=== PATIENT | female | born 1965 | race American Indian/Alaskan Native ===

== ENCOUNTER 2021-02-01 16:56 | Inpatient (IN) | payer MEDICARE ==
[2021-02-01] MEDS ORDERED: DEXTROSE 50% IN WATER (25GM) 50 ML SYRINGE IV ONE ×4 (17:05→23:51)
--- NOTE | 2021-02-01 17:57 | Emergency Department Report ---
ED General Adult HPI - General Chief complaint: Hypoglycemia Stated complaint: LOW BLOOD GLUCOSE Time Seen by Provider: 02/01/21 17:02 Source: EMS Mode of arrival: Stretcher Limitations: Other - History of Present Illness Initial comments: 55-year-old female, history of diabetes, hypertension, end-stage renal disease, presents to ED via EMS for hypoglycemia. Per EMS, this is the third episode of hypoglycemia that they were called out for today. The previous to EMS cause, patient was given D50 and was not transported. This time, EMS reports Accu-Chek was 28. He was given 1 amp of D50 and transported to the ED. Here in the ED her Accu-Chek is 38. Patient is awake and alert. Patient takes glyburide 2.5 mg daily, she is not on insulin. Daughter at bedside, she reports patient is on dialysis. She is on a schedule. Today is currently Wednesday. She missed dialysis today. Patient went to dialysis on . Vincenzo audreytomeka missed dialysis earlier this week on Wednesday due to diarrhea. Daughter reports patient had a prolonged hospitalization for approximately 1.5 months at [facility]. She then went into rehab and was discharged from rehab last week. Patient is poor historian. Daughter states she is unsure what the patient's diagnosis was, but states she initially went in for abdominal pain. States patient did not undergo any surgeries. Patient is not ambulatory. Patient is deaf. -: This morning Consistency: intermittent Improves with: eating, other (D50) Worsens with: none Associated Symptoms: denies other symptoms Treatments Prior to Arrival: other (D50) - Related Data Previous Rx's Medication Instructions Recorded Last Taken Type Lispro Insulin [HumaLOG] 0 unit SUB-Q ACHS units 03/30/19 Unknown Rx Aspirin EC [Halfprin EC] 81 mg PO QDAY #30 tablet 04/08/20 Unknown Rx Insulin Lispro [Humalog] 5 unit SUB-Q ACHS #1 vial 04/08/20 Unknown Rx amLODIPine 10 mg PO QDAY #30 tablet 04/08/20 Unknown Rx carvediloL [Coreg] 6.25 mg PO BID #60 tablet 04/08/20 Unknown Rx hydrALAZINE [Apresoline TAB] 100 mg PO Q8HR #90 tab 04/08/20 Unknown Rx oxyCODONE /ACETAMINOPHEN [Percocet 1 tab PO Q6H PRN tablet 04/08/20 Unknown Rx 5/325 mg] Allergies Allergy/AdvReac Type Severity Reaction Status Date / Time No Known Allergies Allergy Verified 09/29/13 06:44 ED Review of Systems ROS: Stated complaint: LOW BLOOD GLUCOSE Other details as noted in HPI Comment: All other systems reviewed and negative Constitutional: denies: chills, fever Gastrointestinal: diarrhea ED Past Medical Hx - Past Medical History Hx Hypertension: Yes Hx Heart Attack/AMI: No Hx Congestive Heart Failure: No Hx Diabetes: Yes Hx Deep Vein Thrombosis: No Hx Liver Disease: No Hx Renal Disease: Yes (dialysis m/w/f) Hx Kidney Stones: No Hx Asthma: No Hx COPD: No Additional medical history: Deaf - Surgical History Hx Coronary Stent: No Hx Pacemaker: No Hx Internal Defibrillator: No Additional Surgical History: right chest permacath - Social History Smoking Status: Unknown if ever smoked - Medications Home Medications: Home Medications Medication Instructions Recorded Confirmed Last Taken Type Lispro Insulin [HumaLOG] 0 unit SUB-Q ACHS units 03/30/19 04/07/20 Unknown Rx Aspirin EC [Halfprin EC] 81 mg PO QDAY #30 tablet 04/08/20 Unknown Rx Insulin Lispro [Humalog] 5 unit SUB-Q ACHS #1 vial 04/08/20 Unknown Rx amLODIPine 10 mg PO QDAY #30 tablet 04/08/20 Unknown Rx carvediloL [Coreg] 6.25 mg PO BID #60 tablet 04/08/20 Unknown Rx hydrALAZINE [Apresoline TAB] 100 mg PO Q8HR #90 tab 04/08/20 Unknown Rx oxyCODONE /ACETAMINOPHEN [Percocet 1 tab PO Q6H PRN tablet 04/08/20 Unknown Rx 5/325 mg] ED Physical Exam - General Limitations: Other General appearance: alert, in no apparent distress - Head Head exam: Present: atraumatic, normocephalic - Eye Eye exam: Present: normal appearance, EOMI - ENT ENT exam: Present: mucous membranes moist - Neck Neck exam: Present: normal inspection - Respiratory Respiratory exam: Present: normal lung sounds bilaterally. Absent: respiratory distress - Cardiovascular Cardiovascular Exam: Present: regular rate, normal rhythm - GI/Abdominal GI/Abdominal exam: Present: soft. Absent: distended, tenderness - Neurological Exam Neurological exam: Present: alert, oriented X3 - Psychiatric Psychiatric exam: Present: normal affect, normal mood - Skin Skin exam: Present: warm, dry, intact, normal color ED Course Vital Signs 02/01/21 02/01/21 02/01/21 17:00 17:31 17:45 Pulse Rate 71 66 Respiratory 18 18 19 Rate Blood Pressure 169/74 169/74 Blood Pressure [Right] O2 Sat by Pulse 100 86 100 Oximetry 02/01/21 02/01/21 02/01/21 18:01 18:15 18:30 Pulse Rate 64 66 63 Respiratory 11 L 21 15 Rate Blood Pressure 93/46 93/46 169/66 Blood Pressure [Right] O2 Sat by Pulse 100 100 100 Oximetry 02/01/21 02/01/21 02/01/21 18:45 19:00 19:24 Pulse Rate 63 62 65 Respiratory 16 22 17 Rate Blood Pressure 93/46 160/59 Blood Pressure 160/59 [Right] O2 Sat by Pulse 100 100 100 Oximetry 02/01/21 21:00 Pulse Rate 64 Respiratory 16 Rate Blood Pressure 169/69 Blood Pressure [Right] O2 Sat by Pulse 99 Oximetry ED Medical Decision Making - Lab Data Result diagrams: 02/01/21 17:48 02/01/21 17:48 - Medical Decision Making 55-year-old female presents to ED with 3 episodes of hypoglycemia today. Patient was given D50 by EMS, D50 here in the ED, along with a snack bag. Glucose 225 after only reaching 71. Patient will be admitted to hospitalist, Dr. Vizcarra. We will be giving glucagon and initiating a D10 drip. Every 1 hour Accu-Cheks ordered. Remainder labs unremarkable. - Differential Diagnosis Medication induced hypoglycemia, sepsis, hyperkalemia Critical care attestation.: If time is entered above; I have spent that time in minutes in the direct care of this critically ill patient, excluding procedure time. ED Disposition Clinical Impression: Hypoglycemia, ESRD (end stage renal disease) Disposition: ADMITTED INPATIENT Is pt being admited?: Yes Condition: Stable
[2021-02-01 18:11] LABS: Basophils % (Auto) 0.7 % (0.0-1.8); Eosinophils # (Auto) 0.1 K/mm3 (0.0-0.4); Eosinophils % (Auto) 0.9 % (0.0-4.3); Hemoglobin 9.2 gm/dl (10.1-14.3); Lymphocytes % (Auto) 14.9 % (13.4-35.0); Mean Corpuscular HGB Conc 32 % (30-34); Mean Corpuscular Volume 83 fl (79-97); Monocytes # (Auto) 0.3 K/mm3 (0.0-0.8); Monocytes % (Auto) 4.3 % (0.0-7.3); Platelet Count 399 K/mm3 (140-440)
[2021-02-01 18:12] LABS: Red Cell Distribution Width 20.9 % (13.2-15.2)
[2021-02-01 18:35] LABS: Alanine Aminotransferase 5 units/L (7-56); Albumin 3.5 g/dL (3.9-5); Blood Urea Nitrogen 40 mg/dL (7-17); Calcium 9.3 mg/dL (8.4-10.2); Hemolysis Index 37
[2021-02-01 18:40] LABS: BUN/Creatinine Ratio 6; Bilirubin,Direct < 0.2 mg/dL (0-0.2)
[2021-02-01] MEDS ORDERED: GLUCAGON (HUMAN RECOMBINANT) 1 MG/ML INJ IV ONE (18:42)
[2021-02-01] MEDS ORDERED: DEXTROSE 10% IN WATER 1,000 ML IV SCH (19:00)
--- NOTE | 2021-02-01 21:30 | History and Physical Report ---
History of Present Illness Date of examination: 02/01/21 Date of admission: 02/01/21 18:44 Chief complaint: Altered sensorium since a.m. History of present illness: 55-year-old -[place] female with history of hypertension, end-stage renal disease and insulin-dependent diabetes presents with severe hypoglycemia. Apparently EMS was called 3 times for blood glucose levels ranging within 20 and 50. Patient was given D50 but did not improve. Hence patient was brought to the emergency room. In the emergency room patient had persistent hypoglycemia which patient is being admitted. Patient is awake and alert during my examination. Wants to go home but because of persistent low blood glucose levels patient was convinced to stay for at least 24 hours. Patient was started on D5 IV and also IV glucagon was given. Patient was given octreotide drip. Sh e does not respond. Patient needs dialysis due to diarrhea. There is a questionable history of patient being on oral hypoglycemics but not present on the med reconciliation sheet - Past Medical History --Hypertension: Yes --Diabetes: Yes --Renal Disease: Yes (dialysis m/w/f) --Additional medical history: Deaf - Surgical History --Additional Surgical History: right chest permacath - Social History --Smoking Status: Unknown if ever smoked - Medications Home Medications: Home Medications Medication Instructions Recorded Confirmed Last Taken Type Lispro Insulin [HumaLOG] 0 unit SUB-Q ACHS units 03/30/19 04/07/20 Unknown Rx Aspirin EC [Halfprin EC] 81 mg PO QDAY #30 tablet 04/08/20 Unknown Rx Insulin Lispro [Humalog] 5 unit SUB-Q ACHS #1 vial 04/08/20 Unknown Rx amLODIPine 10 mg PO QDAY #30 tablet 04/08/20 Unknown Rx carvediloL [Coreg] 6.25 mg PO BID #60 tablet 04/08/20 Unknown Rx hydrALAZINE [Apresoline TAB] 100 mg PO Q8HR #90 tab 04/08/20 Unknown Rx oxyCODONE /ACETAMINOPHEN [Percocet 1 tab PO Q6H PRN tablet 04/08/20 Unknown Rx 5/325 mg] Review of Systems ROS: Stated complaint: LOW BLOOD GLUCOSE Other details as noted in HPI Comment: All other systems reviewed and negative Constitutional: denies: chills, fever Gastrointestinal: diarrhea Medications and Allergies Allergies Allergy/AdvReac Type Severity Reaction Status Date / Time No Known Allergies Allergy Verified 09/29/13 06:44 Home Medications Medication Instructions Recorded Confirmed Last Taken Type Lispro Insulin [HumaLOG] 0 unit SUB-Q ACHS units 03/30/19 04/07/20 Unknown Rx Aspirin EC [Halfprin EC] 81 mg PO QDAY #30 tablet 04/08/20 Unknown Rx Insulin Lispro [Humalog] 5 unit SUB-Q ACHS #1 vial 04/08/20 Unknown Rx amLODIPine 10 mg PO QDAY #30 tablet 04/08/20 Unknown Rx carvediloL [Coreg] 6.25 mg PO BID #60 tablet 04/08/20 Unknown Rx hydrALAZINE [Apresoline TAB] 100 mg PO Q8HR #90 tab 04/08/20 Unknown Rx oxyCODONE /ACETAMINOPHEN [Percocet 1 tab PO Q6H PRN tablet 04/08/20 Unknown Rx 5/325 mg] Active Meds: Active Medications Dextrose (D10w) 1,000 mls @ 75 mls/hr IV DIRECT SHRUTI Last Admin: 02/01/21 19:18 Dose: 75 mls/hr Documented by: Exam - Constitutional Vitals: Temp Pulse Resp BP Pulse Ox 64 16 169/69 99 02/01/21 21:00 02/01/21 21:00 02/01/21 21:00 02/01/21 21:00 General appearance: Present: no acute distress, well-nourished - EENT Eyes: Present: PERRL ENT: hearing intact, clear oral mucosa - Neck Neck: Present: supple, normal ROM - Respiratory Respiratory effort: normal Respiratory: bilateral: CTA - Cardiovascular Rhythm: regular Heart Sounds: Present: S1 & S2. Absent: rub, click - Extremities Extremities: pulses symmetrical, No edema Peripheral Pulses: within normal limits - Abdominal General gastrointestinal: Present: soft, non-tender, non-distended, normal bowel sounds Female genitourinary: Present: normal - Integumentary Integumentary: Present: clear, warm, dry - Musculoskeletal Musculoskeletal: gait normal, strength equal bilaterally - Psychiatric Psychiatric: appropriate mood/affect, intact judgment & insight - Neurologic Neurologic: CNII-XII intact, moves all extremities Results - Labs CBC & Chem 7: 02/01/21 17:48 02/01/21 22:45 Labs: Laboratory Last Values WBC 6.4 K/mm3 (4.5-11.0) 02/01/21 17:48 RBC 3.50 M/mm3 (3.65-5.03) L 02/01/21 17:48 Hgb 9.2 gm/dl (10.1-14.3) L 02/01/21 17:48 Hct 29.0 % (30.3-42.9) L 02/01/21 17:48 MCV 83 fl (79-97) 02/01/21 17:48 MCH 26 pg (28-32) L 02/01/21 17:48 MCHC 32 % (30-34) 02/01/21 17:48 RDW 20.9 % (13.2-15.2) H 02/01/21 17:48 Plt Count 399 K/mm3 (140-440) 02/01/21 17:48 Lymph % (Auto) 14.9 % (13.4-35.0) 02/01/21 17:48 [place] % (Auto) 4.3 % (0.0-7.3) 02/01/21 17:48 Eos % (Auto) 0.9 % (0.0-4.3) 02/01/21 17:48 Baso % (Auto) 0.7 % (0.0-1.8) 02/01/21 17:48 Lymph # (Auto) 1.0 K/mm3 (1.2-5.4) L 02/01/21 17:48 [place] # (Auto) 0.3 K/mm3 (0.0-0.8) 02/01/21 17:48 Eos # (Auto) 0.1 K/mm3 (0.0-0.4) 02/01/21 17:48 Baso # (Auto) 0.0 K/mm3 (0.0-0.1) 02/01/21 17:48 Seg Neutrophils % 79.2 % (40.0-70.0) H 02/01/21 17:48 Seg Neutrophils # 5.1 K/mm3 (1.8-7.7) 02/01/21 17:48 Sodium 137 mmol/L (137-145) 02/01/21 17:48 Potassium 5.0 mmol/L (3.6-5.0) 02/01/21 17:48 Chloride 97.2 mmol/L (98-107) L 02/01/21 17:48 Carbon Dioxide 23 mmol/L (22-30) 02/01/21 17:48 Anion Gap 22 mmol/L 02/01/21 17:48 BUN 40 mg/dL (7-17) H 02/01/21 17:48 Creatinine 6.5 mg/dL (0.6-1.2) H 02/01/21 17:48 Estimated GFR 8 ml/min 02/01/21 17:48 BUN/Creatinine Ratio 6 % 02/01/21 17:48 Glucose 58 mg/dL (65-100) L 02/01/21 17:48 POC Glucose 54 mg/dL (70-105) L 02/01/21 20:45 Calcium 9.3 mg/dL (8.4-10.2) 02/01/21 17:48 Total Bilirubin 0.30 mg/dL (0.1-1.2) 02/01/21 17:48 Direct Bilirubin < 0.2 mg/dL (0-0.2) 02/01/21 17:48 Indirect Bilirubin 0.1 mg/dL 02/01/21 17:48 AST 11 units/L (5-40) 02/01/21 17:48 ALT 5 units/L (7-56) L 02/01/21 17:48 Alkaline Phosphatase 120 units/L (35-129) 02/01/21 17:48 Total Protein 7.8 g/dL (6.3-8.2) 02/01/21 17:48 Albumin 3.5 g/dL (3.9-5) L 02/01/21 17:48 Albumin/Globulin Ratio 0.8 % 02/01/21 17:48 Short CBC 02/01/21 Range/Units 17:48 WBC 6.4 (4.5-11.0) K/mm3 Hgb 9.2 L (10.1-14.3) gm/dl Hct 29.0 L (30.3-42.9) % Plt Count 399 (140-440) K/mm3 BMP 02/01/21 02/01/21 17:48 22:45 Sodium 137 139 Potassium 5.0 4.9 Chloride 97.2 L 101.0 Carbon Dioxide 23 25 BUN 40 H 43 H Creatinine 6.5 H 6.9 H Glucose 58 L 31 L* Calcium 9.3 9.1 Liver Function 02/01/21 Range/Units 17:48 Total Bilirubin 0.30 (0.1-1.2) mg/dL Direct Bilirubin < 0.2 (0-0.2) mg/dL AST 11 (5-40) units/L ALT 5 L (7-56) units/L Alkaline Phosphatase 120 (35-129) units/L Albumin 3.5 L (3.9-5) g/dL Assessment and Plan Advance Directives: Yes (Full code) VTE prophylaxis?: Chemical Plan of care discussed with patient/family: Yes - Patient Problems (1) Acute metabolic encephalopathy Current Visit: No Status: Acute Plan to address problem: Secondary to persistent hypoglycemia Oral hypoglycemics to be discontinued permanently (2) Hypoglycemia Current Visit: Yes Status: Acute Plan to address problem: Patient IV D5/D10 along with D50 IV ampules and IV glucagon as necessary. Also octreotide was initiated depending on availability in the pharmacy No oral hypoglycemics at the time of discharge Very low insulin dosages because of end-stage renal disease (3) ESRD (end stage renal disease) Current Visit: Yes Status: Chronic Plan to address problem: Nephrology consulted for possible hemodialysis (4) Hypertension Current Visit: Yes Status: Chronic Qualifiers: Hypertension type: primary hypertension Qualified Code(s): I10 - Essential (primary) hypertension Plan to address problem: Continue antihypertensives and adjust medications as necessary (5) DVT prophylaxis Current Visit: Yes Status: Acute Plan to address problem: On heparin and GI prophylaxis
[2021-02-01] MEDS ORDERED: METOCLOPRAMIDE 10 MG/2 ML INJ IV PRN (21:31)
[2021-02-01] MEDS ORDERED: ACETAMINOPHEN 325 MG TAB PO PRN (21:31)
[2021-02-01] MEDS ORDERED: HYDROmorphone 1 MG/1 ML INJ IV PRN (21:31)
[2021-02-01] MEDS ORDERED: ONDANSETRON 4 MG/2 ML INJ IV PRN (21:31)
[2021-02-01] MEDS ORDERED: D5W/0.9% NACL 1,000 ML IV SCH (22:00)
[2021-02-01] MEDS ORDERED: SODIUM CHLORIDE 0.9% IV SCH (22:00)
[2021-02-01] MEDS ORDERED: GLUCAGON IV SCH (22:00)
[2021-02-01 23:35] LABS: Calcium 9.1 mg/dL (8.4-10.2)
[2021-02-02] MEDS ORDERED: DEXTROSE 50% IN WATER (25GM) 50 ML SYRINGE IV ONE ×3 (00:12→07:00)
[2021-02-02] MEDS: INSULIN LISPRO 100 UNIT/ML SUB-Q SCH ×9 (00:57→23:38)
[2021-02-02] MEDS: ASPIRIN EC 81 MG TAB PO SCH ×2 (01:05→09:24)
[2021-02-02] MEDS: amLODIPine 10 MG TAB PO SCH ×2 (01:05→09:25)
[2021-02-02] MEDS: carvediloL 6.25 MG TAB PO SCH ×3 (01:05→17:59)
[2021-02-02] MEDS: FAMOTIDINE 20 MG/2 ML INJ IV SCH ×2 (01:27→11:04)
[2021-02-02] MEDS: HEPARIN 5,000 UNIT/1 ML VIAL SUB-Q SCH ×3 (01:28→23:35)
[2021-02-02] MEDS: hydrALAZINE 100 MG TAB PO SCH ×4 (01:28→23:36)
[2021-02-02] MEDS: oxyCODONE /ACETAMINOPHEN 5-325MG TAB PO PRN ×2 (03:52→23:36)
[2021-02-02 07:36] LABS: Hematocrit 22.9 % (30.3-42.9); Hemoglobin 7.3 gm/dl (10.1-14.3); Mean Corpuscular HGB Conc 32 % (30-34); Mean Corpuscular Volume 80 fl (79-97); Platelet Count 334 K/mm3 (140-440); Red Blood Count 2.87 M/mm3 (3.65-5.03)
[2021-02-02] MEDS ORDERED: GLUCAGON (HUMAN RECOMBINANT) 1 MG/ML INJ IV ONE (07:36)
[2021-02-02] MEDS ORDERED: OCTREOTIDE 50 MCG/1 ML INJ IV ONE (07:38)
--- NOTE | 2021-02-02 07:50 | Consultation ---
History of Present Illness - Reason for Consult Consult date: 02/02/21 end stage renal disease - History of Present Illness patient with end stage renap disease on HD TTS, was admitted last night for altered mental status and was found to have hypoglycemia. renal consult was requested for HD management while inpatient, last HD was per chart Past History Past Medical History: ESRD Medications and Allergies Allergies Allergy/AdvReac Type Severity Reaction Status Date / Time No Known Allergies Allergy Verified 09/29/13 06:44 Home Medications Medication Instructions Recorded Confirmed Last Taken Type Lispro Insulin [HumaLOG] 0 unit SUB-Q ACHS units 03/30/19 04/07/20 Unknown Rx Aspirin EC [Halfprin EC] 81 mg PO QDAY #30 tablet 04/08/20 Unknown Rx Insulin Lispro [Humalog] 5 unit SUB-Q ACHS #1 vial 04/08/20 Unknown Rx amLODIPine 10 mg PO QDAY #30 tablet 04/08/20 Unknown Rx carvediloL [Coreg] 6.25 mg PO BID #60 tablet 04/08/20 Unknown Rx hydrALAZINE [Apresoline TAB] 100 mg PO Q8HR #90 tab 04/08/20 Unknown Rx oxyCODONE /ACETAMINOPHEN [Percocet 1 tab PO Q6H PRN tablet 04/08/20 Unknown Rx 5/325 mg] Active Meds: Active Medications Acetaminophen (Acetaminophen 325 Mg Tab) 650 mg PO Q4H PRN PRN Reason: Pain MILD(1-3)/Fever >100.5/PALOMINO Amlodipine Besylate (Amlodipine 10 Mg Tab) 10 mg PO QDAY [facility] Last Admin: 02/02/21 01:05 Dose: 10 mg Documented by: Aspirin (Aspirin Ec 81 Mg Tab) 81 mg PO QDAY [facility] Last Admin: 02/02/21 01:05 Dose: 81 mg Documented by: Carvedilol (Carvedilol 6.25 Mg Tab) 6.25 mg PO BID@0800,1700 [facility] Last Admin: 02/02/21 01:05 Dose: 6.25 mg Documented by: Dextrose (Dextrose 50% In Water (25gm) 50 Ml Syringe) 50 ml IV ONCE@0800 [facility]; Protocol Stop: 02/02/21 11:00 Dextrose (Dextrose 50% In Water (25gm) 50 Ml Syringe) 0 ml IV ONCE PRN PRN Reason: Hypoglycemia Famotidine (Famotidine 20 Mg/2 Ml Inj) 20 mg IV QAM [facility] Last Admin: 02/02/21 01:27 Dose: 20 mg Documented by: Glucagon (Glucagon (Human Recombinant) 1 Mg/Ml Inj) 1 mg IV ONCE ONE Stop: 02/02/21 07:37 Heparin Sodium (Porcine) (Heparin 5,000 Unit/1 Ml Vial) 5,000 unit SUB-Q Q12HR [facility] Last Admin: 02/02/21 01:28 Dose: 5,000 unit Documented by: Hydralazine HCl (Hydralazine 100 Mg Tab) 100 mg PO Q8HR [facility] Last Admin: 02/02/21 07:42 Dose: 100 mg Documented by: Hydromorphone HCl (Hydromorphone 1 Mg/1 Ml Inj) 0.5 mg IV Q3H PRN PRN Reason: Pain , Severe (7-10) Dextrose/Sodium Chloride (D5ns) 1,000 mls @ 75 mls/hr IV DIRECT SHRUTI Glucagon 2 mg/ Sodium Chloride 52 mls @ 0 mls/hr IV TITR [facility] Last Admin: 02/02/21 01:12 Dose: 1 mls/hr Documented by: Insulin Human Lispro (Insulin Lispro 100 Unit/Ml) 0 unit SUB-Q Q3H [facility]; Protocol Last Admin: 02/02/21 06:59 Dose: Not Given Documented by: Metoclopramide HCl (Metoclopramide 10 Mg/2 Ml Inj) 5 mg IV Q6H PRN PRN Reason: Nausea And Vomiting Octreotide Acetate (Octreotide 50 Mcg/1 Ml Inj) 50 mcg IV ONCE ONE Stop: 02/02/21 07:39 Ondansetron HCl (Ondansetron 4 Mg/2 Ml Inj) 4 mg IV Q3H PRN PRN Reason: Nausea And Vomiting Oxycodone/Acetaminophen (Oxycodone /Acetaminophen 5-325mg Tab) 1 tab PO Q6H PRN PRN Reason: Pain, Moderate (4-6) Last Admin: 02/02/21 03:52 Dose: 1 tab Documented by: Sodium Chloride (Sodium Chloride 0.9% 10 Ml Flush Syringe) 10 ml IV BID [facility] Last Admin: 02/02/21 01:07 Dose: 10 ml Documented by: Sodium Chloride (Sodium Chloride 0.9% 10 Ml Flush Syringe) 10 ml IV PRN PRN PRN Reason: LINE FLUSH Review of Systems ROS unobtainable: due to mental status Exam - Vital Signs Vital signs: Vital Signs Resp Pulse Ox 18 100 02/01/21 17:00 02/01/21 17:00 Results - Lab Results 02/01/21 17:48 02/01/21 22:45 Most recent lab results Calcium 9.1 mg/dL (8.4-10.2) 02/01/21 22:45 Assessment and Plan ESRD on Hemodialysis: Hypoglycemia Altered Mental status: Diabetes Mellitus: Plan: -Hemodialysis today for UF and clearance -Fluid restriction of 1 liter per day -Obtain daily weights -Monitor I/O's -Renal diet -Assess dialysis needs daily
[2021-02-02 07:56] LABS: Red Cell Distribution Width 20.2 % (13.2-15.2)
[2021-02-02 07:58] LABS: Albumin 2.6 g/dL (3.9-5); Blood Urea Nitrogen 46 mg/dL (7-17); Calcium 8.5 mg/dL (8.4-10.2); Hemolysis Index 14
[2021-02-02] MEDS ORDERED: DEXTROSE 50% IN WATER (25GM) 50 ML SYRINGE IV SCH (08:00)
[2021-02-02 08:01] LABS: Alanine Aminotransferase < 5 units/L (7-56); BUN/Creatinine Ratio 7
--- NOTE | 2021-02-02 14:18 | Progress Note ---
Assessment and Plan 55-year-old -[place] female with history of hypertension, end-stage renal disease and insulin-dependent diabetes presents with presented with AMS and severe hypoglycemia. Apparently EMS was called 3 times for blood glucose levels ranging within 20 and 50. Patient was given D50 but did not improve. Hence patient was brought to the emergency room. In the emergency room patient had persistent hypoglycemia for which patient was admitted. A/P (1) Acute metabolic encephalopathy Current Visit: No Status: Acute Plan to address problem: Secondary to persistent hypoglycemia Oral hypoglycemics to be discontinued permanently (2) Hypoglycemia Current Visit: Yes Status: Acute Plan to address problem: Patient IV D5/D10 along with D50 IV ampules and IV glucagon as necessary. Also octreotide was initiated depending on availability in the pharmacy No oral hypoglycemics at the time of discharge Very low insulin dosages because of end-stage renal disease (3) ESRD (end stage renal disease) Current Visit: Yes Status: Chronic Plan to address problem: Nephrology consulted for possible hemodialysis (4) Hypertension Current Visit: Yes Status: Chronic Qualifiers: Hypertension type: primary hypertension Qualified Code(s): I10 - Essential (primary) hypertension Plan to address problem: Continue antihypertensives and adjust medications as necessary (5) DVT prophylaxis Current Visit: Yes Status: Acute Plan to address problem: On heparin and GI prophylaxis Daily clinical course: 02/02: Still appears to lethargic, cont D5w, nephrology consulted for HD, follow clinically Subjective Date of service: 02/02/21 Interval history: Patient seen and examined Still appears very lethargic no acute event per RN vitals noted and stable Objective - Constitutional Vitals: Vital Signs - 12hr 02/02/21 02/02/21 02/02/21 02:24 03:12 08:08 Temperature 97.3 F L 97.8 F Pulse Rate 62 58 L Respiratory 17 18 18 Rate Blood Pressure 159/62 160/68 O2 Sat by Pulse 100 98 100 Oximetry 02/02/21 09:25 Temperature Pulse Rate 58 L Respiratory Rate Blood Pressure 160/68 O2 Sat by Pulse Oximetry General appearance: Present: well-nourished - EENT Eyes: PERRL, EOM intact ENT: hearing intact, clear oral mucosa Ears: bilateral: normal - Neck Neck: supple, normal ROM - Respiratory Respiratory effort: normal Respiratory: bilateral: CTA - Cardiovascular Rhythm: regular Heart Sounds: Present: S1 & S2. Absent: gallop, rub Extremities: pulses intact, No edema, normal color, Full ROM - Gastrointestinal General gastrointestinal: Present: soft, non-tender, non-distended, normal bowel sounds - Integumentary Integumentary: clear, warm, dry - Musculoskeletal Musculoskeletal: 1, strength equal bilaterally - Neurologic Neurologic: moves all extremities - Psychiatric Psychiatric: other (lethargic ) - Labs CBC & Chem 7: 02/02/21 07:19 02/02/21 07:19 Labs: Abnormal lab results 02/01/21 02/01/21 02/01/21 Range/Units 17:11 17:48 17:48 RBC 3.50 L (3.65-5.03) M/mm3 Hgb 9.2 L (10.1-14.3) gm/dl Hct 29.0 L (30.3-42.9) % MCH 26 L (28-32) pg RDW 20.9 H (13.2-15.2) % Lymph # (Auto) 1.0 L (1.2-5.4) K/mm3 Seg Neutrophils % 79.2 H (40.0-70.0) % Sodium (137-145) mmol/L Potassium (3.6-5.0) mmol/L Chloride 97.2 L (98-107) mmol/L Carbon Dioxide (22-30) mmol/L BUN 40 H (7-17) mg/dL Creatinine 6.5 H (0.6-1.2) mg/dL Glucose 58 L (65-100) mg/dL POC Glucose 38 L (70-105) mg/dL Hemoglobin A1c (4-6) % ALT 5 L (7-56) units/L Albumin 3.5 L (3.9-5) g/dL 02/01/21 02/01/21 02/01/21 Range/Units 18:54 20:45 22:45 RBC (3.65-5.03) M/mm3 Hgb (10.1-14.3) gm/dl Hct (30.3-42.9) % MCH (28-32) pg RDW (13.2-15.2) % Lymph # (Auto) (1.2-5.4) K/mm3 Seg Neutrophils % (40.0-70.0) % Sodium (137-145) mmol/L Potassium (3.6-5.0) mmol/L Chloride (98-107) mmol/L Carbon Dioxide (22-30) mmol/L BUN 43 H (7-17) mg/dL Creatinine 6.9 H (0.6-1.2) mg/dL Glucose 31 L* (65-100) mg/dL POC Glucose 25 L 54 L (70-105) mg/dL Hemoglobin A1c (4-6) % ALT (7-56) units/L Albumin (3.9-5) g/dL 02/01/21 02/02/21 02/02/21 Range/Units 23:46 00:08 00:47 RBC (3.65-5.03) M/mm3 Hgb (10.1-14.3) gm/dl Hct (30.3-42.9) % MCH (28-32) pg RDW (13.2-15.2) % Lymph # (Auto) (1.2-5.4) K/mm3 Seg Neutrophils % (40.0-70.0) % Sodium (137-145) mmol/L Potassium (3.6-5.0) mmol/L Chloride (98-107) mmol/L Carbon Dioxide (22-30) mmol/L BUN (7-17) mg/dL Creatinine (0.6-1.2) mg/dL Glucose (65-100) mg/dL POC Glucose 12 L 57 L 65 L (70-105) mg/dL Hemoglobin A1c (4-6) % ALT (7-56) units/L Albumin (3.9-5) g/dL 02/02/21 02/02/21 02/02/21 Range/Units 02:54 06:51 07:19 RBC 2.87 L (3.65-5.03) M/mm3 Hgb 7.3 L (10.1-14.3) gm/dl Hct 22.9 L D (30.3-42.9) % MCH 26 L (28-32) pg RDW 20.2 H (13.2-15.2) % Lymph # (Auto) (1.2-5.4) K/mm3 Seg Neutrophils % (40.0-70.0) % Sodium (137-145) mmol/L Potassium (3.6-5.0) mmol/L Chloride (98-107) mmol/L Carbon Dioxide (22-30) mmol/L BUN (7-17) mg/dL Creatinine (0.6-1.2) mg/dL Glucose (65-100) mg/dL POC Glucose 59 L 15 L (70-105) mg/dL Hemoglobin A1c (4-6) % ALT (7-56) units/L Albumin (3.9-5) g/dL 02/02/21 02/02/21 Range/Units 07:19 07:19 RBC (3.65-5.03) M/mm3 Hgb (10.1-14.3) gm/dl Hct (30.3-42.9) % MCH (28-32) pg RDW (13.2-15.2) % Lymph # (Auto) (1.2-5.4) K/mm3 Seg Neutrophils % (40.0-70.0) % Sodium 134 L (137-145) mmol/L Potassium 5.2 H (3.6-5.0) mmol/L Chloride (98-107) mmol/L Carbon Dioxide 21 L (22-30) mmol/L BUN 46 H (7-17) mg/dL Creatinine 6.4 H (0.6-1.2) mg/dL Glucose (65-100) mg/dL POC Glucose (70-105) mg/dL Hemoglobin A1c < 4.0 L (4-6) % ALT < 5 L (7-56) units/L Albumin 2.6 L (3.9-5) g/dL
[2021-02-02] MEDS: DEXTROSE 50% IN WATER (25GM) 50 ML SYRINGE IV PRN (14:48)
[2021-02-02 16:43] LABS: Anisocytosis 1+; Platelet Estimate Consistent w Auto; Poikilocytosis 1+; Schistocytes Few; Total Cells Counted 100
[2021-02-03] MEDS: INSULIN LISPRO 100 UNIT/ML SUB-Q SCH ×7 (03:13→22:58)
[2021-02-03] MEDS: hydrALAZINE 100 MG TAB PO SCH ×3 (08:01→21:26)
[2021-02-03] MEDS: carvediloL 6.25 MG TAB PO SCH ×2 (11:45→16:45)
[2021-02-03] MEDS: HEPARIN 5,000 UNIT/1 ML VIAL SUB-Q SCH ×2 (11:46→21:26)
[2021-02-03] MEDS: ASPIRIN EC 81 MG TAB PO SCH (11:46)
[2021-02-03] MEDS: amLODIPine 10 MG TAB PO SCH (11:46)
--- NOTE | 2021-02-03 12:07 | Progress Note ---
Assessment and Plan Assessment: ESRD on Hemodialysis Hypoglycemia Altered Mental status Diabetes Mellitus Deaf Plan: -Hemodialysis today for UF and clearance -Fluid restriction of 1 liter per day -Obtain daily weights -Monitor I/O's -Assess dialysis needs daily -Plan of care reviewed by Dr. Freedman Subjective Date of service: 02/03/21 Principal diagnosis: Hypoglycemia, ESRD Interval history: Patient seen in dialysis unit. Awake but confused. She is deaf. Objective - Vital Signs Vital signs: Vital Signs - 12hr 02/03/21 02/03/21 02/03/21 02:00 04:40 09:05 Temperature 97.6 F 97.4 F L Pulse Rate 72 67 Respiratory 16 18 19 Rate Blood Pressure 160/64 137/51 O2 Sat by Pulse 100 100 98 Oximetry - General Appearance General appearance: other (Awake but confused) EENT: ATNC, other (Deaf) Neck: no JVD, supple Respiratory: Present: Decreased Breath Sounds Cardiology: S1S2 Gastrointestinal: normoactive bowel sounds Integumentary: warm and dry Neurologic: other (Awake but confused) Musculoskeletal: other (Has eschar to bottom of heels) - Lab 02/02/21 07:19 02/02/21 07:19 Most recent lab results Calcium 8.5 mg/dL (8.4-10.2) 02/02/21 07:19 Medications & Allergies - Medications Allergies/Adverse Reactions: Allergies No Known Allergies Allergy (Verified 09/29/13 06:44) Home Medications: Home Medications Medication Instructions Recorded Confirmed Last Taken Type Lispro Insulin [HumaLOG] 0 unit SUB-Q ACHS units 03/30/19 04/07/20 Unknown Rx Aspirin EC [Halfprin EC] 81 mg PO QDAY #30 tablet 04/08/20 Unknown Rx Insulin Lispro [Humalog] 5 unit SUB-Q ACHS #1 vial 04/08/20 Unknown Rx amLODIPine 10 mg PO QDAY #30 tablet 04/08/20 Unknown Rx carvediloL [Coreg] 6.25 mg PO BID #60 tablet 04/08/20 Unknown Rx hydrALAZINE [Apresoline TAB] 100 mg PO Q8HR #90 tab 04/08/20 Unknown Rx oxyCODONE /ACETAMINOPHEN [Percocet 1 tab PO Q6H PRN tablet 04/08/20 Unknown Rx 5/325 mg] Active Medications: Generic Name Dose Route Start Last Admin Trade Name Freq PRN Reason Stop Dose Admin Acetaminophen 650 mg 02/01/21 21:31 Acetaminophen 325 Mg Tab PO Q4H PRN Pain MILD(1-3)/Fever >100.5/PALOMINO Amlodipine Besylate 10 mg 02/01/21 22:00 02/03/21 11:46 Amlodipine 10 Mg Tab PO Not Given QDAY [facility] Aspirin 81 mg 02/01/21 22:00 02/03/21 11:46 Aspirin Ec 81 Mg Tab PO Not Given QDAY [facility] Carvedilol 6.25 mg 02/01/21 22:00 02/03/21 11:45 Carvedilol 6.25 Mg Tab PO Not Given BID@0800,1700 [facility] Dextrose 0 ml 02/02/21 07:39 02/02/21 14:48 Dextrose 50% In Water (25gm) 50 Ml Syringe IV 15 ml ONCE PRN Administration Hypoglycemia Famotidine 20 mg 02/03/21 12:00 Famotidine 20 Mg Tab PO QAM [facility] Heparin Sodium (Porcine) 5,000 unit 02/01/21 22:00 02/03/21 11:46 Heparin 5,000 Unit/1 Ml Vial SUB-Q Not Given Q12HR [facility] Hydralazine HCl 100 mg 02/01/21 22:00 02/03/21 08:01 Hydralazine 100 Mg Tab PO 100 mg Q8HR [facility] Administration Hydromorphone HCl 0.5 mg 02/01/21 21:31 Hydromorphone 1 Mg/1 Ml Inj IV Q3H PRN Pain , Severe (7-10) Glucagon 2 mg/ Sodium Chloride 52 mls @ 0 mls/hr 02/01/21 22:00 02/02/21 01:12 IV 1 mls/hr TITR SHRUTI Administration As Directed Insulin Human Lispro 0 unit 02/01/21 22:00 02/03/21 11:46 Insulin Lispro 100 Unit/Ml SUB-Q Not Given Q3H [facility] Protocol Metoclopramide HCl 5 mg 02/01/21 21:31 Metoclopramide 10 Mg/2 Ml Inj IV Q6H PRN Nausea And Vomiting Ondansetron HCl 4 mg 02/01/21 21:31 Ondansetron 4 Mg/2 Ml Inj IV Q3H PRN Nausea And Vomiting Oxycodone/Acetaminophen 1 tab 02/01/21 21:30 02/02/21 23:36 Oxycodone /Acetaminophen 5-325mg Tab PO 1 tab Q6H PRN Administration Pain, Moderate (4-6) Sodium Chloride 10 ml 02/01/21 22:00 02/02/21 23:37 Sodium Chloride 0.9% 10 Ml Flush Syringe IV 10 ml BID SHRUTI Administration Sodium Chloride 10 ml 02/01/21 21:31 Sodium Chloride 0.9% 10 Ml Flush Syringe IV PRN PRN LINE FLUSH
--- NOTE | 2021-02-03 13:57 | Progress Note ---
Assessment and Plan 55-year-old -[place] female with history of hypertension, end-stage renal disease and insulin-dependent diabetes presents with presented with AMS and severe hypoglycemia. Apparently EMS was called 3 times for blood glucose levels ranging within 20 and 50. Patient was given D50 but did not improve. Hence patient was brought to the emergency room. In the emergency room patient had persistent hypoglycemia for which patient was admitted. A/P (1) Acute metabolic encephalopathy Current Visit: No Status: Acute Plan to address problem: Secondary to persistent hypoglycemia Oral hypoglycemics to be discontinued permanently (2) Hypoglycemia Current Visit: Yes Status: Acute Plan to address problem: Patient IV D5/D10 along with D50 IV ampules and IV glucagon as necessary. Also octreotide was initiated depending on availability in the pharmacy No oral hypoglycemics at the time of discharge Very low insulin dosages because of end-stage renal disease (3) ESRD (end stage renal disease) Current Visit: Yes Status: Chronic Plan to address problem: Nephrology consulted for possible hemodialysis (4) Hypertension Current Visit: Yes Status: Chronic Qualifiers: Hypertension type: primary hypertension Qualified Code(s): I10 - Essential (primary) hypertension Plan to address problem: Continue antihypertensives and adjust medications as necessary (5) DVT prophylaxis Current Visit: Yes Status: Acute Plan to address problem: On heparin and GI prophylaxis Daily clinical course: 02/02: Still appears to lethargic, cont D5w, nephrology consulted for HD, follow clinically 02/03: s/p HD today, will d/c D5w and monitor BG. tolerating diet. If BG stable w/o D5W then d/c tomorrow am Subjective Date of service: 02/03/21 Principal diagnosis: Hypoglycemia, ESRD Interval history: Patient seen and examined Patient more alert and awake no acute event per RN vitals noted and stable Objective - Exam Narrative Exam: General appearance: Present: well-nourished - EENT Eyes: PERRL, EOM intact ENT: hearing intact, clear oral mucosa Ears: bilateral: normal - Neck Neck: supple, normal ROM - Respiratory Respiratory effort: normal Respiratory: bilateral: CTA - Cardiovascular Rhythm: regular Heart Sounds: Present: S1 & S2. Absent: gallop, rub Extremities: pulses intact, No edema, normal color, Full ROM - Gastrointestinal General gastrointestinal: Present: soft, non-tender, non-distended, normal bowel sounds - Integumentary Integumentary: clear, warm, dry - Musculoskeletal Musculoskeletal: 1, strength equal bilaterally - Neurologic Neurologic: moves all extremities - Psychiatric Psychiatric: co-operative - Constitutional Vitals: Vital Signs - 12hr 02/03/21 02/03/21 02/03/21 02:00 04:40 09:05 Temperature 97.6 F 97.4 F L Pulse Rate 72 67 Respiratory 16 18 19 Rate Blood Pressure 160/64 137/51 O2 Sat by Pulse 100 100 98 Oximetry - Labs CBC & Chem 7: 02/02/21 07:19 02/02/21 07:19 Labs: Abnormal lab results 02/02/21 02/02/21 02/02/21 Range/Units 07:19 14:35 20:11 Seg Neuts % (Manual) 80.0 H (40.0-70.0) % POC Glucose 61 L 110 H (70-105) mg/dL 02/02/21 02/03/21 Range/Units 23:09 02:43 Seg Neuts % (Manual) (40.0-70.0) % POC Glucose 127 H 115 H (70-105) mg/dL
[2021-02-03 14:51] LABS: Hepatitis C Virus Antibody Non-Reactive (NonReactive)
[2021-02-03 14:55] LABS: Hepatitis B Surface Antigen Negative (Negative)
[2021-02-03] MEDS: FAMOTIDINE 20 MG TAB PO SCH (15:37)
[2021-02-04] MEDS: INSULIN LISPRO 100 UNIT/ML SUB-Q SCH ×8 (01:45→22:26)
[2021-02-04] MEDS: hydrALAZINE 100 MG TAB PO SCH ×3 (05:11→22:40)
[2021-02-04 07:27] LABS: Hematocrit 21.4 % (30.3-42.9); Hemoglobin 6.6 gm/dl (10.1-14.3); Mean Corpuscular HGB Conc 31 % (30-34); Mean Corpuscular Volume 82 fl (79-97); Platelet Count 322 K/mm3 (140-440); Red Blood Count 2.61 M/mm3 (3.65-5.03)
[2021-02-04 07:28] LABS: Red Cell Distribution Width 21.3 % (13.2-15.2)
[2021-02-04 07:44] LABS: Calcium 8.3 mg/dL (8.4-10.2)
--- NOTE | 2021-02-04 07:49 | Progress Note ---
Assessment and Plan ESRD on Hemodialysis Hypoglycemia Altered Mental status Diabetes Mellitus Deaf Plan: -no indication for HD today -Fluid restriction of 1 liter per day -Obtain daily weights -Monitor I/O's -Assess dialysis needs daily Subjective Date of service: 02/04/21 Principal diagnosis: Hypoglycemia, ESRD Interval history: Tolerated HD yesterday Objective - Vital Signs Vital signs: Vital Signs - 12hr 02/03/21 02/03/21 02/03/21 21:00 21:22 22:28 Temperature Pulse Rate Respiratory Rate Blood Pressure 151/72 Blood Pressure [Right] O2 Sat by Pulse 100 100 Oximetry 02/04/21 02/04/21 02/04/21 00:22 04:20 07:39 Temperature 98.2 F 98.1 F Pulse Rate 78 76 Respiratory 20 18 Rate Blood Pressure 157/56 Blood Pressure 161/80 [Right] O2 Sat by Pulse 99 100 Oximetry 02/04/21 07:42 Temperature Pulse Rate 76 Respiratory Rate Blood Pressure Blood Pressure [Right] O2 Sat by Pulse Oximetry - Lab 02/04/21 07:04 02/04/21 07:04 Most recent lab results Calcium 8.3 mg/dL (8.4-10.2) L 02/04/21 07:04 Medications & Allergies - Medications Allergies/Adverse Reactions: Allergies No Known Allergies Allergy (Verified 09/29/13 06:44) Home Medications: Home Medications Medication Instructions Recorded Confirmed Last Taken Type Lispro Insulin [HumaLOG] 0 unit SUB-Q ACHS units 03/30/19 04/07/20 Unknown Rx Aspirin EC [Halfprin EC] 81 mg PO QDAY #30 tablet 04/08/20 Unknown Rx Insulin Lispro [Humalog] 5 unit SUB-Q ACHS #1 vial 04/08/20 Unknown Rx amLODIPine 10 mg PO QDAY #30 tablet 04/08/20 Unknown Rx carvediloL [Coreg] 6.25 mg PO BID #60 tablet 04/08/20 Unknown Rx hydrALAZINE [Apresoline TAB] 100 mg PO Q8HR #90 tab 04/08/20 Unknown Rx oxyCODONE /ACETAMINOPHEN [Percocet 1 tab PO Q6H PRN tablet 04/08/20 Unknown Rx 5/325 mg] Active Medications: Generic Name Dose Route Start Last Admin Trade Name Freq PRN Reason Stop Dose Admin Acetaminophen 650 mg 02/01/21 21:31 Acetaminophen 325 Mg Tab PO Q4H PRN Pain MILD(1-3)/Fever >100.5/PALOMINO Amlodipine Besylate 10 mg 02/01/21 22:00 02/03/21 11:46 Amlodipine 10 Mg Tab PO Not Given QDAY [facility] Aspirin 81 mg 02/01/21 22:00 02/03/21 11:46 Aspirin Ec 81 Mg Tab PO Not Given QDAY [facility] Carvedilol 6.25 mg 02/01/21 22:00 02/03/21 16:45 Carvedilol 6.25 Mg Tab PO 6.25 mg BID@0800,1700 [facility] Administration Dextrose 0 ml 02/02/21 07:39 02/02/21 14:48 Dextrose 50% In Water (25gm) 50 Ml Syringe IV 15 ml ONCE PRN Administration Hypoglycemia Famotidine 20 mg 02/03/21 12:00 02/03/21 15:37 Famotidine 20 Mg Tab PO Not Given QAM [facility] Heparin Sodium (Porcine) 5,000 unit 02/01/21 22:00 02/03/21 21:26 Heparin 5,000 Unit/1 Ml Vial SUB-Q 5,000 unit Q12HR [facility] Administration Hydralazine HCl 100 mg 02/01/21 22:00 02/04/21 05:11 Hydralazine 100 Mg Tab PO 100 mg Q8HR [facility] Administration Hydromorphone HCl 0.5 mg 02/01/21 21:31 Hydromorphone 1 Mg/1 Ml Inj IV Q3H PRN Pain , Severe (7-10) Glucagon 2 mg/ Sodium Chloride 52 mls @ 0 mls/hr 02/01/21 22:00 02/02/21 01:12 IV 1 mls/hr TITR SHRUTI Administration As Directed Insulin Human Lispro 0 unit 02/01/21 22:00 02/04/21 04:39 Insulin Lispro 100 Unit/Ml SUB-Q Not Given Q3H [facility] Protocol Metoclopramide HCl 5 mg 02/01/21 21:31 Metoclopramide 10 Mg/2 Ml Inj IV Q6H PRN Nausea And Vomiting Ondansetron HCl 4 mg 02/01/21 21:31 Ondansetron 4 Mg/2 Ml Inj IV Q3H PRN Nausea And Vomiting Oxycodone/Acetaminophen 1 tab 02/01/21 21:30 02/02/21 23:36 Oxycodone /Acetaminophen 5-325mg Tab PO 1 tab Q6H PRN Administration Pain, Moderate (4-6) Sodium Chloride 10 ml 02/01/21 22:00 02/03/21 21:26 Sodium Chloride 0.9% 10 Ml Flush Syringe IV 10 ml BID SHRUTI Administration Sodium Chloride 10 ml 02/01/21 21:31 Sodium Chloride 0.9% 10 Ml Flush Syringe IV PRN PRN LINE FLUSH
[2021-02-04] MEDS ORDERED: SODIUM CHLORIDE 0.9% 500 ML 500 ML IV NR (09:00)
[2021-02-04] MEDS: FAMOTIDINE 20 MG/2 ML INJ IV SCH (09:04)
[2021-02-04] MEDS: FAMOTIDINE 20 MG TAB PO SCH (09:47)
[2021-02-04] MEDS: ASPIRIN EC 81 MG TAB PO SCH (09:47)
[2021-02-04] MEDS: carvediloL 6.25 MG TAB PO SCH ×2 (09:47→17:29)
[2021-02-04] MEDS: HEPARIN 5,000 UNIT/1 ML VIAL SUB-Q SCH ×2 (09:48→22:41)
[2021-02-04] MEDS: amLODIPine 10 MG TAB PO SCH (09:48)
--- NOTE | 2021-02-04 19:47 | Progress Note ---
Assessment and Plan Assessment and plan: 55-year-old -[place] female with history of hypertension, end-stage renal disease and insulin-dependent diabetes presents with presented with AMS and severe hypoglycemia. Apparently EMS was called 3 times for blood glucose levels ranging within 20 and 50. Patient was given D50 but did not improve. Hence patient was brought to the emergency room. In the emergency room patient had persistent hypoglycemia for which patient was admitted. A/P (1) Acute metabolic encephalopathy Current Visit: No Status: Acute Plan to address problem: Secondary to persistent hypoglycemia, improving Oral hypoglycemics to be discontinued permanently (2) Hypoglycemia, persistent Current Visit: Yes Status: Acute Plan to address problem: Patient IV D5/D10 along with D50 IV ampules and IV glucagon as necessary. Also octreotide was initiated depending on availability in the pharmacy No oral hypoglycemics at the time of discharge Very low insulin dosages because of end-stage renal disease Hemoglobin A1c less than 4.0 (3) ESRD (end stage renal disease) on T/T/S Current Visit: Yes Status: Chronic Plan to address problem: Nephrology consulted for possible hemodialysis (4) Hypertension Current Visit: Yes Status: Chronic Qualifiers: Hypertension type: primary hypertension Qualified Code(s): I10 - Essential (primary) hypertension Plan to address problem: Continue antihypertensives and adjust medications as necessary (5) anemia of CKD Hemoglobin dropped to 6.6 on 02/04 and PRBC x1 unit ordered. DVT prophylaxis Current Visit: Yes Status: Acute Plan to address problem: On heparin and GI prophylaxis Daily clinical course: 02/02: Still appears to lethargic, cont D5w, nephrology consulted for HD, follow clinically 02/03: s/p HD today, will d/c D5w and monitor BG. tolerating diet. If BG stable w/o D5W then d/c tomorrow am 02/04: Hypoglycemia still not resolved. Passing glucose 68. She is able to eat. Will discontinue nightly Humalog 5 units. Ordered PRBC x1 dose with hemodialysis today since hemoglobin dropped to 6.6. Possible discharge tomorrow. History Interval history: Patient is deaf, very hard of hearing. She looks comfortable and alert. No acute distress. Her brother is present at bedside. Blood glucose levels remain on low side, fasting blood glucose today 68. She is eating. Takes Humalog 5 units at at bedtime at home. A1c less than 4. Hemoglobin dropped to 6.6 and ordered PRBC x1 with dialysis today. Hospitalist Physical - Constitutional Vitals: Temp Pulse Resp BP Pulse Ox 98.8 F 66 16 173/61 98 02/04/21 19:36 02/04/21 19:36 02/04/21 19:36 02/04/21 19:36 02/04/21 19:36 General appearance: Present: no acute distress, well-nourished, other (Very hard of hearing. No acute distress.) - EENT Eyes: Present: PERRL, EOM intact ENT: hearing decreased - Neck Neck: Present: supple - Respiratory Respiratory effort: normal Respiratory: bilateral: CTA - Cardiovascular Rhythm: regular - Extremities Extremities: No edema - Abdominal General gastrointestinal: soft, non-tender, non-distended, normal bowel sounds - Integumentary Integumentary: Absent: rash - Psychiatric Psychiatric: appropriate mood/affect - Neurologic Neurologic: no focal deficits, moves all extremities Results - Labs CBC & Chem 7: 02/04/21 07:04 02/05/21 05:01 Labs: Laboratory Last Values WBC 5.4 K/mm3 (4.5-11.0) 02/04/21 07:04 RBC 2.61 M/mm3 (3.65-5.03) L 02/04/21 07:04 Hgb 6.6 gm/dl (10.1-14.3) L 02/04/21 07:04 Hct 21.4 % (30.3-42.9) L 02/04/21 07:04 MCV 82 fl (79-97) 02/04/21 07:04 MCH 26 pg (28-32) L 02/04/21 07:04 MCHC 31 % (30-34) 02/04/21 07:04 RDW 21.3 % (13.2-15.2) H 02/04/21 07:04 Plt Count 322 K/mm3 (140-440) 02/04/21 07:04 Lymph % (Auto) 14.9 % (13.4-35.0) 02/01/21 17:48 [place] % (Auto) 4.3 % (0.0-7.3) 02/01/21 17:48 Eos % (Auto) 0.9 % (0.0-4.3) 02/01/21 17:48 Baso % (Auto) 0.7 % (0.0-1.8) 02/01/21 17:48 Lymph # (Auto) 1.0 K/mm3 (1.2-5.4) L 02/01/21 17:48 [place] # (Auto) 0.3 K/mm3 (0.0-0.8) 02/01/21 17:48 Eos # (Auto) 0.1 K/mm3 (0.0-0.4) 02/01/21 17:48 Baso # (Auto) 0.0 K/mm3 (0.0-0.1) 02/01/21 17:48 Add Manual Diff Complete 02/02/21 07:19 Total Counted 100 02/02/21 07:19 Seg Neutrophils % 79.2 % (40.0-70.0) H 02/01/21 17:48 Seg Neuts % (Manual) 80.0 % (40.0-70.0) H 02/02/21 07:19 Lymphocytes % (Manual) 16.0 % (13.4-35.0) 02/02/21 07:19 Monocytes % (Manual) 3.0 % (0.0-7.3) 02/02/21 07:19 Eosinophils % (Manual) 1.0 % (0.0-4.3) 02/02/21 07:19 Nucleated RBC % Not Reportable 02/02/21 07:19 Seg Neutrophils # 5.1 K/mm3 (1.8-7.7) 02/01/21 17:48 Seg Neutrophils # Man 7.0 K/mm3 (1.8-7.7) 02/02/21 07:19 Band Neutrophils # 0.0 K/mm3 02/02/21 07:19 Lymphocytes # (Manual) 1.4 K/mm3 (1.2-5.4) 02/02/21 07:19 Abs React Lymphs (Man) 0.0 K/mm3 02/02/21 07:19 Monocytes # (Manual) 0.3 K/mm3 (0.0-0.8) 02/02/21 07:19 Eosinophils # (Manual) 0.1 K/mm3 (0.0-0.4) 02/02/21 07:19 Basophils # (Manual) 0.0 K/mm3 (0.0-0.1) 02/02/21 07:19 Metamyelocytes # 0.0 K/mm3 02/02/21 07:19 Myelocytes # 0.0 K/mm3 02/02/21 07:19 Promyelocytes # 0.0 K/mm3 02/02/21 07:19 Blast Cells # 0.0 K/mm3 02/02/21 07:19 WBC Morphology Not Reportable 02/02/21 07:19 Hypersegmented Neuts Not Reportable 02/02/21 07:19 Hyposegmented Neuts Not Reportable 02/02/21 07:19 Hypogranular Neuts Not Reportable 02/02/21 07:19 Smudge Cells Not Reportable 02/02/21 07:19 Toxic Granulation Not Reportable 02/02/21 07:19 Toxic Vacuolation Not Reportable 02/02/21 07:19 Dohle Bodies Not Reportable 02/02/21 07:19 Pelger-Huet Anomaly Not Reportable 02/02/21 07:19 Cosme Rods Not Reportable 02/02/21 07:19 Platelet Estimate Consistent w auto 02/02/21 07:19 Clumped Platelets Not Reportable 02/02/21 07:19 Plt Clumps, EDTA Not Reportable 02/02/21 07:19 Large Platelets Not Reportable 02/02/21 07:19 Giant Platelets Not Reportable 02/02/21 07:19 Platelet Satelliting Not Reportable 02/02/21 07:19 Plt Morphology Comment Not Reportable 02/02/21 07:19 RBC Morphology Not Reportable 02/02/21 07:19 Dimorphic RBCs Not Reportable 02/02/21 07:19 Polychromasia Not Reportable 02/02/21 07:19 Hypochromasia Not Reportable 02/02/21 07:19 Poikilocytosis 1+ 02/02/21 07:19 Anisocytosis 1+ 02/02/21 07:19 Microcytosis Not Reportable 02/02/21 07:19 Macrocytosis Not Reportable 02/02/21 07:19 Spherocytes Not Reportable 02/02/21 07:19 Pappenheimer Bodies Not Reportable 02/02/21 07:19 Sickle Cells Not Reportable 02/02/21 07:19 Target Cells Not Reportable 02/02/21 07:19 Tear Drop Cells Not Reportable 02/02/21 07:19 Ovalocytes Not Reportable 02/02/21 07:19 Helmet Cells Not Reportable 02/02/21 07:19 [place] Bodies Not Reportable 02/02/21 07:19 [place] Rings Not Reportable 02/02/21 07:19 [place] Cells Not Reportable 02/02/21 07:19 Bite Cells Not Reportable 02/02/21 07:19 Crenated Cell Not Reportable 02/02/21 07:19 Elliptocytes Not Reportable 02/02/21 07:19 Acanthocytes (Spur) Not Reportable 02/02/21 07:19 Rouleaux Not Reportable 02/02/21 07:19 Hemoglobin C Crystals Not Reportable 02/02/21 07:19 Schistocytes Few 02/02/21 07:19 Malaria parasites Not Reportable 02/02/21 07:19 [place] Bodies Not Reportable 02/02/21 07:19 Hem Pathologist Commnt No 02/02/21 07:19 Sodium 138 mmol/L (137-145) 02/04/21 07:04 Potassium 4.1 mmol/L (3.6-5.0) D 02/04/21 07:04 Chloride 99.7 mmol/L (98-107) 02/04/21 07:04 Carbon Dioxide 26 mmol/L (22-30) 02/04/21 07:04 Anion Gap 16 mmol/L 02/04/21 07:04 BUN 25 mg/dL (7-17) H 02/04/21 07:04 Creatinine 3.9 mg/dL (0.6-1.2) H 02/04/21 07:04 Estimated GFR 14 ml/min 02/04/21 07:04 BUN/Creatinine Ratio 6 % 02/04/21 07:04 Glucose 68 mg/dL (65-100) 02/04/21 07:04 POC Glucose 154 mg/dL (70-105) H 02/04/21 16:01 Hemoglobin A1c < 4.0 % (4-6) L 02/02/21 07:19 Calcium 8.3 mg/dL (8.4-10.2) L 02/04/21 07:04 Total Bilirubin 0.30 mg/dL (0.1-1.2) 02/02/21 07:19 Direct Bilirubin < 0.2 mg/dL (0-0.2) 02/01/21 17:48 Indirect Bilirubin 0.1 mg/dL 02/01/21 17:48 AST 9 units/L (5-40) 02/02/21 07:19 ALT < 5 units/L (7-56) L 02/02/21 07:19 Alkaline Phosphatase 95 units/L (35-129) 02/02/21 07:19 Total Protein 6.7 g/dL (6.3-8.2) 02/02/21 07:19 Albumin 2.6 g/dL (3.9-5) L 02/02/21 07:19 Albumin/Globulin Ratio 0.6 % 02/02/21 07:19 Hepatitis A IgM Ab Non-reactive (NonReactive) 02/03/21 10:15 Hep Bs Antigen Negative (Negative) 02/03/21 10:15 Hep B Core IgM Ab Non-reactive (NonReactive) 02/03/21 10:15 Hepatitis C Antibody Non-reactive (NonReactive) 02/03/21 10:15 Blood Type A POSITIVE 02/04/21 09:13 Antibody Screen Negative 02/04/21 09:13 Crossmatch See Detail 02/04/21 09:13 Active Medications - Current Medications Current Medications: Generic Name Dose Route Start Last Admin Trade Name Jermaineq PRN Reason Stop Dose Admin Acetaminophen 650 mg 02/01/21 21:31 Acetaminophen 325 Mg Tab PO Q4H PRN Pain MILD(1-3)/Fever >100.5/PALOMINO Amlodipine Besylate 10 mg 02/01/21 22:00 02/04/21 09:48 Amlodipine 10 Mg Tab PO 10 mg QDAY [facility] Administration Aspirin 81 mg 02/01/21 22:00 02/04/21 09:47 Aspirin Ec 81 Mg Tab PO 81 mg QDAY [facility] Administration Carvedilol 6.25 mg 02/01/21 22:00 02/04/21 17:29 Carvedilol 6.25 Mg Tab PO 6.25 mg BID@0800,1700 [facility] Administration Dextrose 0 ml 02/02/21 07:39 02/02/21 14:48 Dextrose 50% In Water (25gm) 50 Ml Syringe IV 15 ml ONCE PRN Administration Hypoglycemia Famotidine 20 mg 02/03/21 12:00 02/04/21 09:47 Famotidine 20 Mg Tab PO 20 mg QAM [facility] Administration Heparin Sodium (Porcine) 5,000 unit 02/01/21 22:00 02/04/21 09:48 Heparin 5,000 Unit/1 Ml Vial SUB-Q 5,000 unit Q12HR [facility] Administration Hydralazine HCl 100 mg 02/01/21 22:00 02/04/21 13:22 Hydralazine 100 Mg Tab PO 100 mg Q8HR [facility] Administration Glucagon 2 mg/ Sodium Chloride 52 mls @ 0 mls/hr 02/01/21 22:00 02/02/21 01:12 IV 1 mls/hr TITR SHRUTI Administration As Directed Sodium Chloride 500 mls @ 0 mls/hr 02/04/21 09:00 02/04/21 13:24 Nacl 0.9% 500 Ml IV 02/04/21 23:59 50 mls/hr ONCE NR Administration As Directed Insulin Human Lispro 0 unit 02/01/21 22:00 02/04/21 16:26 Insulin Lispro 100 Unit/Ml SUB-Q Not Given Q3H [facility] Protocol Metoclopramide HCl 5 mg 02/01/21 21:31 Metoclopramide 10 Mg/2 Ml Inj IV Q6H PRN Nausea And Vomiting Ondansetron HCl 4 mg 02/01/21 21:31 Ondansetron 4 Mg/2 Ml Inj IV Q3H PRN Nausea And Vomiting Sodium Chloride 10 ml 02/01/21 22:00 02/04/21 09:48 Sodium Chloride 0.9% 10 Ml Flush Syringe IV Not Given BID SHRUTI Sodium Chloride 10 ml 02/01/21 21:31 Sodium Chloride 0.9% 10 Ml Flush Syringe IV PRN PRN LINE FLUSH
[2021-02-04] MEDS ORDERED: hydrALAZINE 20 MG/1 ML INJ IV PRN (22:52)
[2021-02-05] MEDS: DEXTROSE 50% IN WATER (25GM) 50 ML SYRINGE IV PRN ×2 (02:11→06:09)
[2021-02-05 06:09] LABS: Albumin 2.9 g/dL (3.9-5); Blood Urea Nitrogen 35 mg/dL (7-17); Calcium 9.1 mg/dL (8.4-10.2); Hemolysis Index 3
[2021-02-05 06:13] LABS: Alanine Aminotransferase < 5 units/L (7-56); BUN/Creatinine Ratio 6
[2021-02-05] MEDS: hydrALAZINE 100 MG TAB PO SCH ×2 (07:34→14:20)
[2021-02-05] MEDS: INSULIN LISPRO 100 UNIT/ML SUB-Q SCH (07:48)
--- NOTE | 2021-02-05 10:45 | Progress Note ---
Assessment and Plan Assessment: ESRD on Hemodialysis Hypoglycemia Altered Mental status Diabetes Mellitus Deaf Plan: -Hemodialysis today for UF and clearance -Fluid restriction of 1 liter per day -Obtain daily weights -Monitor I/O's -Assess dialysis needs daily -Awaiting rehab placement -Plan of care reviewed by Dr. Freedman Subjective Date of service: 02/05/21 Principal diagnosis: Hypoglycemia, ESRD Interval history: Patient seen lying in bed. at bedside. Both are deaf. Objective - Vital Signs Vital signs: Vital Signs - 12hr 02/04/21 02/05/21 02/05/21 23:13 04:52 06:16 Temperature 98.6 F 98.0 F Pulse Rate 77 79 Respiratory 15 18 Rate Blood Pressure 155/62 181/71 181/71 Blood Pressure [Right] O2 Sat by Pulse 96 100 Oximetry 02/05/21 08:16 Temperature 98.4 F Pulse Rate 76 Respiratory 24 Rate Blood Pressure Blood Pressure 168/94 [Right] O2 Sat by Pulse 96 Oximetry - General Appearance General appearance: well-developed, appears stated age EENT: ATNC, other (Deaf) Neck: no JVD, supple Respiratory: Present: Decreased Breath Sounds Cardiology: S1S2 Gastrointestinal: normoactive bowel sounds Integumentary: warm and dry Neurologic: other (Awake and alert) Musculoskeletal: other (No edema) - Lab 02/04/21 07:04 02/05/21 05:01 Most recent lab results Calcium 9.1 mg/dL (8.4-10.2) 02/05/21 05:01 Medications & Allergies - Medications Allergies/Adverse Reactions: Allergies No Known Allergies Allergy (Verified 02/04/21 11:23) Home Medications: Home Medications Medication Instructions Recorded Confirmed Last Taken Type Cinacalcet [Sensipar] 30 mg PO QDAY 02/04/21 02/04/21 Unknown History Hydralazine HCl 50 mg PO TID 02/04/21 02/04/21 Unknown History Valsartan [Diovan] 80 mg PO QDAY 02/04/21 02/04/21 Unknown History Venlafaxine HCl [Effexor Xr] 37.5 mg PO QDAY 02/04/21 02/04/21 Unknown History carvediloL [Coreg] 25 mg PO BID 02/04/21 02/04/21 Unknown History glyBURIDE [Diabeta] 2.5 mg PO DAILY 02/04/21 02/04/21 Unknown History sevelamer HCL [Sevelamer HCl] 800 mg PO TID 02/04/21 02/04/21 Unknown History Active Medications: Generic Name Dose Route Start Last Admin Trade Name Jermaineq PRN Reason Stop Dose Admin Acetaminophen 650 mg 02/01/21 21:31 Acetaminophen 325 Mg Tab PO Q4H PRN Pain MILD(1-3)/Fever >100.5/PALOMINO Amlodipine Besylate 10 mg 02/01/21 22:00 02/04/21 09:48 Amlodipine 10 Mg Tab PO 10 mg QDAY SHRUTI Administration Aspirin 81 mg 02/01/21 22:00 02/04/21 09:47 Aspirin Ec 81 Mg Tab PO 81 mg QDAY SHRUTI Administration Carvedilol 6.25 mg 02/01/21 22:00 02/04/21 17:29 Carvedilol 6.25 Mg Tab PO 6.25 mg BID@0800,1700 SHRUTI Administration Dextrose 0 ml 02/02/21 07:39 02/05/21 06:09 Dextrose 50% In Water (25gm) 50 Ml Syringe IV 15 ml ONCE PRN Administration Hypoglycemia Famotidine 20 mg 02/03/21 12:00 02/04/21 09:47 Famotidine 20 Mg Tab PO 20 mg QAM SHRUTI Administration Heparin Sodium (Porcine) 5,000 unit 02/01/21 22:00 02/04/21 22:41 Heparin 5,000 Unit/1 Ml Vial SUB-Q Not Given Q12HR SHRUTI Hydralazine HCl 100 mg 02/01/21 22:00 02/05/21 07:34 Hydralazine 100 Mg Tab PO 100 mg Q8HR SHRUTI Administration Hydralazine HCl 10 mg 02/04/21 22:52 02/05/21 06:16 Hydralazine 20 Mg/1 Ml Inj IV 10 mg Q6H PRN Administration Hypertension Glucagon 2 mg/ Sodium Chloride 52 mls @ 0 mls/hr 02/01/21 22:00 02/02/21 01:12 IV 1 mls/hr TITR SHRUTI Administration As Directed Metoclopramide HCl 5 mg 02/01/21 21:31 Metoclopramide 10 Mg/2 Ml Inj IV Q6H PRN Nausea And Vomiting Ondansetron HCl 4 mg 02/01/21 21:31 Ondansetron 4 Mg/2 Ml Inj IV Q3H PRN Nausea And Vomiting Sodium Chloride 10 ml 02/01/21 22:00 02/04/21 22:41 Sodium Chloride 0.9% 10 Ml Flush Syringe IV Not Given BID SHRUTI Sodium Chloride 10 ml 02/01/21 21:31 Sodium Chloride 0.9% 10 Ml Flush Syringe IV PRN PRN LINE FLUSH
[2021-02-05] MEDS ORDERED: NON-FORMULARY EACH (Valsartan [Diovan] 80 MG Tablet) PO SCH (11:15)
[2021-02-05] MEDS ORDERED: VENLAFAXINE HCL 37.5 MG PO SCH (11:15)
[2021-02-05] MEDS ORDERED: carvediloL 12.5 MG TAB PO SCH (12:00)
[2021-02-05] MEDS ORDERED: CINACALCET 30 MG TAB PO SCH (12:00)
[2021-02-05] MEDS ORDERED: NON-FORMULARY EACH (Sevelamer Hcl [Sevelamer Hcl] 800 MG Tablet) PO SCH (14:00)
[2021-02-05] MEDS ORDERED: SEVELAMER CARBONATE 800 MG TAB PO SCH (14:00)
[2021-02-05] MEDS ORDERED: NON-FORMULARY EACH (Hydralazine Hcl [Hydralazine Hcl] 50 MG Tablet) PO SCH (14:00)
[2021-02-05] MEDS ORDERED: hydrALAZINE 25 MG TAB PO SCH (14:00)
[2021-02-05] MEDS: amLODIPine 10 MG TAB PO SCH (14:17)
[2021-02-05] MEDS: ASPIRIN EC 81 MG TAB PO SCH (14:17)
[2021-02-05] MEDS: FAMOTIDINE 20 MG TAB PO SCH (14:17)
[2021-02-05] MEDS: HEPARIN 5,000 UNIT/1 ML VIAL SUB-Q SCH (14:17)
[2021-02-05 17:03] VITALS: BP 171/59
--- NOTE | 2021-02-05 17:08 | Discharge Summary ---
Providers - Providers Date of Admission: 02/03/21 09:40 Attending physician: ALINE KEARNS MD 02/02/21 07:35 Consult to Physician [CONS] Routine Comment: Consulting Provider: ROCHELLE DIAZ Physician Instructions: Reason For Exam: ESRD 02/03/21 09:21 Physical Therapy Evaluation and Treat [CONS] Routine Comment: Reason For Exam: Debility Primary care physician: [facility] Hospitalization Condition: Stable Hospital course: Discharge instruction to patient: Do not take glyburide since her blood sugar dropping too low Renal and diabetic diet See your primary care physician in 1 week for follow-up Disposition: 01 HOME / SELF CARE / HOMELESS Exam - Constitutional Vitals: Temp Pulse Resp BP Pulse Ox 98.5 F 81 20 171/59 100 02/05/21 17:02 02/05/21 17:02 02/05/21 17:02 02/05/21 17:02 02/05/21 17:02 General appearance: Present: no acute distress - EENT Eyes: Present: PERRL ENT: hearing decreased - Neck Neck: Present: supple - Respiratory Respiratory effort: normal Respiratory: bilateral: CTA - Cardiovascular Rhythm: regular - Extremities Extremities: No edema - Abdominal General gastrointestinal: Present: soft, non-tender, non-distended - Integumentary Integumentary: Absent: rash - Neurologic Neurologic: moves all extremities Plan Activity: advance as tolerated Diet: diabetic, renal Special Instructions: restrict fluid intake to (1500 mL) Additional Instructions: Do not take glyburide since her blood sugar dropping too low. Renal and diabetic diet. See your primary care physician in 1 week for follow-up Follow up with: NATALIE KINCAID MD [Primary Care Provider] - 3-5 Days
[2021-02-06] MEDS ORDERED: VALSARTAN 40 MG TAB PO SCH (11:15)
[2021-02-06] MEDS ORDERED: VENLAFAXINE 37.5 MG TAB PO SCH (11:15)
== END 2021-02-05 20:00 | disposition home health service (06) | DRG 637 ==
LOC: ED 16:56 → 4A 18:44 → OBSVTOIN 02-03 09:40
PROVIDERS: ADMIT Internal Medicine; ATTEND Internal Medicine
PROC: 5A1D70Z Performance of Urinary Filtration, Intermittent, Less than 6 Hours Per Day (ICD-10-PCS; 2021-02-03)
PROC: 30233N1 Transfusion of Nonautologous Red Blood Cells into Peripheral Vein, Percutaneous Approach (ICD-10-PCS; principal; 2021-02-04)
PROC: 5A1D70Z Performance of Urinary Filtration, Intermittent, Less than 6 Hours Per Day (ICD-10-PCS; 2021-02-05)
DX: E11.649 Type 2 diabetes mellitus with hypoglycemia without coma (principal); G93.41 Metabolic encephalopathy; I12.0 Hypertensive chronic kidney disease with stage 5 chronic kidney disease or end stage renal disease; N18.6 End stage renal disease; E11.22 Type 2 diabetes mellitus with diabetic chronic kidney disease; D63.1 Anemia in chronic kidney disease; Z20.822 Contact with and (suspected) exposure to COVID-19
CPT/HCPCS: 36415; 80048; 80053; 80074; 80076; 82962; 83036; 85007; 85025; 85027; 86850; 86900; 86901; 86920; G0378; J3490; J0360; J1610; J1644; J2354; J7040; J7042; P9016

== ENCOUNTER 2021-02-24 11:25 | Observation (INO) | payer MEDICARE ==
[2021-02-24] MEDS ORDERED: ONDANSETRON 4 MG/2 ML INJ IV ONE (13:27)
[2021-02-24] MEDS ORDERED: MORPHINE 4 MG/1 ML INJ IV ONE (13:27)
--- NOTE | 2021-02-24 13:34 | Emergency Department Report ---
ED General Adult HPI - General Chief complaint: Pain General Stated complaint: [facility] Time Seen by Provider: 02/24/21 13:16 Source: family, EMS, old records reviewed Mode of arrival: Stretcher Limitations: Language Barrier, Physical Limitation - History of Present Illness Initial comments: 55-year-old female who is deaf with a history of end-stage renal disease on hemodialysis Wednesday, Wednesday, Wednesday, hypertension, and diabetes presents to the hospital with complaints of buttock pain, diarrhea, bilateral heel pain, and missing dialysis. As per daughter via telephone patient has not gone to dialysis in 3 weeks. He states that her mother is bedbound and is taking care by a home health aide and her boyfriend. For the last at least 2 weeks patient has had diarrhea intermittent stomach pains. She has not gone to dialysis dur ing this time. As per record record review patient was discharged here on February 05 after admission for recurrent hypoglycemia. Patient apparently complaining of pain to her buttock as well as bilateral heels with chronic heel ulcers. As per medical record patient appears to be scheduled for outpatient arterial study on February 27. Sister later at bedside Severity scale (0 -10): 8 - Related Data Home Medications Medication Instructions Recorded Confirmed Last Taken Cinacalcet [Sensipar] 30 mg PO QDAY 02/04/21 02/04/21 Unknown Hydralazine HCl 50 mg PO TID 02/04/21 02/04/21 Unknown Valsartan [Diovan] 80 mg PO QDAY 02/04/21 02/04/21 Unknown Venlafaxine HCl [Effexor Xr] 37.5 mg PO QDAY 02/04/21 02/04/21 Unknown carvediloL [Coreg] 25 mg PO BID 02/04/21 02/04/21 Unknown sevelamer HCL [Sevelamer HCl] 800 mg PO TID 02/04/21 02/04/21 Unknown Allergies Allergy/AdvReac Type Severity Reaction Status Date / Time No Known Allergies Allergy Verified 02/04/21 11:23 ED Review of Systems ROS: Stated complaint: [facility] Other details as noted in HPI Comment: All other systems reviewed and negative ED Past Medical Hx - Past Medical History Hx Hypertension: Yes Hx Heart Attack/AMI: No Hx Congestive Heart Failure: No Hx Diabetes: Yes Hx Deep Vein Thrombosis: No Hx Liver Disease: No Hx Renal Disease: Yes (dialysis m/w/f) Hx Kidney Stones: No Hx Asthma: No Hx COPD: No Additional medical history: Deaf - Surgical History Hx Coronary Stent: No Hx Pacemaker: No Hx Internal Defibrillator: No Additional Surgical History: right chest permacath - Social History Smoking Status: Unknown if ever smoked - Medications Home Medications: Home Medications Medication Instructions Recorded Confirmed Last Taken Type Cinacalcet [Sensipar] 30 mg PO QDAY 02/04/21 02/04/21 Unknown History Hydralazine HCl 50 mg PO TID 02/04/21 02/04/21 Unknown History Valsartan [Diovan] 80 mg PO QDAY 02/04/21 02/04/21 Unknown History Venlafaxine HCl [Effexor Xr] 37.5 mg PO QDAY 02/04/21 02/04/21 Unknown History carvediloL [Coreg] 25 mg PO BID 02/04/21 02/04/21 Unknown History sevelamer HCL [Sevelamer HCl] 800 mg PO TID 02/04/21 02/04/21 Unknown History ED Physical Exam - General Limitations: Language Barrier, Physical Limitation - Other Other exam information: General: Moderate distress secondary Head: Atraumatic Eyes: normal appearance ENT: Moist mucous membranes Neck: Normal appearance, no midline tenderness Chest: Clear to auscultation bilaterally CV: Regular rate and rhythm Abdomen: Soft, normal bowel sounds, nontender, nondistended, no rebound or guarding Buttock: Wearing a diaper with watery stool. Raw skin at the gluteal fold region without ulceration. Back: Normal inspection Extremity: Bilateral black heel ulcer Neuro: Alert , no facial asymmetry, speech clear, no gross motor sensory deficit Psych: Appropriate behavior Skin: No rash ED Course Vital Signs 02/24/21 02/24/21 02/24/21 13:02 14:38 14:46 Temperature 96.4 F L Pulse Rate 53 L Respiratory 17 Rate Blood Pressure 183/70 Blood Pressure 156/92 [Right] O2 Sat by Pulse 94 99 95 Oximetry 02/24/21 02/24/21 02/24/21 15:00 15:16 15:30 Temperature Pulse Rate 52 L 56 L 56 L Respiratory 16 14 12 Rate Blood Pressure 174/55 174/55 177/67 Blood Pressure [Right] O2 Sat by Pulse 95 Oximetry - Consultations Consultation #1: 02/24/21 14:[address] Guevara ED Medical Decision Making - Lab Data Result diagrams: 02/24/21 13:42 02/24/21 13:44 Lab Results 02/24/21 02/24/21 Range/Units 13:42 13:44 WBC 7.2 (4.5-11.0) K/mm3 RBC 2.64 L (3.65-5.03) M/mm3 Hgb 7.0 L (10.1-14.3) gm/dl Hct 22.2 L (30.3-42.9) % MCV 84 (79-97) fl MCH 26 L (28-32) pg MCHC 31 (30-34) % RDW 21.7 H (13.2-15.2) % Plt Count 294 (140-440) K/mm3 Lymph % (Auto) 19.7 (13.4-35.0) % Pine % (Auto) 5.2 (0.0-7.3) % Eos % (Auto) 1.1 (0.0-4.3) % Baso % (Auto) 0.7 (0.0-1.8) % Lymph # (Auto) 1.4 (1.2-5.4) K/mm3 Pine # (Auto) 0.4 (0.0-0.8) K/mm3 Eos # (Auto) 0.1 (0.0-0.4) K/mm3 Baso # (Auto) 0.1 (0.0-0.1) K/mm3 Seg Neutrophils % 73.3 H (40.0-70.0) % Seg Neutrophils # 5.3 (1.8-7.7) K/mm3 Sodium 135 L (137-145) mmol/L Potassium 8.6 H* (3.6-5.0) mmol/L Chloride 99.7 (98-107) mmol/L Carbon Dioxide 13 L (22-30) mmol/L Anion Gap 31 mmol/L BUN 139 H (7-17) mg/dL Creatinine 12.8 H (0.6-1.2) mg/dL Estimated GFR 4 ml/min BUN/Creatinine Ratio 11 % Glucose 98 (65-100) mg/dL Calcium 8.4 (8.4-10.2) mg/dL Total Bilirubin 0.40 (0.1-1.2) mg/dL Direct Bilirubin < 0.2 (0-0.2) mg/dL Indirect Bilirubin 0.2 mg/dL AST 22 (5-40) units/L ALT 38 (7-56) units/L Alkaline Phosphatase 253 H (35-129) units/L Total Protein 7.1 (6.3-8.2) g/dL Albumin 3.4 L (3.9-5) g/dL Albumin/Globulin Ratio 0.9 % - Medical Decision Making 55-year-old female presents to the hospital with hyperkalemia and uremia secondary to dialysis noncompliance. Patient not going to dialysis due to underlying diarrhea. Pain suspect that is when her medications causing the chronic diarrhea. Patient has a nontender abdominal exam without fever however, CT abdomen pelvis has been ordered to rule out acute pathology and C. difficile has been ordered as well. After results obtained from labs patient has severe hyperkalemia and needs stat pharmacologic and dialysis treatment prior to going to CT. Case was discussed with nephrology who will manage dialysis and hospitalist to admit. ekg, ct pending Critical Care Time: No Critical care attestation.: If time is entered above; I have spent that time in minutes in the direct care of this critically ill patient, excluding procedure time. ED Disposition Clinical Impression: Hyperkalemia, ESRD needing dialysis, Deaf, Uremia, Acute diarrhea, Chronic heel ulcer, Patient's noncompliance with renal dialysis, Chronic anemia Disposition: ADMITTED INPATIENT Is pt being admited?: Yes Condition: Stable Time of Disposition: 14:41
[2021-02-24 14:10] LABS: Basophils # (Auto) 0.1 K/mm3 (0.0-0.1); Basophils % (Auto) 0.7 % (0.0-1.8); Eosinophils # (Auto) 0.1 K/mm3 (0.0-0.4); Eosinophils % (Auto) 1.1 % (0.0-4.3); Hematocrit 22.2 % (30.3-42.9); Lymphocytes # (Auto) 1.4 K/mm3 (1.2-5.4); Lymphocytes % (Auto) 19.7 % (13.4-35.0); Mean Corpuscular HGB Conc 31 % (30-34); Mean Corpuscular Volume 84 fl (79-97); Monocytes # (Auto) 0.4 K/mm3 (0.0-0.8); Monocytes % (Auto) 5.2 % (0.0-7.3); Platelet Count 294 K/mm3 (140-440); Red Blood Count 2.64 M/mm3 (3.65-5.03)
--- NOTE | 2021-02-24 14:17 | XRay Report ---
CHEST 1 VIEW 02/24/2021 1:34 PM INDICATION / CLINICAL INFORMATION: missed dialysis. COMPARISON: 04/06/2020. FINDINGS: SUPPORT DEVICES: Left-sided dialysis catheter has its tip over the right atrium. HEART / MEDIASTINUM: Cardiomegaly. LUNGS / PLEURA: Diminished lung volumes with mild vascular congestion. No pneumothorax. ADDITIONAL FINDINGS: No significant additional findings. IMPRESSION: 1. Diminished lung volumes with mild vascular congestion. 2. Cardiomegaly. Signer Name: Rad Rowe MD Signed: 02/24/2021 2:13 PM Workstation Name: [id number]
[2021-02-24 14:19] LABS: Alanine Aminotransferase 38 units/L (7-56); Albumin 3.4 g/dL (3.9-5); Calcium 8.4 mg/dL (8.4-10.2); Hemolysis Index 0
[2021-02-24 14:20] LABS: Bilirubin,Direct < 0.2 mg/dL (0-0.2)
[2021-02-24 14:20] LABS: Red Cell Distribution Width 21.7 % (13.2-15.2)
[2021-02-24] MEDS ORDERED: SODIUM BICARB 8.4% 50 MEQ/50 ML SYRINGE IV ONE (14:26)
[2021-02-24] MEDS ORDERED: ALBUTEROL 2.5 MG/3 ML NEBU IH ONE (14:26)
[2021-02-24 14:27] LABS: BUN/Creatinine Ratio 11; Blood Urea Nitrogen 139 mg/dL (7-17)
[2021-02-24] MEDS ORDERED: INSULIN REGULAR, HUMAN 100 UNITS/1 ML IV ONE (14:27)
[2021-02-24] MEDS ORDERED: DEXTROSE 50% IN WATER (25GM) 50 ML VIAL IV ONE (14:27)
[2021-02-24] MEDS ORDERED: CALCIUM GLUCONATE 1,000 MG in SODIUM CHLORIDE 0.9% 100 ML IV ONE (14:28)
[2021-02-24] MEDS ORDERED: SODIUM POLYSTYRENE 15 GM/60 ML ORAL LIQD PO ONE (14:32)
--- NOTE | 2021-02-24 14:44 | Consultation ---
History of Present Illness - Reason for Consult Consult date: 02/24/21 end stage renal disease - History of Present Illness This is a 55 year old who has history of ESRD and is on hemodialysis at [facility] who presents to hospital with pain to buttock and heel, having diarrhea and abdominal pain. Patient missed dialysis x 3 weeks. Patient is deaf and mute. Patient also reports to be complaining of abdominal pain. She was recently discharged from this hospital on 02/05/21 for Hypoglycemia. On evaluation, patient was found to be Hyperkalemic with a potassium level of 8.6. We are being consulted for management of this patient's ESRD. Past History Past Medical History: diabetes, dialysis, ESRD, hypertension Past Surgical History: Other (dialysis access placement) Social history: no significant social history Family history: no significant family history Medications and Allergies Allergies Allergy/AdvReac Type Severity Reaction Status Date / Time No Known Allergies Allergy Verified 02/04/21 11:23 Home Medications Medication Instructions Recorded Confirmed Last Taken Type Cinacalcet [Sensipar] 30 mg PO QDAY 02/04/21 02/04/21 Unknown History Hydralazine HCl 50 mg PO TID 02/04/21 02/04/21 Unknown History Valsartan [Diovan] 80 mg PO QDAY 02/04/21 02/04/21 Unknown History Venlafaxine HCl [Effexor Xr] 37.5 mg PO QDAY 02/04/21 02/04/21 Unknown History carvediloL [Coreg] 25 mg PO BID 02/04/21 02/04/21 Unknown History sevelamer HCL [Sevelamer HCl] 800 mg PO TID 02/04/21 02/04/21 Unknown History Exam - Vital Signs Vital signs: Vital Signs Temp Pulse Resp BP Pulse Ox 96.4 F L 53 L 17 156/92 94 02/24/21 13:02 02/24/21 13:02 02/24/21 13:02 02/24/21 13:02 02/24/21 13:02 - Physical Exam Narrative exam: Patient off floor Results - Lab Results 02/24/21 13:42 02/24/21 13:44 Most recent lab results Calcium 8.4 mg/dL (8.4-10.2) 02/24/21 13:44 Assessment and Plan Assessment: ESRD on Hemodialysis Hyperkalemia Diabetes Mellitus Deaf Abdominal Pain Diarrhea Plan: -STAT Hemodialysis today for UF and clearance -Hyperkalemia- STAT HD today -Fluid restriction of 1 liter per day -Obtain daily weights -Monitor I/O's daily -Assess dialysis needs daily -Outpatient HD clinic [facility] -Plan of care reviewed by Dr. Freedman
--- NOTE | 2021-02-24 15:08 | History and Physical Report ---
History of Present Illness Chief complaint: She needs dialysis History of present illness: 55 YO Female with ESRD on HD(M,W,F), DM, HTN, Deaf/Mute, Chronic Sacral Decubitus Ulcers present on admission presents to ED for evaluation. Patient has diminished cognition at time of evaluation is unable to provide history. Patient history provided by EMS staff, ED staff, as well as patient daughter who was made available by telephone for interview. As per daughter the patient is bedbound and nonambulatory and requires 6/6 assistance to conduct activities of daily living. Patient was unable to undergo outpatient dialysis over the past 3 weeks. EMS was notified and upon arrival the patient was found to be in distre ss and subsequently transported to [facility] for further care and evaluation of the aforementioned symptoms. Patient seen and evaluated in the emergency department. All lab and imaging studies reviewed. Patient found to have end- stage renal disease in need of urgent dialysis. Nephrology team consulted in ED. No reports of fever, chills, chest pain, palpitation, productive cough, skin rash, recent contact, known exposure to COVID-19. Prior admission on 02/03/2021 reviewed. All medication listed at time of admission has been reconciled. Advanced care planning conducted in ED. Past History Past Medical History: diabetes, dialysis, ESRD, hypertension, other (See HPI) Past Surgical History: Other (dialysis access placement) Social history: no significant social history Family history: no significant family history Medications and Allergies Allergies Allergy/AdvReac Type Severity Reaction Status Date / Time No Known Allergies Allergy Verified 02/04/21 11:23 Home Medications Medication Instructions Recorded Confirmed Last Taken Type Cinacalcet [Sensipar] 30 mg PO QDAY 02/04/21 02/04/21 Unknown History Hydralazine HCl 50 mg PO TID 02/04/21 02/04/21 Unknown History Valsartan [Diovan] 80 mg PO QDAY 02/04/21 02/04/21 Unknown History Venlafaxine HCl [Effexor Xr] 37.5 mg PO QDAY 02/04/21 02/04/21 Unknown History carvediloL [Coreg] 25 mg PO BID 02/04/21 02/04/21 Unknown History sevelamer HCL [Sevelamer HCl] 800 mg PO TID 02/04/21 02/04/21 Unknown History Review of Systems ROS unobtainable: due to mental status Exam - Constitutional Vitals: Temp Pulse Resp BP Pulse Ox 96.4 F L 53 L 17 156/92 94 02/24/21 13:02 02/24/21 13:02 02/24/21 13:02 02/24/21 13:02 02/24/21 13:02 General appearance: Present: mild distress - EENT Eyes: Present: PERRL ENT: hearing intact, clear oral mucosa - Neck Neck: Present: supple, normal ROM - Respiratory Respiratory effort: normal Respiratory: bilateral: CTA - Cardiovascular Heart Sounds: Present: S1 & S2. Absent: rub, click - Extremities Extremities: pulses symmetrical, No edema Peripheral Pulses: within normal limits - Abdominal General gastrointestinal: Present: soft, non-tender, non-distended, normal bowel sounds Female genitourinary: Present: normal - Integumentary Integumentary: Present: clear, warm, dry - Musculoskeletal Musculoskeletal: generalized weakness - Psychiatric Psychiatric: no appropriate mood/affect, no intact judgment & insight, no memory intact - Neurologic Neurologic: CNII-XII intact, moves all extremities, no gait normal Results - Labs CBC & Chem 7: 02/24/21 13:42 02/24/21 13:44 Labs: Abnormal lab results 02/24/21 02/24/21 Range/Units 13:42 13:44 RBC 2.64 L (3.65-5.03) M/mm3 Hgb 7.0 L (10.1-14.3) gm/dl Hct 22.2 L (30.3-42.9) % MCH 26 L (28-32) pg RDW 21.7 H (13.2-15.2) % Seg Neutrophils % 73.3 H (40.0-70.0) % Sodium 135 L (137-145) mmol/L Potassium 8.6 H* (3.6-5.0) mmol/L Carbon Dioxide 13 L (22-30) mmol/L BUN 139 H (7-17) mg/dL Creatinine 12.8 H (0.6-1.2) mg/dL Alkaline Phosphatase 253 H (35-129) units/L Albumin 3.4 L (3.9-5) g/dL Assessment and Plan - Patient Problems (1) End stage renal disease Current Visit: Yes Status: Acute Plan to address problem: Strict I's/O, monitor urine output every shift, blood pressure control, monitor fluid balance, dialysis as per renal team, avoid nephrotoxic agents. (2) Hyperkalemia Current Visit: Yes Status: Acute Plan to address problem: Repeat BMP, dialysis as per renal team no EKG changes. Calcium gluconate, Kayexalate administered in the emergency department. (3) Noncompliance of patient with renal dialysis Current Visit: Yes Status: Acute Plan to address problem: Supportive care, patient family counseled regarding noncompliance with outpatient dialysis. (4) DVT prophylaxis Current Visit: Yes Status: Acute Plan to address problem: SCD to bilateral lower extremities while in bed (5) Advance care planning Current Visit: Yes Status: Acute Plan to address problem: Disease education conducted, care plan discussed, diagnoses discussed, patient is full code, patient daughter acknowledges understanding and agreement with care plan, +30 minutes.
[2021-02-24] MEDS ORDERED: ACETAMINOPHEN 325 MG TAB PO PRN (16:00)
[2021-02-24] MEDS ORDERED: ONDANSETRON 4 MG/2 ML INJ IV PRN (16:00)
[2021-02-24] MEDS ORDERED: ALBUTEROL 2.5 MG/3 ML NEBU IH PRN (16:00)
[2021-02-24] MEDS ORDERED: HYDROmorphone 1 MG/1 ML INJ IV PRN (16:00)
[2021-02-24] MEDS ORDERED: LORazepam 2 MG/ML VIAL IV ONE (16:03)
[2021-02-24] MEDS ORDERED: NON-FORMULARY EACH (Sevelamer Hcl [Sevelamer Hcl] 800 MG Tablet) PO SCH (20:00)
[2021-02-24] MEDS ORDERED: NON-FORMULARY EACH (Hydralazine Hcl [Hydralazine Hcl] 50 MG Tablet) PO SCH (20:00)
[2021-02-24] MEDS ORDERED: hydrALAZINE 20 MG/1 ML INJ IV STA (20:17)
[2021-02-24] MEDS ORDERED: carvediloL 12.5 MG TAB PO SCH (22:00)
[2021-02-24] MEDS: carvediloL 25 MG TAB PO SCH (23:45)
[2021-02-24] MEDS: hydrALAZINE 25 MG TAB PO SCH (23:45)
[2021-02-24] MEDS: oxyCODONE /ACETAMINOPHEN 5-325MG TAB PO PRN (23:46)
[2021-02-25] MEDS: MORPHINE 2 MG/1 ML INJ IV PRN ×3 (00:24→10:55)
--- NOTE | 2021-02-25 08:57 | Progress Note ---
Assessment and Plan ESRD on Hemodialysis Hyperkalemia Diabetes Mellitus Deaf Abdominal Pain Diarrhea Plan: -HD again today for clearance and volume removal -Fluid restriction of 1 liter per day -Obtain daily weights -Monitor I/O's daily -Assess dialysis needs daily -Outpatient HD clinic [facility] Subjective Date of service: 02/25/21 Principal diagnosis: ESRD Interval history: tolerated HD yesterday Objective - Vital Signs Vital signs: Vital Signs - 12hr 02/24/21 02/24/21 02/24/21 21:00 21:25 22:00 Temperature 98.0 F Pulse Rate 69 70 Respiratory 18 Rate Blood Pressure 191/81 188/86 Blood Pressure [Right] O2 Sat by Pulse 100 Oximetry O2 Sat by Pulse 94 Oximetry [ Throughout] 02/24/21 02/25/21 22:56 03:42 Temperature 98.0 F 98.1 F Pulse Rate 76 66 Respiratory 18 18 Rate Blood Pressure 193/70 Blood Pressure 148/58 [Right] O2 Sat by Pulse 100 97 Oximetry O2 Sat by Pulse Oximetry [ Throughout] - Lab 02/24/21 13:42 02/24/21 13:44 Most recent lab results Calcium 8.4 mg/dL (8.4-10.2) 02/24/21 13:44 Medications & Allergies - Medications Allergies/Adverse Reactions: Allergies No Known Allergies Allergy (Verified 02/04/21 11:23) Home Medications: Home Medications Medication Instructions Recorded Confirmed Last Taken Type Cinacalcet [Sensipar] 30 mg PO QDAY 02/04/21 02/04/21 Unknown History Hydralazine HCl 50 mg PO TID 02/04/21 02/04/21 Unknown History Valsartan [Diovan] 80 mg PO QDAY 02/04/21 02/04/21 Unknown History Venlafaxine HCl [Effexor Xr] 37.5 mg PO QDAY 02/04/21 02/04/21 Unknown History carvediloL [Coreg] 25 mg PO BID 02/04/21 02/04/21 Unknown History sevelamer HCL [Sevelamer HCl] 800 mg PO TID 02/04/21 02/04/21 Unknown History Active Medications: Generic Name Dose Route Start Last Admin Trade Name Freq PRN Reason Stop Dose Admin Acetaminophen 650 mg 02/24/21 16:00 Acetaminophen 325 Mg Tab PO Q4H PRN Pain MILD(1-3)/Fever >100.5/PALOMINO Albuterol 2.5 mg 02/24/21 16:00 Albuterol 2.5 Mg/3 Ml Nebu IH Q4HRT PRN Shortness Of Breath Carvedilol 25 mg 02/24/21 22:00 02/24/21 23:45 Carvedilol 25 Mg Tab PO 25 mg Q12HR SHRUTI Administration Cinacalcet 30 mg 02/25/21 10:00 Cinacalcet 30 Mg Tab PO QDAY SHRUTI Hydralazine HCl 50 mg 02/24/21 20:00 02/24/21 23:45 Hydralazine 25 Mg Tab PO 50 mg TID SHRUTI Administration Hydromorphone HCl 0.5 mg 02/24/21 16:00 Hydromorphone 1 Mg/1 Ml Inj IV Q23H PRN Pain , Severe (7-10) Morphine Sulfate 2 mg 02/25/21 00:05 02/25/21 05:29 Morphine 2 Mg/1 Ml Inj IV 2 mg Q4H PRN Administration Pain, Moderate (4-6) Ondansetron HCl 4 mg 02/24/21 16:00 Ondansetron 4 Mg/2 Ml Inj IV Q8H PRN Nausea And Vomiting Oxycodone/Acetaminophen 1 tab 02/24/21 16:00 02/24/21 23:46 Oxycodone /Acetaminophen 5-325mg Tab PO 1 tab Q12H PRN Administration Pain, Moderate (4-6) Sevelamer Carbonate 800 mg 02/24/21 16:30 Sevelamer Carbonate 800 Mg Tab PO AC SHRUTI Sodium Chloride 10 ml 02/24/21 22:00 02/24/21 23:47 Sodium Chloride 0.9% 10 Ml Flush Syringe IV 10 ml BID SHRUTI Administration Sodium Chloride 10 ml 02/24/21 16:00 Sodium Chloride 0.9% 10 Ml Flush Syringe IV PRN PRN LINE FLUSH Valsartan 80 mg 02/25/21 10:00 Valsartan 40 Mg Tab PO DAILY SHRUTI Venlafaxine HCl 37.5 mg 02/25/21 10:00 Venlafaxine 37.5 Mg Tab PO BID [facility]
[2021-02-25 08:58] LABS: Calcium 8.4 mg/dL (8.4-10.2)
[2021-02-25] MEDS ORDERED: NON-FORMULARY EACH (Valsartan [Diovan] 80 MG Tablet) PO SCH (10:00)
[2021-02-25] MEDS ORDERED: VENLAFAXINE HCL 37.5 MG PO SCH (10:00)
[2021-02-25] MEDS: VENLAFAXINE 37.5 MG TAB PO SCH ×2 (10:54→21:04)
[2021-02-25] MEDS: SEVELAMER CARBONATE 800 MG TAB PO SCH ×3 (10:54→17:34)
[2021-02-25] MEDS: VALSARTAN 40 MG TAB PO SCH (10:54)
[2021-02-25] MEDS: carvediloL 25 MG TAB PO SCH ×2 (10:54→21:08)
[2021-02-25] MEDS: CINACALCET 30 MG TAB PO SCH (10:55)
[2021-02-25] MEDS: hydrALAZINE 25 MG TAB PO SCH ×3 (10:57→21:08)
--- NOTE | 2021-02-25 11:46 | Progress Note ---
Assessment and Plan Assessment and plan: #ESRD on HD, noncompliant -HD on M, W, F schedule -Dialyzed emergently overnight -Nephrology following, assistance appreciated -Continue Renvela, Sensipar #Hyperkalemia -K 8.6 -> 5.4 after dialysis and medical management -will continue to monitor -plan for dialysis again today #Chronic sacral decubitus ulcer -wound care consulted #Normocytic anemia -Hgb 7 this admission, was 6.6 day of discharge -likely 2/2 to chronic disease -will transfuse for Hgb less than 7 #Hypertension -Continue Coreg, hydralazine and valsartan #Type 2 diabetes -not taking any medications outpatient -controlled on POC while inpatient -will not start any medications, will monitor with accuchecks #Discharge planning -patient lives at home and received HH -has not been to HD in over 3 weeks -spoke with patients daughter Delilah Cabrera ([phone]) who reports that the pa tient lives with her boyfriend and godson. The patient is able to make her own decisions and can read lips at baseline. She has been refusing to go to dialysis the last few weeks due to diarrhea and abdominal pain despite family telling her to go. Her boyfriend provides transportation to and from dialysis. The patient uses a wheelchair to get around. Disposition Plan: pending medical management History Interval history: Per nursing, patient did not sleep last night. Patient was sleep at beginning of my examination. She did not respond to commands, nor verbally but spontaneously opens her eyes. Hospitalist Physical - Physical exam Narrative exam: GENERAL: Well-developed well-nourished. Lying in bed, no acute distress. HEENT: Normocephalic. Atraumatic. CHEST/LUNGS: CTAB on room air HEART/CARDIOVASCULAR: RRR. No murmur, rubs or gallops appreciated. ABDOMEN: +BS. NT/ND. NEURO: No focal motor deficit. MUSCULOSKELETAL: No joint effusion EXTREMITIES: No cyanosis, clubbing or edema. PSYCH: Alert. - Constitutional Vitals: Temp Pulse Resp BP Pulse Ox 99.0 F 71 18 163/57 95 02/25/21 10:23 02/25/21 10:23 02/25/21 03:42 02/25/21 10:23 02/25/21 10:23 General appearance: Present: mild distress Results - Labs CBC & Chem 7: 02/24/21 13:42 02/25/21 08:40 Labs: Laboratory Last Values WBC 7.2 K/mm3 (4.5-11.0) 02/24/21 13:42 RBC 2.64 M/mm3 (3.65-5.03) L 02/24/21 13:42 Hgb 7.0 gm/dl (10.1-14.3) L 02/24/21 13:42 Hct 22.2 % (30.3-42.9) L 02/24/21 13:42 MCV 84 fl (79-97) 02/24/21 13:42 MCH 26 pg (28-32) L 02/24/21 13:42 MCHC 31 % (30-34) 02/24/21 13:42 RDW 21.7 % (13.2-15.2) H 02/24/21 13:42 Plt Count 294 K/mm3 (140-440) 02/24/21 13:42 Lymph % (Auto) 19.7 % (13.4-35.0) 02/24/21 13:42 Rock % (Auto) 5.2 % (0.0-7.3) 02/24/21 13:42 Eos % (Auto) 1.1 % (0.0-4.3) 02/24/21 13:42 Baso % (Auto) 0.7 % (0.0-1.8) 02/24/21 13:42 Lymph # (Auto) 1.4 K/mm3 (1.2-5.4) 02/24/21 13:42 Rock # (Auto) 0.4 K/mm3 (0.0-0.8) 02/24/21 13:42 Eos # (Auto) 0.1 K/mm3 (0.0-0.4) 02/24/21 13:42 Baso # (Auto) 0.1 K/mm3 (0.0-0.1) 02/24/21 13:42 Seg Neutrophils % 73.3 % (40.0-70.0) H 02/24/21 13:42 Seg Neutrophils # 5.3 K/mm3 (1.8-7.7) 02/24/21 13:42 Sodium 139 mmol/L (137-145) 02/25/21 08:40 Potassium 5.4 mmol/L (3.6-5.0) H D 02/25/21 08:40 Chloride 99.2 mmol/L (98-107) 02/25/21 08:40 Carbon Dioxide 25 mmol/L (22-30) D 02/25/21 08:40 Anion Gap 20 mmol/L 02/25/21 08:40 BUN 55 mg/dL (7-17) H 02/25/21 08:40 Creatinine 6.3 mg/dL (0.6-1.2) H D 02/25/21 08:40 Estimated GFR 8 ml/min 02/25/21 08:40 BUN/Creatinine Ratio 9 % 02/25/21 08:40 Glucose 81 mg/dL (65-100) 02/25/21 08:40 POC Glucose 124 mg/dL (70-105) H 02/25/21 11:25 Calcium 8.4 mg/dL (8.4-10.2) 02/25/21 08:40 Total Bilirubin 0.40 mg/dL (0.1-1.2) 02/24/21 13:44 Direct Bilirubin < 0.2 mg/dL (0-0.2) 02/24/21 13:44 Indirect Bilirubin 0.2 mg/dL 02/24/21 13:44 AST 22 units/L (5-40) 02/24/21 13:44 ALT 38 units/L (7-56) 02/24/21 13:44 Alkaline Phosphatase 253 units/L (35-129) H 02/24/21 13:44 Total Protein 7.1 g/dL (6.3-8.2) 02/24/21 13:44 Albumin 3.4 g/dL (3.9-5) L 02/24/21 13:44 Albumin/Globulin Ratio 0.9 % 02/24/21 13:44 Pandya/IV: Voiding Method Incontinent Active Medications - Current Medications Current Medications: Generic Name Dose Route Start Last Admin Trade Name Freq PRN Reason Stop Dose Admin Acetaminophen 650 mg 02/24/21 16:00 Acetaminophen 325 Mg Tab PO Q4H PRN Pain MILD(1-3)/Fever >100.5/PALOMINO Albuterol 2.5 mg 02/24/21 16:00 Albuterol 2.5 Mg/3 Ml Nebu IH Q4HRT PRN Shortness Of Breath Carvedilol 25 mg 02/24/21 22:00 02/25/21 10:54 Carvedilol 25 Mg Tab PO 25 mg Q12HR SHRUTI Administration Cinacalcet 30 mg 02/25/21 10:00 02/25/21 10:55 Cinacalcet 30 Mg Tab PO 30 mg QDAY SHRUTI Administration Hydralazine HCl 50 mg 02/24/21 20:00 02/25/21 10:57 Hydralazine 25 Mg Tab PO 50 mg TID SHRUTI Administration Hydromorphone HCl 0.5 mg 02/24/21 16:00 Hydromorphone 1 Mg/1 Ml Inj IV Q23H PRN Pain , Severe (7-10) Morphine Sulfate 2 mg 02/25/21 00:05 02/25/21 10:55 Morphine 2 Mg/1 Ml Inj IV 2 mg Q4H PRN Administration Pain, Moderate (4-6) Ondansetron HCl 4 mg 02/24/21 16:00 Ondansetron 4 Mg/2 Ml Inj IV Q8H PRN Nausea And Vomiting Oxycodone/Acetaminophen 1 tab 02/24/21 16:00 02/24/21 23:46 Oxycodone /Acetaminophen 5-325mg Tab PO 1 tab Q12H PRN Administration Pain, Moderate (4-6) Sevelamer Carbonate 800 mg 02/24/21 16:30 02/25/21 10:54 Sevelamer Carbonate 800 Mg Tab PO 800 mg AC SHRUTI Administration Sodium Chloride 10 ml 02/24/21 22:00 02/25/21 11:17 Sodium Chloride 0.9% 10 Ml Flush Syringe IV 10 ml BID SHRUTI Administration Sodium Chloride 10 ml 02/24/21 16:00 Sodium Chloride 0.9% 10 Ml Flush Syringe IV PRN PRN LINE FLUSH Valsartan 80 mg 02/25/21 10:00 02/25/21 10:54 Valsartan 40 Mg Tab PO 80 mg DAILY SHRUTI Administration Venlafaxine HCl 37.5 mg 02/25/21 10:00 02/25/21 10:54 Venlafaxine 37.5 Mg Tab PO 37.5 mg BID SHRUTI Administration
--- NOTE | 2021-02-25 12:37 | Cat Scan Report ---
CT ABDOMEN AND PELVIS WITHOUT CONTRAST INDICATION / CLINICAL INFORMATION: abd pain and diarrhea. TECHNIQUE: Axial CT images were obtained through the abdomen and pelvis without IV contrast. All CT scans at this location are performed using CT dose reduction for ALARA by means of automated exposure control. COMPARISON: None available. FINDINGS: LOWER CHEST: Small pericardial effusion. Small left pleural effusion and trace right pleural effusion with atelectatic changes. LIVER: No significant abnormality. GALLBLADDER: No significant abnormality. BILE DUCTS: No significant abnormality. PANCREAS: No significant abnormality. SPLEEN: No significant abnormality. ADRENALS: No significant abnormality. RIGHT KIDNEY / URETER: Atrophy without hydronephrosis. LEFT KIDNEY / URETER: Atrophy without hydronephrosis. STOMACH / SMALL BOWEL: No significant abnormality. COLON: No significant abnormality. APPENDIX: No significant abnormality. PERITONEUM: Small volume ascites. No free air. No fluid collection. LYMPH NODES: No significant adenopathy. AORTA / ARTERIES: Severe atherosclerotic calcification without acute abnormality. IVC / VEINS: No significant abnormality. URINARY BLADDER: No significant abnormality. REPRODUCTIVE ORGANS: Uterus is absent. No significant adnexal abnormality. ADDITIONAL FINDINGS: Anasarca. SKELETAL SYSTEM: Severe irregularity/resorptive change at the pubic symphysis with possible fracturin g. Severe erosive change of the sacroiliac joint on the right. IMPRESSION: 1. No acute abnormality to account for patient's abdominal pain and diarrhea. 2. Small volume ascites and anasarca, likely secondary to third spacing. 3. Severe irregularity and erosive changes of the right SI joint and pubic symphysis, possibly second brittny to hyperparathyroidism. Recommend clinical correlation. 4. Small pericardial effusion and bilateral pericardial effusions. Signer Name: Daniel Caruso MD Signed: 02/25/2021 12:33 PM Workstation Name: [email or web address]
[2021-02-25] MEDS: oxyCODONE /ACETAMINOPHEN 5-325MG TAB PO PRN (21:09)
[2021-02-25] MEDS ORDERED: QUEtiapine 25 MG TAB PO SCH (22:00)
[2021-02-26 06:11] LABS: Calcium 8.2 mg/dL (8.4-10.2)
--- NOTE | 2021-02-26 07:27 | Discharge Summary ---
Providers - Providers Date of Admission: 02/24/21 15:20 Date of discharge: 02/26/21 Attending physician: LIUDMILA APARICIO MD 02/24/21 14:32 Consult to Physician [CONS] Urgent Comment: Consulting Provider: PERICO SALVADOR Physician Instructions: Reason For Exam: esrd noncompliant K 8.6 02/25/21 07:47 Consult to Case Management [CONS] Routine Services Needed at Discharge: Other Notified:: CM Additional Physician Instructions: Dialysis transportation 02/25/21 07:48 Physical Therapy Evaluation and Treat [CONS] Routine Comment: Reason For Exam: debility 02/25/21 11:46 Consult to Wound/ET Nurse [CONS] Routine Reason For Exam: wound eval Primary care physician: [facility] Hospitalization Reason for admission: Hyperkalemia Condition: Stable Hospital course: 55-year-old female with history of ESRD, diabetes, hypertension and deafness who presented to the emergency department secondary to altered mental status. Of note patient was reported to have missed 3 weeks of dialysis. Her potassium was 8.6. She was admitted for emergent hemodialysis. After dialysis potassium improved. Patient was evaluated by physical therapy and was referred for rehabilitation. Patient was discharged home in care of family with plans for placement to be completed outpatient. Disposition: 01 HOME / SELF CARE / HOMELESS Final Discharge Diagnosis (Prints w/discharge instructions): ESRD with HD noncompliance. Hyperkalemia. Chronic sacral decubitus ulcers. Normocytic anemia. Hypertension Time spent for discharge: 30 minutes Core Measure Documentation - Palliative Care Palliative Care/ Comfort Measures: Not Applicable - Core Measures Any of the following diagnoses?: none Exam - Physical Exam Narrative exam: GENERAL: Well-developed well-nourished. Lying in bed, no acute distress. HEENT: Normocephalic. Atraumatic. CHEST/LUNGS: CTAB on room air HEART/CARDIOVASCULAR: RRR. No murmur, rubs or gallops appreciated. ABDOMEN: +BS. NT/ND. NEURO: No focal motor deficit. MUSCULOSKELETAL: No joint effusion EXTREMITIES: No cyanosis, clubbing or edema. PSYCH: Alert. - Constitutional Vitals: Temp Pulse Resp BP Pulse Ox 98.3 F 74 18 179/69 98 02/25/21 17:17 02/25/21 21:08 02/25/21 17:17 02/25/21 21:08 02/26/21 00:56 Plan Care Plan Goals: Follow-up with primary care provider earliest convenience. Please start going to dialysis as scheduled. Assessment: Patient admitted for 3 weeks of missed dialysis and diarrhea. Potassium was elevated and patient was taken emergently for dialysis. Her potassium improved as well as her diarrhea. Once stable she was discharged back home. Follow up with: PRIMARY CARE, [Primary Care Provider] - 3-5 Days Prescriptions: hydrALAZINE [Apresoline TAB] 50 mg PO TID 30 Days #90 tablet Cinacalcet [Sensipar] 30 mg PO QDAY 30 Days #30 tablet
[2021-02-26] MEDS: SEVELAMER CARBONATE 800 MG TAB PO SCH ×3 (07:30→16:04)
[2021-02-26] MEDS: VENLAFAXINE 37.5 MG TAB PO SCH (10:53)
[2021-02-26] MEDS: CINACALCET 30 MG TAB PO SCH (10:53)
[2021-02-26] MEDS: VALSARTAN 40 MG TAB PO SCH (10:53)
[2021-02-26] MEDS: carvediloL 25 MG TAB PO SCH (10:53)
[2021-02-26] MEDS: hydrALAZINE 25 MG TAB PO SCH ×2 (10:55→16:04)
[2021-02-26] MEDS: oxyCODONE /ACETAMINOPHEN 5-325MG TAB PO PRN (11:39)
--- NOTE | 2021-02-26 13:30 | Progress Note ---
Assessment and Plan Assessment and Plan ESRD on Hemodialysis Hyperkalemia Diabetes Mellitus type 2 Deaf Abdominal Pain Diarrhea Plan: -S/p HD yesterday for UF and clearance, UF removed 2L -No acute indication for HD today -HD tomorrow for UF and clearance -Fluid restriction of 1 liter per day -Outpatient HD clinic [facility] -Renal plan reviewed by Dr Freedman Subjective Date of service: 02/26/21 Principal diagnosis: ESRD Interval history: Pt seen in bed eating lunch, pt awake, deaf, sister at beside states plan is for pt to go to Rehab now, updated on renal plan Objective - Vital Signs Vital signs: Vital Signs - 12hr 02/26/21 02/26/21 10:53 10:55 Pulse Rate 72 72 Blood Pressure 173/61 173/61 - General Appearance General appearance: well-developed EENT: ATNC Neck: no JVD Respiratory: Present: Decreased Breath Sounds Cardiology: regular, S1S2, other (ACCESS: Left Perm Catheter intact) Gastrointestinal: normoactive bowel sounds Integumentary: warm and dry Neurologic: other (awake, nonverbal) - Lab 02/24/21 13:42 02/26/21 05:12 Most recent lab results Calcium 8.2 mg/dL (8.4-10.2) L 02/26/21 05:12 Medications & Allergies - Medications Allergies/Adverse Reactions: Allergies No Known Allergies Allergy (Verified 02/04/21 11:23) Home Medications: Home Medications Medication Instructions Recorded Confirmed Last Taken Type Hydralazine HCl 50 mg PO TID 02/04/21 02/04/21 Unknown History Valsartan [Diovan] 80 mg PO QDAY 02/04/21 02/04/21 Unknown History Venlafaxine HCl [Effexor Xr] 37.5 mg PO QDAY 02/04/21 02/04/21 Unknown History carvediloL [Coreg] 25 mg PO BID 02/04/21 02/04/21 Unknown History sevelamer HCL [Sevelamer HCl] 800 mg PO TID 02/04/21 02/04/21 Unknown History Cinacalcet [Sensipar] 30 mg PO QDAY 30 Days #30 tablet 02/26/21 Unknown Rx Sevelamer Carbonate [Renvela] 800 mg PO AC tablet 02/26/21 Unknown Rx Valsartan [Diovan] 80 mg PO DAILY tablet 02/26/21 Unknown Rx Venlafaxine [Effexor 37.5mg tab] 37.5 mg PO BID tablet 02/26/21 Unknown Rx carvediloL [Coreg] 25 mg PO Q12HR tablet 02/26/21 Unknown Rx hydrALAZINE [Apresoline TAB] 50 mg PO TID 30 Days #90 tablet 02/26/21 Unknown Rx Active Medications: Generic Name Dose Route Start Last Admin Trade Name Freq PRN Reason Stop Dose Admin Acetaminophen 650 mg 02/24/21 16:00 Acetaminophen 325 Mg Tab PO Q4H PRN Pain MILD(1-3)/Fever >100.5/PALOMINO Albuterol 2.5 mg 02/24/21 16:00 Albuterol 2.5 Mg/3 Ml Nebu IH Q4HRT PRN Shortness Of Breath Carvedilol 25 mg 02/24/21 22:00 02/26/21 10:53 Carvedilol 25 Mg Tab PO 25 mg Q12HR SHRUTI Administration Cinacalcet 30 mg 02/25/21 10:00 02/26/21 10:53 Cinacalcet 30 Mg Tab PO 30 mg QDAY SHRUTI Administration Hydralazine HCl 50 mg 02/24/21 20:00 02/26/21 10:55 Hydralazine 25 Mg Tab PO 50 mg TID SHRUTI Administration Hydromorphone HCl 0.5 mg 02/24/21 16:00 Hydromorphone 1 Mg/1 Ml Inj IV Q23H PRN Pain , Severe (7-10) Morphine Sulfate 2 mg 02/25/21 00:05 02/25/21 10:55 Morphine 2 Mg/1 Ml Inj IV 2 mg Q4H PRN Administration Pain, Moderate (4-6) Ondansetron HCl 4 mg 02/24/21 16:00 Ondansetron 4 Mg/2 Ml Inj IV Q8H PRN Nausea And Vomiting Oxycodone/Acetaminophen 1 tab 02/24/21 16:00 02/26/21 11:39 Oxycodone /Acetaminophen 5-325mg Tab PO 1 tab Q12H PRN Administration Pain, Moderate (4-6) Quetiapine Fumarate 25 mg 02/25/21 22:00 02/25/21 21:09 Quetiapine 25 Mg Tab PO 25 mg QHS SHRUTI Administration Sevelamer Carbonate 800 mg 02/24/21 16:30 02/26/21 11:38 Sevelamer Carbonate 800 Mg Tab PO 800 mg AC SHRUTI Administration Sodium Chloride 10 ml 02/24/21 22:00 02/25/21 21:10 Sodium Chloride 0.9% 10 Ml Flush Syringe IV 10 ml BID SHRUTI Administration Sodium Chloride 10 ml 02/24/21 16:00 Sodium Chloride 0.9% 10 Ml Flush Syringe IV PRN PRN LINE FLUSH Valsartan 80 mg 02/25/21 10:00 02/26/21 10:53 Valsartan 40 Mg Tab PO 80 mg DAILY SHRUTI Administration Venlafaxine HCl 37.5 mg 02/25/21 10:00 02/26/21 10:53 Venlafaxine 37.5 Mg Tab PO 37.5 mg BID SHRUTI Administration
[2021-02-26 16:09] VITALS: BP 163/60
--- NOTE | 2021-02-27 10:09 | Electrocardiograph Report ---
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
--- NOTE | 2021-02-27 10:14 | Electrocardiograph Report ---
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
== END 2021-02-26 17:30 | disposition home or self-care (01) ==
LOC: ED 11:25 → 3A 15:20
PROVIDERS: ADMIT Internal Medicine; ATTEND Student in an Organized Health Care Education/Training Program
DX: I12.0 Hypertensive chronic kidney disease with stage 5 chronic kidney disease or end stage renal disease (principal); N18.6 End stage renal disease; E87.5 Hyperkalemia; E11.22 Type 2 diabetes mellitus with diabetic chronic kidney disease; D63.1 Anemia in chronic kidney disease; L89.109 Pressure ulcer of unspecified part of back, unspecified stage; H91.90 Unspecified hearing loss, unspecified ear; R19.7 Diarrhea, unspecified; R29.818 Other symptoms and signs involving the nervous system; R10.9 Unspecified abdominal pain; Z91.14 Patient's other noncompliance with medication regimen; Z99.2 Dependence on renal dialysis; Z79.899 Other long term (current) drug therapy; Z98.890 Other specified postprocedural states
CPT/HCPCS: 36415; 71045; 74176; 80048; 80076; 82962; 85025; 93005; 96374; 96375; 96376; 97162; 99285; G0257; G0378; J0360; J0610; J2060; J2270; J2405; J3490; Q9967; J1815

== ENCOUNTER 2021-03-03 10:45 | Outpatient (CLI) | payer MEDICARE ==
[2021-03-03] MEDS ORDERED: LIDOCAINE (4%) 40 MG/ML TOPICAL SOLN 50 ML BOTTLE TP ONE (13:51)
== END 2021-03-03 10:46 | disposition home or self-care (01) ==
LOC: WOUND 10:45
PROVIDERS: ATTEND Surgery
DX: E11.621 Type 2 diabetes mellitus with foot ulcer (principal); L89.610 Pressure ulcer of right heel, unstageable; L97.411 Non-pressure chronic ulcer of right heel and midfoot limited to breakdown of skin; L89.620 Pressure ulcer of left heel, unstageable; L97.422 Non-pressure chronic ulcer of left heel and midfoot with fat layer exposed; E11.22 Type 2 diabetes mellitus with diabetic chronic kidney disease; N18.6 End stage renal disease; Z99.2 Dependence on renal dialysis; Z87.891 Personal history of nicotine dependence

== ENCOUNTER 2021-03-23 15:43 | Emergency (ER) | payer MEDICARE ==
[2021-03-23] MEDS ORDERED: ONDANSETRON 4 MG/2 ML INJ IV ONE (16:07)
--- NOTE | 2021-03-23 16:08 | Event Note ---
ED Screening Note Date of service: 03/23/21 Time: 16:06 ED Screening Note: 55-year-old female who is deaf and has a past medical history of end-stage renal disease currently on hemodialysis Tuesdays and Saturdays, as well as hypertension diabetes presents to the ER with her daughter with complaints of abdominal pain, nausea, diarrhea and bloating. Patient states that symptoms started 3 days ago. She denies any mucus, melena or hematochezia. Patient states that she last had dialysis Wednesday, missed and Saturdays dialysis. Daughter states that she has noticed patient has had increased swelling to her lower legs. Patient denies any chest pain or shortness of breath. This initial assessment/diagnostic orders/clinical plan/treatment(s) is/are subject to change based on patients health status, clinical progression and re- assessment by fellow clinical providers in the ED. Further treatment and workup at subsequent clinical providers discretion. Patient/guardian urged not to elope from the ED as their condition may be serious if not clinically assessed and managed. Initial orders include: Labs
[2021-03-23 16:58] LABS: Basophils # (Auto) 0.1 K/mm3 (0.0-0.1); Basophils % (Auto) 0.7 % (0.0-1.8); Eosinophils # (Auto) 0.1 K/mm3 (0.0-0.4); Eosinophils % (Auto) 0.7 % (0.0-4.3); Hematocrit 21.8 % (30.3-42.9); Hemoglobin 6.8 gm/dl (10.1-14.3); Lymphocytes # (Auto) 1.8 K/mm3 (1.2-5.4); Lymphocytes % (Auto) 23.3 % (13.4-35.0); Mean Corpuscular HGB Conc 31 % (30-34); Mean Corpuscular Volume 88 fl (79-97); Monocytes # (Auto) 0.4 K/mm3 (0.0-0.8); Monocytes % (Auto) 4.8 % (0.0-7.3); Platelet Count 245 K/mm3 (140-440); Red Blood Count 2.47 M/mm3 (3.65-5.03)
[2021-03-23] MEDS ORDERED: MORPHINE 4 MG/1 ML INJ IV ONE (16:58)
--- NOTE | 2021-03-23 17:13 | Emergency Department Report ---
ED Abdominal Pain HPI - General Chief Complaint: Abdominal Pain Stated Complaint: LEG SWOLLEN Time Seen by Provider: 03/23/21 16:25 Source: patient Mode of arrival: Ambulatory Limitations: Language Barrier - History of Present Illness Initial Comments: 55-year-old female who is deaf and has a past medical history of end-stage renal disease currently on hemodialysis Tuesdays and Saturdays, as well as hypertension diabetes presents to the ER with her daughter with complaints of abdominal pain, nausea, diarrhea and bloating. Patient states that symptoms started 3 days ago. She denies any mucus, melena or hematochezia. Patient states that she last had dialysis Wednesday, missed and Saturdays dialysis. Daughter states that she has noticed patient has had increased swelling to her lower legs. Patient denies any chest pain or shortness of breath. MD Complaint: abdominal pain -: Gradual Location: diffuse Severity scale (0 -10): 2 Quality: dull - Related Data Home Medications Medication Instructions Recorded Confirmed Last Taken Hydralazine HCl 50 mg PO TID 02/04/21 02/04/21 Unknown Valsartan [Diovan] 80 mg PO QDAY 02/04/21 02/04/21 Unknown Venlafaxine HCl [Effexor Xr] 37.5 mg PO QDAY 02/04/21 02/04/21 Unknown carvediloL [Coreg] 25 mg PO BID 02/04/21 02/04/21 Unknown sevelamer HCL [Sevelamer HCl] 800 mg PO TID 02/04/21 02/04/21 Unknown Previous Rx's Medication Instructions Recorded Last Taken Type Cinacalcet [Sensipar] 30 mg PO QDAY 30 Days #30 tablet 02/26/21 Unknown Rx Sevelamer Carbonate [Renvela] 800 mg PO AC tablet 02/26/21 Unknown Rx Valsartan [Diovan] 80 mg PO DAILY tablet 02/26/21 Unknown Rx Venlafaxine [Effexor 37.5mg tab] 37.5 mg PO BID tablet 02/26/21 Unknown Rx carvediloL [Coreg] 25 mg PO Q12HR tablet 02/26/21 Unknown Rx hydrALAZINE [Apresoline TAB] 50 mg PO TID 30 Days #90 tablet 02/26/21 Unknown Rx Allergies Allergy/AdvReac Type Severity Reaction Status Date / Time No Known Allergies Allergy Verified 02/04/21 11:23 ED Review of Systems ROS: Stated complaint: LEG SWOLLEN Other details as noted in HPI Constitutional: denies: chills, fever Eyes: denies: eye pain, eye discharge, vision change ENT: denies: ear pain, throat pain Respiratory: denies: cough, shortness of breath, wheezing Cardiovascular: denies: chest pain, palpitations Endocrine: no symptoms reported Gastrointestinal: denies: abdominal pain, nausea, diarrhea Genitourinary: denies: urgency, dysuria, discharge Musculoskeletal: denies: back pain, joint swelling, arthralgia Skin: denies: rash, lesions Neurological: denies: headache, weakness, paresthesias Psychiatric: denies: anxiety, depression Hematological/Lymphatic: denies: easy bleeding, easy bruising ED Past Medical Hx - Past Medical History Hx Hypertension: Yes Hx Heart Attack/AMI: No Hx Congestive Heart Failure: No Hx Diabetes: Yes Hx Deep Vein Thrombosis: No Hx Liver Disease: No Hx Renal Disease: Yes (dialysis m/w/f) Hx Kidney Stones: No Hx Asthma: No Hx COPD: No Additional medical history: Deaf - Surgical History Hx Coronary Stent: No Hx Pacemaker: No Hx Internal Defibrillator: No Additional Surgical History: right chest permacath - Social History Smoking Status: Never Smoker - Medications Home Medications: Home Medications Medication Instructions Recorded Confirmed Last Taken Type Hydralazine HCl 50 mg PO TID 02/04/21 02/04/21 Unknown History Valsartan [Diovan] 80 mg PO QDAY 02/04/21 02/04/21 Unknown History Venlafaxine HCl [Effexor Xr] 37.5 mg PO QDAY 02/04/21 02/04/21 Unknown History carvediloL [Coreg] 25 mg PO BID 02/04/21 02/04/21 Unknown History sevelamer HCL [Sevelamer HCl] 800 mg PO TID 02/04/21 02/04/21 Unknown History Cinacalcet [Sensipar] 30 mg PO QDAY 30 Days #30 tablet 02/26/21 Unknown Rx Sevelamer Carbonate [Renvela] 800 mg PO AC tablet 02/26/21 Unknown Rx Valsartan [Diovan] 80 mg PO DAILY tablet 02/26/21 Unknown Rx Venlafaxine [Effexor 37.5mg tab] 37.5 mg PO BID tablet 02/26/21 Unknown Rx carvediloL [Coreg] 25 mg PO Q12HR tablet 02/26/21 Unknown Rx hydrALAZINE [Apresoline TAB] 50 mg PO TID 30 Days #90 tablet 02/26/21 Unknown Rx ED Physical Exam - General Limitations: Language Barrier General appearance: in no apparent distress - Head Head exam: Present: atraumatic, normocephalic - Eye Eye exam: Present: normal appearance - ENT ENT exam: Present: mucous membranes moist - Neck Neck exam: Present: normal inspection - Respiratory Respiratory exam: Present: normal lung sounds bilaterally. Absent: respiratory distress - Cardiovascular Cardiovascular Exam: Present: regular rate, normal rhythm. Absent: systolic murmur, diastolic murmur, rubs, gallop - GI/Abdominal GI/Abdominal exam: Present: soft, normal bowel sounds - Extremities Exam Extremities exam: Present: normal inspection - Back Exam Back exam: Present: normal inspection - Neurological Exam Neurological exam: Present: alert, oriented X3 - Psychiatric Psychiatric exam: Present: normal affect, normal mood - Skin Skin exam: Present: warm, dry, intact, normal color. Absent: rash ED Course - Reevaluation(s) Reevaluation #1: 03/23/21 19:27 pt refused admission spoke ith dr dickens to put orders in but pt was resistant , left home , understands risks and ED Medical Decision Making - Lab Data Result diagrams: 03/23/21 16:21 03/23/21 16:21 Critical care attestation.: If time is entered above; I have spent that time in minutes in the direct care of this critically ill patient, excluding procedure time. ED Disposition Clinical Impression: Hyperkalemia Disposition: 07 LEFT AGAINST MEDICAL ADVICE Is pt being admited?: No Does the pt Need Aspirin: No Condition: Stable Instructions: Abdominal Pain (ED), Hyperkalemia, [id number] Referrals: PRIMARY CARE,MD [Primary Care Provider] - 3-5 Days Forms: AMA Form
[2021-03-23 18:05] LABS: Albumin 3.9 g/dL (3.9-5)
[2021-03-23 18:07] LABS: Alanine Aminotransferase 139 units/L (7-56); Calcium 8.8 mg/dL (8.4-10.2); Hemolysis Index 6
[2021-03-23 18:14] LABS: BUN/Creatinine Ratio 13; Bilirubin,Direct < 0.2 mg/dL (0-0.2); Blood Urea Nitrogen 146 mg/dL (7-17)
[2021-03-23] MEDS ORDERED: CALCIUM CHLORIDE 1,000 MG in SODIUM CHLORIDE 0.9% 100 ML IV ONE (18:21)
[2021-03-23] MEDS ORDERED: SODIUM CHLORIDE 0.9% 1000 ML 1,000 ML IV ONE (18:22)
[2021-03-23] MEDS ORDERED: ALBUTEROL 2.5 MG/3 ML NEBU IH ONE (18:22)
[2021-03-23] MEDS ORDERED: SODIUM POLYSTYRENE 15 GM/60 ML ORAL LIQD PO ONE (18:22)
[2021-03-23] MEDS ORDERED: DEXTROSE 50% IN WATER (25GM) 50 ML SYRINGE IV ONE (18:23)
[2021-03-23] MEDS ORDERED: INSULIN REGULAR, HUMAN 100 UNITS/1 ML IV ONE (18:23)
[2021-03-23] MEDS ORDERED: SODIUM CHLORIDE 0.9% 100 ML IV PRN (19:21)
[2021-03-23 19:29] LABS: Hepatitis C Virus Antibody Non-Reactive (NonReactive)
[2021-03-23 19:33] LABS: Hepatitis B Surface Antigen Nonreactive (Negative)
== END 2021-03-23 21:22 | disposition left against medical advice (07) ==
LOC: ED 15:43
DX: E87.5 Hyperkalemia (principal); I10 Essential (primary) hypertension; Z79.899 Other long term (current) drug therapy; Z98.890 Other specified postprocedural states
CPT/HCPCS: 36415; 80048; 80074; 80076; 83690; 85025; 96374; 96375; 99283; J2270; J2405; J3490

== ENCOUNTER 2021-03-24 12:41 | Observation (INO) | payer MEDICARE ==
[2021-03-24 14:57] LABS: Hematocrit 23.1 % (30.3-42.9); Mean Corpuscular HGB Conc 30 % (30-34); Mean Corpuscular Volume 88 fl (79-97); Platelet Count 265 K/mm3 (140-440); Red Blood Count 2.62 M/mm3 (3.65-5.03)
--- NOTE | 2021-03-24 15:05 | Emergency Department Report ---
ED General Adult HPI - General Chief complaint: Recheck/Abnormal Lab/Rx Stated complaint: MISSED TREATMENT Time Seen by Provider: 03/24/21 14:13 Source: patient Mode of arrival: Ambulatory Limitations: No Limitations - History of Present Illness Initial comments: 55-year deaf female the past medical history of end-stage renal disease on dialysis Wednesday, , and Wednesday presents to the hospital after missing 2 dialysis sessions. Last dialysis was last Wednesday 6 days ago. Patient has been having diarrhea and her last dialysis she was cut short secondary to diarrhea. She missed her other dialysis sessions due to continued loose bowels. Patient has not recent be treated with antibiotics. No reports of fever. She is vaccinated for Covid. Patient was seen yesterday for the same symptoms and had a potassium 3.3 and BUN 146 with creatinine of 11.3. Admission was recommended however, patient signed out AGAINST MEDICAL ADVICE. Medications for for hyperkalemia were ordered but it does not appear that patient received them prior to leaving. She might have received albuterol since aerosol treatment is listed as completed. Currently sister is at the bedside insisting that her sister will stay. Patient currently receives dialysis at [facility] dialysis center in [place]. PMD: Dr. Schwartz. Primary bilingual teacher assistant name unknown. - Related Data Home Medications Medication Instructions Recorded Confirmed Last Taken Hydralazine HCl 50 mg PO TID 02/04/21 02/04/21 Unknown Valsartan [Diovan] 80 mg PO QDAY 02/04/21 02/04/21 Unknown Venlafaxine HCl [Effexor Xr] 37.5 mg PO QDAY 02/04/21 02/04/21 Unknown carvediloL [Coreg] 25 mg PO BID 02/04/21 02/04/21 Unknown sevelamer HCL [Sevelamer HCl] 800 mg PO TID 02/04/21 02/04/21 Unknown Previous Rx's Medication Instructions Recorded Last Taken Type Cinacalcet [Sensipar] 30 mg PO QDAY 30 Days #30 tablet 02/26/21 Unknown Rx Sevelamer Carbonate [Renvela] 800 mg PO AC tablet 02/26/21 Unknown Rx Valsartan [Diovan] 80 mg PO DAILY tablet 02/26/21 Unknown Rx Venlafaxine [Effexor 37.5mg tab] 37.5 mg PO BID tablet 02/26/21 Unknown Rx carvediloL [Coreg] 25 mg PO Q12HR tablet 02/26/21 Unknown Rx hydrALAZINE [Apresoline TAB] 50 mg PO TID 30 Days #90 tablet 02/26/21 Unknown Rx Allergies Allergy/AdvReac Type Severity Reaction Status Date / Time No Known Allergies Allergy Verified 02/04/21 11:23 ED Review of Systems ROS: Stated complaint: MISSED TREATMENT Other details as noted in HPI ED Past Medical Hx - Past Medical History Hx Hypertension: Yes Hx Heart Attack/AMI: No Hx Congestive Heart Failure: No Hx Diabetes: Yes Hx Deep Vein Thrombosis: No Hx Liver Disease: No Hx Renal Disease: Yes (dialysis m/w/f) Hx Kidney Stones: No Hx Asthma: No Hx COPD: No Additional medical history: Deaf - Surgical History Hx Coronary Stent: No Hx Pacemaker: No Hx Internal Defibrillator: No Additional Surgical History: right chest permacath - Social History Smoking Status: Never Smoker - Medications Home Medications: Home Medications Medication Instructions Recorded Confirmed Last Taken Type Hydralazine HCl 50 mg PO TID 02/04/21 02/04/21 Unknown History Valsartan [Diovan] 80 mg PO QDAY 02/04/21 02/04/21 Unknown History Venlafaxine HCl [Effexor Xr] 37.5 mg PO QDAY 02/04/21 02/04/21 Unknown History carvediloL [Coreg] 25 mg PO BID 02/04/21 02/04/21 Unknown History sevelamer HCL [Sevelamer HCl] 800 mg PO TID 02/04/21 02/04/21 Unknown History Cinacalcet [Sensipar] 30 mg PO QDAY 30 Days #30 tablet 02/26/21 Unknown Rx Sevelamer Carbonate [Renvela] 800 mg PO AC tablet 02/26/21 Unknown Rx Valsartan [Diovan] 80 mg PO DAILY tablet 02/26/21 Unknown Rx Venlafaxine [Effexor 37.5mg tab] 37.5 mg PO BID tablet 02/26/21 Unknown Rx carvediloL [Coreg] 25 mg PO Q12HR tablet 02/26/21 Unknown Rx hydrALAZINE [Apresoline TAB] 50 mg PO TID 30 Days #90 tablet 02/26/21 Unknown Rx ED Physical Exam - General Limitations: No Limitations - Other Other exam information: General: No acute distress Head: Atraumatic Eyes: normal appearance ENT: deaf Neck: Normal appearance, no midline tenderness Chest: Clear to auscultation bilaterally CV: Regular rate and rhythm Abdomen: Soft, normal bowel sounds, nontender, nondistended, no rebound or guarding Extremity: Bilateral leg edema Neuro: Alert O x 3, no facial asymmetry, speech clear, no gross motor sensory deficit Psych: Appropriate behavior ED Course Vital Signs 03/24/21 03/24/21 12:57 15:47 Temperature 97.4 F L Pulse Rate 52 L Respiratory 18 Rate Respiratory 16 Rate [Bilateral ] Blood Pressure 196/69 O2 Sat by Pulse 100 Oximetry - Consultations Consultation #1: 03/24/21 16:[address] Galindo at this time (for the second time) who will place stat dialysis orders. Previous call was made to Dr. Good (the last group on record to manage the patient). They state this is not their primary patient and they do not cover [facility] therefore call replaced with Dr. Chase on-call bilingual teacher assistant ED Medical Decision Making - Lab Data Result diagrams: 03/24/21 14:31 03/24/21 14:31 Lab Results 03/24/21 03/24/21 Range/Units 14:31 14:31 WBC 8.3 (4.5-11.0) K/mm3 RBC 2.62 L (3.65-5.03) M/mm3 Hgb 7.0 L (10.1-14.3) gm/dl Hct 23.1 L (30.3-42.9) % MCV 88 (79-97) fl MCH 27 L (28-32) pg MCHC 30 (30-34) % RDW 20.0 H (13.2-15.2) % Plt Count 265 (140-440) K/mm3 Add Manual Diff Complete Total Counted 100 Seg Neuts % (Manual) 76.0 H (40.0-70.0) % Lymphocytes % (Manual) 22.0 (13.4-35.0) % Monocytes % (Manual) 1.0 (0.0-7.3) % Basophils % (Manual) 1.0 (0.0-1.8) % Nucleated RBC % Not Reportable Seg Neutrophils # Man 6.3 (1.8-7.7) K/mm3 Band Neutrophils # 0.0 K/mm3 Lymphocytes # (Manual) 1.8 (1.2-5.4) K/mm3 Abs React Lymphs (Man) 0.0 K/mm3 Monocytes # (Manual) 0.1 (0.0-0.8) K/mm3 Eosinophils # (Manual) 0.0 (0.0-0.4) K/mm3 Basophils # (Manual) 0.1 (0.0-0.1) K/mm3 Metamyelocytes # 0.0 K/mm3 Myelocytes # 0.0 K/mm3 Promyelocytes # 0.0 K/mm3 Blast Cells # 0.0 K/mm3 WBC Morphology Not Reportable Hypersegmented Neuts Not Reportable Hyposegmented Neuts Not Reportable Hypogranular Neuts Not Reportable Smudge Cells Not Reportable Toxic Granulation Not Reportable Toxic Vacuolation Not Reportable Dohle Bodies Not Reportable Pelger-Huet Anomaly Not Reportable Cosme Rods Not Reportable Platelet Estimate Consistent w auto Clumped Platelets Not Reportable Plt Clumps, EDTA Not Reportable Large Platelets Not Reportable Giant Platelets Not Reportable Platelet Satelliting Not Reportable Plt Morphology Comment Not Reportable RBC Morphology Not Reportable Dimorphic RBCs Not Reportable Polychromasia Few Hypochromasia Few Poikilocytosis 1+ Anisocytosis 1+ Microcytosis 1+ Macrocytosis Not Reportable Spherocytes Not Reportable Pappenheimer Bodies Not Reportable Sickle Cells Not Reportable Target Cells Not Reportable Tear Drop Cells Few Ovalocytes Few Helmet Cells Not Reportable [place]-Kimball Bodies Not Reportable Hamburg Rings Not Reportable Sterling Cells Not Reportable Bite Cells Not Reportable Crenated Cell Not Reportable Elliptocytes Not Reportable Acanthocytes (Spur) 1+ Rouleaux Not Reportable Hemoglobin C Crystals Not Reportable Schistocytes 1+ Malaria parasites Not Reportable Jozef Bodies Not Reportable Hem Pathologist Commnt No Sodium 138 (137-145) mmol/L Potassium 8.0 H* (3.6-5.0) mmol/L Chloride 98.2 (98-107) mmol/L Carbon Dioxide 11 L (22-30) mmol/L Anion Gap 37 mmol/L BUN 155 H (7-17) mg/dL Creatinine 12.0 H (0.6-1.2) mg/dL Estimated GFR 4 ml/min BUN/Creatinine Ratio 13 % Glucose 113 H (65-100) mg/dL Calcium 8.7 (8.4-10.2) mg/dL Total Bilirubin 0.30 (0.1-1.2) mg/dL AST 58 H (5-40) units/L ALT 126 H (7-56) units/L Alkaline Phosphatase 228 H (35-129) units/L Total Protein 7.9 (6.3-8.2) g/dL Albumin 4.0 (3.9-5) g/dL Albumin/Globulin Ratio 1.0 % - EKG Data -: EKG Interpreted by Me EKG shows normal: sinus rhythm, ST-T waves (Hyperacute T waves) Rate: bradycardia (Rate 54) - Medical Decision Making 55-year-old female presents to the hospital with end-stage renal disease with hyperkalemia requiring emergent dialysis secondary to noncompliance. Patient's primary bilingual teacher assistant unknown. On-call team will manage patient. Positive EKG changes. Medications ordered for hyperkalemia with exception of Kayexalate given ongoing diarrhea. hospitalist informed for admission Critical Care Time: No Critical care attestation.: If time is entered above; I have spent that time in minutes in the direct care of this critically ill patient, excluding procedure time. ED Disposition Clinical Impression: Hyperkalemia, End-stage renal disease needing dialysis, Non-compliant patient, Acute diarrhea, Uremia Disposition: ADMITTED INPATIENT Is pt being admited?: Yes Condition: Stable Referrals: PRIMARY CARE, [Primary Care Provider] - 3-5 Days Time of Disposition: 16:45 (dR [facility]STRO/HOSP)
[2021-03-24 15:23] LABS: Calcium 8.7 mg/dL (8.4-10.2)
[2021-03-24] MEDS ORDERED: CALCIUM GLUCONATE 1,000 MG in SODIUM CHLORIDE 0.9% 100 ML IV ONE (15:38)
[2021-03-24] MEDS ORDERED: SODIUM BICARB 8.4% 50 MEQ/50 ML SYRINGE IV ONE (15:38)
[2021-03-24] MEDS ORDERED: DEXTROSE 50% IN WATER (25GM) 50 ML VIAL IV ONE (15:39)
[2021-03-24] MEDS ORDERED: INSULIN REGULAR, HUMAN 100 UNITS/1 ML IV ONE (15:39)
[2021-03-24] MEDS ORDERED: FUROSEMIDE 40 MG/4 ML INJ IV ONE (15:40)
[2021-03-24 15:43] LABS: Anisocytosis 1+; Poikilocytosis 1+; Total Cells Counted 100
[2021-03-24 15:44] LABS: Hypochromasia Few; Schistocytes 1+
[2021-03-24 15:45] LABS: Ovalocytes Few
[2021-03-24 15:46] LABS: Platelet Estimate Consistent w Auto; Tear Drop Cells Few
[2021-03-24] MEDS: ALBUTEROL 2.5 MG/3 ML NEBU IH ONE ×2 (15:46→15:47)
--- NOTE | 2021-03-24 16:44 | History and Physical Report ---
History of Present Illness Chief complaint: She needs dialysis History of present illness: 55 YO Female with ESRD on HD(T,R,Sa), DM, HTN, Deaf/Mute, Noncompliance presents to ED for evaluation. Patient is deaf and mute and unable to provide detailed history. Patient history provided by sister who the bedside during exam and interview. As per sister the patient reports missed dialysis. Patient last underwent dialysis 6 days ago. Patient transported [facility] via private vehicle for further care and evaluation of the aforementioned symptoms. The patient was seen and evaluated in the emergency department. All lab and imaging studies reviewed. Patient found to have end-stage renal disease complicated by hyperkal emia with EKG changes. Patient treated in accordance with hyperkalemia protocol. Nephrology team notified in ED for urgent dialysis. Patient taken urgently to the dialysis suite for dialysis. Patient placed in observation status due to increased risk of worsening symptoms. No reports of fever, chills, chest pain, palpitation, productive cough, skin rash, recent contact, known exposure to COVID-19. Prior admission on 03/11 reviewed. All medication listed at time of admission has been reconciled. Advanced care planning conducted in ED. Past History Past Medical History: diabetes, ESRD, hypertension, other (See HPI) Past Surgical History: Other (Dialysis access) Social history: single. denies: smoking, alcohol abuse, prescription drug abuse Family history: diabetes, hypertension Medications and Allergies Allergies Allergy/AdvReac Type Severity Reaction Status Date / Time No Known Allergies Allergy Verified 02/04/21 11:23 Home Medications Medication Instructions Recorded Confirmed Last Taken Type Hydralazine HCl 50 mg PO TID 02/04/21 02/04/21 Unknown History Valsartan [Diovan] 80 mg PO QDAY 02/04/21 02/04/21 Unknown History Venlafaxine HCl [Effexor Xr] 37.5 mg PO QDAY 02/04/21 02/04/21 Unknown History carvediloL [Coreg] 25 mg PO BID 02/04/21 02/04/21 Unknown History sevelamer HCL [Sevelamer HCl] 800 mg PO TID 02/04/21 02/04/21 Unknown History Cinacalcet [Sensipar] 30 mg PO QDAY 30 Days #30 tablet 02/26/21 Unknown Rx Sevelamer Carbonate [Renvela] 800 mg PO AC tablet 02/26/21 Unknown Rx Valsartan [Diovan] 80 mg PO DAILY tablet 02/26/21 Unknown Rx Venlafaxine [Effexor 37.5mg tab] 37.5 mg PO BID tablet 02/26/21 Unknown Rx carvediloL [Coreg] 25 mg PO Q12HR tablet 02/26/21 Unknown Rx hydrALAZINE [Apresoline TAB] 50 mg PO TID 30 Days #90 tablet 02/26/21 Unknown Rx Review of Systems ROS unobtainable: due to mental status Exam - Constitutional Vitals: Temp Pulse Resp BP Pulse Ox 97.4 F L 52 L 16 196/69 100 03/24/21 12:57 03/24/21 12:57 03/24/21 15:47 03/24/21 12:57 03/24/21 12:57 General appearance: Present: mild distress - EENT Eyes: Present: PERRL ENT: hearing intact, clear oral mucosa - Neck Neck: Present: supple, normal ROM - Respiratory Respiratory effort: normal Respiratory: bilateral: CTA - Cardiovascular Heart Sounds: Present: S1 & S2. Absent: rub, click - Extremities Extremities: pulses symmetrical, No edema Peripheral Pulses: within normal limits - Abdominal General gastrointestinal: Present: soft, non-tender, non-distended, normal bowel sounds Female genitourinary: Present: normal - Integumentary Integumentary: Present: clear, warm, dry - Musculoskeletal Musculoskeletal: gait normal, strength equal bilaterally - Psychiatric Psychiatric: appropriate mood/affect, intact judgment & insight - Neurologic Neurologic: CNII-XII intact, moves all extremities, no gait normal Results - Labs CBC & Chem 7: 03/24/21 14:31 03/24/21 14:31 Labs: Abnormal lab results 03/24/21 03/24/21 Range/Units 14:31 14:31 RBC 2.62 L (3.65-5.03) M/mm3 Hgb 7.0 L (10.1-14.3) gm/dl Hct 23.1 L (30.3-42.9) % MCH 27 L (28-32) pg RDW 20.0 H (13.2-15.2) % Seg Neuts % (Manual) 76.0 H (40.0-70.0) % Potassium 8.0 H* (3.6-5.0) mmol/L Carbon Dioxide 11 L (22-30) mmol/L BUN 155 H (7-17) mg/dL Creatinine 12.0 H (0.6-1.2) mg/dL Glucose 113 H (65-100) mg/dL AST 58 H (5-40) units/L ALT 126 H (7-56) units/L Alkaline Phosphatase 228 H (35-129) units/L Assessment and Plan - Patient Problems (1) End stage renal disease Current Visit: Yes Status: Acute Plan to address problem: Nephrology team consulted in ED, urgent dialysis as per renal team, monitor fluid Balance, avoid nephrotoxic agents. (2) Hyperkalemia Current Visit: No Status: Acute Plan to address problem: Urgent dialysis, calcium gluconate, Kayexalate, insulin, D50, repeat BMP in a.m. (3) Hypertensive urgency Current Visit: No Status: Acute Plan to address problem: Monitor blood pressure every shift, continue medical management. Hydralazine 20 mg IV every 6 hours as needed for systolic blood pressure greater than equal 155 mmHg (4) DVT prophylaxis Current Visit: Yes Status: Acute Plan to address problem: SCD to bilateral lower extremities while in bed (5) Advance care planning Current Visit: Yes Status: Acute Plan to address problem: Disease education conducted, care plan discussed, diagnoses discussed, prognosis discussed, patient is full code. Patient family member acknowledged understanding and agreement with care plan, +30 minutes. Patient and family counseled regarding noncompliance. Patient and family acknowledge understanding that noncompliance may increased risk of worsening symptoms and premature .
[2021-03-24] MEDS ORDERED: CALCIUM CHLORIDE 1,000 MG/10 ML SYRINGE IV ONE ×2 (17:00→17:12)
[2021-03-24] MEDS ORDERED: CALCIUM CHLORIDE 1,000 MG/10 ML SDV IVP ONE (17:08)
[2021-03-24] MEDS ORDERED: DEXTROSE 50% IN WATER (25GM) 50 ML SYRINGE IV ONE (17:11)
[2021-03-24] MEDS ORDERED: SODIUM CHLORIDE 0.9% 100 ML IV PRN (17:52)
[2021-03-24] MEDS ORDERED: oxyCODONE /ACETAMINOPHEN 5-325MG TAB PO PRN (18:07)
[2021-03-24] MEDS ORDERED: ONDANSETRON 4 MG/2 ML INJ IV PRN (18:07)
[2021-03-24] MEDS ORDERED: HYDROmorphone 1 MG/1 ML INJ IV PRN (18:07)
[2021-03-24] MEDS ORDERED: ALBUTEROL 2.5 MG/3 ML NEBU IH PRN (18:07)
[2021-03-24] MEDS ORDERED: ACETAMINOPHEN 325 MG TAB PO PRN (18:07)
[2021-03-24] MEDS ORDERED: NON-FORMULARY EACH (Hydralazine Hcl [Hydralazine Hcl] 50 MG Tablet) PO SCH (18:25)
[2021-03-24] MEDS ORDERED: hydrALAZINE 25 MG TAB PO SCH (18:25)
[2021-03-24] MEDS ORDERED: NON-FORMULARY EACH (Valsartan [Diovan] 80 MG Tablet) PO SCH (18:25)
[2021-03-24] MEDS: carvediloL 12.5 MG TAB PO SCH ×2 (19:27→22:08)
[2021-03-24] MEDS ORDERED: hydrALAZINE 20 MG/1 ML INJ IV PRN (19:49)
[2021-03-24] MEDS: VALSARTAN 40 MG TAB PO SCH (21:56)
[2021-03-24] MEDS: VENLAFAXINE 37.5 MG TAB PO SCH (21:56)
[2021-03-24] MEDS: hydrALAZINE 25 MG TAB PO SCH (22:08)
[2021-03-24] MEDS ORDERED: LORazepam 2 MG/ML VIAL IV ONE (22:31)
[2021-03-25 06:05] LABS: Calcium 8.1 mg/dL (8.4-10.2)
[2021-03-25] MEDS ORDERED: CINACALCET 30 MG TAB PO SCH (10:00)
[2021-03-25] MEDS: hydrALAZINE 25 MG TAB PO SCH (11:01)
[2021-03-25] MEDS: SEVELAMER CARBONATE 800 MG TAB PO SCH ×2 (11:01→11:06)
[2021-03-25] MEDS: VALSARTAN 40 MG TAB PO SCH (11:02)
[2021-03-25] MEDS: VENLAFAXINE 37.5 MG TAB PO SCH (11:02)
--- NOTE | 2021-03-25 11:37 | Discharge Summary ---
Providers - Providers Date of Admission: 03/24/21 18:07 Attending physician: LIUDMILA APARICIO MD 03/24/21 16:47 Consult to Physician [CONS] Stat Comment: Consulting Provider: AYE MORALES Physician Instructions: Reason For Exam: ESRD NEEDING DIALYSIS HYPERKALEMIA Primary care physician: NATALIE KINCAID MD Hospitalization Condition: Stable Exam - Constitutional Vitals: Temp Pulse Resp BP Pulse Ox 97.8 F 63 16 200/76 100 03/24/21 21:14 03/25/21 11:02 03/25/21 09:45 03/25/21 11:02 03/25/21 09:45 Plan Care Plan Goals: Please return to your dialysis clinic at your regularly scheduled time. Follow-up with your PCP within 1 week. Follow up with: NATALIE KINCAID MD [Primary Care Provider] - 3-5 Days
--- NOTE | 2021-03-25 12:10 | Electrocardiograph Report ---
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
--- NOTE | 2021-03-25 13:51 | Consultation ---
History of Present Illness - Reason for Consult end stage renal disease, hyperkalemia - History of Present Illness 55-year-old female with a past medical history of end-stage renal disease in the setting of hypertension and diabetes, who is also deaf and mute, and thus a very poor historian, presents to emergency department for needs of dialysis. As mentioned she has history of noncompliance and has come in and out of this hospital multiple times for dialysis needs and has left AGAINST MEDICAL ADVICE on multiple occasions as well. Was called last night for patient secondary to her abnormal laboratory studies specifically her hyperkalemia. She was emergently dialyzed yesterday and tolerated dialysis well. Labs this morning are stable. Past History Past Medical History: diabetes, ESRD, hypertension, other (See HPI) Past Surgical History: Other (Dialysis access) Social history: single. denies: smoking, alcohol abuse, prescription drug abuse Family history: diabetes, hypertension Medications and Allergies Allergies Allergy/AdvReac Type Severity Reaction Status Date / Time No Known Allergies Allergy Verified 02/04/21 11:23 Home Medications Medication Instructions Recorded Confirmed Last Taken Type Hydralazine HCl 50 mg PO TID 02/04/21 02/04/21 Unknown History Valsartan [Diovan] 80 mg PO QDAY 02/04/21 02/04/21 Unknown History Venlafaxine HCl [Effexor Xr] 37.5 mg PO QDAY 02/04/21 02/04/21 Unknown History carvediloL [Coreg] 25 mg PO BID 02/04/21 02/04/21 Unknown History sevelamer HCL [Sevelamer HCl] 800 mg PO TID 02/04/21 02/04/21 Unknown History Cinacalcet [Sensipar] 30 mg PO QDAY 30 Days #30 tablet 02/26/21 Unknown Rx Sevelamer Carbonate [Renvela] 800 mg PO AC tablet 02/26/21 Unknown Rx Venlafaxine [Effexor 37.5mg tab] 37.5 mg PO BID tablet 02/26/21 Unknown Rx carvediloL [Coreg] 25 mg PO Q12HR tablet 02/26/21 Unknown Rx hydrALAZINE [Apresoline TAB] 50 mg PO TID 30 Days #90 tablet 02/26/21 Unknown Rx Active Meds: Active Medications Acetaminophen (Acetaminophen 325 Mg Tab) 650 mg PO Q4H PRN PRN Reason: Pain MILD(1-3)/Fever >100.5/PALOMINO Albuterol (Albuterol 2.5 Mg/3 Ml Nebu) 2.5 mg IH Q4HRT PRN PRN Reason: Shortness Of Breath Carvedilol (Carvedilol 12.5 Mg Tab) 25 mg PO BID [facility] Last Admin: 03/24/21 22:08 Dose: 25 mg Documented by: Cinacalcet (Cinacalcet 30 Mg Tab) 30 mg PO QDAY [facility] Last Admin: 03/25/21 11:01 Dose: 30 mg Documented by: Hydralazine HCl (Hydralazine 25 Mg Tab) 50 mg PO TID [facility] Last Admin: 03/25/21 11:01 Dose: 50 mg Documented by: Hydralazine HCl (Hydralazine 20 Mg/1 Ml Inj) 20 mg IV Q6HR PRN PRN Reason: Hypertension Last Admin: 03/25/21 01:45 Dose: 20 mg Documented by: Hydromorphone HCl (Hydromorphone 1 Mg/1 Ml Inj) 0.5 mg IV Q23H PRN PRN Reason: Pain , Severe (7-10) Sodium Chloride (Nacl 0.9%) 100 mls @ 999 mls/hr IV KEV PRN PRN Reason: Hypotension Ondansetron HCl (Ondansetron 4 Mg/2 Ml Inj) 4 mg IV Q8H PRN PRN Reason: Nausea And Vomiting Oxycodone/Acetaminophen (Oxycodone /Acetaminophen 5-325mg Tab) 1 tab PO Q16H PRN PRN Reason: Pain, Moderate (4-6) Sevelamer Carbonate (Sevelamer Carbonate 800 Mg Tab) 800 mg PO AC [facility] Last Admin: 03/25/21 11:06 Dose: Not Given Documented by: Sodium Chloride (Sodium Chloride 0.9% 10 Ml Flush Syringe) 10 ml IV BID [facility] Last Admin: 03/25/21 11:03 Dose: 10 ml Documented by: Sodium Chloride (Sodium Chloride 0.9% 10 Ml Flush Syringe) 10 ml IV PRN PRN PRN Reason: LINE FLUSH Valsartan (Valsartan 40 Mg Tab) 80 mg PO DAILY [facility] Last Admin: 03/25/21 11:02 Dose: 80 mg Documented by: Venlafaxine HCl (Venlafaxine 37.5 Mg Tab) 37.5 mg PO BID [facility] Last Admin: 03/25/21 11:02 Dose: 37.5 mg Documented by: Review of Systems ROS unobtainable: due to mental status Exam - Vital Signs Vital signs: Vital Signs Temp Pulse Resp BP Pulse Ox 97.4 F L 52 L 18 196/69 100 03/24/21 12:57 03/24/21 12:57 03/24/21 12:57 03/24/21 12:57 03/24/21 12:57 - General Appearance General appearance: appears stated age EENT: ATNC Neck: Present: neck supple Respiratory: Clear to Ascultation Heart: regular Gastrointestinal: Present: normal Neurologic: no focal deficit Results - Lab Results 03/24/21 14:31 03/25/21 04:59 Most recent lab results Calcium 8.1 mg/dL (8.4-10.2) L 03/25/21 04:59 Assessment and Plan - Patient Problems (1) ESRD needing dialysis Current Visit: Yes Status: Chronic Plan to address problem: patient received hemodialysis emergently yesterday and tolerated treatment well. No acute needs for dialysis today and from nephrology standpoint stable for discharge. (2) Hyperkalemia Current Visit: Yes Status: Acute Plan to address problem: counseled on importance of implants with low potassium diet along with complying with her regular outpatient hemodialysis regimen. (3) Non-compliant patient Current Visit: Yes Status: Acute Plan to address problem: counseled patient on the importance of complying with hemodialysis on a regular basis. (4) Hypertension Current Visit: No Status: Chronic Qualifiers: Hypertension type: essential hypertension Qualified Code(s): I10 - Essential (primary) hypertension Plan to address problem: monitor blood pressures on the current regimen. (5) Insulin dependent diabetes mellitus Current Visit: No Status: Chronic Plan to address problem: diabetes management per primary attending.
[2021-03-25] MEDS: carvediloL 12.5 MG TAB PO SCH (16:00)
[2021-03-25 16:25] VITALS: BP 184/71
== END 2021-03-25 15:45 | disposition still patient (30) ==
LOC: ED 13:58 → 3A 18:07
PROVIDERS: ADMIT Internal Medicine; ATTEND Student in an Organized Health Care Education/Training Program
DX: I16.0 Hypertensive urgency (principal); I12.0 Hypertensive chronic kidney disease with stage 5 chronic kidney disease or end stage renal disease; N18.6 End stage renal disease; E11.22 Type 2 diabetes mellitus with diabetic chronic kidney disease; H91.90 Unspecified hearing loss, unspecified ear; E87.70 Fluid overload, unspecified; E87.5 Hyperkalemia; R19.7 Diarrhea, unspecified; Z91.19 Patient's noncompliance with other medical treatment and regimen; Z79.899 Other long term (current) drug therapy; Z98.890 Other specified postprocedural states
CPT/HCPCS: 36415; 80048; 80053; 85025; 93005; 94644; 96374; 96375; 99284; G0257; G0378; J0360; J0610; J1940; J2060; J3490; 85007; Q9967; J1815

== ENCOUNTER 2021-03-31 14:46 | Observation (INO) | payer MEDICARE ==
--- NOTE | 2021-03-31 17:47 | Emergency Department Report ---
ED General Adult HPI - General Chief complaint: Weakness Stated complaint: HAVEN'T HAD DIALYSIS Time Seen by Provider: 03/31/21 17:33 Source: patient Mode of arrival: Wheelchair Limitations: No Limitations - History of Present Illness Initial comments: Patient is 55 years old female with history of end-stage renal disease on hemodialysis. Patient is deaf. Patient is accompanied by her sister who is helping with communication. Sister stated that she did not have dialysis for the whole week. She stated that the dialysis center that she is going to regularly is [facility] the [place] and they told all their patient to check for COVID-19 and if they do not present a negative test they should not come to the dialysis center. Patient sister stated that she was tested 2 days ago but we did not receive the results yet. She is complaining of mild shortness of breath but no other complaint. - Related Data Home Medications Medication Instructions Recorded Confirmed Last Taken carvediloL [Coreg] 25 mg PO BID 02/04/21 02/04/21 Unknown Previous Rx's Medication Instructions Recorded Last Taken Type Cinacalcet [Sensipar] 30 mg PO QDAY 30 Days #30 tablet 02/26/21 Unknown Rx Sevelamer Carbonate [Renvela] 800 mg PO AC tablet 02/26/21 Unknown Rx Venlafaxine [Effexor 37.5mg tab] 37.5 mg PO BID tablet 02/26/21 Unknown Rx hydrALAZINE [Apresoline TAB] 50 mg PO TID 30 Days #90 tablet 02/26/21 Unknown Rx Hydralazine HCl 50 mg PO TID 30 Days #90 tab 03/25/21 Unknown Rx Valsartan [Diovan] 80 mg PO QDAY 30 Days #30 tab 03/25/21 Unknown Rx Venlafaxine HCl [Effexor Xr] 37.5 mg PO QDAY 30 Days #30 tab 03/25/21 Unknown Rx carvediloL [Coreg] 25 mg PO Q12HR 30 Days #60 tablet 03/25/21 Unknown Rx sevelamer HCL [Sevelamer HCl] 800 mg PO TID 30 Days #90 tab 03/25/21 Unknown Rx Allergies Allergy/AdvReac Type Severity Reaction Status Date / Time No Known Allergies Allergy Verified 02/04/21 11:23 ED Review of Systems ROS: Stated complaint: HAVEN'T HAD DIALYSIS Other details as noted in HPI Comment: All other systems reviewed and negative Constitutional: denies: chills, fever Respiratory: shortness of breath. denies: cough Cardiovascular: denies: chest pain, palpitations Gastrointestinal: denies: abdominal pain, nausea, vomiting, diarrhea, constipation, hematemesis, melena, hematochezia Musculoskeletal: denies: back pain Neurological: denies: headache, weakness ED Past Medical Hx - Past Medical History Previous Medical History?: Yes Hx Hypertension: Yes Hx Heart Attack/AMI: No Hx Congestive Heart Failure: No Hx Diabetes: Yes Hx Deep Vein Thrombosis: No Hx Liver Disease: No Hx Renal Disease: Yes (dialysis m/w/f) Hx Kidney Stones: No Hx Asthma: No Hx COPD: No Additional medical history: Deaf - Surgical History Past Surgical History?: Yes Hx Coronary Stent: No Hx Pacemaker: No Hx Internal Defibrillator: No Additional Surgical History: right chest permacath - Social History Smoking Status: Never Smoker - Medications Home Medications: Home Medications Medication Instructions Recorded Confirmed Last Taken Type carvediloL [Coreg] 25 mg PO BID 02/04/21 02/04/21 Unknown History Cinacalcet [Sensipar] 30 mg PO QDAY 30 Days #30 tablet 02/26/21 Unknown Rx Sevelamer Carbonate [Renvela] 800 mg PO AC tablet 02/26/21 Unknown Rx Venlafaxine [Effexor 37.5mg tab] 37.5 mg PO BID tablet 02/26/21 Unknown Rx hydrALAZINE [Apresoline TAB] 50 mg PO TID 30 Days #90 tablet 02/26/21 Unknown Rx Hydralazine HCl 50 mg PO TID 30 Days #90 tab 03/25/21 Unknown Rx Valsartan [Diovan] 80 mg PO QDAY 30 Days #30 tab 03/25/21 Unknown Rx Venlafaxine HCl [Effexor Xr] 37.5 mg PO QDAY 30 Days #30 tab 03/25/21 Unknown Rx carvediloL [Coreg] 25 mg PO Q12HR 30 Days #60 tablet 03/25/21 Unknown Rx sevelamer HCL [Sevelamer HCl] 800 mg PO TID 30 Days #90 tab 03/25/21 Unknown Rx ED Physical Exam - General Limitations: No Limitations General appearance: alert, in no apparent distress - Head Head exam: Present: atraumatic, normocephalic, normal inspection - Eye Eye exam: Present: normal appearance - ENT ENT exam: Present: normal exam, normal orophraynx, mucous membranes moist - Neck Neck exam: Present: normal inspection, full ROM. Absent: tenderness, meningismus - Respiratory Respiratory exam: Present: normal lung sounds bilaterally - Cardiovascular Cardiovascular Exam: Present: regular rate, normal rhythm, normal heart sounds - GI/Abdominal GI/Abdominal exam: Present: soft, normal bowel sounds. Absent: distended, tenderness, guarding, rebound, rigid, organomegaly, mass, bruit, pulsatile mass, hernia - Extremities Exam Extremities exam: Present: normal inspection, full ROM, normal capillary refill. Absent: tenderness - Back Exam Back exam: Present: normal inspection, full ROM. Absent: CVA tenderness (R), CVA tenderness (L) - Neurological Exam Neurological exam: Present: alert, oriented X3, CN II-XII intact - Psychiatric Psychiatric exam: Present: normal mood - Skin Skin exam: Present: warm, intact, normal color ED Course Vital Signs 03/31/21 17:26 Temperature 98 F Pulse Rate 62 Respiratory 16 Rate Blood Pressure 212/95 [Left] O2 Sat by Pulse 100 Oximetry ED Medical Decision Making - Lab Data Result diagrams: 03/31/21 17:49 03/31/21 17:49 - Radiology Data Radiology results: report reviewed - Medical Decision Making Patient is 55 years old female with history of end-stage renal disease on hemodialysis. Patient is deaf. Patient is accompanied by her sister who is helping with communication. Sister stated that she did not have dialysis for the whole week. She stated that the dialysis center that she is going to regularly is [facility] the [facility] and they told all their patient to check for COVID-19 and if they do not present a negative test they should not come to the dialysis center. Patient sister stated that she was tested 2 days ago but we did not receive the results yet. She is complaining of mild shortness of breath but no other complaint. Patient received hydralazine 20 mg IV for blood pressure. Labs reviewed and showed a potassium 7.4, creatinine of 10 and BUN of 109. Patient received calcium chloride, albuterol, dextrose, insulin and Kayexalate. I discussed the patient with Dr. Montelongo, lab manager on-call for the patient and he stated that he will call emergency dialysis. I discussed the patient with Dr. Vizcarra, he agreed to admit to the hospital for further management. Critical Care Time: Yes Critical care time in (mins) excluding proc time.: 35 Critical care attestation.: If time is entered above; I have spent that time in minutes in the direct care of this critically ill patient, excluding procedure time. ED Disposition Clinical Impression: Acute hyperkalemia, Volume overload, End-stage renal disease needing dialysis, Malignant hypertension Disposition: 02 SHORT TERM HOSPITAL Is pt being admited?: Yes Condition: Stable Instructions: Hypertension (ED)
[2021-03-31 18:07] LABS: Hematocrit 25.8 % (30.3-42.9); Hemoglobin 8.1 gm/dl (10.1-14.3); Mean Corpuscular HGB Conc 31 % (30-34); Mean Corpuscular Volume 87 fl (79-97); Platelet Count 326 K/mm3 (140-440); Red Blood Count 2.97 M/mm3 (3.65-5.03); Red Cell Distribution Width 18.9 % (13.2-15.2)
[2021-03-31 18:22] LABS: Basophils # (Auto) 0.1 K/mm3 (0.0-0.1); Basophils % (Auto) 0.9 % (0.0-1.8); Calcium 8.5 mg/dL (8.4-10.2); Eosinophils # (Auto) 0.1 K/mm3 (0.0-0.4); Eosinophils % (Auto) 1.1 % (0.0-4.3); Lymphocytes # (Auto) 2.1 K/mm3 (1.2-5.4); Lymphocytes % (Auto) 24.2 % (13.4-35.0); Monocytes # (Auto) 0.3 K/mm3 (0.0-0.8); Monocytes % (Auto) 3.7 % (0.0-7.3)
[2021-03-31] MEDS ORDERED: hydrALAZINE 20 MG/1 ML INJ IV ONE (18:30)
--- NOTE | 2021-03-31 18:35 | XRay Report ---
CHEST 2 VIEWS INDICATION / CLINICAL INFORMATION: SOB STUDY TIME: 1803 COMPARISON: 02/24/2021 FINDINGS: SUPPORT DEVICES: Multilumen catheter is unchanged HEART / MEDIASTINUM: Cardiomegaly is less prominent LUNGS / PLEURA: Mild congestion is seen with mild interstitial edema. No definite focal infiltrates a re noted. No pleural effusions are seen. No pneumothorax. ADDITIONAL FINDINGS: No significant additional findings. Signer Name: Yuniel Child MD Signed: 03/31/2021 6:31 PM Workstation Name: [id number]
[2021-03-31] MEDS ORDERED: ALBUTEROL 2.5 MG/3 ML NEBU IH ONE (18:40)
[2021-03-31] MEDS ORDERED: DEXTROSE 50% IN WATER (25GM) 50 ML SYRINGE IV ONE (18:40)
[2021-03-31] MEDS ORDERED: INSULIN REGULAR, HUMAN 100 UNITS/1 ML IV ONE (18:41)
[2021-03-31] MEDS ORDERED: SODIUM CHLORIDE 0.9% 100 ML IV PRN (18:45)
[2021-03-31] MEDS ORDERED: SODIUM POLYSTYRENE 15 GM/60 ML ORAL LIQD PO ONE (18:45)
[2021-03-31] MEDS ORDERED: CALCIUM CHLORIDE 1,000 MG in SODIUM CHLORIDE 0.9% 100 ML IV ONE (19:00)
[2021-03-31] MEDS ORDERED: oxyCODONE /ACETAMINOPHEN 5-325MG TAB PO PRN (22:47)
[2021-03-31] MEDS ORDERED: ACETAMINOPHEN 325 MG TAB PO PRN (22:47)
[2021-03-31] MEDS ORDERED: MORPHINE 2 MG/1 ML INJ IV PRN (22:47)
[2021-03-31] MEDS ORDERED: ONDANSETRON 4 MG/2 ML INJ IV PRN (22:47)
[2021-03-31] MEDS ORDERED: METOCLOPRAMIDE 10 MG/2 ML INJ IV PRN (22:47)
--- NOTE | 2021-03-31 22:53 | History and Physical Report ---
History of Present Illness Date of examination: 03/31/21 Date of admission: 03/31/21 18:49 Chief complaint: Missed hemodialysis for 1 week History of present illness: Patient is 55 years old female with history of end-stage renal disease on hemodialysis. Patient is deaf. Patient is accompanied by her sister who is helping with communication. Sister stated that she did not have dialysis for the whole week. She stated that the dialysis center that she is going to regularly is [facility] at the [place] and they told all their patient to check for COVID-19 and if they do not present a negative test they should not come to the dialysis center. Patient sister stated that she was tested 2 days ago but we did not receive the results yet. She is complaining of mild shortness of breath but no other complaint. - Past Medical History --Previous Medical History?: Yes --Hypertension: Yes --Diabetes: Yes --Renal Disease: Yes (dialysis m/w/f) --Additional medical history: Deaf - Surgical History --Past Surgical History?: Yes --Additional Surgical History: right chest permacath - Social History --Smoking Status: Never Smoker - Medications Home Medications: Home Medications Medication Instructions Recorded Confirmed Last Taken Type carvediloL [Coreg] 25 mg PO BID 02/04/21 02/04/21 Unknown History Cinacalcet [Sensipar] 30 mg PO QDAY 30 Days #30 tablet 02/26/21 Unknown Rx Sevelamer Carbonate [Renvela] 800 mg PO AC tablet 02/26/21 Unknown Rx Venlafaxine [Effexor 37.5mg tab] 37.5 mg PO BID tablet 02/26/21 Unknown Rx hydrALAZINE [Apresoline TAB] 50 mg PO TID 30 Days #90 tablet 02/26/21 Unknown Rx Hydralazine HCl 50 mg PO TID 30 Days #90 tab 03/25/21 Unknown Rx Valsartan [Diovan] 80 mg PO QDAY 30 Days #30 tab 03/25/21 Unknown Rx Venlafaxine HCl [Effexor Xr] 37.5 mg PO QDAY 30 Days #30 tab 03/25/21 Unknown Rx carvediloL [Coreg] 25 mg PO Q12HR 30 Days #60 tablet 03/25/21 Unknown Rx sevelamer HCL [Sevelamer HCl] 800 mg PO TID 30 Days #90 tab 03/25/21 Unknown Rx Review of Systems ROS: Stated complaint: HAVEN'T HAD DIALYSIS Other details as noted in HPI Comment: All other systems reviewed and negative Constitutional: denies: chills, fever Respiratory: shortness of breath. denies: cough Cardiovascular: denies: chest pain, palpitations Gastrointestinal: denies: abdominal pain, nausea, vomiting, diarrhea, constipation, hematemesis, melena, hematochezia Musculoskeletal: denies: back pain Neurological: denies: headache, weakness Medications and Allergies Allergies Allergy/AdvReac Type Severity Reaction Status Date / Time No Known Allergies Allergy Verified 02/04/21 11:23 Home Medications Medication Instructions Recorded Confirmed Last Taken Type carvediloL [Coreg] 25 mg PO BID 02/04/21 02/04/21 Unknown History Cinacalcet [Sensipar] 30 mg PO QDAY 30 Days #30 tablet 02/26/21 Unknown Rx Sevelamer Carbonate [Renvela] 800 mg PO AC tablet 02/26/21 Unknown Rx Venlafaxine [Effexor 37.5mg tab] 37.5 mg PO BID tablet 02/26/21 Unknown Rx hydrALAZINE [Apresoline TAB] 50 mg PO TID 30 Days #90 tablet 02/26/21 Unknown Rx Hydralazine HCl 50 mg PO TID 30 Days #90 tab 03/25/21 Unknown Rx Valsartan [Diovan] 80 mg PO QDAY 30 Days #30 tab 03/25/21 Unknown Rx Venlafaxine HCl [Effexor Xr] 37.5 mg PO QDAY 30 Days #30 tab 03/25/21 Unknown Rx carvediloL [Coreg] 25 mg PO Q12HR 30 Days #60 tablet 03/25/21 Unknown Rx sevelamer HCL [Sevelamer HCl] 800 mg PO TID 30 Days #90 tab 03/25/21 Unknown Rx Active Meds: Active Medications Sodium Chloride (Nacl 0.9%) 100 mls @ 999 mls/hr IV KEV PRN PRN Reason: Hypotension Exam - Constitutional Vitals: Temp Pulse Resp BP Pulse Ox 98 F 62 16 212/95 100 03/31/21 17:26 03/31/21 17:26 03/31/21 17:26 03/31/21 17:26 03/31/21 17:26 General appearance: Present: no acute distress, well-nourished - EENT Eyes: Present: PERRL ENT: hearing intact, clear oral mucosa - Neck Neck: Present: supple, normal ROM - Respiratory Respiratory effort: normal Respiratory: bilateral: CTA - Cardiovascular Heart rate: 78 Rhythm: regular Heart Sounds: Present: S1 & S2. Absent: rub, click - Extremities Extremities: no ischemia, pulses intact, pulses symmetrical, No edema Peripheral Pulses: within normal limits - Abdominal General gastrointestinal: Present: soft, non-tender, non-distended, normal bowel sounds Female genitourinary: Present: normal - Integumentary Integumentary: Present: clear, warm, dry - Musculoskeletal Musculoskeletal: gait normal, strength equal bilaterally - Psychiatric Psychiatric: appropriate mood/affect, intact judgment & insight - Neurologic Neurologic: CNII-XII intact, moves all extremities, other - Allied Health Allied health notes reviewed: nursing, case management Results - Labs CBC & Chem 7: 04/01/21 04:19 04/01/21 04:19 Labs: Laboratory Last Values WBC 8.8 K/mm3 (4.5-11.0) 03/31/21 17:49 RBC 2.97 M/mm3 (3.65-5.03) L 03/31/21 17:49 Hgb 8.1 gm/dl (10.1-14.3) L 03/31/21 17:49 Hct 25.8 % (30.3-42.9) L 03/31/21 17:49 MCV 87 fl (79-97) 03/31/21 17:49 MCH 27 pg (28-32) L 03/31/21 17:49 MCHC 31 % (30-34) 03/31/21 17:49 RDW 18.9 % (13.2-15.2) H 03/31/21 17:49 Plt Count 326 K/mm3 (140-440) 03/31/21 17:49 Lymph % (Auto) 24.2 % (13.4-35.0) 03/31/21 17:49 [place] % (Auto) 3.7 % (0.0-7.3) 03/31/21 17:49 Eos % (Auto) 1.1 % (0.0-4.3) 03/31/21 17:49 Baso % (Auto) 0.9 % (0.0-1.8) 03/31/21 17:49 Lymph # (Auto) 2.1 K/mm3 (1.2-5.4) 03/31/21 17:49 [place] # (Auto) 0.3 K/mm3 (0.0-0.8) 03/31/21 17:49 Eos # (Auto) 0.1 K/mm3 (0.0-0.4) 03/31/21 17:49 Baso # (Auto) 0.1 K/mm3 (0.0-0.1) 03/31/21 17:49 Add Manual Diff Complete 03/31/21 17:49 Seg Neutrophils % 70.1 % (40.0-70.0) H 03/31/21 17:49 Nucleated RBC % Not Reportable 03/31/21 17:49 Seg Neutrophils # 5.9 K/mm3 (1.8-7.7) 03/31/21 17:49 WBC Morphology Not Reportable 03/31/21 17:49 Hypersegmented Neuts Not Reportable 03/31/21 17:49 Hyposegmented Neuts Not Reportable 03/31/21 17:49 Hypogranular Neuts Not Reportable 03/31/21 17:49 Smudge Cells Not Reportable 03/31/21 17:49 Toxic Granulation Not Reportable 03/31/21 17:49 Toxic Vacuolation Not Reportable 03/31/21 17:49 Dohle Bodies Not Reportable 03/31/21 17:49 Pelger-Huet Anomaly Not Reportable 03/31/21 17:49 Cosme Rods Not Reportable 03/31/21 17:49 Platelet Estimate Not Reportable 03/31/21 17:49 Clumped Platelets Not Reportable 03/31/21 17:49 Plt Clumps, EDTA Not Reportable 03/31/21 17:49 Large Platelets Not Reportable 03/31/21 17:49 Giant Platelets Not Reportable 03/31/21 17:49 Platelet Satelliting Not Reportable 03/31/21 17:49 Plt Morphology Comment Not Reportable 03/31/21 17:49 RBC Morphology Not Reportable 03/31/21 17:49 Dimorphic RBCs Not Reportable 03/31/21 17:49 Polychromasia Not Reportable 03/31/21 17:49 Hypochromasia Not Reportable 03/31/21 17:49 Poikilocytosis Not Reportable 03/31/21 17:49 Anisocytosis Not Reportable 03/31/21 17:49 Microcytosis Not Reportable 03/31/21 17:49 Macrocytosis Not Reportable 03/31/21 17:49 Spherocytes Not Reportable 03/31/21 17:49 Pappenheimer Bodies Not Reportable 03/31/21 17:49 Sickle Cells Not Reportable 03/31/21 17:49 Target Cells Not Reportable 03/31/21 17:49 Tear Drop Cells Not Reportable 03/31/21 17:49 Ovalocytes Not Reportable 03/31/21 17:49 Helmet Cells Not Reportable 03/31/21 17:49 [place] Bodies Not Reportable 03/31/21 17:49 Widen Rings Not Reportable 03/31/21 17:49 [place] Cells Not Reportable 03/31/21 17:49 Bite Cells Not Reportable 03/31/21 17:49 Crenated Cell Not Reportable 03/31/21 17:49 Elliptocytes Not Reportable 03/31/21 17:49 Acanthocytes (Spur) Not Reportable 03/31/21 17:49 Rouleaux Not Reportable 03/31/21 17:49 Hemoglobin C Crystals Not Reportable 03/31/21 17:49 Schistocytes Not Reportable 03/31/21 17:49 Malaria parasites Not Reportable 03/31/21 17:49 Jozef Bodies Not Reportable 03/31/21 17:49 Hem Pathologist Commnt Not Reportable 03/31/21 17:49 Sodium 136 mmol/L (137-145) L 03/31/21 17:49 Potassium 7.4 mmol/L (3.6-5.0) H* 03/31/21 17:49 Chloride 94.3 mmol/L (98-107) L 03/31/21 17:49 Carbon Dioxide 14 mmol/L (22-30) L 03/31/21 17:49 Anion Gap 35 mmol/L 03/31/21 17:49 BUN 109 mg/dL (7-17) H 03/31/21 17:49 Creatinine 10.6 mg/dL (0.6-1.2) H 03/31/21 17:49 Estimated GFR 5 ml/min 03/31/21 17:49 BUN/Creatinine Ratio 10 % 03/31/21 17:49 Glucose 103 mg/dL (65-100) H 03/31/21 17:49 Calcium 8.5 mg/dL (8.4-10.2) 03/31/21 17:49 Short CBC 03/31/21 04/01/21 Range/Units 17:49 04:19 WBC 8.8 8.5 (4.5-11.0) K/mm3 Hgb 8.1 L 7.7 L (10.1-14.3) gm/dl Hct 25.8 L 23.8 L (30.3-42.9) % Plt Count 326 308 (140-440) K/mm3 BMP 03/31/21 04/01/21 17:49 04:19 Sodium 136 L 140 Potassium 7.4 H* 4.6 D Chloride 94.3 L 98.7 Carbon Dioxide 14 L 19 L BUN 109 H 62 H Creatinine 10.6 H 6.9 H Glucose 103 H 107 H Calcium 8.5 8.4 Liver Function 04/01/21 Range/Units 04:19 Total Bilirubin 0.30 (0.1-1.2) mg/dL AST 18 (5-40) units/L ALT 31 (7-56) units/L Alkaline Phosphatase 180 H (35-129) units/L Albumin 3.3 L (3.9-5) g/dL Assessment and Plan Advance Directives: Yes (Full code) VTE prophylaxis?: Chemical Plan of care discussed with patient/family: Yes - Patient Problems (1) Volume overload Current Visit: Yes Status: Acute Plan to address problem: Volume overload from missed dialysis Dialysis centers should do the COVID testing regularly They cannot stop hemodialysis because of the COVID test not being there (2) Hyperkalemia Current Visit: Yes Status: Acute Plan to address problem: Treated and patient being taken for hemodialysis Kayexalate given calcium chloride given, calcium gluconate given (3) ESRD needing dialysis Current Visit: Yes Status: Chronic Plan to address problem: Nephrology consulted for emergent hemodialysis (4) Person under investigation for COVID-19 Current Visit: Yes Status: Acute Plan to address problem: Coronavirus PCR in a.m. (5) T2DM (type 2 diabetes mellitus) Current Visit: Yes Status: Chronic Qualifiers: Diabetes mellitus lobsterman insulin use: unspecified jail insulin use status Plan to address problem: Coverage for now Check hemoglobin A1c (6) Hypertension Current Visit: No Status: Chronic Qualifiers: Hypertension type: essential hypertension Qualified Code(s): I10 - Essential (primary) hypertension Plan to address problem: Antihypertensives and adjust medications (7) DVT prophylaxis Current Visit: No Status: Acute Plan to address problem: On anticoagulation and GI prophylaxis (8) Advance care planning Current Visit: Yes Status: Acute Plan to address problem: Disease education conducted, care plan discussed, diagnosis discussed, prognosis discussed. Patient is full code. Patient and family member acknowledges understanding and agreement with care plan. +30 minutes.
[2021-03-31] MEDS ORDERED: CALCIUM GLUCONATE 2,000 MG in SODIUM CHLORIDE 0.9% 100 ML IV ONE (23:40)
[2021-04-01] MEDS ORDERED: hydrALAZINE 20 MG/1 ML INJ ONE (00:49)
[2021-04-01 02:19] VITALS: BP 202/92
[2021-04-01] MEDS: FAMOTIDINE 10 MG TAB PO SCH ×2 (04:43→10:52)
[2021-04-01] MEDS: carvediloL 25 MG TAB PO SCH ×2 (04:43→10:50)
[2021-04-01 04:47] LABS: Hematocrit 23.8 % (30.3-42.9); Hemoglobin 7.7 gm/dl (10.1-14.3); Mean Corpuscular HGB Conc 32 % (30-34); Mean Corpuscular Volume 85 fl (79-97); Platelet Count 308 K/mm3 (140-440); Red Blood Count 2.79 M/mm3 (3.65-5.03); Red Cell Distribution Width 18.4 % (13.2-15.2)
[2021-04-01 05:35] LABS: Basophils % (Manual) 0 % (0.0-1.8); Total Cells Counted 100
[2021-04-01 05:36] LABS: Anisocytosis 2+; Hypochromasia 3+; Ovalocytes Few; Platelet Estimate Consistent w Auto; Poikilocytosis 1+; Schistocytes 1+; Target Cells Few
[2021-04-01 05:42] LABS: Albumin 3.3 g/dL (3.9-5); Calcium 8.4 mg/dL (8.4-10.2)
--- NOTE | 2021-04-01 07:54 | Progress Note ---
Subjective Date of service: 03/31/21 Interval history: Comes with missed dialysis and severe hyperkalemia. Pt agreeable and consents to dialysis. Objective - Vital Signs Vital signs: Vital Signs - 12hr 03/31/21 03/31/21 03/31/21 22:50 23:00 23:15 Temperature 98.9 F Pulse Rate 73 68 69 Respiratory 18 Rate Blood Pressure 219/105 213/103 217/103 O2 Sat by Pulse 99 Oximetry [ Posterior Bilateral] 03/31/21 03/31/21 04/01/21 23:30 23:45 00:00 Temperature Pulse Rate 64 67 63 Respiratory Rate Blood Pressure 222/100 220/107 220/92 O2 Sat by Pulse Oximetry [ Posterior Bilateral] 04/01/21 04/01/21 04/01/21 00:15 00:30 00:45 Temperature Pulse Rate 66 66 66 Respiratory Rate Blood Pressure 225/97 215/98 218/101 O2 Sat by Pulse Oximetry [ Posterior Bilateral] 04/01/21 04/01/21 04/01/21 01:00 01:08 01:15 Temperature Pulse Rate 67 66 66 Respiratory Rate Blood Pressure 208/84 218/101 198/86 O2 Sat by Pulse Oximetry [ Posterior Bilateral] 04/01/21 01:30 Temperature 97.9 F Pulse Rate 68 Respiratory 20 Rate Blood Pressure 202/92 O2 Sat by Pulse 99 Oximetry [ Posterior Bilateral] - Lab 04/01/21 04:19 04/01/21 04:19 Most recent lab results Calcium 8.4 mg/dL (8.4-10.2) 04/01/21 04:19 Medications & Allergies - Medications Allergies/Adverse Reactions: Allergies No Known Allergies Allergy (Verified 02/04/21 11:23) Home Medications: Home Medications Medication Instructions Recorded Confirmed Last Taken Type carvediloL [Coreg] 25 mg PO BID 02/04/21 02/04/21 Unknown History Cinacalcet [Sensipar] 30 mg PO QDAY 30 Days #30 tablet 02/26/21 Unknown Rx Sevelamer Carbonate [Renvela] 800 mg PO AC tablet 02/26/21 Unknown Rx Venlafaxine [Effexor 37.5mg tab] 37.5 mg PO BID tablet 02/26/21 Unknown Rx hydrALAZINE [Apresoline TAB] 50 mg PO TID 30 Days #90 tablet 02/26/21 Unknown Rx Hydralazine HCl 50 mg PO TID 30 Days #90 tab 03/25/21 Unknown Rx Valsartan [Diovan] 80 mg PO QDAY 30 Days #30 tab 03/25/21 Unknown Rx Venlafaxine HCl [Effexor Xr] 37.5 mg PO QDAY 30 Days #30 tab 03/25/21 Unknown Rx carvediloL [Coreg] 25 mg PO Q12HR 30 Days #60 tablet 03/25/21 Unknown Rx sevelamer HCL [Sevelamer HCl] 800 mg PO TID 30 Days #90 tab 03/25/21 Unknown Rx Active Medications: Generic Name Dose Route Start Last Admin Trade Name Freq PRN Reason Stop Dose Admin Acetaminophen 650 mg 03/31/21 22:47 Acetaminophen 325 Mg Tab PO Q4H PRN Pain MILD(1-3)/Fever >100.5/PALOMINO Carvedilol 25 mg 03/31/21 23:00 04/01/21 04:43 Carvedilol 25 Mg Tab PO Not Given Q12HR SHRUTI Cinacalcet 30 mg 04/01/21 10:00 Cinacalcet 30 Mg Tab PO QDAY SHRUTI Famotidine 10 mg 03/31/21 23:00 04/01/21 04:43 Famotidine 10 Mg Tab PO Not Given BID [facility] Heparin Sodium (Porcine) 5,000 unit 04/01/21 10:00 Heparin 5,000 Unit/1 Ml Vial SUB-Q Q12HR [facility] Hydralazine HCl 50 mg 04/01/21 08:00 Hydralazine 25 Mg Tab PO TID [facility] Sodium Chloride 100 mls @ 999 mls/hr 03/31/21 18:45 Nacl 0.9% IV KEV PRN Hypotension Metoclopramide HCl 5 mg 03/31/21 22:47 Metoclopramide 10 Mg/2 Ml Inj IV Q6H PRN Nausea And Vomiting Morphine Sulfate 2 mg 03/31/21 22:47 Morphine 2 Mg/1 Ml Inj IV Q4H PRN Pain, Moderate (4-6) Ondansetron HCl 4 mg 03/31/21 22:47 Ondansetron 4 Mg/2 Ml Inj IV Q8H PRN Nausea And Vomiting Oxycodone/Acetaminophen 1 tab 03/31/21 22:47 Oxycodone /Acetaminophen 5-325mg Tab PO Q6H PRN Pain, Moderate (4-6) Sevelamer Carbonate 800 mg 04/01/21 07:30 Sevelamer Carbonate 800 Mg Tab PO AC SHRUTI Sodium Chloride 10 ml 04/01/21 10:00 Sodium Chloride 0.9% 10 Ml Flush Syringe IV BID SHRUTI Sodium Chloride 10 ml 03/31/21 22:47 Sodium Chloride 0.9% 10 Ml Flush Syringe IV PRN PRN LINE FLUSH Valsartan 80 mg 04/01/21 10:00 Valsartan 40 Mg Tab PO QDAY SHRUTI Venlafaxine HCl 37.5 mg 04/01/21 10:00 Venlafaxine 37.5 Mg Tab PO BID SHRUTI
--- NOTE | 2021-04-01 08:29 | Consultation ---
History of Present Illness - Reason for Consult Consult date: 04/01/21 end stage renal disease - History of Present Illness pt with end stage renal disease on HD three times a week, did not receive dialysis for the last week because she was awaiting negative COVID-19 test, in the ED she was found to have severe hyperkalemia and STAT HD was ordered. Past History Past Medical History: anemia, ESRD Medications and Allergies Allergies Allergy/AdvReac Type Severity Reaction Status Date / Time No Known Allergies Allergy Verified 02/04/21 11:23 Home Medications Medication Instructions Recorded Confirmed Last Taken Type carvediloL [Coreg] 25 mg PO BID 02/04/21 02/04/21 Unknown History Cinacalcet [Sensipar] 30 mg PO QDAY 30 Days #30 tablet 02/26/21 Unknown Rx Sevelamer Carbonate [Renvela] 800 mg PO AC tablet 02/26/21 Unknown Rx Venlafaxine [Effexor 37.5mg tab] 37.5 mg PO BID tablet 02/26/21 Unknown Rx hydrALAZINE [Apresoline TAB] 50 mg PO TID 30 Days #90 tablet 02/26/21 Unknown Rx Hydralazine HCl 50 mg PO TID 30 Days #90 tab 03/25/21 Unknown Rx Valsartan [Diovan] 80 mg PO QDAY 30 Days #30 tab 03/25/21 Unknown Rx Venlafaxine HCl [Effexor Xr] 37.5 mg PO QDAY 30 Days #30 tab 03/25/21 Unknown Rx carvediloL [Coreg] 25 mg PO Q12HR 30 Days #60 tablet 03/25/21 Unknown Rx sevelamer HCL [Sevelamer HCl] 800 mg PO TID 30 Days #90 tab 03/25/21 Unknown Rx Active Meds: Active Medications Acetaminophen (Acetaminophen 325 Mg Tab) 650 mg PO Q4H PRN PRN Reason: Pain MILD(1-3)/Fever >100.5/PALOMINO Carvedilol (Carvedilol 25 Mg Tab) 25 mg PO Q12HR [facility] Last Admin: 04/01/21 04:43 Dose: Not Given Cinacalcet (Cinacalcet 30 Mg Tab) 30 mg PO QDAY [facility] Famotidine (Famotidine 10 Mg Tab) 10 mg PO BID [facility] Last Admin: 04/01/21 04:43 Dose: Not Given Heparin Sodium (Porcine) (Heparin 5,000 Unit/1 Ml Vial) 5,000 unit SUB-Q Q12HR [facility] Hydralazine HCl (Hydralazine 25 Mg Tab) 50 mg PO TID SHRUTI Sodium Chloride (Nacl 0.9%) 100 mls @ 999 mls/hr IV KEV PRN PRN Reason: Hypotension Metoclopramide HCl (Metoclopramide 10 Mg/2 Ml Inj) 5 mg IV Q6H PRN PRN Reason: Nausea And Vomiting Morphine Sulfate (Morphine 2 Mg/1 Ml Inj) 2 mg IV Q4H PRN PRN Reason: Pain, Moderate (4-6) Ondansetron HCl (Ondansetron 4 Mg/2 Ml Inj) 4 mg IV Q8H PRN PRN Reason: Nausea And Vomiting Oxycodone/Acetaminophen (Oxycodone /Acetaminophen 5-325mg Tab) 1 tab PO Q6H PRN PRN Reason: Pain, Moderate (4-6) Sevelamer Carbonate (Sevelamer Carbonate 800 Mg Tab) 800 mg PO AC SHRUTI Sodium Chloride (Sodium Chloride 0.9% 10 Ml Flush Syringe) 10 ml IV BID SHRUTI Sodium Chloride (Sodium Chloride 0.9% 10 Ml Flush Syringe) 10 ml IV PRN PRN PRN Reason: LINE FLUSH Valsartan (Valsartan 40 Mg Tab) 80 mg PO QDAY SHRUTI Venlafaxine HCl (Venlafaxine 37.5 Mg Tab) 37.5 mg PO BID SHRUTI Review of Systems All systems: negative (weakness) Exam - Vital Signs Vital signs: Vital Signs Temp Pulse Resp BP Pulse Ox 98 F 62 16 212/95 100 03/31/21 17:26 03/31/21 17:26 03/31/21 17:26 03/31/21 17:26 03/31/21 17:26 - General Appearance General appearance: well-developed EENT: ATNC, PERRL Neck: Present: neck supple Respiratory: Clear to Ascultation Heart: tachycardia Gastrointestinal: Present: normoactive bowel sounds Integumentary: no rash, warm and dry Neurologic: no focal deficit Musculoskeletal: Present: other Results - Lab Results 04/01/21 04:19 04/01/21 04:19 Most recent lab results Calcium 8.4 mg/dL (8.4-10.2) 04/01/21 04:19 Assessment and Plan ESRD on HD Hyperkalemia Anemia in CKD HTN Secondary hyperparathyroidism STAT HD ordered by Dr Jayda Bustillos K was 4.6 will assess dialysis needs daily Renally dose meds strcit I&O
[2021-04-01] MEDS ORDERED: HEPARIN 5,000 UNIT/1 ML VIAL SUB-Q SCH (10:00)
[2021-04-01] MEDS ORDERED: CINACALCET 30 MG TAB PO SCH (10:00)
[2021-04-01] MEDS ORDERED: VALSARTAN 40 MG TAB PO SCH (10:00)
[2021-04-01] MEDS ORDERED: VENLAFAXINE 37.5 MG TAB PO SCH (10:00)
[2021-04-01] MEDS: SEVELAMER CARBONATE 800 MG TAB PO SCH ×2 (10:50→16:29)
[2021-04-01] MEDS: hydrALAZINE 25 MG TAB PO SCH ×2 (10:50→16:29)
--- NOTE | 2021-04-01 20:02 | Discharge Summary ---
Providers - Providers Date of Admission: 03/31/21 18:49 Date of discharge: 04/01/21 Attending physician: DIMITRI LYNCH 03/31/21 18:46 Consult to Physician [CONS] Stat Comment: Consulting Provider: ROCHELLE DIAZ Physician Instructions: Reason For Exam: End-stage renal disease needing dialysis, acute hy Primary care physician: S[employer]IOR [employer] SAL[employer] REPRESENTATIVE Hospitalization Condition: Stable Hospital course: Patient is 55 years old female with history of end-stage renal disease on hemodialysis. Patient is deaf. Patient is accompanied by her sister who is helping with communication. Sister stated that she did not have dialysis for the whole week. She stated that the dialysis center that she is going to regularly is [facility] [place] and they told all their patient to check for COVID-19 and if they do not present a negative test they should not come to the dialysis center. Patient sister stated that she was tested 2 days ago but we did not receive the results yet. She is complaining of mild shortness of breath but no other complaint. Assessment and Plan Advance Directives: Yes (Full code) VTE prophylaxis?: Chemical Plan of care discussed with patient/family: Yes - Patient Problems (1) Volume overload Current Visit: Yes Status: Acute Plan to address problem: Corrected (2) Hyperkalemia Current Visit: Yes Status: Acute Plan to address problem: Corrected (3) ESRD needing dialysis Current Visit: Yes Status: Chronic Plan to address problem: Had HD (4) Person under investigation for COVID-19 Current Visit: Yes Status: Acute Plan to address problem: Coronavirus PCR in a.m. (5) T2DM (type 2 diabetes mellitus) Current Visit: Yes Status: Chronic Qualifiers: Diabetes mellitus buttermaker insulin use: unspecified retirement insulin use status Plan to address problem: Coverage for now Check hemoglobin A1c (6) Hypertension Current Visit: No Status: Chronic Qualifiers: Hypertension type: essential hypertension Qualified Code(s): I10 - Essential (primary) hypertension Plan to address problem: Antihypertensives and adjust medications (7) DVT prophylaxis Current Visit: No Status: Acute Plan to address problem: On anticoagulation and GI prophylaxis (8) Advance care planning Current Visit: Yes Status: Acute Plan to address problem: Disease education conducted, care plan discussed, diagnosis discussed, prognosis discussed. Patient is full code. Patient and family member acknowledges understanding and agreement with care plan. +30 minutes. Disposition: HOME / SELF CARE / HOMELESS Final Discharge Diagnosis (Prints w/discharge instructions): Hyperkalemia. ESRD on HD. HTN. Volume overload Time spent for discharge: 35 minutes - Discharge Diagnoses (1) Volume overload Status: Acute (2) Hyperkalemia Status: Acute (3) ESRD needing dialysis Status: Chronic (4) Person under investigation for COVID-19 Status: Acute (5) T2DM (type 2 diabetes mellitus) Status: Chronic Qualifiers: Diabetes mellitus retirement insulin use: unspecified buttermaker insulin use status (6) Hypertension Status: Chronic Qualifiers: Hypertension type: essential hypertension (7) DVT prophylaxis Status: Acute (8) Advance care planning Status: Acute Core Measure Documentation - Palliative Care Palliative Care/ Comfort Measures: Not Applicable - Core Measures Any of the following diagnoses?: none Exam - Constitutional Vitals: Temp Pulse Resp BP Pulse Ox 97.9 F 68 20 202/92 99 04/01/21 01:30 04/01/21 01:30 04/01/21 01:30 04/01/21 01:30 04/01/21 01:30 General appearance: Present: no acute distress, well-nourished - EENT Eyes: Present: PERRL ENT: hearing intact, clear oral mucosa - Neck Neck: Present: supple, normal ROM - Respiratory Respiratory effort: normal Respiratory: bilateral: CTA - Cardiovascular Heart rate: 78 Rhythm: regular Heart Sounds: Present: S1 & S2. Absent: rub, click - Extremities Extremities: no ischemia, pulses symmetrical, No edema Peripheral Pulses: within normal limits - Abdominal General gastrointestinal: Present: soft, non-tender, non-distended, normal bowel sounds Female genitourinary: Present: normal - Integumentary Integumentary: Present: clear, warm, dry - Musculoskeletal Musculoskeletal: gait normal, strength equal bilaterally - Psychiatric Psychiatric: appropriate mood/affect, intact judgment & insight - Neurologic Neurologic: CNII-XII intact, moves all extremities - Allied Health Allied health notes reviewed: nursing, case management Plan Activity: no restrictions Diet: renal Follow up with: NATALIE KINCAID MD [Primary Care Provider] - 7 Days ROCHELLE DIAZ MD [Staff Physician] - 7 Days
== END 2021-04-01 20:27 | disposition home or self-care (01) ==
LOC: ED 14:46 → 4A 18:49
PROVIDERS: ADMIT Internal Medicine; ATTEND Internal Medicine
DX: E87.70 Fluid overload, unspecified (principal); I12.0 Hypertensive chronic kidney disease with stage 5 chronic kidney disease or end stage renal disease; N18.6 End stage renal disease; E11.22 Type 2 diabetes mellitus with diabetic chronic kidney disease; D63.1 Anemia in chronic kidney disease; E87.5 Hyperkalemia; N25.81 Secondary hyperparathyroidism of renal origin; H91.90 Unspecified hearing loss, unspecified ear; Z99.2 Dependence on renal dialysis; Z79.899 Other long term (current) drug therapy; Z98.890 Other specified postprocedural states
CPT/HCPCS: 36415; 71046; 80048; 80053; 83036; 85025; 96365; 96372; 96375; 99291; G0257; G0378; J0360; J1644; J3490; 85007

== ENCOUNTER 2021-04-07 11:10 | Outpatient (CLI) | payer MEDICARE | END 2021-04-07 11:11 | disposition home or self-care (01) | LOC: WOUND 11:10 | PROVIDERS: ATTEND Surgery | DX: E11.621 Type 2 diabetes mellitus with foot ulcer (principal); L89.610 Pressure ulcer of right heel, unstageable; L97.411 Non-pressure chronic ulcer of right heel and midfoot limited to breakdown of skin; L89.620 Pressure ulcer of left heel, unstageable; L97.422 Non-pressure chronic ulcer of left heel and midfoot with fat layer exposed; E11.22 Type 2 diabetes mellitus with diabetic chronic kidney disease; N18.6 End stage renal disease; Z99.2 Dependence on renal dialysis; Z87.891 Personal history of nicotine dependence ==

== ENCOUNTER 2021-05-07 10:03 | Outpatient (CLI) | payer MEDICARE ==
--- NOTE | 2021-05-07 16:06 | Vascular Lab Report ---
DUPLEX DOPPLER LOWER EXTREMITY ARTERIAL, BILATERAL INDICATION / CLINICAL INFORMATION: diabetes with foot ulcer. TECHNIQUE: Arterial duplex examination of both lower extremities performed using B-mode, color flow a nd spectral Doppler assessment. FINDINGS: RIGHT: Common Femoral Artery: PSV 91 cm/sec. Biphasic waveform. Proximal SFA: PSV 79 cm/sec. Triphasic waveform. Mid SFA: PSV 80 cm/sec. Triphasic waveform. Distal SFA: PSV 71 cm/sec. Triphasic waveform. Popliteal artery: PSV 65 cm/sec. Triphasic waveform. Posterior tibial artery: PSV 21 cm/sec. Monophasic waveform. Dorsalis Pedis Artery: PSV 47 cm/sec. Triphasic waveform. LEFT: Common Femoral Artery: PSV 87 cm/sec. Triphasic waveform. Proximal SFA: PSV 93 cm/sec. Biphasic waveform. Mid SFA: PSV 91 cm/sec. Biphasic waveform. Distal SFA: PSV 68 cm/sec. Biphasic waveform. Popliteal artery: PSV 91 cm/sec. Biphasic waveform. Posterior tibial artery: PSV 29 cm/sec. Monophasic waveform. Dorsalis Pedis Artery: PSV 56 cm/sec. Monophasic waveform. Right MARGAUX: Not calculated. Left MARGAUX: Not calculated. IMPRESSION: 1. Multifocal atherosclerotic disease is present throughout both lower extremities. Monophasic wavefo piotr are noted within bilateral posterior tibial arteries and within the left dorsalis pedis artery. T hese findings likely indicate moderate upstream stenoses in each respective segment. Ankle-Brachial Index (MARGAUX): - Calcified arteries > 1.4 - Normal = 0.9-1.4 - Mild PAD = 0.7-0.89 - Moderate PAD = 0.51-0.69 - Severe PAD < 0.5 Doppler Waveform: - Triphasic is normal. - Biphasic is abnormal if clear transition from triphasic signal along vascular tree. - Monophasic is abnormal. Scribed by: Ynes Retanaox RDMS, RVT, RMSKS Scribed: 05/07/2021 2:14 PM I have reviewed the images, agree with this report, and edited this report as needed. Signer Name: Rad Rowe MD Signed: 05/07/2021 4:02 PM Workstation Name: [id number]
== END 2021-05-07 10:04 | disposition home or self-care (01) ==
LOC: VAS 10:03
PROVIDERS: ATTEND Surgery
DX: I70.203 Unspecified atherosclerosis of native arteries of extremities, bilateral legs (principal); E08.621 Diabetes mellitus due to underlying condition with foot ulcer
CPT/HCPCS: 93925

== ENCOUNTER 2021-05-12 10:54 | Outpatient (CLI) | payer MEDICARE ==
[2021-05-12] MEDS ORDERED: SILVER NITRATE APPLICATOR 1 EA TP ONE (17:00)
[2021-05-12] MEDS ORDERED: LIDOCAINE (4%) 40 MG/ML TOPICAL SOLN 50 ML BOTTLE TP ONE (17:00)
== END 2021-05-12 10:55 | disposition home or self-care (01) ==
LOC: WOUND 10:54
PROVIDERS: ATTEND Surgery
DX: E11.621 Type 2 diabetes mellitus with foot ulcer (principal); L89.610 Pressure ulcer of right heel, unstageable; L97.412 Non-pressure chronic ulcer of right heel and midfoot with fat layer exposed; L89.620 Pressure ulcer of left heel, unstageable; L97.422 Non-pressure chronic ulcer of left heel and midfoot with fat layer exposed; E11.622 Type 2 diabetes mellitus with other skin ulcer; L89.152 Pressure ulcer of sacral region, stage 2; L98.491 Non-pressure chronic ulcer of skin of other sites limited to breakdown of skin; L84 Corns and callosities; E11.22 Type 2 diabetes mellitus with diabetic chronic kidney disease; N18.6 End stage renal disease; Z87.891 Personal history of nicotine dependence; Z99.2 Dependence on renal dialysis; Z79.899 Other long term (current) drug therapy

== ENCOUNTER 2021-06-02 11:16 | Outpatient (CLI) | payer MEDICARE ==
[2021-06-02] MEDS ORDERED: LIDOCAINE (4%) 40 MG/ML TOPICAL SOLN 50 ML BOTTLE TP ONE (18:55)
== END 2021-06-02 11:17 | disposition home or self-care (01) ==
LOC: WOUND 11:16
PROVIDERS: ATTEND Surgery
DX: E11.621 Type 2 diabetes mellitus with foot ulcer (principal); L97.422 Non-pressure chronic ulcer of left heel and midfoot with fat layer exposed; L97.412 Non-pressure chronic ulcer of right heel and midfoot with fat layer exposed; L84 Corns and callosities; L89.620 Pressure ulcer of left heel, unstageable; L89.610 Pressure ulcer of right heel, unstageable; L89.152 Pressure ulcer of sacral region, stage 2; E11.22 Type 2 diabetes mellitus with diabetic chronic kidney disease; N18.6 End stage renal disease; Z99.2 Dependence on renal dialysis; Z87.891 Personal history of nicotine dependence; Z79.899 Other long term (current) drug therapy

== ENCOUNTER 2021-08-07 08:52 | Inpatient (IN) | payer MEDICARE ==
[2021-08-07 10:14] LABS: Basophils % (Auto) 0.6 % (0.0-1.8); Eosinophils % (Auto) 0.1 % (0.0-4.3); Hematocrit 31.4 % (30.3-42.9); Hemoglobin 9.6 gm/dl (10.1-14.3); Lymphocytes # (Auto) 1.2 K/mm3 (1.2-5.4); Lymphocytes % (Auto) 16.4 % (13.4-35.0); Mean Corpuscular HGB Conc 30 % (30-34); Mean Corpuscular Volume 77 fl (79-97); Monocytes # (Auto) 0.3 K/mm3 (0.0-0.8); Monocytes % (Auto) 4.1 % (0.0-7.3); Platelet Count 299 K/mm3 (140-440)
[2021-08-07] MEDS ORDERED: oxyCODONE /ACETAMINOPHEN 5-325MG TAB PO ONE ×2 (10:56→21:25)
--- NOTE | 2021-08-07 11:00 | Emergency Department Report ---
ED General Adult HPI - General Chief complaint: Weakness Stated complaint: weakness Time Seen by Provider: 08/07/21 10:48 Source: patient, family, RN notes reviewed, old records reviewed Mode of arrival: Ambulatory Limitations: No Limitations - History of Present Illness Initial comments: The patient was evaluated in the emergency department for symptoms described in the history of present illness. He/she was evaluated in the context of the global COVID-19 pandemic, which necessitated consideration that the patient might be at risk for infection with the virus that causes COVID-19. Institutional protocols and algorithms that pertain to the evaluation of patients at risk for COVID-19 are in a state of rapid change based on information released by regulatory bodies including the CDC and federal and state organizations. These policies and algorithms were followed during the patient's care in the emergency department. Please note that these policies, procedures and recommendations changed on a rapid basis. The patient is hearing impaired, and request that daughter provide history of present illness provides consent. Nephrology: Dr. Cedillo Past medical history: End-stage renal disease on hemodialysis, Wednesday, , Wednesday, peripheral vascular disease, heel ulcers, status post recent atherectomy and angioplasty of the right proximal tibial artery The patient presents to the ER today with a complaint of nontraumatic left fin gertip pain. It is on the left pointer finger. It has been there for couple days to couple weeks as per daughter. Patient also missed hemodialysis over the weekend. As per daughter, no fever, vomiting, diarrhea. Pain increases with palpation and range of motion. Decreases with rest. Patient and daughter are unable to recall all the patient's home medications. -: days(s) Location: left, upper extremity Improves with: rest Worsens with: movement - Related Data Previous Rx's Medication Instructions Recorded Last Taken Type Cinacalcet [Sensipar] 30 mg PO QDAY 30 Days #30 tablet 02/26/21 07/06/21 Rx Hydralazine HCl 50 mg PO TID 30 Days #90 tab 03/25/21 07/06/21 Rx Valsartan [Diovan] 80 mg PO QDAY 30 Days #30 tab 03/25/21 07/07/21 Rx sevelamer HCL [Sevelamer HCl] 800 mg PO TID 30 Days #90 tab 03/25/21 07/06/21 Rx Acetaminophen [Acetaminophen TAB] 650 mg PO Q4H PRN tablet 04/01/21 07/06/21 Rx carvediloL [Coreg] 25 mg PO Q12HR tablet 04/01/21 07/06/21 Rx Clopidogrel [Plavix] 75 mg PO QDAY #90 tablet 06/24/21 07/06/21 Rx Pentoxifylline 400 mg PO DAILY #90 06/24/21 07/06/21 Rx Furosemide [Lasix TAB] 20 mg PO QDAY #30 tablet 06/25/21 07/06/21 Rx ISOSORBIDE MONOnitrate [Imdur ER] 30 mg PO QDAY #30 tablet 06/25/21 07/06/21 Rx Venlafaxine [Effexor 37.5mg tab] 37.5 mg PO BID #30 tablet 06/25/21 07/06/21 Rx Apixaban [Eliquis] 2.5 mg PO BID #180 07/07/21 Unknown Rx Pantoprazole [Protonix TAB] 40 mg PO BID #180 tablet 07/07/21 Unknown Rx ALPRAZolam [Xanax TAB] 0.25 mg PO Q8H PRN #12 tablet 07/09/21 Unknown Rx NIFEdipine XL [Procardia Xl] 30 mg PO Q12HR #60 tablet 07/09/21 08/07/21 23:00 Rx oxyCODONE /ACETAMINOPHEN [Percocet 1 tab PO Q8H PRN #15 tablet 07/09/21 Unknown Rx 5/325 mg] Allergies Allergy/AdvReac Type Severity Reaction Status Date / Time No Known Allergies Allergy Verified 06/25/21 13:05 ED Review of Systems ROS: Stated complaint: FINGER PAIN Other details as noted in HPI Comment: Per family Constitutional: denies: fever Respiratory: denies: wheezing Cardiovascular: denies: chest pain, syncope Gastrointestinal: denies: nausea, vomiting, diarrhea Genitourinary: denies: dysuria Musculoskeletal: arthralgia, myalgia Skin: lesions, change in color Neurological: weakness (Generalized) ED Past Medical Hx - Past Medical History Previous Medical History?: Yes Hx Hypertension: Yes Hx Heart Attack/AMI: No Hx Congestive Heart Failure: No Hx Diabetes: Yes Hx Deep Vein Thrombosis: No Hx Liver Disease: No Hx Renal Disease: Yes (dialysis //Wed) Hx Kidney Stones: No Hx Asthma: No Hx COPD: No Additional medical history: Deaf - Surgical History Past Surgical History?: Yes Hx Coronary Stent: No Hx Pacemaker: No Hx Internal Defibrillator: No Additional Surgical History: right chest permacath - Social History Smoking Status: Never Smoker - Medications Home Medications: Home Medications Medication Instructions Recorded Confirmed Last Taken Type Cinacalcet [Sensipar] 30 mg PO QDAY 30 Days #30 tablet 02/26/21 08/08/21 07/06/21 Rx Hydralazine HCl 50 mg PO TID 30 Days #90 tab 03/25/21 08/08/21 07/06/21 Rx Valsartan [Diovan] 80 mg PO QDAY 30 Days #30 tab 03/25/21 08/08/21 07/07/21 Rx sevelamer HCL [Sevelamer HCl] 800 mg PO TID 30 Days #90 tab 03/25/21 08/08/21 07/06/21 Rx Acetaminophen [Acetaminophen TAB] 650 mg PO Q4H PRN tablet 04/01/21 08/08/21 07/06/21 Rx carvediloL [Coreg] 25 mg PO Q12HR tablet 04/01/21 08/08/21 07/06/21 Rx Clopidogrel [Plavix] 75 mg PO QDAY #90 tablet 06/24/21 08/08/21 07/06/21 Rx Pentoxifylline 400 mg PO DAILY #90 06/24/21 08/08/21 07/06/21 Rx Furosemide [Lasix TAB] 20 mg PO QDAY #30 tablet 06/25/21 08/08/21 07/06/21 Rx ISOSORBIDE MONOnitrate [Imdur ER] 30 mg PO QDAY #30 tablet 06/25/21 08/08/21 07/06/21 Rx Venlafaxine [Effexor 37.5mg tab] 37.5 mg PO BID #30 tablet 06/25/21 08/08/21 07/06/21 Rx Apixaban [Eliquis] 2.5 mg PO BID #180 07/07/21 08/08/21 Unknown Rx Pantoprazole [Protonix TAB] 40 mg PO BID #180 tablet 07/07/21 08/08/21 Unknown R x ALPRAZolam [Xanax TAB] 0.25 mg PO Q8H PRN #12 tablet 07/09/21 08/08/21 Unknown Rx NIFEdipine XL [Procardia Xl] 30 mg PO Q12HR #60 tablet 07/09/21 08/08/21 08/07/21 23:00 Rx oxyCODONE /ACETAMINOPHEN [Percocet 1 tab PO Q8H PRN #15 tablet 07/09/21 08/08/21 Unknown Rx 5/325 mg] ED Physical Exam - General Limitations: Physical Limitation General appearance: alert, anxious - Head Head exam: Present: atraumatic, normocephalic - Eye Eye exam: Present: normal appearance, EOMI. Absent: nystagmus - ENT ENT exam: Present: normal exam, normal orophraynx, mucous membranes moist - Neck Neck exam: Present: normal inspection, full ROM. Absent: tenderness, meningismus - Respiratory Respiratory exam: Present: decreased breath sounds. Absent: respiratory distress - Cardiovascular Cardiovascular Exam: Present: regular rate, normal rhythm, normal heart sounds, JVD. Absent: bradycardia, tachycardia, irregular rhythm, systolic murmur, diastolic murmur, rubs, gallop - GI/Abdominal GI/Abdominal exam: Present: soft. Absent: distended, tenderness, guarding, rebound, rigid, pulsatile mass - Extremities Exam Extremities exam: Present: full ROM (The long bones are nontender. The pelvis is stable. The muscular compartments are soft), tenderness (The left pointer finger has a black ulceration and is tender.), other (1+ femoral pulses appreciated bilaterally. 1+ radial pulses appreciated bilaterally.). Absent: normal inspection (There is a black ulceration noted to the left great toe) - Back Exam Back exam: Present: normal inspection. Absent: tenderness, CVA tenderness (R), CVA tenderness (L), paraspinal tenderness, vertebral tenderness - Neurological Exam Neurological exam: Present: alert, other (There is no facial droop. The tongue is midline. EOMI. 5/5 strength in 4 extremities) - Psychiatric Psychiatric exam: Present: anxious - Skin Skin exam: Present: warm, other (Black tissue/necrosis noted to the left fin gertip, and left great toe.) ED Course Vital Signs 08/07/21 08/07/21 08/07/21 09:30 10:49 10:59 Temperature 97.4 F L Pulse Rate 75 75 78 Respiratory 16 18 18 Rate Blood Pressure Blood Pressure 168/87 175/68 [Left] O2 Sat by Pulse 100 99 Oximetry O2 Sat by Pulse Oximetry [ Bilateral] 08/07/21 08/07/21 08/07/21 11:01 11:31 12:01 Temperature Pulse Rate 74 77 Respiratory 14 18 12 Rate Blood Pressure 176/89 166/87 Blood Pressure [Left] O2 Sat by Pulse 99 99 96 Oximetry O2 Sat by Pulse Oximetry [ Bilateral] 08/07/21 08/07/21 08/07/21 12:15 12:31 12:45 Temperature Pulse Rate 75 71 79 Respiratory 11 L 16 14 Rate Blood Pressure 166/87 166/87 166/87 Blood Pressure [Left] O2 Sat by Pulse 98 99 70 L Oximetry O2 Sat by Pulse Oximetry [ Bilateral] 08/07/21 08/07/21 08/07/21 12:46 13:01 13:15 Temperature Pulse Rate 78 77 Respiratory 12 10 L Rate Blood Pressure 180/93 180/93 Blood Pressure [Left] O2 Sat by Pulse 100 96 96 Oximetry O2 Sat by Pulse Oximetry [ Bilateral] 08/07/21 08/07/21 08/07/21 13:54 15:15 15:23 Temperature Pulse Rate 87 75 73 Respiratory 18 18 12 Rate Blood Pressure 172/96 172/96 Blood Pressure 173/65 [Left] O2 Sat by Pulse 99 98 99 Oximetry O2 Sat by Pulse Oximetry [ Bilateral] 08/07/21 08/07/21 08/07/21 15:31 15:41 15:51 Temperature Pulse Rate 74 73 77 Respiratory 16 11 L 12 Rate Blood Pressure 172/96 172/96 168/102 Blood Pressure [Left] O2 Sat by Pulse 93 97 97 Oximetry O2 Sat by Pulse Oximetry [ Bilateral] 08/07/21 08/07/21 08/07/21 16:01 17:00 17:15 Temperature 97.6 F Pulse Rate 78 73 71 Respiratory 15 18 Rate Blood Pressure 168/102 170/102 158/87 Blood Pressure [Left] O2 Sat by Pulse 84 Oximetry O2 Sat by Pulse 98 Oximetry [ Bilateral] 08/07/21 08/07/21 08/07/21 17:30 17:45 18:00 Temperature Pulse Rate 74 74 74 Respiratory Rate Blood Pressure 167/91 166/90 157/91 Blood Pressure [Left] O2 Sat by Pulse Oximetry O2 Sat by Pulse Oximetry [ Bilateral] 08/07/21 08/07/2108/07/22 18:15 18:30 18:45 Temperature Pulse Rate 78 75 76 Respiratory Rate Blood Pressure 159/91 158/86 165/92 Blood Pressure [Left] O2 Sat by Pulse Oximetry O2 Sat by Pulse Oximetry [ Bilateral] 08/07/21 08/07/21 08/07/21 19:00 19:15 19:30 Temperature Pulse Rate 71 82 76 Respiratory Rate Blood Pressure 156/91 170/97 169/93 Blood Pressure [Left] O2 Sat by Pulse Oximetry O2 Sat by Pulse Oximetry [ Bilateral] 08/07/21 08/07/21 08/07/21 19:45 20:00 20:30 Temperature 98.0 F Pulse Rate 74 76 78 Respiratory 18 Rate Blood Pressure 168/90 169/92 176/96 Blood Pressure [Left] O2 Sat by Pulse Oximetry O2 Sat by Pulse 100 Oximetry [ Bilateral] 08/07/21 08/07/21 08/07/21 21:17 21:20 21:31 Temperature Pulse Rate 78 84 82 Respiratory 14 15 14 Rate Blood Pressure 168/102 171/84 171/84 Blood Pressure [Left] O2 Sat by Pulse 71 L 85 98 Oximetry O2 Sat by Pulse Oximetry [ Bilateral] 08/07/21 08/07/21 08/07/21 21:41 21:43 21:50 Temperature 98 F Pulse Rate 86 87 87 Respiratory 18 18 10 L Rate Blood Pressure 171/84 188/100 Blood Pressure 171/84 [Left] O2 Sat by Pulse 99 100 100 Oximetry O2 Sat by Pulse Oximetry [ Bilateral] 08/07/21 08/07/21 08/07/21 22:01 22:11 22:20 Temperature Pulse Rate 81 85 85 Respiratory 10 L 14 10 L Rate Blood Pressure 188/100 188/100 188/102 Blood Pressure [Left] O2 Sat by Pulse 100 100 99 Oximetry O2 Sat by Pulse Oximetry [ Bilateral] 08/07/21 08/07/21 08/07/21 22:31 22:41 22:50 Temperature Pulse Rate 86 82 85 Respiratory 10 L 13 12 Rate Blood Pressure 188/102 188/102 182/103 Blood Pressure [Left] O2 Sat by Pulse 100 100 100 Oximetry O2 Sat by Pulse Oximetry [ Bilateral] 08/07/21 08/07/21 08/07/21 23:00 23:01 23:11 Temperature Pulse Rate 87 84 86 Respiratory 11 L 11 L Rate Blood Pressure 171/84 182/103 182/103 Blood Pressure [Left] O2 Sat by Pulse 100 99 Oximetry O2 Sat by Pulse Oximetry [ Bilateral] 08/07/21 23:14 Temperature Pulse Rate Respiratory Rate Blood Pressure Blood Pressure [Left] O2 Sat by Pulse 96 Oximetry O2 Sat by Pulse Oximetry [ Bilateral] - Reevaluation(s) Reevaluation #1: 08/07/21 11:23 Differential diagnosis, including but not limited to: Peripheral artery disease, skin necrosis, end-stage renal disease, hyperkalemia, azotemia, uremia, metabolic acidosis, noncompliance Assessment and plan: 56-year-old female with known peripheral artery disease, likely presenting with symptomatic peripheral artery disease in her left upper extremity/hand. Do not appreciate redness, pus, streaking. Discussed the patient's history, physical, clinical impression with covering vascular surgery, Dr. Llamas. He will follow in consultation. We will treat with Percocet for pain, and obtain x-rays of the left foot, and left hand. Patient is found to be hyperkalemic, with azotemia, uremia, and metabolic acidosis. She requires emergent hemodialysis. Calcium gluconate ordered, awaiting callback from covering nephrology. Patient will require admission to the medical service. Discussed this with patient's daughter, who in turn related to the patient. They are agreeable to the plan of care. Awaiting callback from nephrology 08/07/21 11:53 Discussed the patient's history, physical, laboratory studies and clinical impression with covering nephrology, Dr. Sonu Rod He will arrange for emergent hemodialysis, but is otherwise in agreement with administration of calcium gluconate. Awaiting callback from hospital physician to arrange admission Reevaluation #2: 08/07/21 11:59 Dr Caitlin Vizcarra to admit to [facility] Reevaluation #3: 08/07/21 12:56 Patient having difficulty tolerating arterial duplex study. Multiple doses of pain medication were ordered. Also, had extensively discussed with daughter at the bedside need for acquisition of upper extremity duplex study. However, patient not laying still or able to cooperate with computer hardware technician study, therefore, computer hardware technician not able to complete upper extremity evaluation. I will defer to the inpatient team to follow-up and manage. Patient awaiting hemodialysis. ED Medical Decision Making - Lab Data Result diagrams: 08/08/21 04:40 08/08/21 04:40 Vital Signs 08/07/21 08/07/21 09:30 10:59 Temperature 97.4 F L Pulse Rate 75 78 Respiratory 16 18 Rate Blood Pressure 168/87 175/68 [Left] O2 Sat by Pulse 100 99 Oximetry Lab Results 08/07/21 08/07/21 08/07/21 Range/Units 09:45 09:45 09:45 WBC 7.4 (4.5-11.0) K/mm3 RBC 4.10 (3.65-5.03) M/mm3 Hgb 9.6 L (10.1-14.3) gm/dl Hct 31.4 (30.3-42.9) % MCV 77 L (79-97) fl MCH 23 L (28-32) pg MCHC 30 (30-34) % RDW 24.0 H (13.2-15.2) % Plt Count 299 (140-440) K/mm3 Lymph % (Auto) 16.4 (13.4-35.0) % [place] % (Auto) 4.1 (0.0-7.3) % Eos % (Auto) 0.1 (0.0-4.3) % Baso % (Auto) 0.6 (0.0-1.8) % Lymph # (Auto) 1.2 (1.2-5.4) K/mm3 [place] # (Auto) 0.3 (0.0-0.8) K/mm3 Eos # (Auto) 0.0 (0.0-0.4) K/mm3 Baso # (Auto) 0.0 (0.0-0.1) K/mm3 Seg Neutrophils % 78.8 H (40.0-70.0) % Seg Neutrophils # 5.8 (1.8-7.7) K/mm3 Sodium 136 L (137-145) mmol/L Potassium 6.7 H* (3.6-5.0) mmol/L Chloride 95.5 L (98-107) mmol/L Carbon Dioxide 15 L (22-30) mmol/L Anion Gap 32 mmol/L BUN 104 H (7-17) mg/dL Creatinine 10.6 H (0.6-1.2) mg/dL Estimated GFR 5 ml/min BUN/Creatinine Ratio 10 % Glucose 75 (65-100) mg/dL Calcium 10.0 (8.4-10.2) mg/dL Phosphorus 12.20 H (2.5-4.5) mg/dL Magnesium 2.40 H (1.7-2.3) mg/dL - EKG Data -: EKG Interpreted by Ut EKG shows normal: sinus rhythm Rate: normal - EKG Data 08/07/21 11:22 The EKG is interpreted at 10: 45 Sinus rhythm, rate 76 bpm. Left axis deviation, left anterior fascicular block, low voltage in lateral leads, QTC 4 5 2 ms. Abnormal EKG. Poor R wave progression. This is not a STEMI. - Radiology Data Radiology results: report reviewed, image reviewed LEFT HAND 3 VIEWS INDICATION: left hand pain ulceration. COMPARISON: None. IMPRESSION: No acute osseous abnormality or significant joint pathology is detected. There are diffuse soft tissue vascular calcifications consistent with peripheral arterial disease. There is suggestion of shallow skin ulceration on the dorsum of the hand. LEFT FOOT 3 VIEWS INDICATION: Left foot pain, ulceration. COMPARISON: None. IMPRESSION: Slightly limited exam by nonstandard images. No acute osseous abnormality or significant joint pathology is detected. There are diffuse soft tissue vascular calcifications consistent with peripheral vascular disease. The soft tissues are edematous. Signer Name: Bret Mccabe Jr, MD Signed: 08/07/2021 11:05 AM Workstation Name: [id number] DUPLEX DOPPLER LOWER EXTREMITY ARTERIAL, BILATERAL INDICATION / CLINICAL INFORMATION: PAD, left foot ulceration. TECHNIQUE: Arterial duplex examination of both lower extremities performed using B-mode, color flow and spectral Doppler assessment. FINDINGS: RIGHT: Common Femoral Artery: PSV 60 cm/sec. Biphasic waveform. Proximal SFA: PSV 52 cm/sec. Biphasic waveform. Mid SFA: PSV 46 cm/sec. Biphasic waveform. Distal SFA: PSV 38 cm/sec. Biphasic waveform. Popliteal Artery: PSV 23 cm/sec. Monophasic waveform. Posterior Tibial Artery: PSV 66 cm/sec. Biphasic waveform. Dorsalis Pedis Artery: PSV 34 cm/sec. Monophasic waveform. LEFT: Common Femoral Artery: PSV 56 cm/sec. Biphasic waveform. Proximal SFA: PSV 69 cm/sec. Biphasic waveform. Mid SFA: PSV 51 cm/sec. Biphasic waveform. Distal SFA: PSV 41 cm/sec. Monophasic waveform. Popliteal Artery: PSV 43 cm/sec. Biphasic waveform. Posterior Tibial Artery: Not measured secondary to patient cooperation. Dorsalis Pedis Artery: Not measured secondary to patient cooperation. ADDITIONAL FINDINGS: None. RIGHT MARGAUX: Not measured LEFT MARGAUX: Not measured IMPRESSION: 1. Abnormal waveforms in the right popliteal artery and dorsalis pedis artery and in the left distal superficial femoral artery. These findings suggest moderate peripheral vascular disease. The left posterior tibial artery and dorsalis pedis artery was not evaluated secondary to patient cooperation. Ankle-Brachial Index (MARGAUX): - Calcified arteries > 1.4 - Normal = 0.9-1.4 - Mild PAD = 0.7-0.89 - Moderate PAD = 0.51-0.69 - Severe PAD < 0.5 Doppler Waveform: - Triphasic is normal. - Biphasic is abnormal if clear transition from triphasic signal along vascular tree. - Monophasic is abnormal. Signer Name: Jaxson Wilson DO Signed: 08/07/2021 12:19 PM Workstation Name: [id number] 1 VIEW 08/07/2021 12:48 PM INDICATION / CLINICAL INFORMATION: esrd. COMPARISON: 03/31/2021 FINDINGS: SUPPORT DEVICES: Dialysis catheter unchanged. HEART / MEDIASTINUM: Stable. LUNGS / PLEURA: Lung volumes have diminished. Mild vascular congestion remains. No pneumothorax. ADDITIONAL FINDINGS: No significant additional findings. IMPRESSION: 1. Interval decrease in lung volumes. 2. Mild vascular congestion. Signer Name: Rad Rowe MD Signed: 08/07/2021 12:51 PM Workstation Name: [id number] Critical care attestation.: If time is entered above; I have spent that time in minutes in the direct care of this critically ill patient, excluding procedure time. ED Disposition Clinical Impression: ESRD needing dialysis, Uremia, Hyperkalemia, Metabolic acidosis, Finger pain, left, PAD (peripheral artery disease), Chronic heel ulcer, Patient's noncompliance with renal dialysis Disposition: 09 ADMITTED INPATIENT Is pt being admited?: Yes Does the pt Need Aspirin: No Condition: Fair
[2021-08-07] MEDS ORDERED: fentaNYL 100 MCG/2 ML INJ IV ONE ×3 (11:36→14:50)
[2021-08-07] MEDS ORDERED: CALC GLUCONATE 1GM/NS 100 ML 1 GM/100 ML BAG IV ONE (12:00)
[2021-08-07 12:08] LABS: C-Reactive Protein 4.5 mg/dL (0.00-1.30)
--- NOTE | 2021-08-07 12:12 | XRay Report ---
LEFT HAND 3 VIEWS INDICATION: left hand pain ulceration. COMPARISON: None. IMPRESSION: No acute osseous abnormality or significant joint pathology is detected. There are diff use soft tissue vascular calcifications consistent with peripheral arterial disease. There is suggest ion of shallow skin ulceration on the dorsum of the hand. LEFT FOOT 3 VIEWS INDICATION: Left foot pain, ulceration. COMPARISON: None. IMPRESSION: Slightly limited exam by nonstandard images. No acute osseous abnormality or significan t joint pathology is detected. There are diffuse soft tissue vascular calcifications consistent with peripheral vascular disease. The soft tissues are edematous. Signer Name: Bret Mccabe Jr, MD Signed: 08/07/2021 12:05 PM Workstation Name: [id number]
--- NOTE | 2021-08-07 13:23 | Vascular Lab Report ---
DUPLEX DOPPLER LOWER EXTREMITY ARTERIAL, BILATERAL INDICATION / CLINICAL INFORMATION: PAD, left foot ulceration. TECHNIQUE: Arterial duplex examination of both lower extremities performed using B-mode, color flow a nd spectral Doppler assessment. FINDINGS: RIGHT: Common Femoral Artery: PSV 60 cm/sec. Biphasic waveform. Proximal SFA: PSV 52 cm/sec. Biphasic waveform. Mid SFA: PSV 46 cm/sec. Biphasic waveform. Distal SFA: PSV 38 cm/sec. Biphasic waveform. Popliteal Artery: PSV 23 cm/sec. Monophasic waveform. Posterior Tibial Artery: PSV 66 cm/sec. Biphasic waveform. Dorsalis Pedis Artery: PSV 34 cm/sec. Monophasic waveform. LEFT: Common Femoral Artery: PSV 56 cm/sec. Biphasic waveform. Proximal SFA: PSV 69 cm/sec. Biphasic waveform. Mid SFA: PSV 51 cm/sec. Biphasic waveform. Distal SFA: PSV 41 cm/sec. Monophasic waveform. Popliteal Artery: PSV 43 cm/sec. Biphasic waveform. Posterior Tibial Artery: Not measured secondary to patient cooperation. Dorsalis Pedis Artery: Not measured secondary to patient cooperation. ADDITIONAL FINDINGS: None. RIGHT MARGAUX: Not measured LEFT MARGAUX: Not measured IMPRESSION: 1. Abnormal waveforms in the right popliteal artery and dorsalis pedis artery and in the left distal superficial femoral artery. These findings suggest moderate peripheral vascular disease. The left pos terior tibial artery and dorsalis pedis artery was not evaluated secondary to patient cooperation. Ankle-Brachial Index (MARGAUX): - Calcified arteries > 1.4 - Normal = 0.9-1.4 - Mild PAD = 0.7-0.89 - Moderate PAD = 0.51-0.69 - Severe PAD < 0.5 Doppler Waveform: - Triphasic is normal. - Biphasic is abnormal if clear transition from triphasic signal along vascular tree. - Monophasic is abnormal. Signer Name: Jaxson Wilson DO Signed: 08/07/2021 1:19 PM Workstation Name: [id number]
[2021-08-07] MEDS ORDERED: SODIUM CHLORIDE 0.9% 100 ML IV PRN (13:29)
--- NOTE | 2021-08-07 13:56 | XRay Report ---
CHEST 1 VIEW 08/07/2021 12:48 PM INDICATION / CLINICAL INFORMATION: esrd. COMPARISON: 03/31/2021 FINDINGS: SUPPORT DEVICES: Dialysis catheter unchanged. HEART / MEDIASTINUM: Stable. LUNGS / PLEURA: Lung volumes have diminished. Mild vascular congestion remains. No pneumothorax. ADDITIONAL FINDINGS: No significant additional findings. IMPRESSION: 1. Interval decrease in lung volumes. 2. Mild vascular congestion. Signer Name: Rad Rowe MD Signed: 08/07/2021 1:51 PM Workstation Name: [id number]
--- NOTE | 2021-08-07 14:13 | Consultation ---
History of Present Illness - Reason for Consult Consult date: 08/07/21 Left hand pain? - History of Present Illness Patient with a history of end-stage renal disease on hemodialysis through a [facility] hemodialysis catheter. Patient presents with complaints of left hand pain and multiple missed dialysis sessions. At time of exam, the patient is demented and not appropriately responsive and no history was able to be obtained from the patient. The patient has left first toe gangrene. Her left hand and right hand appear to be equally warm. Unable to assess for sensation or motor given patient's uncooperative state. Past History Past Medical History: dialysis, ESRD, PVD Medications and Allergies Allergies Allergy/AdvReac Type Severity Reaction Status Date / Time No Known Allergies Allergy Verified 06/25/21 13:05 Home Medications Medication Instructions Recorded Confirmed Last Taken Type Cinacalcet [Sensipar] 30 mg PO QDAY 30 Days #30 tablet 02/26/21 07/07/21 07/06/21 Rx Hydralazine HCl 50 mg PO TID 30 Days #90 tab 03/25/21 07/07/21 07/06/21 Rx Valsartan [Diovan] 80 mg PO QDAY 30 Days #30 tab 03/25/21 07/07/21 07/07/21 Rx sevelamer HCL [Sevelamer HCl] 800 mg PO TID 30 Days #90 tab 03/25/21 07/07/21 07/06/21 Rx Acetaminophen [Acetaminophen TAB] 650 mg PO Q4H PRN tablet 04/01/21 07/07/21 07/06/21 Rx carvediloL [Coreg] 25 mg PO Q12HR tablet 04/01/21 07/07/21 07/06/21 Rx Clopidogrel [Plavix] 75 mg PO QDAY #90 tablet 06/24/21 07/07/21 07/06/21 Rx Pentoxifylline 400 mg PO DAILY #90 06/24/21 07/07/21 07/06/21 Rx Furosemide [Lasix TAB] 20 mg PO QDAY #30 tablet 06/25/21 07/07/21 07/06/21 Rx ISOSORBIDE MONOnitrate [Imdur ER] 30 mg PO QDAY #30 tablet 06/25/21 07/07/21 07/06/21 Rx Venlafaxine [Effexor 37.5mg tab] 37.5 mg PO BID #30 tablet 06/25/21 07/07/21 07/06/21 Rx Apixaban [Eliquis] 2.5 mg PO BID #180 07/07/21 Unknown Rx Pantoprazole [Protonix TAB] 40 mg PO BID #180 tablet 07/07/21 Unknown Rx ALPRAZolam [Xanax TAB] 0.25 mg PO Q8H PRN #12 tablet 07/09/21 Unknown Rx NIFEdipine XL [Procardia Xl] 30 mg PO Q12HR #60 tablet 07/09/21 Unknown Rx oxyCODONE /ACETAMINOPHEN [Percocet 1 tab PO Q8H PRN #15 tablet 07/09/21 Unknown Rx 5/325 mg] Active Meds: Active Medications Sodium Chloride (Nacl 0.9%) 100 mls @ 999 mls/hr IV KEV PRN PRN Reason: Hypotension Review of Systems ROS unobtainable: due to mental status Exam - Constitutional Vitals: Temp Pulse Resp BP Pulse Ox 97.4 F L 87 18 173/65 99 08/07/21 09:30 08/07/21 13:54 08/07/21 13:54 08/07/21 13:54 08/07/21 13:54 General appearance: Present: disheveled - Neck Neck: Present: normal ROM - Respiratory Respiratory effort: normal - Extremities Extremities: pulses intact (Unable to palpate radial pulses bilaterally. Hands are symmetric in color and temperature), abnormal - Abdominal General gastrointestinal: Present: deferred - Rectal Rectal Exam: deferred Results - Labs CBC & Chem 7: 08/07/21 09:45 08/07/21 09:45 Labs: Abnormal lab results 08/07/21 08/07/21 08/07/21 Range/Units 09:45 09:45 09:45 Hgb 9.6 L (10.1-14.3) gm/dl MCV 77 L (79-97) fl MCH 23 L (28-32) pg RDW 24.0 H (13.2-15.2) % Seg Neutrophils % 78.8 H (40.0-70.0) % Sodium 136 L (137-145) mmol/L Potassium 6.7 H* (3.6-5.0) mmol/L Chloride 95.5 L (98-107) mmol/L Carbon Dioxide 15 L (22-30) mmol/L BUN 104 H (7-17) mg/dL Creatinine 10.6 H (0.6-1.2) mg/dL Phosphorus 12.20 H (2.5-4.5) mg/dL Magnesium 2.40 H (1.7-2.3) mg/dL C-Reactive Protein 4.50 H (0.00-1.30) mg/dL NT-Pro-B Natriuret Pep 60076 H (0-900) pg/mL Assessment and Plan Patient with left hand pain by report. Unable to assess given patient's altered mental status. Patient has missed multiple sessions of dialysis which may be contributing to her altered mental status. Ultrasound of her arterial system legs was performed. The boiler technician was unable to perform an assessment of the arms given the patient's altered mental status. She is going to reattempt. If we are unable to assess with ultrasound, the patient may need a CTA.
[2021-08-07 15:51] LABS: Hepatitis B Surface Antigen Non-Reactive (Negative); Hepatitis C Virus Antibody Non-Reactive (NonReactive)
--- NOTE | 2021-08-07 16:09 | History and Physical Report ---
History of Present Illness Date of examination: 08/07/21 Date of admission: 08/07/2021 Chief complaint: Missed multiple hemodialysis sessions and short of breath next Complains of severe left foot pain and bilateral hand pain History of present illness: 56-year-old AAF patient with hypertension , peripheral arterial disease, end- stage renal disease on hemodialysis through a tunneled hemodialysis catheter presents with complaints of left hand pain and multiple missed dialysis sessions. At time of exam, the patient is demented and not appropriately responsive and no history was able to be obtained from the patient. The patient has left first toe gangrene. Her left hand and right hand appear to be equally warm. Unable to assess for sensation or motor system given patient's uncooperative state. Patient moves all 4 extremities. Patient winces with pain in abdomen the left hand is status. No ulcerations on the left hand. No fever no chills. Shortness of breath present because of the extreme. No chest pain. Some of the collateral history was given by her sister with whom she lives. Her name is Pancho. Patient's/sisters phone number on the - Past Medical History --Previous Medical History?: Yes --Hypertension: Yes --Diabetes: Yes --Renal Disease: Yes (dialysis //Wed) --Additional medical history: Deaf - Surgical History --Past Surgical History?: Yes --Additional Surgical History: right chest permacath - Social History --Smoking Status: Never Smoker Family history Htn - Medications --Home Medications: Home Medications Medication Instructions Recorded Confirmed Last Taken Type Cinacalcet [Sensipar] 30 mg PO QDAY 30 Days #30 tablet 02/26/21 07/07/21 07/06/21 Rx Hydralazine HCl 50 mg PO TID 30 Days #90 tab 03/25/21 07/07/21 07/06/21 Rx Valsartan [Diovan] 80 mg PO QDAY 30 Days #30 tab 03/25/21 07/07/21 07/07/21 Rx sevelamer HCL [Sevelamer HCl] 800 mg PO TID 30 Days #90 tab 03/25/21 07/07/21 07/06/21 Rx Acetaminophen [Acetaminophen TAB] 650 mg PO Q4H PRN tablet 04/01/21 07/07/21 07/06/21 Rx carvediloL [Coreg] 25 mg PO Q12HR tablet 04/01/21 07/07/21 07/06/21 Rx Clopidogrel [Plavix] 75 mg PO QDAY #90 tablet 06/24/21 07/07/21 07/06/21 Rx Pentoxifylline 400 mg PO DAILY #90 06/24/21 07/07/21 07/06/21 Rx Furosemide [Lasix TAB] 20 mg PO QDAY #30 tablet 06/25/21 07/07/21 07/06/21 Rx ISOSORBIDE MONOnitrate [Imdur ER] 30 mg PO QDAY #30 tablet 06/25/21 07/07/21 07/06/21 Rx Venlafaxine [Effexor 37.5mg tab] 37.5 mg PO BID #30 tablet 06/25/21 07/07/21 07/06/21 Rx Apixaban [Eliquis] 2.5 mg PO BID #180 07/07/21 Unknown Rx Pantoprazole [Protonix TAB] 40 mg PO BID #180 tablet 07/07/21 Unknown Rx ALPRAZolam [Xanax TAB] 0.25 mg PO Q8H PRN #12 tablet 07/09/21 Unknown Rx NIFEdipine XL [Procardia Xl] 30 mg PO Q12HR #60 tablet 07/09/21 Unknown Rx oxyCODONE /ACETAMINOPHEN [Percocet 1 tab PO Q8H PRN #15 tablet 07/09/21 Unknown Rx 5/325 mg] Review of Systems ROS: Stated complaint: FINGER PAIN Other details as noted in HPI Comment: Per family Constitutional: denies: fever Respiratory: denies: wheezing Cardiovascular: denies: chest pain, syncope Gastrointestinal: denies: nausea, vomiting, diarrhea Genitourinary: denies: dysuria Musculoskeletal: arthralgia, myalgia Skin: lesions, change in color Neurological: weakness (Generalized) Past History Past Medical History: dialysis, ESRD, PVD Medications and Allergies Allergies Allergy/AdvReac Type Severity Reaction Status Date / Time No Known Allergies Allergy Verified 06/25/21 13:05 Home Medications Medication Instructions Recorded Confirmed Last Taken Type Cinacalcet [Sensipar] 30 mg PO QDAY 30 Days #30 tablet 02/26/21 08/08/21 07/06/21 Rx Hydralazine HCl 50 mg PO TID 30 Days #90 tab 03/25/21 08/08/21 07/06/21 Rx Valsartan [Diovan] 80 mg PO QDAY 30 Days #30 tab 03/25/21 08/08/21 07/07/21 Rx sevelamer HCL [Sevelamer HCl] 800 mg PO TID 30 Days #90 tab 03/25/21 08/08/21 07/06/21 Rx Acetaminophen [Acetaminophen TAB] 650 mg PO Q4H PRN tablet 04/01/21 08/08/21 07/06/21 Rx carvediloL [Coreg] 25 mg PO Q12HR tablet 04/01/21 08/08/21 07/06/21 Rx Clopidogrel [Plavix] 75 mg PO QDAY #90 tablet 06/24/21 08/08/21 07/06/21 Rx Pentoxifylline 400 mg PO DAILY #90 06/24/21 08/08/21 07/06/21 Rx Furosemide [Lasix TAB] 20 mg PO QDAY #30 tablet 06/25/21 08/08/21 07/06/21 Rx ISOSORBIDE MONOnitrate [Imdur ER] 30 mg PO QDAY #30 tablet 06/25/21 08/08/21 07/06/21 Rx Venlafaxine [Effexor 37.5mg tab] 37.5 mg PO BID #30 tablet 06/25/21 08/08/21 07/06/21 Rx Apixaban [Eliquis] 2.5 mg PO BID #180 07/07/21 08/08/21 Unknown Rx Pantoprazole [Protonix TAB] 40 mg PO BID #180 tablet 07/07/21 08/08/21 Unknown Rx ALPRAZolam [Xanax TAB] 0.25 mg PO Q8H PRN #12 tablet 07/09/21 08/08/21 Unknown Rx NIFEdipine XL [Procardia Xl] 30 mg PO Q12HR #60 tablet 07/09/21 08/08/21 08/07/21 23:00 Rx oxyCODONE /ACETAMINOPHEN [Percocet 1 tab PO Q8H PRN #15 tablet 07/09/21 08/08/21 Unknown Rx 5/325 mg] Active Meds: Active Medications Sodium Chloride (Nacl 0.9%) 100 mls @ 999 mls/hr IV KEV PRN PRN Reason: Hypotension Exam - Constitutional Vitals: Temp Pulse Resp BP Pulse Ox 97.4 F L 75 18 172/96 98 08/07/21 09:30 08/07/21 15:15 08/07/21 15:15 08/07/21 15:15 08/07/21 15:15 General appearance: Present: mild distress, well-nourished - EENT Eyes: Present: PERRL ENT: hearing intact, clear oral mucosa - Neck Neck: Present: supple, normal ROM - Respiratory Respiratory effort: normal Respiratory: bilateral: CTA - Cardiovascular Heart Sounds: Present: S1 & S2. Absent: rub, click - Extremities Extremities: pulses symmetrical, No edema, abnormal (Left great toe gangrene use) Extremity abnormal: other (Left hand tender to touch) Peripheral Pulses: within normal limits - Abdominal General gastrointestinal: Present: soft, non-tender, non-distended, normal bowel sounds Female genitourinary: Present: normal - Integumentary Integumentary: Present: clear, warm, dry - Musculoskeletal Musculoskeletal: gait normal, strength equal bilaterally - Psychiatric Psychiatric: appropriate mood/affect, intact judgment & insight - Neurologic Neurologic: CNII-XII intact, moves all extremities Results - Labs CBC & Chem 7: 08/08/21 04:40 08/08/21 04:40 Labs: Laboratory Last Values WBC 7.4 K/mm3 (4.5-11.0) 08/07/21 09:45 RBC 4.10 M/mm3 (3.65-5.03) 08/07/21 09:45 Hgb 9.6 gm/dl (10.1-14.3) L 08/07/21 09:45 Hct 31.4 % (30.3-42.9) 08/07/21 09:45 MCV 77 fl (79-97) L 08/07/21 09:45 MCH 23 pg (28-32) L 08/07/21 09:45 MCHC 30 % (30-34) 08/07/21 09:45 RDW 24.0 % (13.2-15.2) H 08/07/21 09:45 Plt Count 299 K/mm3 (140-440) 08/07/21 09:45 Lymph % (Auto) 16.4 % (13.4-35.0) 08/07/21 09:45 [place] % (Auto) 4.1 % (0.0-7.3) 08/07/21 09:45 Eos % (Auto) 0.1 % (0.0-4.3) 08/07/21 09:45 Baso % (Auto) 0.6 % (0.0-1.8) 08/07/21 09:45 Lymph # (Auto) 1.2 K/mm3 (1.2-5.4) 08/07/21 09:45 [place] # (Auto) 0.3 K/mm3 (0.0-0.8) 08/07/21 09:45 Eos # (Auto) 0.0 K/mm3 (0.0-0.4) 08/07/21 09:45 Baso # (Auto) 0.0 K/mm3 (0.0-0.1) 08/07/21 09:45 Seg Neutrophils % 78.8 % (40.0-70.0) H 08/07/21 09:45 Seg Neutrophils # 5.8 K/mm3 (1.8-7.7) 08/07/21 09:45 ESR 29 mm/Hr (0-20) 08/07/21 09:45 Sodium 136 mmol/L (137-145) L 08/07/21 09:45 Potassium 6.7 mmol/L (3.6-5.0) H* 08/07/21 09:45 Chloride 95.5 mmol/L (98-107) L 08/07/21 09:45 Carbon Dioxide 15 mmol/L (22-30) L 08/07/21 09:45 Anion Gap 32 mmol/L 08/07/21 09:45 BUN 104 mg/dL (7-17) H 08/07/21 09:45 Creatinine 10.6 mg/dL (0.6-1.2) H 08/07/21 09:45 Estimated GFR 5 ml/min 08/07/21 09:45 BUN/Creatinine Ratio 10 % 08/07/21 09:45 Glucose 75 mg/dL (65-100) 08/07/21 09:45 Calcium 10.0 mg/dL (8.4-10.2) 08/07/21 09:45 Phosphorus 12.20 mg/dL (2.5-4.5) H 08/07/21 09:45 Magnesium 2.40 mg/dL (1.7-2.3) H 08/07/21 09:45 C-Reactive Protein 4.50 mg/dL (0.00-1.30) H 08/07/21 09:45 NT-Pro-B Natriuret Pep 94426 pg/mL (0-900) H 08/07/21 09:45 Hepatitis A IgM Ab Non-reactive (NonReactive) 08/07/21 09:45 Hep Bs Antigen Non-reactive (Negative) 08/07/21 09:45 Hep B Core IgM Ab Non-reactive (NonReactive) 08/07/21 09:45 Hepatitis C Antibody Non-reactive (NonReactive) 08/07/21 09:45 Short CBC 08/07/21 08/08/21 Range/Units 09:45 04:40 WBC 7.4 5.0 (4.5-11.0) K/mm3 Hgb 9.6 L 8.7 L (10.1-14.3) gm/dl Hct 31.4 28.1 L (30.3-42.9) % Plt Count 299 214 (140-440) K/mm3 [facility] 08/07/21 08/08/21 09:45 04:40 Sodium 136 L 138 Potassium 6.7 H* Chloride 95.5 L 98.1 Carbon Dioxide 15 L 20 L BUN 104 H 69 H Creatinine 10.6 H Glucose 75 64 L Calcium 10.0 9.1 Liver Function 08/08/21 Range/Units 04:40 Total Bilirubin 0.40 (0.1-1.2) mg/dL AST 18 (5-40) units/L ALT 12 (7-56) units/L Alkaline Phosphatase 107 (35-129) units/L Albumin 3.4 L (3.9-5) g/dL - Imaging and Cardiology EKG: report reviewed (Sinus rhythm monitor ST-T wave changes.) Imaging and Cardiology: Nuclear scan lower extremity arteries Abnormal waveforms in the right popliteal artery and dorsalis pedis artery and the left distal superficial femoral disease. There is. These findings suggest moderate peripheral vascular disease. The left posterior tibial artery and the dorsalis pedis artery was not visualized secondary to patient cooperation. Hand and foot x-ray No acute osseous abnormalities in the meantime pathology in the left. Soft tissue vascular calcifications consistent with peripheral arterial disease. There is suggestion of shallow skin ulceration on the dorsum of the hand. Left foot no acute osseous abnormality or significant degenerative pathology is detected. Diffuse soft tissue vascular calcifications can be withheld for the last 2 days. The soft tissues are erythematous. Assessment and Plan Advance Directives: Yes (Full code) VTE prophylaxis?: Chemical Plan of care discussed with patient/family: Yes - Patient Problems (1) Hyperkalemia Current Visit: Yes Status: Acute Plan to address problem: Hyperkalemia treated in the emergency room with Kayexalate and also taken for emergent hemodialysis. Recheck potassium level after hemodialysis (2) Volume overload Current Visit: Yes Status: Acute Plan to address problem: Patient has multiple missed hemodialysis sessions Patient is extremely deaf Sister was counseled about Patient being taken for emergent treatment of Nephrology consult appreciated (3) Gangrene of toe of left foot Current Visit: Yes Status: Chronic Plan to address problem: Left great toe gangrenous Vascular surgery consulted Patient has peripheral arterial disease Patient may be a candidate for amputation of the left great toe Will defer to vascular surgery (4) Acute gout Current Visit: Yes Status: Acute Qualifiers: Gout site: hand Plan to address problem: Differential diagnosis of acute gout versus pseudogout Colchicine and Indocin initiated (5) PAD (peripheral artery disease) Current Visit: Yes Status: Chronic Plan to address problem: Moderate to severe Vascular surgery/IR consulted (6) Hypertension Current Visit: Yes Status: Chronic Qualifiers: Hypertension type: primary hypertension Qualified Code(s): I10 - Essential (primary) hypertension Plan to address problem: Continue antihypertensives and adjust medications (7) A-fib Current Visit: Yes Status: Chronic Qualifiers: Atrial fibrillation type: persistent (not longstanding) Qualified Code(s): I48.19 - Other persistent atrial fibrillation; I48.1 - Persistent atrial fibrillation Plan to address problem: On Eliquis (8) Coronary artery disease Current Visit: Yes Status: Chronic Qualifiers: Coronary Disease-Associated Artery/Lesion type: [place] artery [place] vs. transplanted heart: [place] heart Plan to address problem: Patient on isosorbide mononitrate and aspirin (9) CHF (congestive heart failure) Current Visit: Yes Status: Chronic Qualifiers: Heart failure type: combined systolic and diastolic Plan to address problem: Continue Lasix The use of Lasix may be stopped because of the patient's hemodialysis which can be used for increased ultrafiltration (10) DVT prophylaxis Current Visit: No Status: Acute Plan to address problem: On anticoagulation GI prophylaxis (11) Advance care planning Current Visit: Yes Status: Acute Plan to address problem: Disease education conducted, care plan discussed, diagnosis discussed, prognosis discussed. Patient is full code. Patient acknowledges understanding and agreement with care plan. +30 minutes.
[2021-08-07] MEDS ORDERED: diphenhydrAMINE 50 MG/ML VIAL IV ONE (21:35)
[2021-08-07] MEDS ORDERED: diphenhydrAMINE 50 MG/ML VIAL ONE (21:36)
[2021-08-07] MEDS ORDERED: ONDANSETRON 4 MG/2 ML INJ IV PRN (22:17)
[2021-08-07] MEDS ORDERED: ACETAMINOPHEN 325 MG TAB PO PRN ×2 (22:17→22:22)
[2021-08-07] MEDS ORDERED: METOCLOPRAMIDE 10 MG/2 ML INJ IV PRN ×2 (22:17→22:25)
[2021-08-07] MEDS ORDERED: NON-FORMULARY EACH (Apixaban 2.5 MG Tablet) PO SCH (22:30)
[2021-08-07] MEDS: MORPHINE 2 MG/1 ML INJ IV PRN (23:00)
[2021-08-07] MEDS: carvediloL 25 MG TAB PO SCH (23:00)
[2021-08-07] MEDS: APIXABAN 2.5 MG TAB PO SCH (23:00)
[2021-08-07] MEDS: VENLAFAXINE 37.5 MG TAB PO SCH (23:00)
[2021-08-07] MEDS: NIFEdipine XL 30 MG TAB PO SCH (23:24)
[2021-08-08] MEDS: MORPHINE 2 MG/1 ML INJ IV PRN ×2 (03:27→22:08)
[2021-08-08 05:19] LABS: Basophils % (Auto) 0.9 % (0.0-1.8); Eosinophils # (Auto) 0.1 K/mm3 (0.0-0.4); Eosinophils % (Auto) 1.6 % (0.0-4.3); Hematocrit 28.1 % (30.3-42.9); Hemoglobin 8.7 gm/dl (10.1-14.3); Lymphocytes # (Auto) 0.7 K/mm3 (1.2-5.4); Lymphocytes % (Auto) 13.6 % (13.4-35.0); Mean Corpuscular HGB Conc 31 % (30-34); Mean Corpuscular Volume 75 fl (79-97); Monocytes # (Auto) 0.3 K/mm3 (0.0-0.8); Monocytes % (Auto) 5.8 % (0.0-7.3); Platelet Count 214 K/mm3 (140-440); Red Blood Count 3.76 M/mm3 (3.65-5.03)
[2021-08-08 05:20] LABS: Red Cell Distribution Width 24.1 % (13.2-15.2)
[2021-08-08 05:38] LABS: Albumin 3.4 g/dL (3.9-5); Calcium 9.1 mg/dL (8.4-10.2)
[2021-08-08] MEDS: INDOMETHACIN 25 MG CAP PO SCH ×3 (07:00→21:37)
[2021-08-08] MEDS ORDERED: NON-FORMULARY EACH (Sevelamer Hcl [Sevelamer Hcl] 800 MG Tablet) PO SCH (08:00)
[2021-08-08] MEDS ORDERED: NON-FORMULARY EACH (Hydralazine Hcl [Hydralazine Hcl] 50 MG Tablet) PO SCH (08:00)
[2021-08-08] MEDS ORDERED: HEPARIN 5,000 UNIT/1 ML VIAL SUB-Q SCH (10:00)
[2021-08-08] MEDS ORDERED: NON-FORMULARY EACH (Valsartan [Diovan] 80 MG Tablet) PO SCH (10:00)
--- NOTE | 2021-08-08 10:07 | Electrocardiograph Report ---
[facility] Test Date: 2021-08-07 Test Time: 10:45:07 Pat Name: MARIE HUTTON Department: Room: A376 Gender: F Metal [employer]: HUGO : 1965 Requested By: RANJITH SIM Order Number: [id number] Reading MD: Crow Altman Measurements Intervals [place] Rate: 76 P: 40 MN: 189 QRS: 0 QRSD: 86 T: 119 QT: 402 QTc: 452 Interpretive Statements Sinus arrhythmia Consider anterior infarct Abnormal T, consider ischemia, lateral leads Compared to ECG 06/19/2021 12:44:11 Myocardial infarct finding now present No significant change noted. T-wave abnormality still present Electronically Signed On 08-08-2021 10:06:57 EDT by Crow Altman
[2021-08-08] MEDS: carvediloL 25 MG TAB PO SCH ×2 (10:29→21:37)
[2021-08-08] MEDS: hydrALAZINE 25 MG TAB PO SCH ×3 (10:29→20:32)
[2021-08-08] MEDS: CINACALCET 30 MG TAB PO SCH (10:29)
[2021-08-08] MEDS: COLCHICINE 0.6 MG TAB PO SCH (10:29)
[2021-08-08] MEDS: APIXABAN 2.5 MG TAB PO SCH ×2 (10:29→21:37)
[2021-08-08] MEDS: CLOPIDOGREL 75 MG TAB PO SCH (10:30)
[2021-08-08] MEDS: SEVELAMER CARBONATE 800 MG TAB PO SCH ×3 (10:39→18:16)
[2021-08-08] MEDS: VENLAFAXINE 37.5 MG TAB PO SCH ×2 (10:47→21:37)
[2021-08-08] MEDS: PENTOXIFYLLINE ER 400 MG TAB PO SCH (10:47)
[2021-08-08] MEDS: FUROSEMIDE 20 MG TAB PO SCH (10:47)
[2021-08-08] MEDS: VALSARTAN 40 MG TAB PO SCH (10:47)
[2021-08-08] MEDS: predniSONE 10 MG TAB PO SCH (10:48)
--- NOTE | 2021-08-08 11:21 | Progress Note ---
Assessment and Plan Patient with chronic left foot ulcerations and a new ulceration of the left 2nd finger. The patient had recent intervention of the left leg. She was noncooperative with the u/s tech and therefore did not allow interrogation of her left tibial vessels. The foot is warm and there are no overt sign of infection. Would continue local wound care. Left finger with ischemic changes. CTA of left upper extremity is pending. Decisions for possible management will be decided after reviewing the study. Subjective Date of service: 08/08/21 Interval history: Patient is without new complaints. Objective - Constitutional Vitals: Vital Signs - 12hr 08/07/21 08/08/21 08/08/21 23:52 05:54 08:24 Temperature 98.6 F 98.4 F Pulse Rate 89 92 H Respiratory 20 20 16 Rate Blood Pressure 166/91 160/78 O2 Sat by Pulse 99 93 95 Oximetry 08/08/21 10:29 Temperature Pulse Rate 76 Respiratory Rate Blood Pressure 164/78 O2 Sat by Pulse Oximetry General appearance: Present: no acute distress Extremities: pulses intact (palpable left radial pulse), abnormal (left 2nd finger with ischemic change to the distal phalynx) Extremity abnormal: pulses diminished (nonpalpable left radial pulse), other (left foot with stable ulcerations) - Labs CBC & Chem 7: 08/08/21 04:40 08/08/21 04:40 Labs: Abnormal lab results 08/07/21 08/08/21 08/08/21 Range/Units 09:45 04:40 04:40 Hgb 8.7 L (10.1-14.3) gm/dl Hct 28.1 L (30.3-42.9) % MCV 75 L (79-97) fl MCH 23 L (28-32) pg RDW 24.1 H (13.2-15.2) % Lymph # (Auto) 0.7 L (1.2-5.4) K/mm3 Seg Neutrophils % 78.1 H (40.0-70.0) % Carbon Dioxide 20 L (22-30) mmol/L BUN 69 H (7-17) mg/dL Creatinine 7.6 H (0.6-1.2) mg/dL Glucose 64 L (65-100) mg/dL C-Reactive Protein 4.50 H (0.00-1.30) mg/dL NT-Pro-B Natriuret Pep 39293 H (0-900) pg/mL Albumin 3.4 L (3.9-5) g/dL Medications & Allergies - Medications Allergies/Adverse Reactions: Allergies No Known Allergies Allergy (Verified 06/25/21 13:05) Home Medications: Home Medications Medication Instructions Recorded Confirmed Last Taken Type Cinacalcet [Sensipar] 30 mg PO QDAY 30 Days #30 tablet 02/26/21 08/08/21 0 07/06/21 Rx Hydralazine HCl 50 mg PO TID 30 Days #90 tab 03/25/21 08/08/21 07/06/21 Rx Valsartan [Diovan] 80 mg PO QDAY 30 Days #30 tab 03/25/21 08/08/21 07/07/21 Rx sevelamer HCL [Sevelamer HCl] 800 mg PO TID 30 Days #90 tab 03/25/21 08/08/21 07/06/21 Rx Acetaminophen [Acetaminophen TAB] 650 mg PO Q4H PRN tablet 04/01/21 08/08/21 07/06/21 Rx carvediloL [Coreg] 25 mg PO Q12HR tablet 04/01/21 08/08/21 07/06/21 Rx Clopidogrel [Plavix] 75 mg PO QDAY #90 tablet 06/24/21 08/08/21 07/06/21 Rx Pentoxifylline 400 mg PO DAILY #90 06/24/21 08/08/21 07/06/21 Rx Furosemide [Lasix TAB] 20 mg PO QDAY #30 tablet 06/25/21 08/08/21 07/06/21 Rx ISOSORBIDE MONOnitrate [Imdur ER] 30 mg PO QDAY #30 tablet 06/25/21 08/08/21 07/06/21 Rx Venlafaxine [Effexor 37.5mg tab] 37.5 mg PO BID #30 tablet 06/25/21 08/08/21 07/06/21 Rx Apixaban [Eliquis] 2.5 mg PO BID #180 07/07/21 08/08/21 Unknown Rx Pantoprazole [Protonix TAB] 40 mg PO BID #180 tablet 07/07/21 08/08/21 Unknown Rx ALPRAZolam [Xanax TAB] 0.25 mg PO Q8H PRN #12 tablet 07/09/21 08/08/21 Unknown Rx NIFEdipine XL [Procardia Xl] 30 mg PO Q12HR #60 tablet 07/09/21 08/08/21 08/07/21 23:00 Rx oxyCODONE /ACETAMINOPHEN [Percocet 1 tab PO Q8H PRN #15 tablet 07/09/21 08/08/21 Unknown Rx 5/325 mg] Active Medications: Generic Name Dose Route Start Last Admin Trade Name Freq PRN Reason Stop Dose Admin Acetaminophen 650 mg 08/07/21 22:17 Acetaminophen 325 Mg Tab PO Q4H PRN Pain MILD(1-3)/Fever >100.5/PALOMINO Alprazolam 0.25 mg 08/07/21 22:22 Alprazolam 0.25 Mg Tab PO Q8H PRN Anxiety Apixaban 2.5 mg 08/07/21 23:00 08/08/21 10:29 Apixaban 2.5 Mg Tab PO 2.5 mg BID SHRUTI Administration Carvedilol 25 mg 08/07/21 23:00 08/08/21 10:29 Carvedilol 25 Mg Tab PO 25 mg Q12HR SHRUTI Administration Cinacalcet 30 mg 08/08/21 10:00 08/08/21 10:29 Cinacalcet 30 Mg Tab PO 30 mg QDAY SHRUTI Administration Clopidogrel Bisulfate 75 mg 08/08/21 10:00 08/08/21 10:30 Clopidogrel 75 Mg Tab PO 75 mg QDAY SHRUTI Administration Colchicine 0.6 mg 08/08/21 08:00 08/08/21 10:29 Colchicine 0.6 Mg Tab PO 0.6 mg QOD SHRUTI Administration Furosemide 20 mg 08/08/21 10:00 08/08/21 10:47 Furosemide 20 Mg Tab PO 20 mg QDAY SHRUTI Administration Hydralazine HCl 50 mg 08/08/21 08:00 08/08/21 10:29 Hydralazine 25 Mg Tab PO 50 mg TID SHRUTI Administration Sodium Chloride 100 mls @ 999 mls/hr 08/07/21 13:29 Nacl 0.9% IV KEV PRN Hypotension Indomethacin 25 mg 08/08/21 07:00 Indomethacin 25 Mg Cap PO Q8HR SHRUTI Isosorbide Mononitrate 30 mg 08/08/21 10:00 Isosorbide Mononitrate Er 30 Mg Tab PO QDAY SHRUTI Metoclopramide HCl 2.5 mg 08/07/21 22:25 Metoclopramide 10 Mg/2 Ml Inj IV Q6H PRN Nausea And Vomiting Morphine Sulfate 2 mg 08/07/21 22:17 08/08/21 03:27 Morphine 2 Mg/1 Ml Inj IV 2 mg Q4H PRN Administration Pain, Moderate (4-6) Nifedipine 30 mg 08/07/21 23:00 08/07/21 23:24 Nifedipine Xl 30 Mg Tab PO 30 mg Q12HR SHRUTI Administration Ondansetron HCl 4 mg 08/07/21 22:17 Ondansetron 4 Mg/2 Ml Inj IV Q8H PRN Nausea And Vomiting Oxycodone/Acetaminophen 1 tab 08/07/21 22:17 Oxycodone /Acetaminophen 5-325mg Tab PO Q6H PRN Pain, Moderate (4-6) Pentoxifylline 400 mg 08/08/21 10:00 08/08/21 10:47 Pentoxifylline Er 400 Mg Tab PO 400 mg DAILY SHRUTI Administration Prednisone 10 mg 08/08/21 10:00 08/08/21 10:48 Prednisone 10 Mg Tab PO 10 mg QDAY SHRUTI Administration Sevelamer Carbonate 800 mg 08/08/21 08:00 08/08/21 10:39 Sevelamer Carbonate 800 Mg Tab PO Not Given TIDWM SHRUTI Sodium Chloride 10 ml 08/07/21 23:00 08/08/21 10:40 Sodium Chloride 0.9% 10 Ml Flush Syringe IV 10 ml BID SHRUTI Administration Sodium Chloride 10 ml 08/07/21 22:17 Sodium Chloride 0.9% 10 Ml Flush Syringe IV PRN PRN LINE FLUSH Valsartan 80 mg 08/08/21 10:00 08/08/21 10:47 Valsartan 40 Mg Tab PO 80 mg QDAY SHRUTI Administration Venlafaxine HCl 37.5 mg 08/07/21 23:00 08/08/21 10:47 Venlafaxine 37.5 Mg Tab PO 37.5 mg BID SHRUTI Administration
[2021-08-08] MEDS: NIFEdipine XL 30 MG TAB PO SCH ×2 (12:34→21:37)
--- NOTE | 2021-08-08 13:42 | Consultation ---
History of Present Illness - Reason for Consult Consult date: 08/08/21 end stage renal disease, hyperkalemia Requesting physician: DIMITRI LYNCH - History of Present Illness This is a 56 yo deaf-mute F with past medical history of ESRD on HD secondary to diabetic meds mellitus, hypertension on maintenance hemodialysis on a Wednesday, and Wednesday schedule, peripheral vascular disease,who was admitted after presenting with complaints of left hand pain along with missed HD treatments. Patient has history of chronic left foot ulcerations with recent intervention of the L leg, now presents with new ulceration of the left 2nd finger. Patient is admitted for further vascular surgery evaluation. Labs showed elevated BUN/Cr at 104/10.6mg/dl along with significant hyperkalemia wiht K at 6.7. Renal consult is requested for management of ESRD/HD and correction of hyperkalemia. Past History Past Medical History: dialysis, ESRD, PVD Past Surgical History: Other (permcath) Social history: denies: smoking, alcohol abuse, prescription drug abuse, IV drug use Medications and Allergies Allergies Allergy/AdvReac Type Severity Reaction Status Date / Time No Known Allergies Allergy Verified 06/25/21 13:05 Home Medications Medication Instructions Recorded Confirmed Last Taken Type Cinacalcet [Sensipar] 30 mg PO QDAY 30 Days #30 tablet 02/26/21 08/08/21 07/06/21 Rx Hydralazine HCl 50 mg PO TID 30 Days #90 tab 03/25/21 08/08/21 07/06/21 Rx Valsartan [Diovan] 80 mg PO QDAY 30 Days #30 tab 03/25/21 08/08/21 07/07/21 Rx sevelamer HCL [Sevelamer HCl] 800 mg PO TID 30 Days #90 tab 03/25/21 08/08/21 07/06/21 Rx Acetaminophen [Acetaminophen TAB] 650 mg PO Q4H PRN tablet 04/01/21 08/08/21 07/06/21 Rx carvediloL [Coreg] 25 mg PO Q12HR tablet 04/01/21 08/08/21 07/06/21 Rx Clopidogrel [Plavix] 75 mg PO QDAY #90 tablet 06/24/21 08/08/21 07/06/21 Rx Pentoxifylline 400 mg PO DAILY #90 06/24/21 08/08/21 07/06/21 Rx Furosemide [Lasix TAB] 20 mg PO QDAY #30 tablet 06/25/21 08/08/21 07/06/21 Rx ISOSORBIDE MONOnitrate [Imdur ER] 30 mg PO QDAY #30 tablet 06/25/21 08/08/21 07/06/21 Rx Venlafaxine [Effexor 37.5mg tab] 37.5 mg PO BID #30 tablet 06/25/21 08/08/21 0 07/06/21 Rx Apixaban [Eliquis] 2.5 mg PO BID #180 07/07/21 08/08/21 Unknown Rx Pantoprazole [Protonix TAB] 40 mg PO BID #180 tablet 07/07/21 08/08/21 Unknown Rx ALPRAZolam [Xanax TAB] 0.25 mg PO Q8H PRN #12 tablet 07/09/21 08/08/21 Unknown Rx NIFEdipine XL [Procardia Xl] 30 mg PO Q12HR #60 tablet 07/09/21 08/08/21 08/07/21 23:00 Rx oxyCODONE /ACETAMINOPHEN [Percocet 1 tab PO Q8H PRN #15 tablet 07/09/21 08/08/21 Unknown Rx 5/325 mg] Active Meds: Active Medications Acetaminophen (Acetaminophen 325 Mg Tab) 650 mg PO Q4H PRN PRN Reason: Pain MILD(1-3)/Fever >100.5/PALOMINO Alprazolam (Alprazolam 0.25 Mg Tab) 0.25 mg PO Q8H PRN PRN Reason: Anxiety Apixaban (Apixaban 2.5 Mg Tab) 2.5 mg PO BID [facility] Last Admin: 08/08/21 10:29 Dose: 2.5 mg Carvedilol (Carvedilol 25 Mg Tab) 25 mg PO Q12HR [facility] Last Admin: 08/08/21 10:29 Dose: 25 mg Cinacalcet (Cinacalcet 30 Mg Tab) 30 mg PO QDAY [facility] Last Admin: 08/08/21 10:29 Dose: 30 mg Clopidogrel Bisulfate (Clopidogrel 75 Mg Tab) 75 mg PO QDAY [facility] Last Admin: 08/08/21 10:30 Dose: 75 mg Colchicine (Colchicine 0.6 Mg Tab) 0.6 mg PO QOD [facility] Last Admin: 08/08/21 10:29 Dose: 0.6 mg Furosemide (Furosemide 20 Mg Tab) 20 mg PO QDAY [facility] Last Admin: 08/08/21 10:47 Dose: 20 mg Hydralazine HCl (Hydralazine 25 Mg Tab) 50 mg PO TID [facility] Last Admin: 08/08/21 13:32 Dose: 50 mg Sodium Chloride (Nacl 0.9%) 100 mls @ 999 mls/hr IV KEV PRN PRN Reason: Hypotension Indomethacin (Indomethacin 25 Mg Cap) 25 mg PO Q8HR [facility] Last Admin: 08/08/21 13:32 Dose: 25 mg Isosorbide Mononitrate (Isosorbide Mononitrate Er 30 Mg Tab) 30 mg PO QDAY [facility] Last Admin: 08/08/21 12:34 Dose: 30 mg Metoclopramide HCl (Metoclopramide 10 Mg/2 Ml Inj) 2.5 mg IV Q6H PRN PRN Reason: Nausea And Vomiting Morphine Sulfate (Morphine 2 Mg/1 Ml Inj) 2 mg IV Q4H PRN PRN Reason: Pain, Moderate (4-6) Last Admin: 08/08/21 03:27 Dose: 2 mg Nifedipine (Nifedipine Xl 30 Mg Tab) 30 mg PO Q12HR [facility] Last Admin: 08/08/21 12:34 Dose: 30 mg Ondansetron HCl (Ondansetron 4 Mg/2 Ml Inj) 4 mg IV Q8H PRN PRN Reason: Nausea And Vomiting Oxycodone/Acetaminophen (Oxycodone /Acetaminophen 5-325mg Tab) 1 tab PO Q6H PRN PRN Reason: Pain, Moderate (4-6) Pentoxifylline (Pentoxifylline Er 400 Mg Tab) 400 mg PO DAILY [facility] Last Admin: 08/08/21 10:47 Dose: 400 mg Prednisone (Prednisone 10 Mg Tab) 10 mg PO QDAY [facility] Last Admin: 08/08/21 10:48 Dose: 10 mg Sevelamer Carbonate (Sevelamer Carbonate 800 Mg Tab) 800 mg PO TIDWM [facility] Last Admin: 08/08/21 12:34 Dose: 800 mg Sodium Chloride (Sodium Chloride 0.9% 10 Ml Flush Syringe) 10 ml IV BID [facility] Last Admin: 08/08/21 10:40 Dose: 10 ml Sodium Chloride (Sodium Chloride 0.9% 10 Ml Flush Syringe) 10 ml IV PRN PRN PRN Reason: LINE FLUSH Valsartan (Valsartan 40 Mg Tab) 80 mg PO QDAY [facility] Last Admin: 08/08/21 10:47 Dose: 80 mg Venlafaxine HCl (Venlafaxine 37.5 Mg Tab) 37.5 mg PO BID [facility] Last Admin: 08/08/21 10:47 Dose: 37.5 mg Review of Systems ROS unobtainable: due to mental status Exam - Vital Signs Vital signs: Vital Signs Temp Pulse Resp BP Pulse Ox 97.4 F L 75 16 168/87 100 08/07/21 09:30 08/07/21 09:30 08/07/21 09:30 08/07/21 09:30 08/07/21 09:30 - General Appearance General appearance: well-developed, appears stated age EENT: ATNC, PERRL, mucous membranes moist Neck: Present: neck supple Respiratory: Clear to Ascultation Heart: regular, S1S2 Gastrointestinal: Present: normoactive bowel sounds Integumentary: no rash Neurologic: no focal deficit, confused, disoriented Results - Lab Results 08/08/21 04:40 08/08/21 04:40 Most recent lab results Calcium 9.1 mg/dL (8.4-10.2) 08/08/21 04:40 Phosphorus 12.20 mg/dL (2.5-4.5) H 08/07/21 09:45 Magnesium 2.40 mg/dL (1.7-2.3) H 08/07/21 09:45 Assessment and Plan - Patient Problems (1) Hyperkalemia Current Visit: Yes Status: Acute Plan to address problem: K improved with HD, cont 2g K renal diet (2) ESRD (end stage renal disease) on dialysis Current Visit: No Status: Acute Plan to address problem: Cont HD on TTS schedule (3) 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 (4) Anemia in end-stage renal disease Current Visit: No Status: Acute Plan to address problem: Given erythropoietin on dialysis and follow-up hemoglobin (5) Hypertensive chronic kidney disease with stage 5 chronic kidney disease or end stage renal disease Current Visit: No Status: Acute Plan to address problem: monitor BP on current meds (6) Type 2 diabetes mellitus with diabetic chronic kidney disease Current Visit: No Status: Acute Plan to address problem: diabetes management as per primary attending
[2021-08-09] MEDS: INDOMETHACIN 25 MG CAP PO SCH ×3 (05:35→22:02)
[2021-08-09] MEDS: hydrALAZINE 25 MG TAB PO SCH ×3 (08:00→21:10)
[2021-08-09] MEDS: SEVELAMER CARBONATE 800 MG TAB PO SCH ×3 (08:00→17:22)
[2021-08-09] MEDS: predniSONE 10 MG TAB PO SCH (09:29)
[2021-08-09] MEDS: NIFEdipine XL 30 MG TAB PO SCH ×2 (09:29→22:04)
[2021-08-09] MEDS: FUROSEMIDE 20 MG TAB PO SCH (09:30)
[2021-08-09] MEDS: CLOPIDOGREL 75 MG TAB PO SCH (09:30)
[2021-08-09] MEDS: carvediloL 25 MG TAB PO SCH ×2 (09:30→22:03)
[2021-08-09] MEDS: PENTOXIFYLLINE ER 400 MG TAB PO SCH (09:31)
[2021-08-09] MEDS: VENLAFAXINE 37.5 MG TAB PO SCH ×2 (09:31→22:01)
[2021-08-09] MEDS: CINACALCET 30 MG TAB PO SCH (09:33)
[2021-08-09] MEDS: APIXABAN 2.5 MG TAB PO SCH ×2 (09:33→22:02)
[2021-08-09] MEDS: VALSARTAN 40 MG TAB PO SCH (10:00)
--- NOTE | 2021-08-09 10:07 | Progress Note ---
Assessment and Plan Patient with significantly improved mental status now. We will reorder arterial duplex of her upper extremities as the patient now may be able to cooperate with the examination. Radiology note reviewed and patient does not have IV large enough to get a CTA of her arm. IV team may need to be consulted. If the patient is having embolic phenomenon, she may require a cardiac work-up for further evaluation. Subjective Date of service: 08/09/21 Principal diagnosis: PVD with ulceration on second digit left hand Interval history: Patient with a history of end-stage renal disease and noncompliance with outpatient dialysis as well as significant peripheral vascular disease presents with hand pain. On initial evaluation, the patient was significantly altered in her mental status. Today, the patient appears to be cooperative. She complains of pain only to the ulcer site at her left second digit. Intact motor sensation to the remainder of the finger and hand. Nonpalpable left radial pulse. Objective - Constitutional Vitals: Vital Signs - 12hr 08/08/21 08/09/21 08/09/21 23:16 04:37 09:27 Temperature 99.8 F H 99.0 F Pulse Rate 82 76 72 Respiratory 18 18 Rate Blood Pressure 159/70 145/67 Blood Pressure 136/61 [Left] O2 Sat by Pulse 94 93 Oximetry General appearance: Present: no acute distress - EENT Eyes: EOM intact ENT: other (Deaf) - Neck Neck: supple, normal ROM - Respiratory Respiratory effort: normal - Breasts Breasts: deferred Extremities: abnormal (per HPI) - Gastrointestinal General gastrointestinal: Present: deferred Rectal Exam: deferred - Genitourinary Female genitourinary: deferred - Psychiatric Psychiatric: cooperative - Labs CBC & Chem 7: 08/08/21 04:40 08/08/21 04:40 Medications & Allergies - Medications Allergies/Adverse Reactions: Allergies No Known Allergies Allergy (Verified 06/25/21 13:05) Home Medications: Home Medications Medication Instructions Recorded Confirmed Last Taken Type Cinacalcet [Sensipar] 30 mg PO QDAY 30 Days #30 tablet 02/26/21 08/08/21 07/06/21 Rx Hydralazine HCl 50 mg PO TID 30 Days #90 tab 03/25/21 08/08/21 07/06/21 Rx Valsartan [Diovan] 80 mg PO QDAY 30 Days #30 tab 03/25/21 08/08/21 07/07/21 Rx sevelamer HCL [Sevelamer HCl] 800 mg PO TID 30 Days #90 tab 03/25/21 08/08/21 07/06/21 Rx Acetaminophen [Acetaminophen TAB] 650 mg PO Q4H PRN tablet 04/01/21 08/08/21 07/06/21 Rx carvediloL [Coreg] 25 mg PO Q12HR tablet 04/01/21 08/08/21 07/06/21 Rx Clopidogrel [Plavix] 75 mg PO QDAY #90 tablet 06/24/21 08/08/21 07/06/21 Rx Pentoxifylline 400 mg PO DAILY #90 06/24/21 08/08/21 07/06/21 Rx Furosemide [Lasix TAB] 20 mg PO QDAY #30 tablet 06/25/21 08/08/21 07/06/21 Rx ISOSORBIDE MONOnitrate [Imdur ER] 30 mg PO QDAY #30 tablet 06/25/21 08/08/21 07/06/21 Rx Venlafaxine [Effexor 37.5mg tab] 37.5 mg PO BID #30 tablet 06/25/21 08/08/21 07/06/21 Rx Apixaban [Eliquis] 2.5 mg PO BID #180 07/07/21 08/08/21 Unknown Rx Pantoprazole [Protonix TAB] 40 mg PO BID #180 tablet 07/07/21 08/08/21 Unknown Rx ALPRAZolam [Xanax TAB] 0.25 mg PO Q8H PRN #12 tablet 07/09/21 08/08/21 Unknown Rx NIFEdipine XL [Procardia Xl] 30 mg PO Q12HR #60 tablet 07/09/21 08/08/21 08/07/21 23:00 Rx oxyCODONE /ACETAMINOPHEN [Percocet 1 tab PO Q8H PRN #15 tablet 07/09/21 08/08/21 Unknown Rx 5/325 mg] Active Medications: Generic Name Dose Route Start Last Admin Trade Name Freq PRN Reason Stop Dose Admin Acetaminophen 650 mg 08/07/21 22:17 Acetaminophen 325 Mg Tab PO Q4H PRN Pain MILD(1-3)/Fever >100.5/PALOMINO Alprazolam 0.25 mg 08/07/21 22:22 Alprazolam 0.25 Mg Tab PO Q8H PRN Anxiety Apixaban 2.5 mg 08/07/21 23:00 08/09/21 09:33 Apixaban 2.5 Mg Tab PO 2.5 mg BID SHRUTI Administration Carvedilol 25 mg 08/07/21 23:00 08/09/21 09:30 Carvedilol 25 Mg Tab PO 25 mg Q12HR SHRUTI Administration Cinacalcet 30 mg 08/08/21 10:00 08/09/21 09:33 Cinacalcet 30 Mg Tab PO 30 mg QDAY SHRUTI Administration Clopidogrel Bisulfate 75 mg 08/08/21 10:00 08/09/21 09:30 Clopidogrel 75 Mg Tab PO 75 mg QDAY SHRUTI Administration Colchicine 0.6 mg 08/08/21 08:00 08/08/21 10:29 Colchicine 0.6 Mg Tab PO 0.6 mg QOD SHRUTI Administration Furosemide 20 mg 08/08/21 10:00 08/09/21 09:30 Furosemide 20 Mg Tab PO 20 mg QDAY SHRUTI Administration Hydralazine HCl 50 mg 08/08/21 08:00 08/08/21 20:32 Hydralazine 25 Mg Tab PO 50 mg TID SHRUTI Administration Sodium Chloride 100 mls @ 999 mls/hr 08/07/21 13:29 Nacl 0.9% IV KEV PRN Hypotension Indomethacin 25 mg 08/08/21 07:00 08/09/21 05:35 Indomethacin 25 Mg Cap PO 25 mg Q8HR SHRUTI Administration Isosorbide Mononitrate 30 mg 08/08/21 10:00 08/08/21 12:34 Isosorbide Mononitrate Er 30 Mg Tab PO 30 mg QDAY SHRUTI Administration Metoclopramide HCl 2.5 mg 08/07/21 22:25 Metoclopramide 10 Mg/2 Ml Inj IV Q6H PRN Nausea And Vomiting Morphine Sulfate 2 mg 08/07/21 22:17 08/08/21 22:08 Morphine 2 Mg/1 Ml Inj IV 2 mg Q4H PRN Administration Pain, Moderate (4-6) Nifedipine 30 mg 08/07/21 23:00 08/09/21 09:29 Nifedipine Xl 30 Mg Tab PO 30 mg Q12HR SHRUTI Administration Ondansetron HCl 4 mg 08/07/21 22:17 Ondansetron 4 Mg/2 Ml Inj IV Q8H PRN Nausea And Vomiting Oxycodone/Acetaminophen 1 tab 08/07/21 22:17 Oxycodone /Acetaminophen 5-325mg Tab PO Q6H PRN Pain, Moderate (4-6) Pentoxifylline 400 mg 08/08/21 10:00 08/09/21 09:31 Pentoxifylline Er 400 Mg Tab PO 400 mg DAILY SHRUTI Administration Prednisone 10 mg 08/08/21 10:00 08/09/21 09:29 Prednisone 10 Mg Tab PO 10 mg QDAY SHRUTI Administration Sevelamer Carbonate 800 mg 08/08/21 08:00 08/09/21 08:00 Sevelamer Carbonate 800 Mg Tab PO 800 mg TIDWM SHRUTI Administration Sodium Chloride 10 ml 08/07/21 23:00 08/09/21 09:34 Sodium Chloride 0.9% 10 Ml Flush Syringe IV 10 ml BID SHRUTI Administration Sodium Chloride 10 ml 08/07/21 22:17 Sodium Chloride 0.9% 10 Ml Flush Syringe IV PRN PRN LINE FLUSH Valsartan 80 mg 08/08/21 10:00 08/08/21 10:47 Valsartan 40 Mg Tab PO 80 mg QDAY SHRUTI Administration Venlafaxine HCl 37.5 mg 08/07/21 23:00 08/09/21 09:31 Venlafaxine 37.5 Mg Tab PO 37.5 mg BID SHRUTI Administration
--- NOTE | 2021-08-09 11:29 | Progress Note ---
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 (4) Anemia in end-stage renal disease Current Visit: No Status: Acute Plan to address problem: Given erythropoietin on dialysis and follow-up hemoglobin (5) Hypertensive chronic kidney disease with stage 5 chronic kidney disease or end stage renal disease Current Visit: No Status: Acute Plan to address problem: monitor BP on current meds (6) Type 2 diabetes mellitus with diabetic chronic kidney disease Current Visit: No Status: Acute Plan to address problem: diabetes management as per primary attending Subjective Date of service: 08/09/21 Principal diagnosis: PVD with ulceration on second digit left hand Interval history: Patient seen and examined during HD, tolerating treatment well without acute issues Objective - Vital Signs Vital signs: Vital Signs - 12hr 08/09/21 08/09/21 04:37 09:27 Temperature 99.0 F Pulse Rate 76 72 Respiratory 18 Rate Blood Pressure 145/67 Blood Pressure 136/61 [Left] O2 Sat by Pulse 93 Oximetry - General Appearance General appearance: well-developed, appears stated age EENT: ATNC, PERRL, mucous membranes moist Neck: no JVD Respiratory: Present: Clear to Ascultation Cardiology: regular, S1S2 Gastrointestinal: normoactive bowel sounds Integumentary: no rash Neurologic: no focal deficit, alert and oriented x3, strength 5/5, CN 3-12 intact Psychiatric: mood/affect appropriate, cooperative - Lab 08/08/21 04:40 08/08/21 04:40 Most recent lab results Calcium 9.1 mg/dL (8.4-10.2) 08/08/21 04:40 Phosphorus 12.20 mg/dL (2.5-4.5) H 08/07/21 09:45 Magnesium 2.40 mg/dL (1.7-2.3) H 08/07/21 09:45 Medications & Allergies - Medications Allergies/Adverse Reactions: Allergies No Known Allergies Allergy (Verified 06/25/21 13:05) Home Medications: Home Medications Medication Instructions Recorded Confirmed Last Taken Type Cinacalcet [Sensipar] 30 mg PO QDAY 30 Days #30 tablet 02/26/21 08/08/21 07/06/21 Rx Hydralazine HCl 50 mg PO TID 30 Days #90 tab 03/25/21 08/08/21 07/06/21 Rx Valsartan [Diovan] 80 mg PO QDAY 30 Days #30 tab 03/25/21 08/08/21 07/07/21 Rx sevelamer HCL [Sevelamer HCl] 800 mg PO TID 30 Days #90 tab 03/25/21 08/08/21 07/06/21 Rx Acetaminophen [Acetaminophen TAB] 650 mg PO Q4H PRN tablet 04/01/21 08/08/21 07/06/21 Rx carvediloL [Coreg] 25 mg PO Q12HR tablet 04/01/21 08/08/21 07/06/21 Rx Clopidogrel [Plavix] 75 mg PO QDAY #90 tablet 06/24/21 08/08/21 07/06/21 Rx Pentoxifylline 400 mg PO DAILY #90 06/24/21 08/08/21 07/06/21 Rx Furosemide [Lasix TAB] 20 mg PO QDAY #30 tablet 06/25/21 08/08/21 07/06/21 Rx ISOSORBIDE MONOnitrate [Imdur ER] 30 mg PO QDAY #30 tablet 06/25/21 08/08/21 07/06/21 Rx Venlafaxine [Effexor 37.5mg tab] 37.5 mg PO BID #30 tablet 06/25/21 08/08/21 07/06/21 Rx Apixaban [Eliquis] 2.5 mg PO BID #180 07/07/21 08/08/21 Unknown Rx Pantoprazole [Protonix TAB] 40 mg PO BID #180 tablet 07/07/21 08/08/21 Unknown Rx ALPRAZolam [Xanax TAB] 0.25 mg PO Q8H PRN #12 tablet 07/09/21 08/08/21 Unknown Rx NIFEdipine XL [Procardia Xl] 30 mg PO Q12HR #60 tablet 07/09/21 08/08/21 2 23:00 Rx oxyCODONE /ACETAMINOPHEN [Percocet 1 tab PO Q8H PRN #15 tablet 07/09/21 08/08/21 Unknown Rx 5/325 mg] Active Medications: Generic Name Dose Route Start Last Admin Trade Name Freq PRN Reason Stop Dose Admin Acetaminophen 650 mg 08/07/21 22:17 Acetaminophen 325 Mg Tab PO Q4H PRN Pain MILD(1-3)/Fever >100.5/PALOMINO Alprazolam 0.25 mg 08/07/21 22:22 Alprazolam 0.25 Mg Tab PO Q8H PRN Anxiety Apixaban 2.5 mg 08/07/21 23:00 08/09/21 09:33 Apixaban 2.5 Mg Tab PO 2.5 mg BID SHRUTI Administration Carvedilol 25 mg 08/07/21 23:00 08/09/21 09:30 Carvedilol 25 Mg Tab PO 25 mg Q12HR SHRUTI Administration Cinacalcet 30 mg 08/08/21 10:00 08/09/21 09:33 Cinacalcet 30 Mg Tab PO 30 mg QDAY SHRUTI Administration Clopidogrel Bisulfate 75 mg 08/08/21 10:00 08/09/21 09:30 Clopidogrel 75 Mg Tab PO 75 mg QDAY SHRUTI Administration Colchicine 0.6 mg 08/08/21 08:00 08/08/21 10:29 Colchicine 0.6 Mg Tab PO 0.6 mg QOD SHRUTI Administration Furosemide 20 mg 08/08/21 10:00 08/09/21 09:30 Furosemide 20 Mg Tab PO 20 mg QDAY SHRUTI Administration Hydralazine HCl 50 mg 08/08/21 08:00 08/08/21 20:32 Hydralazine 25 Mg Tab PO 50 mg TID SHRUTI Administration Sodium Chloride 100 mls @ 999 mls/hr 08/07/21 13:29 Nacl 0.9% IV KEV PRN Hypotension Indomethacin 25 mg 08/08/21 07:00 08/09/21 05:35 Indomethacin 25 Mg Cap PO 25 mg Q8HR SHRUTI Administration Isosorbide Mononitrate 30 mg 08/08/21 10:00 08/08/21 12:34 Isosorbide Mononitrate Er 30 Mg Tab PO 30 mg QDAY SHRUTI Administration Metoclopramide HCl 2.5 mg 08/07/21 22:25 Metoclopramide 10 Mg/2 Ml Inj IV Q6H PRN Nausea And Vomiting Morphine Sulfate 2 mg 08/07/21 22:17 08/08/21 22:08 Morphine 2 Mg/1 Ml Inj IV 2 mg Q4H PRN Administration Pain, Moderate (4-6) Nifedipine 30 mg 08/07/21 23:00 08/09/21 09:29 Nifedipine Xl 30 Mg Tab PO 30 mg Q12HR SHRUTI Administration Ondansetron HCl 4 mg 08/07/21 22:17 Ondansetron 4 Mg/2 Ml Inj IV Q8H PRN Nausea And Vomiting Oxycodone/Acetaminophen 1 tab 08/07/21 22:17 Oxycodone /Acetaminophen 5-325mg Tab PO Q6H PRN Pain, Moderate (4-6) Pentoxifylline 400 mg 08/08/21 10:00 08/09/21 09:31 Pentoxifylline Er 400 Mg Tab PO 400 mg DAILY SHRUTI Administration Prednisone 10 mg 08/08/21 10:00 08/09/21 09:29 Prednisone 10 Mg Tab PO 10 mg QDAY SHRUTI Administration Sevelamer Carbonate 800 mg 08/08/21 08:00 08/09/21 08:00 Sevelamer Carbonate 800 Mg Tab PO 800 mg TIDWM SHRUTI Administration Sodium Chloride 10 ml 08/07/21 23:00 08/09/21 09:34 Sodium Chloride 0.9% 10 Ml Flush Syringe IV 10 ml BID SHRUTI Administration Sodium Chloride 10 ml 08/07/21 22:17 Sodium Chloride 0.9% 10 Ml Flush Syringe IV PRN PRN LINE FLUSH Valsartan 80 mg 08/08/21 10:00 08/08/21 10:47 Valsartan 40 Mg Tab PO 80 mg QDAY SHRUTI Administration Venlafaxine HCl 37.5 mg 08/07/21 23:00 08/09/21 09:31 Venlafaxine 37.5 Mg Tab PO 37.5 mg BID SHRUTI Administration
[2021-08-09] MEDS: MORPHINE 2 MG/1 ML INJ IV PRN (16:16)
[2021-08-09] MEDS: ALPRAZolam 0.25 MG TAB PO PRN (16:59)
[2021-08-09] MEDS: oxyCODONE /ACETAMINOPHEN 5-325MG TAB PO PRN (17:22)
[2021-08-09] MEDS ORDERED: ZIPRASIDONE MESYLATE 20 MG VIAL IM PRN (19:59)
[2021-08-09] MEDS ORDERED: WATER FOR INJ Sterile (PF) 10 ML IM PRN (22:45)
[2021-08-10] MEDS: INDOMETHACIN 25 MG CAP PO SCH ×3 (05:25→22:29)
[2021-08-10] MEDS: hydrALAZINE 25 MG TAB PO SCH ×3 (08:00→20:51)
[2021-08-10] MEDS: SEVELAMER CARBONATE 800 MG TAB PO SCH ×3 (08:00→17:52)
--- NOTE | 2021-08-10 08:37 | Progress Note ---
Assessment and Plan - Patient Problems (1) Hyperkalemia Current Visit: Yes Status: Acute Plan to address problem: Hyperkalemia treated in the emergency room with Kayexalate and also taken for emergent hemodialysis. Recheck potassium level after hemodialysis (2) Volume overload Current Visit: Yes Status: Acute Plan to address problem: Patient has multiple missed hemodialysis sessions Patient is extremely deaf Sister was counseled about Patient being taken for emergent treatment of Nephrology consult appreciated (3) Gangrene of toe of left foot Current Visit: Yes Status: Chronic Plan to address problem: Left great toe gangrenous Vascular surgery consulted Patient has peripheral arterial disease Patient may be a candidate for amputation of the left great toe Will defer to vascular surgery (4) Acute gout Current Visit: Yes Status: Deleted Qualifiers: Gout site: hand Plan to address problem: Differential diagnosis of acute gout versus pseudogout Colchicine and Indocin initiated (5) PAD (peripheral artery disease) Current Visit: Yes Status: Chronic Plan to address problem: Moderate to severe Vascular surgery/IR consulted (6) Hypertension Current Visit: Yes Status: Chronic Qualifiers: Hypertension type: primary hypertension Qualified Code(s): I10 - Essential (primary) hypertension Plan to address problem: Continue antihypertensives and adjust medications (7) A-fib Current Visit: Yes Status: Chronic Qualifiers: Atrial fibrillation type: persistent (not longstanding) Qualified Code(s): I48.19 - Other persistent atrial fibrillation; I48.1 - Persistent atrial fibrillation Plan to address problem: On Eliquis (8) Coronary artery disease Current Visit: Yes Status: Chronic Qualifiers: Coronary Disease-Associated Artery/Lesion type: [place] artery [place] vs. transplanted heart: [place] heart Plan to address problem: Patient on isosorbide mononitrate and aspirin (9) CHF (congestive heart failure) Current Visit: Yes Status: Chronic Qualifiers: Heart failure type: combined systolic and diastolic Plan to address problem: Continue Lasix The use of Lasix may be stopped because of the patient's hemodialysis which can be used for increased ultrafiltration (10) DVT prophylaxis Current Visit: No Status: Acute Plan to address problem: On anticoagulation GI prophylaxis (11) Advance care planning Current Visit: Yes Status: Acute Plan to address problem: Disease education conducted, care plan discussed, diagnosis discussed, prognosis discussed. Patient is full code. Patient acknowledges understanding and agreement with care plan. +30 minutes. Subjective Date of service: 08/08/21 Principal diagnosis: PVD with ulceration on second digit left hand Interval history: 56-year-old AAF patient with hypertension , peripheral arterial disease, end-stage renal disease on hemodialysis through a tunneled hemodialysis catheter presents with complaints of left hand pain and multiple missed dialysis sessions. At time of exam, the patient is demented and not appropriately responsive and no history was able to be obtained from the patient. The patient has left first toe gangrene. Her left hand and right hand appear to be equally warm. Unable to assess for sensation or motor system given patient's uncooperative state. Patient moves all 4 extremities. Patient winces with pain in abdomen the left hand is status. No ulcerations on the left hand. No fever no chills. Shortness of breath present because of the extreme. No chest pain. Some of the collateral history was given by her sister with whom she lives. Her name is Pancho. Patient's/sisters phone number on the demographics 08/08/2021 Patient with a revascularization procedure on left lower extremity Work-up for left upper extremity second finger ischemic ulcer Objective - Constitutional Vitals: Vital Signs - 12hr 08/09/21 08/09/21 08/09/21 21:10 21:21 22:00 Temperature 99.1 F Pulse Rate 79 Respiratory 20 20 Rate Respiratory 17 Rate [Left Lower Leg] Blood Pressure 128/56 157/81 O2 Sat by Pulse 95 Oximetry 08/09/21 08/09/21 08/09/21 22:03 22:42 23:02 Temperature 99.0 F Pulse Rate 82 82 Respiratory 18 18 Rate Respiratory Rate [Left Lower Leg] Blood Pressure 157/81 142/70 O2 Sat by Pulse 91 Oximetry 08/10/21 08/10/21 05:22 07:42 Temperature 98.2 F Pulse Rate Respiratory 18 Rate Respiratory Rate [Left Lower Leg] Blood Pressure 115/52 O2 Sat by Pulse 97 98 Oximetry General appearance: Present: no acute distress, well-nourished - EENT Eyes: PERRL, EOM intact ENT: hearing intact, clear oral mucosa Ears: bilateral: normal - Neck Neck: supple, normal ROM - Respiratory Respiratory effort: normal Respiratory: bilateral: CTA - Breasts Breasts: normal - Cardiovascular Rhythm: regular Heart Sounds: Present: S1 & S2. Absent: gallop, rub Extremities: pulses intact, No edema, normal color, Full ROM, abnormal (78 left heel ulcer and left great toe gangrenous changes) Extremity abnormal: other (Ischemic ulcer on the left upper extremity index finger) - Gastrointestinal General gastrointestinal: Present: soft, non-tender, non-distended, normal bowel sounds - Genitourinary Female genitourinary: normal - Integumentary Integumentary: clear, warm, dry - Musculoskeletal Musculoskeletal: 1, strength equal bilaterally - Neurologic Neurologic: moves all extremities - Psychiatric Psychiatric: memory intact, appropriate mood/affect, intact judgment & insight - Labs CBC & Chem 7: 08/11/21 10:15 08/11/21 10:15
--- NOTE | 2021-08-10 08:37 | Progress Note ---
Assessment and Plan - Patient Problems (1) Hyperkalemia Current Visit: Yes Status: Acute Plan to address problem: Hyperkalemia treated in the emergency room with Kayexalate and also taken for emergent hemodialysis. Recheck potassium level after hemodialysis (2) Volume overload Current Visit: Yes Status: Acute Plan to address problem: Patient has multiple missed hemodialysis sessions Patient is extremely deaf Sister was counseled about Patient being taken for emergent treatment of Nephrology consult appreciated (3) Gangrene of toe of left foot Current Visit: Yes Status: Chronic Plan to address problem: Left great toe gangrenous Vascular surgery consulted Patient has peripheral arterial disease Patient may be a candidate for amputation of the left great toe Will defer to vascular surgery (4) Acute gout Current Visit: Yes Status: Deleted Qualifiers: Gout site: hand Plan to address problem: Differential diagnosis of acute gout versus pseudogout Colchicine and Indocin initiated (5) PAD (peripheral artery disease) Current Visit: Yes Status: Chronic Plan to address problem: Moderate to severe Vascular surgery/IR consulted (6) Hypertension Current Visit: Yes Status: Chronic Qualifiers: Hypertension type: primary hypertension Qualified Code(s): I10 - Essential (primary) hypertension Plan to address problem: Continue antihypertensives and adjust medications (7) A-fib Current Visit: Yes Status: Chronic Qualifiers: Atrial fibrillation type: persistent (not longstanding) Qualified Code(s): I48.19 - Other persistent atrial fibrillation; I48.1 - Persistent atrial fibrillation Plan to address problem: On Eliquis (8) Coronary artery disease Current Visit: Yes Status: Chronic Qualifiers: Coronary Disease-Associated Artery/Lesion type: [place] artery [place] vs. transplanted heart: [place] heart Plan to address problem: Patient on isosorbide mononitrate and aspirin (9) CHF (congestive heart failure) Current Visit: Yes Status: Chronic Qualifiers: Heart failure type: combined systolic and diastolic Plan to address problem: Continue Lasix The use of Lasix may be stopped because of the patient's hemodialysis which can be used for increased ultrafiltration (10) DVT prophylaxis Current Visit: No Status: Acute Plan to address problem: On anticoagulation GI prophylaxis (11) Advance care planning Current Visit: Yes Status: Acute Plan to address problem: Disease education conducted, care plan discussed, diagnosis discussed, prognosis discussed. Patient is full code. Patient acknowledges understanding and agreement with care plan. +30 minutes. Subjective Date of service: 08/09/21 Principal diagnosis: PVD with ulceration on second digit left hand Interval history: 56-year-old AAF patient with hypertension , peripheral arterial disease, end-stage renal disease on hemodialysis through a tunneled hemodialysis catheter presents with complaints of left hand pain and multiple missed dialysis sessions. At time of exam, the patient is demented and not appropriately responsive and no history was able to be obtained from the patient. The patient has left first toe gangrene. Her left hand and right hand appear to be equally warm. Unable to assess for sensation or motor system given patient's uncooperative state. Patient moves all 4 extremities. Patient winces with pain in abdomen the left hand is status. No ulcerations on the left hand. No fever no chills. Shortness of breath present because of the extreme. No chest pain. Some of the collateral history was given by her sister with whom she lives. Her name is Pancho. Patient's/sisters phone number on the demographics 08/08/2021 Patient with a revascularization procedure on left lower extremity Work-up for left upper extremity second finger ischemic ulcer 08/09/2021 Patient for revascularization procedure on the left lower extremity Work-up for left upper extremity second finger ischemic ulcer Objective - Constitutional Vitals: Vital Signs - 12hr 08/09/21 08/09/21 08/09/21 21:10 21:21 22:00 Temperature 99.1 F Pulse Rate 79 Respiratory 20 20 Rate Respiratory 17 Rate [Left Lower Leg] Blood Pressure 128/56 157/81 O2 Sat by Pulse 95 Oximetry 08/09/21 08/09/21 08/09/21 22:03 22:42 23:02 Temperature 99.0 F Pulse Rate 82 82 Respiratory 18 18 Rate Respiratory Rate [Left Lower Leg] Blood Pressure 157/81 142/70 O2 Sat by Pulse 91 Oximetry 08/10/21 08/10/21 05:22 07:42 Temperature 98.2 F Pulse Rate Respiratory 18 Rate Respiratory Rate [Left Lower Leg] Blood Pressure 115/52 O2 Sat by Pulse 97 98 Oximetry General appearance: Present: no acute distress, well-nourished - EENT Eyes: PERRL, EOM intact ENT: hearing intact, clear oral mucosa Ears: bilateral: normal - Neck Neck: supple, normal ROM - Respiratory Respiratory effort: normal Respiratory: bilateral: CTA - Breasts Breasts: normal - Cardiovascular Heart rate: 76 Rhythm: regular Heart Sounds: Present: S1 & S2. Absent: gallop, rub Extremities: pulses intact, No edema, normal color, Full ROM, abnormal (Left heel ulcer #1 next left great toe gangrene) Extremity abnormal: other (Left index finger ischemic ulcer) - Gastrointestinal General gastrointestinal: Present: soft, non-tender, non-distended, normal bowel sounds - Genitourinary Female genitourinary: normal - Integumentary Integumentary: clear, warm, dry - Musculoskeletal Musculoskeletal: 1, strength equal bilaterally - Neurologic Neurologic: moves all extremities - Psychiatric Psychiatric: memory intact, appropriate mood/affect, intact judgment & insight - Labs CBC & Chem 7: 08/11/21 10:15 08/11/21 10:15
--- NOTE | 2021-08-10 09:30 | Progress Note ---
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 (4) Anemia in end-stage renal disease Current Visit: No Status: Acute Plan to address problem: Given erythropoietin on dialysis and follow-up hemoglobin (5) Hypertensive chronic kidney disease with stage 5 chronic kidney disease or end stage renal disease Current Visit: No Status: Acute Plan to address problem: monitor BP on current meds (6) Type 2 diabetes mellitus with diabetic chronic kidney disease Current Visit: No Status: Acute Plan to address problem: diabetes management as per primary attending Subjective Date of service: 08/10/21 Principal diagnosis: PVD with ulceration on second digit left hand Interval history: Patient seen at bedside , no acute distress, no over night events reported Objective - Vital Signs Vital signs: Vital Signs - 12hr 08/09/21 08/09/21 08/09/21 22:00 22:03 22:42 Temperature 99.0 F Pulse Rate 82 82 Respiratory 20 18 Rate Respiratory 17 Rate [Left Lower Leg] Blood Pressure 157/81 142/70 O2 Sat by Pulse 95 91 Oximetry 08/09/21 08/10/21 08/10/21 23:02 05:22 07:42 Temperature 98.2 F Pulse Rate Respiratory 18 18 Rate Respiratory Rate [Left Lower Leg] Blood Pressure 115/52 O2 Sat by Pulse 97 98 Oximetry - General Appearance General appearance: well-developed, well-nourished, appears stated age EENT: ATNC, PERRL, mucous membranes moist Neck: no JVD Respiratory: Present: Clear to Ascultation Cardiology: regular, S1S2 Gastrointestinal: normoactive bowel sounds Integumentary: no rash Neurologic: no focal deficit, alert and oriented x3, strength 5/5, CN 3-12 intact Psychiatric: mood/affect appropriate, cooperative - Lab 08/08/21 04:40 08/08/21 04:40 Most recent lab results Calcium 9.1 mg/dL (8.4-10.2) 08/08/21 04:40 Phosphorus 12.20 mg/dL (2.5-4.5) H 08/07/21 09:45 Magnesium 2.40 mg/dL (1.7-2.3) H 08/07/21 09:45 Medications & Allergies - Medications Allergies/Adverse Reactions: Allergies No Known Allergies Allergy (Verified 06/25/21 13:05) Home Medications: Home Medications Medication Instructions Recorded Confirmed Last Taken Type Cinacalcet [Sensipar] 30 mg PO QDAY 30 Days #30 tablet 02/26/21 08/08/21 07/06/21 Rx Hydralazine HCl 50 mg PO TID 30 Days #90 tab 03/25/21 08/08/21 07/06/21 Rx Valsartan [Diovan] 80 mg PO QDAY 30 Days #30 tab 03/25/21 08/08/21 07/07/21 Rx sevelamer HCL [Sevelamer HCl] 800 mg PO TID 30 Days #90 tab 03/25/21 08/08/21 07/06/21 Rx Acetaminophen [Acetaminophen TAB] 650 mg PO Q4H PRN tablet 04/01/21 08/08/21 07/06/21 Rx carvediloL [Coreg] 25 mg PO Q12HR tablet 04/01/21 08/08/21 07/06/21 Rx Clopidogrel [Plavix] 75 mg PO QDAY #90 tablet 06/24/21 08/08/21 07/06/21 Rx Pentoxifylline 400 mg PO DAILY #90 06/24/21 08/08/21 07/06/21 Rx Furosemide [Lasix TAB] 20 mg PO QDAY #30 tablet 06/25/21 08/08/21 07/06/21 Rx ISOSORBIDE MONOnitrate [Imdur ER] 30 mg PO QDAY #30 tablet 06/25/21 08/08/21 07/06/21 Rx Venlafaxine [Effexor 37.5mg tab] 37.5 mg PO BID #30 tablet 06/25/21 08/08/21 07/06/21 Rx Apixaban [Eliquis] 2.5 mg PO BID #180 07/07/21 08/08/21 Unknown Rx Pantoprazole [Protonix TAB] 40 mg PO BID #180 tablet 04/18/22 05/20/22 Unknown Rx ALPRAZolam [Xanax TAB] 0.25 mg PO Q8H PRN #12 tablet 07/09/21 08/08/21 Unknown Rx NIFEdipine XL [Procardia Xl] 30 mg PO Q12HR #60 tablet 07/09/21 08/08/21 08/07/21 23:00 Rx oxyCODONE /ACETAMINOPHEN [Percocet 1 tab PO Q8H PRN #15 tablet 07/09/21 08/08/21 Unknown Rx 5/325 mg] Active Medications: Generic Name Dose Route Start Last Admin Trade Name Freq PRN Reason Stop Dose Admin Acetaminophen 650 mg 08/07/21 22:17 Acetaminophen 325 Mg Tab PO Q4H PRN Pain MILD(1-3)/Fever >100.5/PALOMINO Alprazolam 0.25 mg 08/07/21 22:22 08/09/21 16:59 Alprazolam 0.25 Mg Tab PO 0.25 mg Q8H PRN Administration Anxiety Apixaban 2.5 mg 08/07/21 23:00 08/09/21 22:02 Apixaban 2.5 Mg Tab PO 2.5 mg BID SHRUTI Administration Carvedilol 25 mg 08/07/21 23:00 08/09/21 22:03 Carvedilol 25 Mg Tab PO 25 mg Q12HR SHRUTI Administration Cinacalcet 30 mg 08/08/21 10:00 08/09/21 09:33 Cinacalcet 30 Mg Tab PO 30 mg QDAY SHRUTI Administration Clopidogrel Bisulfate 75 mg 08/08/21 10:00 08/09/21 09:30 Clopidogrel 75 Mg Tab PO 75 mg QDAY SHRUTI Administration Colchicine 0.6 mg 08/08/21 08:00 08/08/21 10:29 Colchicine 0.6 Mg Tab PO 0.6 mg QOD SHRUTI Administration Furosemide 20 mg 08/08/21 10:00 08/09/21 09:30 Furosemide 20 Mg Tab PO 20 mg QDAY SHRUTI Administration Hydralazine HCl 50 mg 08/08/21 08:00 08/09/21 21:10 Hydralazine 25 Mg Tab PO 50 mg TID SHRUTI Administration Sodium Chloride 100 mls @ 999 mls/hr 08/07/21 13:29 Nacl 0.9% IV KEV PRN Hypotension Indomethacin 25 mg 08/08/21 07:00 08/10/21 05:25 Indomethacin 25 Mg Cap PO 25 mg Q8HR SHRUTI Administration Isosorbide Mononitrate 30 mg 08/08/21 10:00 08/09/21 10:00 Isosorbide Mononitrate Er 30 Mg Tab PO 30 mg QDAY SHRUTI Administration Metoclopramide HCl 2.5 mg 08/07/21 22:25 Metoclopramide 10 Mg/2 Ml Inj IV Q6H PRN Nausea And Vomiting Morphine Sulfate 2 mg 08/07/21 22:17 08/09/21 16:16 Morphine 2 Mg/1 Ml Inj IV 2 mg Q4H PRN Administration Pain, Moderate (4-6) Nifedipine 30 mg 08/07/21 23:00 08/09/21 22:04 Nifedipine Xl 30 Mg Tab PO 30 mg Q12HR SHRUTI Administration Ondansetron HCl 4 mg 08/07/21 22:17 Ondansetron 4 Mg/2 Ml Inj IV Q8H PRN Nausea And Vomiting Oxycodone/Acetaminophen 1 tab 08/07/21 22:17 08/09/21 17:22 Oxycodone /Acetaminophen 5-325mg Tab PO 1 tab Q6H PRN Administration Pain, Moderate (4-6) Pentoxifylline 400 mg 08/08/21 10:00 08/09/21 09:31 Pentoxifylline Er 400 Mg Tab PO 400 mg DAILY SHRUTI Administration Prednisone 10 mg 08/08/21 10:00 08/09/21 09:29 Prednisone 10 Mg Tab PO 10 mg QDAY SHRUTI Administration Sevelamer Carbonate 800 mg 08/08/21 08:00 08/09/21 17:22 Sevelamer Carbonate 800 Mg Tab PO 800 mg TIDWM SHRUTI Administration Sodium Chloride 10 ml 08/07/21 23:00 08/09/21 22:02 Sodium Chloride 0.9% 10 Ml Flush Syringe IV 10 ml BID SHRUTI Administration Sodium Chloride 10 ml 08/07/21 22:17 Sodium Chloride 0.9% 10 Ml Flush Syringe IV PRN PRN LINE FLUSH Sterile Water 1.2 ml 08/09/21 22:45 08/09/21 23:03 Water For Inj Sterile (Pf) 10 Ml IM 1.2 ml Q12HR PRN Administration FOR GEODON DILUTION. Valsartan 80 mg 08/08/21 10:00 08/09/21 10:00 Valsartan 40 Mg Tab PO 80 mg QDAY SHRUTI Administration Venlafaxine HCl 37.5 mg 08/07/21 23:00 08/09/21 22:01 Venlafaxine 37.5 Mg Tab PO 37.5 mg BID SHRUTI Administration Ziprasidone 20 mg 08/09/21 19:59 08/09/21 23:03 Ziprasidone Mesylate 20 Mg Vial IM 20 mg Q12HR PRN Administration Agitation
--- NOTE | 2021-08-10 09:40 | Progress Note ---
Assessment and Plan Awaiting ultrasound or CT of patient's arm to determine if intervention will be necessary for wound healing. Patient will need wound care consult. Additionally, the patient will need cardiac work-up to rule out embolic source. Subjective Date of service: 08/10/21 Principal diagnosis: PVD with ulceration on second digit left hand Interval history: Patient with history of significant PVD with left second finger ulceration. Awaiting ultrasound for further evaluation. Patient resting comfortably at time of examination. Patient with mittens on to prevent her from removing IVs and dressings. Objective - Constitutional Vitals: Vital Signs - 12hr 08/09/21 08/09/21 08/09/21 22:00 22:03 22:42 Temperature 99.0 F Pulse Rate 82 82 Respiratory 20 18 Rate Respiratory 17 Rate [Left Lower Leg] Blood Pressure 157/81 142/70 O2 Sat by Pulse 95 91 Oximetry 08/09/21 08/10/21 08/10/21 23:02 05:22 07:42 Temperature 98.2 F Pulse Rate Respiratory 18 18 Rate Respiratory Rate [Left Lower Leg] Blood Pressure 115/52 O2 Sat by Pulse 97 98 Oximetry General appearance: Present: no acute distress - EENT ENT: no hearing intact - Neck Neck: normal ROM - Respiratory Respiratory effort: normal - Gastrointestinal General gastrointestinal: Present: deferred Rectal Exam: deferred - Genitourinary Female genitourinary: deferred - Psychiatric Psychiatric: cooperative - Labs CBC & Chem 7: 08/08/21 04:40 08/08/21 04:40 Medications & Allergies - Medications Allergies/Adverse Reactions: Allergies No Known Allergies Allergy (Verified 06/25/21 13:05) Home Medications: Home Medications Medication Instructions Recorded Confirmed Last Taken Type Cinacalcet [Sensipar] 30 mg PO QDAY 30 Days #30 tablet 02/26/21 08/08/21 07/06/21 Rx Hydralazine HCl 50 mg PO TID 30 Days #90 tab 03/25/21 08/08/21 07/06/21 Rx Valsartan [Diovan] 80 mg PO QDAY 30 Days #30 tab 03/25/21 08/08/21 07/07/21 Rx sevelamer HCL [Sevelamer HCl] 800 mg PO TID 30 Days #90 tab 03/25/21 08/08/21 07/06/21 Rx Acetaminophen [Acetaminophen TAB] 650 mg PO Q4H PRN tablet 04/01/21 08/08/21 07/06/21 Rx carvediloL [Coreg] 25 mg PO Q12HR tablet 04/01/21 08/08/21 07/06/21 Rx Clopidogrel [Plavix] 75 mg PO QDAY #90 tablet 06/24/21 08/08/21 07/06/21 Rx Pentoxifylline 400 mg PO DAILY #90 06/24/21 08/08/21 07/06/21 Rx Furosemide [Lasix TAB] 20 mg PO QDAY #30 tablet 06/25/21 08/08/21 07/06/21 Rx ISOSORBIDE MONOnitrate [Imdur ER] 30 mg PO QDAY #30 tablet 06/25/21 08/08/21 07/06/21 Rx Venlafaxine [Effexor 37.5mg tab] 37.5 mg PO BID #30 tablet 06/25/21 08/08/21 07/06/21 Rx Apixaban [Eliquis] 2.5 mg PO BID #180 07/07/21 08/08/21 Unknown Rx Pantoprazole [Protonix TAB] 40 mg PO BID #180 tablet 07/07/21 08/08/21 Unknown Rx ALPRAZolam [Xanax TAB] 0.25 mg PO Q8H PRN #12 tablet 07/09/21 08/08/21 Unknown Rx NIFEdipine XL [Procardia Xl] 30 mg PO Q12HR #60 tablet 07/09/21 08/08/21 08/07/21 23:00 Rx oxyCODONE /ACETAMINOPHEN [Percocet 1 tab PO Q8H PRN #15 tablet 07/09/21 08/08/21 Unknown Rx 5/325 mg] Active Medications: Generic Name Dose Route Start Last Admin Trade Name Freq PRN Reason Stop Dose Admin Acetaminophen 650 mg 08/07/21 22:17 Acetaminophen 325 Mg Tab PO Q4H PRN Pain MILD(1-3)/Fever >100.5/PALOMINO Alprazolam 0.25 mg 08/07/21 22:22 08/09/21 16:59 Alprazolam 0.25 Mg Tab PO 0.25 mg Q8H PRN Administration Anxiety Apixaban 2.5 mg 08/07/21 23:00 08/09/21 22:02 Apixaban 2.5 Mg Tab PO 2.5 mg BID SHRUTI Administration Carvedilol 25 mg 08/07/21 23:00 08/09/21 22:03 Carvedilol 25 Mg Tab PO 25 mg Q12HR SHRUTI Administration Cinacalcet 30 mg 08/08/21 10:00 08/09/21 09:33 Cinacalcet 30 Mg Tab PO 30 mg QDAY SHRUTI Administration Clopidogrel Bisulfate 75 mg 08/08/21 10:00 08/09/21 09:30 Clopidogrel 75 Mg Tab PO 75 mg QDAY SHRUTI Administration Colchicine 0.6 mg 08/08/21 08:00 08/08/21 10:29 Colchicine 0.6 Mg Tab PO 0.6 mg QOD SHRUTI Administration Furosemide 20 mg 08/08/21 10:00 08/09/21 09:30 Furosemide 20 Mg Tab PO 20 mg QDAY SHRUTI Administration Hydralazine HCl 50 mg 08/08/21 08:00 08/09/21 21:10 Hydralazine 25 Mg Tab PO 50 mg TID SHRUTI Administration Sodium Chloride 100 mls @ 999 mls/hr 08/07/21 13:29 Nacl 0.9% IV KEV PRN Hypotension Indomethacin 25 mg 08/08/21 07:00 08/10/21 05:25 Indomethacin 25 Mg Cap PO 25 mg Q8HR SHRUTI Administration Isosorbide Mononitrate 30 mg 08/08/21 10:00 08/09/21 10:00 Isosorbide Mononitrate Er 30 Mg Tab PO 30 mg QDAY SHRUTI Administration Metoclopramide HCl 2.5 mg 08/07/21 22:25 Metoclopramide 10 Mg/2 Ml Inj IV Q6H PRN Nausea And Vomiting Morphine Sulfate 2 mg 08/07/21 22:17 08/09/21 16:16 Morphine 2 Mg/1 Ml Inj IV 2 mg Q4H PRN Administration Pain, Moderate (4-6) Nifedipine 30 mg 08/07/21 23:00 08/09/21 22:04 Nifedipine Xl 30 Mg Tab PO 30 mg Q12HR SHRUTI Administration Ondansetron HCl 4 mg 08/07/21 22:17 Ondansetron 4 Mg/2 Ml Inj IV Q8H PRN Nausea And Vomiting Oxycodone/Acetaminophen 1 tab 08/07/21 22:17 08/09/21 17:22 Oxycodone /Acetaminophen 5-325mg Tab PO 1 tab Q6H PRN Administration Pain, Moderate (4-6) Pentoxifylline 400 mg 08/08/21 10:00 08/09/21 09:31 Pentoxifylline Er 400 Mg Tab PO 400 mg DAILY SHRUTI Administration Prednisone 10 mg 08/08/21 10:00 08/09/21 09:29 Prednisone 10 Mg Tab PO 10 mg QDAY SHRUTI Administration Sevelamer Carbonate 800 mg 08/08/21 08:00 08/09/21 17:22 Sevelamer Carbonate 800 Mg Tab PO 800 mg TIDWM SHRUTI Administration Sodium Chloride 10 ml 08/07/21 23:00 08/09/21 22:02 Sodium Chloride 0.9% 10 Ml Flush Syringe IV 10 ml BID SHRUTI Administration Sodium Chloride 10 ml 08/07/21 22:17 Sodium Chloride 0.9% 10 Ml Flush Syringe IV PRN PRN LINE FLUSH Sterile Water 1.2 ml 08/09/21 22:45 08/09/21 23:03 Water For Inj Sterile (Pf) 10 Ml IM 1.2 ml Q12HR PRN Administration FOR GEODON DILUTION. Valsartan 80 mg 08/08/21 10:00 08/09/21 10:00 Valsartan 40 Mg Tab PO 80 mg QDAY SHRUTI Administration Venlafaxine HCl 37.5 mg 08/07/21 23:00 08/09/21 22:01 Venlafaxine 37.5 Mg Tab PO 37.5 mg BID SHRUTI Administration Ziprasidone 20 mg 08/09/21 19:59 08/09/21 23:03 Ziprasidone Mesylate 20 Mg Vial IM 20 mg Q12HR PRN Administration Agitation
[2021-08-10] MEDS: carvediloL 25 MG TAB PO SCH ×2 (10:21→22:30)
[2021-08-10] MEDS: APIXABAN 2.5 MG TAB PO SCH (10:22)
[2021-08-10] MEDS: CLOPIDOGREL 75 MG TAB PO SCH (10:22)
[2021-08-10] MEDS: predniSONE 10 MG TAB PO SCH (10:22)
[2021-08-10] MEDS: NIFEdipine XL 30 MG TAB PO SCH ×2 (10:22→22:30)
[2021-08-10] MEDS: FUROSEMIDE 20 MG TAB PO SCH (10:22)
[2021-08-10] MEDS: COLCHICINE 0.6 MG TAB PO SCH (10:22)
[2021-08-10] MEDS: VENLAFAXINE 37.5 MG TAB PO SCH ×2 (10:23→22:30)
[2021-08-10] MEDS: VALSARTAN 40 MG TAB PO SCH (10:23)
[2021-08-10] MEDS: PENTOXIFYLLINE ER 400 MG TAB PO SCH (10:24)
[2021-08-10] MEDS: CINACALCET 30 MG TAB PO SCH (10:24)
--- NOTE | 2021-08-10 19:41 | Event Note ---
Date: 08/10/21 Plan for revasc of the LLE tomorrow. This was scheduled as an outpatient. At the time, I will also perform an angiogram of the LUE. NPO except sips of water with meds after MN Hold Eliquis.
[2021-08-10] MEDS: PANTOPRAZOLE 20 MG TAB PO SCH (20:51)
[2021-08-11] MEDS: hydrALAZINE 25 MG TAB PO SCH ×3 (08:21→23:24)
[2021-08-11] MEDS: INDOMETHACIN 25 MG CAP PO SCH ×3 (08:26→23:30)
[2021-08-11] MEDS: SEVELAMER CARBONATE 800 MG TAB PO SCH ×3 (08:26→17:29)
[2021-08-11] MEDS: PANTOPRAZOLE 20 MG TAB PO SCH (10:21)
[2021-08-11 10:38] LABS: Hematocrit 26.7 % (30.3-42.9); Hemoglobin 8.5 gm/dl (10.1-14.3); Mean Corpuscular HGB Conc 32 % (30-34); Mean Corpuscular Volume 74 fl (79-97); Platelet Count 228 K/mm3 (140-440); Red Blood Count 3.62 M/mm3 (3.65-5.03)
[2021-08-11 10:55] LABS: Red Cell Distribution Width 23.4 % (13.2-15.2)
[2021-08-11 10:56] LABS: Calcium 7.7 mg/dL (8.4-10.2)
[2021-08-11] MEDS ORDERED: SODIUM CHLORIDE 0.9% 500 ML 500 ML IV SCH (11:00)
--- NOTE | 2021-08-11 11:27 | Event Note ---
Date: 08/11/21 CBC and BMP drawn. Potassium 5.9. Contacted Dr. Cedillo who will dialyze the patient today. Will reschedule procedure for tomorrow. Discussed with patient.
--- NOTE | 2021-08-11 11:27 | Progress Note ---
Assessment and Plan - Patient Problems (1) Gangrene of toe of left foot Current Visit: Yes Status: Chronic Plan to address problem: Left great toe gangrenous Vascular surgery consulted Patient has peripheral arterial disease For revascularization tomorrow (2) Hyperkalemia Current Visit: Yes Status: Acute Plan to address problem: Hyperkalemia resolved (3) Volume overload Current Visit: Yes Status: Acute Plan to address problem: Patient has multiple missed hemodialysis sessions Patient is extremely deaf Sister was counseled about Patient being taken for emergent treatment of Nephrology consult appreciated (4) Acute gout Current Visit: Yes Status: Acute Qualifiers: Gout site: hand Plan to address problem: Differential diagnosis of acute gout versus pseudogout Colchicine and Indocin initiated (5) PAD (peripheral artery disease) Current Visit: Yes Status: Chronic Plan to address problem: Moderate to severe Vascular surgery/IR consulted (6) Hypertension Current Visit: Yes Status: Chronic Qualifiers: Hypertension type: primary hypertension Qualified Code(s): I10 - Essential (primary) hypertension Plan to address problem: Continue antihypertensives and adjust medications (7) A-fib Current Visit: Yes Status: Chronic Qualifiers: Atrial fibrillation type: persistent (not longstanding) Qualified Code(s): I48.19 - Other persistent atrial fibrillation; I48.1 - Persistent atrial fibrillation Plan to address problem: On Eliquis (8) Coronary artery disease Current Visit: Yes Status: Chronic Qualifiers: Coronary Disease-Associated Artery/Lesion type: [place] artery [place] vs. transplanted heart: [place] heart Plan to address problem: Patient on isosorbide mononitrate and aspirin (9) CHF (congestive heart failure) Current Visit: Yes Status: Chronic Qualifiers: Heart failure type: combined systolic and diastolic Plan to address problem: Continue Lasix The use of Lasix may be stopped because of the patient's hemodialysis which can be used for increased ultrafiltration (10) Chronic heel ulcer Current Visit: Yes Status: Chronic Qualifiers: Laterality: left Plan to address problem: Left heel ulcer Wound care (11) Finger pain, left Current Visit: Yes Status: Acute Plan to address problem: Patient to get angiogram of the left upper extremity Try to get CT angiogram and ultrasound of the left upper extremity and was unsuccessful (12) Vascular dementia with behavioral disturbance Current Visit: Yes Status: Chronic Plan to address problem: Patient on Geodon intermittently Mental health consult requested May need fpc placement (13) Advance care planning Current Visit: Yes Status: Acute Plan to address problem: Disease education conducted, care plan discussed, diagnosis discussed, prognosis discussed. Patient is full code. Patient acknowledges understanding and agreement with care plan. +30 minutes. (14) DVT prophylaxis Current Visit: No Status: Acute Plan to address problem: On anticoagulation GI prophylaxis Subjective Date of service: 08/10/21 Principal diagnosis: PVD with ulceration on second digit left hand Interval history: 56-year-old AAF patient with hypertension , peripheral arterial disease, end-stage renal disease on hemodialysis through a tunneled hemodialysis catheter presents with complaints of left hand pain and multiple missed dialysis sessions. At time of exam, the patient is demented and not appropriately responsive and no history was able to be obtained from the patient. The patient has left first toe gangrene. Her left hand and right hand appear to be equally warm. Unable to assess for sensation or motor system given patient's uncooperative state. Patient moves all 4 extremities. Patient winces with pain in abdomen the left hand is status. No ulcerations on the left hand. No fever no chills. Shortness of breath present because of the extreme. No chest pain. Some of the collateral history was given by her sister with whom she lives. Her name is Pancho. Patient's/sisters phone number on the demographics 08/11/2021 Plan for revasc of the LLE tomorrow. This was scheduled as an outpatient. Also perform an angiogram of the LUE. NPO except sips of water with meds after MN Hold Eliquis. Patient has a small ischemic ulcer on the left index finger Objective - Constitutional Vitals: Vital Signs - 12hr 08/10/21 08/11/21 23:29 05:10 Temperature 98.4 F Respiratory 17 17 Rate Blood Pressure 107/54 General appearance: Present: no acute distress, well-nourished - EENT Eyes: PERRL, EOM intact ENT: hearing intact, clear oral mucosa Ears: bilateral: normal - Neck Neck: supple, normal ROM - Respiratory Respiratory effort: normal Respiratory: bilateral: CTA - Breasts Breasts: normal - Cardiovascular Heart rate: 78 Rhythm: regular Heart Sounds: Present: S1 & S2. Absent: gallop, rub Extremities: pulses intact, No edema, normal color, Full ROM, abnormal (Ischemic ulcer on the left index finger) Extremity abnormal: other (Ulcer on the left heel and gangrene of the great toe) - Gastrointestinal General gastrointestinal: Present: soft, non-tender, non-distended, normal bowel sounds - Genitourinary Female genitourinary: normal - Integumentary Integumentary: clear, warm, dry - Musculoskeletal Musculoskeletal: 1, strength equal bilaterally - Neurologic Neurologic: moves all extremities - Psychiatric Psychiatric: memory intact, appropriate mood/affect, intact judgment & insight - Labs CBC & Chem 7: 08/11/21 10:15 08/11/21 10:15 Labs: Abnormal lab results 08/11/21 08/11/21 Range/Units 10:15 10:15 WBC 12.3 H (4.5-11.0) K/mm3 RBC 3.62 L (3.65-5.03) M/mm3 Hgb 8.5 L (10.1-14.3) gm/dl Hct 26.7 L (30.3-42.9) % MCV 74 L (79-97) fl MCH 24 L (28-32) pg RDW 23.4 H (13.2-15.2) % Sodium 134 L (137-145) mmol/L Potassium 5.9 H D (3.6-5.0) mmol/L Chloride 94.9 L (98-107) mmol/L BUN 73 H (7-17) mg/dL Creatinine 8.1 H (0.6-1.2) mg/dL Calcium 7.7 L D (8.4-10.2) mg/dL
[2021-08-11 12:05] LABS: Basophils % (Manual) 0 % (0.0-1.8); Eosinophils % (Manual) 0 % (0.0-4.3); Total Cells Counted 100
[2021-08-11 12:09] LABS: Anisocytosis 2+; Hypochromasia 1+; Poikilocytosis 1+
[2021-08-11 12:10] LABS: Burr Cells 1+; Macrocytosis Few; Platelet Estimate Consistent w Auto; Target Cells Rare
--- NOTE | 2021-08-11 15:41 | Vascular Lab Report ---
DUPLEX DOPPLER UPPER EXTREMITY ARTERIAL, BILATERAL INDICATION / CLINICAL INFORMATION: ischemic LUE. TECHNIQUE: Arterial duplex examination of both upper extremities performed using B-mode, color flow a nd spectral Doppler assessment. FINDINGS: RIGHT: - Axillary: PSV 68 cm/sec. Triphasic waveform. - Brachial: PSV 68 cm/sec. Triphasic waveform. - Radial: PSV 61 cm/sec. Triphasic waveform. - Ulnar: PSV 21 cm/sec. Monophasic waveform. LEFT: - Axillary: PSV 81 cm/sec. Biphasic waveform. - Brachial: PSV 63 cm/sec. Triphasic waveform. - Radial: PSV 54 cm/sec. Biphasic waveform. - Ulnar: Absent color Doppler blood flow. IMPRESSION: 1. Multifocal atherosclerotic disease is present throughout both upper extremities. 2. The distal left ulnar artery is occluded. 3. Transition to monophasic waveform in the right distal ulnar artery suggests more proximal stenosis . The results were communicated by the spraying machine operator to Dr. Llamas at 1307. Scribed by: Ynes Mccullough RDMS, RVT, SOSAKS Scribed: 08/11/2021 1:50 PM I have reviewed the images, agree with this report, and edited this report as needed. Signer Name: Kvng Patel MD Signed: 08/11/2021 3:37 PM Workstation Name: [employer]
--- NOTE | 2021-08-11 15:42 | Vascular Lab Report ---
VL raven evaluation INDICATION / CLINICAL INFORMATION: UE PPG of ALL UE DIGITS. COMPARISON: None available. TECHNIQUE: Evaluation of the upper extremity digital waveforms. No images were obtained. FINDINGS/IMPRESSION: Absent waveforms are noted throughout the left upper extremity digits, consistent with arterial occlu esthela. Waveforms are seen throughout the right upper extremity digits. The results were communicated by the locomotive oiler to Dr. Llamas at 1307. Scribed by: Ynes Mccullough RDMS, RVT, SOSAKS Scribed: 08/11/2021 1:49 PM I have reviewed the images, agree with this report, and edited this report as needed. Signer Name: Kvng Patel MD Signed: 08/11/2021 3:38 PM Workstation Name: [id number]
[2021-08-11] MEDS: CINACALCET 30 MG TAB PO SCH (17:29)
[2021-08-11] MEDS: FUROSEMIDE 20 MG TAB PO SCH (17:29)
[2021-08-11] MEDS: CLOPIDOGREL 75 MG TAB PO SCH (17:29)
[2021-08-11] MEDS: carvediloL 25 MG TAB PO SCH ×2 (17:29→23:30)
[2021-08-11] MEDS: predniSONE 10 MG TAB PO SCH (17:29)
[2021-08-11] MEDS: PENTOXIFYLLINE ER 400 MG TAB PO SCH (17:30)
[2021-08-11] MEDS: ALPRAZolam 0.25 MG TAB PO PRN (17:30)
[2021-08-11] MEDS: VENLAFAXINE 37.5 MG TAB PO SCH ×2 (17:30→23:30)
[2021-08-11] MEDS: VALSARTAN 40 MG TAB PO SCH (17:31)
[2021-08-11] MEDS: NIFEdipine XL 30 MG TAB PO SCH ×2 (17:31→23:31)
[2021-08-11] MEDS: oxyCODONE /ACETAMINOPHEN 5-325MG TAB PO PRN (17:44)
--- NOTE | 2021-08-11 20:29 | Progress Note ---
Assessment and Plan - Patient Problems (1) Hyperkalemia Current Visit: Yes Status: Acute Plan to address problem: repeat K this AM was elevated at 5.9, arranged HD today for correction of hyperkalemia and optimization for vascular procedure in AM. 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 (4) Anemia in end-stage renal disease Current Visit: No Status: Acute Plan to address problem: Given erythropoietin on dialysis and follow-up hemoglobin (5) Hypertensive chronic kidney disease with stage 5 chronic kidney disease or end stage renal disease Current Visit: No Status: Acute Plan to address problem: monitor BP on current meds (6) Type 2 diabetes mellitus with diabetic chronic kidney disease Current Visit: No Status: Acute Plan to address problem: diabetes management as per primary attending Subjective Date of service: 08/11/21 Principal diagnosis: PVD with ulceration on second digit left hand Interval history: Patient seen at bedside , no acute distress, no over night events reporte. labs showed significant hyperkalemia with of 5.9 Objective - Vital Signs Vital signs: Vital Signs - 12hr 08/11/21 08/11/21 08/11/21 13:15 13:30 13:45 Temperature 98.0 F Pulse Rate 70 70 70 Respiratory 18 Rate Blood Pressure 121/65 119/67 124/69 Blood Pressure [Left] O2 Sat by Pulse Oximetry O2 Sat by Pulse 100 Oximetry [ Bilateral] 08/11/21 08/11/21 08/11/21 14:00 14:15 14:30 Temperature Pulse Rate 72 70 70 Respiratory Rate Blood Pressure 109/56 124/72 137/71 Blood Pressure [Left] O2 Sat by Pulse Oximetry O2 Sat by Pulse Oximetry [ Bilateral] 08/11/21 08/11/21 08/11/21 14:45 15:00 15:15 Temperature Pulse Rate 72 70 72 Respiratory Rate Blood Pressure 137/75 143/68 144/72 Blood Pressure [Left] O2 Sat by Pulse Oximetry O2 Sat by Pulse Oximetry [ Bilateral] 08/11/21 08/11/21 08/11/21 15:30 15:45 16:00 Temperature Pulse Rate 72 72 72 Respiratory Rate Blood Pressure 146/73 140/73 147/73 Blood Pressure [Left] O2 Sat by Pulse 100 Oximetry O2 Sat by Pulse Oximetry [ Bilateral] 08/11/21 08/11/21 08/11/21 16:15 16:30 16:45 Temperature Pulse Rate 72 72 76 Respiratory Rate Blood Pressure 149/72 148/77 140/74 Blood Pressure [Left] O2 Sat by Pulse Oximetry O2 Sat by Pulse Oximetry [ Bilateral] 08/11/21 08/11/21 08/11/21 17:00 17:18 17:28 Temperature 98.0 F 98 F Pulse Rate 74 118 H Respiratory 18 16 Rate Blood Pressure 152/74 140/80 Blood Pressure 150/67 [Left] O2 Sat by Pulse 100 Oximetry O2 Sat by Pulse 100 Oximetry [ Bilateral] - General Appearance General appearance: well-developed, well-nourished, appears stated age EENT: ATNC, PERRL, mucous membranes moist Neck: no JVD Respiratory: Present: Clear to Ascultation Cardiology: regular, S1S2 Gastrointestinal: normoactive bowel sounds Integumentary: no rash Neurologic: no focal deficit, alert and oriented x3, strength 5/5, CN 3-12 intact Psychiatric: mood/affect appropriate, cooperative - Lab 08/11/21 10:15 08/11/21 10:15 Most recent lab results Calcium 7.7 mg/dL (8.4-10.2) L D 08/11/21 10:15 Phosphorus 12.20 mg/dL (2.5-4.5) H 08/07/21 09:45 Magnesium 2.40 mg/dL (1.7-2.3) H 08/07/21 09:45 Medications & Allergies - Medications Allergies/Adverse Reactions: Allergies No Known Allergies Allergy (Verified 06/25/21 13:05) Home Medications: Home Medications Medication Instructions Recorded Confirmed Last Taken Type Cinacalcet [Sensipar] 30 mg PO QDAY 30 Days #30 tablet 02/26/21 08/08/21 07/06/21 Rx Hydralazine HCl 50 mg PO TID 30 Days #90 tab 03/25/21 08/08/21 07/06/21 Rx Valsartan [Diovan] 80 mg PO QDAY 30 Days #30 tab 03/25/21 08/08/21 07/07/21 Rx sevelamer HCL [Sevelamer HCl] 800 mg PO TID 30 Days #90 tab 03/25/21 08/08/21 07/06/21 Rx Acetaminophen [Acetaminophen TAB] 650 mg PO Q4H PRN tablet 04/01/21 08/08/21 07/06/21 Rx carvediloL [Coreg] 25 mg PO Q12HR tablet 04/01/21 08/08/21 07/06/21 Rx Clopidogrel [Plavix] 75 mg PO QDAY #90 tablet 06/24/21 08/08/21 07/06/21 Rx Pentoxifylline 400 mg PO DAILY #90 06/24/21 08/08/21 07/06/21 Rx Furosemide [Lasix TAB] 20 mg PO QDAY #30 tablet 06/25/21 08/08/21 07/06/21 Rx ISOSORBIDE MONOnitrate [Imdur ER] 30 mg PO QDAY #30 tablet 06/25/21 08/08/21 07/06/21 Rx Venlafaxine [Effexor 37.5mg tab] 37.5 mg PO BID #30 tablet 06/25/21 08/08/21 Rx Apixaban [Eliquis] 2.5 mg PO BID #180 07/07/21 08/08/21 Unknown Rx Pantoprazole [Protonix TAB] 40 mg PO BID #180 tablet 07/07/21 08/08/21 Unknown Rx ALPRAZolam [Xanax TAB] 0.25 mg PO Q8H PRN #12 tablet 07/09/21 08/08/21 Unknown Rx NIFEdipine XL [Procardia Xl] 30 mg PO Q12HR #60 tablet 07/09/21 08/08/21 08/07/21 23:00 Rx oxyCODONE /ACETAMINOPHEN [Percocet 1 tab PO Q8H PRN #15 tablet 07/09/21 08/08/21 Unknown Rx 5/325 mg] Active Medications: Generic Name Dose Route Start Last Admin Trade Name Freq PRN Reason Stop Dose Admin Acetaminophen 650 mg 08/07/21 22:17 Acetaminophen 325 Mg Tab PO Q4H PRN Pain MILD(1-3)/Fever >100.5/PALOMINO Alprazolam 0.25 mg 08/07/21 22:22 08/11/21 17:30 Alprazolam 0.25 Mg Tab PO 0.25 mg Q8H PRN Administration Anxiety Carvedilol 25 mg 08/07/21 23:00 08/11/21 17:29 Carvedilol 25 Mg Tab PO 25 mg Q12HR SHRUTI Administration Cinacalcet 30 mg 08/08/21 10:00 08/11/21 17:29 Cinacalcet 30 Mg Tab PO 30 mg QDAY SHRUTI Administration Clopidogrel Bisulfate 75 mg 08/08/21 10:00 08/11/21 17:29 Clopidogrel 75 Mg Tab PO 75 mg QDAY SHRUTI Administration Colchicine 0.6 mg 08/08/21 08:00 08/10/21 10:22 Colchicine 0.6 Mg Tab PO 0.6 mg QOD SHRUTI Administration Furosemide 20 mg 08/08/21 10:00 08/11/21 17:29 Furosemide 20 Mg Tab PO 20 mg QDAY SHRUTI Administration Hydralazine HCl 50 mg 08/08/21 08:00 08/11/21 17:28 Hydralazine 25 Mg Tab PO 50 mg TID SHRUTI Administration Sodium Chloride 100 mls @ 999 mls/hr 08/07/21 13:29 Nacl 0.9% IV KEV PRN Hypotension Sodium Chloride 500 mls @ 50 mls/hr 08/11/21 11:00 Nacl 0.9% 500 Ml IV 08/12/21 10:59 DIRECT SHRUTI Indomethacin 25 mg 08/08/21 07:00 08/11/21 17:29 Indomethacin 25 Mg Cap PO 25 mg Q8HR SHRUTI Administration Isosorbide Mononitrate 30 mg 08/08/21 10:00 08/11/21 17:28 Isosorbide Mononitrate Er 30 Mg Tab PO 30 mg QDAY SHRUTI Administration Metoclopramide HCl 2.5 mg 08/07/21 22:25 Metoclopramide 10 Mg/2 Ml Inj IV Q6H PRN Nausea And Vomiting Morphine Sulfate 2 mg 08/07/21 22:17 08/09/21 16:16 Morphine 2 Mg/1 Ml Inj IV 2 mg Q4H PRN Administration Pain, Moderate (4-6) Nifedipine 30 mg 08/07/21 23:00 08/11/21 17:31 Nifedipine Xl 30 Mg Tab PO 30 mg Q12HR SHRUTI Administration Ondansetron HCl 4 mg 08/07/21 22:17 Ondansetron 4 Mg/2 Ml Inj IV Q8H PRN Nausea And Vomiting Oxycodone/Acetaminophen 1 tab 08/07/21 22:17 08/11/21 17:44 Oxycodone /Acetaminophen 5-325mg Tab PO 1 tab Q6H PRN Administration Pain, Moderate (4-6) Pantoprazole Sodium 20 mg 08/10/21 20:00 08/11/21 10:21 Pantoprazole 20 Mg Tab PO Not Given QDAC SHRUTI Pentoxifylline 400 mg 08/08/21 10:00 08/11/21 17:30 Pentoxifylline Er 400 Mg Tab PO 400 mg DAILY SHRUTI Administration Prednisone 10 mg 08/08/21 10:00 08/11/21 17:29 Prednisone 10 Mg Tab PO 10 mg QDAY SHRUTI Administration Sevelamer Carbonate 800 mg 08/08/21 08:00 08/11/21 17:29 Sevelamer Carbonate 800 Mg Tab PO 800 mg TIDWM SHRUTI Administration Sodium Chloride 10 ml 08/07/21 23:00 08/11/21 17:31 Sodium Chloride 0.9% 10 Ml Flush Syringe IV 10 ml BID SHRUTI Administration Sodium Chloride 10 ml 08/07/21 22:17 Sodium Chloride 0.9% 10 Ml Flush Syringe IV PRN PRN LINE FLUSH Sterile Water 1.2 ml 08/09/21 22:45 08/09/21 23:03 Water For Inj Sterile (Pf) 10 Ml IM 1.2 ml Q12HR PRN Administration FOR GEODON DILUTION. Valsartan 80 mg 08/08/21 10:00 08/11/21 17:31 Valsartan 40 Mg Tab PO 80 mg QDAY SHRUTI Administration Venlafaxine HCl 37.5 mg 08/07/21 23:00 08/11/21 17:30 Venlafaxine 37.5 Mg Tab PO 37.5 mg BID SHRUTI Administration Ziprasidone 20 mg 08/09/21 19:59 08/09/21 23:03 Ziprasidone Mesylate 20 Mg Vial IM 20 mg Q12HR PRN Administration Agitation
--- NOTE | 2021-08-11 23:29 | Progress Note ---
Subjective Date of service: 08/11/21 Principal diagnosis: PVD with ulceration on second digit left hand Interval history: CONSULT DICTATED Objective Vital Signs Temp Pulse Resp BP BP Pulse Ox Pulse Ox 08/11/21 22:35 98.0 F 89 16 139/70 97 08/11/21 17:28 140/80 08/11/21 17:18 98 F 118 H 16 150/67 100 08/11/21 17:00 98.0 F 74 18 152/74 100 08/11/21 16:45 76 140/74 08/11/21 16:30 72 148/77 08/11/21 16:15 72 149/72 08/11/21 16:00 72 147/73 100 08/11/21 15:45 72 140/73 08/11/21 15:30 72 146/73 08/11/21 15:15 72 144/72 08/11/21 15:00 70 143/68 08/11/21 14:45 72 137/75 08/11/21 14:30 70 137/71 08/11/21 14:15 70 124/72 08/11/21 14:00 72 109/56 08/11/21 13:45 70 124/69 08/11/21 13:30 70 119/67 08/11/21 13:15 98.0 F 70 18 121/65 100 08/11/21 05:10 98.4 F 17 107/54 08/10/21 23:29 17 - Physical Examination Neck: Positive: neck supple - Labs and Meds CBC 08/11/21 Range/Units 10:15 WBC 12.3 H (4.5-11.0) K/mm3 RBC 3.62 L (3.65-5.03) M/mm3 Hgb 8.5 L (10.1-14.3) gm/dl Hct 26.7 L (30.3-42.9) % Plt Count 228 (140-440) K/mm3 Comprehensive Metabolic Panel 08/11/21 Range/Units 10:15 Sodium 134 L (137-145) mmol/L Potassium 5.9 H D (3.6-5.0) mmol/L Chloride 94.9 L (98-107) mmol/L Carbon Dioxide 22 (22-30) mmol/L BUN 73 H (7-17) mg/dL Creatinine 8.1 H (0.6-1.2) mg/dL Glucose 89 (65-100) mg/dL Calcium 7.7 L D (8.4-10.2) mg/dL - Imaging and Cardiology EKG: report reviewed (Sinus rhythm monitor ST-T wave changes.)
[2021-08-12] MEDS: oxyCODONE /ACETAMINOPHEN 5-325MG TAB PO PRN ×2 (04:30→18:04)
[2021-08-12] MEDS: INDOMETHACIN 25 MG CAP PO SCH ×3 (05:37→22:01)
--- NOTE | 2021-08-12 07:30 | Progress Note ---
Assessment and Plan - Patient Problems (1) Gangrene of toe of left foot Current Visit: Yes Status: Chronic Plan to address problem: Left great toe gangrenous Vascular surgery consulted Patient has peripheral arterial disease For revascularization tomorrow (2) Finger pain, left Current Visit: Yes Status: Acute Plan to address problem: Patient to get angiogram of the left upper extremity Try to get CT angiogram and ultrasound of the left upper extremity and was unsuccessful (3) Hyperkalemia Current Visit: Yes Status: Acute Plan to address problem: Hyperkalemia resolved (4) Volume overload Current Visit: Yes Status: Acute Plan to address problem: Patient has multiple missed hemodialysis sessions Patient is extremely deaf Sister was counseled about Patient being taken for emergent treatment of Nephrology consult appreciated (5) PAD (peripheral artery disease) Current Visit: Yes Status: Chronic Plan to address problem: Moderate to severe Vascular surgery/IR consulted (6) Hypertension Current Visit: Yes Status: Chronic Qualifiers: Hypertension type: primary hypertension Qualified Code(s): I10 - Essential (primary) hypertension Plan to address problem: Continue antihypertensives and adjust medications (7) A-fib Current Visit: Yes Status: Chronic Qualifiers: Atrial fibrillation type: persistent (not longstanding) Qualified Code(s): I48.19 - Other persistent atrial fibrillation; I48.1 - Persistent atrial fibrillation Plan to address problem: On Eliquis (8) Coronary artery disease Current Visit: Yes Status: Chronic Qualifiers: Coronary Disease-Associated Artery/Lesion type: [place] artery [place] vs. transplanted heart: [place] heart Plan to address problem: Patient on isosorbide mononitrate and aspirin (9) CHF (congestive heart failure) Current Visit: Yes Status: Chronic Qualifiers: Heart failure type: combined systolic and diastolic Plan to address problem: Continue Lasix The use of Lasix may be stopped because of the patient's hemodialysis which can be used for increased ultrafiltration (10) Chronic heel ulcer Current Visit: Yes Status: Chronic Qualifiers: Laterality: left Plan to address problem: Left heel ulcer Wound care (11) Vascular dementia with behavioral disturbance Current Visit: Yes Status: Chronic Plan to address problem: Patient on Geodon intermittently Mental health consult requested May need senior care placement (12) Advance care planning Current Visit: Yes Status: Acute Plan to address problem: Disease education conducted, care plan discussed, diagnosis discussed, prognosis discussed. Patient is full code. Patient acknowledges understanding and agreement with care plan. +30 minutes. (13) DVT prophylaxis Current Visit: No Status: Acute Plan to address problem: On anticoagulation GI prophylaxis Subjective Date of service: 08/11/21 Principal diagnosis: PVD with ulceration on second digit left hand Interval history: 56-year-old AAF patient with hypertension , peripheral arterial disease, end- stage renal disease on hemodialysis through a tunneled hemodialysis catheter presents with complaints of left hand pain and multiple missed dialysis sessions. At time of exam, the patient is demented and not appropriately responsive and no history was able to be obtained from the patient. The patient has left first toe gangrene. Her left hand and right hand appear to be equally warm. Unable to assess for sensation or motor system given patient's uncooperative state. Patient moves all 4 extremities. Patient winces with pain in abdomen the left hand is status. No ulcerations on the left hand. No fever no chills. Shortness of breath present because of the extreme. No chest pain. Some of the collateral history was given by her sister with whom she lives. Her name is Pancho. Patient's/sisters phone number on the demographics 08/10/2021 Plan for revasc of the LLE tomorrow. This was scheduled as an outpatient. Also perform an angiogram of the LUE. NPO except sips of water with meds after MN Hold Eliquis. Patient has a small ischemic ulcer on the left index finger 08/11/2021 For revascularization procedure tomorrow Postponed to tomorrow Objective - Constitutional Vitals: Vital Signs - 12hr 08/11/21 08/11/21 08/11/21 22:00 22:35 23:24 Temperature 98.0 F Pulse Rate 89 89 Respiratory 16 Rate Blood Pressure 139/70 139/70 O2 Sat by Pulse 97 97 Oximetry 08/11/21 08/12/21 23:30 05:07 Temperature 97.8 F Pulse Rate 89 Respiratory 18 Rate Blood Pressure 139/70 99/54 O2 Sat by Pulse Oximetry General appearance: Present: no acute distress, well-nourished - EENT Eyes: PERRL, EOM intact ENT: hearing intact, clear oral mucosa Ears: bilateral: normal - Neck Neck: supple, normal ROM - Respiratory Respiratory effort: normal Respiratory: bilateral: CTA - Breasts Breasts: normal - Cardiovascular Heart rate: 78 Rhythm: regular Heart Sounds: Present: S1 & S2. Absent: gallop, rub Extremities: pulses intact, No edema, normal color, Full ROM, abnormal (Left heel ulcer) Extremity abnormal: other (Left great toe gangrenous, Left second finger ischemic ulcer) - Gastrointestinal General gastrointestinal: Present: soft, non-tender, non-distended, normal bowel sounds - Genitourinary Female genitourinary: normal - Integumentary Integumentary: clear, warm, dry - Musculoskeletal Musculoskeletal: 1, strength equal bilaterally - Neurologic Neurologic: moves all extremities - Psychiatric Psychiatric: memory intact, appropriate mood/affect, intact judgment & insight - Labs CBC & Chem 7: 08/11/21 10:15 08/11/21 10:15 Labs: Abnormal lab results 08/11/21 08/11/21 Range/Units 10:15 10:15 WBC 12.3 H (4.5-11.0) K/mm3 RBC 3.62 L (3.65-5.03) M/mm3 Hgb 8.5 L (10.1-14.3) gm/dl Hct 26.7 L (30.3-42.9) % MCV 74 L (79-97) fl MCH 24 L (28-32) pg RDW 23.4 H (13.2-15.2) % Seg Neuts % (Manual) 95.0 H (40.0-70.0) % Lymphocytes % (Manual) 4.0 L (13.4-35.0) % Nucleated RBC % 1.0 H (0.0-0.9) % Seg Neutrophils # Man 11.7 H (1.8-7.7) K/mm3 Lymphocytes # (Manual) 0.5 L (1.2-5.4) K/mm3 Sodium 134 L (137-145) mmol/L Potassium 5.9 H D (3.6-5.0) mmol/L Chloride 94.9 L (98-107) mmol/L BUN 73 H (7-17) mg/dL Creatinine 8.1 H (0.6-1.2) mg/dL Calcium 7.7 L D (8.4-10.2) mg/dL
[2021-08-12] MEDS: hydrALAZINE 25 MG TAB PO SCH ×3 (07:53→21:58)
[2021-08-12] MEDS: SEVELAMER CARBONATE 800 MG TAB PO SCH ×3 (07:53→18:04)
[2021-08-12] MEDS: PANTOPRAZOLE 20 MG TAB PO SCH (07:56)
--- NOTE | 2021-08-12 09:32 | Progress Note ---
Assessment and Plan - Patient Problems (1) Hyperkalemia Current Visit: Yes Status: Acute Plan to address problem: Pt received HD yesterday for correction of hyperkalemia and optimization for vascular procedure. 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 (4) Anemia in end-stage renal disease Current Visit: No Status: Acute Plan to address problem: Given erythropoietin on dialysis and follow-up hemoglobin (5) Hypertensive chronic kidney disease with stage 5 chronic kidney disease or end stage renal disease Current Visit: No Status: Acute Plan to address problem: monitor BP on current meds (6) Type 2 diabetes mellitus with diabetic chronic kidney disease Current Visit: No Status: Acute Plan to address problem: diabetes management as per primary attending Subjective Date of service: 08/12/21 Principal diagnosis: PVD with ulceration on second digit left hand Interval history: Patient seen at bedside , no acute distress, no over night events reported. yesterday labs showed significant hyperkalemia with of 5.9, pt underwent HD for correction of hyperkalemia Objective - Vital Signs Vital signs: Vital Signs - 12hr 08/11/21 08/11/21 08/11/21 22:00 22:35 23:24 Temperature 98.0 F Pulse Rate 89 89 Respiratory 16 Rate Blood Pressure 139/70 139/70 O2 Sat by Pulse 97 97 Oximetry 08/11/21 08/12/21 08/12/21 23:30 05:07 07:53 Temperature 97.8 F Pulse Rate 89 Respiratory 18 Rate Blood Pressure 139/70 99/54 100/66 O2 Sat by Pulse Oximetry - General Appearance General appearance: well-developed, well-nourished, appears stated age EENT: ATNC, PERRL, mucous membranes moist Neck: no JVD Respiratory: Present: Clear to Ascultation Cardiology: regular, S1S2 Gastrointestinal: normoactive bowel sounds Integumentary: no rash Neurologic: no focal deficit, alert and oriented x3, strength 5/5, CN 3-12 intact Psychiatric: mood/affect appropriate, cooperative - Lab 08/11/21 10:15 08/11/21 10:15 Most recent lab results Calcium 7.7 mg/dL (8.4-10.2) L D 08/11/21 10:15 Phosphorus 12.20 mg/dL (2.5-4.5) H 08/07/21 09:45 Magnesium 2.40 mg/dL (1.7-2.3) H 08/07/21 09:45 Medications & Allergies - Medications Allergies/Adverse Reactions: Allergies No Known Allergies Allergy (Verified 06/25/21 13:05) Home Medications: Home Medications Medication Instructions Recorded Confirmed Last Taken Type Cinacalcet [Sensipar] 30 mg PO QDAY 30 Days #30 tablet 02/26/21 08/08/21 07/06/21 Rx Hydralazine HCl 50 mg PO TID 30 Days #90 tab 03/25/21 08/08/21 07/06/21 Rx Valsartan [Diovan] 80 mg PO QDAY 30 Days #30 tab 03/25/21 08/08/21 07/07/21 Rx sevelamer HCL [Sevelamer HCl] 800 mg PO TID 30 Days #90 tab 03/25/21 08/08/21 07/06/21 Rx Acetaminophen [Acetaminophen TAB] 650 mg PO Q4H PRN tablet 04/01/21 08/08/21 07/06/21 Rx carvediloL [Coreg] 25 mg PO Q12HR tablet 04/01/21 08/08/21 07/06/21 Rx Clopidogrel [Plavix] 75 mg PO QDAY #90 tablet 06/24/21 08/08/21 07/06/21 Rx Pentoxifylline 400 mg PO DAILY #90 06/24/21 08/08/21 07/06/21 Rx Furosemide [Lasix TAB] 20 mg PO QDAY #30 tablet 06/25/21 08/08/21 07/06/21 Rx ISOSORBIDE MONOnitrate [Imdur ER] 30 mg PO QDAY #30 tablet 06/25/21 08/08/21 07/06/21 Rx Venlafaxine [Effexor 37.5mg tab] 37.5 mg PO BID #30 tablet 06/25/21 08/08/21 07/06/21 Rx Apixaban [Eliquis] 2.5 mg PO BID #180 07/07/21 08/08/21 Unknown Rx Pantoprazole [Protonix TAB] 40 mg PO BID #180 tablet 07/07/21 08/08/21 Unknown Rx ALPRAZolam [Xanax TAB] 0.25 mg PO Q8H PRN #12 tablet 07/09/21 08/08/21 Unknown Rx NIFEdipine XL [Procardia Xl] 30 mg PO Q12HR #60 tablet 07/09/21 08/08/21 08/07/21 23:00 Rx oxyCODONE /ACETAMINOPHEN [Percocet 1 tab PO Q8H PRN #15 tablet 07/09/21 08/08/21 Unknown Rx 5/325 mg] Active Medications: Generic Name Dose Route Start Last Admin Trade Name Freq PRN Reason Stop Dose Admin Acetaminophen 650 mg 08/07/21 22:17 Acetaminophen 325 Mg Tab PO Q4H PRN Pain MILD(1-3)/Fever >100.5/PALOMINO Alprazolam 0.25 mg 08/07/21 22:22 08/11/21 17:30 Alprazolam 0.25 Mg Tab PO 0.25 mg Q8H PRN Administration Anxiety Carvedilol 25 mg 08/07/21 23:00 08/11/21 23:30 Carvedilol 25 Mg Tab PO 25 mg Q12HR SHRUTI Administration Cinacalcet 30 mg 08/08/21 10:00 08/11/21 17:29 Cinacalcet 30 Mg Tab PO 30 mg QDAY SHRUTI Administration Clopidogrel Bisulfate 75 mg 08/08/21 10:00 08/11/21 17:29 Clopidogrel 75 Mg Tab PO 75 mg QDAY SHRUTI Administration Colchicine 0.6 mg 08/08/21 08:00 08/10/21 10:22 Colchicine 0.6 Mg Tab PO 0.6 mg QOD SHRUTI Administration Furosemide 20 mg 08/08/21 10:00 08/11/21 17:29 Furosemide 20 Mg Tab PO 20 mg QDAY SHRUTI Administration Hydralazine HCl 50 mg 08/08/21 08:00 08/12/21 07:53 Hydralazine 25 Mg Tab PO Not Given TID SHRUTI Sodium Chloride 100 mls @ 999 mls/hr 08/07/21 13:29 Nacl 0.9% IV KEV PRN Hypotension Sodium Chloride 500 mls @ 50 mls/hr 08/11/21 11:00 Nacl 0.9% 500 Ml IV 08/12/21 10:59 DIRECT SHRUTI Indomethacin 25 mg 08/08/21 07:00 08/12/21 05:37 Indomethacin 25 Mg Cap PO 25 mg Q8HR SHRUTI Administration Isosorbide Mononitrate 30 mg 08/08/21 10:00 08/11/21 17:28 Isosorbide Mononitrate Er 30 Mg Tab PO 30 mg QDAY SHRUTI Administration Metoclopramide HCl 2.5 mg 08/07/21 22:25 Metoclopramide 10 Mg/2 Ml Inj IV Q6H PRN Nausea And Vomiting Morphine Sulfate 2 mg 08/07/21 22:17 08/09/21 16:16 Morphine 2 Mg/1 Ml Inj IV 2 mg Q4H PRN Administration Pain, Moderate (4-6) Nifedipine 30 mg 08/07/21 23:00 08/11/21 23:31 Nifedipine Xl 30 Mg Tab PO 30 mg Q12HR SHRUTI Administration Ondansetron HCl 4 mg 08/07/21 22:17 Ondansetron 4 Mg/2 Ml Inj IV Q8H PRN Nausea And Vomiting Oxycodone/Acetaminophen 1 tab 08/07/21 22:17 08/12/21 04:30 Oxycodone /Acetaminophen 5-325mg Tab PO 1 tab Q6H PRN Administration Pain, Moderate (4-6) Pantoprazole Sodium 20 mg 08/10/21 20:00 08/12/21 07:56 Pantoprazole 20 Mg Tab PO 20 mg QDAC SHRUTI Administration Pentoxifylline 400 mg 08/08/21 10:00 08/11/21 17:30 Pentoxifylline Er 400 Mg Tab PO 400 mg DAILY SHRUTI Administration Prednisone 10 mg 08/08/21 10:00 08/11/21 17:29 Prednisone 10 Mg Tab PO 10 mg QDAY SHRUTI Administration Sevelamer Carbonate 800 mg 08/08/21 08:00 08/12/21 07:53 Sevelamer Carbonate 800 Mg Tab PO Not Given TIDWM SHRUTI Sodium Chloride 10 ml 08/07/21 23:00 08/11/21 23:31 Sodium Chloride 0.9% 10 Ml Flush Syringe IV 10 ml BID SHRUTI Administration Sodium Chloride 10 ml 08/07/21 22:17 Sodium Chloride 0.9% 10 Ml Flush Syringe IV PRN PRN LINE FLUSH Sterile Water 1.2 ml 08/09/21 22:45 08/09/21 23:03 Water For Inj Sterile (Pf) 10 Ml IM 1.2 ml Q12HR PRN Administration FOR GEODON DILUTION. Valsartan 80 mg 08/08/21 10:00 08/11/21 17:31 Valsartan 40 Mg Tab PO 80 mg QDAY SHRUTI Administration Venlafaxine HCl 37.5 mg 08/07/21 23:00 08/11/21 23:30 Venlafaxine 37.5 Mg Tab PO 37.5 mg BID SHRUTI Administration Ziprasidone 20 mg 08/09/21 19:59 08/09/21 23:03 Ziprasidone Mesylate 20 Mg Vial IM 20 mg Q12HR PRN Administration Agitation
[2021-08-12 10:38] LABS: Hematocrit 28.1 % (30.3-42.9); Hemoglobin 8.6 gm/dl (10.1-14.3); Mean Corpuscular HGB Conc 31 % (30-34); Mean Corpuscular Volume 75 fl (79-97); Platelet Count 231 K/mm3 (140-440); Red Blood Count 3.75 M/mm3 (3.65-5.03)
[2021-08-12 10:39] LABS: Calcium 7.5 mg/dL (8.4-10.2); Red Cell Distribution Width 23.3 % (13.2-15.2)
[2021-08-12] MEDS: carvediloL 25 MG TAB PO SCH ×2 (10:39→21:58)
[2021-08-12] MEDS: VALSARTAN 40 MG TAB PO SCH (10:40)
[2021-08-12] MEDS: NIFEdipine XL 30 MG TAB PO SCH ×2 (10:47→22:01)
[2021-08-12] MEDS: predniSONE 10 MG TAB PO SCH (10:47)
[2021-08-12] MEDS: COLCHICINE 0.6 MG TAB PO SCH (10:47)
[2021-08-12] MEDS: CLOPIDOGREL 75 MG TAB PO SCH (10:47)
[2021-08-12] MEDS: FUROSEMIDE 20 MG TAB PO SCH (10:47)
[2021-08-12] MEDS: CINACALCET 30 MG TAB PO SCH (10:48)
--- NOTE | 2021-08-12 11:23 | Progress Note ---
Assessment and Plan Assessment and plan: Left foot gangrene Hyperkalemia Volume overload Peripheral vascular disease Hypertension Atrial fibrillation Coronary artery disease Congestive heart failure Chronic heel ulcer Vascular dementia 08/12/2021. Patient is to undergo revascularization today per vascular surgery. Continue hemodialysis per nephrology History Interval history: No new issues overnight Hospitalist Physical - Constitutional Vitals: Temp Pulse Resp BP Pulse Ox 97.8 F 69 18 96/50 97 08/12/21 05:07 08/12/21 10:39 08/12/21 05:07 08/12/21 10:40 08/11/21 22:35 General appearance: Present: no acute distress, well-nourished - EENT Eyes: Present: PERRL, EOM intact ENT: hearing intact, clear oral mucosa, dentition normal - Neck Neck: Present: supple, normal ROM - Respiratory Respiratory effort: normal Respiratory: bilateral: CTA - Cardiovascular Rhythm: regular Heart Sounds: Present: S1 & S2. Absent: gallop, rub - Extremities Extremities: no ischemia, No edema, Full ROM - Abdominal General gastrointestinal: soft, non-tender, non-distended, normal bowel sounds - Integumentary Integumentary: Present: clear, warm, dry - Neurologic Neurologic: CNII-XII intact, moves all extremities Results - Labs CBC & Chem 7: 08/12/21 10:01 08/12/21 10:01 Labs: Laboratory Last Values WBC 14.5 K/mm3 (4.5-11.0) H 08/12/21 10:01 RBC 3.75 M/mm3 (3.65-5.03) 08/12/21 10:01 Hgb 8.6 gm/dl (10.1-14.3) L 08/12/21 10:01 Hct 28.1 % (30.3-42.9) L 08/12/21 10:01 MCV 75 fl (79-97) L 08/12/21 10:01 MCH 23 pg (28-32) L 08/12/21 10:01 MCHC 31 % (30-34) 08/12/21 10:01 RDW 23.3 % (13.2-15.2) H 08/12/21 10:01 Plt Count 231 K/mm3 (140-440) 08/12/21 10:01 Lymph % (Auto) Car Wash Attendant Automatic 08/12/21 10:01 Meigs % (Auto) Car Wash Attendant Automatic 08/12/21 10:01 Eos % (Auto) Car Wash Attendant Automatic 08/12/21 10:01 Baso % (Auto) Car Wash Attendant Automatic 08/12/21 10:01 Lymph # (Auto) Car Wash Attendant Automatic 08/12/21 10:01 [place] # (Auto) Car Wash Attendant Automatic 08/12/21 10:01 Eos # (Auto) Car Wash Attendant Automatic 08/12/21 10:01 Baso # (Auto) Car Wash Attendant Automatic 08/12/21 10:01 Add Manual Diff Complete 08/11/21 10:15 Total Counted 100 08/11/21 10:15 Seg Neutrophils % Car Wash Attendant Automatic 08/12/21 10:01 Seg Neuts % (Manual) 95.0 % (40.0-70.0) H 08/11/21 10:15 Band Neutrophils % 0 % 08/11/21 10:15 Lymphocytes % (Manual) 4.0 % (13.4-35.0) L 08/11/21 10:15 Reactive Lymphs % (Man) 0 % 08/11/21 10:15 Monocytes % (Manual) 1.0 % (0.0-7.3) 08/11/21 10:15 Eosinophils % (Manual) 0 % (0.0-4.3) 08/11/21 10:15 Basophils % (Manual) 0 % (0.0-1.8) 08/11/21 10:15 Metamyelocytes % 0 % 08/11/21 10:15 Myelocytes % 0 % 08/11/21 10:15 Promyelocytes % 0 % 08/11/21 10:15 Blast Cells % 0 % 08/11/21 10:15 Nucleated RBC % 1.0 % (0.0-0.9) H 08/11/21 10:15 Seg Neutrophils # Car Wash Attendant Automatic 08/12/21 10:01 Seg Neutrophils # Man 11.7 K/mm3 (1.8-7.7) H 08/11/21 10:15 Band Neutrophils # 0.0 K/mm3 08/11/21 10:15 Lymphocytes # (Manual) 0.5 K/mm3 (1.2-5.4) L 08/11/21 10:15 Abs React Lymphs (Man) 0.0 K/mm3 08/11/21 10:15 Monocytes # (Manual) 0.1 K/mm3 (0.0-0.8) 08/11/21 10:15 Eosinophils # (Manual) 0.0 K/mm3 (0.0-0.4) 08/11/21 10:15 Basophils # (Manual) 0.0 K/mm3 (0.0-0.1) 08/11/21 10:15 Metamyelocytes # 0.0 K/mm3 08/11/21 10:15 Myelocytes # 0.0 K/mm3 08/11/21 10:15 Promyelocytes # 0.0 K/mm3 08/11/21 10:15 Blast Cells # 0.0 K/mm3 08/11/21 10:15 WBC Morphology Not Reportable 08/11/21 10:15 Hypersegmented Neuts Not Reportable 08/11/21 10:15 Hyposegmented Neuts 2+ 08/11/21 10:15 Hypogranular Neuts Not Reportable 08/11/21 10:15 Smudge Cells Not Reportable 08/11/21 10:15 Toxic Granulation Not Reportable 08/11/21 10:15 Toxic Vacuolation Not Reportable 08/11/21 10:15 Dohle Bodies Not Reportable 08/11/21 10:15 Pelger-Huet Anomaly Not Reportable 08/11/21 10:15 Cosme Rods Not Reportable 08/11/21 10:15 Platelet Estimate Consistent w auto 08/11/21 10:15 Clumped Platelets Not Reportable 08/11/21 10:15 Plt Clumps, EDTA Not Reportable 08/11/21 10:15 Large Platelets Not Reportable 08/11/21 10:15 Giant Platelets Not Reportable 08/11/21 10:15 Platelet Satelliting Not Reportable 08/11/21 10:15 Plt Morphology Comment Not Reportable 08/11/21 10:15 RBC Morphology Not Reportable 08/11/21 10:15 Dimorphic RBCs Not Reportable 08/11/21 10:15 Polychromasia Rare 08/11/21 10:15 Hypochromasia 1+ 08/11/21 10:15 Poikilocytosis 1+ 08/11/21 10:15 Anisocytosis 2+ 08/11/21 10:15 Microcytosis 1+ 08/11/21 10:15 Macrocytosis Few 08/11/21 10:15 Spherocytes Not Reportable 08/11/21 10:15 Pappenheimer Bodies Not Reportable 08/11/21 10:15 Sickle Cells Not Reportable 08/11/21 10:15 Target Cells Rare 08/11/21 10:15 Tear Drop Cells Not Reportable 08/11/21 10:15 Ovalocytes Not Reportable 08/11/21 10:15 Helmet Cells Not Reportable 08/11/21 10:15 [place] Bodies Not Reportable 08/11/21 10:15 Marion Rings Not Reportable 08/11/21 10:15 Angelina Cells 1+ 08/11/21 10:15 Bite Cells Not Reportable 08/11/21 10:15 Crenated Cell Not Reportable 08/11/21 10:15 Elliptocytes Few 08/11/21 10:15 Acanthocytes (Spur) Rare 08/11/21 10:15 Rouleaux Not Reportable 08/11/21 10:15 Hemoglobin C Crystals Not Reportable 08/11/21 10:15 Schistocytes Not Reportable 08/11/21 10:15 Malaria parasites Not Reportable 08/11/21 10:15 ESR 29 mm/Hr (0-20) 08/07/21 09:45 Jozef Bodies Not Reportable 08/11/21 10:15 Hem Pathologist Commnt No 08/11/21 10:15 Sodium 136 mmol/L (137-145) L 08/12/21 10:01 Potassium 4.6 mmol/L (3.6-5.0) D 08/12/21 10:01 Chloride 96.6 mmol/L (98-107) L 08/12/21 10:01 Carbon Dioxide 24 mmol/L (22-30) 08/12/21 10:01 Anion Gap 20 mmol/L 08/12/21 10:01 BUN 42 mg/dL (7-17) H 08/12/21 10:01 Creatinine 5.2 mg/dL (0.6-1.2) H 08/12/21 10:01 Estimated GFR 10 ml/min 08/12/21 10:01 BUN/Creatinine Ratio 8 % 08/12/21 10:01 Glucose 102 mg/dL (65-100) H 08/12/21 10:01 POC Glucose 94 mg/dL (70-105) 08/11/21 10:10 Calcium 7.5 mg/dL (8.4-10.2) L 08/12/21 10:01 Phosphorus 12.20 mg/dL (2.5-4.5) H 08/07/21 09:45 Magnesium 2.40 mg/dL (1.7-2.3) H 08/07/21 09:45 Total Bilirubin 0.40 mg/dL (0.1-1.2) 08/08/21 04:40 AST 18 units/L (5-40) 08/08/21 04:40 ALT 12 units/L (7-56) 08/08/21 04:40 Alkaline Phosphatase 107 units/L (35-129) 08/08/21 04:40 C-Reactive Protein 4.50 mg/dL (0.00-1.30) H 08/07/21 09:45 NT-Pro-B Natriuret Pep 79688 pg/mL (0-900) H 08/07/21 09:45 Total Protein 7.0 g/dL (6.3-8.2) 08/08/21 04:40 Albumin 3.4 g/dL (3.9-5) L 08/08/21 04:40 Albumin/Globulin Ratio 0.9 % 08/08/21 04:40 Hepatitis A IgM Ab Non-reactive (NonReactive) 08/07/21 09:45 Hep Bs Antigen Non-reactive (Negative) 08/07/21 09:45 Hep B Core IgM Ab Non-reactive (NonReactive) 08/07/21 09:45 Hepatitis C Antibody Non-reactive (NonReactive) 08/07/21 09:45 Pandya/IV: Voiding Method Incontinent Active Medications - Current Medications Current Medications: Generic Name Dose Route Start Last Admin Trade Name Freq PRN Reason Stop Dose Admin Acetaminophen 650 mg 08/07/21 22:17 Acetaminophen 325 Mg Tab PO Q4H PRN Pain MILD(1-3)/Fever >100.5/PALOMINO Alprazolam 0.25 mg 08/07/21 22:22 08/11/21 17:30 Alprazolam 0.25 Mg Tab PO 0.25 mg Q8H PRN Administration Anxiety Carvedilol 25 mg 08/07/21 23:00 08/12/21 10:39 Carvedilol 25 Mg Tab PO Not Given Q12HR SHRUTI Cinacalcet 30 mg 08/08/21 10:00 08/12/21 10:48 Cinacalcet 30 Mg Tab PO 30 mg QDAY SHRUTI Administration Clopidogrel Bisulfate 75 mg 08/08/21 10:00 08/12/21 10:47 Clopidogrel 75 Mg Tab PO 75 mg QDAY SHRUTI Administration Colchicine 0.6 mg 08/08/21 08:00 08/12/21 10:47 Colchicine 0.6 Mg Tab PO 0.6 mg QOD SHRUTI Administration Furosemide 20 mg 08/08/21 10:00 08/12/21 10:47 Furosemide 20 Mg Tab PO 20 mg QDAY SHRUTI Administration Hydralazine HCl 50 mg 08/08/21 08:00 08/12/21 07:53 Hydralazine 25 Mg Tab PO Not Given TID [facility] Sodium Chloride 100 mls @ 999 mls/hr 08/07/21 13:29 Nacl 0.9% IV KEV PRN Hypotension Indomethacin 25 mg 08/08/21 07:00 08/12/21 05:37 Indomethacin 25 Mg Cap PO 25 mg Q8HR [facility] Administration Isosorbide Mononitrate 30 mg 08/08/21 10:00 08/12/21 10:47 Isosorbide Mononitrate Er 30 Mg Tab PO 30 mg QDAY [facility] Administration Metoclopramide HCl 2.5 mg 08/07/21 22:25 Metoclopramide 10 Mg/2 Ml Inj IV Q6H PRN Nausea And Vomiting Morphine Sulfate 2 mg 08/07/21 22:17 08/09/21 16:16 Morphine 2 Mg/1 Ml Inj IV 2 mg Q4H PRN Administration Pain, Moderate (4-6) Nifedipine 30 mg 08/07/21 23:00 08/12/21 10:47 Nifedipine Xl 30 Mg Tab PO Not Given Q12HR [facility] Ondansetron HCl 4 mg 08/07/21 22:17 Ondansetron 4 Mg/2 Ml Inj IV Q8H PRN Nausea And Vomiting Oxycodone/Acetaminophen 1 tab 08/07/21 22:17 08/12/21 04:30 Oxycodone /Acetaminophen 5-325mg Tab PO 1 tab Q6H PRN Administration Pain, Moderate (4-6) Pantoprazole Sodium 20 mg 08/10/21 20:00 08/12/21 07:56 Pantoprazole 20 Mg Tab PO 20 mg QDAC SHRUTI Administration Pentoxifylline 400 mg 08/08/21 10:00 08/11/21 17:30 Pentoxifylline Er 400 Mg Tab PO 400 mg DAILY SHRUTI Administration Prednisone 10 mg 08/08/21 10:00 08/12/21 10:47 Prednisone 10 Mg Tab PO 10 mg QDAY SHRUTI Administration Sevelamer Carbonate 800 mg 08/08/21 08:00 08/12/21 07:53 Sevelamer Carbonate 800 Mg Tab PO Not Given TIDWM SHRUIT Sodium Chloride 10 ml 08/07/21 23:00 08/12/21 10:47 Sodium Chloride 0.9% 10 Ml Flush Syringe IV 10 ml BID SHRUTI Administration Sodium Chloride 10 ml 08/07/21 22:17 Sodium Chloride 0.9% 10 Ml Flush Syringe IV PRN PRN LINE FLUSH Sterile Water 1.2 ml 08/09/21 22:45 08/09/21 23:03 Water For Inj Sterile (Pf) 10 Ml IM 1.2 ml Q12HR PRN Administration FOR GEODON DILUTION. Valsartan 80 mg 08/08/21 10:00 08/12/21 10:40 Valsartan 40 Mg Tab PO Not Given QDAY SHRUTI Venlafaxine HCl 37.5 mg 08/07/21 23:00 08/11/21 23:30 Venlafaxine 37.5 Mg Tab PO 37.5 mg BID SHRUTI Administration Ziprasidone 20 mg 08/09/21 19:59 08/09/21 23:03 Ziprasidone Mesylate 20 Mg Vial IM 20 mg Q12HR PRN Administration Agitation Nutrition/Malnutrition Assess - Dietary Evaluation Nutrition/Malnutrition Findings: Nutrition Notes Start: 08/08/21 14:07 Freq: Status: Active Protocol: Document 08/08/21 14:07 [facility] (Rec: 08/08/21 14:17 [facility] [id number]) Nutrition Notes Need for Assessment generated from: director occupational Initial or Follow up Assessment Current Diagnosis CKD (stage V CKD),Coronary Artery Disease,Hypertension, Heart Failure Other Pertinent Diagnosis Volume overload, (L) foot ulcers, Acute gout, afib, Peripheral artery dz Current Diet Renal Labs/Tests BUN 69 Cr 7.6 BG 64 Pertinent Medications Sensipar, Lasix, Prednisone, Renvela Height 5 ft 8 in Weight 58.967 kg [place] Body Weight (kg) 63.63 BMI 19.8 Weight Status Appropriate Subjective/Other Information Pt screened for skin risk ( Martin score: 12). Pt with missed multiple HD sessions; also with chronic (L) foot ulcers and a new (L) 2nd finger ulceration. Burn Absent Trauma Absent Minimum of two criteria No #1 Nutrition Diagnosis Increased nutrient needs ( specify in comment below) Comments: protein Etiology increased demands of healing As Evidenced by Signs and Symptoms pt with multiple areas of skin breakdown Is patient on ventilator? No Is Patient Ambulatory and/or Out of Bed No REE-([place]-confined to bed) 1478.472 Kcal/Kg value to use for calculation 30 Approximate Energy Requirements Using 1769 kcal/Kg Calculation Used for Recommendations Kcal/kg Additional Notes Pro needs >1.2g/kg: >71g/day Fluid needs 1-1.5L/day Nutrition Intervention Change Diet Order: Continue current diet order Add Supplement/Snack (indicate name/kcal Nepro once daily /protein ) Provides kCal: 425 Provides Protein (gm) 19 Goal #1 PO intake of meals plus ONS to meet at least 75% energy and pro needs Goal #2 Wt maintenance Anticipated Discharge Needs: Adequate protein intake for healing and wt maintenance; 1- 2 ONS daily for increased protein intake Follow-Up By: 08/12/21 Additional Comments F/U: intakes (meals/ONS)
--- NOTE | 2021-08-12 12:11 | Progress Note ---
Assessment and Plan 1. Peripheral vascular disease 2. Essential hypertension 3. End-stage renal disease on hemodialysis 4. Essential hypertension 5. Type 2 diabetes mellitus 6. Hyper lipidemia Plan Cardiac jacome patient is stable management of peripheral ischemic ulcers and peripheral vascular disease as per vascular surgeon note. Subjective Date of service: 08/12/21 Principal diagnosis: PVD with ulceration on second digit left hand Interval history: No cardiac symptoms. Objective Vital Signs Temp Pulse Resp BP BP Pulse Ox Pulse Ox 08/12/21 10:40 96/50 08/12/21 10:39 69 96/50 08/12/21 07:53 100/66 08/12/21 05:07 97.8 F 18 99/54 08/11/21 23:30 89 139/70 08/11/21 23:24 89 139/70 08/11/21 22:35 98.0 F 89 16 139/70 97 08/11/21 22:00 97 08/11/21 17:28 140/80 08/11/21 17:18 98 F 118 H 16 150/67 100 08/11/21 17:00 98.0 F 74 18 152/74 100 08/11/21 16:45 76 140/74 08/11/21 16:30 72 148/77 08/11/21 16:15 72 149/72 08/11/21 16:00 72 147/73 100 08/11/21 15:45 72 140/73 08/11/21 15:30 72 146/73 08/11/21 15:15 72 144/72 08/11/21 15:00 70 143/68 08/11/21 14:45 72 137/75 08/11/21 14:30 70 137/71 08/11/21 14:15 70 124/72 08/11/21 14:00 72 109/56 08/11/21 13:45 70 124/69 08/11/21 13:30 70 119/67 08/11/21 13:15 98.0 F 70 18 121/65 100 - Physical Examination General: Appears Well, No Apparent Distress HEENT: Positive: PERRL, Normocephaly, Mucus Membranes Moist Neck: Positive: neck supple, trachea midline. Negative: JVD/HJR Cardiac: Positive: Regular Rate, S1/S2, PMI, Laterally Displaced. Negative: S3, S4 Lungs: Positive: clear to auscultation, No Wheeze, Rales, Rhonchi Abdomen: Positive: Soft, Active Bowel Sounds Gait: Normal Gait Extremities: Present: Other (Left leg in bandages and elevated toes look ischemic) - Labs and Meds CBC 08/12/21 Range/Units 10:01 WBC 14.5 H (4.5-11.0) K/mm3 RBC 3.75 (3.65-5.03) M/mm3 Hgb 8.6 L (10.1-14.3) gm/dl Hct 28.1 L (30.3-42.9) % Plt Count 231 (140-440) K/mm3 Lymph # (Auto) Tool Supervisor [place] # (Auto) Tool Supervisor Eos # (Auto) Tool Supervisor Baso # (Auto) Tool Supervisor Comprehensive Metabolic Panel 08/12/21 Range/Units 10:01 Sodium 136 L (137-145) mmol/L Potassium 4.6 D (3.6-5.0) mmol/L Chloride 96.6 L (98-107) mmol/L Carbon Dioxide 24 (22-30) mmol/L BUN 42 H (7-17) mg/dL Creatinine 5.2 H (0.6-1.2) mg/dL Glucose 102 H (65-100) mg/dL Calcium 7.5 L (8.4-10.2) mg/dL - Imaging and Cardiology EKG: report reviewed (Sinus rhythm monitor ST-T wave changes.)
[2021-08-12] MEDS ORDERED: HEPARIN/NS 5000 UNIT/500ML 1,000 ML IR ONE (13:21)
[2021-08-12] MEDS ORDERED: HEPARIN 10,000 UNITS/10 ML VIAL ONE (13:21)
[2021-08-12] MEDS ORDERED: ceFAZolin/Water 2 GM/20 ML 2 GM/20 ML SYRINGE IV ONE (13:22)
[2021-08-12] MEDS: MIDAZOLAM 2 MG/2 ML INJ ONE ×2 (13:25→13:54)
[2021-08-12] MEDS: fentaNYL 100 MCG/2 ML INJ ONE ×2 (13:25→13:54)
[2021-08-12] MEDS ORDERED: HEPARIN/NS 5000 UNIT/500ML 500 ML IR ONE (13:38)
--- NOTE | 2021-08-12 14:08 | Event Note ---
Date: 08/12/21 Diagnostic angiogram of the left upper extremity demonstrates small artery disease with occlusion of most of the left upper extremity secondary to peripheral vascular disease perhaps from end-stage renal disease without compliance. Diagnostic angiogram of the left lower extremity demonstrates patency of the anterior tibial artery to the level of the ankle, and subsequently small artery disease of the dorsalis pedis. The left lower extremity has been revascularized previously and cannot be revascularized further at this time. The left upper extremity has no bypass or revascularization options. Options include cilostazol, but patient has heart failure which is a contraindication. Other options include Nitropaste administered to the area around the gangrene twice a day which can be discussed with the patient's sister at a later time. Patient should be evaluated for hyperbaric oxygen by outpatient wound care. I discussed the findings with the patient's sister. Keep flat for 4 hours. Restored diet.
--- NOTE | 2021-08-12 14:08 | Post Operative Note ---
Date of procedure: 08/12/21 Pre-op diagnosis: PVD with gangrene of the LUE and LLE Post-op diagnosis: same Findings: Angiogram of the left upper extremity demonstrates findings compatible with small artery disease with occlusive disease throughout the ulnar artery, with occlusion of the palmar arch and occlusion of the distal most radial artery. No reconstitution of anything of size for bypass or endovascular reconstruction. Angiogram of the left lower extremity demonstrates small artery disease of the dorsalis pedis with patency of the recently revascularized anterior tibial artery. There is chronic total occlusion of the posterior tibial artery and most of the peroneal artery without reconstitution of anything of size for bypass or endovascular reconstruction. Procedure: 1. Ultrasound-guided access of the right common femoral artery. 2. Angiography of the right lower extremity. 3. Selection of the abdominal aorta with angiography. 4. Selection of the left external iliac artery, superficial femoral artery, and popliteal artery with angiography of the left lower extremity. 5. Selection of the left subclavian artery with angiography of the left upper extremity. 6. Selection of the left axillary artery, brachial artery, and radial artery with angiography of the left upper extremity. 7. Closure of the right common femoral artery with 6 Norwegian Pro style. Anesthesia: local (with conscious sedation) Surgeon: TASHIA HER Estimated blood loss: minimal Condition: stable Disposition: floor
--- NOTE | 2021-08-12 14:11 | Operative Report ---
Operative Report Operative Report: EXAM: 1. Ultrasound-guided access of the right common femoral artery. 2. Angiography of the right lower extremity. 3. Selection of the abdominal aorta with angiography. 4. Selection of the left external iliac artery, superficial femoral artery, and popliteal artery with angiography of the left lower extremity. 5. Selection of the left subclavian artery with angiography of the left upper extremity. 6. Selection of the left axillary artery, brachial artery, and radial artery with angiography of the left upper extremity. 7. Closure of the right common femoral artery with 6 Lithuanian Pro style. DATE: 08/12/2021 EXHIBIT ELECTRICIAN: TASHIA HER MD INDICATION: PVD with ulceration and gangrene of the left 1st digit and left upper extremity. MEDICATIONS: Please see nursing report for full details. DEVICES: [ ] CONTRAST: [ ] PROCEDURE: [ ] FINDINGS: [ ] IMPRESSION: [ ]
[2021-08-12] MEDS: VENLAFAXINE 37.5 MG TAB PO SCH ×2 (18:05→22:01)
[2021-08-12] MEDS: PENTOXIFYLLINE ER 400 MG TAB PO SCH (18:05)
[2021-08-13] MEDS: oxyCODONE /ACETAMINOPHEN 5-325MG TAB PO PRN ×2 (00:07→08:31)
[2021-08-13] MEDS: ALPRAZolam 0.25 MG TAB PO PRN ×2 (01:05→09:32)
[2021-08-13] MEDS: INDOMETHACIN 25 MG CAP PO SCH ×3 (05:49→22:09)
[2021-08-13] MEDS: hydrALAZINE 25 MG TAB PO SCH ×3 (09:02→21:56)
[2021-08-13] MEDS: SEVELAMER CARBONATE 800 MG TAB PO SCH ×3 (09:08→17:11)
--- NOTE | 2021-08-13 09:11 | XRay Report ---
CHEST 2 VIEWS INDICATION / CLINICAL INFORMATION: HBOT; preop. COMPARISON: 08/07/21. FINDINGS: SUPPORT DEVICES: The position of the left jugular dialysis catheter has not changed with the tip over lying the inferior right atrium. HEART / MEDIASTINUM: Mild cardiomegaly is stable. Pulmonary vascular congestion appears slightly impr link. LUNGS / PLEURA: Mildly decreased lung volumes. Mild pleuroparenchymal opacity in the left lower hemit horax with partial obscuration of the hemidiaphragm is new. No pneumothorax. ADDITIONAL FINDINGS: No significant additional findings. IMPRESSION: Mild developing pleuroparenchymal disease in the left lower hemithorax laterally. Signer Name: Kyler Dela Cruz MD Signed: 08/13/2021 9:07 AM Workstation Name: [id number]
[2021-08-13] MEDS: VALSARTAN 40 MG TAB PO SCH (09:33)
[2021-08-13] MEDS: PANTOPRAZOLE 20 MG TAB PO SCH (09:33)
[2021-08-13] MEDS: carvediloL 25 MG TAB PO SCH ×2 (09:33→22:09)
[2021-08-13] MEDS: CLOPIDOGREL 75 MG TAB PO SCH (09:38)
[2021-08-13] MEDS: CINACALCET 30 MG TAB PO SCH (09:38)
[2021-08-13] MEDS: VENLAFAXINE 37.5 MG TAB PO SCH ×2 (09:38→22:09)
[2021-08-13] MEDS: predniSONE 10 MG TAB PO SCH (09:38)
[2021-08-13] MEDS: FUROSEMIDE 20 MG TAB PO SCH (09:39)
[2021-08-13] MEDS: NIFEdipine XL 30 MG TAB PO SCH ×2 (09:40→22:09)
[2021-08-13] MEDS: PENTOXIFYLLINE ER 400 MG TAB PO SCH (09:44)
--- NOTE | 2021-08-13 12:46 | Progress Note ---
Assessment and Plan 1. Peripheral vascular disease 2. Essential hypertension 3. End-stage renal disease on hemodialysis 4. Essential hypertension 5. Type 2 diabetes mellitus 6. Hyperlipidemia Plan Cardiac jacome patient is stable management of peripheral ischemic ulcers and peripheral vascular disease as per vascular surgeon note Continue present cardiac management. Subjective Date of service: 08/13/21 Principal diagnosis: PVD with ulceration on second digit left hand Interval history: No cardiac symptoms. Objective Vital Signs Temp Pulse Resp BP BP Pulse Ox 08/13/21 10:00 96 08/13/21 04:29 97.6 F 69 18 109/53 99 08/12/21 22:31 97.8 F 18 121/58 08/12/21 20:53 99 08/12/21 20:38 97.5 F L 65 18 110/56 99 08/12/21 16:14 97 F L 63 16 100/53 98 08/12/21 15:30 64 13 123/51 99 08/12/21 15:00 67 12 127/52 99 08/12/21 14:45 64 13 129/48 96 08/12/21 14:30 63 12 125/50 98 08/12/21 14:14 97.7 F 64 13 114/54 100 - Physical Examination General: Appears Well, No Apparent Distress HEENT: Positive: PERRL, Normocephaly, Mucus Membranes Moist Neck: Positive: neck supple, trachea midline. Negative: JVD/HJR Cardiac: Positive: Regular Rate, S1/S2, PMI, Laterally Displaced. Negative: S3, S4 Lungs: Positive: clear to auscultation, No Wheeze, Rales, Rhonchi Neuro: Positive: Grossly Intact Abdomen: Positive: Soft, Active Bowel Sounds Gait: Normal Gait Extremities: Present: Other. Absent: edema - Imaging and Cardiology EKG: report reviewed (Sinus rhythm monitor ST-T wave changes.)
--- NOTE | 2021-08-13 13:21 | Progress Note ---
Assessment and Plan Assessment and plan: Left foot gangrene Hyperkalemia Volume overload Peripheral vascular disease Hypertension Atrial fibrillation Coronary artery disease Congestive heart failure Chronic heel ulcer Vascular dementia 08/12/2021. Patient is to undergo revascularization today per vascular surgery. Continue hemodialysis per nephrology 08/13/2021. The patient received hemodialysis yesterday for hyperkalemia with re solution. Cardiology was consulted and reports cardiac jacome patient is stable. Vascular surgery reports left lower extremity has been revascularized previously and cannot be revascularized further at this time. The left upper extremity has no bypass or revascularization options. Vascular surgery reports that options include cilostazol, but patient has heart failure which is a contraindication. Other options include Nitropaste administered to the area around the gangrene twice a day which can be discussed with the patient's sister at a later time. Patient should be evaluated for hyperbaric oxygen by outpatient wound care. I discussed the case with Dr. Llamas who recommends ID consultation for recommendations regarding discharge antibiotics History Interval history: No new issues overnight Hospitalist Physical - Constitutional Vitals: Temp Pulse Resp BP Pulse Ox 97.6 F 69 18 109/53 96 08/13/21 04:29 08/13/21 04:29 08/13/21 04:29 08/13/21 04:29 08/13/21 10:00 General appearance: Present: no acute distress, well-nourished - EENT Eyes: Present: PERRL, EOM intact ENT: hearing intact, clear oral mucosa, dentition normal - Neck Neck: Present: supple, normal ROM - Respiratory Respiratory effort: normal Respiratory: bilateral: CTA - Cardiovascular Rhythm: regular Heart Sounds: Present: S1 & S2. Absent: gallop, rub - Extremities Extremities: no ischemia, No edema, Full ROM - Abdominal General gastrointestinal: soft, non-tender, non-distended, normal bowel sounds - Integumentary Integumentary: Present: clear, warm, dry - Neurologic Neurologic: CNII-XII intact, moves all extremities Results - Labs CBC & Chem 7: 08/12/21 10:01 08/12/21 10:01 Labs: Laboratory Last Values WBC 14.5 K/mm3 (4.5-11.0) H 08/12/21 10:01 RBC 3.75 M/mm3 (3.65-5.03) 08/12/21 10:01 Hgb 8.6 gm/dl (10.1-14.3) L 08/12/21 10:01 Hct 28.1 % (30.3-42.9) L 08/12/21 10:01 MCV 75 fl (79-97) L 08/12/21 10:01 MCH 23 pg (28-32) L 08/12/21 10:01 MCHC 31 % (30-34) 08/12/21 10:01 RDW 23.3 % (13.2-15.2) H 08/12/21 10:01 Plt Count 231 K/mm3 (140-440) 08/12/21 10:01 Lymph % (Auto) Insurance Claims Analyst 08/12/21 10:01 [place] % (Auto) Insurance Claims Analyst 08/12/21 10:01 Eos % (Auto) Insurance Claims Analyst 08/12/21 10:01 Baso % (Auto) Insurance Claims Analyst 08/12/21 10:01 Lymph # (Auto) Insurance Claims Analyst 08/12/21 10:01 [place] # (Auto) Insurance Claims Analyst 08/12/21 10:01 Eos # (Auto) Insurance Claims Analyst 08/12/21 10:01 Baso # (Auto) Insurance Claims Analyst 08/12/21 10:01 Add Manual Diff Complete 08/11/21 10:15 Total Counted 100 08/11/21 10:15 Seg Neutrophils % Insurance Claims Analyst 08/12/21 10:01 Seg Neuts % (Manual) 95.0 % (40.0-70.0) H 08/11/21 10:15 Band Neutrophils % 0 % 08/11/21 10:15 Lymphocytes % (Manual) 4.0 % (13.4-35.0) L 08/11/21 10:15 Reactive Lymphs % (Man) 0 % 08/11/21 10:15 Monocytes % (Manual) 1.0 % (0.0-7.3) 08/11/21 10:15 Eosinophils % (Manual) 0 % (0.0-4.3) 08/11/21 10:15 Basophils % (Manual) 0 % (0.0-1.8) 08/11/21 10:15 Metamyelocytes % 0 % 08/11/21 10:15 Myelocytes % 0 % 08/11/21 10:15 Promyelocytes % 0 % 08/11/21 10:15 Blast Cells % 0 % 08/11/21 10:15 Nucleated RBC % 1.0 % (0.0-0.9) H 08/11/21 10:15 Seg Neutrophils # Insurance Claims Analyst 08/12/21 10:01 Seg Neutrophils # Man 11.7 K/mm3 (1.8-7.7) H 08/11/21 10:15 Band Neutrophils # 0.0 K/mm3 08/11/21 10:15 Lymphocytes # (Manual) 0.5 K/mm3 (1.2-5.4) L 08/11/21 10:15 Abs React Lymphs (Man) 0.0 K/mm3 08/11/21 10:15 Monocytes # (Manual) 0.1 K/mm3 (0.0-0.8) 08/11/21 10:15 Eosinophils # (Manual) 0.0 K/mm3 (0.0-0.4) 08/11/21 10:15 Basophils # (Manual) 0.0 K/mm3 (0.0-0.1) 08/11/21 10:15 Metamyelocytes # 0.0 K/mm3 08/11/21 10:15 Myelocytes # 0.0 K/mm3 08/11/21 10:15 Promyelocytes # 0.0 K/mm3 08/11/21 10:15 Blast Cells # 0.0 K/mm3 08/11/21 10:15 WBC Morphology Not Reportable 08/11/21 10:15 Hypersegmented Neuts Not Reportable 08/11/21 10:15 Hyposegmented Neuts 2+ 08/11/21 10:15 Hypogranular Neuts Not Reportable 08/11/21 10:15 Smudge Cells Not Reportable 08/11/21 10:15 Toxic Granulation Not Reportable 08/11/21 10:15 Toxic Vacuolation Not Reportable 08/11/21 10:15 Dohle Bodies Not Reportable 08/11/21 10:15 Pelger-Huet Anomaly Not Reportable 08/11/21 10:15 Cosme Rods Not Reportable 08/11/21 10:15 Platelet Estimate Consistent w auto 08/11/21 10:15 Clumped Platelets Not Reportable 08/11/21 10:15 Plt Clumps, EDTA Not Reportable 08/11/21 10:15 Large Platelets Not Reportable 08/11/21 10:15 Giant Platelets Not Reportable 08/11/21 10:15 Platelet Satelliting Not Reportable 08/11/21 10:15 Plt Morphology Comment Not Reportable 08/11/21 10:15 RBC Morphology Not Reportable 08/11/21 10:15 Dimorphic RBCs Not Reportable 08/11/21 10:15 Polychromasia Rare 08/11/21 10:15 Hypochromasia 1+ 08/11/21 10:15 Poikilocytosis 1+ 08/11/21 10:15 Anisocytosis 2+ 08/11/21 10:15 Microcytosis 1+ 08/11/21 10:15 Macrocytosis Few 08/11/21 10:15 Spherocytes Not Reportable 08/11/21 10:15 Pappenheimer Bodies Not Reportable 08/11/21 10:15 Sickle Cells Not Reportable 08/11/21 10:15 Target Cells Rare 08/11/21 10:15 Tear Drop Cells Not Reportable 08/11/21 10:15 Ovalocytes Not Reportable 08/11/21 10:15 Helmet Cells Not Reportable 08/11/21 10:15 [place] Bodies Not Reportable 08/11/21 10:15 [place] Rings Not Reportable 08/11/21 10:15 Angelina Cells 1+ 08/11/21 10:15 Bite Cells Not Reportable 08/11/21 10:15 Crenated Cell Not Reportable 08/11/21 10:15 Elliptocytes Few 08/11/21 10:15 Acanthocytes (Spur) Rare 08/11/21 10:15 Rouleaux Not Reportable 08/11/21 10:15 Hemoglobin C Crystals Not Reportable 08/11/21 10:15 Schistocytes Not Reportable 08/11/21 10:15 Malaria parasites Not Reportable 08/11/21 10:15 ESR 29 mm/Hr (0-20) 08/07/21 09:45 Jozef Bodies Not Reportable 08/11/21 10:15 Hem Pathologist Commnt No 08/11/21 10:15 Sodium 136 mmol/L (137-145) L 08/12/21 10:01 Potassium 4.6 mmol/L (3.6-5.0) D 08/12/21 10:01 Chloride 96.6 mmol/L (98-107) L 08/12/21 10:01 Carbon Dioxide 24 mmol/L (22-30) 08/12/21 10:01 Anion Gap 20 mmol/L 08/12/21 10:01 BUN 42 mg/dL (7-17) H 08/12/21 10:01 Creatinine 5.2 mg/dL (0.6-1.2) H 08/12/21 10:01 Estimated GFR 10 ml/min 08/12/21 10:01 BUN/Creatinine Ratio 8 % 08/12/21 10:01 Glucose 102 mg/dL (65-100) H 08/12/21 10:01 POC Glucose 94 mg/dL (70-105) 08/11/21 10:10 Calcium 7.5 mg/dL (8.4-10.2) L 08/12/21 10:01 Phosphorus 12.20 mg/dL (2.5-4.5) H 08/07/21 09:45 Magnesium 2.40 mg/dL (1.7-2.3) H 08/07/21 09:45 Total Bilirubin 0.40 mg/dL (0.1-1.2) 08/08/21 04:40 AST 18 units/L (5-40) 08/08/21 04:40 ALT 12 units/L (7-56) 08/08/21 04:40 Alkaline Phosphatase 107 units/L (35-129) 08/08/21 04:40 C-Reactive Protein 4.50 mg/dL (0.00-1.30) H 08/07/21 09:45 NT-Pro-B Natriuret Pep 98845 pg/mL (0-900) H 08/07/21 09:45 Total Protein 7.0 g/dL (6.3-8.2) 08/08/21 04:40 Albumin 3.4 g/dL (3.9-5) L 08/08/21 04:40 Albumin/Globulin Ratio 0.9 % 08/08/21 04:40 Hepatitis A IgM Ab Non-reactive (NonReactive) 08/07/21 09:45 Hep Bs Antigen Non-reactive (Negative) 08/07/21 09:45 Hep B Core IgM Ab Non-reactive (NonReactive) 08/07/21 09:45 Hepatitis C Antibody Non-reactive (NonReactive) 08/07/21 09:45 Pandya/IV: Voiding Method Incontinent Active Medications - Current Medications Current Medications: Generic Name Dose Route Start Last Admin Trade Name Freq PRN Reason Stop Dose Admin Acetaminophen 650 mg 08/07/21 22:17 Acetaminophen 325 Mg Tab PO Q4H PRN Pain MILD(1-3)/Fever >100.5/PALOMINO Alprazolam 0.25 mg 08/07/21 22:22 08/13/21 09:32 Alprazolam 0.25 Mg Tab PO 0.25 mg Q8H PRN Administration Anxiety Carvedilol 25 mg 08/07/21 23:00 08/13/21 09:33 Carvedilol 25 Mg Tab PO Not Given Q12HR SHRUTI Cinacalcet 30 mg 08/08/21 10:00 08/13/21 09:38 Cinacalcet 30 Mg Tab PO 30 mg QDAY SHRUTI Administration Clopidogrel Bisulfate 75 mg 08/08/21 10:00 08/13/21 09:38 Clopidogrel 75 Mg Tab PO 75 mg QDAY SHRUTI Administration Colchicine 0.6 mg 08/08/21 08:00 08/12/21 10:47 Colchicine 0.6 Mg Tab PO 0.6 mg QOD SHRUTI Administration Furosemide 20 mg 08/08/21 10:00 08/13/21 09:39 Furosemide 20 Mg Tab PO 20 mg QDAY SHRUTI Administration Hydralazine HCl 50 mg 08/08/21 08:00 08/13/21 09:02 Hydralazine 25 Mg Tab PO Not Given TID SHRUTI Sodium Chloride 100 mls @ 999 mls/hr 08/07/21 13:29 Nacl 0.9% IV KEV PRN Hypotension Indomethacin 25 mg 08/08/21 07:00 08/13/21 05:49 Indomethacin 25 Mg Cap PO 25 mg Q8HR SHRUTI Administration Isosorbide Mononitrate 30 mg 08/08/21 10:00 08/13/21 09:38 Isosorbide Mononitrate Er 30 Mg Tab PO 30 mg QDAY SHRUTI Administration Metoclopramide HCl 2.5 mg 08/07/21 22:25 Metoclopramide 10 Mg/2 Ml Inj IV Q6H PRN Nausea And Vomiting Morphine Sulfate 2 mg 08/07/21 22:17 08/09/21 16:16 Morphine 2 Mg/1 Ml Inj IV 2 mg Q4H PRN Administration Pain, Moderate (4-6) Nifedipine 30 mg 08/07/21 23:00 08/13/21 09:40 Nifedipine Xl 30 Mg Tab PO Not Given Q12HR SHRUTI Ondansetron HCl 4 mg 08/07/21 22:17 Ondansetron 4 Mg/2 Ml Inj IV Q8H PRN Nausea And Vomiting Oxycodone/Acetaminophen 1 tab 08/07/21 22:17 08/13/21 08:31 Oxycodone /Acetaminophen 5-325mg Tab PO 1 tab Q6H PRN Administration Pain, Moderate (4-6) Pantoprazole Sodium 20 mg 08/10/21 20:00 08/13/21 09:33 Pantoprazole 20 Mg Tab PO 20 mg QDAC SHRUTI Administration Pentoxifylline 400 mg 08/08/21 10:00 08/13/21 09:44 Pentoxifylline Er 400 Mg Tab PO 400 mg DAILY SHRUTI Administration Prednisone 10 mg 08/08/21 10:00 08/13/21 09:38 Prednisone 10 Mg Tab PO 10 mg QDAY SHRUTI Administration Sevelamer Carbonate 800 mg 08/08/21 08:00 08/13/21 11:42 Sevelamer Carbonate 800 Mg Tab PO Not Given TIDWM SHRUTI Sodium Chloride 10 ml 08/07/21 23:00 08/13/21 09:35 Sodium Chloride 0.9% 10 Ml Flush Syringe IV 10 ml BID SHRUTI Administration Sodium Chloride 10 ml 08/07/21 22:17 Sodium Chloride 0.9% 10 Ml Flush Syringe IV PRN PRN LINE FLUSH Sterile Water 1.2 ml 08/09/21 22:45 08/09/21 23:03 Water For Inj Sterile (Pf) 10 Ml IM 1.2 ml Q12HR PRN Administration FOR GEODON DILUTION. Valsartan 80 mg 08/08/21 10:00 08/13/21 09:33 Valsartan 40 Mg Tab PO Not Given QDAY SHRUTI Venlafaxine HCl 37.5 mg 08/07/21 23:00 08/13/21 09:38 Venlafaxine 37.5 Mg Tab PO 37.5 mg BID SHRUTI Administration Ziprasidone 20 mg 08/09/21 19:59 08/09/21 23:03 Ziprasidone Mesylate 20 Mg Vial IM 20 mg Q12HR PRN Administration Agitation Nutrition/Malnutrition Assess - Dietary Evaluation Nutrition/Malnutrition Findings: Nutrition Notes Start: 08/08/21 14:07 Freq: Status: Active Protocol: Document 08/12/21 12:27 ASHLI (Rec: 08/12/21 12:50 ASHLI [id number]) Nutrition Notes Initial or Follow up Reassessment Current Diagnosis CKD (stage V CKD),Diabetes, Hypertension,Hyperlipidemia Other Pertinent Diagnosis ESRD+HD, PVD, Atherosclerosis, Anemia, L-Foot & L-Hand Ulcers. Current Diet NPO (since 08/12 00:01). Labs/Tests 08/12: Na 136, Cl 96.6, BUN 42 , Crea 5.2, Glu 102, Ca 7.5. Pertinent Medications 08/12: Nutritionally unremarkable. Height 5 ft 8 in Weight 65.1 kg [place] Body Weight (kg) 63.63 BMI 21.8 Intake Prior to Admission Good Weight change and time frame Pt denies having loss body weight [employer]. 6.133 Kg body weight gain in 4 days reported. Weight Status Appropriate Subjective/Other Information RD consult fro routine F/U on dietary advancement. Pt currently NPO. Pt is on Nasal Cannula, O2 saturation @ 97%, according to Physical Assessment History notes. Pt has missing teeth, according to Physical Assessment History notes. Percent of energy/protein needs met: Pt currently NPO. Burn Absent Trauma Absent GI Symptoms None Food Allergy No Skin Integrity/Comment L-Foot & L-Hand Ulcers. Current % PO Other Minimum of two criteria No #1 Nutrition Diagnosis Increased nutrient needs ( specify in comment below) Comments: Protein to support wound healing processes. Diagnosis Progress(for reassessment Continues documentation) Is patient on ventilator? No Is Patient Ambulatory and/or Out of Bed No REE-([facility]-confined to bed) 1551.996 Kcal/Kg value to use for calculation 28 Approximate Energy Requirements Using 1823 kcal/Kg Calculation Used for Recommendations Kcal/kg Additional Notes Protein: >1.2 g/Kg ABW; >71 g/ day. Fluids: 1-1.5 L/day, or as per MD. Nutrition Intervention Change Diet Order: When pertinent resume Renal Diet. Add Supplement/Snack (indicate name/kcal When pertinent, start 28.8 g /protein ) pkt Mike;BID. Provides kCal: 190 Provides Protein (gm) 5 Goal #1 Support, through dietary supplementation, wound healing processes during LOS. Goal #2 Adjust the dietary intervention to better serve Pt's needs and clinical conditions during LOS. Follow-Up By: 08/14/21 Additional Comments When pertinent, continue monitoring food tolerance, %PO intake of meals, and BM.
[2021-08-13 16:39] LABS: Mean Corpuscular HGB Conc 30 % (30-34); Mean Corpuscular Volume 74 fl (79-97); Platelet Count 290 K/mm3 (140-440); Red Blood Count 4.59 M/mm3 (3.65-5.03)
[2021-08-13 16:41] LABS: Hematocrit 34.1 % (30.3-42.9); Hemoglobin 10.3 gm/dl (10.1-14.3); Red Cell Distribution Width 23.3 % (13.2-15.2)
[2021-08-13 16:48] LABS: INR 1.21 (0.87-1.13)
--- NOTE | 2021-08-13 21:57 | Progress Note ---
Assessment and Plan - Patient Problems (1) Hyperkalemia Current Visit: Yes Status: Acute Plan to address problem: K normalized with HD. Cont 2g K renal diet (2) ESRD (end stage renal disease) on dialysis Current Visit: No Status: Acute Plan to address problem: cont HD on MWF schedule (3) Atherosclerosis of artery of extremity with rest pain Current Visit: No Status: Acute Plan to address problem: S/p revascularization procedure on 08/12/21. Continue management by vascular surgeon/interventional radiologist. (4) Anemia in end-stage renal disease Current Visit: No Status: Acute Plan to address problem: Given erythropoietin on dialysis and follow-up hemoglobin (5) Hypertensive chronic kidney disease with stage 5 chronic kidney disease or end stage renal disease Current Visit: No Status: Acute Plan to address problem: monitor BP on current meds (6) Type 2 diabetes mellitus with diabetic chronic kidney disease Current Visit: No Status: Acute Plan to address problem: diabetes management as per primary attending Subjective Date of service: 08/13/21 Principal diagnosis: PVD with ulceration on second digit left hand Interval history: Patient seen at bedside , no acute distress, no over night events reported. Patient s/p revascularization procedure. Objective - Vital Signs Vital signs: Vital Signs - 12hr 08/13/21 08/13/21 10:00 11:30 Temperature 97.6 F Pulse Rate 67 Respiratory 18 Rate Blood Pressure 124/65 O2 Sat by Pulse 96 Oximetry O2 Sat by Pulse 98 Oximetry [ Anterior Bilateral Throughout] O2 Sat by Pulse 98 Oximetry [ Bilateral] O2 Sat by Pulse 98 Oximetry [ Posterior Bilateral Throughout] - General Appearance General appearance: well-developed, well-nourished, appears stated age EENT: ATNC, PERRL, mucous membranes moist Neck: no JVD Respiratory: Present: Clear to Ascultation Cardiology: regular, S1S2 Gastrointestinal: normoactive bowel sounds Integumentary: no rash Neurologic: no focal deficit, alert and oriented x3, strength 5/5, CN 3-12 intact Psychiatric: mood/affect appropriate, cooperative - Lab 08/13/21 16:12 08/13/21 16:12 Most recent lab results Calcium 7.5 mg/dL (8.4-10.2) L 08/12/21 10:01 Phosphorus 12.20 mg/dL (2.5-4.5) H 08/07/21 09:45 Magnesium 2.40 mg/dL (1.7-2.3) H 08/07/21 09:45 Medications & Allergies - Medications Allergies/Adverse Reactions: Allergies No Known Allergies Allergy (Verified 06/25/21 13:05) Home Medications: Home Medications Medication Instructions Recorded Confirmed Last Taken Type Cinacalcet [Sensipar] 30 mg PO QDAY 30 Days #30 tablet 02/26/21 08/08/21 07/06/21 Rx Hydralazine HCl 50 mg PO TID 30 Days #90 tab 03/25/21 08/08/21 07/06/21 Rx Valsartan [Diovan] 80 mg PO QDAY 30 Days #30 tab 03/25/21 08/08/21 07/07/21 Rx sevelamer HCL [Sevelamer HCl] 800 mg PO TID 30 Days #90 tab 03/25/21 08/08/21 07/06/21 Rx Acetaminophen [Acetaminophen TAB] 650 mg PO Q4H PRN tablet 04/01/21 08/08/21 07/06/21 Rx carvediloL [Coreg] 25 mg PO Q12HR tablet 04/01/21 08/08/21 07/06/21 Rx Clopidogrel [Plavix] 75 mg PO QDAY #90 tablet 06/24/21 08/08/21 07/06/21 Rx Pentoxifylline 400 mg PO DAILY #90 06/24/21 08/08/21 07/06/21 Rx Furosemide [Lasix TAB] 20 mg PO QDAY #30 tablet 06/25/21 08/08/21 07/06/21 Rx ISOSORBIDE MONOnitrate [Imdur ER] 30 mg PO QDAY #30 tablet 06/25/21 08/08/21 07/06/21 Rx Venlafaxine [Effexor 37.5mg tab] 37.5 mg PO BID #30 tablet 06/25/21 08/08/21 07/06/21 Rx Apixaban [Eliquis] 2.5 mg PO BID #180 07/07/21 08/08/21 Unknown Rx Pantoprazole [Protonix TAB] 40 mg PO BID #180 tablet 07/07/21 08/08/21 Unknown Rx ALPRAZolam [Xanax TAB] 0.25 mg PO Q8H PRN #12 tablet 07/09/21 08/08/21 Unknown Rx NIFEdipine XL [Procardia Xl] 30 mg PO Q12HR #60 tablet 07/09/21 08/08/21 08/07/21 23:00 Rx oxyCODONE /ACETAMINOPHEN [Percocet 1 tab PO Q8H PRN #15 tablet 07/09/21 08/08/21 Unknown Rx 5/325 mg] Active Medications: Generic Name Dose Route Start Last Admin Trade Name [place] PRN Reason Stop Dose Admin Acetaminophen 650 mg 08/07/21 22:17 Acetaminophen 325 Mg Tab PO Q4H PRN Pain MILD(1-3)/Fever >100.5/PALOMINO Alprazolam 0.25 mg 08/07/21 22:22 08/13/21 09:32 Alprazolam 0.25 Mg Tab PO 0.25 mg Q8H PRN Administration Anxiety Apixaban 2.5 mg 08/13/21 22:00 Apixaban 2.5 Mg Tab PO Q12HR SHRUTI Protocol Carvedilol 25 mg 08/07/21 23:00 08/13/21 09:33 Carvedilol 25 Mg Tab PO Not Given Q12HR SHRUTI Cinacalcet 30 mg 08/08/21 10:00 08/13/21 09:38 Cinacalcet 30 Mg Tab PO 30 mg QDAY SHRUTI Administration Clopidogrel Bisulfate 75 mg 08/08/21 10:00 08/13/21 09:38 Clopidogrel 75 Mg Tab PO 75 mg QDAY SHRUTI Administration Colchicine 0.6 mg 08/08/21 08:00 08/12/21 10:47 Colchicine 0.6 Mg Tab PO 0.6 mg QOD SHRUTI Administration Furosemide 20 mg 08/08/21 10:00 08/13/21 09:39 Furosemide 20 Mg Tab PO 20 mg QDAY SHRUTI Administration Hydralazine HCl 50 mg 08/08/21 08:00 08/13/21 15:01 Hydralazine 25 Mg Tab PO Not Given TID SHRUTI Sodium Chloride 100 mls @ 999 mls/hr 08/07/21 13:29 Nacl 0.9% IV KEV PRN Hypotension Indomethacin 25 mg 08/08/21 07:00 08/13/21 15:01 Indomethacin 25 Mg Cap PO Not Given Q8HR SHRUTI Isosorbide Mononitrate 30 mg 08/08/21 10:00 08/13/21 09:38 Isosorbide Mononitrate Er 30 Mg Tab PO 30 mg QDAY SHRUTI Administration Metoclopramide HCl 2.5 mg 08/07/21 22:25 Metoclopramide 10 Mg/2 Ml Inj IV Q6H PRN Nausea And Vomiting Morphine Sulfate 2 mg 08/07/21 22:17 08/09/21 16:16 Morphine 2 Mg/1 Ml Inj IV 2 mg Q4H PRN Administration Pain, Moderate (4-6) Nifedipine 30 mg 08/07/21 23:00 08/13/21 09:40 Nifedipine Xl 30 Mg Tab PO Not Given Q12HR SHRUTI Ondansetron HCl 4 mg 08/07/21 22:17 Ondansetron 4 Mg/2 Ml Inj IV Q8H PRN Nausea And Vomiting Oxycodone/Acetaminophen 1 tab 08/07/21 22:17 08/13/21 08:31 Oxycodone /Acetaminophen 5-325mg Tab PO 1 tab Q6H PRN Administration Pain, Moderate (4-6) Pantoprazole Sodium 20 mg 08/10/21 20:00 08/13/21 09:33 Pantoprazole 20 Mg Tab PO 20 mg QDAC SHRUTI Administration Pentoxifylline 400 mg 08/08/21 10:00 08/13/21 09:44 Pentoxifylline Er 400 Mg Tab PO 400 mg DAILY SHRUTI Administration Prednisone 10 mg 08/08/21 10:00 08/13/21 09:38 Prednisone 10 Mg Tab PO 10 mg QDAY SHRUTI Administration Sevelamer Carbonate 800 mg 08/08/21 08:00 08/13/21 17:11 Sevelamer Carbonate 800 Mg Tab PO Not Given TIDWM SHRUTI Sodium Chloride 10 ml 08/07/21 23:00 08/13/21 09:35 Sodium Chloride 0.9% 10 Ml Flush Syringe IV 10 ml BID SHRUTI Administration Sodium Chloride 10 ml 08/07/21 22:17 Sodium Chloride 0.9% 10 Ml Flush Syringe IV PRN PRN LINE FLUSH Sterile Water 1.2 ml 08/09/21 22:45 08/09/21 23:03 Water For Inj Sterile (Pf) 10 Ml IM 1.2 ml Q12HR PRN Administration FOR GEODON DILUTION. Valsartan 80 mg 08/08/21 10:00 08/13/21 09:33 Valsartan 40 Mg Tab PO Not Given QDAY SHRUTI Venlafaxine HCl 37.5 mg 08/07/21 23:00 08/13/21 09:38 Venlafaxine 37.5 Mg Tab PO 37.5 mg BID SHRUTI Administration Ziprasidone 20 mg 08/09/21 19:59 08/09/21 23:03 Ziprasidone Mesylate 20 Mg Vial IM 20 mg Q12HR PRN Administration Agitation
[2021-08-13] MEDS: APIXABAN 2.5 MG TAB PO SCH (22:10)
[2021-08-14] MEDS: MORPHINE 2 MG/1 ML INJ IV PRN ×2 (04:40→10:15)
[2021-08-14 05:50] LABS: Calcium 7.8 mg/dL (8.4-10.2)
[2021-08-14 05:53] LABS: Hematocrit 30.3 % (30.3-42.9); Hemoglobin 9.3 gm/dl (10.1-14.3); Red Blood Count 4.09 M/mm3 (3.65-5.03)
[2021-08-14 05:54] LABS: Mean Corpuscular HGB Conc 31 % (30-34); Mean Corpuscular Volume 74 fl (79-97); Platelet Count 278 K/mm3 (140-440); Red Cell Distribution Width 23.7 % (13.2-15.2)
[2021-08-14] MEDS: INDOMETHACIN 25 MG CAP PO SCH ×3 (06:15→21:21)
[2021-08-14 06:49] LABS: Basophils % (Manual) 0 % (0.0-1.8); Eosinophils % (Manual) 0 % (0.0-4.3); Hypochromasia 1+; Total Cells Counted 100
[2021-08-14 06:50] LABS: Anisocytosis 2+
[2021-08-14 06:51] LABS: Ovalocytes 1+; Platelet Estimate Consistent w Auto; Tear Drop Cells Few
[2021-08-14] MEDS: SEVELAMER CARBONATE 800 MG TAB PO SCH ×3 (07:23→16:43)
[2021-08-14] MEDS: PANTOPRAZOLE 20 MG TAB PO SCH (07:23)
[2021-08-14] MEDS: hydrALAZINE 25 MG TAB PO SCH ×3 (07:23→20:24)
[2021-08-14] MEDS: ALPRAZolam 0.25 MG TAB PO PRN (07:23)
--- NOTE | 2021-08-14 09:32 | Progress Note ---
Assessment and Plan Assessment and plan: Left foot gangrene Hyperkalemia Volume overload Peripheral vascular disease Hypertension Atrial fibrillation Coronary artery disease Congestive heart failure Chronic heel ulcer Vascular dementia 08/12/2021. Patient is to undergo revascularization today per vascular surgery. Continue hemodialysis per nephrology 08/13/2021. The patient received hemodialysis yesterday for hyperkalemia with re solution. Cardiology was consulted and reports cardiac jacome patient is stable. Vascular surgery reports left lower extremity has been revascularized previously and cannot be revascularized further at this time. The left upper extremity has no bypass or revascularization options. Vascular surgery reports that options include cilostazol, but patient has heart failure which is a contraindication. Other options include Nitropaste administered to the area around the gangrene twice a day which can be discussed with the patient's sister at a later time. Patient should be evaluated for hyperbaric oxygen by outpatient wound care. I discussed the case with Dr. Llamas who recommends ID consultation for recommendations regarding discharge antibiotics 08/14/2021. Await ID consultation for discharge antibiotics. Continue wound care. Continue Eliquis 2.5 mg twice daily and Plavix 75 mg daily. History Interval history: No new issues overnight Hospitalist Physical - Constitutional Vitals: Temp Pulse Resp BP Pulse Ox 99.4 F 75 22 148/70 100 08/14/21 06:00 08/14/21 06:00 08/14/21 06:00 08/14/21 06:00 08/14/21 06:00 General appearance: Present: no acute distress, well-nourished - EENT Eyes: Present: PERRL, EOM intact ENT: hearing intact, clear oral mucosa, dentition normal - Neck Neck: Present: supple, normal ROM - Respiratory Respiratory effort: normal Respiratory: bilateral: CTA - Cardiovascular Rhythm: regular Heart Sounds: Present: S1 & S2. Absent: gallop, rub - Extremities Extremities: no ischemia, No edema, Full ROM - Abdominal General gastrointestinal: soft, non-tender, non-distended, normal bowel sounds - Integumentary Integumentary: Present: clear, warm, dry - Neurologic Neurologic: CNII-XII intact, moves all extremities Results - Labs CBC & Chem 7: 08/14/21 05:00 08/14/21 05:00 Labs: Laboratory Last Values WBC 12.0 K/mm3 (4.5-11.0) H 08/14/21 05:00 RBC 4.09 M/mm3 (3.65-5.03) 08/14/21 05:00 Hgb 9.3 gm/dl (10.1-14.3) L 08/14/21 05:00 Hct 30.3 % (30.3-42.9) 08/14/21 05:00 MCV 74 fl (79-97) L 08/14/21 05:00 MCH 23 pg (28-32) L 08/14/21 05:00 MCHC 31 % (30-34) 08/14/21 05:00 RDW 23.7 % (13.2-15.2) H 08/14/21 05:00 Plt Count 278 K/mm3 (140-440) 08/14/21 05:00 Lymph % (Auto) Manager Pe 08/14/21 05:00 [place] % (Auto) Manager Pe 08/14/21 05:00 Eos % (Auto) Manager Pe 08/14/21 05:00 Baso % (Auto) Manager Pe 08/14/21 05:00 Lymph # (Auto) Manager Pe 08/14/21 05:00 [place] # (Auto) Manager Pe 08/14/21 05:00 Eos # (Auto) Manager Pe 08/14/21 05:00 Baso # (Auto) Manager Pe 08/14/21 05:00 Add Manual Diff Complete 08/14/21 05:00 Total Counted 100 08/14/21 05:00 Seg Neutrophils % Manager Pe 08/14/21 05:00 Seg Neuts % (Manual) 85.0 % (40.0-70.0) H 08/14/21 05:00 Band Neutrophils % 0 % 08/14/21 05:00 Lymphocytes % (Manual) 12.0 % (13.4-35.0) L 08/14/21 05:00 Reactive Lymphs % (Man) 0 % 08/14/21 05:00 Monocytes % (Manual) 3.0 % (0.0-7.3) 08/14/21 05:00 Eosinophils % (Manual) 0 % (0.0-4.3) 08/14/21 05:00 Basophils % (Manual) 0 % (0.0-1.8) 08/14/21 05:00 Metamyelocytes % 0 % 08/14/21 05:00 Myelocytes % 0 % 08/14/21 05:00 Promyelocytes % 0 % 08/14/21 05:00 Blast Cells % 0 % 08/14/21 05:00 Nucleated RBC % Not Reportable 08/14/21 05:00 Seg Neutrophils # Manager Pe 08/14/21 05:00 Seg Neutrophils # Man 10.2 K/mm3 (1.8-7.7) H 08/14/21 05:00 Band Neutrophils # 0.0 K/mm3 08/14/21 05:00 Lymphocytes # (Manual) 1.4 K/mm3 (1.2-5.4) 08/14/21 05:00 Abs React Lymphs (Man) 0.0 K/mm3 08/14/21 05:00 Monocytes # (Manual) 0.4 K/mm3 (0.0-0.8) 08/14/21 05:00 Eosinophils # (Manual) 0.0 K/mm3 (0.0-0.4) 08/14/21 05:00 Basophils # (Manual) 0.0 K/mm3 (0.0-0.1) 08/14/21 05:00 Metamyelocytes # 0.0 K/mm3 08/14/21 05:00 Myelocytes # 0.0 K/mm3 08/14/21 05:00 Promyelocytes # 0.0 K/mm3 08/14/21 05:00 Blast Cells # 0.0 K/mm3 08/14/21 05:00 WBC Morphology Not Reportable 08/14/21 05:00 Hypersegmented Neuts Not Reportable 08/14/21 05:00 Hyposegmented Neuts Not Reportable 08/14/21 05:00 Hypogranular Neuts Not Reportable 08/14/21 05:00 Smudge Cells Not Reportable 08/14/21 05:00 Toxic Granulation Not Reportable 08/14/21 05:00 Toxic Vacuolation Not Reportable 08/14/21 05:00 Dohle Bodies Not Reportable 08/14/21 05:00 Pelger-Huet Anomaly Not Reportable 08/14/21 05:00 Cosme Rods Not Reportable 08/14/21 05:00 Platelet Estimate Consistent w auto 08/14/21 05:00 Clumped Platelets Not Reportable 08/14/21 05:00 Plt Clumps, EDTA Not Reportable 08/14/21 05:00 Large Platelets Not Reportable 08/14/21 05:00 Giant Platelets Not Reportable 08/14/21 05:00 Platelet Satelliting Not Reportable 08/14/21 05:00 Plt Morphology Comment Not Reportable 08/14/21 05:00 RBC Morphology Not Reportable 08/14/21 05:00 Dimorphic RBCs Not Reportable 08/14/21 05:00 Polychromasia Not Reportable 08/14/21 05:00 Hypochromasia 1+ 08/14/21 05:00 Poikilocytosis Not Reportable 08/14/21 05:00 Anisocytosis 2+ 08/14/21 05:00 Microcytosis Not Reportable 08/14/21 05:00 Macrocytosis Not Reportable 08/14/21 05:00 Spherocytes Not Reportable 08/14/21 05:00 Pappenheimer Bodies Not Reportable 08/14/21 05:00 Sickle Cells Not Reportable 08/14/21 05:00 Target Cells Not Reportable 08/14/21 05:00 Tear Drop Cells Few 08/14/21 05:00 Ovalocytes 1+ 08/14/21 05:00 Helmet Cells Not Reportable 08/14/21 05:00 [place] Bodies Not Reportable 08/14/21 05:00 [place] Rings Not Reportable 08/14/21 05:00 [place] Cells Not Reportable 08/14/21 05:00 Bite Cells Not Reportable 08/14/21 05:00 Crenated Cell Not Reportable 08/14/21 05:00 Elliptocytes Not Reportable 08/14/21 05:00 Acanthocytes (Spur) 1+ 08/14/21 05:00 Rouleaux Not Reportable 08/14/21 05:00 Hemoglobin C Crystals Not Reportable 08/14/21 05:00 Schistocytes Not Reportable 08/14/21 05:00 Malaria parasites Not Reportable 08/14/21 05:00 ESR 29 mm/Hr (0-20) 08/07/21 09:45 Jozef Bodies Not Reportable 08/14/21 05:00 Hem Pathologist Commnt No 08/14/21 05:00 PT 16.7 Sec. (12.2-14.9) H 08/13/21 16:12 INR 1.21 (0.87-1.13) H 08/13/21 16:12 APTT 34.0 Sec. (24.2-36.6) 08/13/21 16:12 Sodium 136 mmol/L (137-145) L 08/14/21 05:00 Potassium 4.0 mmol/L (3.6-5.0) 08/14/21 05:00 Chloride 96.8 mmol/L (98-107) L 08/14/21 05:00 Carbon Dioxide 24 mmol/L (22-30) 08/14/21 05:00 Anion Gap 19 mmol/L 08/14/21 05:00 BUN 33 mg/dL (7-17) H 08/14/21 05:00 Creatinine 4.6 mg/dL (0.6-1.2) H 08/14/21 05:00 Estimated GFR 12 ml/min 08/14/21 05:00 BUN/Creatinine Ratio 7 % 08/14/21 05:00 Glucose 94 mg/dL (65-100) 08/14/21 05:00 POC Glucose 94 mg/dL (70-105) 08/11/21 10:10 Calcium 7.8 mg/dL (8.4-10.2) L 08/14/21 05:00 Phosphorus 12.20 mg/dL (2.5-4.5) H 08/07/21 09:45 Magnesium 2.40 mg/dL (1.7-2.3) H 08/07/21 09:45 Total Bilirubin 0.40 mg/dL (0.1-1.2) 08/08/21 04:40 AST 18 units/L (5-40) 08/08/21 04:40 ALT 12 units/L (7-56) 08/08/21 04:40 Alkaline Phosphatase 107 units/L (35-129) 08/08/21 04:40 C-Reactive Protein 4.50 mg/dL (0.00-1.30) H 08/07/21 09:45 NT-Pro-B Natriuret Pep 20906 pg/mL (0-900) H 08/07/21 09:45 Total Protein 7.0 g/dL (6.3-8.2) 08/08/21 04:40 Albumin 3.4 g/dL (3.9-5) L 08/08/21 04:40 Albumin/Globulin Ratio 0.9 % 08/08/21 04:40 Hepatitis A IgM Ab Non-reactive (NonReactive) 08/07/21 09:45 Hep Bs Antigen Non-reactive (Negative) 08/07/21 09:45 Hep B Core IgM Ab Non-reactive (NonReactive) 08/07/21 09:45 Hepatitis C Antibody Non-reactive (NonReactive) 08/07/21 09:45 Pandya/IV: Voiding Method Incontinent Active Medications - Current Medications Current Medications: Generic Name Dose Route Start Last Admin Trade Name Freq PRN Reason Stop Dose Admin Acetaminophen 650 mg 08/07/21 22:17 Acetaminophen 325 Mg Tab PO Q4H PRN Pain MILD(1-3)/Fever >100.5/PALOMINO Alprazolam 0.25 mg 08/07/21 22:22 08/14/21 07:23 Alprazolam 0.25 Mg Tab PO 0.25 mg Q8H PRN Administration Anxiety Apixaban 2.5 mg 08/13/21 22:00 08/13/21 22:10 Apixaban 2.5 Mg Tab PO 2.5 mg Q12HR SHRUTI Administration Protocol Carvedilol 25 mg 08/07/21 23:00 08/13/21 22:09 Carvedilol 25 Mg Tab PO 25 mg Q12HR SHRUTI Administration Cinacalcet 30 mg 08/08/21 10:00 08/13/21 09:38 Cinacalcet 30 Mg Tab PO 30 mg QDAY SHRUTI Administration Clopidogrel Bisulfate 75 mg 08/08/21 10:00 08/13/21 09:38 Clopidogrel 75 Mg Tab PO 75 mg QDAY SHRUTI Administration Colchicine 0.6 mg 08/08/21 08:00 08/12/21 10:47 Colchicine 0.6 Mg Tab PO 0.6 mg QOD SHRUTI Administration Furosemide 20 mg 08/08/21 10:00 08/13/21 09:39 Furosemide 20 Mg Tab PO 20 mg QDAY SHRUTI Administration Hydralazine HCl 50 mg 08/08/21 08:00 08/14/21 07:23 Hydralazine 25 Mg Tab PO 50 mg TID SHRUTI Administration Sodium Chloride 100 mls @ 999 mls/hr 08/07/21 13:29 Nacl 0.9% IV KEV PRN Hypotension Indomethacin 25 mg 08/08/21 07:00 08/14/21 06:15 Indomethacin 25 Mg Cap PO 25 mg Q8HR SHRUTI Administration Isosorbide Mononitrate 30 mg 08/08/21 10:00 08/13/21 09:38 Isosorbide Mononitrate Er 30 Mg Tab PO 30 mg QDAY SHRUTI Administration Metoclopramide HCl 2.5 mg 08/07/21 22:25 Metoclopramide 10 Mg/2 Ml Inj IV Q6H PRN Nausea And Vomiting Morphine Sulfate 2 mg 08/07/21 22:17 08/14/21 04:40 Morphine 2 Mg/1 Ml Inj IV 2 mg Q4H PRN Administration Pain, Moderate (4-6) Nifedipine 30 mg 08/07/21 23:00 08/13/21 22:09 Nifedipine Xl 30 Mg Tab PO 30 mg Q12HR SHRUTI Administration Ondansetron HCl 4 mg 08/07/21 22:17 Ondansetron 4 Mg/2 Ml Inj IV Q8H PRN Nausea And Vomiting Oxycodone/Acetaminophen 1 tab 08/07/21 22:17 08/13/21 08:31 Oxycodone /Acetaminophen 5-325mg Tab PO 1 tab Q6H PRN Administration Pain, Moderate (4-6) Pantoprazole Sodium 20 mg 08/10/21 20:00 08/14/21 07:23 Pantoprazole 20 Mg Tab PO 20 mg QDAC SHRUTI Administration Pentoxifylline 400 mg 08/08/21 10:00 08/13/21 09:44 Pentoxifylline Er 400 Mg Tab PO 400 mg DAILY SHRUTI Administration Prednisone 10 mg 08/08/21 10:00 08/13/21 09:38 Prednisone 10 Mg Tab PO 10 mg QDAY SHRUTI Administration Sevelamer Carbonate 800 mg 08/08/21 08:00 08/14/21 07:23 Sevelamer Carbonate 800 Mg Tab PO 800 mg TIDWM SHRUTI Administration Sodium Chloride 10 ml 08/07/21 23:00 08/13/21 22:11 Sodium Chloride 0.9% 10 Ml Flush Syringe IV 10 ml BID SHRUTI Administration Sodium Chloride 10 ml 08/07/21 22:17 Sodium Chloride 0.9% 10 Ml Flush Syringe IV PRN PRN LINE FLUSH Sterile Water 1.2 ml 08/09/21 22:45 08/09/21 23:03 Water For Inj Sterile (Pf) 10 Ml IM 1.2 ml Q12HR PRN Administration FOR GEODON DILUTION. Valsartan 80 mg 08/08/21 10:00 08/13/21 09:33 Valsartan 40 Mg Tab PO Not Given QDAY SHRUTI Venlafaxine HCl 37.5 mg 08/07/21 23:00 08/13/21 22:09 Venlafaxine 37.5 Mg Tab PO 37.5 mg BID SHRUTI Administration Ziprasidone 20 mg 08/09/21 19:59 08/09/21 23:03 Ziprasidone Mesylate 20 Mg Vial IM 20 mg Q12HR PRN Administration Agitation Nutrition/Malnutrition Assess - Dietary Evaluation Nutrition/Malnutrition Findings: Nutrition Notes Start: 08/08/21 14:07 Freq: Status: Active Protocol: Document 08/12/21 12:27 ASHLI (Rec: 08/12/21 12:50 ASHLI [id number]) Nutrition Notes Initial or Follow up Reassessment Current Diagnosis CKD (stage V CKD),Diabetes, Hypertension,Hyperlipidemia Other Pertinent Diagnosis ESRD+HD, PVD, Atherosclerosis, Anemia, L-Foot & L-Hand Ulcers. Current Diet NPO (since 08/12 00:01). Labs/Tests 08/12: Na 136, Cl 96.6, BUN 42 , Crea 5.2, Glu 102, Ca 7.5. Pertinent Medications 08/12: Nutritionally unremarkable. Height 5 ft 8 in Weight 65.1 kg [place] Body Weight (kg) 63.63 BMI 21.8 Intake Prior to Admission Good Weight change and time frame Pt denies having loss body weight [employer]. 6.133 Kg body weight gain in 4 days reported. Weight Status Appropriate Subjective/Other Information RD consult fro routine F/U on dietary advancement. Pt currently NPO. Pt is on Nasal Cannula, O2 saturation @ 97%, according to Physical Assessment History notes. Pt has missing teeth, according to Physical Assessment History notes. Percent of energy/protein needs met: Pt currently NPO. Burn Absent Trauma Absent GI Symptoms None Food Allergy No Skin Integrity/Comment L-Foot & L-Hand Ulcers. Current % PO Other Minimum of two criteria No #1 Nutrition Diagnosis Increased nutrient needs ( specify in comment below) Comments: Protein to support wound healing processes. Diagnosis Progress(for reassessment Continues documentation) Is patient on ventilator? No Is Patient Ambulatory and/or Out of Bed No REE-([place]-confined to bed) 1551.996 Kcal/Kg value to use for calculation 28 Approximate Energy Requirements Using 1823 kcal/Kg Calculation Used for Recommendations Kcal/kg Additional Notes Protein: >1.2 g/Kg ABW; >71 g/ day. Fluids: 1-1.5 L/day, or as per MD. Nutrition Intervention Change Diet Order: When pertinent resume Renal Diet. Add Supplement/Snack (indicate name/kcal When pertinent, start 28.8 g /protein ) pkt Mike;BID. Provides kCal: 190 Provides Protein (gm) 5 Goal #1 Support, through dietary supplementation, wound healing processes during LOS. Goal #2 Adjust the dietary intervention to better serve Pt's needs and clinical conditions during LOS. Follow-Up By: 08/14/21 Additional Comments When pertinent, continue monitoring food tolerance, %PO intake of meals, and BM.
[2021-08-14] MEDS: carvediloL 25 MG TAB PO SCH ×2 (10:20→21:21)
[2021-08-14] MEDS: VALSARTAN 40 MG TAB PO SCH (10:20)
[2021-08-14] MEDS: FUROSEMIDE 20 MG TAB PO SCH (10:24)
[2021-08-14] MEDS: CINACALCET 30 MG TAB PO SCH (10:24)
[2021-08-14] MEDS: CLOPIDOGREL 75 MG TAB PO SCH (10:24)
[2021-08-14] MEDS: PENTOXIFYLLINE ER 400 MG TAB PO SCH (10:24)
[2021-08-14] MEDS: NIFEdipine XL 30 MG TAB PO SCH ×2 (10:24→21:22)
[2021-08-14] MEDS: COLCHICINE 0.6 MG TAB PO SCH (10:24)
[2021-08-14] MEDS: predniSONE 10 MG TAB PO SCH (10:24)
[2021-08-14] MEDS: APIXABAN 2.5 MG TAB PO SCH ×2 (10:24→21:21)
[2021-08-14] MEDS: oxyCODONE /ACETAMINOPHEN 5-325MG TAB PO PRN (12:53)
--- NOTE | 2021-08-14 14:00 | Consultation ---
History of Present Illness - Reason for Consult Consult date: 08/14/21 - History of Present Illness 56-year-old female past medical history hypertension, PAD, ESRD on HD with a tunneled cath presented to hospital complaining of left hand pain and numbness dialysis sessions. She was found to have gangrene of the left foot. She was taken for revascularization on 08/12/2021, however as has been previously revascularized no further options were available. She is known to have multiple wounds on left foot, not appear to be acutely infected. Afebrile, white count 12 no current cultures. Not presently on antibiotics. Currently on steroids. Imaging personally reviewed: Chest x-ray: Mild developing pleural-parenchymal disease Past History Past Medical History: dialysis, ESRD, PVD Past Surgical History: Other (permcath) Social history: denies: smoking, alcohol abuse, prescription drug abuse, IV drug use Family history: hypertension Medications and Allergies Allergies Allergy/AdvReac Type Severity Reaction Status Date / Time No Known Allergies Allergy Verified 06/25/21 13:05 Home Medications Medication Instructions Recorded Confirmed Last Taken Type Cinacalcet [Sensipar] 30 mg PO QDAY 30 Days #30 tablet 02/26/21 08/08/21 07/06/21 Rx Hydralazine HCl 50 mg PO TID 30 Days #90 tab 03/25/21 08/08/21 07/06/21 Rx Valsartan [Diovan] 80 mg PO QDAY 30 Days #30 tab 03/25/21 08/08/21 07/07/21 Rx sevelamer HCL [Sevelamer HCl] 800 mg PO TID 30 Days #90 tab 03/25/21 08/08/21 07/06/21 Rx Acetaminophen [Acetaminophen TAB] 650 mg PO Q4H PRN tablet 04/01/21 08/08/21 07/06/21 Rx carvediloL [Coreg] 25 mg PO Q12HR tablet 04/01/21 08/08/21 07/06/21 Rx Clopidogrel [Plavix] 75 mg PO QDAY #90 tablet 06/24/21 08/08/21 07/06/21 Rx Pentoxifylline 400 mg PO DAILY #90 06/24/21 08/08/21 07/06/21 Rx Furosemide [Lasix TAB] 20 mg PO QDAY #30 tablet 04/09/1008/08/21 07/06/21 Rx ISOSORBIDE MONOnitrate [Imdur ER] 30 mg PO QDAY #30 tablet 06/25/21 08/08/21 07/06/21 Rx Venlafaxine [Effexor 37.5mg tab] 37.5 mg PO BID #30 tablet 06/25/21 08/08/21 07/06/21 Rx Apixaban [Eliquis] 2.5 mg PO BID #180 07/07/21 08/08/21 Unknown Rx Pantoprazole [Protonix TAB] 40 mg PO BID #180 tablet 07/07/21 08/08/21 Unknown Rx ALPRAZolam [Xanax TAB] 0.25 mg PO Q8H PRN #12 tablet 07/09/21 08/08/21 Unknown Rx NIFEdipine XL [Procardia Xl] 30 mg PO Q12HR #60 tablet 07/09/21 08/08/21 08/07/21 23:00 Rx oxyCODONE /ACETAMINOPHEN [Percocet 1 tab PO Q8H PRN #15 tablet 07/09/21 08/08/21 Unknown Rx 5/325 mg] Active Meds: Active Medications Acetaminophen (Acetaminophen 325 Mg Tab) 650 mg PO Q4H PRN PRN Reason: Pain MILD(1-3)/Fever >100.5/PALOMINO Alprazolam (Alprazolam 0.25 Mg Tab) 0.25 mg PO Q8H PRN PRN Reason: Anxiety Last Admin: 08/14/21 07:23 Dose: 0.25 mg Apixaban (Apixaban 2.5 Mg Tab) 2.5 mg PO Q12HR [facility]; Protocol Last Admin: 08/14/21 10:24 Dose: 2.5 mg Carvedilol (Carvedilol 25 Mg Tab) 25 mg PO Q12HR [facility] Last Admin: 08/14/21 10:20 Dose: Not Given Cinacalcet (Cinacalcet 30 Mg Tab) 30 mg PO QDAY [facility] Last Admin: 08/14/21 10:24 Dose: 30 mg Clopidogrel Bisulfate (Clopidogrel 75 Mg Tab) 75 mg PO QDAY [facility] Last Admin: 08/14/21 10:24 Dose: 75 mg Colchicine (Colchicine 0.6 Mg Tab) 0.6 mg PO QOD [facility] Last Admin: 08/14/21 10:24 Dose: 0.6 mg Furosemide (Furosemide 20 Mg Tab) 20 mg PO QDAY [facility] Last Admin: 08/14/21 10:24 Dose: 20 mg Hydralazine HCl (Hydralazine 25 Mg Tab) 50 mg PO TID [facility] Last Admin: 08/14/21 07:23 Dose: 50 mg Sodium Chloride (Nacl 0.9%) 100 mls @ 999 mls/hr IV KEV PRN PRN Reason: Hypotension Indomethacin (Indomethacin 25 Mg Cap) 25 mg PO Q8HR [facility] Last Admin: 08/14/21 06:15 Dose: 25 mg Isosorbide Mononitrate (Isosorbide Mononitrate Er 30 Mg Tab) 30 mg PO QDAY [facility] Last Admin: 08/14/21 10:24 Dose: 30 mg Metoclopramide HCl (Metoclopramide 10 Mg/2 Ml Inj) 2.5 mg IV Q6H PRN PRN Reason: Nausea And Vomiting Morphine Sulfate (Morphine 2 Mg/1 Ml Inj) 2 mg IV Q4H PRN PRN Reason: Pain, Moderate (4-6) Last Admin: 08/14/21 10:15 Dose: 2 mg Nifedipine (Nifedipine Xl 30 Mg Tab) 30 mg PO Q12HR [facility] Last Admin: 08/14/21 10:24 Dose: 30 mg Ondansetron HCl (Ondansetron 4 Mg/2 Ml Inj) 4 mg IV Q8H PRN PRN Reason: Nausea And Vomiting Oxycodone/Acetaminophen (Oxycodone /Acetaminophen 5-325mg Tab) 1 tab PO Q6H PRN PRN Reason: Pain, Moderate (4-6) Last Admin: 08/14/21 12:53 Dose: 1 tab Pantoprazole Sodium (Pantoprazole 20 Mg Tab) 20 mg PO QDAC [facility] Last Admin: 08/14/21 07:23 Dose: 20 mg Pentoxifylline (Pentoxifylline Er 400 Mg Tab) 400 mg PO DAILY [facility] Last Admin: 08/14/21 10:24 Dose: 400 mg Prednisone (Prednisone 10 Mg Tab) 10 mg PO QDAY [facility] Last Admin: 08/14/21 10:24 Dose: 10 mg Sevelamer Carbonate (Sevelamer Carbonate 800 Mg Tab) 800 mg PO TIDWM [facility] Last Admin: 08/14/21 12:53 Dose: 800 mg Sodium Chloride (Sodium Chloride 0.9% 10 Ml Flush Syringe) 10 ml IV BID [facility] Last Admin: 08/14/21 10:25 Dose: 10 ml Sodium Chloride (Sodium Chloride 0.9% 10 Ml Flush Syringe) 10 ml IV PRN PRN PRN Reason: LINE FLUSH Sterile Water (Water For Inj Sterile (Pf) 10 Ml) 1.2 ml IM Q12HR PRN PRN Reason: FOR GEODON DILUTION. Last Admin: 08/09/21 23:03 Dose: 1.2 ml Valsartan (Valsartan 40 Mg Tab) 80 mg PO QDAY [facility] Last Admin: 08/14/21 10:20 Dose: Not Given Venlafaxine HCl (Venlafaxine 37.5 Mg Tab) 37.5 mg PO BID [facility] Last Admin: 08/13/21 22:09 Dose: 37.5 mg Ziprasidone (Ziprasidone Mesylate 20 Mg Vial) 20 mg IM Q12HR PRN PRN Reason: Agitation Last Admin: 08/09/21 23:03 Dose: 20 mg Review of Systems ROS unobtainable: due to mental status Physical Examination - Constitutional Vitals: Vital Signs Temp Pulse Resp BP Pulse Ox 97.8 F 99 H 16 127/61 96 08/14/21 11:15 08/14/21 11:15 08/14/21 11:15 08/14/21 11:15 08/14/21 11:15 Temperature -Last 24 Hours Temperature 97.8 F Temperature 99.4 F Temperature 98.0 F Results - Labs CBC & Chem 7: 08/14/21 05:00 08/14/21 05:00 Labs: Abnormal lab results 08/13/21 08/13/21 08/13/21 Range/Units 16:12 16:12 16:12 WBC 14.6 H (4.5-11.0) K/mm3 Hgb (10.1-14.3) gm/dl MCV 74 L (79-97) fl MCH 22 L (28-32) pg RDW 23.3 H (13.2-15.2) % Seg Neuts % (Manual) (40.0-70.0) % Lymphocytes % (Manual) (13.4-35.0) % Seg Neutrophils # Man (1.8-7.7) K/mm3 PT 16.7 H (12.2-14.9) Sec. INR 1.21 H (0.87-1.13) Sodium (137-145) mmol/L Chloride (98-107) mmol/L BUN (7-17) mg/dL Creatinine 3.4 H (0.6-1.2) mg/dL Calcium (8.4-10.2) mg/dL 08/14/21 08/14/21 Range/Units 05:00 05:00 WBC 12.0 H (4.5-11.0) K/mm3 Hgb 9.3 L (10.1-14.3) gm/dl MCV 74 L (79-97) fl MCH 23 L (28-32) pg RDW 23.7 H (13.2-15.2) % Seg Neuts % (Manual) 85.0 H (40.0-70.0) % Lymphocytes % (Manual) 12.0 L (13.4-35.0) % Seg Neutrophils # Man 10.2 H (1.8-7.7) K/mm3 PT (12.2-14.9) Sec. INR (0.87-1.13) Sodium 136 L (137-145) mmol/L Chloride 96.8 L (98-107) mmol/L BUN 33 H (7-17) mg/dL Creatinine 4.6 H (0.6-1.2) mg/dL Calcium 7.8 L (8.4-10.2) mg/dL Assessment and Plan Cultures: None A/P: 56-year-old female past medical history hypertension, PAD, ESRD on HD #Left foot gangrene: No evidence of infection at the present time, more likely to be due to dry gangrene with PAD ulcers. Given general level of debility would not recommend longterm treatment with antibiotics regardless of any underlying infections. #Chronic wounds: needs wound care #Leukocytosis: currently on steroids which may be causing the elevation. #ESRD on HD: renally dose medications. Recs: -Given possible developing pneumonia ok to DC on Levaquin 250mg q24h for 7 days. Thank you for the consult, we will continue to follow. MD David [facility] O: [phone] F: [phone]
--- NOTE | 2021-08-14 14:04 | Progress Note ---
Assessment and Plan - Patient Problems (1) Hyperkalemia Current Visit: Yes Status: Acute Plan to address problem: K normalized with HD. 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 as per vascular surgery, the left upper extremity has no bypass or revascularization options. Continue management by vascular surgeon/interventional radiologist. (4) Anemia in end-stage renal disease Current Visit: No Status: Acute Plan to address problem: Given erythropoietin on dialysis and follow-up hemoglobin (5) Hypertensive chronic kidney disease with stage 5 chronic kidney disease or end stage renal disease Current Visit: No Status: Acute Plan to address problem: monitor BP on current meds (6) Type 2 diabetes mellitus with diabetic chronic kidney disease Current Visit: No Status: Acute Plan to address problem: diabetes management as per primary attending Subjective Date of service: 08/14/21 Principal diagnosis: PVD with ulceration on second digit left hand Interval history: Patient seen at bedside , no acute distress, no over night events reported. Objective - Vital Signs Vital signs: Vital Signs - 12hr 08/14/21 08/14/21 08/14/21 05:41 06:00 10:00 Temperature 99.4 F Pulse Rate 65 75 Respiratory 22 22 Rate Blood Pressure Blood Pressure 148/70 [Left] O2 Sat by Pulse 100 100 99 Oximetry 08/14/21 11:15 Temperature 97.8 F Pulse Rate 99 H Respiratory 16 Rate Blood Pressure 127/61 Blood Pressure [Left] O2 Sat by Pulse 96 Oximetry - General Appearance General appearance: well-developed, well-nourished, appears stated age EENT: ATNC, PERRL, mucous membranes moist Neck: no JVD Respiratory: Present: Clear to Ascultation Cardiology: regular, S1S2 Gastrointestinal: normoactive bowel sounds Integumentary: no rash Neurologic: no focal deficit, strength 5/5, CN 3-12 intact Psychiatric: mood/affect appropriate, cooperative - Lab 08/14/21 05:00 08/14/21 05:00 Most recent lab results Calcium 7.8 mg/dL (8.4-10.2) L 08/14/21 05:00 Phosphorus 12.20 mg/dL (2.5-4.5) H 08/07/21 09:45 Magnesium 2.40 mg/dL (1.7-2.3) H 08/07/21 09:45 Medications & Allergies - Medications Allergies/Adverse Reactions: Allergies No Known Allergies Allergy (Verified 06/25/21 13:05) Home Medications: Home Medications Medication Instructions Recorded Confirmed Last Taken Type Cinacalcet [Sensipar] 30 mg PO QDAY 30 Days #30 tablet 02/26/21 08/08/21 07/06/21 Rx Hydralazine HCl 50 mg PO TID 30 Days #90 tab 03/25/21 08/08/21 07/06/21 Rx Valsartan [Diovan] 80 mg PO QDAY 30 Days #30 tab 03/25/21 08/08/21 07/07/21 Rx sevelamer HCL [Sevelamer HCl] 800 mg PO TID 30 Days #90 tab 03/25/21 08/08/21 07/06/21 Rx Acetaminophen [Acetaminophen TAB] 650 mg PO Q4H PRN tablet 04/01/21 08/08/21 07/06/21 Rx carvediloL [Coreg] 25 mg PO Q12HR tablet 04/01/21 08/08/21 07/06/21 Rx Clopidogrel [Plavix] 75 mg PO QDAY #90 tablet 06/24/21 08/08/21 07/06/21 Rx Pentoxifylline 400 mg PO DAILY #90 06/24/21 08/08/21 07/06/21 Rx Furosemide [Lasix TAB] 20 mg PO QDAY #30 tablet 06/25/21 08/08/21 07/06/21 Rx ISOSORBIDE MONOnitrate [Imdur ER] 30 mg PO QDAY #30 tablet 06/25/21 08/08/21 07/06/21 Rx Venlafaxine [Effexor 37.5mg tab] 37.5 mg PO BID #30 tablet 06/25/21 08/08/21 07/06/21 Rx Apixaban [Eliquis] 2.5 mg PO BID #180 07/07/21 08/08/21 Unknown Rx Pantoprazole [Protonix TAB] 40 mg PO BID #180 tablet 07/07/21 08/08/21 Unknown Rx ALPRAZolam [Xanax TAB] 0.25 mg PO Q8H PRN #12 tablet 07/09/21 08/08/21 Unknown Rx NIFEdipine XL [Procardia Xl] 30 mg PO Q12HR #60 tablet 07/09/21 08/08/21 08/07/21 23:00 Rx oxyCODONE /ACETAMINOPHEN [Percocet 1 tab PO Q8H PRN #15 tablet 07/09/21 08/08/21 Unknown Rx 5/325 mg] Active Medications: Generic Name Dose Route Start Last Admin Trade Name Freq PRN Reason Stop Dose Admin Acetaminophen 650 mg 08/07/21 22:17 Acetaminophen 325 Mg Tab PO Q4H PRN Pain MILD(1-3)/Fever >100.5/PALOMINO Alprazolam 0.25 mg 08/07/21 22:22 08/14/21 07:23 Alprazolam 0.25 Mg Tab PO 0.25 mg Q8H PRN Administration Anxiety Apixaban 2.5 mg 08/13/21 22:00 08/14/21 10:24 Apixaban 2.5 Mg Tab PO 2.5 mg Q12HR SHRUTI Administration Protocol Carvedilol 25 mg 08/07/21 23:00 08/14/21 10:20 Carvedilol 25 Mg Tab PO Not Given Q12HR SHRUTI Cinacalcet 30 mg 08/08/21 10:00 08/14/21 10:24 Cinacalcet 30 Mg Tab PO 30 mg QDAY SHRUTI Administration Clopidogrel Bisulfate 75 mg 08/08/21 10:00 08/14/21 10:24 Clopidogrel 75 Mg Tab PO 75 mg QDAY SHRUTI Administration Colchicine 0.6 mg 08/08/21 08:00 08/14/21 10:24 Colchicine 0.6 Mg Tab PO 0.6 mg QOD SHRUTI Administration Furosemide 20 mg 08/08/21 10:00 08/14/21 10:24 Furosemide 20 Mg Tab PO 20 mg QDAY SHRUTI Administration Hydralazine HCl 50 mg 08/08/21 08:00 08/14/21 07:23 Hydralazine 25 Mg Tab PO 50 mg TID SHRUTI Administration Sodium Chloride 100 mls @ 999 mls/hr 08/07/21 13:29 Nacl 0.9% IV KEV PRN Hypotension Indomethacin 25 mg 08/08/21 07:00 08/14/21 06:15 Indomethacin 25 Mg Cap PO 25 mg Q8HR SHRUTI Administration Isosorbide Mononitrate 30 mg 08/08/21 10:00 08/14/21 10:24 Isosorbide Mononitrate Er 30 Mg Tab PO 30 mg QDAY SHRUTI Administration Metoclopramide HCl 2.5 mg 08/07/21 22:25 Metoclopramide 10 Mg/2 Ml Inj IV Q6H PRN Nausea And Vomiting Morphine Sulfate 2 mg 08/07/21 22:17 08/14/21 10:15 Morphine 2 Mg/1 Ml Inj IV 2 mg Q4H PRN Administration Pain, Moderate (4-6) Nifedipine 30 mg 08/07/21 23:00 08/14/21 10:24 Nifedipine Xl 30 Mg Tab PO 30 mg Q12HR SHRUTI Administration Ondansetron HCl 4 mg 08/07/21 22:17 Ondansetron 4 Mg/2 Ml Inj IV Q8H PRN Nausea And Vomiting Oxycodone/Acetaminophen 1 tab 08/07/21 22:17 08/14/21 12:53 Oxycodone /Acetaminophen 5-325mg Tab PO 1 tab Q6H PRN Administration Pain, Moderate (4-6) Pantoprazole Sodium 20 mg 08/10/21 20:00 08/14/21 07:23 Pantoprazole 20 Mg Tab PO 20 mg QDAC SHRUTI Administration Pentoxifylline 400 mg 08/08/21 10:00 08/14/21 10:24 Pentoxifylline Er 400 Mg Tab PO 400 mg DAILY SHRUTI Administration Prednisone 10 mg 08/08/21 10:00 08/14/21 10:24 Prednisone 10 Mg Tab PO 10 mg QDAY SHRUTI Administration Sevelamer Carbonate 800 mg 08/08/21 08:00 08/14/21 12:53 Sevelamer Carbonate 800 Mg Tab PO 800 mg TIDWM SHRUTI Administration Sodium Chloride 10 ml 08/07/21 23:00 08/14/21 10:25 Sodium Chloride 0.9% 10 Ml Flush Syringe IV 10 ml BID SHRUTI Administration Sodium Chloride 10 ml 08/07/21 22:17 Sodium Chloride 0.9% 10 Ml Flush Syringe IV PRN PRN LINE FLUSH Sterile Water 1.2 ml 08/09/21 22:45 08/09/21 23:03 Water For Inj Sterile (Pf) 10 Ml IM 1.2 ml Q12HR PRN Administration FOR GEODON DILUTION. Valsartan 80 mg 08/08/21 10:00 08/14/21 10:20 Valsartan 40 Mg Tab PO Not Given QDAY SHRUTI Venlafaxine HCl 37.5 mg 08/07/21 23:00 08/13/21 22:09 Venlafaxine 37.5 Mg Tab PO 37.5 mg BID SHRUTI Administration Ziprasidone 20 mg 08/09/21 19:59 08/09/21 23:03 Ziprasidone Mesylate 20 Mg Vial IM 20 mg Q12HR PRN Administration Agitation
[2021-08-14] MEDS: VENLAFAXINE 37.5 MG TAB PO SCH ×2 (14:21→21:21)
--- NOTE | 2021-08-14 17:21 | Progress Note ---
Assessment and Plan - Patient Problems (1) Cardiomyopathy Current Visit: Yes Status: Acute (2) Hypertension Current Visit: No Status: Chronic Qualifiers: Hypertension type: primary hypertension Qualified Code(s): I10 - Essential (primary) hypertension (3) Insulin dependent diabetes mellitus Current Visit: No Status: Chronic Subjective Date of service: 08/14/21 Principal diagnosis: PVD with ulceration on second digit left hand Interval history: no CV c/o Objective Vital Signs Temp Pulse Resp BP BP Pulse Ox 08/14/21 11:15 97.8 F 99 H 16 127/61 96 08/14/21 10:00 99 08/14/21 06:00 99.4 F 75 22 148/70 100 08/14/21 05:41 65 22 100 08/13/21 22:09 75 129/57 08/13/21 22:00 96 08/13/21 21:56 75 129/57 08/13/21 21:01 75 20 129/57 96 - Physical Examination General: Appears Well, No Apparent Distress HEENT: Positive: PERRL, Normocephaly, Mucus Membranes Moist Neck: Positive: neck supple, trachea midline. Negative: JVD/HJR Cardiac: Positive: Reg Rate and Rhythm Lungs: Positive: clear to auscultation Neuro: Positive: Grossly Intact Abdomen: Positive: Soft, Active Bowel Sounds Gait: Normal Gait Extremities: Present: Other (TRACE EDEMA,,,DRESSINGS,,DIM. PULSES). Absent: edema - Labs and Meds CBC 08/14/21 Range/Units 05:00 WBC 12.0 H (4.5-11.0) K/mm3 RBC 4.09 (3.65-5.03) M/mm3 Hgb 9.3 L (10.1-14.3) gm/dl Hct 30.3 (30.3-42.9) % Plt Count 278 (140-440) K/mm3 Lymph # (Auto) Shovel Mechanic Mcmullen # (Auto) Shovel Mechanic Eos # (Auto) Shovel Mechanic Baso # (Auto) Shovel Mechanic Comprehensive Metabolic Panel 08/14/21 Range/Units 05:00 Sodium 136 L (137-145) mmol/L Potassium 4.0 (3.6-5.0) mmol/L Chloride 96.8 L (98-107) mmol/L Carbon Dioxide 24 (22-30) mmol/L BUN 33 H (7-17) mg/dL Creatinine 4.6 H (0.6-1.2) mg/dL Glucose 94 (65-100) mg/dL Calcium 7.8 L (8.4-10.2) mg/dL - Imaging and Cardiology EKG: report reviewed (Sinus rhythm monitor ST-T wave changes.)
[2021-08-15] MEDS: oxyCODONE /ACETAMINOPHEN 5-325MG TAB PO PRN ×2 (00:58→09:18)
[2021-08-15] MEDS: MORPHINE 2 MG/1 ML INJ IV PRN (03:41)
[2021-08-15] MEDS: ALPRAZolam 0.25 MG TAB PO PRN (05:00)
[2021-08-15 05:59] LABS: Mean Corpuscular HGB Conc 30 % (30-34); Mean Corpuscular Volume 76 fl (79-97); Platelet Count 260 K/mm3 (140-440); Red Blood Count 4.16 M/mm3 (3.65-5.03)
[2021-08-15 06:00] LABS: Hematocrit 31.7 % (30.3-42.9); Hemoglobin 9.4 gm/dl (10.1-14.3); Red Cell Distribution Width 23.2 % (13.2-15.2)
[2021-08-15] MEDS: INDOMETHACIN 25 MG CAP PO SCH ×2 (06:15→15:31)
--- NOTE | 2021-08-15 07:54 | Progress Note ---
Assessment and Plan - Patient Problems (1) Hyperkalemia Current Visit: Yes Status: Acute Plan to address problem: Hyperkalemia due to nonadherence to dialysis treatment. Improved with dialysis. (2) Heel ulcer due to secondary DM Current Visit: Yes Status: Acute Plan to address problem: Continue wound care (3) Anemia in end-stage renal disease Current Visit: No Status: Acute Plan to address problem: Continue erythropoietin and iron replacement as indicated on dialysis (4) Atherosclerosis of artery of extremity with rest pain Current Visit: No Status: Acute Plan to address problem: Continue management by vascular surgeon (5) ESRD (end stage renal disease) on dialysis Current Visit: No Status: Acute Plan to address problem: Continue hemodialysis per schedule. Patient will need to follow-up with her outpatient clinic on discharge. Importance of adherence to dialysis has been reiterated (6) Hypertensive chronic kidney disease with stage 5 chronic kidney disease or end stage renal disease Current Visit: No Status: Acute Plan to address problem: Follow-up blood pressure on current medications (7) Type 2 diabetes mellitus with diabetic chronic kidney disease Current Visit: No Status: Acute Plan to address problem: Blood sugar management by primary attending Subjective Date of service: 08/15/21 Principal diagnosis: PVD with ulceration on second digit left hand Interval history: 56-year-old with end-stage renal disease secondary to diabetic kidney disease/hypertensive nephrosclerosis dialyzes in a clinic in [place] under the care of another nephrology group. Admitted with peripheral vascular disease with rest pain and ulceration and hand. Also has bilateral heel ulcers. Patient seen lying in bed. Still complains of pain in both heels. No nausea vomiting. Objective - Exam Narrative Exam: Middle-aged -[place] female lying in bed in no acute distress HEENT: NCAT, pink oral mucous membrane Neck: Supple, no venous distention CVS: S1S2 RRR with no murmur, rub or gallop Chest: Clear to auscultation Abdomen: Protuberant, soft, nontender, no organomegaly, bowel sounds are present Extremities: No edema, dressings both heels Genitourinary deferred Skin warm and dry dressings intact. Neuro: Awake, alert, deaf with speech impairment no focal deficits - Vital Signs Vital signs: Vital Signs - 12hr 08/14/21 08/14/21 08/14/21 20:02 20:18 20:24 Temperature 97.6 F Pulse Rate 75 75 Respiratory 16 Rate Blood Pressure 141/64 141/64 O2 Sat by Pulse 96 Oximetry 08/14/21 08/14/21 08/14/21 21:07 21:21 22:00 Temperature Pulse Rate 99 H 99 H Respiratory Rate Blood Pressure 144/66 O2 Sat by Pulse 97 96 Oximetry 08/15/21 06:04 Temperature 97.9 F Pulse Rate 75 Respiratory 19 Rate Blood Pressure 143/56 O2 Sat by Pulse 99 Oximetry - Lab 08/15/21 05:43 08/14/21 05:00 Most recent lab results Calcium 7.8 mg/dL (8.4-10.2) L 08/14/21 05:00 Phosphorus 12.20 mg/dL (2.5-4.5) H 08/07/21 09:45 Magnesium 2.40 mg/dL (1.7-2.3) H 08/07/21 09:45 Medications & Allergies - Medications Allergies/Adverse Reactions: Allergies No Known Allergies Allergy (Verified 06/25/21 13:05) Home Medications: Home Medications Medication Instructions Recorded Confirmed Last Taken Type Cinacalcet [Sensipar] 30 mg PO QDAY 30 Days #30 tablet 02/26/21 08/08/21 07/06/21 Rx Hydralazine HCl 50 mg PO TID 30 Days #90 tab 03/25/21 08/08/21 07/06/21 Rx Valsartan [Diovan] 80 mg PO QDAY 30 Days #30 tab 03/25/21 08/08/21 07/07/21 Rx sevelamer HCL [Sevelamer HCl] 800 mg PO TID 30 Days #90 tab 03/25/21 08/08/21 07/06/21 Rx Acetaminophen [Acetaminophen TAB] 650 mg PO Q4H PRN tablet 04/01/21 08/08/21 07/06/21 Rx carvediloL [Coreg] 25 mg PO Q12HR tablet 04/01/21 08/08/21 07/06/21 Rx Clopidogrel [Plavix] 75 mg PO QDAY #90 tablet 06/24/21 08/08/21 07/06/21 Rx Pentoxifylline 400 mg PO DAILY #90 06/24/21 08/08/21 07/06/21 Rx Furosemide [Lasix TAB] 20 mg PO QDAY #30 tablet 06/25/21 08/08/21 07/06/21 Rx ISOSORBIDE MONOnitrate [Imdur ER] 30 mg PO QDAY #30 tablet 06/25/21 08/08/21 07/06/21 Rx Venlafaxine [Effexor 37.5mg tab] 37.5 mg PO BID #30 tablet 06/25/21 08/08/21 07/06/21 Rx Apixaban [Eliquis] 2.5 mg PO BID #180 07/07/21 08/08/21 Unknown Rx Pantoprazole [Protonix TAB] 40 mg PO BID #180 tablet 07/07/21 08/08/21 Unknown Rx ALPRAZolam [Xanax TAB] 0.25 mg PO Q8H PRN #12 tablet 07/09/21 08/08/21 Unknown Rx NIFEdipine XL [Procardia Xl] 30 mg PO Q12HR #60 tablet 07/09/21 08/08/21 08/07/21 23:00 Rx oxyCODONE /ACETAMINOPHEN [Percocet 1 tab PO Q8H PRN #15 tablet 07/09/21 08/08/21 Unknown Rx 5/325 mg] Active Medications: Generic Name Dose Route Start Last Admin Trade Name Freq PRN Reason Stop Dose Admin Acetaminophen 650 mg 08/07/21 22:17 Acetaminophen 325 Mg Tab PO Q4H PRN Pain MILD(1-3)/Fever >100.5/PALOMINO Alprazolam 0.25 mg 08/07/21 22:22 08/15/21 05:00 Alprazolam 0.25 Mg Tab PO 0.25 mg Q8H PRN Administration Anxiety Apixaban 2.5 mg 08/13/21 22:00 08/14/21 21:21 Apixaban 2.5 Mg Tab PO 2.5 mg Q12HR SHRUTI Administration Protocol Carvedilol 25 mg 08/07/21 23:00 08/14/21 21:21 Carvedilol 25 Mg Tab PO 25 mg Q12HR SHRUTI Administration Cinacalcet 30 mg 08/08/21 10:00 08/14/21 10:24 Cinacalcet 30 Mg Tab PO 30 mg QDAY SHRUTI Administration Clopidogrel Bisulfate 75 mg 08/08/21 10:00 08/14/21 10:24 Clopidogrel 75 Mg Tab PO 75 mg QDAY SHRUTI Administration Colchicine 0.6 mg 08/08/21 08:00 08/14/21 10:24 Colchicine 0.6 Mg Tab PO 0.6 mg QOD SHRUTI Administration Furosemide 20 mg 08/08/21 10:00 08/14/21 10:24 Furosemide 20 Mg Tab PO 20 mg QDAY SHRUTI Administration Hydralazine HCl 50 mg 08/08/21 08:00 08/14/21 20:24 Hydralazine 25 Mg Tab PO 50 mg TID SHRUTI Administration Sodium Chloride 100 mls @ 999 mls/hr 08/07/21 13:29 Nacl 0.9% IV KEV PRN Hypotension Indomethacin 25 mg 08/08/21 07:00 08/15/21 06:15 Indomethacin 25 Mg Cap PO 25 mg Q8HR SHRUTI Administration Isosorbide Mononitrate 30 mg 08/08/21 10:00 08/14/21 10:24 Isosorbide Mononitrate Er 30 Mg Tab PO 30 mg QDAY SHRUTI Administration Metoclopramide HCl 2.5 mg 08/07/21 22:25 Metoclopramide 10 Mg/2 Ml Inj IV Q6H PRN Nausea And Vomiting Morphine Sulfate 2 mg 08/07/21 22:17 08/15/21 03:41 Morphine 2 Mg/1 Ml Inj IV 2 mg Q4H PRN Administration Pain, Moderate (4-6) Nifedipine 30 mg 08/07/21 23:00 08/14/21 21:22 Nifedipine Xl 30 Mg Tab PO 30 mg Q12HR SHRUTI Administration Ondansetron HCl 4 mg 08/07/21 22:17 Ondansetron 4 Mg/2 Ml Inj IV Q8H PRN Nausea And Vomiting Oxycodone/Acetaminophen 1 tab 08/07/21 22:17 08/15/21 00:58 Oxycodone /Acetaminophen 5-325mg Tab PO 1 tab Q6H PRN Administration Pain, Moderate (4-6) Pantoprazole Sodium 20 mg 08/10/21 20:00 08/14/21 07:23 Pantoprazole 20 Mg Tab PO 20 mg QDAC SHRUTI Administration Pentoxifylline 400 mg 08/08/21 10:00 08/14/21 10:24 Pentoxifylline Er 400 Mg Tab PO 400 mg DAILY SHRUTI Administration Prednisone 10 mg 08/08/21 10:00 08/14/21 10:24 Prednisone 10 Mg Tab PO 10 mg QDAY SHRUTI Administration Sevelamer Carbonate 800 mg 08/08/21 08:00 08/14/21 16:43 Sevelamer Carbonate 800 Mg Tab PO 800 mg TIDWM SHRUTI Administration Sodium Chloride 10 ml 08/07/21 23:00 08/14/21 21:22 Sodium Chloride 0.9% 10 Ml Flush Syringe IV 10 ml BID SHRUTI Administration Sodium Chloride 10 ml 08/07/21 22:17 Sodium Chloride 0.9% 10 Ml Flush Syringe IV PRN PRN LINE FLUSH Sterile Water 1.2 ml 08/09/21 22:45 08/09/21 23:03 Water For Inj Sterile (Pf) 10 Ml IM 1.2 ml Q12HR PRN Administration FOR GEODON DILUTION. Valsartan 80 mg 08/08/21 10:00 08/14/21 10:20 Valsartan 40 Mg Tab PO Not Given QDAY SHRUTI Venlafaxine HCl 37.5 mg 08/07/21 23:00 08/14/21 21:21 Venlafaxine 37.5 Mg Tab PO 37.5 mg BID SHRUTI Administration Ziprasidone 20 mg 08/09/21 19:59 08/09/21 23:03 Ziprasidone Mesylate 20 Mg Vial IM 20 mg Q12HR PRN Administration Agitation
[2021-08-15] MEDS: SEVELAMER CARBONATE 800 MG TAB PO SCH ×3 (09:17→17:32)
[2021-08-15] MEDS: PENTOXIFYLLINE ER 400 MG TAB PO SCH (09:17)
[2021-08-15] MEDS: VENLAFAXINE 37.5 MG TAB PO SCH (09:18)
[2021-08-15] MEDS: CLOPIDOGREL 75 MG TAB PO SCH (09:18)
[2021-08-15] MEDS: APIXABAN 2.5 MG TAB PO SCH (09:18)
[2021-08-15] MEDS: PANTOPRAZOLE 20 MG TAB PO SCH (09:18)
[2021-08-15] MEDS: predniSONE 10 MG TAB PO SCH (09:18)
[2021-08-15] MEDS: CINACALCET 30 MG TAB PO SCH (09:18)
[2021-08-15] MEDS: hydrALAZINE 25 MG TAB PO SCH ×2 (09:22→15:31)
[2021-08-15] MEDS: carvediloL 25 MG TAB PO SCH (09:22)
[2021-08-15] MEDS: VALSARTAN 40 MG TAB PO SCH ×2 (09:23→15:31)
[2021-08-15] MEDS: NIFEdipine XL 30 MG TAB PO SCH (09:23)
--- NOTE | 2021-08-15 09:26 | Discharge Summary ---
Providers - Providers Date of Admission: 08/07/21 22:17 Date of discharge: 08/15/21 Attending physician: ANA ESCOTO 08/07/21 10:56 Consult to Physician [CONS] Urgent Comment: Consulting Provider: BUCKY BRAR Physician Instructions: Reason For Exam: esrd 08/07/21 10:59 Consult to Physician [CONS] Urgent Comment: Consulting Provider: TASHIA HER Physician Instructions: Reason For Exam: PAD 08/08/21 07:06 Consult to Wound/ET Nurse [CONS] Routine Reason For Exam: wound eval 08/10/21 18:53 Consult to Physician [CONS] Routine Comment: Consulting Provider: KIERA ERAZO Physician Instructions: Reason For Exam: CHF/PAD 08/13/21 13:18 Consult to Physician [CONS] Routine Comment: Consulting Provider: LAWRENCE VAZQUEZ Physician Instructions: Reason For Exam: LE gangrene Primary care physician: [employer]GRAMMER Hospitalization Reason for admission: hand pain and numbness Condition: Fair Hospital course: 56-year-old female past medical history hypertension, PAD, ESRD on HD with a tunneled cath presented to hospital complaining of left hand pain and numbness dialysis sessions. She was found to have gangrene of the left foot. She was taken for revascularization on 08/12/2021, however as has been previously revascularized no further options were available. She is known to have multiple wounds on left foot, not appear to be acutely infected. The patient was admitted with diagnosis of left foot gangrene, hyperkalemia, volume overload, peripheral vascular disease, hypertension, history of atrial fibrillation, coronary artery disease, acute on chronic systolic heart failure, chronic heel ulcer, acute gouty arthritis and vascular dementia. The patient had a hype rkalemia treated in the emergency room with Kayexalate and was taken for emergent hemodialysis. The patient was seen by nephrology in consultation and underwent appropriate maintenance hemodialysis sessions throughout the rest of the hospitalization. Vascular surgery was consulted with regards to the left foot gangrene. The initial left hand pain was related to acute gouty arthritis treated with colchicine. As noted above, patient was taken for revascularization on 08/12/2021. However, Vascular surgery reports left lower extremity has been revascularized previously and cannot be revascularized further at this time. The left upper extremity has no bypass or revascularization options. Vascular surgery reports that options include cilostazol, but patient has heart failure which is a contraindication. Other options include Nitropaste administered to the area around the gangrene twice a day which can be discussed with the patient's sister at a later time. Patient should be evaluated for hyperbaric oxygen by outpatient wound care. I discussed the case with Dr. Her who recommends ID consultation for recommendations regarding discharge antibiotics. ID evaluated the patient and felt that there was no evidence of infection at the present time. ID felt that this was dry gangrene and given the general debility of the patient would not recommend long- term treatment with antibiotics regardless of any underlying infectious. However, ID did report patient with possible developing pneumonia and will discharge on Levaquin 250 mg every 24 hours x7 days. Dedicated discharge time 35 minutes Disposition: 01 HOME / SELF CARE / HOMELESS Final Discharge Diagnosis (Prints w/discharge instructions): left foot gangrene, hyperkalemia, volume overload, peripheral vascular disease, hypertension, history of atrial fibrillation, coronary artery disease, acute on chronic systolic heart failure, chronic heel ulcer, acute gouty arthritis and vascular dementia. Core Measure Documentation - Palliative Care Palliative Care/ Comfort Measures: Not Applicable - Core Measures Any of the following diagnoses?: none Exam - Constitutional Vitals: Temp Pulse Resp BP Pulse Ox 97.9 F 75 19 143/56 99 08/15/21 06:04 08/15/21 06:04 08/15/21 06:04 08/15/21 06:04 08/15/21 06:04 General appearance: Present: no acute distress, well-nourished - EENT Eyes: Present: PERRL ENT: hearing intact, clear oral mucosa - Neck Neck: Present: supple, normal ROM - Respiratory Respiratory effort: normal Respiratory: bilateral: CTA - Cardiovascular Heart Sounds: Present: S1 & S2. Absent: rub, click - Extremities Extremities: pulses symmetrical, No edema Peripheral Pulses: within normal limits - Abdominal General gastrointestinal: Present: soft, non-tender, non-distended, normal bowel sounds Female genitourinary: Present: normal - Integumentary Integumentary: Present: clear, warm, dry - Musculoskeletal Musculoskeletal: gait normal, strength equal bilaterally - Psychiatric Psychiatric: appropriate mood/affect, intact judgment & insight - Neurologic Neurologic: CNII-XII intact, moves all extremities Plan Activity: advance as tolerated Weight Bearing Status: Weight Bear as Tolerated Diet: renal Wound: per your surgeon's advice, per wound nurse instructions Follow up with: PRIMARY CARE, [Primary Care Provider] - 3-5 Days Prescriptions: carvediloL [Coreg] 25 mg PO Q12HR #60 tablet Valsartan [Diovan] 80 mg PO QDAY 30 Days #30 tab Venlafaxine [Effexor 37.5mg tab] 37.5 mg PO BID #30 tablet Apixaban [Eliquis] 2.5 mg PO Q12HR #60 tablet Hydralazine HCl 50 mg PO TID 30 Days #90 tab ISOSORBIDE MONOnitrate [Imdur ER] 30 mg PO QDAY #30 tablet Furosemide [Lasix TAB] 20 mg PO QDAY #30 tablet levoFLOXacin [Levaquin TAB] 250 mg PO Q24HR #7 tablet oxyCODONE /ACETAMINOPHEN [Percocet 5/325 mg] 1 tab PO Q6H PRN #8 tablet PRN Reason: Pain, Moderate (4-6) Clopidogrel [Plavix] 75 mg PO QDAY #90 tablet NIFEdipine XL [Procardia Xl] 30 mg PO Q12HR #60 tablet Cinacalcet [Sensipar] 30 mg PO QDAY 30 Days #30 tablet sevelamer HCL [Sevelamer HCl] 800 mg PO TID 30 Days #90 tab ALPRAZolam [Xanax TAB] 0.25 mg PO Q8H PRN #12 tablet PRN Reason: Anxiety
[2021-08-15] MEDS ORDERED: levoFLOXacin 250 MG TAB PO SCH (10:00)
--- NOTE | 2021-08-15 13:53 | Progress Note ---
Assessment and Plan - Patient Problems (1) Cardiomyopathy Current Visit: Yes Status: Acute (2) Hypertension Current Visit: No Status: Chronic Qualifiers: Hypertension type: primary hypertension Qualified Code(s): I10 - Essential (primary) hypertension (3) Insulin dependent diabetes mellitus Current Visit: No Status: Chronic Subjective Date of service: 08/15/21 Principal diagnosis: PVD with ulceration on second digit left hand Interval history: no CV c/o Objective Vital Signs Temp Pulse Resp BP Pulse Ox 08/15/21 09:23 96 08/15/21 06:04 97.9 F 75 19 143/56 99 08/14/21 22:00 96 08/14/21 21:21 99 H 144/66 08/14/21 21:07 99 H 97 08/14/21 20:24 75 141/64 08/14/21 20:18 75 96 08/14/21 20:02 97.6 F 16 141/64 08/14/21 15:57 97.8 F 70 16 138/66 98 - Physical Examination General: Appears Well, No Apparent Distress HEENT: Positive: PERRL, Normocephaly, Mucus Membranes Moist Neck: Positive: neck supple, trachea midline. Negative: JVD/HJR Lungs: Positive: clear to auscultation Neuro: Positive: Grossly Intact Abdomen: Positive: Soft, Active Bowel Sounds Gait: Normal Gait Extremities: Present: edema (TR.), Other (TRACE EDEMA,,,DRESSINGS,,DIM. PULSES) - Labs and Meds CBC 08/15/21 Range/Units 05:43 WBC 10.9 (4.5-11.0) K/mm3 RBC 4.16 (3.65-5.03) M/mm3 Hgb 9.4 L (10.1-14.3) gm/dl Hct 31.7 (30.3-42.9) % Plt Count 260 (140-440) K/mm3 - Imaging and Cardiology EKG: report reviewed (Sinus rhythm monitor ST-T wave changes.)
--- NOTE | 2021-08-15 15:17 | Progress Note ---
Assessment and Plan Cultures: None A/P: 56-year-old female past medical history hypertension, PAD, ESRD on HD #Left foot gangrene: No evidence of infection at the present time, more likely to be due to dry gangrene with PAD ulcers. 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 #Chronic wounds: needs wound care #Leukocytosis: currently on steroids which may be causing the elevation. #ESRD on HD: renally dose medications. Recs: -Given possible developing pneumonia ok to DC on Levaquin 250mg q24h for 7 days. Thank you for the consult, we will continue to follow. Anders Short MD [facility] ([facility]) O: [phone] F: [phone] Subjective Date of service: 08/15/21 Principal diagnosis: PVD with ulceration on second digit left hand Interval history: Afebrile, normal white count now. No acute issues. Objective - Exam Narrative Exam: Physical Exam: Constitutional: Alert, cooperative. No acute distress Head, Ears, Nose: Normocephalic, atraumatic. External ears, nose normal Eyes: Conjunctivae/corneas clear. No icterus. No ptosis. Neck: Supple, no meningeal signs Oral: dentition fair, no thrush Cardiovascular: S1, S2 normal. Respiratory: Good air entry, clear to auscultation bilaterally GI: Soft, non-tender; bowel sounds normal. No peritoneal signs. Musculoskeletal: Left leg gangrene, wounds Skin: No rash or abscess Hem/Lymphatic: No palpable cervical or supraclavicular nodes. No lymphangitis Psych: Mood ok. Affect normal Neurological: Awake, alert, oriented. No gross abnormality - Constitutional Vitals: Vital Signs Temp Pulse Resp BP Pulse Ox 97.9 F 75 19 143/56 96 08/15/21 06:04 08/15/21 06:04 08/15/21 06:04 08/15/21 06:04 08/15/21 09:23 Temperature -Last 24 Hours Temperature 97.9 F Temperature 97.6 F Temperature 97.8 F - Labs CBC & Chem 7: 08/15/21 05:43 08/14/21 05:00 Labs: Abnormal lab results 08/15/21 Range/Units 05:43 Hgb 9.4 L (10.1-14.3) gm/dl MCV 76 L (79-97) fl MCH 23 L (28-32) pg RDW 23.2 H (13.2-15.2) %
[2021-08-15] MEDS: FUROSEMIDE 20 MG TAB PO SCH (15:31)
[2021-08-15 17:35] VITALS: BP 144/66
== END 2021-08-15 18:10 | disposition home health service (06) | DRG 299 ==
LOC: ED 08:52 → 3A 22:17
PROVIDERS: ADMIT Internal Medicine; ATTEND Hospitalist
PROC: 5A1D70Z Performance of Urinary Filtration, Intermittent, Less than 6 Hours Per Day (ICD-10-PCS; 2021-08-07)
PROC: 5A1D70Z Performance of Urinary Filtration, Intermittent, Less than 6 Hours Per Day (ICD-10-PCS; 2021-08-09)
PROC: 5A1D70Z Performance of Urinary Filtration, Intermittent, Less than 6 Hours Per Day (ICD-10-PCS; 2021-08-11)
PROC: B4101ZZ Fluoroscopy of Abdominal Aorta using Low Osmolar Contrast (ICD-10-PCS; principal; 2021-08-12)
PROC: B41F1ZZ Fluoroscopy of Right Lower Extremity Arteries using Low Osmolar Contrast (ICD-10-PCS; 2021-08-12)
PROC: B41G1ZZ Fluoroscopy of Left Lower Extremity Arteries using Low Osmolar Contrast (ICD-10-PCS; 2021-08-12)
PROC: B3121ZZ Fluoroscopy of Left Subclavian Artery using Low Osmolar Contrast (ICD-10-PCS; 2021-08-12)
PROC: B31J1ZZ Fluoroscopy of Left Upper Extremity Arteries using Low Osmolar Contrast (ICD-10-PCS; 2021-08-12)
PROC: 5A1D70Z Performance of Urinary Filtration, Intermittent, Less than 6 Hours Per Day (ICD-10-PCS; 2021-08-13)
PROC: 5A1D70Z Performance of Urinary Filtration, Intermittent, Less than 6 Hours Per Day (ICD-10-PCS; 2021-08-15)
DX: I70.268 Atherosclerosis of native arteries of extremities with gangrene, other extremity (principal); G93.41 Metabolic encephalopathy; N18.6 End stage renal disease; I50.23 Acute on chronic systolic (congestive) heart failure; E87.2 Acidosis; L97.409 Non-pressure chronic ulcer of unspecified heel and midfoot with unspecified severity; F01.51 Vascular dementia, unspecified severity, with behavioral disturbance; E11.22 Type 2 diabetes mellitus with diabetic chronic kidney disease; E87.70 Fluid overload, unspecified; Z91.15 Patient's noncompliance with renal dialysis; E87.5 Hyperkalemia; D63.1 Anemia in chronic kidney disease; I25.10 Atherosclerotic heart disease of native coronary artery without angina pectoris; E78.5 Hyperlipidemia, unspecified; Z20.822 Contact with and (suspected) exposure to COVID-19
CPT/HCPCS: 36247; 36415; 71045; 71046; 75625; 75710; 76937; 80048; 80053; 80074; 82565; 82962; 83735; 83880; 84100; 85007; 85025; 85027; 85610; 85652; 85730; 86140; 93005; 93922; 93925; 93930; G0378; C1760; C1769; C1887; J0610; J0690; J1200; J1644; J2250; J2270; J3010; J3486; J7512; Q9967

== ENCOUNTER 2021-08-25 17:53 | Emergency (ER) | payer MEDICARE ==
[2021-08-25] MEDS ORDERED: oxyCODONE /ACETAMINOPHEN 5-325MG TAB PO ONE (18:15)
--- NOTE | 2021-08-25 18:16 | Event Note ---
Date: 08/25/21 EMS documentation not available at time of chart dictation Verbal report received from emergency medical services. Medical screening examination note, This patient is a 56-year-old female with a complex past medical history. In short, she has a history of hypertension, peripheral artery disease, end-stage renal disease on hemodialysis, with a tunneled catheter. She was recently admitted to the medical service for left hand wound. She was taken for revascularization on August 12, 2021, but reportedly had been vasculitis multiple times, and therefore, No additional surgical options were available. She is known to have multiple wounds on left foot, which did not appear to be acutely infected. She was admitted with diagnosis of dry gangrene, hyperkalemia, volume overload, peripheral vascular disease, hypertension, and vascular dementia. She was treated with hemodialysis. She was seen in consultation with nephrology and vascular surgery. Vascular surgery recommendations are reviewed and appreciated from recent discharge summary. Vascular surgery also reported that the left lower extremity had been revascularized previously, and cannot be further revascularized at this time. Left upper extremity has no bypass or revascularization options. Options include cilostazol, which is contraindicated given this patient's history of congestive heart failure. Nitropaste was also suggested, which could have been applied by family members at home. The patient is was also recommended for hyperbaric oxygen by outpatient wound care. Patient also seen by infectious disease, who did not feel that patient had active infection, but given that a recent x-ray suggested a possible pneumonia, the patient was discharged on Levaquin, to 50 mg every 24 hours, for 7 days. The patient is brought to the hospital by emergency medical services today with an EMS articulated complaint of chronic wound to the left foot, and left pointer finger. She has warm extremities. There is no redness, pus, streaking or obvious discharge. The left pointer finger wound appears to have dry gangrene, and is well circumscribed. Left great toe has dry gangrene and appears to be well-circumscribed. Vital signs are pending. Laboratory studies are reviewed and appreciated. X- ray of the left finger, and bilateral lower extremities as well as chest are pending. Lab Results 08/25/21 08/25/21 Range/Units 18:43 18:43 WBC 9.9 (4.5-11.0) K/mm3 RBC 3.52 L (3.65-5.03) M/mm3 Hgb 8.1 L (10.1-14.3) gm/dl Hct 26.8 L (30.3-42.9) % MCV 76 L (79-97) fl MCH 23 L (28-32) pg MCHC 30 (30-34) % RDW 23.2 H (13.2-15.2) % Plt Count 434 (140-440) K/mm3 Lymph % (Auto) 14.6 (13.4-35.0) % [place] % (Auto) 4.2 (0.0-7.3) % Eos % (Auto) 0.5 (0.0-4.3) % Baso % (Auto) 1.3 (0.0-1.8) % Lymph # (Auto) 1.4 (1.2-5.4) K/mm3 [place] # (Auto) 0.4 (0.0-0.8) K/mm3 Eos # (Auto) 0.1 (0.0-0.4) K/mm3 Baso # (Auto) 0.1 (0.0-0.1) K/mm3 Seg Neutrophils % 79.4 H (40.0-70.0) % Seg Neutrophils # 7.9 H (1.8-7.7) K/mm3 ESR TNR Sodium 136 L (137-145) mmol/L Potassium 4.6 (3.6-5.0) mmol/L Chloride 94.6 L (98-107) mmol/L Carbon Dioxide 26 (22-30) mmol/L Anion Gap 20 mmol/L BUN 44 H (7-17) mg/dL Creatinine 6.6 H (0.6-1.2) mg/dL Estimated GFR 8 ml/min BUN/Creatinine Ratio 7 % Glucose 140 H (65-100) mg/dL Calcium 8.4 (8.4-10.2) mg/dL Detailed history and physical to be performed by oncoming provider.
[2021-08-25 18:57] LABS: Basophils # (Auto) 0.1 K/mm3 (0.0-0.1); Basophils % (Auto) 1.3 % (0.0-1.8); Eosinophils # (Auto) 0.1 K/mm3 (0.0-0.4); Eosinophils % (Auto) 0.5 % (0.0-4.3); Hematocrit 26.8 % (30.3-42.9); Hemoglobin 8.1 gm/dl (10.1-14.3); Lymphocytes # (Auto) 1.4 K/mm3 (1.2-5.4); Lymphocytes % (Auto) 14.6 % (13.4-35.0); Mean Corpuscular HGB Conc 30 % (30-34); Mean Corpuscular Volume 76 fl (79-97); Monocytes # (Auto) 0.4 K/mm3 (0.0-0.8); Monocytes % (Auto) 4.2 % (0.0-7.3); Platelet Count 434 K/mm3 (140-440); Red Blood Count 3.52 M/mm3 (3.65-5.03)
[2021-08-25 18:59] LABS: Red Cell Distribution Width 23.2 % (13.2-15.2)
[2021-08-25 19:01] LABS: Erythrocyte Sedimentation Rate TNR mm/Hr (0-20)
[2021-08-25 19:11] LABS: Calcium 8.4 mg/dL (8.4-10.2)
[2021-08-25 19:36] VITALS: BP 140/88
[2021-08-25 20:05] LABS: C-Reactive Protein 10.9 mg/dL (0.00-1.30)
--- NOTE | 2021-08-25 20:26 | XRay Report ---
LEFT HAND 3 VIEW(S) INDICATION / CLINICAL INFORMATION: left finger dry gangrene COMPARISON: 08/07/21 FINDINGS: BONES / JOINT(S): No acute fracture or subluxation. No significant arthritis. Interval decreased bone stock of the tuft of the distal phalanx of the index finger. SOFT TISSUES: Interval soft tissue distortion of the distal left index finger with the tuft of the di stal phalanx protruding beyond the skin surface. ADDITIONAL FINDINGS: Extensive vascular calcifications characteristic of diabetes and/or renal failur e IMPRESSION: 1. Soft tissue ulceration of the distal left index finger with bone protruding through the skin. Signer Name: Delaney Goncalves MD Signed: 08/25/2021 8:21 PM Workstation Name: [id number]
[2021-08-25] MEDS ORDERED: oxyCODONE /ACETAMINOPHEN 5-325MG TAB ONE (20:28)
--- NOTE | 2021-08-25 20:29 | XRay Report ---
RIGHT FOOT 3 VIEW(S) INDICATION / CLINICAL INFORMATION: foot pain and wound. unable to get socks off....stuck to wounds on bottom of feet COMPARISON: 08/07/21 FINDINGS: BONES / JOINT(S): No acute fracture or subluxation. No significant arthritis. No definite osseous tereso truction. SOFT TISSUES: Moderately deep soft tissue ulcer on the lateral aspect of the heel measuring 1.7 cm in diameter with a depth of about 0.5 cm. ADDITIONAL FINDINGS: Extensive vascular calcifications characteristic of diabetes and/or renal failur e. IMPRESSION: 1. Lateral hindfoot soft tissue ulcer. No definite radiographic evidence for osteomyelitis. Signer Name: Delaney Goncalves MD Signed: 08/25/2021 8:25 PM Workstation Name: [id number]
--- NOTE | 2021-08-25 20:30 | XRay Report ---
CHEST 1 VIEW 08/25/2021 7:20 PM INDICATION / CLINICAL INFORMATION: ESRD assess for edema vs pna. COMPARISON: 08/13/21 FINDINGS: SUPPORT DEVICES: Left PermCath is unchanged. HEART / MEDIASTINUM: Mildly enlarged but stable. LUNGS / PLEURA: No acute airspace disease. Mild pulmonary venous congestion with mild bibasilar edema . No pneumothorax. ADDITIONAL FINDINGS: No significant additional findings. IMPRESSION: 1. Mild cardiomegaly with mild bibasilar edema. No acute airspace disease. Signer Name: Delaney Goncalves MD Signed: 08/25/2021 8:26 PM Workstation Name: [id number]
--- NOTE | 2021-08-25 20:56 | Emergency Department Report ---
ED General Adult HPI - General Chief complaint: Extremity Injury, Lower Stated complaint: LEFT FINGER PAIN Time Seen by Provider: 08/25/21 19:34 Source: patient, EMS (Verbal report received from emergency medical services. EMS documentation not available at time of chart dictation ), RN notes reviewed, old records reviewed Mode of arrival: Stretcher Limitations: Other - History of Present Illness Initial comments: The patient was evaluated in the emergency department for symptoms described in the history of present illness. He/she was evaluated in the context of the global COVID-19 pandemic, which necessitated consideration that the patient might be at risk for infection with the virus that causes COVID-19. Institutional protocols and algorithms that pertain to the evaluation of patients at risk for COVID-19 are in a state of rapid change based on information released by regulatory bodies including the CDC and federal and state organizations. These policies and algorithms were followed during the patient's care in the emergency department. Please note that these policies, procedures and recommendations changed on a rapid basis. This is a 56-year-old female, who was just discharged from the hospital, presenting today with emergency medical services with an EMS articulated complaints of chronic finger pain, and chronic joint pain. The patient was recently admitted to this hospital, and had extensive thorough work-up and evaluation with vascular surgery, internal medicine, infectious disease, and nephrology. Please reference her recent discharge summary for the details of her recent hospitalization. Essentially, patient presents with persistent pain in her left finger and foot wounds. EMS reports unremarkable vital signs in the field. EMS reports unremarkable Accu-Chek in the field. No other complaints are endorsed. -: days(s), week(s) Location: left, right, upper extremity, lower extremity Severity scale (0 -10): 10 - Related Data Previous Rx's Medication Instructions Recorded Last Taken Type Acetaminophen [Acetaminophen TAB] 650 mg PO Q4H PRN tablet 04/01/21 07/06/21 Rx Pentoxifylline 400 mg PO DAILY #90 06/24/21 07/06/21 Rx Apixaban [Eliquis] 2.5 mg PO BID #180 07/07/21 Unknown Rx Pantoprazole [Protonix TAB] 40 mg PO BID #180 tablet 07/07/21 Unknown Rx oxyCODONE /ACETAMINOPHEN [Percocet 1 tab PO Q8H PRN #15 tablet 07/09/21 Unknown Rx 5/325 mg] ALPRAZolam [Xanax TAB] 0.25 mg PO Q8H PRN #12 tablet 08/15/21 Unknown Rx Apixaban [Eliquis] 2.5 mg PO Q12HR #60 tablet 08/15/21 Unknown Rx Cinacalcet [Sensipar] 30 mg PO QDAY 30 Days #30 tablet 08/15/21 Unknown Rx Clopidogrel [Plavix] 75 mg PO QDAY #90 tablet 08/15/21 Unknown Rx Furosemide [Lasix TAB] 20 mg PO QDAY #30 tablet 08/15/21 Unknown Rx Hydralazine HCl 50 mg PO TID 30 Days #90 tab 08/15/21 Unknown Rx ISOSORBIDE MONOnitrate [Imdur ER] 30 mg PO QDAY #30 tablet 08/15/21 Unknown Rx NIFEdipine XL [Procardia Xl] 30 mg PO Q12HR #60 tablet 08/15/21 Unknown Rx Pantoprazole [Protonix TAB] 20 mg PO QDAC tablet. 08/15/21 Unknown Rx Valsartan [Diovan] 80 mg PO QDAY 30 Days #30 tab 08/15/21 Unknown Rx Venlafaxine [Effexor 37.5mg tab] 37.5 mg PO BID #30 tablet 08/15/21 Unknown Rx carvediloL [Coreg] 25 mg PO Q12HR #60 tablet 08/15/21 Unknown Rx levoFLOXacin [Levaquin TAB] 250 mg PO Q24HR #7 tablet 08/15/21 Unknown Rx oxyCODONE /ACETAMINOPHEN [Percocet 1 tab PO Q6H PRN #8 tablet 08/15/21 Unknown Rx 5/325 mg] predniSONE 10 mg PO QDAY tablet 08/15/21 Unknown Rx sevelamer HCL [Sevelamer HCl] 800 mg PO TID 30 Days #90 tab 08/15/21 Unknown Rx Allergies Allergy/AdvReac Type Severity Reaction Status Date / Time No Known Allergies Allergy Verified 06/25/21 13:05 ED Review of Systems ROS: Stated complaint: LEFT FINGER PAIN Other details as noted in HPI Constitutional: denies: fever Respiratory: see HPI Cardiovascular: as per HPI Endocrine: see HPI Gastrointestinal: as per HPI Genitourinary: as per HPI Musculoskeletal: arthralgia, myalgia ED Past Medical Hx - Past Medical History Hx Hypertension: Yes Hx Heart Attack/AMI: No Hx Congestive Heart Failure: No Hx Diabetes: Yes Hx Deep Vein Thrombosis: No Hx Liver Disease: No Hx Renal Disease: Yes (dialysis //Wed) Hx Kidney Stones: No Hx Asthma: No Hx COPD: No Additional medical history: Deaf - Surgical History Hx Coronary Stent: No Hx Pacemaker: No Hx Internal Defibrillator: No Additional Surgical History: right chest permacath - Social History Smoking Status: Never Smoker - Medications Home Medications: Home Medications Medication Instructions Recorded Confirmed Last Taken Type Acetaminophen [Acetaminophen TAB] 650 mg PO Q4H PRN tablet 04/01/21 08/08/21 07/06/21 Rx Pentoxifylline 400 mg PO DAILY #90 06/24/21 08/08/21 07/06/21 Rx Apixaban [Eliquis] 2.5 mg PO BID #180 07/07/21 08/08/21 Unknown Rx Pantoprazole [Protonix TAB] 40 mg PO BID #180 tablet 07/07/21 08/08/21 Unknown Rx oxyCODONE /ACETAMINOPHEN [Percocet 1 tab PO Q8H PRN #15 tablet 07/09/21 08/08/21 Unknown Rx 5/325 mg] ALPRAZolam [Xanax TAB] 0.25 mg PO Q8H PRN #12 tablet 08/15/21 Unknown Rx Apixaban [Eliquis] 2.5 mg PO Q12HR #60 tablet 08/15/21 Unknown Rx Cinacalcet [Sensipar] 30 mg PO QDAY 30 Days #30 tablet 08/15/21 Unknown Rx Clopidogrel [Plavix] 75 mg PO QDAY #90 tablet 08/15/21 Unknown Rx Furosemide [Lasix TAB] 20 mg PO QDAY #30 tablet 08/15/21 Unknown Rx Hydralazine HCl 50 mg PO TID 30 Days #90 tab 08/15/21 Unknown Rx ISOSORBIDE MONOnitrate [Imdur ER] 30 mg PO QDAY #30 tablet 08/15/21 Unknown Rx NIFEdipine XL [Procardia Xl] 30 mg PO Q12HR #60 tablet 08/15/21 Unknown Rx Pantoprazole [Protonix TAB] 20 mg PO QDAC tablet. 08/15/21 Unknown Rx Valsartan [Diovan] 80 mg PO QDAY 30 Days #30 tab 05/27/22 Unknown Rx Venlafaxine [Effexor 37.5mg tab] 37.5 mg PO BID #30 tablet 08/15/21 Unknown Rx carvediloL [Coreg] 25 mg PO Q12HR #60 tablet 08/15/21 Unknown Rx levoFLOXacin [Levaquin TAB] 250 mg PO Q24HR #7 tablet 08/15/21 Unknown Rx oxyCODONE /ACETAMINOPHEN [Percocet 1 tab PO Q6H PRN #8 tablet 08/15/21 Unknown Rx 5/325 mg] predniSONE 10 mg PO QDAY tablet 08/15/21 Unknown Rx sevelamer HCL [Sevelamer HCl] 800 mg PO TID 30 Days #90 tab 08/15/21 Unknown Rx ED Physical Exam - General Limitations: No Limitations General appearance: alert, anxious - Head Head exam: Present: atraumatic, normocephalic - Eye Eye exam: Present: normal appearance, EOMI. Absent: nystagmus - ENT ENT exam: Present: normal exam, normal orophraynx, mucous membranes moist, normal external ear exam - Neck Neck exam: Present: normal inspection, full ROM. Absent: tenderness, meningismus - Respiratory Respiratory exam: Present: normal lung sounds bilaterally, other (There is a anterior tunneled vascular access catheter noted, without redness, pus or streaking). Absent: respiratory distress, wheezes, rales, rhonchi, stridor - Cardiovascular Cardiovascular Exam: Present: regular rate, normal rhythm, normal heart sounds. Absent: bradycardia, tachycardia, irregular rhythm, systolic murmur, diastolic murmur, rubs, gallop - GI/Abdominal GI/Abdominal exam: Present: soft. Absent: distended, tenderness, guarding, rebound, rigid, pulsatile mass - Extremities Exam Extremities exam: Present: full ROM, other (On the left great toe, there is well-circumscribed dry gangrene. Chronic appearing heel ulcers noted in the bilateral lower extremities, without redness, pus or streaking.). Absent: normal inspection (On the distal tip of the left pointer finger, there is dry gangrene noted. The upper extremities are warm, well-perfused, without redness, pus or streaking.), calf tenderness - Back Exam Back exam: Present: normal inspection. Absent: tenderness, CVA tenderness (R), CVA tenderness (L), paraspinal tenderness, vertebral tenderness - Neurological Exam Neurological exam: Present: alert, other (There is no facial droop. The tongue is midline. EOMI. 5/5 strength in 4 extremities.) - Psychiatric Psychiatric exam: Present: anxious - Skin Skin exam: Present: warm, dry, intact, normal color, other (There is dry gangrene noted to the left pointer finger. There is dry gangrene noted to the left great toe. Chronic appearing wounds on the bilateral feet, without redness, pus or streaking. There is appropriate granulation tissue.). Absent: rash ED Course Vital Signs 08/25/21 19:34 Temperature 98.4 F Pulse Rate 88 Respiratory 16 Rate Blood Pressure 140/88 [Right] O2 Sat by Pulse 98 Oximetry ED Medical Decision Making - Lab Data Result diagrams: 08/25/21 18:43 08/25/21 18:43 Vital Signs 08/25/21 19:34 Temperature 98.4 F Pulse Rate 88 Respiratory 16 Rate Blood Pressure 140/88 [Right] O2 Sat by Pulse 98 Oximetry Vital Signs 08/25/21 19:34 Temperature 98.4 F Pulse Rate 88 Respiratory 16 Rate Blood Pressure 140/88 [Right] O2 Sat by Pulse 98 Oximetry Lab Results 08/25/21 08/25/21 Range/Units 18:43 18:43 WBC 9.9 (4.5-11.0) K/mm3 RBC 3.52 L (3.65-5.03) M/mm3 Hgb 8.1 L (10.1-14.3) gm/dl Hct 26.8 L (30.3-42.9) % MCV 76 L (79-97) fl MCH 23 L (28-32) pg MCHC 30 (30-34) % RDW 23.2 H (13.2-15.2) % Plt Count 434 (140-440) K/mm3 Lymph % (Auto) 14.6 (13.4-35.0) % [place] % (Auto) 4.2 (0.0-7.3) % Eos % (Auto) 0.5 (0.0-4.3) % Baso % (Auto) 1.3 (0.0-1.8) % Lymph # (Auto) 1.4 (1.2-5.4) K/mm3 [place] # (Auto) 0.4 (0.0-0.8) K/mm3 Eos # (Auto) 0.1 (0.0-0.4) K/mm3 Baso # (Auto) 0.1 (0.0-0.1) K/mm3 Seg Neutrophils % 79.4 H (40.0-70.0) % Seg Neutrophils # 7.9 H (1.8-7.7) K/mm3 ESR TNR Sodium 136 L (137-145) mmol/L Potassium 4.6 (3.6-5.0) mmol/L Chloride 94.6 L (98-107) mmol/L Carbon Dioxide 26 (22-30) mmol/L Anion Gap 20 mmol/L BUN 44 H (7-17) mg/dL Creatinine 6.6 H (0.6-1.2) mg/dL Estimated GFR 8 ml/min BUN/Creatinine Ratio 7 % Glucose 140 H (65-100) mg/dL Calcium 8.4 (8.4-10.2) mg/dL C-Reactive Protein 10.90 H (0.00-1.30) mg/dL - Radiology Data Radiology results: pending, report reviewed, image reviewed LEFT HAND 3 VIEW(S) INDICATION / CLINICAL INFORMATION: left finger dry gangrene COMPARISON: 08/07/21 FINDINGS: BONES / JOINT(S): No acute fracture or subluxation. No significant arthritis. Interval decreased bone stock of the tuft of the distal phalanx of the index finger. SOFT TISSUES: Interval soft tissue distortion of the distal left index finger with the tuft of the distal phalanx protruding beyond the skin surface. ADDITIONAL FINDINGS: Extensive vascular calcifications characteristic of diabetes and/or renal failure IMPRESSION: 1. Soft tissue ulceration of the distal left index finger with bone protruding through the skin. Signer Name: Delaney Goncalves MD Signed: 08/25/2021 7:21 PM Workstation Name: [id number] CHEST 1 VIEW 08/25/2021 7:20 PM INDICATION / CLINICAL INFORMATION: ESRD assess for edema vs pna. COMPARISON: 08/13/21 FINDINGS: SUPPORT DEVICES: Left PermCath is unchanged. HEART / MEDIASTINUM: Mildly enlarged but stable. LUNGS / PLEURA: No acute airspace disease. Mild pulmonary venous congestion with mild bibasilar edema. No pneumothorax. ADDITIONAL FINDINGS: No significant additional findings. IMPRESSION: 1. Mild cardiomegaly with mild bibasilar edema. No acute airspace disease. Signer Name: Delaney Goncalves MD Signed: 08/25/2021 7:26 PM Workstation Name: [id number] RIGHT FOOT 3 VIEW(S) INDICATION / CLINICAL INFORMATION: foot pain and wound. unable to get socks off....stuck to wounds on bottom of feet COMPARISON: 08/07/21 FINDINGS: BONES / JOINT(S): No acute fracture or subluxation. No significant arthritis. No definite osseous destruction. SOFT TISSUES: Moderately deep soft tissue ulcer on the lateral aspect of the heel measuring 1.7 cm in diameter with a depth of about 0.5 cm. ADDITIONAL FINDINGS: Extensive vascular calcifications characteristic of diabetes and/or renal failure. IMPRESSION: 1. Lateral hindfoot soft tissue ulcer. No definite radiographic evidence for osteomyelitis. Signer Name: Delaney Goncalves MD Signed: 08/25/2021 7:25 PM Workstation Name: [id number] - Medical Decision Making Differential diagnosis, including but not limited to: End-stage renal disease on hemodialysis, dry gangrene, chronic pain, peripheral artery disease, chronic pain syndrome Assessment and plan: 56-year-old female whom I recently admitted to the medical service for gangrene and peripheral artery disease. She had an extensive thorough work-up and evaluation while here in the hospital, and she had a prolonged stay. Her wounds do not appear to be superinfected. Her wounds appear to be similar to when I previously evaluated her. She is afebrile, with reassuring vital signs, and the remainder of her physical examination is essentially unremarkable. She has warm upper and lower extremities, and no pain with passive range of motion. Unfortunately, options are limited, given recent vascular surgery intervention and evaluation. Nevertheless, this patient does not appear to have an emergent medical condition present at this time. She arrives with a bag filled with prescription bottles. She also arrives with her most recent discharge summary. Have ordered case management consultation, to see if patient is eligible for home assistance. She was treated with Percocet for her chronic pain. The patient is observed in this department for hours without clinical decompensation. Critical care attestation.: If time is entered above; I have spent that time in minutes in the direct care of this critically ill patient, excluding procedure time. ED Disposition Clinical Impression: ESRD (end stage renal disease), Gangrene of toe of left foot, Peripheral vascular disease, Chronic anemia, Chronic heel ulcer, Gangrene of finger of left hand Disposition: 01 HOME / SELF CARE / HOMELESS Is pt being admited?: No Does the pt Need Aspirin: No Condition: Good Additional Instructions: Please continue current outpatient medications. Please follow-up with your outpatient vascular surgeon within the next week. During patient's recent admission and hospitalization, it was recommended to apply Nitropaste to the affected area of gangrene, in the left upper extremity and left lower extremity, twice a day, to be administered by family or caregiver. We also recommend that the patient follow-up with an outpatient primary care doctor, or data storage specialist, for evaluation of outpatient hyperbaric oxygen. Unfortunately, patient has peripheral artery disease, and she will continue to experience gangrene in her upper and lower extremities. At some point in time, her left distal fingertip and left great toe will self amputate. Recommend compliance with outpatient dialysis schedule, please follow-up with your outpatient primary care doctor or recreational therapy technician within the next week. Please return to the emergency room right away with new pain, worsened pain, migration of pain, projectile vomiting, change in mental status, confusion, inability tolerate liquid feeds, new, worsened or different symptoms not present on the initial emergency room evaluation Referrals: [facility] [Outside] - 3-5 Days TASHIA HER MD [Staff Physician] - 3-5 Days ELLEN LOPEZ MD [Staff Physician] - 3-5 Days
== END 2021-08-25 22:28 | disposition home or self-care (01) ==
LOC: ED 17:53
DX: I12.0 Hypertensive chronic kidney disease with stage 5 chronic kidney disease or end stage renal disease (principal); E11.22 Type 2 diabetes mellitus with diabetic chronic kidney disease; N18.6 End stage renal disease; Z99.2 Dependence on renal dialysis; E11.52 Type 2 diabetes mellitus with diabetic peripheral angiopathy with gangrene; I96 Gangrene, not elsewhere classified; D64.9 Anemia, unspecified; L89.609 Pressure ulcer of unspecified heel, unspecified stage; H91.90 Unspecified hearing loss, unspecified ear; Z98.890 Other specified postprocedural states
CPT/HCPCS: 36415; 71045; 80048; 85025; 86140; 99284

== ENCOUNTER 2021-09-01 12:11 | Outpatient (CLI) | payer MEDICARE ==
[2021-09-01] MEDS ORDERED: LIDOCAINE (4%) 40 MG/ML TOPICAL SOLN 50 ML BOTTLE TP ONE (16:30)
== END 2021-09-01 12:12 | disposition home or self-care (01) ==
LOC: WOUND 12:11
PROVIDERS: ATTEND Surgery
DX: E11.621 Type 2 diabetes mellitus with foot ulcer (principal); I70.263 Atherosclerosis of native arteries of extremities with gangrene, bilateral legs; L89.620 Pressure ulcer of left heel, unstageable; L97.421 Non-pressure chronic ulcer of left heel and midfoot limited to breakdown of skin; L89.610 Pressure ulcer of right heel, unstageable; L97.412 Non-pressure chronic ulcer of right heel and midfoot with fat layer exposed; L89.890 Pressure ulcer of other site, unstageable; L89.152 Pressure ulcer of sacral region, stage 2; L84 Corns and callosities; E11.22 Type 2 diabetes mellitus with diabetic chronic kidney disease; N18.6 End stage renal disease; Z99.2 Dependence on renal dialysis; Z87.891 Personal history of nicotine dependence; Z79.899 Other long term (current) drug therapy

== ENCOUNTER 2021-09-02 12:55 | Emergency (ER) | payer MEDICARE ==
[2021-09-02 13:40] VITALS: BP 157/79
[2021-09-02 15:14] LABS: Basophils # (Auto) 0.1 K/mm3 (0.0-0.1); Basophils % (Auto) 0.6 % (0.0-1.8); Eosinophils % (Auto) 0.4 % (0.0-4.3); Hematocrit 22.5 % (30.3-42.9); Hemoglobin 6.9 gm/dl (10.1-14.3); Lymphocytes # (Auto) 1.2 K/mm3 (1.2-5.4); Lymphocytes % (Auto) 9.7 % (13.4-35.0); Mean Corpuscular HGB Conc 31 % (30-34); Mean Corpuscular Volume 76 fl (79-97); Monocytes # (Auto) 0.7 K/mm3 (0.0-0.8); Monocytes % (Auto) 5.6 % (0.0-7.3); Platelet Count 465 K/mm3 (140-440); Red Blood Count 2.97 M/mm3 (3.65-5.03)
[2021-09-02 15:21] LABS: Red Cell Distribution Width 24.7 % (13.2-15.2)
[2021-09-02 15:33] LABS: Albumin 3.5 g/dL (3.9-5); Blood Urea Nitrogen 61 mg/dL (7-17); Calcium 8.9 mg/dL (8.4-10.2); Hemolysis Index 0
[2021-09-02 15:37] LABS: Alanine Aminotransferase < 5 units/L (7-56); BUN/Creatinine Ratio 8
[2021-09-02 16:09] LABS: Chol/HDL Ratio 3.53 %; HDL Cholesterol 49 mg/dL (40-59); LDL Cholesterol,Direct 106 mg/dL (50-130)
== END 2021-09-03 05:00 | disposition left against medical advice (07) ==
LOC: ED 12:55
DX: N19 Unspecified kidney failure (principal); Z53.21 Procedure and treatment not carried out due to patient leaving prior to being seen by health care provider
CPT/HCPCS: 36415; 80053; 80061; 84484; 85025

== ENCOUNTER 2021-09-08 14:20 | Inpatient (IN) | payer MEDICARE ==
--- NOTE | 2021-09-08 15:31 | Emergency Department Report ---
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 Patient is bedridden according to her sister. Patient brought to the emergency room via EMS from home accompanied by her sister. Sister stated that since yesterday patient has been having some confusion and not eating. She stated that she became more disoriented. Sister stated that she missed dialysis yesterday. Patient also found to have a low- grade temperature. Patient is unable to provide any history. MD Complaint: altered mental status, confusion -: days(s) (2) Severity: severe - Related Data Previous Rx's Medication Instructions Recorded Last Taken Type Acetaminophen [Acetaminophen TAB] 650 mg PO Q4H PRN tablet 04/01/21 07/06/21 Rx Pentoxifylline 400 mg PO DAILY #90 06/24/21 07/06/21 Rx Apixaban [Eliquis] 2.5 mg PO BID #180 07/07/21 Unknown Rx ALPRAZolam [Xanax TAB] 0.25 mg PO Q8H PRN #12 tablet 08/15/21 Unknown Rx Cinacalcet [Sensipar] 30 mg PO QDAY 30 Days #30 tablet 08/15/21 Unknown Rx Clopidogrel [Plavix] 75 mg PO QDAY #90 tablet 08/15/21 Unknown Rx Furosemide [Lasix TAB] 20 mg PO QDAY #30 tablet 08/15/21 Unknown Rx Hydralazine HCl 50 mg PO TID 30 Days #90 tab 08/15/21 Unknown Rx ISOSORBIDE MONOnitrate [Imdur ER] 30 mg PO QDAY #30 tablet 08/15/21 Unknown Rx NIFEdipine XL [Procardia Xl] 30 mg PO Q12HR #60 tablet 08/15/21 Unknown Rx Pantoprazole [Protonix TAB] 20 mg PO QDAC tablet. 08/15/21 Unknown Rx Valsartan [Diovan] 80 mg PO QDAY 30 Days #30 tab 08/15/21 Unknown Rx Venlafaxine [Effexor 37.5mg tab] 37.5 mg PO BID #30 tablet 08/15/21 Unknown Rx carvediloL [Coreg] 25 mg PO Q12HR #60 tablet 08/15/21 Unknown Rx sevelamer HCL [Sevelamer HCl] 800 mg PO TID 30 Days #90 tab 08/15/21 Unknown Rx diphenhydrAMINE [Benadryl CAP] 25 mg PO Q6H PRN 7 Days #28 capsule 08/29/21 Unknown Rx oxyCODONE /ACETAMINOPHEN [Percocet 1 tab PO Q4H PRN 5 Days #30 tablet 08/29/21 Unknown Rx 5/325 mg] Allergies Allergy/AdvReac Type Severity Reaction Status Date / Time No Known Allergies Allergy Verified 09/08/21 14:34 ED Review of Systems ROS: Stated complaint: ALTERED MENTAL STATUS/SEPSIS POSS Other details as noted in HPI Comment: Unobtainable due to pts medical conditions ED Past Medical Hx - Past Medical History Hx Hypertension: Yes Hx Heart Attack/AMI: No Hx Congestive Heart Failure: Yes Hx Diabetes: Yes Hx Deep Vein Thrombosis: No Hx Liver Disease: No Hx Renal Disease: Yes (dialysis //Wed) Hx Kidney Stones: No Hx Asthma: No Hx COPD: No Additional medical history: Deaf, " heart disease" per family, bilateral foot ulcers - Surgical History Past Surgical History?: Yes Hx Coronary Stent: No Hx Pacemaker: No Hx Internal Defibrillator: No Additional Surgical History: right chest permacath - Social History Smoking Status: Never Smoker Substance Use Type: Alcohol - Medications Home Medications: Home Medications Medication Instructions Recorded Confirmed Last Taken Type Acetaminophen [Acetaminophen TAB] 650 mg PO Q4H PRN tablet 04/01/21 08/28/21 07/06/21 Rx Pentoxifylline 400 mg PO DAILY #90 06/24/21 08/28/21 07/06/21 Rx Apixaban [Eliquis] 2.5 mg PO BID #180 07/07/21 08/28/21 Unknown Rx ALPRAZolam [Xanax TAB] 0.25 mg PO Q8H PRN #12 tablet 08/15/21 08/28/21 Unknown Rx Cinacalcet [Sensipar] 30 mg PO QDAY 30 Days #30 tablet 08/15/21 08/28/21 Unknown Rx Clopidogrel [Plavix] 75 mg PO QDAY #90 tablet 08/15/21 08/28/21 Unknown Rx Furosemide [Lasix TAB] 20 mg PO QDAY #30 tablet 08/15/21 08/28/21 Unknown Rx Hydralazine HCl 50 mg PO TID 30 Days #90 tab 08/15/21 08/28/21 Unknown Rx ISOSORBIDE MONOnitrate [Imdur ER] 30 mg PO QDAY #30 tablet 08/15/21 08/28/21 Unknown Rx NIFEdipine XL [Procardia Xl] 30 mg PO Q12HR #60 tablet 08/15/21 08/28/21 Unknown Rx Pantoprazole [Protonix TAB] 20 mg PO QDAC tablet. 08/15/21 08/28/21 Unknown Rx Valsartan [Diovan] 80 mg PO QDAY 30 Days #30 tab 08/15/21 08/28/21 Unknown Rx Venlafaxine [Effexor 37.5mg tab] 37.5 mg PO BID #30 tablet 08/15/21 08/28/21 Unknown Rx carvediloL [Coreg] 25 mg PO Q12HR #60 tablet 08/15/21 08/28/21 Unknown Rx sevelamer HCL [Sevelamer HCl] 800 mg PO TID 30 Days #90 tab 08/15/21 08/28/21 Unknown Rx diphenhydrAMINE [Benadryl CAP] 25 mg PO Q6H PRN 7 Days #28 capsule 08/29/21 Unknown Rx oxyCODONE /ACETAMINOPHEN [Percocet 1 tab PO Q4H PRN 5 Days #30 tablet 08/29/21 Unknown Rx 5/325 mg] ED Physical Exam - General Limitations: No Limitations General appearance: alert, in no apparent distress - Head Head exam: Present: atraumatic, normocephalic, normal inspection - ENT ENT exam: Present: mucous membranes dry - Neck Neck exam: Present: normal inspection, full ROM. Absent: tenderness, meningismus - Respiratory Respiratory exam: Present: decreased breath sounds. Absent: respiratory distress, wheezes - Cardiovascular Cardiovascular Exam: Present: regular rate, normal rhythm, normal heart sounds - GI/Abdominal GI/Abdominal exam: Present: soft, normal bowel sounds. Absent: distended, tenderness, guarding, rebound, rigid - Neurological Exam Neurological exam: Present: alert, altered - Psychiatric Psychiatric exam: Present: flat affect - Skin Skin exam: Present: warm, dry ED Course Vital Signs 09/08/21 09/08/21 09/08/21 15:16 15:18 16:48 Temperature 99.5 F Pulse Rate 83 69 Respiratory 13 90 H Rate Blood Pressure 142/67 125/37 [Left] O2 Sat by Pulse 97 100 Oximetry - Lab Data Result diagrams: 09/08/21 15:56 09/08/21 15:56 Lab Results 09/08/21 09/08/21 09/08/21 Range/Units 15:56 15:56 15:56 WBC 23.5 H (4.5-11.0) K/mm3 RBC 2.58 L (3.65-5.03) M/mm3 Hgb 6.1 L (10.1-14.3) gm/dl Hct 19.6 L* (30.3-42.9) % MCV 76 L (79-97) fl MCH 24 L (28-32) pg MCHC 31 (30-34) % RDW 24.9 H (13.2-15.2) % Plt Count 487 H (140-440) K/mm3 Seg Neutrophils % [employer] Helper PT 19.1 H (12.2-14.9) Sec. INR 1.42 H (0.87-1.13) APTT 37.7 H (24.2-36.6) Sec. Sodium 130 L (137-145) mmol/L Potassium 5.7 H (3.6-5.0) mmol/L Chloride 91.7 L (98-107) mmol/L Carbon Dioxide 19 L (22-30) mmol/L Anion Gap 25 mmol/L BUN 92 H (7-17) mg/dL Creatinine 8.6 H (0.6-1.2) mg/dL Estimated GFR 6 ml/min BUN/Creatinine Ratio 11 % Glucose 147 H (65-100) mg/dL Lactic Acid (0.7-2.0) mmol/L Calcium 8.5 (8.4-10.2) mg/dL Total Bilirubin (0.1-1.2) mg/dL Direct Bilirubin (0-0.2) mg/dL Indirect Bilirubin mg/dL AST (5-40) units/L ALT (7-56) units/L Alkaline Phosphatase (35-129) units/L Ammonia (25-60) umol/L Total Creatine Kinase 77 (30-135) units/L Total Protein (6.3-8.2) g/dL Albumin (3.9-5) g/dL Albumin/Globulin Ratio % 09/08/21 09/08/21/ Range/Units 15:56 15:56 15:56 WBC (4.5-11.0) K/mm3 RBC (3.65-5.03) M/mm3 Hgb (10.1-14.3) gm/dl Hct (30.3-42.9) % MCV (79-97) fl MCH (28-32) pg MCHC (30-34) % RDW (13.2-15.2) % Plt Count (140-440) K/mm3 Seg Neutrophils % PT (12.2-14.9) Sec. INR (0.87-1.13) APTT (24.2-36.6) Sec. Sodium (137-145) mmol/L Potassium (3.6-5.0) mmol/L Chloride (98-107) mmol/L Carbon Dioxide (22-30) mmol/L Anion Gap mmol/L BUN (7-17) mg/dL Creatinine (0.6-1.2) mg/dL Estimated GFR ml/min BUN/Creatinine Ratio % Glucose (65-100) mg/dL Lactic Acid 1.50 (0.7-2.0) mmol/L Calcium (8.4-10.2) mg/dL Total Bilirubin 0.50 (0.1-1.2) mg/dL Direct Bilirubin 0.4 H (0-0.2) mg/dL Indirect Bilirubin 0.1 mg/dL AST 25 (5-40) units/L ALT 10 (7-56) units/L Alkaline Phosphatase 180 H (35-129) units/L Ammonia 19.0 L (25-60) umol/L Total Creatine Kinase (30-135) units/L Total Protein 6.7 (6.3-8.2) g/dL Albumin 3.0 L (3.9-5) g/dL Albumin/Globulin Ratio 0.8 % - Radiology Data Radiology results: report reviewed - Medical Decision Making Patient is 56-year-old female with history of end-stage renal disease on hemodialysis, hypertension, diabetes and 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 Patient is bedridden according to her sister. Patient brought to the emergency room via EMS from home accompanied by her sister. Sister stated that since yesterday patient has been having some confusion and not eating. She stated that she became more disoriented. Sister stated that she missed dialysis yesterday. Patient also found to have a low- grade temperature. Patient is unable to provide any history. Vital signs remained stable in the ER. CT brain is negative for acute finding CT abdomen and pelvis is unremarkable. Labs reviewed and showed a leukocytosis of 23,000. I believe patient infection resources is from her chronic wound. Patient received Zosyn and vancomycin. Chest x-ray is unremarkable except for CHF. Hemoglobin is 6.1. I wrote for 2 units of PRBC. I discussed the patient with Dr. Gutierrez, he agreed to admit the patient to medical service for further management. Critical Care Time: Yes Critical care time in (mins) excluding proc time.: 35 Critical care attestation.: If time is entered above; I have spent that time in minutes in the direct care of this critically ill patient, excluding procedure time. ED Disposition Clinical Impression: Acute metabolic encephalopathy, End-stage renal disease needing dialysis, Sepsis, Acute on chronic anemia Disposition: ADMITTED INPATIENT Is pt being admited?: Yes Condition: Stable
--- NOTE | 2021-09-08 15:54 | XRay Report ---
CHEST 1 VIEW INDICATION / CLINICAL INFORMATION: Altered Mental Status. COMPARISON: 08/27/2021 FINDINGS: SUPPORT DEVICES: Left sided dialysis catheter again has tip overlying right atrium. HEART / MEDIASTINUM: Stable cardiomegaly. LUNGS / PLEURA: Mild increased interstitial markings. No pneumothorax. ADDITIONAL FINDINGS: Old healed left rib fractures. IMPRESSION: 1. Mild CHF Signer Name: Masoud Britt MD Signed: 09/08/2021 3:47 PM Workstation Name: [email or web address]
[2021-09-08] MEDS ORDERED: SODIUM CHLORIDE 0.9% 500 ML 500 ML IV ONE ×2 (16:07→17:54)
[2021-09-08 16:13] LABS: Hemoglobin 6.1 gm/dl (10.1-14.3); Mean Corpuscular HGB Conc 31 % (30-34); Mean Corpuscular Volume 76 fl (79-97); Platelet Count 487 K/mm3 (140-440); Red Blood Count 2.58 M/mm3 (3.65-5.03)
[2021-09-08 16:18] LABS: Hematocrit 19.6 % (30.3-42.9); Red Cell Distribution Width 24.9 % (13.2-15.2)
[2021-09-08] MEDS ORDERED: LORazepam 2 MG/ML VIAL IV ONE (16:20)
[2021-09-08 16:26] LABS: INR 1.42 (0.87-1.13)
[2021-09-08 16:27] LABS: Partial Thromboplastin Time 37.7 Sec. (24.2-36.6)
[2021-09-08 16:36] LABS: Calcium 8.5 mg/dL (8.4-10.2)
[2021-09-08 16:37] LABS: Bilirubin,Direct 0.4 mg/dL (0-0.2)
[2021-09-08] MEDS ORDERED: PIPERACILLIN/TAZOBACTAM 3.375 3.375 GM/50 ML BAG IV ONE (17:13)
[2021-09-08] MEDS ORDERED: VANCOMYCIN/NS 1 GM/250 ML 1 GM/250 ML BAG IV ONE (17:13)
--- NOTE | 2021-09-08 17:33 | Cat Scan Report ---
. CT ABDOMEN AND PELVIS WITHOUT CONTRAST HISTORY: ABDOMINAL PAIN. COMPARISON: CT abdomen/pelvis from 02/25/2021 TECHNIQUE: CT images of the abdomen and pelvis were obtained without administration of intravenous co ntrast. All CT scans at this location are performed using CT dose reduction for ALARA by means of au tomated exposure control. FINDINGS: Lungs/bones: Lung bases are clear. There is moderate cardiomegaly. Degenerative changes are present in the spine and the pelvis with erosive changes again seen in the right SI joint and centered at the pubic symphysis. Abdomen/pelvis: There is large volume ascites. There is hepatomegaly with no acute abnormality ident ified. Gallbladder is mostly contracted. No stone disease. The spleen, pancreas, adrenals, kidneys, a nd proximal GI tract appear unremarkable. There are extensive vascular calcifications throughout the entire abdomen and mesentery as well as the lower extremities. Urinary bladder is mostly collapsed but grossly unremarkable. Uterus is absent. There is colonic dive rticulosis with no acute inflammation identified. Mild generalized body wall edema is present. IMPRESSION: 1. Findings of volume overload including ascites and anasarca. 2. Additional incidental findings as above with nothing acute otherwise. Signer Name: Maurice Franklin MD Signed: 09/08/2021 5:29 PM Workstation Name: [id number]
--- NOTE | 2021-09-08 17:34 | Cat Scan Report ---
CT HEAD WITHOUT CONTRAST INDICATION / CLINICAL INFORMATION: Altered Mental Status. TECHNIQUE: All CT scans at this location are performed using CT dose reduction for ALARA by means of automated exposure control. COMPARISON: CT from 04/06/2020. FINDINGS: BRAIN PARENCHYMA: No acute intracranial hemorrhage. No evidence of recent infarct. No mass effect or midline shift. Chronic small vessel ischemic changes. Empty sella turcica again noted. VENTRICULAR SYSTEM/EXTRA-AXIAL SPACES: Unchanged ventricular prominence, may be related to atrophy. N o extra-axial fluid collection. ORBITS: No acute findings. SKELETAL SYSTEM/SOFT TISSUES: Normal bones and soft tissues. PARANASAL SINUSES/MASTOID AIR CELLS: No significant abnormality. ADDITIONAL FINDINGS: None. IMPRESSION: 1. No acute intracranial abnormality. Signer Name: Jeferson Mcmanus MD Signed: 09/08/2021 5:30 PM Workstation Name: [email or web address]
--- NOTE | 2021-09-08 18:01 | History and Physical Report ---
History of Present Illness Chief complaint: She is not acting like herself History of present illness: 56 YO Female with ESRD on HD(T,R,Sa), DM, HTN, Deaf/Mute, Noncompliance, PVD S/P Revascularizaion, RLE Ischemia complicated by Rest Pain but patient refused Amputation as recommended by Vascular Surgery team, Chronic Extremity gangrene. Patient is deaf and mute and unable to provide detailed history. Patient hist ory provided by sister who was made available by telephone for interview. As per sister the patient has experienced increased confusion, diminished oral intake and as a result the patient missed her previous dialysis session. EMS was notified and upon arrival the patient was found to be in distress and subsequent transported to [facility] for further care and evaluation of the aforementioned symptoms. The patient was seen and evaluated in the emergency department. All lab and imaging studies reviewed. Patient found to have sepsis suspected secondary to cellulitis, end-stage renal disease, metabolic acidosis, hyperkalemia. Nephrology team consulted. Patient sister acknowledges subjective fever but denies chills, chest pain, palpitation, productive cough, skin rash, recent contact, known exposure to COVID-19. Prior admission on 08/27/2021 reviewed. All medication listed at time of admission has been reconciled. Advanced care planning conducted in ED. Past History Past Medical History: diabetes, ESRD, hypertension, PVD Past Surgical History: Other (Dialysis access) Social history: Family history: hypertension Medications and Allergies Allergies Allergy/AdvReac Type Severity Reaction Status Date / Time No Known Allergies Allergy Verified 09/08/21 14:34 Home Medications Medication Instructions Recorded Confirmed Last Taken Type Acetaminophen [Acetaminophen TAB] 650 mg PO Q4H PRN tablet 04/01/21 08/28/21 07/06/21 Rx Pentoxifylline 400 mg PO DAILY #90 06/24/21 08/28/21 07/06/21 Rx Apixaban [Eliquis] 2.5 mg PO BID #180 07/07/21 08/28/21 Unknown Rx ALPRAZolam [Xanax TAB] 0.25 mg PO Q8H PRN #12 tablet 08/15/21 08/28/21 Unknown Rx Cinacalcet [Sensipar] 30 mg PO QDAY 30 Days #30 tablet 08/15/21 08/28/21 Unknown Rx Clopidogrel [Plavix] 75 mg PO QDAY #90 tablet 08/15/21 08/28/21 Unknown Rx Furosemide [Lasix TAB] 20 mg PO QDAY #30 tablet 08/15/21 08/28/21 Unknown Rx Hydralazine HCl 50 mg PO TID 30 Days #90 tab 08/15/21 08/28/21 Unknown Rx ISOSORBIDE MONOnitrate [Imdur ER] 30 mg PO QDAY #30 tablet 08/15/21 08/28/21 Unknown Rx NIFEdipine XL [Procardia Xl] 30 mg PO Q12HR #60 tablet 08/15/21 08/28/21 Unknown Rx Pantoprazole [Protonix TAB] 20 mg PO QDAC tablet. 08/15/21 08/28/21 Unknown Rx Valsartan [Diovan] 80 mg PO QDAY 30 Days #30 tab 08/15/21 08/28/21 Unknown Rx Venlafaxine [Effexor 37.5mg tab] 37.5 mg PO BID #30 tablet 08/15/21 08/28/21 Unknown Rx carvediloL [Coreg] 25 mg PO Q12HR #60 tablet 08/15/21 08/28/21 Unknown Rx sevelamer HCL [Sevelamer HCl] 800 mg PO TID 30 Days #90 tab 08/15/21 08/28/21 Unknown Rx diphenhydrAMINE [Benadryl CAP] 25 mg PO Q6H PRN 7 Days #28 capsule 08/29/21 Unknown Rx oxyCODONE /ACETAMINOPHEN [Percocet 1 tab PO Q4H PRN 5 Days #30 tablet 08/29/21 Unknown Rx 5/325 mg] Active Meds: Active Medications Vancomycin HCl (Vancomycin/Ns 1 Gm/250 Ml) 1 gm in 250 mls @ 167.007 mls/hr IV ONCE ONE; Protocol Stop: 09/08/21 18:42 Review of Systems ROS unobtainable: due to mental status Exam - Constitutional Vitals: Temp Pulse Resp BP Pulse Ox 99.5 F 69 90 H 125/37 100 09/08/21 15:16 09/08/21 16:48 09/08/21 16:48 09/08/21 16:48 09/08/21 15:18 General appearance: Present: mild distress, obese - EENT Eyes: Present: PERRL ENT: hearing intact, clear oral mucosa - Neck Neck: Present: supple, normal ROM - Respiratory Respiratory effort: normal Respiratory: bilateral: diminished - Cardiovascular Heart Sounds: Present: S1 & S2. Absent: rub, click Peripheral Pulses: abnormal (Capillary refill greater than 3.5 seconds, pulses 1+ equal bilateral lower extremities) - Abdominal General gastrointestinal: Present: soft, non-tender, non-distended - Integumentary Integumentary: Present: dry, clammy, decreased turgor - Musculoskeletal Musculoskeletal: generalized weakness - Psychiatric Psychiatric: no appropriate mood/affect, no intact judgment & insight, no memory intact - Neurologic Neurologic: CNII-XII intact, moves all extremities, no gait normal Results - Labs CBC & Chem 7: 09/08/21 15:56 09/08/21 15:56 Labs: Abnormal lab results 09/08/21 09/08/21 09/08/21 Range/Units 15:56 15:56 15:56 WBC 23.5 H (4.5-11.0) K/mm3 RBC 2.58 L (3.65-5.03) M/mm3 Hgb 6.1 L (10.1-14.3) gm/dl Hct 19.6 L* (30.3-42.9) % MCV 76 L (79-97) fl MCH 24 L (28-32) pg RDW 24.9 H (13.2-15.2) % Plt Count 487 H (140-440) K/mm3 PT 19.1 H (12.2-14.9) Sec. INR 1.42 H (0.87-1.13) APTT 37.7 H (24.2-36.6) Sec. Sodium 130 L (137-145) mmol/L Potassium 5.7 H (3.6-5.0) mmol/L Chloride 91.7 L (98-107) mmol/L Carbon Dioxide 19 L (22-30) mmol/L BUN 92 H (7-17) mg/dL Creatinine 8.6 H (0.6-1.2) mg/dL Glucose 147 H (65-100) mg/dL Direct Bilirubin (0-0.2) mg/dL Alkaline Phosphatase (35-129) units/L Ammonia (25-60) umol/L Albumin (3.9-5) g/dL 09/08/21 09/08/21 Range/Units 15:56 15:56 WBC (4.5-11.0) K/mm3 RBC (3.65-5.03) M/mm3 Hgb (10.1-14.3) gm/dl Hct (30.3-42.9) % MCV (79-97) fl MCH (28-32) pg RDW (13.2-15.2) % Plt Count (140-440) K/mm3 PT (12.2-14.9) Sec. INR (0.87-1.13) APTT (24.2-36.6) Sec. Sodium (137-145) mmol/L Potassium (3.6-5.0) mmol/L Chloride (98-107) mmol/L Carbon Dioxide (22-30) mmol/L BUN (7-17) mg/dL Creatinine (0.6-1.2) mg/dL Glucose (65-100) mg/dL Direct Bilirubin 0.4 H (0-0.2) mg/dL Alkaline Phosphatase 180 H (35-129) units/L Ammonia 19.0 L (25-60) umol/L Albumin 3.0 L (3.9-5) g/dL Assessment and Plan - Patient Problems (1) Sepsis Current Visit: Yes Status: Acute Plan to address problem: Sepsis protocol,: IV fluid resuscitation therapy, IV antibiotic therapy, CBC, CMP, monitor urine output every shift, maintain mean arterial pressure greater than equal to 65, blood culture, serial lactic acid level. (2) Cellulitis Current Visit: Yes Status: Acute Qualifiers: Site of cellulitis: extremity Plan to address problem: IV antibiotic therapy, supportive care. (3) Peripheral vascular disease Current Visit: Yes Status: Acute Plan to address problem: Chronic ischemia complicated by gangrene. Vascular surgery team recommended amputation. Patient family declined. Patient is at high risk for worsening symptoms due to lower extremity compromise and worsening cellulitis. (4) Deaf Current Visit: No Status: Acute Qualifiers: Laterality: bilateral Qualified Code(s): H91.93 - Unspecified hearing loss, bilateral Plan to address problem: Supportive care. (5) End stage renal disease Current Visit: No Status: Acute Plan to address problem: Nephrology team consulted in ED, dialysis as per renal team. (6) Lower limb ischemia Current Visit: No Status: Acute Plan to address problem: Chronic, continue current therapy. (7) Volume overload Current Visit: No Status: Acute Qualifiers: Hypervolemia type: unspecified Qualified Code(s): E87.70 - Fluid overload, unspecified Plan to address problem: Dialysis as per renal team, supportive care, monitor fluid balance. (8) DVT prophylaxis Current Visit: No Status: Acute Plan to address problem: SCD to bilateral lower extremities while in bed continue therapeutic anticoagula tion. (9) Advance care planning Current Visit: No Status: Acute Plan to address problem: Disease education done, care plan discussed, diagnoses discussed, prognosis discussed, patient is full code. Patient family acknowledges and understanding and agreement with care plan. +30 minutes. (10) Preventative health care Current Visit: Yes Status: Acute Plan to address problem: Risk factor reduction, supportive home safety precautions, supportive care. Patient family instructed to have patient follow-up with primary care physician for all age and risk factor appropriate screening test. +30 minutes.
[2021-09-08] MEDS ORDERED: ACETAMINOPHEN 325 MG TAB PO PRN (18:05)
[2021-09-08] MEDS ORDERED: ACETAMINOPHEN 650 MG RECT SUPP PR PRN (18:05)
[2021-09-08 18:42] LABS: Anisocytosis 2+; Basophils % (Manual) 0 % (0.0-1.8); Burr Cells 1+; Eosinophils % (Manual) 0 % (0.0-4.3); Hypochromasia 2+; Platelet Estimate Consistent w Auto; Poikilocytosis 1+; Total Cells Counted 100
[2021-09-08] MEDS: MORPHINE 4 MG/1 ML INJ IV PRN (21:22)
[2021-09-08] MEDS ORDERED: SODIUM CHLORIDE 0.9% 500 ML 500 ML ONE (21:54)
[2021-09-08] MEDS: HYDROmorphone 0.5 MG/0.5 ML INJ IV PRN (22:18)
[2021-09-09] MEDS: HYDROmorphone 0.5 MG/0.5 ML INJ IV PRN ×4 (03:06→21:59)
[2021-09-09] MEDS: MORPHINE 4 MG/1 ML INJ IV PRN (05:15)
[2021-09-09 05:41] LABS: Hematocrit 32.4 % (30.3-42.9); Hemoglobin 10.4 gm/dl (10.1-14.3); Mean Corpuscular HGB Conc 32 % (30-34); Mean Corpuscular Volume 80 fl (79-97); Platelet Count 496 K/mm3 (140-440); Red Blood Count 4.04 M/mm3 (3.65-5.03)
[2021-09-09 05:45] LABS: Red Cell Distribution Width 24.8 % (13.2-15.2)
[2021-09-09 06:01] LABS: Albumin 2.5 g/dL (3.9-5); Calcium 9.2 mg/dL (8.4-10.2)
[2021-09-09 06:33] LABS: Basophils % (Manual) 0 % (0.0-1.8); Eosinophils % (Manual) 0 % (0.0-4.3); Hypochromasia 2+; Total Cells Counted 100
[2021-09-09 06:34] LABS: Anisocytosis 2+
[2021-09-09 06:35] LABS: Ovalocytes Rare; Poikilocytosis 1+
[2021-09-09 06:36] LABS: Platelet Estimate Consistent w Auto
[2021-09-09] MEDS ORDERED: MORPHINE 2 MG/1 ML INJ IV PRN (09:59)
[2021-09-09] MEDS ORDERED: FAMOTIDINE 20 MG/2 ML INJ IV SCH (10:00)
--- NOTE | 2021-09-09 10:16 | Progress Note ---
<PACHECO DAVILA - Last Filed: 09/09/21 18:10> Assessment and Plan Assessment and plan: This is a 56-year-old female with known past medical history of Deaf, ESRD on HD(T,R,Sa), HTN, DM, PVD s/p revascularization, chronic limbs ischemia, and medical noncompliance admitted for sepsis most likely due to LLE gangrene/cellulitus Hospital Course to Date: 09/09: LLE grangrene/cellullitis with foul odor noted. Patient also with leukocytosis, remains afebrile. Continue empiric IV abx for now, ID also consulted. Patient is s/p 2units of PRBCs, H&H improved this am. No s/s of any active bleeding, continue to trend H&H. According to patient's sister, patient eventually agreed to the Vascular Surgery recommendation for amputation and is scheduled to have her LLE amputated by Dr. Llamas. Vascular Surgery consulted. Anasarca and large volume ascites also reported from CTAP, orders placed for US paracentesis. Assessment and Plan #Sepsis #Leukocytosis #Left Lower Extremity iscehmia with Gangrene/Cellutis - Presented with LLE ischemia with gangrene and foul odor and leukocytosi - Patient is afebrile, VSS - Blood cultures pending - Continue empiric IV Abx for now - ID consulted - Patient refused LLE amputation last admission - Per patient's sister, patient eventually agreed to the Vascular Surgery recommendation for amputation and is scheduled to have her LLE amputated by Dr. Llamas - Vascular Surgery consulted for LLE ischemia eval and possible amputation - Continue to F/U on cultures - Daily CBC monitor - Wound Care consulted #Peripheral Vascular Disease(PVD) #Chronic Limb ischemia #Left Lower Extremity Ischemia with gangrene - Chronic ischemia complicated by gangrene - Vascular Surgery recommended amputation last admission, patient refused at the time - Per patient's sister, patient eventually agreed to the Vascular Surgery recommendation for amputation and is scheduled to have her LLE amputated by Dr. Llamas. - Vascular Surgery Consulted for possible amputation - Wound care consulted #Acute Metabolic Encephalopathy - most likely secondary to infectious process - Patient is awake but confused, very SELDOVIA - CT head/Brain with no acute intracranial abnormalities - Continue IV abx, possible LLE amputation - Avoid benzodiazepine to reduce the possibility of delirium - Maintenance of sleep-wake cycle #Hypertension - Updated home list pending - Resume home antihypertensives - Continue blood pressure monitor per protocol - Maintain SBP less than 160 #End-Stage Renal Disease(ESRD) on HD #Volume overload #Hyperkalemia #Noncompliance - Patient missed her previous dialysis session - Nephrology on consult, appreciated recommendation - HD per Nephro - Strict intake and output - Avoid nephrotoxic medications; Renally dose medications - Monitor and replace electrolytes as needed #Large Volume Ascites - Noted from CTAP - US paracentesis ordered #Acute Pain - due to LLE ischemia/gangrene - PRN Analgesia for pain control #Anemia of Chronic Disease - probably due to ESRD - presented with hgb of 6.1, s/p 2units of PRBCs - No s/s of any active bleeding - H&H stable this morning - Continue to trend H&H - Epogen per Nephro - Transfuse for hgb less than 7 #Type 2 Diabetes Mellitus - SSI and BH check ACHS - Avoid hypoglycemia - While critically ill target blood glucose of 140-180 #GI/DVT Prophylaxis - PPI- Protonix - SCD to bilateral lower extremities while in bed #Advance Care Planning - Disease education done, care plan, diagnoses, and prognosis discussed with the patient's sister. Patient is a FULL code. Patient's family acknowledged and understanding and agreement with current care plan. The high probability of a clinically significant, sudden or life threatening deterioration of the [multiple] system(s) required my full and direct attention, intervention and personal management. The aggregate critical care time was [60] minutes. This time is in addition to time spent performing reported procedures but includes the following: [x] Data Review and interpretation [x] Patient assessment and monitoring of vital signs [x] Documentation [x] Medication orders and management Disposition Plan: ICU Total Time Spent with Patient (Minutes): 60 History Interval history: Patient seen and examined at the bedside. Patient appears to be in distress, screaming/yelling in pain and guarding LLE. Patient is confused, but very SELDOVIA, following simple commands. LLE ischemia with foul odor noted, clean dressing present. LUE dressing also noted, VSS. Hospitalist Physical - Constitutional Vitals: Temp Pulse Resp BP Pulse Ox 97.9 F 72 18 154/79 98 09/09/21 02:54 09/09/21 04:10 09/09/21 05:45 09/09/21 02:45 09/09/21 02:45 General appearance: Present: mild distress, obese - EENT Eyes: Present: PERRL ENT: other (Very SELDOVIA) - Neck Neck: Present: normal ROM - Respiratory Respiratory effort: normal Respiratory: bilateral: diminished - Cardiovascular Rhythm: regular Heart Sounds: Present: S1 & S2 - Extremities Extremities: abnormal (LLE ischemia, malodourous) Extremity abnormal: edema - Peripheral Assessment Generalized Edema Type: Non-pitting Peripheral Pulses: abnormal - Abdominal General gastrointestinal: soft, distended, normal bowel sounds, hepatomegaly, other (Anasarca) - Integumentary Integumentary: Present: warm - Psychiatric Psychiatric: other (Awake but confused. Very SELDOVIA) - Neurologic Neurologic: moves all extremities (LLE and LUE guarded due to pain), other (Awake but confused. Very SELDOVIA) - Allied Health Allied health notes reviewed: nursing, case management Results - Labs CBC & Chem 7: 09/09/21 04:41 09/09/21 04:41 Labs: Laboratory Last Values WBC 26.0 K/mm3 (4.5-11.0) H 09/09/21 04:41 RBC 4.04 M/mm3 (3.65-5.03) 09/09/21 04:41 Hgb 10.4 gm/dl (10.1-14.3) D 09/09/21 04:41 Hct 32.4 % (30.3-42.9) D 09/09/21 04:41 MCV 80 fl (79-97) 09/09/21 04:41 MCH 26 pg (28-32) L 09/09/21 04:41 MCHC 32 % (30-34) 09/09/21 04:41 RDW 24.8 % (13.2-15.2) H 09/09/21 04:41 Plt Count 496 K/mm3 (140-440) H 09/09/21 04:41 Add Manual Diff Complete 09/09/21 04:41 Total Counted 100 09/09/21 04:41 Seg Neutrophils % Shoe Repair Supervisor 09/09/21 04:41 Seg Neuts % (Manual) 96.0 % (40.0-70.0) H 09/09/21 04:41 Band Neutrophils % 0 % 09/09/21 04:41 Lymphocytes % (Manual) 3.0 % (13.4-35.0) L 09/09/21 04:41 Reactive Lymphs % (Man) 0 % 09/09/21 04:41 Monocytes % (Manual) 1.0 % (0.0-7.3) 09/09/21 04:41 Eosinophils % (Manual) 0 % (0.0-4.3) 09/09/21 04:41 Basophils % (Manual) 0 % (0.0-1.8) 09/09/21 04:41 Metamyelocytes % 0 % 09/09/21 04:41 Myelocytes % 0 % 09/09/21 04:41 Promyelocytes % 0 % 09/09/21 04:41 Blast Cells % 0 % 09/09/21 04:41 Nucleated RBC % 1.0 % (0.0-0.9) H 09/09/21 04:41 Seg Neutrophils # Man 25.0 K/mm3 (1.8-7.7) H 09/09/21 04:41 Band Neutrophils # 0.0 K/mm3 09/09/21 04:41 Lymphocytes # (Manual) 0.8 K/mm3 (1.2-5.4) L 09/09/21 04:41 Abs React Lymphs (Man) 0.0 K/mm3 09/09/21 04:41 Monocytes # (Manual) 0.3 K/mm3 (0.0-0.8) 09/09/21 04:41 Eosinophils # (Manual) 0.0 K/mm3 (0.0-0.4) 09/09/21 04:41 Basophils # (Manual) 0.0 K/mm3 (0.0-0.1) 09/09/21 04:41 Metamyelocytes # 0.0 K/mm3 09/09/21 04:41 Myelocytes # 0.0 K/mm3 09/09/21 04:41 Promyelocytes # 0.0 K/mm3 09/09/21 04:41 Blast Cells # 0.0 K/mm3 09/09/21 04:41 WBC Morphology Not Reportable 09/09/21 04:41 Hypersegmented Neuts Not Reportable 09/09/21 04:41 Hyposegmented Neuts Not Reportable 09/09/21 04:41 Hypogranular Neuts Not Reportable 09/09/21 04:41 Smudge Cells Not Reportable 09/09/21 04:41 Toxic Granulation Not Reportable 09/09/21 04:41 Toxic Vacuolation Not Reportable 09/09/21 04:41 Dohle Bodies Not Reportable 09/09/21 04:41 Pelger-Huet Anomaly Not Reportable 09/09/21 04:41 Cosme Rods Not Reportable 09/09/21 04:41 Platelet Estimate Consistent w auto 09/09/21 04:41 Clumped Platelets Not Reportable 09/09/21 04:41 Plt Clumps, EDTA Not Reportable 09/09/21 04:41 Large Platelets Not Reportable 09/09/21 04:41 Giant Platelets Not Reportable 09/09/21 04:41 Platelet Satelliting Not Reportable 09/09/21 04:41 Plt Morphology Comment Not Reportable 09/09/21 04:41 RBC Morphology Not Reportable 09/09/21 04:41 Dimorphic RBCs Not Reportable 09/09/21 04:41 Polychromasia Not Reportable 09/09/21 04:41 Hypochromasia 2+ 09/09/21 04:41 Poikilocytosis 1+ 09/09/21 04:41 Anisocytosis 2+ 09/09/21 04:41 Microcytosis Not Reportable 09/09/21 04:41 Macrocytosis Not Reportable 09/09/21 04:41 Spherocytes Not Reportable 09/09/21 04:41 Pappenheimer Bodies Not Reportable 09/09/21 04:41 Sickle Cells Not Reportable 09/09/21 04:41 Target Cells Not Reportable 09/09/21 04:41 Tear Drop Cells Not Reportable 09/09/21 04:41 Ovalocytes Rare 09/09/21 04:41 Helmet Cells Not Reportable 09/09/21 04:41 [place] Bodies Not Reportable 09/09/21 04:41 [place] Rings Not Reportable 09/09/21 04:41 [place] Cells Not Reportable 09/09/21 04:41 Bite Cells Not Reportable 09/09/21 04:41 Crenated Cell Not Reportable 09/09/21 04:41 Elliptocytes Few 09/09/21 04:41 Acanthocytes (Spur) Few 09/09/21 04:41 Rouleaux Not Reportable 09/09/21 04:41 Hemoglobin C Crystals Not Reportable 09/09/21 04:41 Schistocytes Not Reportable 09/09/21 04:41 Malaria parasites Not Reportable 09/09/21 04:41 Jozef Bodies Not Reportable 09/09/21 04:41 Hem Pathologist Commnt No 09/09/21 04:41 PT 19.1 Sec. (12.2-14.9) H 09/08/21 15:56 INR 1.42 (0.87-1.13) H 09/08/21 15:56 APTT 37.7 Sec. (24.2-36.6) H 09/08/21 15:56 Sodium 133 mmol/L (137-145) L 09/09/21 04:41 Potassium 5.4 mmol/L (3.6-5.0) H 09/09/21 04:41 Chloride 94.7 mmol/L (98-107) L 09/09/21 04:41 Carbon Dioxide 18 mmol/L (22-30) L 09/09/21 04:41 Anion Gap 26 mmol/L 09/09/21 04:41 BUN 96 mg/dL (7-17) H 09/09/21 04:41 Creatinine 8.4 mg/dL (0.6-1.2) H 09/09/21 04:41 Estimated GFR 6 ml/min 09/09/21 04:41 BUN/Creatinine Ratio 11 % 09/09/21 04:41 Glucose 116 mg/dL (65-100) H 09/09/21 04:41 Lactic Acid 1.40 mmol/L (0.7-2.0) 09/09/21 04:41 Calcium 9.2 mg/dL (8.4-10.2) 09/09/21 04:41 Total Bilirubin 1.60 mg/dL (0.1-1.2) H 09/09/21 04:41 Direct Bilirubin 0.4 mg/dL (0-0.2) H 09/08/21 15:56 Indirect Bilirubin 0.1 mg/dL 09/08/21 15:56 AST 14 units/L (5-40) 09/09/21 04:41 ALT 7 units/L (7-56) 09/09/21 04:41 Alkaline Phosphatase 170 units/L (35-129) H 09/09/21 04:41 Ammonia 19.0 umol/L (25-60) L 09/08/21 15:56 Total Creatine Kinase 77 units/L (30-135) 09/08/21 15:56 Total Protein 7.3 g/dL (6.3-8.2) 09/09/21 04:41 Albumin 2.5 g/dL (3.9-5) L 09/09/21 04:41 Albumin/Globulin Ratio 0.5 % 09/09/21 04:41 Blood Type A POSITIVE 09/08/21 20:40 Antibody Screen Negative 09/08/21 20:40 Crossmatch See Detail 09/08/21 20:40 Microbiology: Microbiology 09/08/21 15:56 Peripheral/Venous Blood Culture - Preliminary Culture in Progress 09/08/21 15:56 Peripheral/Venous Blood Culture - Preliminary Culture in Progress Active Medications - Current Medications Current Medications: Generic Name Dose Route Start Last Admin Trade Name Freq PRN Reason Stop Dose Admin Acetaminophen 650 mg 09/08/21 18:05 Acetaminophen 325 Mg Tab PO Q6H PRN Pain, Mild (1-3) Acetaminophen 650 mg 09/08/21 18:05 Acetaminophen 650 Mg Rect Supp VT Q6H PRN Pain MILD(1-3)/Fever >100.5/PALOMINO Carvedilol 12.5 mg 09/09/21 10:00 Carvedilol 12.5 Mg Tab PO Q12HR [facility] Famotidine 20 mg 09/09/21 10:00 Famotidine 20 Mg/2 Ml Inj IV 09/09/21 22:00 QDAY [facility] Hydromorphone HCl 0.5 mg 09/09/21 10:30 Hydromorphone 0.5 Mg/0.5 Ml Inj IV Q4H PRN Pain , Severe (7-10) Levofloxacin/Dextrose 750 mg in 150 mls @ 100 mls/hr 09/10/21 10:00 Levaquin 750mg/150ml IV Q48HR [facility] Protocol Isosorbide Mononitrate 30 mg 09/09/21 10:00 Isosorbide Mononitrate Er 30 Mg Tab PO QDAY [facility] Nifedipine 30 mg 09/09/21 10:00 Nifedipine Xl 30 Mg Tab PO QDAY SHRUTI Oxycodone/Acetaminophen 1 tab 09/08/21 18:05 Oxycodone /Acetaminophen 5-325mg Tab PO Q6H PRN Pain, Moderate (4-6) Pantoprazole Sodium 20 mg 09/10/21 07:30 Pantoprazole 20 Mg Tab PO QDAC SHRUTI Sodium Chloride 10 ml 09/08/21 22:00 09/08/21 22:18 Sodium Chloride 0.9% 10 Ml Flush Syringe IV 10 ml BID SHRUTI Administration Sodium Chloride 10 ml 09/08/21 18:05 Sodium Chloride 0.9% 10 Ml Flush Syringe IV PRN PRN LINE FLUSH <AMADEO TORIBIO - Last Filed: 09/10/21 07:08> Assessment and Plan Assessment and plan: I saw and evaluated the patient. I agree with the findings and the plan of care as documented in the Nurse Practitioner's~note, with the following corrections and additions. Hospitalist Physical - Constitutional Vitals: Temp Pulse Resp BP Pulse Ox 98.1 F 68 12 138/64 99 09/10/21 06:00 09/10/21 06:00 09/10/21 06:00 09/10/21 06:00 09/10/21 06:00 Results - Labs CBC & Chem 7: 09/10/21 04:31 09/10/21 04:31 Labs: Laboratory Last Values WBC 19.7 K/mm3 (4.5-11.0) H 09/10/21 04:31 RBC 4.06 M/mm3 (3.65-5.03) 09/10/21 04:31 Hgb 10.2 gm/dl (10.1-14.3) 09/10/21 04:31 Hct 32.6 % (30.3-42.9) 09/10/21 04:31 MCV 80 fl (79-97) 09/10/21 04:31 MCH 25 pg (28-32) L 09/10/21 04:31 MCHC 31 % (30-34) 09/10/21 04:31 RDW 24.3 % (13.2-15.2) H 09/10/21 04:31 Plt Count 434 K/mm3 (140-440) 09/10/21 04:31 Add Manual Diff Complete 09/09/21 04:41 Total Counted 100 09/09/21 04:41 Seg Neutrophils % Shoe Repair Supervisor 09/09/21 04:41 Seg Neuts % (Manual) 96.0 % (40.0-70.0) H 09/09/21 04:41 Band Neutrophils % 0 % 09/09/21 04:41 Lymphocytes % (Manual) 3.0 % (13.4-35.0) L 09/09/21 04:41 Reactive Lymphs % (Man) 0 % 09/09/21 04:41 Monocytes % (Manual) 1.0 % (0.0-7.3) 09/09/21 04:41 Eosinophils % (Manual) 0 % (0.0-4.3) 09/09/21 04:41 Basophils % (Manual) 0 % (0.0-1.8) 09/09/21 04:41 Metamyelocytes % 0 % 09/09/21 04:41 Myelocytes % 0 % 09/09/21 04:41 Promyelocytes % 0 % 09/09/21 04:41 Blast Cells % 0 % 09/09/21 04:41 Nucleated RBC % 1.0 % (0.0-0.9) H 09/09/21 04:41 Seg Neutrophils # Man 25.0 K/mm3 (1.8-7.7) H 09/09/21 04:41 Band Neutrophils # 0.0 K/mm3 09/09/21 04:41 Lymphocytes # (Manual) 0.8 K/mm3 (1.2-5.4) L 09/09/21 04:41 Abs React Lymphs (Man) 0.0 K/mm3 09/09/21 04:41 Monocytes # (Manual) 0.3 K/mm3 (0.0-0.8) 09/09/21 04:41 Eosinophils # (Manual) 0.0 K/mm3 (0.0-0.4) 09/09/21 04:41 Basophils # (Manual) 0.0 K/mm3 (0.0-0.1) 09/09/21 04:41 Metamyelocytes # 0.0 K/mm3 09/09/21 04:41 Myelocytes # 0.0 K/mm3 09/09/21 04:41 Promyelocytes # 0.0 K/mm3 09/09/21 04:41 Blast Cells # 0.0 K/mm3 09/09/21 04:41 WBC Morphology Not Reportable 09/09/21 04:41 Hypersegmented Neuts Not Reportable 09/09/21 04:41 Hyposegmented Neuts Not Reportable 09/09/21 04:41 Hypogranular Neuts Not Reportable 09/09/21 04:41 Smudge Cells Not Reportable 09/09/21 04:41 Toxic Granulation Not Reportable 09/09/21 04:41 Toxic Vacuolation Not Reportable 09/09/21 04:41 Dohle Bodies Not Reportable 09/09/21 04:41 Pelger-Huet Anomaly Not Reportable 09/09/21 04:41 Cosme Rods Not Reportable 09/09/21 04:41 Platelet Estimate Consistent w auto 09/09/21 04:41 Clumped Platelets Not Reportable 09/09/21 04:41 Plt Clumps, EDTA Not Reportable 09/09/21 04:41 Large Platelets Not Reportable 09/09/21 04:41 Giant Platelets Not Reportable 09/09/21 04:41 Platelet Satelliting Not Reportable 09/09/21 04:41 Plt Morphology Comment Not Reportable 09/09/21 04:41 RBC Morphology Not Reportable 09/09/21 04:41 Dimorphic RBCs Not Reportable 09/09/21 04:41 Polychromasia Not Reportable 09/09/21 04:41 Hypochromasia 2+ 09/09/21 04:41 Poikilocytosis 1+ 09/09/21 04:41 Anisocytosis 2+ 09/09/21 04:41 Microcytosis Not Reportable 09/09/21 04:41 Macrocytosis Not Reportable 09/09/21 04:41 Spherocytes Not Reportable 09/09/21 04:41 Pappenheimer Bodies Not Reportable 09/09/21 04:41 Sickle Cells Not Reportable 09/09/21 04:41 Target Cells Not Reportable 09/09/21 04:41 Tear Drop Cells Not Reportable 09/09/21 04:41 Ovalocytes Rare 09/09/21 04:41 Helmet Cells Not Reportable 09/09/21 04:41 [place] Bodies Not Reportable 09/09/21 04:41 [place] Rings Not Reportable 09/09/21 04:41 Angel[place] Cells Not Reportable 09/09/21 04:41 Bite Cells Not Reportable 09/09/21 04:41 Crenated Cell Not Reportable 09/09/21 04:41 Elliptocytes Few 09/09/21 04:41 Acanthocytes (Spur) Few 09/09/21 04:41 Rouleaux Not Reportable 09/09/21 04:41 Hemoglobin C Crystals Not Reportable 09/09/21 04:41 Schistocytes Not Reportable 09/09/21 04:41 Malaria parasites Not Reportable 09/09/21 04:41 Jozef Bodies Not Reportable 09/09/21 04:41 Hem Pathologist Commnt No 09/09/21 04:41 PT 19.1 Sec. (12.2-14.9) H 09/08/21 15:56 INR 1.42 (0.87-1.13) H 09/08/21 15:56 APTT 37.7 Sec. (24.2-36.6) H 09/08/21 15:56 Sodium 136 mmol/L (137-145) L 09/10/21 04:31 Potassium 4.3 mmol/L (3.6-5.0) D 09/10/21 04:31 Chloride 97.8 mmol/L (98-107) L 09/10/21 04:31 Carbon Dioxide 21 mmol/L (22-30) L 09/10/21 04:31 Anion Gap 22 mmol/L 09/10/21 04:31 BUN 54 mg/dL (7-17) H 09/10/21 04:31 Creatinine 5.6 mg/dL (0.6-1.2) H 09/10/21 04:31 Estimated GFR 10 ml/min 09/10/21 04:31 BUN/Creatinine Ratio 10 % 09/10/21 04:31 Glucose 92 mg/dL (65-100) 09/10/21 04:31 Lactic Acid 1.40 mmol/L (0.7-2.0) 09/09/21 04:41 Calcium 9.0 mg/dL (8.4-10.2) 09/10/21 04:31 Total Bilirubin 1.60 mg/dL (0.1-1.2) H 09/09/21 04:41 Direct Bilirubin 0.4 mg/dL (0-0.2) H 09/08/21 15:56 Indirect Bilirubin 0.1 mg/dL 09/08/21 15:56 AST 14 units/L (5-40) 09/09/21 04:41 ALT 7 units/L (7-56) 09/09/21 04:41 Alkaline Phosphatase 170 units/L (35-129) H 09/09/21 04:41 Ammonia 19.0 umol/L (25-60) L 09/08/21 15:56 Total Creatine Kinase 77 units/L (30-135) 09/08/21 15:56 Total Protein 7.3 g/dL (6.3-8.2) 09/09/21 04:41 Albumin 2.5 g/dL (3.9-5) L 09/09/21 04:41 Albumin/Globulin Ratio 0.5 % 09/09/21 04:41 Blood Type A POSITIVE 09/08/21 20:40 Antibody Screen Negative 09/08/21 20:40 Crossmatch See Detail 09/08/21 20:40 Microbiology: Microbiology 09/08/21 15:56 Peripheral/Venous Blood Culture - Preliminary NO GROWTH AFTER 24 HOURS 09/08/21 15:56 Peripheral/Venous Blood Culture - Preliminary NO GROWTH AFTER 24 HOURS Active Medications - Current Medications Current Medications: Generic Name Dose Route Start Last Admin Trade Name Freq PRN Reason Stop Dose Admin Acetaminophen 650 mg 09/08/21 18:05 Acetaminophen 325 Mg Tab PO Q6H PRN Pain, Mild (1-3) Acetaminophen 650 mg 09/08/21 18:05 Acetaminophen 650 Mg Rect Supp VT Q6H PRN Pain MILD(1-3)/Fever >100.5/PALOMINO Carvedilol 12.5 mg 09/09/21 10:00 09/09/21 21:58 Carvedilol 12.5 Mg Tab PO Not Given Q12HR SHRUTI Dextrose 50 ml 09/09/21 18:00 Dextrose 50% In Water (25gm) 50 Ml Syringe IV Q30MIN PRN Hypoglycemia Protocol Hydromorphone HCl 0.5 mg 09/09/21 10:30 09/10/21 02:00 Hydromorphone 0.5 Mg/0.5 Ml Inj IV 0.5 mg Q4H PRN Administration Pain , Severe (7-10) Levofloxacin/Dextrose 500 mg in 100 mls @ 66.667 mls/hr 09/11/21 10:00 Levaquin 500mg/100ml IV Q48HR SHRUTI Protocol Sodium Chloride 100 mls @ 999 mls/hr 09/09/21 10:30 Nacl 0.9% IV KEV PRN Hypotension Dextrose/Sodium Chloride 1,000 mls @ 75 mls/hr 09/09/21 18:00 09/10/21 06:17 D5/0.45ns IV 75 mls/hr DIRECT SHRUTI Administration Insulin Human Lispro 0 unit 09/09/21 22:00 09/09/21 21:59 Insulin Lispro 100 Unit/Ml SUB-Q Not Given ACHS SHRUTI Protocol Isosorbide Mononitrate 30 mg 09/09/21 10:00 09/09/21 10:38 Isosorbide Mononitrate Er 30 Mg Tab PO 30 mg QDAY SHRUTI Administration Nifedipine 30 mg 09/09/21 10:00 09/09/21 10:39 Nifedipine Xl 30 Mg Tab PO 30 mg QDAY SHRUTI Administration Oxycodone/Acetaminophen 1 tab 09/08/21 18:05 09/09/21 18:57 Oxycodone /Acetaminophen 5-325mg Tab PO 1 tab Q6H PRN Administration Pain, Moderate (4-6) Pantoprazole Sodium 20 mg 09/10/21 07:30 Pantoprazole 20 Mg Tab PO QDAC SHRUTI Sodium Chloride 10 ml 09/08/21 22:00 09/09/21 21:59 Sodium Chloride 0.9% 10 Ml Flush Syringe IV 10 ml BID SHRUTI Administration Sodium Chloride 10 ml 09/08/21 18:05 Sodium Chloride 0.9% 10 Ml Flush Syringe IV PRN PRN LINE FLUSH Nutrition/Malnutrition Assess - Dietary Evaluation Nutrition/Malnutrition Findings: Nutrition Notes Start: 09/09/21 17:01 Freq: Status: Active Protocol: Document 09/09/21 17:01 ASHLI (Rec: 09/09/21 17:33 ASHLI [id number]) Nutrition Notes Need for Assessment generated from: 2nd pressman Initial or Follow up Assessment Current Diagnosis CKD (stage V CKD),Diabetes, Sepsis,Hypertension Other Pertinent Diagnosis ESRD+HD, PVD, R-Foot Ischemia, L-LE Gangrene, Anasarca, Leukocytosis... Current Diet Cardiac/Consistent Carbohydrates Diet (since B ), NPO (09/10 00:01). Labs/Tests 09/09: Na 133, K 5.4, Cl 94.7, CO2 18, BUN 96, Crea 8.4, Glu 116. Pertinent Medications 09/09: Nutritionally unremarkable. 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 Weight Status Obese Subjective/Other Information RD consult for skin risk assessment. No reports available on Pt's PO intake of meals at the time , will assess at F/U. Pt will be on NPO after midnight for surgery. Pt is on Room Air, O2 saturation @ 97%, according to Physical Assessment History notes. Pt presents several skin problems agravated from PVD: R -Heel ischemia/cellulitis, L- Foot gangrene, L-Hand index digit gangrene, according to Admission Documents and Physical Assessment History notes. Procedure planned for 09/10: L -LE BKA, according to Consultation note. Percent of energy/protein needs met: Prescribed Cardiac/Consistent Carbohydrates Diet provides for energy/protein needs (1, 977 Kcal/86 g) during LOS. Burn Absent Trauma Absent GI Symptoms None Food Allergy No Skin Integrity/Comment R-Heel ischemia, L-Foot gangrene... 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 Etiology PVD. As Evidenced by Signs and Symptoms Pt presents several skin problems agravated from PVD: R -Heel ischemia/cellulitis, L- Foot gangrene, L-Hand index digit gangrene, according to Admission Documents and Physical Assessment History notes. Is patient on ventilator? No Is Patient Ambulatory and/or Out of Bed No REE-([facility]-confined to bed) 1487.112 Kcal/Kg value to use for calculation 15 Approximate Energy Requirements Using 1086 kcal/Kg Calculation Used for Recommendations Kcal/kg Additional Notes Protein: 1.5-2 g/Kg AdjBW; 89- 118 g/day. Fluids: 1 ml/Kcal, or as per MD. Nutrition Intervention Change Diet Order: When pertinent resume Cardiac/ Consistent Carbohydrates Diet. Goal #1 Adjust the dietary intervention to better serve Pt's needs and clinical conditions during LOS. Follow-Up By: 09/16/21 Additional Comments When pertinent continue monitoring food tolerance, %PO intake of meals, and BM.
[2021-09-09] MEDS ORDERED: SODIUM CHLORIDE 0.9% 100 ML IV PRN (10:30)
[2021-09-09] MEDS: oxyCODONE /ACETAMINOPHEN 5-325MG TAB PO PRN ×2 (10:37→18:57)
[2021-09-09] MEDS: carvediloL 12.5 MG TAB PO SCH ×2 (10:38→21:58)
[2021-09-09] MEDS: NIFEdipine XL 30 MG TAB PO SCH (10:39)
--- NOTE | 2021-09-09 11:17 | Consultation ---
History of Present Illness - Reason for Consult Consult date: 09/09/21 - History of Present Illness 56-year-old female past medical history ESRD on HD, diabetes, hypertension, PVD with chronic right lower extremity ischemia gangrene presented to hospital with altered mental status decreased oral intake. She also missed her most recent dialysis session. She was reported subjective fevers at home, now considered to have cellulitis. She was recently admitted in early August, and is admitted approximately once a month. Afebrile, white count 26. Blood cultures no growth so far. Currently on vancomycin, levofloxacin Imaging personally reviewed: CT abdomen pelvis: Volume overload including anasarca. No acute infectious abnormality. Past History Past Medical History: diabetes, ESRD, hypertension, PVD Past Surgical History: Other (Dialysis access) Social history: Family history: hypertension Medications and Allergies Allergies Allergy/AdvReac Type Severity Reaction Status Date / Time No Known Allergies Allergy Verified 09/08/21 14:34 Home Medications Medication Instructions Recorded Confirmed Last Taken Type Acetaminophen [Acetaminophen TAB] 650 mg PO Q4H PRN tablet 04/01/21 08/28/21 07/06/21 Rx Pentoxifylline 400 mg PO DAILY #90 06/24/21 08/28/21 07/06/21 Rx Apixaban [Eliquis] 2.5 mg PO BID #180 07/07/21 08/28/21 Unknown Rx ALPRAZolam [Xanax TAB] 0.25 mg PO Q8H PRN #12 tablet 08/15/21 08/28/21 Unknown Rx Cinacalcet [Sensipar] 30 mg PO QDAY 30 Days #30 tablet 08/15/21 08/28/21 Unknown Rx Clopidogrel [Plavix] 75 mg PO QDAY #90 tablet 08/15/21 08/28/21 Unknown Rx Furosemide [Lasix TAB] 20 mg PO QDAY #30 tablet 08/15/21 08/28/21 Unknown Rx Hydralazine HCl 50 mg PO TID 30 Days #90 tab 08/15/21 08/28/21 Unknown Rx ISOSORBIDE MONOnitrate [Imdur ER] 30 mg PO QDAY #30 tablet 08/15/21 08/28/21 Unknown Rx NIFEdipine XL [Procardia Xl] 30 mg PO Q12HR #60 tablet 08/15/21 08/28/21 Unknown Rx Pantoprazole [Protonix TAB] 20 mg PO QDAC tablet.dr 08/15/21 08/28/21 Unknown Rx Valsartan [Diovan] 80 mg PO QDAY 30 Days #30 tab 08/15/21 08/28/21 Unknown Rx Venlafaxine [Effexor 37.5mg tab] 37.5 mg PO BID #30 tablet 08/15/21 08/28/21 Unknown Rx carvediloL [Coreg] 25 mg PO Q12HR #60 tablet 08/15/21 08/28/21 Unknown Rx sevelamer HCL [Sevelamer HCl] 800 mg PO TID 30 Days #90 tab 08/15/21 08/28/21 Unknown Rx diphenhydrAMINE [Benadryl CAP] 25 mg PO Q6H PRN 7 Days #28 capsule 08/29/21 Unknown Rx oxyCODONE /ACETAMINOPHEN [Percocet 1 tab PO Q4H PRN 5 Days #30 tablet 08/29/21 Unknown Rx 5/325 mg] Active Meds: Active Medications Acetaminophen (Acetaminophen 325 Mg Tab) 650 mg PO Q6H PRN PRN Reason: Pain, Mild (1-3) Acetaminophen (Acetaminophen 650 Mg Rect Supp) 650 mg ME Q6H PRN PRN Reason: Pain MILD(1-3)/Fever >100.5/PALOMINO Carvedilol (Carvedilol 12.5 Mg Tab) 12.5 mg PO Q12HR [facility] Last Admin: 09/09/21 10:38 Dose: 12.5 mg Famotidine (Famotidine 20 Mg/2 Ml Inj) 20 mg IV QDAY SHRUTI Stop: 09/09/21 22:00 Last Admin: 09/09/21 10:39 Dose: 20 mg Hydromorphone HCl (Hydromorphone 0.5 Mg/0.5 Ml Inj) 0.5 mg IV Q4H PRN PRN Reason: Pain , Severe (7-10) Levofloxacin/Dextrose (Levaquin 500mg/100ml) 500 mg in 100 mls @ 66.667 mls/hr IV Q48HR [facility]; Protocol Sodium Chloride (Nacl 0.9%) 100 mls @ 999 mls/hr IV KEV PRN PRN Reason: Hypotension Isosorbide Mononitrate (Isosorbide Mononitrate Er 30 Mg Tab) 30 mg PO QDAY [facility] Last Admin: 09/09/21 10:38 Dose: 30 mg Nifedipine (Nifedipine Xl 30 Mg Tab) 30 mg PO QDAY [facility] Last Admin: 09/09/21 10:39 Dose: 30 mg Oxycodone/Acetaminophen (Oxycodone /Acetaminophen 5-325mg Tab) 1 tab PO Q6H PRN PRN Reason: Pain, Moderate (4-6) Last Admin: 09/09/21 10:37 Dose: 1 tab Pantoprazole Sodium (Pantoprazole 20 Mg Tab) 20 mg PO QDAC [facility] Sodium Chloride (Sodium Chloride 0.9% 10 Ml Flush Syringe) 10 ml IV BID [facility] Last Admin: 09/09/21 10:38 Dose: 10 ml Sodium Chloride (Sodium Chloride 0.9% 10 Ml Flush Syringe) 10 ml IV PRN PRN PRN Reason: LINE FLUSH Review of Systems ROS unobtainable: due to mental status Physical Examination - Physical Exam Narrative exam: Physical Exam: Constitutional: Alert, cooperative. No acute distress Head, Ears, Nose: Normocephalic, atraumatic. External ears, nose normal Eyes: Conjunctivae/corneas clear. No icterus. No ptosis. Neck: Supple, no meningeal signs Oral: dentition fair, no thrush Cardiovascular: S1, S2 normal. Respiratory: Good air entry, clear to auscultation bilaterally GI: Soft, non-tender; bowel sounds normal. No peritoneal signs. Musculoskeletal: RLE gangrene Skin: No rash or abscess Hem/Lymphatic: No palpable cervical or supraclavicular nodes. No lymphangitis Psych: Mood ok. Affect normal Neurological: Awake, alert, oriented. No gross abnormality - Constitutional Vitals: Vital Signs Temp Pulse Resp BP Pulse Ox 97.9 F 76 18 149/68 98 09/09/21 02:54 09/09/21 10:38 09/09/21 05:45 09/09/21 10:38 09/09/21 02:45 Temperature -Last 24 Hours Temperature 97.9 F Temperature 97.9 F Temperature 97.9 F Temperature 98.0 F Temperature 98.0 F Temperature 97.9 F Temperature 98.0 F Temperature 98.0 F Temperature 97.5 F Temperature 97.9 F Temperature 97.9 F Temperature 98.2 F Temperature 98.2 F Temperature 99.6 F Temperature 99.5 F Results - Labs CBC & Chem 7: 09/09/21 04:41 09/09/21 04:41 Labs: Abnormal lab results 09/08/21 09/08/21 09/08/21 Range/Units 15:56 15:56 15:56 WBC 23.5 H (4.5-11.0) K/mm3 RBC 2.58 L (3.65-5.03) M/mm3 Hgb 6.1 L (10.1-14.3) gm/dl Hct 19.6 L* (30.3-42.9) % MCV 76 L (79-97) fl MCH 24 L (28-32) pg RDW 24.9 H (13.2-15.2) % Plt Count 487 H (140-440) K/mm3 Seg Neuts % (Manual) 96.0 H (40.0-70.0) % Lymphocytes % (Manual) 1.0 L (13.4-35.0) % Nucleated RBC % (0.0-0.9) % Seg Neutrophils # Man 22.6 H (1.8-7.7) K/mm3 Lymphocytes # (Manual) 0.2 L (1.2-5.4) K/mm3 PT 19.1 H (12.2-14.9) Sec. INR 1.42 H (0.87-1.13) APTT 37.7 H (24.2-36.6) Sec. Sodium 130 L (137-145) mmol/L Potassium 5.7 H (3.6-5.0) mmol/L Chloride 91.7 L (98-107) mmol/L Carbon Dioxide 19 L (22-30) mmol/L BUN 92 H (7-17) mg/dL Creatinine 8.6 H (0.6-1.2) mg/dL Glucose 147 H (65-100) mg/dL Total Bilirubin (0.1-1.2) mg/dL Direct Bilirubin (0-0.2) mg/dL Alkaline Phosphatase (35-129) units/L Ammonia (25-60) umol/L Albumin (3.9-5) g/dL Crossmatch 09/08/21 09/08/21 09/08/21 Range/Units 15:56 15:56 20:40 WBC (4.5-11.0) K/mm3 RBC (3.65-5.03) M/mm3 Hgb (10.1-14.3) gm/dl Hct (30.3-42.9) % MCV (79-97) fl MCH (28-32) pg RDW (13.2-15.2) % Plt Count (140-440) K/mm3 Seg Neuts % (Manual) (40.0-70.0) % Lymphocytes % (Manual) (13.4-35.0) % Nucleated RBC % (0.0-0.9) % Seg Neutrophils # Man (1.8-7.7) K/mm3 Lymphocytes # (Manual) (1.2-5.4) K/mm3 PT (12.2-14.9) Sec. INR (0.87-1.13) APTT (24.2-36.6) Sec. Sodium (137-145) mmol/L Potassium (3.6-5.0) mmol/L Chloride (98-107) mmol/L Carbon Dioxide (22-30) mmol/L BUN (7-17) mg/dL Creatinine (0.6-1.2) mg/dL Glucose (65-100) mg/dL Total Bilirubin (0.1-1.2) mg/dL Direct Bilirubin 0.4 H (0-0.2) mg/dL Alkaline Phosphatase 180 H (35-129) units/L Ammonia 19.0 L (25-60) umol/L Albumin 3.0 L (3.9-5) g/dL Crossmatch See Detail 09/09/21 09/09/21 Range/Units 04:41 04:41 WBC 26.0 H (4.5-11.0) K/mm3 RBC (3.65-5.03) M/mm3 Hgb (10.1-14.3) gm/dl Hct (30.3-42.9) % MCV (79-97) fl MCH 26 L (28-32) pg RDW 24.8 H (13.2-15.2) % Plt Count 496 H (140-440) K/mm3 Seg Neuts % (Manual) 96.0 H (40.0-70.0) % Lymphocytes % (Manual) 3.0 L (13.4-35.0) % Nucleated RBC % 1.0 H (0.0-0.9) % Seg Neutrophils # Man 25.0 H (1.8-7.7) K/mm3 Lymphocytes # (Manual) 0.8 L (1.2-5.4) K/mm3 PT (12.2-14.9) Sec. INR (0.87-1.13) APTT (24.2-36.6) Sec. Sodium 133 L (137-145) mmol/L Potassium 5.4 H (3.6-5.0) mmol/L Chloride 94.7 L (98-107) mmol/L Carbon Dioxide 18 L (22-30) mmol/L BUN 96 H (7-17) mg/dL Creatinine 8.4 H (0.6-1.2) mg/dL Glucose 116 H (65-100) mg/dL Total Bilirubin 1.60 H (0.1-1.2) mg/dL Direct Bilirubin (0-0.2) mg/dL Alkaline Phosphatase 170 H (35-129) units/L Ammonia (25-60) umol/L Albumin 2.5 L (3.9-5) g/dL Crossmatch Assessment and Plan Cultures: Blood culture no growth so far A/P: 56-year-old female past medical history ESRD on HD, diabetes, hypertension, PVD with chronic right lower extremity ischemia gangrene #Leukocytosis: has significant neutrophilic shift; unclear etiology. Possible superinfection to her chronic ischemic gangrene. #PVD with chronic gangrene: vascular had previously recommend amputation which she refused. #ESRD on HD: renally dose medications #Anasarca: with missed HD recently Recs: -Vancomycin goal trough 10-20 -Levaquin renally dosed -Follow up blood cultures Thank you for the consult, we will continue to follow. Anders Short MD [facility] ([facility] O: [phone] F: [phone]
[2021-09-09] MEDS ORDERED: VANCOMYCIN PHARMACY TO DOSE IV SCH (12:00)
--- NOTE | 2021-09-09 12:37 | Consultation ---
History of Present Illness - Reason for Consult Consult date: 09/09/21 end stage renal disease Requesting physician: NINI CASTRO - History of Present Illness This is a 56 yo F with past medical history of ESRD on HD( on T,R,Sa), DM, HTN, Deaf/Mute, Noncompliance, PVD S/P Revascularizaion, RLE Ischemia complicated by Rest Pain but patient refused Amputation as recommended by Vascular Surgery team, who now presents to ER with altered mental status, increased confusion, diminished oral intake. As per pt's sister pt also missed her previous dialysis session. Patient found to have sepsis suspected secondary to cellulitis, and was admitted for IV ABX treatment and further ID evaluation. Labs showed elevated WBC > 26K, significant anemia with Hb as low as 6.1, elevated BUN/Cr at 92/8.6 along with hyperkalemia/hyponatremia. Renal consult is requested for management of ESRD/HD. Past History Past Medical History: diabetes, ESRD, hypertension, PVD Past Surgical History: Other (Dialysis access) Social history: Family history: hypertension Medications and Allergies Allergies Allergy/AdvReac Type Severity Reaction Status Date / Time No Known Allergies Allergy Verified 09/08/21 14:34 Home Medications Medication Instructions Recorded Confirmed Last Taken Type Acetaminophen [Acetaminophen TAB] 650 mg PO Q4H PRN tablet 04/01/21 08/28/21 07/06/21 Rx Pentoxifylline 400 mg PO DAILY #90 06/24/21 08/28/21 07/06/21 Rx Apixaban [Eliquis] 2.5 mg PO BID #180 07/07/21 08/28/21 Unknown Rx ALPRAZolam [Xanax TAB] 0.25 mg PO Q8H PRN #12 tablet 08/15/21 08/28/21 Unknown Rx Cinacalcet [Sensipar] 30 mg PO QDAY 30 Days #30 tablet 08/15/21 08/28/21 Unknown Rx Clopidogrel [Plavix] 75 mg PO QDAY #90 tablet 08/15/21 08/28/21 Unknown Rx Furosemide [Lasix TAB] 20 mg PO QDAY #30 tablet 08/15/21 08/28/21 Unknown Rx Hydralazine HCl 50 mg PO TID 30 Days #90 tab 08/15/21 08/28/21 Unknown Rx ISOSORBIDE MONOnitrate [Imdur ER] 30 mg PO QDAY #30 tablet 08/15/21 08/28/21 Unknown Rx NIFEdipine XL [Procardia Xl] 30 mg PO Q12HR #60 tablet 08/15/21 08/28/21 Unknown Rx Pantoprazole [Protonix TAB] 20 mg PO QDAC tablet. 08/15/21 08/28/21 Unknown Rx Valsartan [Diovan] 80 mg PO QDAY 30 Days #30 tab 08/15/21 08/28/21 Unknown Rx Venlafaxine [Effexor 37.5mg tab] 37.5 mg PO BID #30 tablet 08/15/21 08/28/21 Unknown Rx carvediloL [Coreg] 25 mg PO Q12HR #60 tablet 08/15/21 08/28/21 Unknown Rx sevelamer HCL [Sevelamer HCl] 800 mg PO TID 30 Days #90 tab 08/15/21 08/28/21 Unknown Rx diphenhydrAMINE [Benadryl CAP] 25 mg PO Q6H PRN 7 Days #28 capsule 08/29/21 Unknown Rx oxyCODONE /ACETAMINOPHEN [Percocet 1 tab PO Q4H PRN 5 Days #30 tablet 08/29/21 Unknown Rx 5/325 mg] Active Meds: Active Medications Acetaminophen (Acetaminophen 325 Mg Tab) 650 mg PO Q6H PRN PRN Reason: Pain, Mild (1-3) Acetaminophen (Acetaminophen 650 Mg Rect Supp) 650 mg NM Q6H PRN PRN Reason: Pain MILD(1-3)/Fever >100.5/PALOMINO Carvedilol (Carvedilol 12.5 Mg Tab) 12.5 mg PO Q12HR [facility] Last Admin: 09/09/21 10:38 Dose: 12.5 mg Famotidine (Famotidine 20 Mg/2 Ml Inj) 20 mg IV QDAY [facility] Stop: 09/09/21 22:00 Last Admin: 09/09/21 10:39 Dose: 20 mg Hydromorphone HCl (Hydromorphone 0.5 Mg/0.5 Ml Inj) 0.5 mg IV Q4H PRN PRN Reason: Pain , Severe (7-10) Levofloxacin/Dextrose (Levaquin 500mg/100ml) 500 mg in 100 mls @ 66.667 mls/hr IV Q48HR [facility]; Protocol Sodium Chloride (Nacl 0.9%) 100 mls @ 999 mls/hr IV KEV PRN PRN Reason: Hypotension Levofloxacin/Dextrose (Levaquin 750mg/150ml) 750 mg in 150 mls @ 100 mls/hr IV ONCE@1300 [facility] Stop: 09/09/21 16:00 Vancomycin HCl 500 mg/ Sodium (Chloride) 110 mls @ 66.667 mls/hr IV ONCE@1400 [facility] Stop: 09/09/21 18:00 Isosorbide Mononitrate (Isosorbide Mononitrate Er 30 Mg Tab) 30 mg PO QDAY [facility] Last Admin: 09/09/21 10:38 Dose: 30 mg Nifedipine (Nifedipine Xl 30 Mg Tab) 30 mg PO QDAY [facility] Last Admin: 09/09/21 10:39 Dose: 30 mg Oxycodone/Acetaminophen (Oxycodone /Acetaminophen 5-325mg Tab) 1 tab PO Q6H PRN PRN Reason: Pain, Moderate (4-6) Last Admin: 09/09/21 10:37 Dose: 1 tab Pantoprazole Sodium (Pantoprazole 20 Mg Tab) 20 mg PO QDAC [facility] Sodium Chloride (Sodium Chloride 0.9% 10 Ml Flush Syringe) 10 ml IV BID [facility] Last Admin: 09/09/21 10:38 Dose: 10 ml Sodium Chloride (Sodium Chloride 0.9% 10 Ml Flush Syringe) 10 ml IV PRN PRN PRN Reason: LINE FLUSH Review of Systems ROS unobtainable: due to mental status Exam - Vital Signs Vital signs: Vital Signs Temp Pulse Resp BP Pulse Ox 99.5 F 83 13 142/67 97 09/08/21 15:16 09/08/21 15:16 09/08/21 15:16 09/08/21 15:16 09/08/21 15:16 - General Appearance General appearance: well-developed, appears stated age EENT: ATNC, PERRL, mucous membranes moist Neck: Present: neck supple Respiratory: Clear to Ascultation Heart: regular, S1S2 Gastrointestinal: Present: normoactive bowel sounds Integumentary: no rash Neurologic: confused, disoriented Results - Lab Results 09/09/21 04:41 09/09/21 04:41 Most recent lab results Calcium 9.2 mg/dL (8.4-10.2) 09/09/21 04:41 Assessment and Plan - Patient Problems (1) ESRD needing dialysis Current Visit: Yes Status: Chronic Plan to address problem: arranged HD on TTS schedule for correction of hyperkalemia, solute clearance and volume control (2) Sepsis Current Visit: Yes Status: Acute Plan to address problem: on sepsis protocol, cont empiric ABXs with IV vanco, zosyn, levaquin. please ensure meds are dosed for HD. Possible superinfection to her chronic ischemic gangrene, follow ID/vascular surgery recommendations (3) Hyperkalemia Current Visit: Yes Status: Acute (4) Acute on chronic anemia Current Visit: Yes Status: Acute Plan to address problem: s/p 2PRBC transfusion, target Hb > 7. 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 disease or end stage renal disease Current Visit: No Status: Acute Plan to address problem: monitor BP on current meds (6) Type 2 diabetes mellitus with diabetic chronic kidney disease Current Visit: No Status: Acute Plan to address problem: diabetes management as per primary attending (7) Peripheral vascular disease Current Visit: Yes Status: Acute Plan to address problem: vascular surgery consulted
[2021-09-09] MEDS ORDERED: VANCOMYCIN 500 MG in SODIUM CHLORIDE 0.9% 100 ML IV SCH (14:00)
--- NOTE | 2021-09-09 15:59 | Consultation ---
History of Present Illness - Reason for Consult Consult date: 09/09/21 LLE ulcer Requesting physician: PACHECO DAVILA - History of Present Illness 56 year old female with ESRD on HD(T,R,Sa), DM, HTN, Deaf/Mute, Noncompliance, PVD S/P Revascularizaion, and chronic Extremity gangrene. Patient is deaf and mute and unable to provide detailed history. Patient history provided by sister who was made available by telephone for interview. As per sister the patient has experienced increased confusion, diminished oral intake and as a result the patient missed her previous dialysis session. EMS was notified and upon arrival the patient was found to be in distress and subsequent transported to [facility] for further care and evaluation of the aforementioned symptoms. The patient was seen and evaluated in the emergency department. All lab and imaging studies reviewed. Patient found to have sepsis suspected secondary to cellulitis, end-stage renal disease, metabolic acidosis, hyperkalemia. Nephrology team consulted. Patient sister acknowledges subjective fever but denies chills, chest pain, palpitation, productive cough, skin rash, recent contact, known exposure to COVID-19. Prior admission on 08/27/2021 reviewed. All medication listed at time of admission has been reconciled. Advanced care planning conducted in ED. Vascular consulted for evaluation. The patient was brought to the hospital because her boyfriend found that she was confused at home. She is currently on no pressors and hemodynamically stable. She is sleepy. She has gangrene of the left leg. She is scheduled for amputation of the left lower extremity on 09/17, but given her admission to the hospital this will be performed earlier. She continues to have gangrene of her left second digit and fifth digit. She continues to be noncompliant with dialysis. Past History Past Medical History: diabetes, ESRD, hypertension, PVD Past Surgical History: Other (Dialysis access) Social history: Family history: hypertension Medications and Allergies Allergies Allergy/AdvReac Type Severity Reaction Status Date / Time No Known Allergies Allergy Verified 09/08/21 14:34 Home Medications Medication Instructions Recorded Confirmed Last Taken Type Acetaminophen [Acetaminophen TAB] 650 mg PO Q4H PRN tablet 04/01/21 08/28/21 07/06/21 Rx Pentoxifylline 400 mg PO DAILY #90 06/24/21 08/28/21 07/06/21 Rx Apixaban [Eliquis] 2.5 mg PO BID #180 07/07/21 08/28/21 Unknown Rx ALPRAZolam [Xanax TAB] 0.25 mg PO Q8H PRN #12 tablet 08/15/21 08/28/21 Unknown Rx Cinacalcet [Sensipar] 30 mg PO QDAY 30 Days #30 tablet 08/15/21 08/28/21 Unknown Rx Clopidogrel [Plavix] 75 mg PO QDAY #90 tablet 08/15/21 08/28/21 Unknown Rx Furosemide [Lasix TAB] 20 mg PO QDAY #30 tablet 08/15/21 08/28/21 Unknown Rx Hydralazine HCl 50 mg PO TID 30 Days #90 tab 08/15/21 08/28/21 Unknown Rx ISOSORBIDE MONOnitrate [Imdur ER] 30 mg PO QDAY #30 tablet 08/15/21 08/28/21 Unknown Rx NIFEdipine XL [Procardia Xl] 30 mg PO Q12HR #60 tablet 08/15/21 08/28/21 Unknown Rx Pantoprazole [Protonix TAB] 20 mg PO QDAC tablet. 08/15/21 08/28/21 Unknown Rx Valsartan [Diovan] 80 mg PO QDAY 30 Days #30 tab 08/15/21 08/28/21 Unknown Rx Venlafaxine [Effexor 37.5mg tab] 37.5 mg PO BID #30 tablet 08/15/21 08/28/21 Unknown Rx carvediloL [Coreg] 25 mg PO Q12HR #60 tablet 08/15/21 08/28/21 Unknown Rx sevelamer HCL [Sevelamer HCl] 800 mg PO TID 30 Days #90 tab 08/15/21 08/28/21 Unknown Rx diphenhydrAMINE [Benadryl CAP] 25 mg PO Q6H PRN 7 Days #28 capsule 08/29/21 Unknown Rx oxyCODONE /ACETAMINOPHEN [Percocet 1 tab PO Q4H PRN 5 Days #30 tablet 08/29/21 Unknown Rx 5/325 mg] Active Meds: Active Medications Acetaminophen (Acetaminophen 325 Mg Tab) 650 mg PO Q6H PRN PRN Reason: Pain, Mild (1-3) Acetaminophen (Acetaminophen 650 Mg Rect Supp) 650 mg MN Q6H PRN PRN Reason: Pain MILD(1-3)/Fever >100.5/PALOMINO Carvedilol (Carvedilol 12.5 Mg Tab) 12.5 mg PO Q12HR [facility] Last Admin: 09/09/21 10:38 Dose: 12.5 mg Famotidine (Famotidine 20 Mg/2 Ml Inj) 20 mg IV QDAY [facility] Stop: 09/09/21 22:00 Last Admin: 09/09/21 10:39 Dose: 20 mg Hydromorphone HCl (Hydromorphone 0.5 Mg/0.5 Ml Inj) 0.5 mg IV Q4H PRN PRN Reason: Pain , Severe (7-10) Last Admin: 09/09/21 13:51 Dose: 0.5 mg Levofloxacin/Dextrose (Levaquin 500mg/100ml) 500 mg in 100 mls @ 66.667 mls/hr IV Q48HR [facility]; Protocol Sodium Chloride (Nacl 0.9%) 100 mls @ 999 mls/hr IV KEV PRN PRN Reason: Hypotension Levofloxacin/Dextrose (Levaquin 750mg/150ml) 750 mg in 150 mls @ 100 mls/hr IV ONCE@1300 [facility] Stop: 09/09/21 16:00 Last Admin: 09/09/21 13:52 Dose: Not Given Vancomycin HCl 500 mg/ Sodium (Chloride) 110 mls @ 66.667 mls/hr IV ONCE@1400 [facility] Stop: 09/09/21 18:00 Last Admin: 09/09/21 15:47 Dose: 66.667 mls/hr Isosorbide Mononitrate (Isosorbide Mononitrate Er 30 Mg Tab) 30 mg PO QDAY [facility] Last Admin: 09/09/21 10:38 Dose: 30 mg Nifedipine (Nifedipine Xl 30 Mg Tab) 30 mg PO QDAY [facility] Last Admin: 09/09/21 10:39 Dose: 30 mg Oxycodone/Acetaminophen (Oxycodone /Acetaminophen 5-325mg Tab) 1 tab PO Q6H PRN PRN Reason: Pain, Moderate (4-6) Last Admin: 09/09/21 10:37 Dose: 1 tab Pantoprazole Sodium (Pantoprazole 20 Mg Tab) 20 mg PO QDAC [facility] Sodium Chloride (Sodium Chloride 0.9% 10 Ml Flush Syringe) 10 ml IV BID SHRUTI Last Admin: 09/09/21 10:38 Dose: 10 ml Sodium Chloride (Sodium Chloride 0.9% 10 Ml Flush Syringe) 10 ml IV PRN PRN PRN Reason: LINE FLUSH Review of Systems All systems: negative (see HPI) Exam - Constitutional Vitals: Temp Pulse Resp BP Pulse Ox 97.9 F 72 18 149/68 98 09/09/21 02:54 09/09/21 14:00 09/09/21 05:45 09/09/21 10:38 09/09/21 02:45 General appearance: Present: other (Sleepy) - EENT Eyes: Present: EOM intact ENT: hearing intact - Respiratory Respiratory effort: normal - Extremities Extremities: abnormal (Gangrene of the left second digit involving the middle phalanx, and tip of the left fifth digit. Gangrene of the left foot which is unsalvageable.) - Abdominal General gastrointestinal: Present: soft, non-tender - Psychiatric Psychiatric: cooperative, other (Sleepy) Results - Labs CBC & Chem 7: 09/09/21 04:41 09/09/21 04:41 Labs: Abnormal lab results 09/08/21 09/08/21 09/08/21 Range/Units 15:56 15:56 15:56 WBC 23.5 H (4.5-11.0) K/mm3 RBC 2.58 L (3.65-5.03) M/mm3 Hgb 6.1 L (10.1-14.3) gm/dl Hct 19.6 L* (30.3-42.9) % MCV 76 L (79-97) fl MCH 24 L (28-32) pg RDW 24.9 H (13.2-15.2) % Plt Count 487 H (140-440) K/mm3 Seg Neuts % (Manual) 96.0 H (40.0-70.0) % Lymphocytes % (Manual) 1.0 L (13.4-35.0) % Nucleated RBC % (0.0-0.9) % Seg Neutrophils # Man 22.6 H (1.8-7.7) K/mm3 Lymphocytes # (Manual) 0.2 L (1.2-5.4) K/mm3 PT 19.1 H (12.2-14.9) Sec. INR 1.42 H (0.87-1.13) APTT 37.7 H (24.2-36.6) Sec. Sodium 130 L (137-145) mmol/L Potassium 5.7 H (3.6-5.0) mmol/L Chloride 91.7 L (98-107) mmol/L Carbon Dioxide 19 L (22-30) mmol/L BUN 92 H (7-17) mg/dL Creatinine 8.6 H (0.6-1.2) mg/dL Glucose 147 H (65-100) mg/dL Total Bilirubin (0.1-1.2) mg/dL Direct Bilirubin (0-0.2) mg/dL Alkaline Phosphatase (35-129) units/L Ammonia (25-60) umol/L Albumin (3.9-5) g/dL Crossmatch 09/08/21 09/08/21 09/08/21 Range/Units 15:56 15:56 20:40 WBC (4.5-11.0) K/mm3 RBC (3.65-5.03) M/mm3 Hgb (10.1-14.3) gm/dl Hct (30.3-42.9) % MCV (79-97) fl MCH (28-32) pg RDW (13.2-15.2) % Plt Count (140-440) K/mm3 Seg Neuts % (Manual) (40.0-70.0) % Lymphocytes % (Manual) (13.4-35.0) % Nucleated RBC % (0.0-0.9) % Seg Neutrophils # Man (1.8-7.7) K/mm3 Lymphocytes # (Manual) (1.2-5.4) K/mm3 PT (12.2-14.9) Sec. INR (0.87-1.13) APTT (24.2-36.6) Sec. Sodium (137-145) mmol/L Potassium (3.6-5.0) mmol/L Chloride (98-107) mmol/L Carbon Dioxide (22-30) mmol/L BUN (7-17) mg/dL Creatinine (0.6-1.2) mg/dL Glucose (65-100) mg/dL Total Bilirubin (0.1-1.2) mg/dL Direct Bilirubin 0.4 H (0-0.2) mg/dL Alkaline Phosphatase 180 H (35-129) units/L Ammonia 19.0 L (25-60) umol/L Albumin 3.0 L (3.9-5) g/dL Crossmatch See Detail 09/09/21 09/09/21 Range/Units 04:41 04:41 WBC 26.0 H (4.5-11.0) K/mm3 RBC (3.65-5.03) M/mm3 Hgb (10.1-14.3) gm/dl Hct (30.3-42.9) % MCV (79-97) fl MCH 26 L (28-32) pg RDW 24.8 H (13.2-15.2) % Plt Count 496 H (140-440) K/mm3 Seg Neuts % (Manual) 96.0 H (40.0-70.0) % Lymphocytes % (Manual) 3.0 L (13.4-35.0) % Nucleated RBC % 1.0 H (0.0-0.9) % Seg Neutrophils # Man 25.0 H (1.8-7.7) K/mm3 Lymphocytes # (Manual) 0.8 L (1.2-5.4) K/mm3 PT (12.2-14.9) Sec. INR (0.87-1.13) APTT (24.2-36.6) Sec. Sodium 133 L (137-145) mmol/L Potassium 5.4 H (3.6-5.0) mmol/L Chloride 94.7 L (98-107) mmol/L Carbon Dioxide 18 L (22-30) mmol/L BUN 96 H (7-17) mg/dL Creatinine 8.4 H (0.6-1.2) mg/dL Glucose 116 H (65-100) mg/dL Total Bilirubin 1.60 H (0.1-1.2) mg/dL Direct Bilirubin (0-0.2) mg/dL Alkaline Phosphatase 170 H (35-129) units/L Ammonia (25-60) umol/L Albumin 2.5 L (3.9-5) g/dL Crossmatch Assessment and Plan 56-year-old female who is noncompliant with dialysis who presents with left lower extremity gangrene, right heel chronic ulceration, and left second digit and fifth digit gangrene. Hemoglobin has increased from 6.1-10.4. May be due to anemia of chronic disease as patient does not go regularly to dialysis so I suspect she does not get Epogen. Noncompliance with dialysis which is further exacerbating the patient's underlying issues. I will order a phosphorus to see if this has improved at all. 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 White blood cell count elevated. Likely secondary to wet gangrene of left lower extremity. Set up for below-knee amputation tomorrow. Had consent sent over from office.
[2021-09-09] MEDS: D5W/0.45% NACL 1,000 ML IV SCH (17:41)
[2021-09-09] MEDS ORDERED: DEXTROSE 50% IN WATER (25GM) 50 ML SYRINGE IV PRN (18:00)
--- NOTE | 2021-09-09 19:08 | Anesthesia Consultation ---
Anesthesia Consult and Med Hx Date of service: 09/10/21 - Airway Anesthetic Teeth Evaluation: Poor ROM Head & Neck: Adequate Mental/Hyoid Distance: Adequate Mallampati Class: Class III Intubation Access Assessment: Possibly Difficult - Pre-Operative Health Status ASA Pre-Surgery Classification: ASA4 Proposed Anesthetic Plan: General - Pulmonary Hx Respiratory Symptoms: No - Cardiovascular System Hx Hypertension: Yes Hx Heart Attack/AMI: No (EF 25-30%) Hx Peripheral Vascular Disease: Yes (chronic LLE gangrene) - Central Nervous System Hx Neuromuscular Disorder: No (deaf/mute) CVA: No - Endocrine Hx End Stage Renal Disease: Yes (HD TTS) Hx Liver Disease: No Hx Non-Insulin Dependent Diabetes: Yes Hx Thyroid Disease: No - Hematic Hx Anemia: Yes - Other Systems Hx Obesity: Yes (BMI 31) - Additional Comments Anesthesia Medical History Comments: Patient confused and unable to provide medical history. Hx obtained from patient's daughter at bedside and sister over the phone. Anesthetic plan discussed with same and consent obtained from daughter. Presented with confusion and AMS now scheduled for BKA. No known hx anesthetic complications.
[2021-09-09] MEDS: INSULIN LISPRO 100 UNIT/ML SUB-Q SCH (21:59)
[2021-09-10] MEDS: HYDROmorphone 0.5 MG/0.5 ML INJ IV PRN ×3 (02:00→13:06)
[2021-09-10 04:52] LABS: Hematocrit 32.6 % (30.3-42.9); Hemoglobin 10.2 gm/dl (10.1-14.3); Mean Corpuscular HGB Conc 31 % (30-34); Mean Corpuscular Volume 80 fl (79-97); Platelet Count 434 K/mm3 (140-440); Red Blood Count 4.06 M/mm3 (3.65-5.03)
[2021-09-10 05:05] LABS: Red Cell Distribution Width 24.3 % (13.2-15.2)
[2021-09-10] MEDS: D5W/0.45% NACL 1,000 ML IV SCH (06:17)
[2021-09-10] MEDS: INSULIN LISPRO 100 UNIT/ML SUB-Q SCH ×4 (08:58→22:00)
[2021-09-10] MEDS: PANTOPRAZOLE 20 MG TAB PO SCH (08:58)
--- NOTE | 2021-09-10 09:34 | Progress Note ---
<PACHECO DAVILA - Last Filed: 09/10/21 17:13> Assessment and Plan Assessment and plan: This is a 56-year-old female with known past medical history of Deaf, ESRD on HD(T,R,Sa), HTN, DM, PVD s/p revascularization, chronic limbs ischemia, and medical noncompliance admitted for sepsis most likely due to LLE gangrene/cellulitus Hospital Course to Date: 09/09: LLE grangrene/cellullitis with foul odor noted. Patient also with leukocytosis, remains afebrile. Continue empiric IV abx for now, ID also consulted. Patient is s/p 2units of PRBCs, H&H improved this am. No s/s of any active bleeding, continue to trend H&H. According to patient's sister, patient eventually agreed to the Vascular Surgery recommendation for amputation and is scheduled to have her LLE amputated by Dr. Llamas. Vascular Surgery consulted. Anasarca and large volume ascites also reported from CTAP, orders placed for US paracentesis. 09/10: Mentation is unchanged. Plan for BKA today by Vascular Surgery. Patient remains afebrile, continue current IV Abx per ID. H&H remains stable. Patient tolerated HD overnight. US paracentesis pending. Per records patient was on Eliquis and Plavix, per family patient is noncompliant with meds. Resume meds if okay with Vascular Surgery. Assessment and Plan #Sepsis #Leukocytosis #Left Lower Extremity iscehmia with Gangrene/Cellutis - Presented with LLE ischemia with gangrene and foul odor and leukocytosi - Patient is afebrile, VSS - Blood cultures with NGTD - ID consulted, appreciate recommendations - Continue current IV Abx by ID - Patient refused LLE amputation last admission - Per patient's sister, patient eventually agreed to the Vascular Surgery recommendation for amputation and is scheduled to have her LLE amputated by Dr. Llamas - Vascular Surgery consulted for LLE ischemia eval and possible amputation, Plan for BKA today - Continue to F/U on cultures - Daily CBC monitor - Wound Care consulted #Peripheral Vascular Disease(PVD) #Chronic Limb ischemia #Left Lower Extremity Ischemia with gangrene - Chronic ischemia complicated by gangrene - Vascular Surgery recommended amputation last admission, patient refused at the time - Per patient's sister, patient eventually agreed to the Vascular Surgery recommendation for amputation and is scheduled to have her LLE amputated by Dr. Llamas. - Vascular Surgery Consulted, appreciate recommendations - Plan for BKA today - Wound care consulted - Per records patient was on Eliquis and Plavix, per family patient is noncompliant with meds. - Resume meds if okay with Vascular Surgery #Acute Metabolic Encephalopathy - most likely secondary to infectious process - Patient is awake but confused, very FLANDREAU - CT head/Brain with no acute intracranial abnormalities - Continue IV abx, possible BK amputation today - Avoid benzodiazepine to reduce the possibility of delirium - Maintenance of sleep-wake cycle #Hypertension - Updated home list pending - Resume home antihypertensives - Continue blood pressure monitor per protocol - Maintain SBP less than 160 #End-Stage Renal Disease(ESRD) on HD #Volume overload #Hyperkalemia #Noncompliance - Patient missed her previous dialysis session - Nephrology on consult, appreciated recommendation - Tolerated HD overnight - Continue HD per Nephro - Strict intake and output - Avoid nephrotoxic medications; Renally dose medications - Monitor and replace electrolytes as needed #Large Volume Ascites - Noted from CTAP - US paracentesis pending #Acute Pain - due to LLE ischemia/gangrene - PRN Analgesia for pain control #Anemia of Chronic Disease - probably due to ESRD - presented with hgb of 6.1, s/p 2units of PRBCs - No s/s of any active bleeding - H&H remains stable - Continue to trend H&H - Epogen per Nephro - Transfuse for hgb less than 7 #Type 2 Diabetes Mellitus - SSI and BH check ACHS - Avoid hypoglycemia - While critically ill target blood glucose of 140-180 #GI/DVT Prophylaxis - PPI- Protonix - SCD to bilateral lower extremities while in bed #Advance Care Planning - Disease education done, care plan, diagnoses, and prognosis discussed with the patient's sister. Patient is a FULL code. Patient's family acknowledged and understanding and agreement with current care plan. The high probability of a clinically significant, sudden or life threatening deterioration of the [multiple] system(s) required my full and direct attention, intervention and personal management. The aggregate critical care time was [60] minutes. This time is in addition to time spent performing reported procedures but includes the following: [x] Data Review and interpretation [x] Patient assessment and monitoring of vital signs [x] Documentation [x] Medication orders and management Disposition Plan: ICU Total Time Spent with Patient (Minutes): 60 History Interval history: Patient seen and examined at the bedside. Confused, very FLANDREAU, following simple commands. LLE ischemia with foul odor noted, clean dressing present. LUE dressing also noted, VSS. SHANI overnight Hospitalist Physical - Physical exam Narrative exam: General appearance: Present: mild distress, obese - EENT Eyes: Present: PERRL ENT: other (Very FLAND[place]AU) - Neck Neck: Present: normal ROM - Respiratory Respiratory effort: normal Respiratory: bilateral: diminished - Cardiovascular Rhythm: regular Heart Sounds: Present: S1 & S2 - Extremities Extremities: abnormal (LLE and X2 fingers (index and pinky) ischemia, malodourous) Extremity abnormal: edema - Peripheral Assessment Generalized Edema Type: Non-pitting Peripheral Pulses: abnormal - Abdominal General gastrointestinal: soft, distended, normal bowel sounds, hepatomegaly, other (Anasarca) - Integumentary Integumentary: Present: warm - Psychiatric Psychiatric: other (Awake but confused. Very FLANDREAU) - Neurologic Neurologic: moves all extremities (LLE and LUE guarded due to pain), other (Awake but confused. Very FLANDREAU) - Allied Health Allied health notes reviewed: nursing, case management - Constitutional Vitals: Temp Pulse Resp BP Pulse Ox 98.1 F 68 12 138/64 99 09/10/21 06:00 09/10/21 06:00 09/10/21 06:00 09/10/21 06:00 09/10/21 06:00 Results - Labs CBC & Chem 7: 09/10/21 04:31 09/10/21 04:31 Labs: Laboratory Last Values WBC 19.7 K/mm3 (4.5-11.0) H 09/10/21 04:31 RBC 4.06 M/mm3 (3.65-5.03) 09/10/21 04:31 Hgb 10.2 gm/dl (10.1-14.3) 09/10/21 04:31 Hct 32.6 % (30.3-42.9) 09/10/21 04:31 MCV 80 fl (79-97) 09/10/21 04:31 MCH 25 pg (28-32) L 09/10/21 04:31 MCHC 31 % (30-34) 09/10/21 04:31 RDW 24.3 % (13.2-15.2) H 09/10/21 04:31 Plt Count 434 K/mm3 (140-440) 09/10/21 04:31 Add Manual Diff Complete 09/09/21 04:41 Total Counted 100 09/09/21 04:41 Seg Neutrophils % Leasing Professional 09/09/21 04:41 Seg Neuts % (Manual) 96.0 % (40.0-70.0) H 09/09/21 04:41 Band Neutrophils % 0 % 09/09/21 04:41 Lymphocytes % (Manual) 3.0 % (13.4-35.0) L 09/09/21 04:41 Reactive Lymphs % (Man) 0 % 09/09/21 04:41 Monocytes % (Manual) 1.0 % (0.0-7.3) 09/09/21 04:41 Eosinophils % (Manual) 0 % (0.0-4.3) 09/09/21 04:41 Basophils % (Manual) 0 % (0.0-1.8) 09/09/21 04:41 Metamyelocytes % 0 % 09/09/21 04:41 Myelocytes % 0 % 09/09/21 04:41 Promyelocytes % 0 % 09/09/21 04:41 Blast Cells % 0 % 09/09/21 04:41 Nucleated RBC % 1.0 % (0.0-0.9) H 09/09/21 04:41 Seg Neutrophils # Man 25.0 K/mm3 (1.8-7.7) H 09/09/21 04:41 Band Neutrophils # 0.0 K/mm3 09/09/21 04:41 Lymphocytes # (Manual) 0.8 K/mm3 (1.2-5.4) L 09/09/21 04:41 Abs React Lymphs (Man) 0.0 K/mm3 09/09/21 04:41 Monocytes # (Manual) 0.3 K/mm3 (0.0-0.8) 09/09/21 04:41 Eosinophils # (Manual) 0.0 K/mm3 (0.0-0.4) 09/09/21 04:41 Basophils # (Manual) 0.0 K/mm3 (0.0-0.1) 09/09/21 04:41 Metamyelocytes # 0.0 K/mm3 09/09/21 04:41 Myelocytes # 0.0 K/mm3 09/09/21 04:41 Promyelocytes # 0.0 K/mm3 09/09/21 04:41 Blast Cells # 0.0 K/mm3 09/09/21 04:41 WBC Morphology Not Reportable 09/09/21 04:41 Hypersegmented Neuts Not Reportable 09/09/21 04:41 Hyposegmented Neuts Not Reportable 09/09/21 04:41 Hypogranular Neuts Not Reportable 09/09/21 04:41 Smudge Cells Not Reportable 09/09/21 04:41 Toxic Granulation Not Reportable 09/09/21 04:41 Toxic Vacuolation Not Reportable 09/09/21 04:41 Dohle Bodies Not Reportable 09/09/21 04:41 Pelger-Huet Anomaly Not Reportable 09/09/21 04:41 Cosme Rods Not Reportable 09/09/21 04:41 Platelet Estimate Consistent w auto 09/09/21 04:41 Clumped Platelets Not Reportable 09/09/21 04:41 Plt Clumps, EDTA Not Reportable 09/09/21 04:41 Large Platelets Not Reportable 09/09/21 04:41 Giant Platelets Not Reportable 09/09/21 04:41 Platelet Satelliting Not Reportable 09/09/21 04:41 Plt Morphology Comment Not Reportable 09/09/21 04:41 RBC Morphology Not Reportable 09/09/21 04:41 Dimorphic RBCs Not Reportable 09/09/21 04:41 Polychromasia Not Reportable 09/09/21 04:41 Hypochromasia 2+ 09/09/21 04:41 Poikilocytosis 1+ 09/09/21 04:41 Anisocytosis 2+ 09/09/21 04:41 Microcytosis Not Reportable 09/09/21 04:41 Macrocytosis Not Reportable 09/09/21 04:41 Spherocytes Not Reportable 09/09/21 04:41 Pappenheimer Bodies Not Reportable 09/09/21 04:41 Sickle Cells Not Reportable 09/09/21 04:41 Target Cells Not Reportable 09/09/21 04:41 Tear Drop Cells Not Reportable 09/09/21 04:41 Ovalocytes Rare 09/09/21 04:41 Helmet Cells Not Reportable 09/09/21 04:41 [place] Bodies Not Reportable 09/09/21 04:41 Capac Rings Not Reportable 09/09/21 04:41 [place] Cells Not Reportable 09/09/21 04:41 Bite Cells Not Reportable 09/09/21 04:41 Crenated Cell Not Reportable 09/09/21 04:41 Elliptocytes Few 09/09/21 04:41 Acanthocytes (Spur) Few 09/09/21 04:41 Rouleaux Not Reportable 09/09/21 04:41 Hemoglobin C Crystals Not Reportable 09/09/21 04:41 Schistocytes Not Reportable 09/09/21 04:41 Malaria parasites Not Reportable 09/09/21 04:41 Jozef Bodies Not Reportable 09/09/21 04:41 Hem Pathologist Commnt No 09/09/21 04:41 PT 19.1 Sec. (12.2-14.9) H 09/08/21 15:56 INR 1.42 (0.87-1.13) H 09/08/21 15:56 APTT 37.7 Sec. (24.2-36.6) H 09/08/21 15:56 Sodium 136 mmol/L (137-145) L 09/10/21 04:31 Potassium 4.3 mmol/L (3.6-5.0) D 09/10/21 04:31 Chloride 97.8 mmol/L (98-107) L 09/10/21 04:31 Carbon Dioxide 21 mmol/L (22-30) L 09/10/21 04:31 Anion Gap 22 mmol/L 09/10/21 04:31 BUN 54 mg/dL (7-17) H 09/10/21 04:31 Creatinine 5.6 mg/dL (0.6-1.2) H 09/10/21 04:31 Estimated GFR 10 ml/min 09/10/21 04:31 BUN/Creatinine Ratio 10 % 09/10/21 04:31 Glucose 92 mg/dL (65-100) 09/10/21 04:31 Lactic Acid 1.40 mmol/L (0.7-2.0) 09/09/21 04:41 Calcium 9.0 mg/dL (8.4-10.2) 09/10/21 04:31 Total Bilirubin 1.60 mg/dL (0.1-1.2) H 09/09/21 04:41 Direct Bilirubin 0.4 mg/dL (0-0.2) H 09/08/21 15:56 Indirect Bilirubin 0.1 mg/dL 09/08/21 15:56 AST 14 units/L (5-40) 09/09/21 04:41 ALT 7 units/L (7-56) 09/09/21 04:41 Alkaline Phosphatase 170 units/L (35-129) H 09/09/21 04:41 Ammonia 19.0 umol/L (25-60) L 09/08/21 15:56 Total Creatine Kinase 77 units/L (30-135) 09/08/21 15:56 Total Protein 7.3 g/dL (6.3-8.2) 09/09/21 04:41 Albumin 2.5 g/dL (3.9-5) L 09/09/21 04:41 Albumin/Globulin Ratio 0.5 % 09/09/21 04:41 Blood Type A POSITIVE 09/08/21 20:40 Antibody Screen Negative 09/08/21 20:40 Crossmatch See Detail 09/08/21 20:40 Microbiology: Microbiology 09/08/21 15:56 Peripheral/Venous Blood Culture - Preliminary NO GROWTH AFTER 24 HOURS 09/08/21 15:56 Peripheral/Venous Blood Culture - Preliminary NO GROWTH AFTER 24 HOURS Active Medications - Current Medications Current Medications: Generic Name Dose Route Start Last Admin Trade Name Freq PRN Reason Stop Dose Admin Acetaminophen 650 mg 09/08/21 18:05 Acetaminophen 325 Mg Tab PO Q6H PRN Pain, Mild (1-3) Acetaminophen 650 mg 09/08/21 18:05 Acetaminophen 650 Mg Rect Supp TN Q6H PRN Pain MILD(1-3)/Fever >100.5/PALOMINO Carvedilol 12.5 mg 09/09/21 10:00 09/09/21 21:58 Carvedilol 12.5 Mg Tab PO Not Given Q12HR SHRUTI Dextrose 50 ml 09/09/21 18:00 Dextrose 50% In Water (25gm) 50 Ml Syringe IV Q30MIN PRN Hypoglycemia Protocol Hydromorphone HCl 0.5 mg 09/09/21 10:30 09/10/21 08:57 Hydromorphone 0.5 Mg/0.5 Ml Inj IV 0.5 mg Q4H PRN Administration Pain , Severe (7-10) Levofloxacin/Dextrose 500 mg in 100 mls @ 66.667 mls/hr 09/11/21 10:00 Levaquin 500mg/100ml IV Q48HR SHRUTI Protocol Sodium Chloride 100 mls @ 999 mls/hr 09/09/21 10:30 Nacl 0.9% IV KEV PRN Hypotension Dextrose/Sodium Chloride 1,000 mls @ 75 mls/hr 09/09/21 18:00 09/10/21 06:17 D5/0.45ns IV 75 mls/hr DIRECT SHRUTI Administration Insulin Human Lispro 0 unit 09/09/21 22:00 09/10/21 08:58 Insulin Lispro 100 Unit/Ml SUB-Q Not Given ACHS [facility] Protocol Isosorbide Mononitrate 30 mg 09/09/21 10:00 09/09/21 10:38 Isosorbide Mononitrate Er 30 Mg Tab PO 30 mg QDAY SHRUTI Administration Nifedipine 30 mg 09/09/21 10:00 09/09/21 10:39 Nifedipine Xl 30 Mg Tab PO 30 mg QDAY SHRUTI Administration Oxycodone/Acetaminophen 1 tab 09/08/21 18:05 09/09/21 18:57 Oxycodone /Acetaminophen 5-325mg Tab PO 1 tab Q6H PRN Administration Pain, Moderate (4-6) Pantoprazole Sodium 20 mg 09/10/21 07:30 09/10/21 08:58 Pantoprazole 20 Mg Tab PO Not Given QDAC SHRUTI Sodium Chloride 10 ml 09/08/21 22:00 09/09/21 21:59 Sodium Chloride 0.9% 10 Ml Flush Syringe IV 10 ml BID SHRUTI Administration Sodium Chloride 10 ml 09/08/21 18:05 Sodium Chloride 0.9% 10 Ml Flush Syringe IV PRN PRN LINE FLUSH Nutrition/Malnutrition Assess - Dietary Evaluation Nutrition/Malnutrition Findings: Nutrition Notes Start: 09/09/21 17:01 Freq: Status: Active Protocol: Document 09/09/21 17:01 ASHLI (Rec: 09/09/21 17:33 ASHLI [id number]) Nutrition Notes 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 Current Diet Cardiac/Consistent Carbohydrates Diet (since B ), NPO (09/10 00:01). Labs/Tests 09/09: Na 133, K 5.4, Cl 94.7, CO2 18, BUN 96, Crea 8.4, Glu 116. Pertinent Medications 09/09: Nutritionally unremarkable. 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 Weight Status Obese Subjective/Other Information RD consult for skin risk assessment. No reports available on Pt's PO intake of meals at the time , will assess at F/U. Pt will be on NPO after midnight for surgery. Pt is on Room Air, O2 saturation @ 97%, according to Physical Assessment History notes. Pt presents several skin problems agravated from PVD: R -Heel ischemia/cellulitis, L- Foot gangrene, L-Hand index digit gangrene, according to Admission Documents and Physical Assessment History notes. Procedure planned for 09/10: L -LE BKA, according to Consultation note. Percent of energy/protein needs met: Prescribed Cardiac/Consistent Carbohydrates Diet provides for energy/protein needs (1, 977 Kcal/86 g) during LOS. Burn Absent Trauma Absent GI Symptoms None Food Allergy No Skin Integrity/Comment R-Heel ischemia, L-Foot gangrene... Minimum of two criteria No Fluid Accumulation N/A Reduced First Cook Strength N/A (non-severe) Protein-Calorie Malnutrition N\A #1 Nutrition Diagnosis Increased nutrient needs ( specify in comment below) Comments: Protein to support wound healing processes. Etiology PVD. As Evidenced by Signs and Symptoms Pt presents several skin problems agravated from PVD: R -Heel ischemia/cellulitis, L- Foot gangrene, L-Hand index digit gangrene, according to Admission Documents and Physical Assessment History notes. Is patient on ventilator? No Is Patient Ambulatory and/or Out of Bed No REE-([facility]-confined to bed) 1487.112 Kcal/Kg value to use for calculation 15 Approximate Energy Requirements Using 1086 kcal/Kg Calculation Used for Recommendations Kcal/kg Additional Notes Protein: 1.5-2 g/Kg AdjBW; 89- 118 g/day. Fluids: 1 ml/Kcal, or as per MD. Nutrition Intervention Change Diet Order: When pertinent resume Cardiac/ Consistent Carbohydrates Diet. Goal #1 Adjust the dietary intervention to better serve Pt's needs and clinical conditions during LOS. Follow-Up By: 09/16/21 Additional Comments When pertinent continue monitoring food tolerance, %PO intake of meals, and BM. <AMADEO TORIBIO - Last Filed: 09/11/21 07:15> Assessment and Plan Assessment and plan: I saw and evaluated the patient. I agree with the findings and the plan of care as documented in the Nurse Practitioner's~note, with the following corrections and additions. Hospitalist Physical - Constitutional Vitals: Temp Pulse Resp BP Pulse Ox 97.6 F 81 12 150/67 100 09/11/21 03:00 09/11/21 06:00 09/11/21 06:00 09/11/21 06:00 09/11/21 05:00 Results - Labs CBC & Chem 7: 09/11/21 04:27 09/11/21 04:27 Labs: Laboratory Last Values WBC 14.7 K/mm3 (4.5-11.0) H 09/11/21 04:27 RBC 3.25 M/mm3 (3.65-5.03) L 09/11/21 04:27 Hgb 8.3 gm/dl (10.1-14.3) L 09/11/21 04:27 Hct 26.4 % (30.3-42.9) L D 09/11/21 04:27 MCV 81 fl (79-97) 09/11/21 04:27 MCH 26 pg (28-32) L 09/11/21 04:27 MCHC 31 % (30-34) 09/11/21 04:27 RDW 24.2 % (13.2-15.2) H 09/11/21 04:27 Plt Count 381 K/mm3 (140-440) 09/11/21 04:27 Add Manual Diff Complete 09/09/21 04:41 Total Counted 100 09/09/21 04:41 Seg Neutrophils % Leasing Professional 09/09/21 04:41 Seg Neuts % (Manual) 96.0 % (40.0-70.0) H 09/09/21 04:41 Band Neutrophils % 0 % 09/09/21 04:41 Lymphocytes % (Manual) 3.0 % (13.4-35.0) L 09/09/21 04:41 Reactive Lymphs % (Man) 0 % 09/09/21 04:41 Monocytes % (Manual) 1.0 % (0.0-7.3) 09/09/21 04:41 Eosinophils % (Manual) 0 % (0.0-4.3) 09/09/21 04:41 Basophils % (Manual) 0 % (0.0-1.8) 09/09/21 04:41 Metamyelocytes % 0 % 09/09/21 04:41 Myelocytes % 0 % 09/09/21 04:41 Promyelocytes % 0 % 09/09/21 04:41 Blast Cells % 0 % 09/09/21 04:41 Nucleated RBC % 1.0 % (0.0-0.9) H 09/09/21 04:41 Seg Neutrophils # Man 25.0 K/mm3 (1.8-7.7) H 09/09/21 04:41 Band Neutrophils # 0.0 K/mm3 09/09/21 04:41 Lymphocytes # (Manual) 0.8 K/mm3 (1.2-5.4) L 09/09/21 04:41 Abs React Lymphs (Man) 0.0 K/mm3 09/09/21 04:41 Monocytes # (Manual) 0.3 K/mm3 (0.0-0.8) 09/09/21 04:41 Eosinophils # (Manual) 0.0 K/mm3 (0.0-0.4) 09/09/21 04:41 Basophils # (Manual) 0.0 K/mm3 (0.0-0.1) 09/09/21 04:41 Metamyelocytes # 0.0 K/mm3 09/09/21 04:41 Myelocytes # 0.0 K/mm3 09/09/21 04:41 Promyelocytes # 0.0 K/mm3 09/09/21 04:41 Blast Cells # 0.0 K/mm3 09/09/21 04:41 WBC Morphology Not Reportable 09/09/21 04:41 Hypersegmented Neuts Not Reportable 09/09/21 04:41 Hyposegmented Neuts Not Reportable 09/09/21 04:41 Hypogranular Neuts Not Reportable 09/09/21 04:41 Smudge Cells Not Reportable 09/09/21 04:41 Toxic Granulation Not Reportable 09/09/21 04:41 Toxic Vacuolation Not Reportable 09/09/21 04:41 Dohle Bodies Not Reportable 09/09/21 04:41 Pelger-Huet Anomaly Not Reportable 09/09/21 04:41 Cosme Rods Not Reportable 09/09/21 04:41 Platelet Estimate Consistent w auto 09/09/21 04:41 Clumped Platelets Not Reportable 09/09/21 04:41 Plt Clumps, EDTA Not Reportable 09/09/21 04:41 Large Platelets Not Reportable 09/09/21 04:41 Giant Platelets Not Reportable 09/09/21 04:41 Platelet Satelliting Not Reportable 09/09/21 04:41 Plt Morphology Comment Not Reportable 09/09/21 04:41 RBC Morphology Not Reportable 09/09/21 04:41 Dimorphic RBCs Not Reportable 09/09/21 04:41 Polychromasia Not Reportable 09/09/21 04:41 Hypochromasia 2+ 09/09/21 04:41 Poikilocytosis 1+ 09/09/21 04:41 Anisocytosis 2+ 09/09/21 04:41 Microcytosis Not Reportable 09/09/21 04:41 Macrocytosis Not Reportable 09/09/21 04:41 Spherocytes Not Reportable 09/09/21 04:41 Pappenheimer Bodies Not Reportable 09/09/21 04:41 Sickle Cells Not Reportable 09/09/21 04:41 Target Cells Not Reportable 09/09/21 04:41 Tear Drop Cells Not Reportable 09/09/21 04:41 Ovalocytes Rare 09/09/21 04:41 Helmet Cells Not Reportable 09/09/21 04:41 [place] Bodies Not Reportable 09/09/21 04:41 Capac Rings Not Reportable 09/09/21 04:41 [place] Cells Not Reportable 09/09/21 04:41 Bite Cells Not Reportable 09/09/21 04:41 Crenated Cell Not Reportable 09/09/21 04:41 Elliptocytes Few 09/09/21 04:41 Acanthocytes (Spur) Few 09/09/21 04:41 Rouleaux Not Reportable 09/09/21 04:41 Hemoglobin C Crystals Not Reportable 09/09/21 04:41 Schistocytes Not Reportable 09/09/21 04:41 Malaria parasites Not Reportable 09/09/21 04:41 Jozef Bodies Not Reportable 09/09/21 04:41 Hem Pathologist Commnt No 09/09/21 04:41 PT 19.1 Sec. (12.2-14.9) H 09/08/21 15:56 INR 1.42 (0.87-1.13) H 09/08/21 15:56 APTT 37.7 Sec. (24.2-36.6) H 09/08/21 15:56 Sodium 134 mmol/L (137-145) L 09/11/21 04:27 Potassium 4.7 mmol/L (3.6-5.0) 09/11/21 04:27 Chloride 97.6 mmol/L (98-107) L 09/11/21 04:27 Carbon Dioxide 21 mmol/L (22-30) L 09/11/21 04:27 Anion Gap 20 mmol/L 09/11/21 04:27 BUN 59 mg/dL (7-17) H 09/11/21 04:27 Creatinine 7.1 mg/dL (0.6-1.2) H 09/11/21 04:27 Estimated GFR 7 ml/min 09/11/21 04:27 BUN/Creatinine Ratio 8 % 09/11/21 04:27 Glucose 91 mg/dL (65-100) 09/11/21 04:27 POC Glucose 115 mg/dL (70-105) H 09/10/21 21:01 Lactic Acid 1.40 mmol/L (0.7-2.0) 09/09/21 04:41 Calcium 8.3 mg/dL (8.4-10.2) L 09/11/21 04:27 Total Bilirubin 1.60 mg/dL (0.1-1.2) H 09/09/21 04:41 Direct Bilirubin 0.4 mg/dL (0-0.2) H 09/08/21 15:56 Indirect Bilirubin 0.1 mg/dL 09/08/21 15:56 AST 14 units/L (5-40) 09/09/21 04:41 ALT 7 units/L (7-56) 09/09/21 04:41 Alkaline Phosphatase 170 units/L (35-129) H 09/09/21 04:41 Ammonia 19.0 umol/L (25-60) L 09/08/21 15:56 Total Creatine Kinase 77 units/L (30-135) 09/08/21 15:56 Total Protein 7.3 g/dL (6.3-8.2) 09/09/21 04:41 Albumin 2.5 g/dL (3.9-5) L 09/09/21 04:41 Albumin/Globulin Ratio 0.5 % 09/09/21 04:41 Random Vancomycin 10.4 ug/mL (0-40.0) 09/11/21 04:27 Blood Type A POSITIVE 09/08/21 20:40 Antibody Screen Negative 09/08/21 20:40 Crossmatch See Detail 09/08/21 20:40 Microbiology: Microbiology 09/08/21 15:56 Peripheral/Venous Blood Culture - Preliminary NO GROWTH AFTER 48 HOURS 09/08/21 15:56 Peripheral/Venous Blood Culture - Preliminary NO GROWTH AFTER 48 HOURS Active Medications - Current Medications Current Medications: Generic Name Dose Route Start Last Admin Trade Name Freq PRN Reason Stop Dose Admin Acetaminophen 650 mg 09/08/21 18:05 Acetaminophen 325 Mg Tab PO Q6H PRN Pain, Mild (1-3) Acetaminophen 650 mg 09/08/21 18:05 Acetaminophen 650 Mg Rect Supp TN Q6H PRN Pain MILD(1-3)/Fever >100.5/PALOMINO Carvedilol 12.5 mg 09/09/21 10:00 09/10/21 23:15 Carvedilol 12.5 Mg Tab PO 12.5 mg Q12HR SHRUTI Administration Clopidogrel Bisulfate 75 mg 09/11/21 10:00 Clopidogrel 75 Mg Tab PO QDAY SHRUTI Dextrose 50 ml 09/09/21 18:00 Dextrose 50% In Water (25gm) 50 Ml Syringe IV Q30MIN PRN Hypoglycemia Protocol Epoetin Darío-epbx 10,000 unit 09/11/21 12:00 Epoetin Darío-Epbx 10,000 Unit/1 Ml Vial SUB-Q KEV SHRUTI Fentanyl 50 mcg 09/10/21 19:57 Fentanyl 100 Mcg/2 Ml Inj IV 09/11/21 19:56 Q5MIN PRN Pain , Severe (7-10) Hydromorphone HCl 0.5 mg 09/09/21 10:30 09/11/21 06:22 Hydromorphone 0.5 Mg/0.5 Ml Inj IV 0.5 mg Q4H PRN Administration Pain , Severe (7-10) Levofloxacin/Dextrose 500 mg in 100 mls @ 66.667 mls/hr 09/11/21 10:00 Levaquin 500mg/100ml IV Q48HR [facility] Protocol Sodium Chloride 100 mls @ 999 mls/hr 09/09/21 10:30 Nacl 0.9% IV KEV PRN Hypotension Dextrose/Sodium Chloride 1,000 mls @ 75 mls/hr 09/09/21 18:00 09/11/21 01:55 D5/0.45ns IV 75 mls/hr DIRECT SHRUTI Administration Insulin Human Lispro 0 unit 09/09/21 22:00 09/10/21 22:00 Insulin Lispro 100 Unit/Ml SUB-Q Not Given ACHS [facility] Protocol Isosorbide Mononitrate 30 mg 09/09/21 10:00 09/10/21 10:23 Isosorbide Mononitrate Er 30 Mg Tab PO Not Given QDAY [facility] Nifedipine 30 mg 09/09/21 10:00 09/10/21 10:23 Nifedipine Xl 30 Mg Tab PO Not Given QDAY [facility] Oxycodone/Acetaminophen 1 tab 09/08/21 18:05 09/09/21 18:57 Oxycodone /Acetaminophen 5-325mg Tab PO 1 tab Q6H PRN Administration Pain, Moderate (4-6) Pantoprazole Sodium 20 mg 09/10/21 07:30 09/10/21 08:58 Pantoprazole 20 Mg Tab PO Not Given QDAC [facility] Pentoxifylline 400 mg 09/11/21 10:00 Pentoxifylline Er 400 Mg Tab PO DAILY [facility] [facility] Sodium Chloride 10 ml 09/08/21 22:00 09/11/21 01:57 Sodium Chloride 0.9% 10 Ml Flush Syringe IV Not Given BID SHRUTI Sodium Chloride 10 ml 09/08/21 18:05 Sodium Chloride 0.9% 10 Ml Flush Syringe IV PRN PRN LINE FLUSH Nutrition/Malnutrition Assess - Dietary Evaluation Nutrition/Malnutrition Findings: Nutrition Notes Start: 09/09/21 17:01 Freq: Status: Active Protocol: Document 09/10/21 16:52 ASHLI (Rec: 09/10/21 17:02 ASHLI [id number]) Nutrition Notes Initial or Follow up Brief Note Current Diagnosis CKD (stage V CKD),Diabetes, Sepsis,Hypertension Other Pertinent Diagnosis ESRD+HD, PVD, R-Foot Ischemia, L-LE Gangrene, Anasarca, Leukocytosis... Current Diet NPO (09/10 00:01). Height 5 ft Weight 72.4 kg Dale Body Weight (kg) 45.45 BMI 31.1 Weight change and time frame No body weight change reported in 1 day. Weight Status Obese Subjective/Other Information RD consult for nutrition education assessment. Pt currently on NPO. Paracentesis performed on , well tolerated, according to Progress notes. Procedure planned for 09/10: L -LE BKA, according to Consultation note. Pt still in critical condition , not a candidate for Nutrition Education at the time, will assess feasibility on F/U. Percent of energy/protein needs met: Pt currently on NPO. Nutrition Intervention Follow-Up By: 09/16/21 Additional Comments When pertinent continue monitoring food tolerance, %PO intake of meals, and BM.
[2021-09-10] MEDS ORDERED: FAMOTIDINE 20 MG TAB PO SCH (10:00)
[2021-09-10] MEDS: carvediloL 12.5 MG TAB PO SCH ×2 (10:23→23:15)
[2021-09-10] MEDS: NIFEdipine XL 30 MG TAB PO SCH (10:23)
--- NOTE | 2021-09-10 11:19 | Progress Note ---
Assessment and Plan - Patient Problems (1) ESRD needing dialysis Current Visit: Yes Status: Chronic Plan to address problem: arranged HD on TTS schedule for correction of hyperkalemia, solute clearance and volume control (2) Sepsis Current Visit: Yes Status: Acute Plan to address problem: on sepsis protocol, cont empiric ABXs with IV vanco, zosyn, levaquin. please ensure meds are dosed for HD. Possible superinfection to her chronic ischemic gangrene, follow ID/vascular surgery recommendations (3) Hyperkalemia Current Visit: Yes Status: Acute (4) Acute on chronic anemia Current Visit: Yes Status: Acute Plan to address problem: s/p 2PRBC transfusion, target Hb > 7. 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 disease or end stage renal disease Current Visit: No Status: Acute Plan to address problem: monitor BP on current meds (6) Type 2 diabetes mellitus with diabetic chronic kidney disease Current Visit: No Status: Acute Plan to address problem: diabetes management as per primary attending (7) Peripheral vascular disease Current Visit: Yes Status: Acute Plan to address problem: appreciate vacsular surgery recommendations, pt being evaluation for possible BKA Subjective Date of service: 09/10/21 Principal diagnosis: ESRD Interval history: Patient seen in the IMCU, awake, alert, in no acute distress Objective - Vital Signs Vital signs: Vital Signs - 12hr 09/09/21 09/09/21 09/09/21 23:30 23:45 23:52 Temperature Pulse Rate 59 L 64 61 Pulse Rate [ Apical] Respiratory Rate Blood Pressure 121/54 130/62 144/61 O2 Sat by Pulse Oximetry O2 Sat by Pulse Oximetry [ Anterior Bilateral Throughout] 09/10/21 09/10/21 09/10/21 00:00 01:00 02:00 Temperature 97.8 F Pulse Rate 69 70 69 Pulse Rate [ Apical] Respiratory 13 14 17 Rate Blood Pressure 145/65 143/60 155/62 O2 Sat by Pulse 94 100 99 Oximetry O2 Sat by Pulse 100 Oximetry [ Anterior Bilateral Throughout] 09/10/21 09/10/21 09/10/21 03:00 04:01 05:00 Temperature Pulse Rate 73 61 69 Pulse Rate [ 75 Apical] Respiratory 12 11 L 15 Rate Blood Pressure 149/67 158/65 148/70 O2 Sat by Pulse 100 100 100 Oximetry O2 Sat by Pulse Oximetry [ Anterior Bilateral Throughout] 09/10/21 09/10/21 09/10/21 06:00 07:00 07:01 Temperature 98.1 F Pulse Rate 68 69 Pulse Rate [ 73 Apical] Respiratory 12 12 13 Rate Blood Pressure 138/64 152/69 O2 Sat by Pulse 99 96 87 Oximetry O2 Sat by Pulse Oximetry [ Anterior Bilateral Throughout] 09/10/21 09/10/21 09/10/21 08:00 09:00 10:00 Temperature Pulse Rate 70 72 73 Pulse Rate [ Apical] Respiratory 12 11 L Rate Blood Pressure 144/68 137/77 O2 Sat by Pulse 96 99 Oximetry O2 Sat by Pulse Oximetry [ Anterior Bilateral Throughout] 09/10/21 09/10/21 10:01 10:37 Temperature 98.0 F Pulse Rate 79 Pulse Rate [ Apical] Respiratory 15 Rate Blood Pressure 157/79 O2 Sat by Pulse Oximetry O2 Sat by Pulse Oximetry [ Anterior Bilateral Throughout] - General Appearance General appearance: well-developed, well-nourished, appears stated age EENT: ATNC, PERRL, mucous membranes moist Neck: no JVD Respiratory: Present: Clear to Ascultation Cardiology: regular, S1S2 Gastrointestinal: normoactive bowel sounds Integumentary: no rash, other (Gangrene of the left second digit involving the middle phalanx, and tip of the left fifth digit) Neurologic: no focal deficit, alert and oriented x3, CN 3-12 intact - Lab 09/10/21 04:31 09/10/21 04:31 Most recent lab results Calcium 9.0 mg/dL (8.4-10.2) 09/10/21 04:31 Medications & Allergies - Medications Allergies/Adverse Reactions: Allergies No Known Allergies Allergy (Verified 09/08/21 14:34) Home Medications: Home Medications Medication Instructions Recorded Confirmed Last Taken Type Acetaminophen [Acetaminophen TAB] 650 mg PO Q4H PRN tablet 04/01/21 09/09/21 07/06/21 Rx Pentoxifylline 400 mg PO DAILY #90 06/24/21 09/09/21 09/08/21 09:00 Rx Apixaban [Eliquis] 2.5 mg PO BID #180 07/07/21 09/09/21 09/08/21 09:00 Rx ALPRAZolam [Xanax TAB] 0.25 mg PO Q8H PRN #12 tablet 08/15/21 09/09/21 09/08/21 09:00 Rx Clopidogrel [Plavix] 75 mg PO QDAY #90 tablet 08/15/21 09/09/21 09/08/21 09:00 Rx Furosemide [Lasix TAB] 20 mg PO QDAY #30 tablet 08/15/21 09/09/21 09/08/21 09:00 Rx ISOSORBIDE MONOnitrate [Imdur ER] 30 mg PO QDAY #30 tablet 08/15/21 09/09/21 09/08/21 09:00 Rx NIFEdipine XL [Procardia Xl] 30 mg PO Q12HR #60 tablet 08/15/21 09/09/21 09/09/21 09:00 Rx Pantoprazole [Protonix TAB] 20 mg PO QDAC tablet. 08/15/21 09/09/21 09/08/21 09:00 Rx Valsartan [Diovan] 80 mg PO QDAY 30 Days #30 tab 08/15/21 09/09/21 09/08/21 09:00 Rx carvediloL [Coreg] 25 mg PO Q12HR #60 tablet 08/15/21 09/09/21 09/09/21 09:00 Rx sevelamer HCL [Sevelamer HCl] 800 mg PO TID 30 Days #90 tab 08/15/21 09/09/21 09/08/21 09:00 Rx oxyCODONE /ACETAMINOPHEN [Percocet 1 tab PO Q4H PRN 5 Days #30 tablet 08/29/21 09/09/21 09/08/21 09:00 Rx 5/325 mg] Active Medications: Generic Name Dose Route Start Last Admin Trade Name Freq PRN Reason Stop Dose Admin Acetaminophen 650 mg 09/08/21 18:05 Acetaminophen 325 Mg Tab PO Q6H PRN Pain, Mild (1-3) Acetaminophen 650 mg 09/08/21 18:05 Acetaminophen 650 Mg Rect Supp MA Q6H PRN Pain MILD(1-3)/Fever >100.5/PALOMINO Carvedilol 12.5 mg 09/09/21 10:00 09/09/21 21:58 Carvedilol 12.5 Mg Tab PO Not Given Q12HR SHRUTI Dextrose 50 ml 09/09/21 18:00 Dextrose 50% In Water (25gm) 50 Ml Syringe IV Q30MIN PRN Hypoglycemia Protocol Hydromorphone HCl 0.5 mg 09/09/21 10:30 09/10/21 08:57 Hydromorphone 0.5 Mg/0.5 Ml Inj IV 0.5 mg Q4H PRN Administration Pain , Severe (7-10) Levofloxacin/Dextrose 500 mg in 100 mls @ 66.667 mls/hr 09/11/21 10:00 Levaquin 500mg/100ml IV Q48HR SHRUTI Protocol Sodium Chloride 100 mls @ 999 mls/hr 09/09/21 10:30 Nacl 0.9% IV KEV PRN Hypotension Dextrose/Sodium Chloride 1,000 mls @ 75 mls/hr 09/09/21 18:00 09/10/21 06:17 D5/0.45ns IV 75 mls/hr DIRECT SHRUTI Administration Insulin Human Lispro 0 unit 09/09/21 22:00 09/10/21 08:58 Insulin Lispro 100 Unit/Ml SUB-Q Not Given ACHS [facility] Protocol Isosorbide Mononitrate 30 mg 09/09/21 10:00 09/09/21 10:38 Isosorbide Mononitrate Er 30 Mg Tab PO 30 mg QDAY SHRUTI Administration Nifedipine 30 mg 09/09/21 10:00 09/09/21 10:39 Nifedipine Xl 30 Mg Tab PO 30 mg QDAY SHRUTI Administration Oxycodone/Acetaminophen 1 tab 09/08/21 18:05 09/09/21 18:57 Oxycodone /Acetaminophen 5-325mg Tab PO 1 tab Q6H PRN Administration Pain, Moderate (4-6) Pantoprazole Sodium 20 mg 09/10/21 07:30 09/10/21 08:58 Pantoprazole 20 Mg Tab PO Not Given QDAC SHRUTI Sodium Chloride 10 ml 09/08/21 22:00 09/10/21 10:53 Sodium Chloride 0.9% 10 Ml Flush Syringe IV 10 ml BID SHRUTI Administration Sodium Chloride 10 ml 09/08/21 18:05 Sodium Chloride 0.9% 10 Ml Flush Syringe IV PRN PRN LINE FLUSH
--- NOTE | 2021-09-10 13:39 | Progress Note ---
Assessment and Plan Cultures: Blood culture no growth so far A/P: 56-year-old female past medical history ESRD on HD, diabetes, hypertension, PVD with chronic right lower extremity ischemia gangrene #Leukocytosis: has significant neutrophilic shift; unclear etiology. Possible superinfection to her chronic ischemic gangrene. #PVD with chronic gangrene: vascular had previously recommend amputation which she refused. #ESRD on HD: renally dose medications #Anasarca: with missed HD recently Recs: -Vancomycin goal trough 10-20 -Levaquin renally dosed -Follow up blood cultures Thank you for the consult, we will continue to follow. Anders Short MD [facility] ([facility]) O: [phone] F: [phone] Subjective Date of service: 09/10/21 Principal diagnosis: ESRD Interval history: Afebrile, white count improving to 19.7. Blood cultures remain negative. Paracentesis was performed. Objective - Exam Narrative Exam: Physical Exam: Constitutional: Alert, cooperative. No acute distress Head, Ears, Nose: Normocephalic, atraumatic. External ears, nose normal Eyes: Conjunctivae/corneas clear. No icterus. No ptosis. Neck: Supple, no meningeal signs Oral: dentition fair, no thrush Cardiovascular: S1, S2 normal. Respiratory: Good air entry, clear to auscultation bilaterally GI: Soft, non-tender; bowel sounds normal. No peritoneal signs. Musculoskeletal: RLE gangrene Skin: No rash or abscess Hem/Lymphatic: No palpable cervical or supraclavicular nodes. No lymphangitis Psych: Mood ok. Affect normal Neurological: Awake, alert, oriented. No gross abnormality - Constitutional Vitals: Vital Signs Temp Pulse Resp BP Pulse Ox 98.0 F 79 15 157/79 99 09/10/21 10:37 09/10/21 10:01 09/10/21 10:01 09/10/21 10:01 09/10/21 09:00 Temperature -Last 24 Hours Temperature 98.0 F Temperature 98.1 F Temperature 97.8 F Temperature 98.0 F - Labs CBC & Chem 7: 09/10/21 04:31 09/10/21 04:31 Labs: Abnormal lab results 09/10/21 09/10/21 Range/Units 04:31 04:31 WBC 19.7 H (4.5-11.0) K/mm3 MCH 25 L (28-32) pg RDW 24.3 H (13.2-15.2) % Sodium 136 L (137-145) mmol/L Chloride 97.8 L (98-107) mmol/L Carbon Dioxide 21 L (22-30) mmol/L BUN 54 H (7-17) mg/dL Creatinine 5.6 H (0.6-1.2) mg/dL
--- NOTE | 2021-09-10 14:58 | Ultrasound Report ---
ULTRASOUND-GUIDED PARACENTESIS INDICATION: Recurrent ascites As the patient is unable to consent, on 09/09/2021 I discussed the procedure at length with her sister including possible risks and benefits. Opportunity for questions was given. The cyst or a verbal inf ormed consent. Patient has had the procedure in the recent past, last year on 06/24/2021. Patient is no t on anticoagulant therapy and has no pertinent allergies. Timeout was performed. Sonography was used to localize a small but suitable pocket of ascites in the right lower quadrant. Under local anesthesia and aseptic technique, this collection was accessed usin g a [employer] catheter. Because of the small window between loops of bowel, catheter was inserted with direct sonographic guidance. 3700 cc of clear yellowish ascitic fluid were withdrawn by vacuum aspiration. The catheter was removed and the site was secured. Patient tolerated the procedure well a nd left the department for the floor in good condition. IMPRESSION: Successful ultrasound-guided paracentesis Signer Name: Yuniel Child MD Signed: 09/10/2021 2:53 PM Workstation Name: [id number]
[2021-09-10] MEDS ORDERED: HYDROmorphone 1 MG/1 ML INJ ONE (19:14)
[2021-09-10] MEDS ORDERED: LIDOCAINE MPF (2%) 20 MG/1 ML VIAL 5 ML ONE (19:14)
[2021-09-10] MEDS ORDERED: propofoL 200 MG/20 ML VIAL IV ONE (19:14)
[2021-09-10] MEDS ORDERED: BUPIVACAINE/PF (0.5%) 5 MG/1 ML 30 ML VIAL INFILTRATI ONE ×2 (19:20→20:25)
[2021-09-10] MEDS ORDERED: fentaNYL 100 MCG/2 ML INJ IV PRN (19:57)
--- NOTE | 2021-09-10 19:57 | Anesthesia Day of Surgery ---
Anesthesia Day of Surgery - Day of Surgery Patient Examined: Yes Patient H&P Reviewed: Yes Patient is NPO: Yes
[2021-09-10] MEDS ORDERED: ceFAZolin 1 GM VIAL ONE ×2 (20:00)
[2021-09-10] MEDS ORDERED: SODIUM CHLORIDE 0.9% IRR 1,500 ML BOTTLE IR ONE (20:24)
[2021-09-10] MEDS ORDERED: ePHEDrine SULFATE 50 MG/1 ML INJ ONE (20:26)
[2021-09-10] MEDS ORDERED: ONDANSETRON 4 MG/2 ML INJ ONE (20:38)
[2021-09-10] MEDS ORDERED: SODIUM CHLORIDE 0.9% 1000 ML 1,000 ML ONE (20:38)
--- NOTE | 2021-09-10 20:49 | Operative Report ---
Operative Report Operative Report: Date of procedure: 09/10/2021 Pre-operative diagnosis: Calciphylaxis and Peripheral Vascular Disease With Left Lower Extremity Gangrene Post-operative diagnosis: Same Procedure(s): Left Below Knee Amputation Surgeon: Leodan Duong MD Cell Tender Helper: None Anesthesia: General Endotracheal Anesthesia EBL: 200 mL Counts: Correct Complications: None Condition: Stable Findings: All remaining tissue was viable and free of overt signs of infection. Specimen: Left Leg Sent to Pathology Indication: The patient is a 56-year-old female with peripheral vascular disease who is also noncompliant with her dialysis and has developed calciphylaxis. She has developed gangrene of her left foot areas in need of a left below-knee amputation. She and her family have been given the risk, benefits, and alternative procedures and consented to the procedure. Description of Procedure: The patient was brought to the operating room and laid in supine position after general endotracheal anesthesia the patient's left leg was prepped and draped in normal sterile fashion. The leg was elevated and then a tourniquet was inflated to 300 mmHg. A transverse incision was then created approximately 3 fingerbreadths below the tibial tuberosity and carried the incision down distally to create a posterior flap, using a 10 blade. Electrocautery was then used to divide the muscle down to the tibia and then down to the fibula. I then used a periosteal elevator to elevate the periosteum on the tibia approximately 2 cm above the incision and then I used an oscillating saw to divide the tibia. I then used a double-action bone cutter to divide the fibula approximately 2 cm above the tibia. I divided the remainder of the soft tissue using electrocautery and passed the specimen off. I identified the neurovascular bundle and ligated both the vein and artery using 0 silk stick ties. I then used 0 silk to perform high ligation of the nerve. I released the tourniquet and evaluated the wound for adequate hemostasis. I achieved hemostasis using electrocautery and direct pressure. Once hemostasis was achieved I used a rasps to smooth the tibia and then copiously irrigated the wound with saline. I anesthetized the wound using 0.5% Marcaine l. I then closed the wound in 2 layers using 0 Vicryl to reapproximate the fascia and debra to close the skin. I dressed the wound with Xeroform gauze, fluffs, ABDs, Kerlix, and an Dax bandage. I placed an appropriately sized knee immobilizer. The patient tolerated the procedure well. All sponge, needle, and instrument counts were correct. The patient was taken to the recovery area in stable condition.
--- NOTE | 2021-09-10 21:23 | Post Anesthesia Evaluation ---
- Post Anesthesia Evaluation Patient Participated: Yes (purposeful movements, opens eyes, nods appropriately while reading lips) Airway Patent: Yes Stable Respiratory Function: Yes Nausea/Vomiting: No Temp > 96.8F: Yes Pain Manageable: Yes Adequeate Hydration: Yes Anesthesia Complications: No
[2021-09-11] MEDS: HYDROmorphone 0.5 MG/0.5 ML INJ IV PRN ×4 (00:23→19:19)
[2021-09-11] MEDS: D5W/0.45% NACL 1,000 ML IV SCH ×2 (00:23→01:55)
[2021-09-11 05:13] LABS: Hematocrit 26.4 % (30.3-42.9); Hemoglobin 8.3 gm/dl (10.1-14.3); Mean Corpuscular HGB Conc 31 % (30-34); Mean Corpuscular Volume 81 fl (79-97); Platelet Count 381 K/mm3 (140-440); Red Blood Count 3.25 M/mm3 (3.65-5.03)
[2021-09-11 05:18] LABS: Red Cell Distribution Width 24.2 % (13.2-15.2)
[2021-09-11 05:29] LABS: Calcium 8.3 mg/dL (8.4-10.2)
[2021-09-11] MEDS: INSULIN LISPRO 100 UNIT/ML SUB-Q SCH ×3 (10:08→17:28)
[2021-09-11] MEDS: carvediloL 12.5 MG TAB PO SCH (10:10)
[2021-09-11] MEDS: PENTOXIFYLLINE ER 400 MG TAB PO SCH (10:10)
[2021-09-11] MEDS: CLOPIDOGREL 75 MG TAB PO SCH (10:10)
[2021-09-11] MEDS: oxyCODONE /ACETAMINOPHEN 5-325MG TAB PO PRN ×2 (10:10→17:24)
[2021-09-11] MEDS: PANTOPRAZOLE 20 MG TAB PO SCH (10:10)
[2021-09-11] MEDS: NIFEdipine XL 30 MG TAB PO SCH (10:10)
--- NOTE | 2021-09-11 10:20 | Progress Note ---
Assessment and Plan Cultures: Blood culture no growth so far A/P: 56-year-old female past medical history ESRD on HD, diabetes, hypertension, PVD with chronic right lower extremity ischemia gangrene #Leukocytosis: has significant neutrophilic shift; unclear etiology. Possible superinfection to her chronic ischemic gangrene. #PVD with chronic gangrene: vascular had previously recommend amputation which she refused. #ESRD on HD: renally dose medications #Anasarca: with missed HD recently Recs: -Vancomycin goal trough 10-20 -Levaquin renally dosed -s/p BKA, which should be curative of infection. Her white count continues to respond, and her blood cultures remain negative. -Would continue antibiotics for a couple days post-op, then hopefully DC without Abx. Thank you for the consult, we will continue to follow. Anders Short MD [facility] ([facility]) O: [phone] F: [phone] Subjective Date of service: 09/11/21 Principal diagnosis: ESRD Interval history: Afebrile, white count improving now 14.7. Blood cultures remain negative so far. She was taken to the OR yesterday for left BKA. Objective - Exam Narrative Exam: Physical Exam: Constitutional: Alert, cooperative. No acute distress Head, Ears, Nose: Normocephalic, atraumatic. External ears, nose normal Eyes: Conjunctivae/corneas clear. No icterus. No ptosis. Neck: Supple, no meningeal signs Oral: dentition fair, no thrush Cardiovascular: S1, S2 normal. Respiratory: Good air entry, clear to auscultation bilaterally GI: Soft, non-tender; bowel sounds normal. No peritoneal signs. Musculoskeletal: RLE gangrene Skin: No rash or abscess Hem/Lymphatic: No palpable cervical or supraclavicular nodes. No lymphangitis Psych: Mood ok. Affect normal Neurological: Awake, alert, oriented. No gross abnormality - Constitutional Vitals: Vital Signs Temp Pulse Resp BP Pulse Ox 97.8 F 64 12 155/64 99 09/11/21 07:00 09/11/21 10:10 09/11/21 08:00 09/11/21 10:10 09/11/21 08:00 Temperature -Last 24 Hours Temperature 97.8 F Temperature 97.6 F Temperature 97.8 F Temperature 97.0 F Temperature 98.7 F Temperature 98 F Temperature 98.1 F Temperature 98.0 F - Labs CBC & Chem 7: 09/11/21 04:27 09/11/21 04:27 Labs: Abnormal lab results 09/10/21 09/11/21 09/11/21 Range/Units 21:01 04:27 04:27 WBC 14.7 H (4.5-11.0) K/mm3 RBC 3.25 L (3.65-5.03) M/mm3 Hgb 8.3 L (10.1-14.3) gm/dl Hct 26.4 L D (30.3-42.9) % MCH 26 L (28-32) pg RDW 24.2 H (13.2-15.2) % Sodium 134 L (137-145) mmol/L Chloride 97.6 L (98-107) mmol/L Carbon Dioxide 21 L (22-30) mmol/L BUN 59 H (7-17) mg/dL Creatinine 7.1 H (0.6-1.2) mg/dL POC Glucose 115 H (70-105) mg/dL Calcium 8.3 L (8.4-10.2) mg/dL
--- NOTE | 2021-09-11 11:02 | Progress Note ---
<PACHECO DAVILA - Last Filed: 09/11/21 15:12> Assessment and Plan Assessment and plan: This is a 56-year-old female with known past medical history of Deaf, ESRD on HD(T,R,Sa), HTN, DM, PVD s/p revascularization, chronic limbs ischemia, and medical noncompliance admitted for sepsis most likely due to LLE gangrene/cellulitus Hospital Course to Date: 09/09: LLE grangrene/cellullitis with foul odor noted. Patient also with leukocytosis, remains afebrile. Continue empiric IV abx for now, ID also consulted. Patient is s/p 2units of PRBCs, H&H improved this am. No s/s of any active bleeding, continue to trend H&H. According to patient's sister, patient eventually agreed to the Vascular Surgery recommendation for amputation and is scheduled to have her LLE amputated by Dr. Llamas. Vascular Surgery consulted. Anasarca and large volume ascites also reported from CTAP, orders placed for US paracentesis. 09/10: Mentation is unchanged. Plan for BKA today by Vascular Surgery. Patient remains afebrile, continue current IV Abx per ID. H&H remains stable. Patient tolerated HD overnight. US paracentesis pending. Per records patient was on Eliquis and Plavix, per family patient is noncompliant with meds. Resume meds if okay with Vascular Surgery. 09/11: S/p Left BKA and US paracentesis, 3.7L removed. Patient appears more awake and calm this am, tolerating PO intake, VSS. Continue PRN analgesia for pain control. Left stump noted with no complications noted. Home plavix resumed per Vascular Surgery. PT/OT ordered. Continue HD per Nephro. Patient is stable for transfer to Telemetry. Assessment and Plan #Sepsis #Leukocytosis #Left Lower Extremity iscehmia with Gangrene/Cellutis - Presented with LLE ischemia with gangrene and foul odor and leukocytosi - Patient is afebrile, VSS - Blood cultures with NGTD - ID consulted, appreciate recommendations - Continue current IV Abx by ID - Patient refused LLE amputation last admission - Per patient's sister, patient eventually agreed to the Vascular Surgery recommendation for amputation and is scheduled to have her LLE amputated by Dr. Llamas - Vascular Surgery consulted, appreciate recommendations - 09/10 s/p Left BKA by Vascular Surgery - Continue to F/U on cultures - Daily CBC monitor - Wound Care consulted #Peripheral Vascular Disease(PVD) #Chronic Limb ischemia #Left Lower Extremity Ischemia with gangrene - Chronic ischemia complicated by gangrene - Vascular Surgery recommended amputation last admission, patient refused at the time - Per patient's sister, patient eventually agreed to the Vascular Surgery recommendation for amputation and is scheduled to have her LLE amputated by Dr. Llamas. - Vascular Surgery Consulted, appreciate recommendations - 09/10 s/p Left BKA by Vascular Surgery - Wound care consulted - Per records patient was on Eliquis and Plavix, per family patient is noncompliant with meds. - Home plavix resumed by Vascular Surgery #Acute Metabolic Encephalopathy - most likely secondary to infectious process - Mentation improved this am, very [place] - CT head/Brain with no acute intracranial abnormalities - Continue IV abx, s/p left BKA - Avoid benzodiazepine to reduce the possibility of delirium - Maintenance of sleep-wake cycle #Hypertension - Updated home list pending - Resume home antihypertensives - Continue blood pressure monitor per protocol - Maintain SBP less than 160 #End-Stage Renal Disease(ESRD) on HD #Volume overload #Hyperkalemia #Noncompliance - Patient missed her previous dialysis session - Nephrology on consult, appreciated recommendation - Continue HD per Nephro - Strict intake and output - Avoid nephrotoxic medications; Renally dose medications - Monitor and replace electrolytes as needed #Large Volume Ascites - Noted from CTAP - 09/10 s/p US paracentesis, 3.7L removed #Acute Pain - due to LLE ischemia/gangrene - s/p left BKA - PRN Analgesia for pain control #Anemia of Chronic Disease - probably due to ESRD - presented with hgb of 6.1, s/p 2units of PRBCs - No s/s of any active bleeding - H&H remains stable - Continue to trend H&H - Epogen per Nephro - Transfuse for hgb less than 7 #Type 2 Diabetes Mellitus - SSI and BH check ACHS - Avoid hypoglycemia - While critically ill target blood glucose of 140-180 #GI/DVT Prophylaxis - PPI- Protonix - SCD to bilateral lower extremities while in bed #Advance Care Planning - Disease education done, care plan, diagnoses, and prognosis discussed with the patient's sister. Patient is a FULL code. Patient's family acknowledged and understanding and agreement with current care plan. The high probability of a clinically significant, sudden or life threatening deterioration of the [multiple] system(s) required my full and direct attention, intervention and personal management. The aggregate critical care time was [60] minutes. This time is in addition to time spent performing reported procedures but includes the following: [x] Data Review and interpretation [x] Patient assessment and monitoring of vital signs [x] Documentation [x] Medication orders and management Disposition Plan: IMCU Total Time Spent with Patient (Minutes): 40 History Interval history: Patient seen and examined at the bedside. s/p Left BKA and US paracentesis, 3.7L removed. Patient appears more awake and calm this am. Appropriate and tolerating PO intake, VSS. Left stump noted with CDI dressing, no complications noted. Hospitalist Physical - Constitutional Vitals: Temp Pulse Resp BP Pulse Ox 97.8 F 64 12 155/64 99 09/11/21 07:00 09/11/21 10:10 09/11/21 08:00 09/11/21 10:10 09/11/21 08:00 General appearance: Present: no acute distress, obese - EENT Eyes: Present: PERRL ENT: other (Very [place]) - Neck Neck: Present: normal ROM - Respiratory Respiratory effort: normal Respiratory: bilateral: diminished - Cardiovascular Rhythm: regular Heart Sounds: Present: S1 & S2 - Extremities Extremities: abnormal (left second digit and fifth digit necrosis. S/p Left BKA) Extremity abnormal: edema - Peripheral Assessment Generalized Edema Type: Non-pitting Edema Degree: 1+ Capillary Refill: < 3 seconds Skin Temperature: Warm Peripheral Pulses: within normal limits (RLE, s/p Left BKA) - Abdominal General gastrointestinal: soft, non-distended, normal bowel sounds - Integumentary Integumentary: Present: warm - Psychiatric Psychiatric: appropriate mood/affect, cooperative - Neurologic Neurologic: moves all extremities, other (Awake and appropriate, following commands) - Allied Health Allied health notes reviewed: nursing, case management Results - Labs CBC & Chem 7: 09/11/21 04:27 09/11/21 04:27 Labs: Laboratory Last Values WBC 14.7 K/mm3 (4.5-11.0) H 09/11/21 04:27 RBC 3.25 M/mm3 (3.65-5.03) L 09/11/21 04:27 Hgb 8.3 gm/dl (10.1-14.3) L 09/11/21 04:27 Hct 26.4 % (30.3-42.9) L D 09/11/21 04:27 MCV 81 fl (79-97) 09/11/21 04:27 MCH 26 pg (28-32) L 09/11/21 04:27 MCHC 31 % (30-34) 09/11/21 04:27 RDW 24.2 % (13.2-15.2) H 09/11/21 04:27 Plt Count 381 K/mm3 (140-440) 09/11/21 04:27 Add Manual Diff Complete 09/09/21 04:41 Total Counted 100 09/09/21 04:41 Seg Neutrophils % Construction Rep 09/09/21 04:41 Seg Neuts % (Manual) 96.0 % (40.0-70.0) H 09/09/21 04:41 Band Neutrophils % 0 % 09/09/21 04:41 Lymphocytes % (Manual) 3.0 % (13.4-35.0) L 09/09/21 04:41 Reactive Lymphs % (Man) 0 % 09/09/21 04:41 Monocytes % (Manual) 1.0 % (0.0-7.3) 09/09/21 04:41 Eosinophils % (Manual) 0 % (0.0-4.3) 09/09/21 04:41 Basophils % (Manual) 0 % (0.0-1.8) 09/09/21 04:41 Metamyelocytes % 0 % 09/09/21 04:41 Myelocytes % 0 % 09/09/21 04:41 Promyelocytes % 0 % 09/09/21 04:41 Blast Cells % 0 % 09/09/21 04:41 Nucleated RBC % 1.0 % (0.0-0.9) H 09/09/21 04:41 Seg Neutrophils # Man 25.0 K/mm3 (1.8-7.7) H 09/09/21 04:41 Band Neutrophils # 0.0 K/mm3 09/09/21 04:41 Lymphocytes # (Manual) 0.8 K/mm3 (1.2-5.4) L 09/09/21 04:41 Abs React Lymphs (Man) 0.0 K/mm3 09/09/21 04:41 Monocytes # (Manual) 0.3 K/mm3 (0.0-0.8) 09/09/21 04:41 Eosinophils # (Manual) 0.0 K/mm3 (0.0-0.4) 09/09/21 04:41 Basophils # (Manual) 0.0 K/mm3 (0.0-0.1) 09/09/21 04:41 Metamyelocytes # 0.0 K/mm3 09/09/21 04:41 Myelocytes # 0.0 K/mm3 09/09/21 04:41 Promyelocytes # 0.0 K/mm3 09/09/21 04:41 Blast Cells # 0.0 K/mm3 09/09/21 04:41 WBC Morphology Not Reportable 09/09/21 04:41 Hypersegmented Neuts Not Reportable 09/09/21 04:41 Hyposegmented Neuts Not Reportable 09/09/21 04:41 Hypogranular Neuts Not Reportable 09/09/21 04:41 Smudge Cells Not Reportable 09/09/21 04:41 Toxic Granulation Not Reportable 09/09/21 04:41 Toxic Vacuolation Not Reportable 09/09/21 04:41 Dohle Bodies Not Reportable 09/09/21 04:41 Pelger-Huet Anomaly Not Reportable 09/09/21 04:41 Cosme Rods Not Reportable 09/09/21 04:41 Platelet Estimate Consistent w auto 09/09/21 04:41 Clumped Platelets Not Reportable 09/09/21 04:41 Plt Clumps, EDTA Not Reportable 09/09/21 04:41 Large Platelets Not Reportable 09/09/21 04:41 Giant Platelets Not Reportable 09/09/21 04:41 Platelet Satelliting Not Reportable 09/09/21 04:41 Plt Morphology Comment Not Reportable 09/09/21 04:41 RBC Morphology Not Reportable 09/09/21 04:41 Dimorphic RBCs Not Reportable 09/09/21 04:41 Polychromasia Not Reportable 09/09/21 04:41 Hypochromasia 2+ 09/09/21 04:41 Poikilocytosis 1+ 09/09/21 04:41 Anisocytosis 2+ 09/09/21 04:41 Microcytosis Not Reportable 09/09/21 04:41 Macrocytosis Not Reportable 09/09/21 04:41 Spherocytes Not Reportable 09/09/21 04:41 Pappenheimer Bodies Not Reportable 09/09/21 04:41 Sickle Cells Not Reportable 09/09/21 04:41 Target Cells Not Reportable 09/09/21 04:41 Tear Drop Cells Not Reportable 09/09/21 04:41 Ovalocytes Rare 09/09/21 04:41 Helmet Cells Not Reportable 09/09/21 04:41 [place]-Prim[place]har Bodies Not Reportable 09/09/21 04:41 [place] Rings Not Reportable 09/09/21 04:41 Angelina Cells Not Reportable 09/09/21 04:41 Bite Cells Not Reportable 09/09/21 04:41 Crenated Cell Not Reportable 09/09/21 04:41 Elliptocytes Few 09/09/21 04:41 Acanthocytes (Spur) Few 09/09/21 04:41 Rouleaux Not Reportable 09/09/21 04:41 Hemoglobin C Crystals Not Reportable 09/09/21 04:41 Schistocytes Not Reportable 09/09/21 04:41 Malaria parasites Not Reportable 09/09/21 04:41 Jozef Bodies Not Reportable 09/09/21 04:41 Hem Pathologist Commnt No 09/09/21 04:41 PT 19.1 Sec. (12.2-14.9) H 09/08/21 15:56 INR 1.42 (0.87-1.13) H 09/08/21 15:56 APTT 37.7 Sec. (24.2-36.6) H 09/08/21 15:56 Sodium 134 mmol/L (137-145) L 09/11/21 04:27 Potassium 4.7 mmol/L (3.6-5.0) 09/11/21 04:27 Chloride 97.6 mmol/L (98-107) L 09/11/21 04:27 Carbon Dioxide 21 mmol/L (22-30) L 09/11/21 04:27 Anion Gap 20 mmol/L 09/11/21 04:27 BUN 59 mg/dL (7-17) H 09/11/21 04:27 Creatinine 7.1 mg/dL (0.6-1.2) H 09/11/21 04:27 Estimated GFR 7 ml/min 09/11/21 04:27 BUN/Creatinine Ratio 8 % 09/11/21 04:27 Glucose 91 mg/dL (65-100) 09/11/21 04:27 POC Glucose 115 mg/dL (70-105) H 09/10/21 21:01 Lactic Acid 1.40 mmol/L (0.7-2.0) 09/09/21 04:41 Calcium 8.3 mg/dL (8.4-10.2) L 09/11/21 04:27 Total Bilirubin 1.60 mg/dL (0.1-1.2) H 09/09/21 04:41 Direct Bilirubin 0.4 mg/dL (0-0.2) H 09/08/21 15:56 Indirect Bilirubin 0.1 mg/dL 09/08/21 15:56 AST 14 units/L (5-40) 09/09/21 04:41 ALT 7 units/L (7-56) 09/09/21 04:41 Alkaline Phosphatase 170 units/L (35-129) H 09/09/21 04:41 Ammonia 19.0 umol/L (25-60) L 09/08/21 15:56 Total Creatine Kinase 77 units/L (30-135) 09/08/21 15:56 Total Protein 7.3 g/dL (6.3-8.2) 09/09/21 04:41 Albumin 2.5 g/dL (3.9-5) L 09/09/21 04:41 Albumin/Globulin Ratio 0.5 % 09/09/21 04:41 Random Vancomycin 10.4 ug/mL (0-40.0) 09/11/21 04:27 Blood Type A POSITIVE 09/08/21 20:40 Antibody Screen Negative 09/08/21 20:40 Crossmatch See Detail 09/08/21 20:40 Microbiology: Microbiology 09/08/21 15:56 Peripheral/Venous Blood Culture - Preliminary NO GROWTH AFTER 48 HOURS 09/08/21 15:56 Peripheral/Venous Blood Culture - Preliminary NO GROWTH AFTER 48 HOURS Active Medications - Current Medications Current Medications: Generic Name Dose Route Start Last Admin Trade Name Freq PRN Reason Stop Dose Admin Acetaminophen 650 mg 09/08/21 18:05 Acetaminophen 325 Mg Tab PO Q6H PRN Pain, Mild (1-3) Acetaminophen 650 mg 09/08/21 18:05 Acetaminophen 650 Mg Rect Supp [place] Q6H PRN Pain MILD(1-3)/Fever >100.5/PALOMINO Carvedilol 12.5 mg 09/09/21 10:00 09/11/21 10:10 Carvedilol 12.5 Mg Tab PO 12.5 mg Q12HR SHRUTI Administration Clopidogrel Bisulfate 75 mg 09/11/21 10:00 09/11/21 10:10 Clopidogrel 75 Mg Tab PO 75 mg QDAY SHRUTI Administration Dextrose 50 ml 09/09/21 18:00 Dextrose 50% In Water (25gm) 50 Ml Syringe IV Q30MIN PRN Hypoglycemia Protocol Epoetin Darío-epbx 10,000 unit 09/11/21 12:00 Epoetin Darío-Epbx 10,000 Unit/1 Ml Vial SUB-Q KEV SHRUTI Fentanyl 50 mcg 09/10/21 19:57 Fentanyl 100 Mcg/2 Ml Inj IV 09/11/21 19:56 Q5MIN PRN Pain , Severe (7-10) Hydromorphone HCl 0.5 mg 09/09/21 10:30 09/11/21 06:22 Hydromorphone 0.5 Mg/0.5 Ml Inj IV 0.5 mg Q4H PRN Administration Pain , Severe (7-10) Levofloxacin/Dextrose 500 mg in 100 mls @ 66.667 mls/hr 09/11/21 10:00 09/11/21 10:09 Levaquin 500mg/100ml IV 66.667 mls/hr Q48HR SHRUTI Administration Protocol Sodium Chloride 100 mls @ 999 mls/hr 09/09/21 10:30 Nacl 0.9% IV KEV PRN Hypotension Dextrose/Sodium Chloride 1,000 mls @ 75 mls/hr 09/09/21 18:00 09/11/21 01:55 D5/0.45ns IV 75 mls/hr DIRECT SHRUTI Administration Vancomycin HCl 1 gm in 250 mls @ 167.007 mls/hr 09/11/21 22:00 Vancomycin/Ns 1 Gm/250 Ml IV TuThSa [facility] [place] Insulin Human Lispro 0 unit 09/09/21 22:00 09/11/21 10:08 Insulin Lispro 100 Unit/Ml SUB-Q Not Given ACHS [facility] [place] Protocol Isosorbide Mononitrate 30 mg 09/09/21 10:00 09/11/21 10:10 Isosorbide Mononitrate Er 30 Mg Tab PO 30 mg QDAY SHRUTI Administration Nifedipine 30 mg 09/09/21 10:00 09/11/21 10:10 Nifedipine Xl 30 Mg Tab PO 30 mg QDAY SHRUTI Administration Oxycodone/Acetaminophen 1 tab 09/08/21 18:05 09/11/21 10:10 Oxycodone /Acetaminophen 5-325mg Tab PO 1 tab Q6H PRN Administration Pain, Moderate (4-6) Pantoprazole Sodium 20 mg 09/10/21 07:30 09/11/21 10:10 Pantoprazole 20 Mg Tab PO 20 mg QDAC SHRUTI Administration Pentoxifylline 400 mg 09/11/21 10:00 09/11/21 10:10 Pentoxifylline Er 400 Mg Tab PO 400 mg DAILY SHRUTI Administration Sodium Chloride 10 ml 09/08/21 22:00 09/11/21 10:11 Sodium Chloride 0.9% 10 Ml Flush Syringe IV 10 ml BID SHRUTI Administration Sodium Chloride 10 ml 09/08/21 18:05 Sodium Chloride 0.9% 10 Ml Flush Syringe IV PRN PRN LINE FLUSH Nutrition/Malnutrition Assess - Dietary Evaluation Nutrition/Malnutrition Findings: Nutrition Notes Start: 09/09/21 17:01 Freq: Status: Active Protocol: Document 09/10/21 16:52 ASHLI (Rec: 09/10/21 17:02 ASHLI [id number]) Nutrition Notes Initial or Follow up Brief Note Current Diagnosis CKD (stage V CKD),Diabetes, Sepsis,Hypertension Other Pertinent Diagnosis ESRD+HD, PVD, R-Foot Ischemia, L-LE Gangrene, Anasarca, Leukocytosis... Current Diet NPO (09/10 00:01). Height 5 ft Weight 72.4 kg Vincent Body Weight (kg) 45.45 BMI 31.1 Weight change and time frame No body weight change reported in 1 day. Weight Status Obese Subjective/Other Information RD consult for nutrition education assessment. Pt currently on NPO. Paracentesis performed on , well tolerated, according to Progress notes. Procedure planned for 09/10: L -IBIS DOLAN, according to Consultation note. Pt still in critical condition , not a candidate for Nutrition Education at the time, will assess feasibility on F/U. Percent of energy/protein needs met: Pt currently on NPO. Nutrition Intervention Follow-Up By: 09/16/21 Additional Comments When pertinent continue monitoring food tolerance, %PO intake of meals, and BM. <AMADEO TORIBIO - Last Filed: 09/12/21 10:01> Assessment and Plan Assessment and plan: I saw and evaluated the patient. I agree with the findings and the plan of care as documented in the Nurse Practitioner's~note, with the following corrections and additions. Hospitalist Physical - Constitutional Vitals: Temp Pulse Resp BP Pulse Ox 99.1 F 61 15 94/48 99 09/12/21 07:36 09/12/21 07:36 09/12/21 07:36 09/12/21 07:36 09/12/21 07:36 Results - Labs CBC & Chem 7: 09/12/21 04:18 09/12/21 04:18 Labs: Laboratory Last Values WBC 10.0 K/mm3 (4.5-11.0) 09/12/21 04:18 RBC 3.42 M/mm3 (3.65-5.03) L 09/12/21 04:18 Hgb 8.6 gm/dl (10.1-14.3) L 09/12/21 04:18 Hct 27.8 % (30.3-42.9) L 09/12/21 04:18 MCV 81 fl (79-97) 09/12/21 04:18 MCH 25 pg (28-32) L 09/12/21 04:18 MCHC 31 % (30-34) 09/12/21 04:18 RDW 24.6 % (13.2-15.2) H 09/12/21 04:18 Plt Count 365 K/mm3 (140-440) 09/12/21 04:18 Add Manual Diff Complete 09/09/21 04:41 Total Counted 100 09/09/21 04:41 Seg Neutrophils % Construction Rep 09/09/21 04:41 Seg Neuts % (Manual) 96.0 % (40.0-70.0) H 09/09/21 04:41 Band Neutrophils % 0 % 09/09/21 04:41 Lymphocytes % (Manual) 3.0 % (13.4-35.0) L 09/09/21 04:41 Reactive Lymphs % (Man) 0 % 09/09/21 04:41 Monocytes % (Manual) 1.0 % (0.0-7.3) 09/09/21 04:41 Eosinophils % (Manual) 0 % (0.0-4.3) 09/09/21 04:41 Basophils % (Manual) 0 % (0.0-1.8) 09/09/21 04:41 Metamyelocytes % 0 % 09/09/21 04:41 Myelocytes % 0 % 09/09/21 04:41 Promyelocytes % 0 % 09/09/21 04:41 Blast Cells % 0 % 09/09/21 04:41 Nucleated RBC % 1.0 % (0.0-0.9) H 09/09/21 04:41 Seg Neutrophils # Man 25.0 K/mm3 (1.8-7.7) H 09/09/21 04:41 Band Neutrophils # 0.0 K/mm3 09/09/21 04:41 Lymphocytes # (Manual) 0.8 K/mm3 (1.2-5.4) L 09/09/21 04:41 Abs React Lymphs (Man) 0.0 K/mm3 09/09/21 04:41 Monocytes # (Manual) 0.3 K/mm3 (0.0-0.8) 09/09/21 04:41 Eosinophils # (Manual) 0.0 K/mm3 (0.0-0.4) 09/09/21 04:41 Basophils # (Manual) 0.0 K/mm3 (0.0-0.1) 09/09/21 04:41 Metamyelocytes # 0.0 K/mm3 09/09/21 04:41 Myelocytes # 0.0 K/mm3 09/09/21 04:41 Promyelocytes # 0.0 K/mm3 09/09/21 04:41 Blast Cells # 0.0 K/mm3 09/09/21 04:41 WBC Morphology Not Reportable 09/09/21 04:41 Hypersegmented Neuts Not Reportable 09/09/21 04:41 Hyposegmented Neuts Not Reportable 09/09/21 04:41 Hypogranular Neuts Not Reportable 09/09/21 04:41 Smudge Cells Not Reportable 09/09/21 04:41 Toxic Granulation Not Reportable 09/09/21 04:41 Toxic Vacuolation Not Reportable 09/09/21 04:41 Dohle Bodies Not Reportable 09/09/21 04:41 Pelger-Huet Anomaly Not Reportable 09/09/21 04:41 Cosme Rods Not Reportable 09/09/21 04:41 Platelet Estimate Consistent w auto 09/09/21 04:41 Clumped Platelets Not Reportable 09/09/21 04:41 Plt Clumps, EDTA Not Reportable 09/09/21 04:41 Large Platelets Not Reportable 09/09/21 04:41 Giant Platelets Not Reportable 09/09/21 04:41 Platelet Satelliting Not Reportable 09/09/21 04:41 Plt Morphology Comment Not Reportable 09/09/21 04:41 RBC Morphology Not Reportable 09/09/21 04:41 Dimorphic RBCs Not Reportable 09/09/21 04:41 Polychromasia Not Reportable 09/09/21 04:41 Hypochromasia 2+ 09/09/21 04:41 Poikilocytosis 1+ 09/09/21 04:41 Anisocytosis 2+ 09/09/21 04:41 Microcytosis Not Reportable 09/09/21 04:41 Macrocytosis Not Reportable 09/09/21 04:41 Spherocytes Not Reportable 09/09/21 04:41 Pappenheimer Bodies Not Reportable 09/09/21 04:41 Sickle Cells Not Reportable 09/09/21 04:41 Target Cells Not Reportable 09/09/21 04:41 Tear Drop Cells Not Reportable 09/09/21 04:41 Ovalocytes Rare 09/09/21 04:41 Helmet Cells Not Reportable 09/09/21 04:41 [place]-Prim[place]har Bodies Not Reportable 09/09/21 04:41 [place] Rings Not Reportable 09/09/21 04:41 Angelina Cells Not Reportable 09/09/21 04:41 Bite Cells Not Reportable 09/09/21 04:41 Crenated Cell Not Reportable 09/09/21 04:41 Elliptocytes Few 09/09/21 04:41 Acanthocytes (Spur) Few 09/09/21 04:41 Rouleaux Not Reportable 09/09/21 04:41 Hemoglobin C Crystals Not Reportable 09/09/21 04:41 Schistocytes Not Reportable 09/09/21 04:41 Malaria parasites Not Reportable 09/09/21 04:41 Jozef Bodies Not Reportable 09/09/21 04:41 Hem Pathologist Commnt No 09/09/21 04:41 PT 19.1 Sec. (12.2-14.9) H 09/08/21 15:56 INR 1.42 (0.87-1.13) H 09/08/21 15:56 APTT 37.7 Sec. (24.2-36.6) H 09/08/21 15:56 Sodium 138 mmol/L (137-145) 09/12/21 04:18 Potassium 4.3 mmol/L (3.6-5.0) 09/12/21 04:18 Chloride 99.9 mmol/L (98-107) 09/12/21 04:18 Carbon Dioxide 24 mmol/L (22-30) 09/12/21 04:18 Anion Gap 18 mmol/L 09/12/21 04:18 BUN 32 mg/dL (7-17) H 09/12/21 04:18 Creatinine 4.7 mg/dL (0.6-1.2) H 09/12/21 04:18 Estimated GFR 12 ml/min 09/12/21 04:18 BUN/Creatinine Ratio 7 % 09/12/21 04:18 Glucose 97 mg/dL (65-100) 09/12/21 04:18 POC Glucose 111 mg/dL (70-105) H 09/12/21 07:42 Lactic Acid 1.40 mmol/L (0.7-2.0) 09/09/21 04:41 Calcium 8.4 mg/dL (8.4-10.2) 09/12/21 04:18 Total Bilirubin 1.60 mg/dL (0.1-1.2) H 09/09/21 04:41 Direct Bilirubin 0.4 mg/dL (0-0.2) H 09/08/21 15:56 Indirect Bilirubin 0.1 mg/dL 09/08/21 15:56 AST 14 units/L (5-40) 09/09/21 04:41 ALT 7 units/L (7-56) 09/09/21 04:41 Alkaline Phosphatase 170 units/L (35-129) H 09/09/21 04:41 Ammonia 19.0 umol/L (25-60) L 09/08/21 15:56 Total Creatine Kinase 77 units/L (30-135) 09/08/21 15:56 Total Protein 7.3 g/dL (6.3-8.2) 09/09/21 04:41 Albumin 2.5 g/dL (3.9-5) L 09/09/21 04:41 Albumin/Globulin Ratio 0.5 % 09/09/21 04:41 Nasal Screen MRSA (PCR) Positive (Negative) 09/08/21 05:30 Random Vancomycin 10.4 ug/mL (0-40.0) 09/11/21 04:27 Blood Type A POSITIVE 09/08/21 20:40 Antibody Screen Negative 09/08/21 20:40 Crossmatch See Detail 09/08/21 20:40 Microbiology: Microbiology 09/08/21 15:56 Peripheral/Venous Blood Culture - Preliminary NO GROWTH AFTER 72 HOURS 09/08/21 15:56 Peripheral/Venous Blood Culture - Preliminary NO GROWTH AFTER 72 HOURS Active Medications - Current Medications Current Medications: Generic Name Dose Route Start Last Admin Trade Name Freq PRN Reason Stop Dose Admin Acetaminophen 650 mg 09/08/21 18:05 09/12/21 00:01 Acetaminophen 325 Mg Tab PO 650 mg Q6H PRN Administration Pain, Mild (1-3) Acetaminophen 650 mg 09/08/21 18:05 Acetaminophen 650 Mg Rect Supp [place] Q6H PRN Pain MILD(1-3)/Fever >100.5/PALOMINO Carvedilol 12.5 mg 09/09/21 10:00 09/12/21 00:02 Carvedilol 12.5 Mg Tab PO 12.5 mg Q12HR SHRUTI Administration Clopidogrel Bisulfate 75 mg 09/11/21 10:00 09/11/21 10:10 Clopidogrel 75 Mg Tab PO 75 mg QDAY SHRUTI Administration Dextrose 50 ml 09/09/21 18:00 Dextrose 50% In Water (25gm) 50 Ml Syringe IV Q30MIN PRN Hypoglycemia Protocol Epoetin Darío-epbx 10,000 unit 09/11/21 12:00 09/11/21 23:15 Epoetin Darío-Epbx 10,000 Unit/1 Ml Vial SUB-Q 10,000 unit KEV SHRUTI Administration Hydromorphone HCl 0.5 mg 09/09/21 10:30 09/12/21 05:24 Hydromorphone 0.5 Mg/0.5 Ml Inj IV 0.5 mg Q4H PRN Administration Pain , Severe (7-10) Levofloxacin/Dextrose 500 mg in 100 mls @ 66.667 mls/hr 09/11/21 10:00 09/11/21 10:09 Levaquin 500mg/100ml IV 66.667 mls/hr Q48HR SHRUTI Administration Protocol Sodium Chloride 100 mls @ 999 mls/hr 09/09/21 10:30 Nacl 0.9% IV KEV PRN Hypotension Vancomycin HCl 1 gm in 250 mls @ 167.007 mls/hr 09/11/21 22:00 09/12/21 00:42 Vancomycin/Ns 1 Gm/250 Ml IV 167.007 mls/hr TuThSa SHRUTI Administration Insulin Human Lispro 0 unit 09/09/21 22:00 09/12/21 08:02 Insulin Lispro 100 Unit/Ml SUB-Q Not Given ACHS [facility] [place] Protocol Isosorbide Mononitrate 30 mg 09/09/21 10:00 09/11/21 10:10 Isosorbide Mononitrate Er 30 Mg Tab PO 30 mg QDAY SHRUTI Administration Nifedipine 30 mg 09/09/21 10:00 09/11/21 10:10 Nifedipine Xl 30 Mg Tab PO 30 mg QDAY SHRUTI Administration Oxycodone/Acetaminophen 1 tab 09/08/21 18:05 09/12/21 02:22 Oxycodone /Acetaminophen 5-325mg Tab PO 1 tab Q6H PRN Administration Pain, Moderate (4-6) Pantoprazole Sodium 20 mg 09/10/21 07:30 09/11/21 10:10 Pantoprazole 20 Mg Tab PO 20 mg QDAC SHRUTI Administration Pentoxifylline 400 mg 09/11/21 10:00 09/11/21 10:10 Pentoxifylline Er 400 Mg Tab PO 400 mg DAILY SHRUTI Administration Sodium Chloride 10 ml 09/08/21 22:00 09/12/21 00:32 Sodium Chloride 0.9% 10 Ml Flush Syringe IV Not Given BID SHRUTI Sodium Chloride 10 ml 09/08/21 18:05 Sodium Chloride 0.9% 10 Ml Flush Syringe IV PRN PRN LINE FLUSH Nutrition/Malnutrition Assess - Dietary Evaluation Nutrition/Malnutrition Findings: Nutrition Notes Start: 09/09/21 17:01 Freq: Status: Active Protocol: Document 09/10/21 16:52 ASHLI (Rec: 09/10/21 17:02 ASHLI [id number]) Nutrition Notes Initial or Follow up Brief Note Current Diagnosis CKD (stage V CKD),Diabetes, Sepsis,Hypertension Other Pertinent Diagnosis ESRD+HD, PVD, R-Foot Ischemia, L-LE Gangrene, Anasarca, Leukocytosis... Current Diet NPO (09/10 00:01). Height 5 ft Weight 72.4 kg Vincent Body Weight (kg) 45.45 BMI 31.1 Weight change and time frame No body weight change reported in 1 day. Weight Status Obese Subjective/Other Information RD consult for nutrition education assessment. Pt currently on NPO. Paracentesis performed on , well tolerated, according to Progress notes. Procedure planned for 09/10: L -LE BKA, according to Consultation note. Pt still in critical condition , not a candidate for Nutrition Education at the time, will assess feasibility on F/U. Percent of energy/protein needs met: Pt currently on NPO. Nutrition Intervention Follow-Up By: 09/16/21 Additional Comments When pertinent continue monitoring food tolerance, %PO intake of meals, and BM.
--- NOTE | 2021-09-11 11:04 | Progress Note ---
Assessment and Plan Patient doing well following her left BKA. From a vascular point of view, the patient may be moved to the floor. She will need physical therapy prior to discharge home. We will change her dressing tomorrow. Subjective Date of service: 09/11/21 Principal diagnosis: ESRD Interval history: Patient is postop day 1 status post left BKA. Patient at her baseline mental status. No complaints of any significant pain. No significant drainage. Objective - Constitutional Vitals: Vital Signs - 12hr 09/11/21 09/11/21 09/11/21 00:00 01:00 02:00 Temperature Pulse Rate 66 65 68 Pulse Rate [ Apical] Respiratory 13 12 12 Rate Blood Pressure 162/69 148/72 150/67 O2 Sat by Pulse 100 100 100 Oximetry 09/11/21 09/11/21 09/11/21 03:00 04:00 05:00 Temperature 97.6 F Pulse Rate 63 60 63 Pulse Rate [ 80 Apical] Respiratory 12 12 12 Rate Blood Pressure 158/70 147/65 157/68 O2 Sat by Pulse 100 100 100 Oximetry 09/11/21 09/11/21 09/11/21 06:00 07:00 08:00 Temperature 97.8 F Pulse Rate 63 57 L 64 Pulse Rate [ 60 Apical] Respiratory 12 10 L 12 Rate Blood Pressure 150/67 153/65 127/58 O2 Sat by Pulse 98 100 Oximetry 09/11/21 10:10 Temperature Pulse Rate 64 Pulse Rate [ Apical] Respiratory Rate Blood Pressure 155/64 O2 Sat by Pulse Oximetry General appearance: Present: no acute distress - EENT Eyes: EOM intact ENT: hearing intact - Neck Neck: supple, normal ROM - Respiratory Respiratory effort: normal Extremities: abnormal (Left BKA) - Gastrointestinal General gastrointestinal: Present: deferred Rectal Exam: deferred - Genitourinary Female genitourinary: deferred - Psychiatric Psychiatric: cooperative - Labs CBC & Chem 7: 09/11/21 04:27 09/11/21 04:27 Labs: Abnormal lab results 09/10/21 09/11/21 09/11/21 Range/Units 21:01 04:27 04:27 WBC 14.7 H (4.5-11.0) K/mm3 RBC 3.25 L (3.65-5.03) M/mm3 Hgb 8.3 L (10.1-14.3) gm/dl Hct 26.4 L D (30.3-42.9) % MCH 26 L (28-32) pg RDW 24.2 H (13.2-15.2) % Sodium 134 L (137-145) mmol/L Chloride 97.6 L (98-107) mmol/L Carbon Dioxide 21 L (22-30) mmol/L BUN 59 H (7-17) mg/dL Creatinine 7.1 H (0.6-1.2) mg/dL POC Glucose 115 H (70-105) mg/dL Calcium 8.3 L (8.4-10.2) mg/dL Medications & Allergies - Medications Allergies/Adverse Reactions: Allergies No Known Allergies Allergy (Verified 09/08/21 14:34) Home Medications: Home Medications Medication Instructions Recorded Confirmed Last Taken Type Acetaminophen [Acetaminophen TAB] 650 mg PO Q4H PRN tablet 04/01/21 09/09/21 07/06/21 Rx Pentoxifylline 400 mg PO DAILY #90 06/24/21 09/09/21 09/08/21 09:00 Rx Apixaban [Eliquis] 2.5 mg PO BID #180 07/07/21 09/09/21 09/08/21 09:00 Rx ALPRAZolam [Xanax TAB] 0.25 mg PO Q8H PRN #12 tablet 08/15/21 09/09/21 09/08/21 09:00 Rx Clopidogrel [Plavix] 75 mg PO QDAY #90 tablet 08/15/21 09/09/21 09/08/21 09:00 Rx Furosemide [Lasix TAB] 20 mg PO QDAY #30 tablet 08/15/21 09/09/21 09/08/21 09:00 Rx ISOSORBIDE MONOnitrate [Imdur ER] 30 mg PO QDAY #30 tablet 08/15/21 09/09/21 09:00 Rx Pantoprazole [Protonix TAB] 20 mg PO QDAC tablet. 08/15/21 09/09/21 09/08/21 09:00 Rx Valsartan [Diovan] 80 mg PO QDAY 30 Days #30 tab 08/15/21 09/09/21 09/08/21 09:00 Rx carvediloL [Coreg] 25 mg PO Q12HR #60 tablet 08/15/21 09/09/21 09/09/21 09:00 Rx sevelamer HCL [Sevelamer HCl] 800 mg PO TID 30 Days #90 tab 08/15/21 09/09/21 09/08/21 09:00 Rx oxyCODONE /ACETAMINOPHEN [Percocet 1 tab PO Q4H PRN 5 Days #30 tablet 08/29/21 09/09/21 09/08/21 09:00 Rx 5/325 mg] NIFEdipine XL [Procardia Xl] 30 mg PO Q12HR #60 tablet 09/11/21 Unknown Rx Active Medications: Generic Name Dose Route Start Last Admin Trade Name Freq PRN Reason Stop Dose Admin Acetaminophen 650 mg 09/08/21 18:05 Acetaminophen 325 Mg Tab PO Q6H PRN Pain, Mild (1-3) Acetaminophen 650 mg 09/08/21 18:05 Acetaminophen 650 Mg Rect Supp [place] Q6H PRN Pain MILD(1-3)/Fever >100.5/PALOMINO Carvedilol 12.5 mg 09/09/21 10:00 09/11/21 10:10 Carvedilol 12.5 Mg Tab PO 12.5 mg Q12HR SHRUTI Administration Clopidogrel Bisulfate 75 mg 09/11/21 10:00 09/11/21 10:10 Clopidogrel 75 Mg Tab PO 75 mg QDAY SHRUTI Administration Dextrose 50 ml 09/09/21 18:00 Dextrose 50% In Water (25gm) 50 Ml Syringe IV Q30MIN PRN Hypoglycemia Protocol Epoetin Darío-epbx 10,000 unit 09/11/21 12:00 Epoetin Darío-Epbx 10,000 Unit/1 Ml Vial SUB-Q KEV SHRUTI Fentanyl 50 mcg 09/10/21 19:57 Fentanyl 100 Mcg/2 Ml Inj IV 09/11/21 19:56 Q5MIN PRN Pain , Severe (7-10) Hydromorphone HCl 0.5 mg 09/09/21 10:30 09/11/21 06:22 Hydromorphone 0.5 Mg/0.5 Ml Inj IV 0.5 mg Q4H PRN Administration Pain , Severe (7-10) Levofloxacin/Dextrose 500 mg in 100 mls @ 66.667 mls/hr 09/11/21 10:00 09/11/21 10:09 Levaquin 500mg/100ml IV 66.667 mls/hr Q48HR SHRUTI Administration Protocol Sodium Chloride 100 mls @ 999 mls/hr 09/09/21 10:30 Nacl 0.9% IV KEV PRN Hypotension Dextrose/Sodium Chloride 1,000 mls @ 75 mls/hr 09/09/21 18:00 09/11/21 01:55 D5/0.45ns IV 75 mls/hr DIRECT SHRUTI Administration Vancomycin HCl 1 gm in 250 mls @ 167.007 mls/hr 09/11/21 22:00 Vancomycin/Ns 1 Gm/250 Ml IV TuThSa SHRUTI Insulin Human Lispro 0 unit 09/09/21 22:00 09/11/21 10:08 Insulin Lispro 100 Unit/Ml SUB-Q Not Given ACHS SHRUTI Protocol Isosorbide Mononitrate 30 mg 09/09/21 10:00 09/11/21 10:10 Isosorbide Mononitrate Er 30 Mg Tab PO 30 mg QDAY SHRUTI Administration Nifedipine 30 mg 09/09/21 10:00 09/11/21 10:10 Nifedipine Xl 30 Mg Tab PO 30 mg QDAY SHRUTI Administration Oxycodone/Acetaminophen 1 tab 09/08/21 18:05 09/11/21 10:10 Oxycodone /Acetaminophen 5-325mg Tab PO 1 tab Q6H PRN Administration Pain, Moderate (4-6) Pantoprazole Sodium 20 mg 09/10/21 07:30 09/11/21 10:10 Pantoprazole 20 Mg Tab PO 20 mg QDAC SHRUTI Administration Pentoxifylline 400 mg 09/11/21 10:00 09/11/21 10:10 Pentoxifylline Er 400 Mg Tab PO 400 mg DAILY SHRUTI Administration Sodium Chloride 10 ml 09/08/21 22:00 09/11/21 10:11 Sodium Chloride 0.9% 10 Ml Flush Syringe IV 10 ml BID SHRUTI Administration Sodium Chloride 10 ml 09/08/21 18:05 Sodium Chloride 0.9% 10 Ml Flush Syringe IV PRN PRN LINE FLUSH
--- NOTE | 2021-09-11 17:17 | Progress Note ---
Assessment and Plan - Patient Problems (1) ESRD needing dialysis Current Visit: Yes Status: Chronic Plan to address problem: cont HD on TTS schedule for correction of hyperkalemia, solute clearance and volume control (2) Sepsis Current Visit: Yes Status: Acute Plan to address problem: on sepsis protocol, cont empiric ABXs with IV vanco, zosyn, levaquin. please ensure meds are dosed for HD. Possible superinfection to her chronic ischemic gangrene, follow ID/vascular surgery recommendations (3) Hyperkalemia Current Visit: Yes Status: Acute (4) Acute on chronic anemia Current Visit: Yes Status: Acute Plan to address problem: s/p 2PRBC transfusion, target Hb > 7. 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 disease or end stage renal disease Current Visit: No Status: Acute Plan to address problem: monitor BP on current meds (6) Type 2 diabetes mellitus with diabetic chronic kidney disease Current Visit: No Status: Acute Plan to address problem: diabetes management as per primary attending (7) Peripheral vascular disease Current Visit: Yes Status: Acute Plan to address problem: appreciate vacsular surgery recommendations, s/p Left below-knee amputation Subjective Date of service: 09/11/21 Principal diagnosis: ESRD Interval history: Patient seen in the IMCU, awake, alert, in no acute distress. s/p Left below- knee amputation Objective - Vital Signs Vital signs: Vital Signs - 12hr 09/11/21 09/11/21 09/11/21 06:00 07:00 08:00 Temperature 97.8 F Pulse Rate 63 57 L 64 Pulse Rate [ 60 Apical] Respiratory 12 10 L 12 Rate Blood Pressure 150/67 153/65 127/58 O2 Sat by Pulse 98 100 Oximetry 09/11/21 09/11/21 09/11/21 09:00 10:00 10:10 Temperature Pulse Rate 64 63 64 Pulse Rate [ Apical] Respiratory 12 9 L Rate Blood Pressure 145/64 155/64 155/64 O2 Sat by Pulse 100 99 Oximetry 09/11/21 09/11/21 09/11/21 11:00 11:01 12:00 Temperature 98.1 F Pulse Rate 65 64 Pulse Rate [ 64 Apical] Respiratory 12 10 L Rate Blood Pressure 155/64 146/62 O2 Sat by Pulse 100 98 Oximetry 09/11/21 13:00 Temperature Pulse Rate 60 Pulse Rate [ Apical] Respiratory 13 Rate Blood Pressure 151/73 O2 Sat by Pulse Oximetry - General Appearance General appearance: well-developed, well-nourished, appears stated age EENT: ATNC, PERRL, mucous membranes moist Neck: no JVD Respiratory: Present: Clear to Ascultation Cardiology: regular, S1S2 Gastrointestinal: normoactive bowel sounds Integumentary: no rash, other (s/p L BKA) Neurologic: no focal deficit, alert and oriented x3, strength 5/5, CN 3-12 intact Psychiatric: mood/affect appropriate, cooperative - Lab 09/11/21 04:27 09/11/21 04:27 Most recent lab results Calcium 8.3 mg/dL (8.4-10.2) L 09/11/21 04:27 Medications & Allergies - Medications Allergies/Adverse Reactions: Allergies No Known Allergies Allergy (Verified 09/08/21 14:34) Home Medications: Home Medications Medication Instructions Recorded Confirmed Last Taken Type Acetaminophen [Acetaminophen TAB] 650 mg PO Q4H PRN tablet 04/01/21 09/09/21 07/06/21 Rx Pentoxifylline 400 mg PO DAILY #90 06/24/21 09/09/21 09/08/21 09:00 Rx Apixaban [Eliquis] 2.5 mg PO BID #180 07/07/21 09/09/21 09/08/21 09:00 Rx ALPRAZolam [Xanax TAB] 0.25 mg PO Q8H PRN #12 tablet 08/15/21 09/09/21 09/08/21 09:00 Rx Clopidogrel [Plavix] 75 mg PO QDAY #90 tablet 08/15/21 09/09/21 09/08/21 09:00 Rx Furosemide [Lasix TAB] 20 mg PO QDAY #30 tablet 08/15/21 09/09/21 09/08/21 09:00 Rx ISOSORBIDE MONOnitrate [Imdur ER] 30 mg PO QDAY #30 tablet 08/15/21 09/09/21 09/08/21 09:00 Rx Pantoprazole [Protonix TAB] 20 mg PO QDAC tablet. 08/15/21 09/09/21 09/08/21 09:00 Rx Valsartan [Diovan] 80 mg PO QDAY 30 Days #30 tab 08/15/21 09/09/21 09/08/21 09:00 Rx carvediloL [Coreg] 25 mg PO Q12HR #60 tablet 08/15/21 09/09/21 09/09/21 09:00 Rx sevelamer HCL [Sevelamer HCl] 800 mg PO TID 30 Days #90 tab 08/15/21 09/09/21 09/08/21 09:00 Rx oxyCODONE /ACETAMINOPHEN [Percocet 1 tab PO Q4H PRN 5 Days #30 tablet 08/29/21 09/09/21 09/08/21 09:00 Rx 5/325 mg] NIFEdipine XL [Procardia Xl] 30 mg PO Q12HR #60 tablet 09/11/21 Unknown Rx Active Medications: Generic Name Dose Route Start Last Admin Trade Name Freq PRN Reason Stop Dose Admin Acetaminophen 650 mg 09/08/21 18:05 Acetaminophen 325 Mg Tab PO Q6H PRN Pain, Mild (1-3) Acetaminophen 650 mg 09/08/21 18:05 Acetaminophen 650 Mg Rect Supp [place] Q6H PRN Pain MILD(1-3)/Fever >100.5/PALOMINO Carvedilol 12.5 mg 09/09/21 10:00 09/11/21 10:10 Carvedilol 12.5 Mg Tab PO 12.5 mg Q12HR SHRUTI Administration Clopidogrel Bisulfate 75 mg 09/11/21 10:00 09/11/21 10:10 Clopidogrel 75 Mg Tab PO 75 mg QDAY SHRUTI Administration Dextrose 50 ml 09/09/21 18:00 Dextrose 50% In Water (25gm) 50 Ml Syringe IV Q30MIN PRN Hypoglycemia Protocol Epoetin Darío-epbx 10,000 unit 09/11/21 12:00 Epoetin Darío-Epbx 10,000 Unit/1 Ml Vial SUB-Q KEV SHRUTI Fentanyl 50 mcg 09/10/21 19:57 Fentanyl 100 Mcg/2 Ml Inj IV 09/11/21 19:56 Q5MIN PRN Pain , Severe (7-10) Hydromorphone HCl 0.5 mg 09/09/21 10:30 09/11/21 12:49 Hydromorphone 0.5 Mg/0.5 Ml Inj IV 0.5 mg Q4H PRN Administration Pain , Severe (7-10) Levofloxacin/Dextrose 500 mg in 100 mls @ 66.667 mls/hr 09/11/21 10:00 09/11/21 10:09 Levaquin 500mg/100ml IV 66.667 mls/hr Q48HR SHRUTI Administration Protocol Sodium Chloride 100 mls @ 999 mls/hr 09/09/21 10:30 Nacl 0.9% IV KEV PRN Hypotension Dextrose/Sodium Chloride 1,000 mls @ 75 mls/hr 09/09/21 18:00 09/11/21 10:45 D5/0.45ns IV 0 mls/hr DIRECT SHRUTI Infusion Vancomycin HCl 1 gm in 250 mls @ 167.007 mls/hr 09/11/21 22:00 Vancomycin/Ns 1 Gm/250 Ml IV TuThSa SHRUTI Insulin Human Lispro 0 unit 09/09/21 22:00 09/11/21 13:43 Insulin Lispro 100 Unit/Ml SUB-Q Not Given ACHS [facility] Protocol Isosorbide Mononitrate 30 mg 09/09/21 10:00 09/11/21 10:10 Isosorbide Mononitrate Er 30 Mg Tab PO 30 mg QDAY SHRUTI Administration Nifedipine 30 mg 09/09/21 10:00 09/11/21 10:10 Nifedipine Xl 30 Mg Tab PO 30 mg QDAY SHRUTI Administration Oxycodone/Acetaminophen 1 tab 09/08/21 18:05 09/11/21 10:10 Oxycodone /Acetaminophen 5-325mg Tab PO 1 tab Q6H PRN Administration Pain, Moderate (4-6) Pantoprazole Sodium 20 mg 09/10/21 07:30 09/11/21 10:10 Pantoprazole 20 Mg Tab PO 20 mg QDAC SHRUTI Administration Pentoxifylline 400 mg 09/11/21 10:00 09/11/21 10:10 Pentoxifylline Er 400 Mg Tab PO 400 mg DAILY SHRUTI Administration Sodium Chloride 10 ml 09/08/21 22:00 09/11/21 10:11 Sodium Chloride 0.9% 10 Ml Flush Syringe IV 10 ml BID SHRUTI Administration Sodium Chloride 10 ml 09/08/21 18:05 Sodium Chloride 0.9% 10 Ml Flush Syringe IV PRN PRN LINE FLUSH
--- NOTE | 2021-09-11 18:46 | Electrocardiograph Report ---
[facility] Test Date: 2021-09-08 Test Time: 14:59:03 Pat Name: MARIE HUTTON Department: Room: A264 1 Gender: F Statistical Modeler: NURSE : 1965 Requested By: EMILIANO ROSARIO Order Number: [id number] Reading MD: Mary Jane Wu Measurements Intervals [place] Rate: 84 P: 11 [place]: 159 QRS: 13 QRSD: 83 T: 117 QT: 366 QTc: 433 Interpretive Statements Sinus rhythm Left ventricular hypertrophy Nonspecific T abnormalities, lateral leads Compared to ECG 08/28/2021 07:23:17 No significant changes Electronically Signed On 09-11-2021 18:45:52 EDT by Mary Jane Wu
[2021-09-11] MEDS: EPOETIN ALFA-EPBX 10,000 UNIT/1 ML VIAL SUB-Q SCH (23:15)
[2021-09-12] MEDS: HYDROmorphone 0.5 MG/0.5 ML INJ IV PRN ×4 (00:02→23:06)
[2021-09-12] MEDS: carvediloL 12.5 MG TAB PO SCH ×3 (00:02→21:34)
[2021-09-12] MEDS: INSULIN LISPRO 100 UNIT/ML SUB-Q SCH ×5 (00:31→21:33)
[2021-09-12] MEDS: VANCOMYCIN/NS 1 GM/250 ML 1 GM/250 ML BAG IV SCH (00:42)
[2021-09-12] MEDS: oxyCODONE /ACETAMINOPHEN 5-325MG TAB PO PRN (02:22)
[2021-09-12 04:47] LABS: Hematocrit 27.8 % (30.3-42.9); Hemoglobin 8.6 gm/dl (10.1-14.3); Mean Corpuscular HGB Conc 31 % (30-34); Mean Corpuscular Volume 81 fl (79-97); Platelet Count 365 K/mm3 (140-440); Red Blood Count 3.42 M/mm3 (3.65-5.03)
[2021-09-12 04:55] LABS: Red Cell Distribution Width 24.6 % (13.2-15.2)
[2021-09-12 05:03] LABS: Calcium 8.4 mg/dL (8.4-10.2)
[2021-09-12] MEDS: PANTOPRAZOLE 20 MG TAB PO SCH (10:48)
[2021-09-12] MEDS: CLOPIDOGREL 75 MG TAB PO SCH (10:50)
[2021-09-12] MEDS: NIFEdipine XL 30 MG TAB PO SCH (10:50)
--- NOTE | 2021-09-12 11:09 | Progress Note ---
Subjective Date of service: 09/12/21 Principal diagnosis: ESRD Interval history: Afebrile, white count now normal. Blood cultures remain negative. Objective - Constitutional Vitals: Vital Signs Temp Pulse Resp BP Pulse Ox 99.1 F 61 15 94/48 99 09/12/21 07:36 09/12/21 10:51 09/12/21 07:36 09/12/21 10:51 09/12/21 07:36 Temperature -Last 24 Hours Temperature 99.1 F Temperature 97.9 F Temperature 97.2 F Temperature 97.6 F Temperature 97.6 F Temperature 98.4 F - Labs CBC & Chem 7: 09/12/21 04:18 09/12/21 04:18 Labs: Abnormal lab results 09/12/21 09/12/21 09/12/21 Range/Units 04:18 04:18 07:42 RBC 3.42 L (3.65-5.03) M/mm3 Hgb 8.6 L (10.1-14.3) gm/dl Hct 27.8 L (30.3-42.9) % MCH 25 L (28-32) pg RDW 24.6 H (13.2-15.2) % BUN 32 H (7-17) mg/dL Creatinine 4.7 H (0.6-1.2) mg/dL POC Glucose 111 H (70-105) mg/dL
--- NOTE | 2021-09-12 11:16 | Progress Note ---
Assessment and Plan Cultures: Blood culture no growth so far A/P: 56-year-old female past medical history ESRD on HD, diabetes, hypertension, PVD with chronic right lower extremity ischemia gangrene #Leukocytosis: has significant neutrophilic shift; unclear etiology. Possible superinfection to her chronic ischemic gangrene. #PVD with chronic gangrene: vascular had previously recommend amputation which she refused. #ESRD on HD: renally dose medications #Anasarca: with missed HD recently Recs: -Vancomycin goal trough 10-20 -Levaquin renally dosed -s/p BKA, which should be curative of infection. Her white count continues to respond, and her blood cultures remain negative. -Would continue antibiotics until 3 days post-operatively. White count has resolved, ok to DC without ABx. Thank you for the consult, we will sign off. Please call with questions. Anders Short MD [facility] O: [phone] F: [phone] Subjective Date of service: 09/12/21 Principal diagnosis: ESRD Interval history: Previous note signed in error. Please disregard. Afebrile, normal whtie count now. Doing well post-operatively./ Objective - Exam Narrative Exam: Physical Exam: Constitutional: Alert, cooperative. No acute distress Head, Ears, Nose: Normocephalic, atraumatic. External ears, nose normal Eyes: Conjunctivae/corneas clear. No icterus. No ptosis. Neck: Supple, no meningeal signs Oral: dentition fair, no thrush Cardiovascular: S1, S2 normal. Respiratory: Good air entry, clear to auscultation bilaterally GI: Soft, non-tender; bowel sounds normal. No peritoneal signs. Musculoskeletal: s/p R BKA Skin: No rash or abscess Hem/Lymphatic: No palpable cervical or supraclavicular nodes. No lymphangitis Psych: Mood ok. Affect normal Neurological: Awake, alert, oriented. No gross abnormality - Constitutional Vitals: Vital Signs Temp Pulse Resp BP Pulse Ox 99.1 F 61 15 94/48 99 09/12/21 07:36 09/12/21 10:51 09/12/21 07:36 09/12/21 10:51 09/12/21 07:36 Temperature -Last 24 Hours Temperature 99.1 F Temperature 97.9 F Temperature 97.2 F Temperature 97.6 F Temperature 97.6 F Temperature 98.4 F - Labs CBC & Chem 7: 09/12/21 04:18 09/12/21 04:18 Labs: Abnormal lab results 09/12/21 09/12/21 09/12/21 Range/Units 04:18 04:18 07:42 RBC 3.42 L (3.65-5.03) M/mm3 Hgb 8.6 L (10.1-14.3) gm/dl Hct 27.8 L (30.3-42.9) % MCH 25 L (28-32) pg RDW 24.6 H (13.2-15.2) % BUN 32 H (7-17) mg/dL Creatinine 4.7 H (0.6-1.2) mg/dL POC Glucose 111 H (70-105) mg/dL
--- NOTE | 2021-09-12 12:13 | Progress Note ---
Assessment and Plan - Patient Problems (1) ESRD needing dialysis Current Visit: Yes Status: Chronic Plan to address problem: cont HD on TTS schedule for correction of hyperkalemia, solute clearance and volume control (2) Sepsis Current Visit: Yes Status: Acute Plan to address problem: on sepsis protocol, cont empiric ABXs with IV vanco, zosyn, levaquin. please ensure meds are dosed for HD. Possible superinfection to her chronic ischemic gangrene, now s/p L BKA follow ID/vascular surgery recommendations (3) Hyperkalemia Current Visit: Yes Status: Acute Plan to address problem: corrected with HD. cont 2g K renal diet (4) Acute on chronic anemia Current Visit: Yes Status: Acute Plan to address problem: s/p 2PRBC transfusion, target Hb > 7. 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 disease or end stage renal disease Current Visit: No Status: Acute Plan to address problem: monitor BP on current meds (6) Type 2 diabetes mellitus with diabetic chronic kidney disease Current Visit: No Status: Acute Plan to address problem: diabetes management as per primary attending (7) Peripheral vascular disease Current Visit: Yes Status: Acute Plan to address problem: appreciate vacsular surgery recommendations, s/p Left below-knee amputation Subjective Date of service: 09/12/21 Principal diagnosis: ESRD Interval history: Patient seen at bedsid, awake, alert, in no acute distress, communicating in writing. s/p Left below-knee amputation Objective - Vital Signs Vital signs: Vital Signs - 12hr 09/12/21 09/12/21 09/12/21 02:22 04:11 07:36 Temperature 99.1 F Pulse Rate 85 61 Respiratory 20 21 15 Rate Blood Pressure 94/48 O2 Sat by Pulse 91 99 Oximetry 09/12/21 09/12/21 10:49 10:51 Temperature Pulse Rate 61 61 Respiratory Rate Blood Pressure 94/48 94/48 O2 Sat by Pulse Oximetry - General Appearance General appearance: well-developed, well-nourished, appears stated age EENT: ATNC, PERRL, mucous membranes moist Neck: no JVD Respiratory: Present: Clear to Ascultation Cardiology: regular, S1S2 Gastrointestinal: normoactive bowel sounds Integumentary: no rash, other (no edema, L BKA ) Neurologic: no focal deficit, alert and oriented x3, strength 5/5, CN 3-12 intact Psychiatric: mood/affect appropriate, cooperative - Lab 09/12/21 04:18 09/12/21 04:18 Most recent lab results Calcium 8.4 mg/dL (8.4-10.2) 09/12/21 04:18 Medications & Allergies - Medications Allergies/Adverse Reactions: Allergies No Known Allergies Allergy (Verified 09/08/21 14:34) Home Medications: Home Medications Medication Instructions Recorded Confirmed Last Taken Type Acetaminophen [Acetaminophen TAB] 650 mg PO Q4H PRN tablet 04/01/21 09/09/21 07/06/21 Rx Apixaban [Eliquis] 2.5 mg PO BID #180 07/07/21 09/09/21 09/08/21 09:00 Rx Furosemide [Lasix TAB] 20 mg PO QDAY #30 tablet 08/15/21 09/09/21 09/08/21 09:00 Rx ISOSORBIDE MONOnitrate [Imdur ER] 30 mg PO QDAY #30 tablet 08/15/21 09/09/21 09/08/21 09:00 Rx Pantoprazole [Protonix TAB] 20 mg PO QDAC tablet. 08/15/21 09/09/21 09/08/21 09:00 Rx Valsartan [Diovan] 80 mg PO QDAY 30 Days #30 tab 08/15/21 09/09/21 09/08/21 09:00 Rx carvediloL [Coreg] 25 mg PO Q12HR #60 tablet 08/15/21 09/09/21 09/09/21 09:00 Rx sevelamer HCL [Sevelamer HCl] 800 mg PO TID 30 Days #90 tab 08/15/21 09/09/21 09/08/21 09:00 Rx oxyCODONE /ACETAMINOPHEN [Percocet 1 tab PO Q4H PRN 5 Days #30 tablet 08/29/21 09/09/21 09/08/21 09:00 Rx 5/325 mg] NIFEdipine XL [Procardia Xl] 30 mg PO Q12HR #60 tablet 09/11/21 Unknown Rx ALPRAZolam [Xanax TAB] 0.25 mg PO Q8H PRN #12 tablet 09/12/21 Unknown Rx Clopidogrel [Plavix] 75 mg PO QDAY #90 tablet 09/12/21 Unknown Rx Lispro Insulin [HumaLOG] 0 unit SUB-Q ACHS units 09/12/21 Unknown Rx Pentoxifylline [TRENtal] 400 mg PO DAILY #90 tablet 09/12/21 Unknown Rx oxyCODONE /ACETAMINOPHEN [Percocet 1 tab PO Q6H PRN #10 tablet 09/12/21 Unknown Rx 5/325 mg] Active Medications: Generic Name Dose Route Start Last Admin Trade Name Freq PRN Reason Stop Dose Admin Acetaminophen 650 mg 09/08/21 18:05 09/12/21 00:01 Acetaminophen 325 Mg Tab PO 650 mg Q6H PRN Administration Pain, Mild (1-3) Acetaminophen 650 mg 09/08/21 18:05 Acetaminophen 650 Mg Rect Supp [place] Q6H PRN Pain MILD(1-3)/Fever >100.5/PALOMINO Carvedilol 12.5 mg 09/09/21 10:00 09/12/21 10:49 Carvedilol 12.5 Mg Tab PO 12.5 mg Q12HR SHRUTI Administration Clopidogrel Bisulfate 75 mg 09/11/21 10:00 09/12/21 10:50 Clopidogrel 75 Mg Tab PO 75 mg QDAY SHRUTI Administration Dextrose 50 ml 09/09/21 18:00 Dextrose 50% In Water (25gm) 50 Ml Syringe IV Q30MIN PRN Hypoglycemia Protocol Epoetin Darío-epbx 10,000 unit 09/11/21 12:00 09/11/21 23:15 Epoetin Darío-Epbx 10,000 Unit/1 Ml Vial SUB-Q 10,000 unit KEV SHRUTI Administration Hydromorphone HCl 0.5 mg 09/09/21 10:30 09/12/21 05:24 Hydromorphone 0.5 Mg/0.5 Ml Inj IV 0.5 mg Q4H PRN Administration Pain , Severe (7-10) Levofloxacin/Dextrose 500 mg in 100 mls @ 66.667 mls/hr 09/11/21 10:00 09/11/21 10:09 Levaquin 500mg/100ml IV 66.667 mls/hr Q48HR SHRUTI Administration Protocol Sodium Chloride 100 mls @ 999 mls/hr 09/09/21 10:30 Nacl 0.9% IV KEV PRN Hypotension Vancomycin HCl 1 gm in 250 mls @ 167.007 mls/hr 09/11/21 22:00 09/12/21 00:42 Vancomycin/Ns 1 Gm/250 Ml IV 167.007 mls/hr TuThSa SHRUTI Administration Insulin Human Lispro 0 unit 09/09/21 22:00 09/12/21 08:02 Insulin Lispro 100 Unit/Ml SUB-Q Not Given ACHS [facility] Protocol Isosorbide Mononitrate 30 mg 09/09/21 10:00 09/12/21 10:51 Isosorbide Mononitrate Er 30 Mg Tab PO 30 mg QDAY SHRUTI Administration Nifedipine 30 mg 09/09/21 10:00 09/12/21 10:50 Nifedipine Xl 30 Mg Tab PO 30 mg QDAY SHRUTI Administration Oxycodone/Acetaminophen 1 tab 09/08/21 18:05 09/12/21 02:22 Oxycodone /Acetaminophen 5-325mg Tab PO 1 tab Q6H PRN Administration Pain, Moderate (4-6) Pantoprazole Sodium 20 mg 09/10/21 07:30 09/12/21 10:48 Pantoprazole 20 Mg Tab PO 20 mg QDAC SHRUTI Administration Pentoxifylline 400 mg 09/11/21 10:00 09/11/21 10:10 Pentoxifylline Er 400 Mg Tab PO 400 mg DAILY SHRUTI Administration Sodium Chloride 10 ml 09/08/21 22:00 09/12/21 10:51 Sodium Chloride 0.9% 10 Ml Flush Syringe IV 10 ml BID SHRUTI Administration Sodium Chloride 10 ml 09/08/21 18:05 Sodium Chloride 0.9% 10 Ml Flush Syringe IV PRN PRN LINE FLUSH
[2021-09-12] MEDS: PENTOXIFYLLINE ER 400 MG TAB PO SCH (12:45)
--- NOTE | 2021-09-12 14:38 | Progress Note ---
Assessment and Plan POD#2 Left BKA Stump is doing well Dry dressing to stump daily Okay to discharge home, from a vascular surgery standpoint when medically c leared. Subjective Date of service: 09/12/21 Principal diagnosis: ESRD Interval history: No significant events overnight. Objective - Constitutional Vitals: Vital Signs - 12hr 09/12/21 09/12/21 09/12/21 04:11 07:36 10:49 Temperature 99.1 F Pulse Rate 85 61 61 Respiratory 21 15 Rate Blood Pressure 94/48 94/48 O2 Sat by Pulse 91 99 Oximetry 09/12/21 09/12/21 10:51 12:10 Temperature Pulse Rate 61 Respiratory Rate Blood Pressure 94/48 O2 Sat by Pulse 99 Oximetry Extremities: abnormal (Left BKA stump dressing was removed and incision is clean and intact without ischemic changes) - Labs CBC & Chem 7: 09/12/21 04:18 09/12/21 04:18 Labs: Abnormal lab results 09/12/21 09/12/21 09/12/21 Range/Units 04:18 04:18 07:42 RBC 3.42 L (3.65-5.03) M/mm3 Hgb 8.6 L (10.1-14.3) gm/dl Hct 27.8 L (30.3-42.9) % MCH 25 L (28-32) pg RDW 24.6 H (13.2-15.2) % BUN 32 H (7-17) mg/dL Creatinine 4.7 H (0.6-1.2) mg/dL POC Glucose 111 H (70-105) mg/dL 09/12/21 Range/Units 11:34 RBC (3.65-5.03) M/mm3 Hgb (10.1-14.3) gm/dl Hct (30.3-42.9) % MCH (28-32) pg RDW (13.2-15.2) % BUN (7-17) mg/dL Creatinine (0.6-1.2) mg/dL POC Glucose 134 H (70-105) mg/dL Medications & Allergies - Medications Allergies/Adverse Reactions: Allergies No Known Allergies Allergy (Verified 09/08/21 14:34) Home Medications: Home Medications Medication Instructions Recorded Confirmed Last Taken Type Acetaminophen [Acetaminophen TAB] 650 mg PO Q4H PRN tablet 04/01/21 09/09/21 07/06/21 Rx Apixaban [Eliquis] 2.5 mg PO BID #180 07/07/21 09/09/21 09/08/21 09:00 Rx Furosemide [Lasix TAB] 20 mg PO QDAY #30 tablet 08/15/21 09/09/21 09/08/21 09:00 Rx ISOSORBIDE MONOnitrate [Imdur ER] 30 mg PO QDAY #30 tablet 08/15/21 09/09/21 09/08/21 09:00 Rx Pantoprazole [Protonix TAB] 20 mg PO QDAC tablet. 08/15/21 09/09/21 09/08/21 09:00 Rx Valsartan [Diovan] 80 mg PO QDAY 30 Days #30 tab 08/15/21 09/09/21 09/08/21 09:00 Rx carvediloL [Coreg] 25 mg PO Q12HR #60 tablet 08/15/21 09/09/21 09/09/21 09:00 Rx sevelamer HCL [Sevelamer HCl] 800 mg PO TID 30 Days #90 tab 08/15/21 09/09/21 09/08/21 09:00 Rx oxyCODONE /ACETAMINOPHEN [Percocet 1 tab PO Q4H PRN 5 Days #30 tablet 08/29/21 09/09/21 09/08/21 09:00 Rx 5/325 mg] NIFEdipine XL [Procardia Xl] 30 mg PO Q12HR #60 tablet 09/11/21 Unknown Rx ALPRAZolam [Xanax TAB] 0.25 mg PO Q8H PRN #12 tablet 09/12/21 Unknown Rx Clopidogrel [Plavix] 75 mg PO QDAY #90 tablet 09/12/21 Unknown Rx Lispro Insulin [HumaLOG] 0 unit SUB-Q ACHS units 09/12/21 Unknown Rx Pentoxifylline [TRENtal] 400 mg PO DAILY #90 tablet 09/12/21 Unknown Rx oxyCODONE /ACETAMINOPHEN [Percocet 1 tab PO Q6H PRN #10 tablet 09/12/21 Unknown Rx 5/325 mg] Active Medications: Generic Name Dose Route Start Last Admin Trade Name Freq PRN Reason Stop Dose Admin Acetaminophen 650 mg 09/08/21 18:05 09/12/21 00:01 Acetaminophen 325 Mg Tab PO 650 mg Q6H PRN Administration Pain, Mild (1-3) Acetaminophen 650 mg 09/08/21 18:05 Acetaminophen 650 Mg Rect Supp ID Q6H PRN Pain MILD(1-3)/Fever >100.5/PALOMINO Carvedilol 12.5 mg 09/09/21 10:00 09/12/21 10:49 Carvedilol 12.5 Mg Tab PO 12.5 mg Q12HR SHRUTI Administration Clopidogrel Bisulfate 75 mg 09/11/21 10:00 09/12/21 10:50 Clopidogrel 75 Mg Tab PO 75 mg QDAY SHRUTI Administration Dextrose 50 ml 09/09/21 18:00 Dextrose 50% In Water (25gm) 50 Ml Syringe IV Q30MIN PRN Hypoglycemia Protocol Epoetin Daíro-epbx 10,000 unit 09/11/21 12:00 09/11/21 23:15 Epoetin Darío-Epbx 10,000 Unit/1 Ml Vial SUB-Q 10,000 unit KEV SHRUTI Administration Hydromorphone HCl 0.5 mg 09/09/21 10:30 09/12/21 05:24 Hydromorphone 0.5 Mg/0.5 Ml Inj IV 0.5 mg Q4H PRN Administration Pain , Severe (7-10) Levofloxacin/Dextrose 500 mg in 100 mls @ 66.667 mls/hr 09/11/21 10:00 09/11/21 10:09 Levaquin 500mg/100ml IV 09/13/21 23:59 66.667 mls/hr Q48HR SHRUTI Administration Protocol Sodium Chloride 100 mls @ 999 mls/hr 09/09/21 10:30 Nacl 0.9% IV KEV PRN Hypotension Vancomycin HCl 1 gm in 250 mls @ 167.007 mls/hr 09/11/21 22:00 09/12/21 00:42 Vancomycin/Ns 1 Gm/250 Ml IV 09/13/21 23:59 167.007 mls/hr TuThSa SHRUTI Administration Insulin Human Lispro 0 unit 09/09/21 22:00 09/12/21 12:36 Insulin Lispro 100 Unit/Ml SUB-Q Not Given ACHS SHRUTI Protocol Isosorbide Mononitrate 30 mg 09/09/21 10:00 09/12/21 10:51 Isosorbide Mononitrate Er 30 Mg Tab PO 30 mg QDAY SHRUTI Administration Nifedipine 30 mg 09/09/21 10:00 09/12/21 10:50 Nifedipine Xl 30 Mg Tab PO 30 mg QDAY SHRUTI Administration Oxycodone/Acetaminophen 1 tab 09/08/21 18:05 09/12/21 02:22 Oxycodone /Acetaminophen 5-325mg Tab PO 1 tab Q6H PRN Administration Pain, Moderate (4-6) Pantoprazole Sodium 20 mg 09/10/21 07:30 09/12/21 10:48 Pantoprazole 20 Mg Tab PO 20 mg QDAC SHRUTI Administration Pentoxifylline 400 mg 09/11/21 10:00 09/11/21 10:10 Pentoxifylline Er 400 Mg Tab PO 400 mg DAILY SHRUTI Administration Sodium Chloride 10 ml 09/08/21 22:00 09/12/21 10:51 Sodium Chloride 0.9% 10 Ml Flush Syringe IV 10 ml BID SHRUTI Administration Sodium Chloride 10 ml 09/08/21 18:05 Sodium Chloride 0.9% 10 Ml Flush Syringe IV PRN PRN LINE FLUSH
--- NOTE | 2021-09-12 15:20 | Progress Note ---
Assessment and Plan Assessment and plan: This is a 56-year-old female with known past medical history of Deaf, ESRD on HD(T,R,Sa), HTN, DM, PVD s/p revascularization, chronic limbs ischemia, and medical noncompliance admitted for sepsis most likely due to LLE gangrene/cellulitus Hospital Course to Date: 09/09: LLE grangrene/cellullitis with foul odor noted. Patient also with leukocytosis, remains afebrile. Continue empiric IV abx for now, ID also consulted. Patient is s/p 2units of PRBCs, H&H improved this am. No s/s of any active bleeding, continue to trend H&H. According to patient's sister, patient eventually agreed to the Vascular Surgery recommendation for amputation and is scheduled to have her LLE amputated by Dr. Llamas. Vascular Surgery consulted. Anasarca and large volume ascites also reported from CTAP, orders placed for US paracentesis. 09/10: Mentation is unchanged. Plan for BKA today by Vascular Surgery. Patient remains afebrile, continue current IV Abx per ID. H&H remains stable. Patient to lerated HD overnight. US paracentesis pending. Per records patient was on Eliquis and Plavix, per family patient is noncompliant with meds. Resume meds if okay with Vascular Surgery. 09/11: S/p Left BKA and US paracentesis, 3.7L removed. Patient appears more awake and calm this am, tolerating PO intake, VSS. Continue PRN analgesia for pain control. Left stump noted with no complications noted. Home plavix resumed per Vascular Surgery. PT/OT ordered. Continue HD per Nephro. Patient is stable for transfer to Telemetry. 09/12: Patient is postop day 2 of left BKA stump is doing well per vascular. Discussed with vascular today we will restart her Eliquis. Patient is clinically stable for discharge but awaiting authorization from insurance company to go to subacute rehab. Discussed with ID patient does not need any antibiotics on discharge as BKA was not surgical care at this time. During this hospitalization the patient underwent paracentesis with 3.7 L removed we will recommend outpatient follow-up with GI and also primary care physician to continue to arrange paracentesis as needed. Assessment and Plan #Sepsis #Leukocytosis #Left Lower Extremity iscehmia with Gangrene/Cellutis - Presented with LLE ischemia with gangrene and foul odor and leukocytosi - Patient is afebrile, VSS - Blood cultures with NGTD - ID consulted, appreciate recommendations - Continue current IV Abx by ID - Patient refused LLE amputation last admission - Per patient's sister, patient eventually agreed to the Vascular Surgery recommendation for amputation and is scheduled to have her LLE amputated by Dr. Llamas - Vascular Surgery consulted, appreciate recommendations - 09/10 s/p Left BKA by Vascular Surgery - Continue to F/U on cultures - Daily CBC monitor - Wound Care consulted #Peripheral Vascular Disease(PVD) #Chronic Limb ischemia #Left Lower Extremity Ischemia with gangrene - Chronic ischemia complicated by gangrene - Vascular Surgery recommended amputation last admission, patient refused at the time - Per patient's sister, patient eventually agreed to the Vascular Surgery recommendation for amputation and is scheduled to have her LLE amputated by Dr. Llamas. - Vascular Surgery Consulted, appreciate recommendations - 09/10 s/p Left BKA by Vascular Surgery - Wound care consulted - Per records patient was on Eliquis and Plavix, per family patient is noncompliant with meds. - Home plavix resumed by Vascular Surgery #Acute Metabolic Encephalopathy - most likely secondary to infectious process - Mentation improved this am, very [place] - CT head/Brain with no acute intracranial abnormalities - Continue IV abx, s/p left BKA - Avoid benzodiazepine to reduce the possibility of delirium - Maintenance of sleep-wake cycle #Hypertension - Updated home list pending - Resume home antihypertensives - Continue blood pressure monitor per protocol - Maintain SBP less than 160 #End-Stage Renal Disease(ESRD) on HD #Volume overload #Hyperkalemia #Noncompliance - Patient missed her previous dialysis session - Nephrology on consult, appreciated recommendation - Continue HD per Nephro - Strict intake and output - Avoid nephrotoxic medications; Renally dose medications - Monitor and replace electrolytes as needed #Large Volume Ascites - Noted from CTAP - 09/10 s/p US paracentesis, 3.7L removed #Acute Pain - due to LLE ischemia/gangrene - s/p left BKA - PRN Analgesia for pain control #Anemia of Chronic Disease - probably due to ESRD - presented with hgb of 6.1, s/p 2units of PRBCs - No s/s of any active bleeding - H&H remains stable - Continue to trend H&H - Epogen per Nephro - Transfuse for hgb less than 7 #Type 2 Diabetes Mellitus - SSI and BH check ACHS - Avoid hypoglycemia - While critically ill target blood glucose of 140-180 #GI/DVT Prophylaxis - PPI- Protonix - SCD to bilateral lower extremities while in bed #Advance Care Planning - Disease education done, care plan, diagnoses, and prognosis discussed with the patient's sister. Patient is a FULL code. Patient's family acknowledged and understanding and agreement with current care plan. History Interval history: Patient seen and examined this morning doing well no acute distress reported. Hospitalist Physical - Physical exam Narrative exam: General: No acute distress. - EENT Eyes: Present: PERRL ENT: other (Very [place]) - Neck Neck: Present: normal ROM - Respiratory Respiratory effort: normal Respiratory: bilateral: diminished - Cardiovascular Rhythm: regular Heart Sounds: Present: S1 & S2 - Extremities Extremities: abnormal (left second digit and fifth digit necrosis. S/p Left BKA) Extremity abnormal: edema - Peripheral Assessment Generalized Edema Type: Non-pitting Edema Degree: 1+ Capillary Refill: < 3 seconds Skin Temperature: Warm Peripheral Pulses: within normal limits (RLE, s/p Left BKA) - Abdominal General gastrointestinal: soft, non-distended, normal bowel sounds - Integumentary Integumentary: Present: warm - Psychiatric Psychiatric: appropriate mood/affect, cooperative - Neurologic Neurologic: moves all extremities, other (Awake and appropriate, following commands) - Allied Health Allied health notes reviewed: nursing, case management General - Constitutional Vitals: Temp Pulse Resp BP Pulse Ox 99.1 F 61 15 94/48 99 09/12/21 07:36 09/12/21 10:51 09/12/21 07:36 09/12/21 10:51 09/12/21 12:10 General appearance: Present: no acute distress, obese Results - Labs CBC & Chem 7: 09/12/21 04:18 09/12/21 04:18 Labs: Laboratory Last Values WBC 10.0 K/mm3 (4.5-11.0) 09/12/21 04:18 RBC 3.42 M/mm3 (3.65-5.03) L 09/12/21 04:18 Hgb 8.6 gm/dl (10.1-14.3) L 09/12/21 04:18 Hct 27.8 % (30.3-42.9) L 09/12/21 04:18 MCV 81 fl (79-97) 09/12/21 04:18 MCH 25 pg (28-32) L 09/12/21 04:18 MCHC 31 % (30-34) 09/12/21 04:18 RDW 24.6 % (13.2-15.2) H 09/12/21 04:18 Plt Count 365 K/mm3 (140-440) 09/12/21 04:18 Add Manual Diff Complete 09/09/21 04:41 Total Counted 100 09/09/21 04:41 Seg Neutrophils % Cutter Machine 09/09/21 04:41 Seg Neuts % (Manual) 96.0 % (40.0-70.0) H 09/09/21 04:41 Band Neutrophils % 0 % 09/09/21 04:41 Lymphocytes % (Manual) 3.0 % (13.4-35.0) L 09/09/21 04:41 Reactive Lymphs % (Man) 0 % 09/09/21 04:41 Monocytes % (Manual) 1.0 % (0.0-7.3) 09/09/21 04:41 Eosinophils % (Manual) 0 % (0.0-4.3) 09/09/21 04:41 Basophils % (Manual) 0 % (0.0-1.8) 09/09/21 04:41 Metamyelocytes % 0 % 09/09/21 04:41 Myelocytes % 0 % 09/09/21 04:41 Promyelocytes % 0 % 09/09/21 04:41 Blast Cells % 0 % 09/09/21 04:41 Nucleated RBC % 1.0 % (0.0-0.9) H 09/09/21 04:41 Seg Neutrophils # Man 25.0 K/mm3 (1.8-7.7) H 09/09/21 04:41 Band Neutrophils # 0.0 K/mm3 09/09/21 04:41 Lymphocytes # (Manual) 0.8 K/mm3 (1.2-5.4) L 09/09/21 04:41 Abs React Lymphs (Man) 0.0 K/mm3 09/09/21 04:41 Monocytes # (Manual) 0.3 K/mm3 (0.0-0.8) 09/09/21 04:41 Eosinophils # (Manual) 0.0 K/mm3 (0.0-0.4) 09/09/21 04:41 Basophils # (Manual) 0.0 K/mm3 (0.0-0.1) 09/09/21 04:41 Metamyelocytes # 0.0 K/mm3 09/09/21 04:41 Myelocytes # 0.0 K/mm3 09/09/21 04:41 Promyelocytes # 0.0 K/mm3 09/09/21 04:41 Blast Cells # 0.0 K/mm3 09/09/21 04:41 WBC Morphology Not Reportable 09/09/21 04:41 Hypersegmented Neuts Not Reportable 09/09/21 04:41 Hyposegmented Neuts Not Reportable 09/09/21 04:41 Hypogranular Neuts Not Reportable 09/09/21 04:41 Smudge Cells Not Reportable 09/09/21 04:41 Toxic Granulation Not Reportable 09/09/21 04:41 Toxic Vacuolation Not Reportable 09/09/21 04:41 Dohle Bodies Not Reportable 09/09/21 04:41 Pelger-Huet Anomaly Not Reportable 09/09/21 04:41 Cosme Rods Not Reportable 09/09/21 04:41 Platelet Estimate Consistent w auto 09/09/21 04:41 Clumped Platelets Not Reportable 09/09/21 04:41 Plt Clumps, EDTA Not Reportable 09/09/21 04:41 Large Platelets Not Reportable 09/09/21 04:41 Giant Platelets Not Reportable 09/09/21 04:41 Platelet Satelliting Not Reportable 09/09/21 04:41 Plt Morphology Comment Not Reportable 09/09/21 04:41 RBC Morphology Not Reportable 09/09/21 04:41 Dimorphic RBCs Not Reportable 09/09/21 04:41 Polychromasia Not Reportable 09/09/21 04:41 Hypochromasia 2+ 09/09/21 04:41 Poikilocytosis 1+ 09/09/21 04:41 Anisocytosis 2+ 09/09/21 04:41 Microcytosis Not Reportable 09/09/21 04:41 Macrocytosis Not Reportable 09/09/21 04:41 Spherocytes Not Reportable 09/09/21 04:41 Pappenheimer Bodies Not Reportable 09/09/21 04:41 Sickle Cells Not Reportable 09/09/21 04:41 Target Cells Not Reportable 09/09/21 04:41 Tear Drop Cells Not Reportable 09/09/21 04:41 Ovalocytes Rare 09/09/21 04:41 Helmet Cells Not Reportable 09/09/21 04:41 [place] Bodies Not Reportable 09/09/21 04:41 [place] Rings Not Reportable 09/09/21 04:41 [place] Cells Not Reportable 09/09/21 04:41 Bite Cells Not Reportable 09/09/21 04:41 Crenated Cell Not Reportable 09/09/21 04:41 Elliptocytes Few 09/09/21 04:41 Acanthocytes (Spur) Few 09/09/21 04:41 Rouleaux Not Reportable 09/09/21 04:41 Hemoglobin C Crystals Not Reportable 09/09/21 04:41 Schistocytes Not Reportable 09/09/21 04:41 Malaria parasites Not Reportable 09/09/21 04:41 [place] Bodies Not Reportable 09/09/21 04:41 Hem Pathologist Commnt No 09/09/21 04:41 PT 19.1 Sec. (12.2-14.9) H 09/08/21 15:56 INR 1.42 (0.87-1.13) H 09/08/21 15:56 APTT 37.7 Sec. (24.2-36.6) H 09/08/21 15:56 Sodium 138 mmol/L (137-145) 09/12/21 04:18 Potassium 4.3 mmol/L (3.6-5.0) 09/12/21 04:18 Chloride 99.9 mmol/L (98-107) 09/12/21 04:18 Carbon Dioxide 24 mmol/L (22-30) 09/12/21 04:18 Anion Gap 18 mmol/L 09/12/21 04:18 BUN 32 mg/dL (7-17) H 09/12/21 04:18 Creatinine 4.7 mg/dL (0.6-1.2) H 09/12/21 04:18 Estimated GFR 12 ml/min 09/12/21 04:18 BUN/Creatinine Ratio 7 % 09/12/21 04:18 Glucose 97 mg/dL (65-100) 09/12/21 04:18 POC Glucose 134 mg/dL (70-105) H 09/12/21 11:34 Lactic Acid 1.40 mmol/L (0.7-2.0) 09/09/21 04:41 Calcium 8.4 mg/dL (8.4-10.2) 09/12/21 04:18 Total Bilirubin 1.60 mg/dL (0.1-1.2) H 09/09/21 04:41 Direct Bilirubin 0.4 mg/dL (0-0.2) H 09/08/21 15:56 Indirect Bilirubin 0.1 mg/dL 09/08/21 15:56 AST 14 units/L (5-40) 09/09/21 04:41 ALT 7 units/L (7-56) 09/09/21 04:41 Alkaline Phosphatase 170 units/L (35-129) H 09/09/21 04:41 Ammonia 19.0 umol/L (25-60) L 09/08/21 15:56 Total Creatine Kinase 77 units/L (30-135) 09/08/21 15:56 Total Protein 7.3 g/dL (6.3-8.2) 09/09/21 04:41 Albumin 2.5 g/dL (3.9-5) L 09/09/21 04:41 Albumin/Globulin Ratio 0.5 % 09/09/21 04:41 Nasal Screen MRSA (PCR) Positive (Negative) 09/08/21 05:30 Random Vancomycin 10.4 ug/mL (0-40.0) 09/11/21 04:27 Blood Type A POSITIVE 09/08/21 20:40 Antibody Screen Negative 09/08/21 20:40 Crossmatch See Detail 09/08/21 20:40 Microbiology: Microbiology 09/08/21 15:56 Peripheral/Venous Blood Culture - Preliminary NO GROWTH AFTER 72 HOURS 09/08/21 15:56 Peripheral/Venous Blood Culture - Preliminary NO GROWTH AFTER 72 HOURS Active Medications - Current Medications Current Medications: Generic Name Dose Route Start Last Admin Trade Name Freq PRN Reason Stop Dose Admin Acetaminophen 650 mg 09/08/21 18:05 09/12/21 00:01 Acetaminophen 325 Mg Tab PO 650 mg Q6H PRN Administration Pain, Mild (1-3) Acetaminophen 650 mg 09/08/21 18:05 Acetaminophen 650 Mg Rect Supp MI Q6H PRN Pain MILD(1-3)/Fever >100.5/PALOMINO Carvedilol 12.5 mg 09/09/21 10:00 09/12/21 10:49 Carvedilol 12.5 Mg Tab PO 12.5 mg Q12HR SHRUTI Administration Clopidogrel Bisulfate 75 mg 09/11/21 10:00 09/12/21 10:50 Clopidogrel 75 Mg Tab PO 75 mg QDAY SHRUTI Administration Dextrose 50 ml 09/09/21 18:00 Dextrose 50% In Water (25gm) 50 Ml Syringe IV Q30MIN PRN Hypoglycemia Protocol Epoetin Darío-epbx 10,000 unit 09/11/21 12:00 09/11/21 23:15 Epoetin Darío-Epbx 10,000 Unit/1 Ml Vial SUB-Q 10,000 unit KEV SHRUTI Administration Hydromorphone HCl 0.5 mg 09/09/21 10:30 09/12/21 05:24 Hydromorphone 0.5 Mg/0.5 Ml Inj IV 0.5 mg Q4H PRN Administration Pain , Severe (7-10) Levofloxacin/Dextrose 500 mg in 100 mls @ 66.667 mls/hr 09/11/21 10:00 09/11/21 10:09 Levaquin 500mg/100ml IV 09/13/21 23:59 66.667 mls/hr Q48HR SHRUTI Administration Protocol Sodium Chloride 100 mls @ 999 mls/hr 09/09/21 10:30 Nacl 0.9% IV KEV PRN Hypotension Vancomycin HCl 1 gm in 250 mls @ 167.007 mls/hr 09/11/21 22:00 09/12/21 00:42 Vancomycin/Ns 1 Gm/250 Ml IV 09/13/21 23:59 167.007 mls/hr TuThSa SHRUTI Administration Insulin Human Lispro 0 unit 09/09/21 22:00 09/12/21 12:36 Insulin Lispro 100 Unit/Ml SUB-Q Not Given ACHS SHRUTI Protocol Isosorbide Mononitrate 30 mg 09/09/21 10:00 09/12/21 10:51 Isosorbide Mononitrate Er 30 Mg Tab PO 30 mg QDAY SHRUTI Administration Nifedipine 30 mg 09/09/21 10:00 09/12/21 10:50 Nifedipine Xl 30 Mg Tab PO 30 mg QDAY SHRUTI Administration Oxycodone/Acetaminophen 1 tab 09/08/21 18:05 09/12/21 02:22 Oxycodone /Acetaminophen 5-325mg Tab PO 1 tab Q6H PRN Administration Pain, Moderate (4-6) Pantoprazole Sodium 20 mg 09/10/21 07:30 09/12/21 10:48 Pantoprazole 20 Mg Tab PO 20 mg QDAC SHRUTI Administration Pentoxifylline 400 mg 09/11/21 10:00 09/11/21 10:10 Pentoxifylline Er 400 Mg Tab PO 400 mg DAILY SHRUTI Administration Sodium Chloride 10 ml 09/08/21 22:00 09/12/21 10:51 Sodium Chloride 0.9% 10 Ml Flush Syringe IV 10 ml BID SHRUTI Administration Sodium Chloride 10 ml 09/08/21 18:05 Sodium Chloride 0.9% 10 Ml Flush Syringe IV PRN PRN LINE FLUSH Nutrition/Malnutrition Assess - Dietary Evaluation Nutrition/Malnutrition Findings: Nutrition Notes Start: 09/09/21 17:01 Freq: Status: Active Protocol: Document 09/10/21 16:52 ASHLI (Rec: 09/10/21 17:02 ASHLI [id number]) Nutrition Notes Initial or Follow up Brief Note Current Diagnosis CKD (stage V CKD),Diabetes, Sepsis,Hypertension Other Pertinent Diagnosis ESRD+HD, PVD, R-Foot Ischemia, L-LE Gangrene, Anasarca, Leukocytosis... Current Diet NPO (09/10 00:01). Height 5 ft Weight 72.4 kg [place] Body Weight (kg) 45.45 BMI 31.1 Weight change and time frame No body weight change reported in 1 day. Weight Status Obese Subjective/Other Information RD consult for nutrition education assessment. Pt currently on NPO. Paracentesis performed on , well tolerated, according to Progress notes. Procedure planned for 09/10: L -LE BKA, according to Consultation note. Pt still in critical condition , not a candidate for Nutrition Education at the time, will assess feasibility on /U. Percent of energy/protein needs met: Pt currently on NPO. Nutrition Intervention Follow-Up By: 09/16/21 Additional Comments When pertinent continue monitoring food tolerance, %PO intake of meals, and BM.
[2021-09-12] MEDS: SEVELAMER CARBONATE 800 MG TAB PO SCH (19:47)
[2021-09-12] MEDS ORDERED: NON-FORMULARY EACH (Sevelamer Hcl [Sevelamer Hcl] 800 MG Tablet) PO SCH (20:00)
[2021-09-12] MEDS: APIXABAN 2.5 MG TAB PO SCH (21:34)
[2021-09-12] MEDS ORDERED: NON-FORMULARY EACH (Apixaban 2.5 MG Tablet) PO SCH (22:00)
[2021-09-13] MEDS: oxyCODONE /ACETAMINOPHEN 5-325MG TAB PO PRN ×4 (02:24→22:59)
[2021-09-13] MEDS: SEVELAMER CARBONATE 800 MG TAB PO SCH ×3 (08:39→23:01)
[2021-09-13] MEDS: PANTOPRAZOLE 20 MG TAB PO SCH (08:40)
[2021-09-13] MEDS: INSULIN LISPRO 100 UNIT/ML SUB-Q SCH ×4 (08:40→23:01)
--- NOTE | 2021-09-13 08:45 | Progress Note ---
Assessment and Plan Assessment and plan: This is a 56-year-old female with known past medical history of Deaf, ESRD on HD(T,R,Sa), HTN, DM, PVD s/p revascularization, chronic limbs ischemia, and medical noncompliance admitted for sepsis most likely due to LLE gangrene/cellulitus Hospital Course to Date: 09/09: LLE grangrene/cellullitis with foul odor noted. Patient also with leukocytosis, remains afebrile. Continue empiric IV abx for now, ID also consulted. Patient is s/p 2units of PRBCs, H&H improved this am. No s/s of any active bleeding, continue to trend H&H. According to patient's sister, patient eventually agreed to the Vascular Surgery recommendation for amputation and is scheduled to have her LLE amputated by Dr. Llamas. Vascular Surgery consulted. Anasarca and large volume ascites also reported from CTAP, orders placed for US paracentesis. 09/10: Mentation is unchanged. Plan for BKA today by Vascular Surgery. Patient remains afebrile, continue current IV Abx per ID. H&H remains stable. Patient to lerated HD overnight. US paracentesis pending. Per records patient was on Eliquis and Plavix, per family patient is noncompliant with meds. Resume meds if okay with Vascular Surgery. 09/11: S/p Left BKA and US paracentesis, 3.7L removed. Patient appears more awake and calm this am, tolerating PO intake, VSS. Continue PRN analgesia for pain control. Left stump noted with no complications noted. Home plavix resumed per Vascular Surgery. PT/OT ordered. Continue HD per Nephro. Patient is stable for transfer to Telemetry. 09/12: Patient is postop day 2 of left BKA stump is doing well per vascular. Discussed with vascular today we will restart her Eliquis. Patient is clinically stable for discharge but awaiting authorization from insurance company to go to subacute rehab. Discussed with ID patient does not need any antibiotics on discharge as BKA was not surgical care at this time. During this hospitalization the patient underwent paracentesis with 3.7 L removed we will recommend outpatient follow-up with GI and also primary care physician to continue to arrange paracentesis as needed. 09/13: Patient continues to show improvement, no shortness of breath, tolerating diet. she is clinically depressed and worse by knowlege of her limb loss and limitations, will obtain Psych consultation to assist. Assessment and Plan #Sepsis #Leukocytosis #Left Lower Extremity iscehmia with Gangrene/Cellutis - Presented with LLE ischemia with gangrene and foul odor and leukocytosi - Patient is afebrile, VSS - Blood cultures with NGTD - ID consulted, appreciate recommendations - Continue current IV Abx by ID - Patient refused LLE amputation last admission - Per patient's sister, patient eventually agreed to the Vascular Surgery recommendation for amputation and is scheduled to have her LLE amputated by Dr. Llamas - Vascular Surgery consulted, appreciate recommendations - 09/10 s/p Left BKA by Vascular Surgery - Continue to F/U on cultures - Daily CBC monitor - Wound Care consulted #Peripheral Vascular Disease(PVD) #Chronic Limb ischemia #Left Lower Extremity Ischemia with gangrene - Chronic ischemia complicated by gangrene - Vascular Surgery recommended amputation last admission, patient refused at the time - Per patient's sister, patient eventually agreed to the Vascular Surgery recommendation for amputation and is scheduled to have her LLE amputated by Dr. Llamas. - Vascular Surgery Consulted, appreciate recommendations - 09/10 s/p Left BKA by Vascular Surgery - Wound care consulted - Per records patient was on Eliquis and Plavix, per family patient is noncompliant with meds. - Home plavix resumed by Vascular Surgery #Acute Metabolic Encephalopathy - most likely secondary to infectious process - Mentation improved this am, very [place] - CT head/Brain with no acute intracranial abnormalities - Continue IV abx, s/p left BKA - Avoid benzodiazepine to reduce the possibility of delirium - Maintenance of sleep-wake cycle #Hypertension - Updated home list pending - Resume home antihypertensives - Continue blood pressure monitor per protocol - Maintain SBP less than 160 #End-Stage Renal Disease(ESRD) on HD #Volume overload #Hyperkalemia #Noncompliance - Patient missed her previous dialysis session - Nephrology on consult, appreciated recommendation - Continue HD per Nephro - Strict intake and output - Avoid nephrotoxic medications; Renally dose medications - Monitor and replace electrolytes as needed #Large Volume Ascites - Noted from CTAP - 09/10 s/p US paracentesis, 3.7L removed #Acute Pain - due to LLE ischemia/gangrene - s/p left BKA - PRN Analgesia for pain control #Anemia of Chronic Disease - probably due to ESRD - presented with hgb of 6.1, s/p 2units of PRBCs - No s/s of any active bleeding - H&H remains stable - Continue to trend H&H - Epogen per Nephro - Transfuse for hgb less than 7 #Type 2 Diabetes Mellitus - SSI and BH check ACHS - Avoid hypoglycemia - While critically ill target blood glucose of 140-180 #GI/DVT Prophylaxis - PPI- Protonix - SCD to bilateral lower extremities while in bed #Advance Care Planning - Disease education done, care plan, diagnoses, and prognosis discussed with the patient's sister. Patient is a FULL code. Patient's family acknowledged and understanding and agreement with current care plan. History Interval history: Patient seen and examined this morning doing well no acute distress reported. HARD OF Hearing, emotional this morning about her limb loss Hospitalist Physical - Physical exam Narrative exam: General: No acute distress. - EENT Eyes: Present: PERRL ENT: other (Very [place]) - Neck Neck: Present: normal ROM - Respiratory Respiratory effort: normal Respiratory: bilateral: diminished - Cardiovascular Rhythm: regular Heart Sounds: Present: S1 & S2 - Extremities Extremities: abnormal (left second digit and fifth digit necrosis. S/p Left BKA) Extremity abnormal: edema - Peripheral Assessment Generalized Skin Temperature: Warm Peripheral Pulses: within normal limits (RLE, s/p Left BKA) - Abdominal General gastrointestinal: soft, non-distended, normal bowel sounds - Integumentary Integumentary: Present: warm, necrosis of digits as noted above - Psychiatric Psychiatric: emotional mood/affect, cooperative - Neurologic Neurologic: moves all extremities, other (Awake and appropriate, following commands) - Allied Health Allied health notes reviewed: nursing, case management General - Constitutional Vitals: Temp Pulse Resp BP Pulse Ox 98.7 F 74 16 142/60 96 09/13/21 05:13 09/13/21 05:13 09/13/21 05:13 09/13/21 05:13 09/13/21 05:13 General appearance: Present: no acute distress, obese Results - Labs CBC & Chem 7: 09/12/21 04:18 09/12/21 04:18 Labs: Laboratory Last Values WBC 10.0 K/mm3 (4.5-11.0) 09/12/21 04:18 RBC 3.42 M/mm3 (3.65-5.03) L 09/12/21 04:18 Hgb 8.6 gm/dl (10.1-14.3) L 09/12/21 04:18 Hct 27.8 % (30.3-42.9) L 09/12/21 04:18 MCV 81 fl (79-97) 09/12/21 04:18 MCH 25 pg (28-32) L 09/12/21 04:18 MCHC 31 % (30-34) 09/12/21 04:18 RDW 24.6 % (13.2-15.2) H 09/12/21 04:18 Plt Count 365 K/mm3 (140-440) 09/12/21 04:18 Add Manual Diff Complete 09/09/21 04:41 Total Counted 100 09/09/21 04:41 Seg Neutrophils % Bulk Folder 09/09/21 04:41 Seg Neuts % (Manual) 96.0 % (40.0-70.0) H 09/09/21 04:41 Band Neutrophils % 0 % 09/09/21 04:41 Lymphocytes % (Manual) 3.0 % (13.4-35.0) L 09/09/21 04:41 Reactive Lymphs % (Man) 0 % 09/09/21 04:41 Monocytes % (Manual) 1.0 % (0.0-7.3) 09/09/21 04:41 Eosinophils % (Manual) 0 % (0.0-4.3) 09/09/21 04:41 Basophils % (Manual) 0 % (0.0-1.8) 09/09/21 04:41 Metamyelocytes % 0 % 09/09/21 04:41 Myelocytes % 0 % 09/09/21 04:41 Promyelocytes % 0 % 09/09/21 04:41 Blast Cells % 0 % 09/09/21 04:41 Nucleated RBC % 1.0 % (0.0-0.9) H 09/09/21 04:41 Seg Neutrophils # Man 25.0 K/mm3 (1.8-7.7) H 09/09/21 04:41 Band Neutrophils # 0.0 K/mm3 09/09/21 04:41 Lymphocytes # (Manual) 0.8 K/mm3 (1.2-5.4) L 09/09/21 04:41 Abs React Lymphs (Man) 0.0 K/mm3 09/09/21 04:41 Monocytes # (Manual) 0.3 K/mm3 (0.0-0.8) 09/09/21 04:41 Eosinophils # (Manual) 0.0 K/mm3 (0.0-0.4) 09/09/21 04:41 Basophils # (Manual) 0.0 K/mm3 (0.0-0.1) 09/09/21 04:41 Metamyelocytes # 0.0 K/mm3 09/09/21 04:41 Myelocytes # 0.0 K/mm3 09/09/21 04:41 Promyelocytes # 0.0 K/mm3 09/09/21 04:41 Blast Cells # 0.0 K/mm3 09/09/21 04:41 WBC Morphology Not Reportable 09/09/21 04:41 Hypersegmented Neuts Not Reportable 09/09/21 04:41 Hyposegmented Neuts Not Reportable 09/09/21 04:41 Hypogranular Neuts Not Reportable 09/09/21 04:41 Smudge Cells Not Reportable 09/09/21 04:41 Toxic Granulation Not Reportable 09/09/21 04:41 Toxic Vacuolation Not Reportable 09/09/21 04:41 Dohle Bodies Not Reportable 09/09/21 04:41 Pelger-Huet Anomaly Not Reportable 09/09/21 04:41 Cosme Rods Not Reportable 09/09/21 04:41 Platelet Estimate Consistent w auto 09/09/21 04:41 Clumped Platelets Not Reportable 09/09/21 04:41 Plt Clumps, EDTA Not Reportable 09/09/21 04:41 Large Platelets Not Reportable 09/09/21 04:41 Giant Platelets Not Reportable 09/09/21 04:41 Platelet Satelliting Not Reportable 09/09/21 04:41 Plt Morphology Comment Not Reportable 09/09/21 04:41 RBC Morphology Not Reportable 09/09/21 04:41 Dimorphic RBCs Not Reportable 09/09/21 04:41 Polychromasia Not Reportable 09/09/21 04:41 Hypochromasia 2+ 09/09/21 04:41 Poikilocytosis 1+ 09/09/21 04:41 Anisocytosis 2+ 09/09/21 04:41 Microcytosis Not Reportable 09/09/21 04:41 Macrocytosis Not Reportable 09/09/21 04:41 Spherocytes Not Reportable 09/09/21 04:41 Pappenheimer Bodies Not Reportable 09/09/21 04:41 Sickle Cells Not Reportable 09/09/21 04:41 Target Cells Not Reportable 09/09/21 04:41 Tear Drop Cells Not Reportable 09/09/21 04:41 Ovalocytes Rare 09/09/21 04:41 Helmet Cells Not Reportable 09/09/21 04:41 [place] Bodies Not Reportable 09/09/21 04:41 [place] Rings Not Reportable 09/09/21 04:41 [place] Cells Not Reportable 09/09/21 04:41 Bite Cells Not Reportable 09/09/21 04:41 Crenated Cell Not Reportable 09/09/21 04:41 Elliptocytes Few 09/09/21 04:41 Acanthocytes (Spur) Few 09/09/21 04:41 Rouleaux Not Reportable 09/09/21 04:41 Hemoglobin C Crystals Not Reportable 09/09/21 04:41 Schistocytes Not Reportable 09/09/21 04:41 Malaria parasites Not Reportable 09/09/21 04:41 Joezf Bodies Not Reportable 09/09/21 04:41 Hem Pathologist Commnt No 09/09/21 04:41 PT 19.1 Sec. (12.2-14.9) H 09/08/21 15:56 INR 1.42 (0.87-1.13) H 09/08/21 15:56 APTT 37.7 Sec. (24.2-36.6) H 09/08/21 15:56 Sodium 138 mmol/L (137-145) 09/12/21 04:18 Potassium 4.3 mmol/L (3.6-5.0) 09/12/21 04:18 Chloride 99.9 mmol/L (98-107) 09/12/21 04:18 Carbon Dioxide 24 mmol/L (22-30) 09/12/21 04:18 Anion Gap 18 mmol/L 09/12/21 04:18 BUN 32 mg/dL (7-17) H 09/12/21 04:18 Creatinine 4.7 mg/dL (0.6-1.2) H 09/12/21 04:18 Estimated GFR 12 ml/min 09/12/21 04:18 BUN/Creatinine Ratio 7 % 09/12/21 04:18 Glucose 97 mg/dL (65-100) 09/12/21 04:18 POC Glucose 114 mg/dL (70-105) H 09/13/21 07:44 Lactic Acid 1.40 mmol/L (0.7-2.0) 09/09/21 04:41 Calcium 8.4 mg/dL (8.4-10.2) 09/12/21 04:18 Total Bilirubin 1.60 mg/dL (0.1-1.2) H 09/09/21 04:41 Direct Bilirubin 0.4 mg/dL (0-0.2) H 09/08/21 15:56 Indirect Bilirubin 0.1 mg/dL 09/08/21 15:56 AST 14 units/L (5-40) 09/09/21 04:41 ALT 7 units/L (7-56) 09/09/21 04:41 Alkaline Phosphatase 170 units/L (35-129) H 09/09/21 04:41 Ammonia 19.0 umol/L (25-60) L 09/08/21 15:56 Total Creatine Kinase 77 units/L (30-135) 09/08/21 15:56 Total Protein 7.3 g/dL (6.3-8.2) 09/09/21 04:41 Albumin 2.5 g/dL (3.9-5) L 09/09/21 04:41 Albumin/Globulin Ratio 0.5 % 09/09/21 04:41 Nasal Screen MRSA (PCR) Positive (Negative) 09/08/21 05:30 Random Vancomycin 10.4 ug/mL (0-40.0) 09/11/21 04:27 Blood Type A POSITIVE 09/08/21 20:40 Antibody Screen Negative 09/08/21 20:40 Crossmatch See Detail 09/08/21 20:40 Microbiology: Microbiology 09/08/21 15:56 Peripheral/Venous Blood Culture - Preliminary NO GROWTH AFTER 4 DAYS 09/08/21 15:56 Peripheral/Venous Blood Culture - Preliminary NO GROWTH AFTER 4 DAYS Active Medications - Current Medications Current Medications: Generic Name Dose Route Start Last Admin Trade Name Freq PRN Reason Stop Dose Admin Acetaminophen 650 mg 09/08/21 18:05 09/12/21 00:01 Acetaminophen 325 Mg Tab PO 650 mg Q6H PRN Administration Pain, Mild (1-3) Acetaminophen 650 mg 09/08/21 18:05 Acetaminophen 650 Mg Rect Supp [place] Q6H PRN Pain MILD(1-3)/Fever >100.5/PALOMINO Apixaban 2.5 mg 09/12/21 22:00 09/12/21 21:34 Apixaban 2.5 Mg Tab PO 2.5 mg Q12HR SHRUTI Administration Protocol Carvedilol 12.5 mg 09/09/21 10:00 09/12/21 21:34 Carvedilol 12.5 Mg Tab PO 12.5 mg Q12HR SHRUTI Administration Clopidogrel Bisulfate 75 mg 09/11/21 10:00 09/12/21 10:50 Clopidogrel 75 Mg Tab PO 75 mg QDAY SHRUTI Administration Dextrose 50 ml 09/09/21 18:00 Dextrose 50% In Water (25gm) 50 Ml Syringe IV Q30MIN PRN Hypoglycemia Protocol Epoetin Darío-epbx 10,000 unit 09/11/21 12:00 09/11/21 23:15 Epoetin Darío-Epbx 10,000 Unit/1 Ml Vial SUB-Q 10,000 unit KEV SHRUTI Administration Furosemide 20 mg 09/13/21 10:00 Furosemide 20 Mg Tab PO QDAY SHRUTI Hydromorphone HCl 0.5 mg 09/09/21 10:30 09/12/21 23:06 Hydromorphone 0.5 Mg/0.5 Ml Inj IV 0.5 mg Q4H PRN Administration Pain , Severe (7-10) Levofloxacin/Dextrose 500 mg in 100 mls @ 66.667 mls/hr 09/11/21 10:00 0 09/11/21 10:09 Levaquin 500mg/100ml IV 09/13/21 23:59 66.667 mls/hr Q48HR SHRUTI Administration Protocol Sodium Chloride 100 mls @ 999 mls/hr 09/09/21 10:30 Nacl 0.9% IV KEV PRN Hypotension Vancomycin HCl 1 gm in 250 mls @ 167.007 mls/hr 09/11/21 22:00 09/12/21 00:42 Vancomycin/Ns 1 Gm/250 Ml IV 09/13/21 23:59 167.007 mls/hr TuThSa SHRUTI Administration Insulin Human Lispro 0 unit 09/09/21 22:00 09/13/21 08:40 Insulin Lispro 100 Unit/Ml SUB-Q Not Given ACHS [facility] Protocol Isosorbide Mononitrate 30 mg 09/09/21 10:00 09/12/21 10:51 Isosorbide Mononitrate Er 30 Mg Tab PO 30 mg QDAY SHRUTI Administration Nifedipine 30 mg 09/09/21 10:00 09/12/21 10:50 Nifedipine Xl 30 Mg Tab PO 30 mg QDAY SHRUTI Administration Oxycodone/Acetaminophen 1 tab 09/08/21 18:05 09/13/21 08:39 Oxycodone /Acetaminophen 5-325mg Tab PO 1 tab Q6H PRN Administration Pain, Moderate (4-6) Pantoprazole Sodium 20 mg 09/10/21 07:30 09/13/21 08:40 Pantoprazole 20 Mg Tab PO 20 mg QDAC SHRUTI Administration Pentoxifylline 400 mg 09/11/21 10:00 09/12/21 12:45 Pentoxifylline Er 400 Mg Tab PO 400 mg DAILY SHRUTI Administration Sevelamer Carbonate 800 mg 09/12/21 20:00 09/13/21 08:39 Sevelamer Carbonate 800 Mg Tab PO 800 mg TID SHRUTI Administration Sodium Chloride 10 ml 09/08/21 22:00 09/12/21 22:03 Sodium Chloride 0.9% 10 Ml Flush Syringe IV 10 ml BID SHRUTI Administration Sodium Chloride 10 ml 09/08/21 18:05 Sodium Chloride 0.9% 10 Ml Flush Syringe IV PRN PRN LINE FLUSH Nutrition/Malnutrition Assess - Dietary Evaluation Nutrition/Malnutrition Findings: Nutrition Notes Start: 09/09/21 17:01 Freq: Status: Active Protocol: Document 09/10/21 16:52 ASHLI (Rec: 09/10/21 17:02 ASHLI [id number]) Nutrition Notes Initial or Follow up Brief Note Current Diagnosis CKD (stage V CKD),Diabetes, Sepsis,Hypertension Other Pertinent Diagnosis ESRD+HD, PVD, R-Foot Ischemia, L-LE Gangrene, Anasarca, Leukocytosis... Current Diet NPO (09/10 00:01). Height 5 ft Weight 72.4 kg [place] Body Weight (kg) 45.45 BMI 31.1 Weight change and time frame No body weight change reported in 1 day. Weight Status Obese Subjective/Other Information RD consult for nutrition education assessment. Pt currently on NPO. Paracentesis performed on , well tolerated, according to Progress notes. Procedure planned for 09/10: L -LE BKA, according to Consultation note. Pt still in critical condition , not a candidate for Nutrition Education at the time, will assess feasibility on F/U. Percent of energy/protein needs met: Pt currently on NPO. Nutrition Intervention Follow-Up By: 09/16/21 Additional Comments When pertinent continue monitoring food tolerance, %PO intake of meals, and BM.
[2021-09-13] MEDS: NIFEdipine XL 30 MG TAB PO SCH (09:46)
[2021-09-13] MEDS: CLOPIDOGREL 75 MG TAB PO SCH (09:46)
[2021-09-13] MEDS: FUROSEMIDE 20 MG TAB PO SCH (09:47)
[2021-09-13] MEDS: APIXABAN 2.5 MG TAB PO SCH ×2 (09:47→23:34)
[2021-09-13] MEDS: carvediloL 12.5 MG TAB PO SCH ×2 (09:47→23:01)
--- NOTE | 2021-09-13 10:36 | Progress Note ---
Assessment and Plan - Patient Problems (1) Hyperkalemia Current Visit: Yes Status: Acute Plan to address problem: Resolved with dialysis. Follow-up potassium periodically (2) Peripheral vascular disease Current Visit: Yes Status: Acute Plan to address problem: Status post left below-knee amputation with improvement. Continue management by vascular surgeon. Psychiatrist has been consulted by primary attending to evaluate depression post amputation (3) ESRD (end stage renal disease) on dialysis Current Visit: No Status: Acute Plan to address problem: Continue hemodialysis per schedule. (4) Hypertensive chronic kidney disease with stage 5 chronic kidney disease or end stage renal disease Current Visit: No Status: Acute Plan to address problem: Follow-up blood pressure on current medications (5) Type 2 diabetes mellitus with diabetic chronic kidney disease Current Visit: No Status: Acute Plan to address problem: Blood sugar control by primary attending. Subjective Date of service: 09/13/21 Principal diagnosis: ESRD Interval history: Patient seen lying in bed. She has no complaints. Objective - Exam Narrative Exam: Middle-aged -[place] female lying in bed in no acute distress HEENT: NCAT, pink oral mucous membrane Neck: Supple, no venous distention CVS: S1S2 RRR with no murmur, rub or gallop Chest: Clear to auscultation Abdomen: Protuberant, soft, nontender, no organomegaly, bowel sounds are present Extremities: No edema Neuro: Awake, alert no focal deficits - Vital Signs Vital signs: Vital Signs - 12hr 09/12/21 09/13/21 09/13/21 23:13 00:17 02:24 Temperature 98.9 F Pulse Rate 81 Pulse Rate [ 74 Apical] Respiratory 18 20 Rate Blood Pressure 149/62 O2 Sat by Pulse 99 98 Oximetry 09/13/21 05:13 Temperature 98.7 F Pulse Rate 74 Pulse Rate [ Apical] Respiratory 16 Rate Blood Pressure 142/60 O2 Sat by Pulse 96 Oximetry - Lab 09/12/21 04:18 09/12/21 04:18 Most recent lab results Calcium 8.4 mg/dL (8.4-10.2) 09/12/21 04:18 Medications & Allergies - Medications Allergies/Adverse Reactions: Allergies No Known Allergies Allergy (Verified 09/08/21 14:34) Home Medications: Home Medications Medication Instructions Recorded Confirmed Last Taken Type Acetaminophen [Acetaminophen TAB] 650 mg PO Q4H PRN tablet 04/01/21 09/09/21 07/06/21 Rx Apixaban [Eliquis] 2.5 mg PO BID #180 07/07/21 09/09/21 09/08/21 09:00 Rx Furosemide [Lasix TAB] 20 mg PO QDAY #30 tablet 08/15/21 09/09/21 09/08/21 09:00 Rx ISOSORBIDE MONOnitrate [Imdur ER] 30 mg PO QDAY #30 tablet 08/15/21 09/09/21 09/08/21 09:00 Rx Pantoprazole [Protonix TAB] 20 mg PO QDAC tablet. 08/15/21 09/09/21 09/08/21 09:00 Rx Valsartan [Diovan] 80 mg PO QDAY 30 Days #30 tab 08/15/21 09/09/21 09/08/21 09:00 Rx carvediloL [Coreg] 25 mg PO Q12HR #60 tablet 08/15/21 09/09/21 09/09/21 09:00 Rx sevelamer HCL [Sevelamer HCl] 800 mg PO TID 30 Days #90 tab 08/15/21 09/09/21 09/08/21 09:00 Rx oxyCODONE /ACETAMINOPHEN [Percocet 1 tab PO Q4H PRN 5 Days #30 tablet 08/29/21 09/09/21 09/08/21 09:00 Rx 5/325 mg] NIFEdipine XL [Procardia Xl] 30 mg PO Q12HR #60 tablet 09/11/21 Unknown Rx ALPRAZolam [Xanax TAB] 0.25 mg PO Q8H PRN #12 tablet 09/12/21 Unknown Rx Clopidogrel [Plavix] 75 mg PO QDAY #90 tablet 09/12/21 Unknown Rx Lispro Insulin [HumaLOG] 0 unit SUB-Q ACHS units 09/12/21 Unknown Rx Pentoxifylline [TRENtal] 400 mg PO DAILY #90 tablet 09/12/21 Unknown Rx oxyCODONE /ACETAMINOPHEN [Percocet 1 tab PO Q6H PRN #10 tablet 09/12/21 Unknown Rx 5/325 mg] Active Medications: Generic Name Dose Route Start Last Admin Trade Name Freq PRN Reason Stop Dose Admin Acetaminophen 650 mg 09/08/21 18:05 09/12/21 00:01 Acetaminophen 325 Mg Tab PO 650 mg Q6H PRN Administration Pain, Mild (1-3) Acetaminophen 650 mg 09/08/21 18:05 Acetaminophen 650 Mg Rect Supp [place] Q6H PRN Pain MILD(1-3)/Fever >100.5/PALOMINO Apixaban 2.5 mg 09/12/21 22:00 09/13/21 09:47 Apixaban 2.5 Mg Tab PO 2.5 mg Q12HR SHRUTI Administration Protocol Carvedilol 12.5 mg 09/09/21 10:00 09/13/21 09:47 Carvedilol 12.5 Mg Tab PO 12.5 mg Q12HR SHRUTI Administration Clopidogrel Bisulfate 75 mg 09/11/21 10:00 09/13/21 09:46 Clopidogrel 75 Mg Tab PO 75 mg QDAY SHRUTI Administration Dextrose 50 ml 09/09/21 18:00 Dextrose 50% In Water (25gm) 50 Ml Syringe IV Q30MIN PRN Hypoglycemia Protocol Epoetin Darío-epbx 10,000 unit 09/11/21 12:00 09/11/21 23:15 Epoetin Darío-Epbx 10,000 Unit/1 Ml Vial SUB-Q 10,000 unit KEV SHRUTI Administration Furosemide 20 mg 09/13/21 10:00 09/13/21 09:47 Furosemide 20 Mg Tab PO 20 mg QDAY SHRUTI Administration Hydromorphone HCl 0.5 mg 09/09/21 10:30 09/12/21 23:06 Hydromorphone 0.5 Mg/0.5 Ml Inj IV 0.5 mg Q4H PRN Administration Pain , Severe (7-10) Levofloxacin/Dextrose 500 mg in 100 mls @ 66.667 mls/hr 09/11/21 10:00 09:46 Levaquin 500mg/100ml IV 09/13/21 23:59 66.667 mls/hr Q48HR SHRUTI Administration Protocol Sodium Chloride 100 mls @ 999 mls/hr 09/09/21 10:30 Nacl 0.9% IV KEV PRN Hypotension Vancomycin HCl 1 gm in 250 mls @ 167.007 mls/hr 09/11/21 22:00 09/12/21 00:42 Vancomycin/Ns 1 Gm/250 Ml IV 09/13/21 23:59 167.007 mls/hr TuThSa SHRUTI Administration Insulin Human Lispro 0 unit 09/09/21 22:00 09/13/21 08:40 Insulin Lispro 100 Unit/Ml SUB-Q Not Given ACHS [facility] Protocol Isosorbide Mononitrate 30 mg 09/09/21 10:00 09/13/21 09:46 Isosorbide Mononitrate Er 30 Mg Tab PO 30 mg QDAY SHRUTI Administration Nifedipine 30 mg 09/09/21 10:00 09/13/21 09:46 Nifedipine Xl 30 Mg Tab PO 30 mg QDAY SHRUTI Administration Oxycodone/Acetaminophen 1 tab 09/08/21 18:05 09/13/21 08:39 Oxycodone /Acetaminophen 5-325mg Tab PO 1 tab Q6H PRN Administration Pain, Moderate (4-6) Pantoprazole Sodium 20 mg 09/10/21 07:30 09/13/21 08:40 Pantoprazole 20 Mg Tab PO 20 mg QDAC SHRUTI Administration Pentoxifylline 400 mg 09/11/21 10:00 09/12/21 12:45 Pentoxifylline Er 400 Mg Tab PO 400 mg DAILY SHRUTI Administration Sevelamer Carbonate 800 mg 09/12/21 20:00 09/13/21 08:39 Sevelamer Carbonate 800 Mg Tab PO 800 mg TID SHRUTI Administration Sodium Chloride 10 ml 09/08/21 22:00 09/13/21 09:47 Sodium Chloride 0.9% 10 Ml Flush Syringe IV 10 ml BID SHRUTI Administration Sodium Chloride 10 ml 09/08/21 18:05 Sodium Chloride 0.9% 10 Ml Flush Syringe IV PRN PRN LINE FLUSH
[2021-09-13] MEDS: EPOETIN ALFA-EPBX 10,000 UNIT/1 ML VIAL SUB-Q SCH (14:29)
[2021-09-13] MEDS: HYDROmorphone 0.5 MG/0.5 ML INJ IV PRN ×2 (15:58→21:47)
[2021-09-13] MEDS: PENTOXIFYLLINE ER 400 MG TAB PO SCH (15:58)
[2021-09-13] MEDS: VANCOMYCIN/NS 1 GM/250 ML 1 GM/250 ML BAG IV SCH (23:01)
[2021-09-14] MEDS: HYDROmorphone 0.5 MG/0.5 ML INJ IV PRN ×2 (04:29→13:27)
--- NOTE | 2021-09-14 08:08 | Progress Note ---
Assessment and Plan Assessment and plan: This is a 56-year-old female with known past medical history of Deaf, ESRD on HD(T,R,Sa), HTN, DM, PVD s/p revascularization, chronic limbs ischemia, and medical noncompliance admitted for sepsis most likely due to LLE gangrene/cellulitus Hospital Course to Date: 09/09: LLE grangrene/cellullitis with foul odor noted. Patient also with leukocytosis, remains afebrile. Continue empiric IV abx for now, ID also consulted. Patient is s/p 2units of PRBCs, H&H improved this am. No s/s of any active bleeding, continue to trend H&H. According to patient's sister, patient eventually agreed to the Vascular Surgery recommendation for amputation and is scheduled to have her LLE amputated by Dr. Llamas. Vascular Surgery consulted. Anasarca and large volume ascites also reported from CTAP, orders placed for US paracentesis. 09/10: Mentation is unchanged. Plan for BKA today by Vascular Surgery. Patient remains afebrile, continue current IV Abx per ID. H&H remains stable. Patient to lerated HD overnight. US paracentesis pending. Per records patient was on Eliquis and Plavix, per family patient is noncompliant with meds. Resume meds if okay with Vascular Surgery. 09/11: S/p Left BKA and US paracentesis, 3.7L removed. Patient appears more awake and calm this am, tolerating PO intake, VSS. Continue PRN analgesia for pain control. Left stump noted with no complications noted. Home plavix resumed per Vascular Surgery. PT/OT ordered. Continue HD per Nephro. Patient is stable for transfer to Telemetry. 09/12: Patient is postop day 2 of left BKA stump is doing well per vascular. Discussed with vascular today we will restart her Eliquis. Patient is clinically stable for discharge but awaiting authorization from insurance company to go to subacute rehab. Discussed with ID patient does not need any antibiotics on discharge as BKA was not surgical care at this time. During this hospitalization the patient underwent paracentesis with 3.7 L removed we will recommend outpatient follow-up with GI and also primary care physician to continue to arrange paracentesis as needed. 09/13: Patient continues to show improvement, no shortness of breath, tolerating diet. she is clinically depressed and worse by knowlege of her limb loss and limitations, will obtain Psych consultation to assist. 09/14: Patient seen and examined venlafaxine resumed, mental health consult pending discussed with Nursing staff to obtain appropriate home med hx. Anticipate discharge in a.m. once placement is arranged Assessment and Plan #Sepsis #Leukocytosis #Left Lower Extremity iscehmia with Gangrene/Cellutis - Presented with LLE ischemia with gangrene and foul odor and leukocytosis - Patient is afebrile, VSS - Blood cultures with NGTD - ID consulted, appreciate recommendations - Continue current IV Abx by ID - Patient refused LLE amputation last admission - Per patient's sister, patient eventually agreed to the Vascular Surgery recommendation for amputation and is scheduled to have her LLE amputated by Dr. Llamas - Vascular Surgery consulted, appreciate recommendations - 09/10 s/p Left BKA by Vascular Surgery - Continue to F/U on cultures - Daily CBC monitor - Wound Care consulted #Peripheral Vascular Disease(PVD) #Chronic Limb ischemia #Left Lower Extremity Ischemia with gangrene - Chronic ischemia complicated by gangrene - Vascular Surgery recommended amputation last admission, patient refused at the time - Per patient's sister, patient eventually agreed to the Vascular Surgery recommendation for amputation and is scheduled to have her LLE amputated by Dr. Llamas. - Vascular Surgery Consulted, appreciate recommendations - 09/10 s/p Left BKA by Vascular Surgery - Wound care consulted - Per records patient was on Eliquis and Plavix, per family patient is noncompliant with meds. - Home plavix resumed by Vascular Surgery #Acute Metabolic Encephalopathy - most likely secondary to infectious process - Mentation improved this am, very [place] - CT head/Brain with no acute intracranial abnormalities - Continue IV abx, s/p left BKA - Avoid benzodiazepine to reduce the possibility of delirium - Maintenance of sleep-wake cycle #Hypertension - Updated home list pending - Resume home antihypertensives - Continue blood pressure monitor per protocol - Maintain SBP less than 160 #End-Stage Renal Disease(ESRD) on HD #Volume overload #Hyperkalemia #Noncompliance - Patient missed her previous dialysis session - Nephrology on consult, appreciated recommendation - Continue HD per Nephro - Strict intake and output - Avoid nephrotoxic medications; Renally dose medications - Monitor and replace electrolytes as needed #Large Volume Ascites - Noted from CTAP - 09/10 s/p US paracentesis, 3.7L removed #Acute Pain - due to LLE ischemia/gangrene - s/p left BKA - PRN Analgesia for pain control #Anemia of Chronic Disease - probably due to ESRD - presented with hgb of 6.1, s/p 2units of PRBCs - No s/s of any active bleeding - H&H remains stable - Continue to trend H&H - Epogen per Nephro - Transfuse for hgb less than 7 #Type 2 Diabetes Mellitus - SSI and BH check ACHS - Avoid hypoglycemia - While critically ill target blood glucose of 140-180 #GI/DVT Prophylaxis - PPI- Protonix - SCD to bilateral lower extremities while in bed #Advance Care Planning - Disease education done, care plan, diagnoses, and prognosis discussed with the patient's sister. Patient is a FULL code. Patient's family acknowledged and understanding and agreement with current care plan. History Interval history: Patient seen and examined this morning doing well no acute distress reported. HARD OF Hearing Hospitalist Physical - Physical exam Narrative exam: General: No acute distress. - EENT Eyes: Present: PERRL ENT: other (Very [place]) - Neck Neck: Present: normal ROM - Respiratory Respiratory effort: normal Respiratory: bilateral: diminished - Cardiovascular Rhythm: regular Heart Sounds: Present: S1 & S2 - Extremities Extremities: abnormal (left second digit and fifth digit necrosis. S/p Left BKA) Extremity abnormal: edema - Peripheral Assessment Generalized Skin Temperature: Warm Peripheral Pulses: within normal limits (RLE, s/p Left BKA) - Abdominal General gastrointestinal: soft, non-distended, normal bowel sounds - Integumentary Integumentary: Present: warm, necrosis of digits as noted above - Psychiatric Psychiatric: emotional mood/affect, cooperative - Neurologic Neurologic: moves all extremities, other (Awake and appropriate, following commands) - Allied Health Allied health notes reviewed: nursing, case management General - Constitutional Vitals: Temp Pulse Resp BP Pulse Ox 97.9 F 70 20 142/56 100 09/14/21 04:28 09/14/21 05:00 09/14/21 04:28 09/14/21 04:28 09/14/21 04:28 General appearance: Present: no acute distress, obese Results - Labs CBC & Chem 7: 09/12/21 04:18 09/12/21 04:18 Labs: Laboratory Last Values WBC 10.0 K/mm3 (4.5-11.0) 09/12/21 04:18 RBC 3.42 M/mm3 (3.65-5.03) L 09/12/21 04:18 Hgb 8.6 gm/dl (10.1-14.3) L 09/12/21 04:18 Hct 27.8 % (30.3-42.9) L 09/12/21 04:18 MCV 81 fl (79-97) 09/12/21 04:18 MCH 25 pg (28-32) L 09/12/21 04:18 MCHC 31 % (30-34) 09/12/21 04:18 RDW 24.6 % (13.2-15.2) H 09/12/21 04:18 Plt Count 365 K/mm3 (140-440) 09/12/21 04:18 Add Manual Diff Complete 09/09/21 04:41 Total Counted 100 09/09/21 04:41 Seg Neutrophils % Paste Worker 09/09/21 04:41 Seg Neuts % (Manual) 96.0 % (40.0-70.0) H 09/09/21 04:41 Band Neutrophils % 0 % 09/09/21 04:41 Lymphocytes % (Manual) 3.0 % (13.4-35.0) L 09/09/21 04:41 Reactive Lymphs % (Man) 0 % 09/09/21 04:41 Monocytes % (Manual) 1.0 % (0.0-7.3) 09/09/21 04:41 Eosinophils % (Manual) 0 % (0.0-4.3) 09/09/21 04:41 Basophils % (Manual) 0 % (0.0-1.8) 09/09/21 04:41 Metamyelocytes % 0 % 09/09/21 04:41 Myelocytes % 0 % 09/09/21 04:41 Promyelocytes % 0 % 09/09/21 04:41 Blast Cells % 0 % 09/09/21 04:41 Nucleated RBC % 1.0 % (0.0-0.9) H 09/09/21 04:41 Seg Neutrophils # Man 25.0 K/mm3 (1.8-7.7) H 09/09/21 04:41 Band Neutrophils # 0.0 K/mm3 09/09/21 04:41 Lymphocytes # (Manual) 0.8 K/mm3 (1.2-5.4) L 09/09/21 04:41 Abs React Lymphs (Man) 0.0 K/mm3 09/09/21 04:41 Monocytes # (Manual) 0.3 K/mm3 (0.0-0.8) 09/09/21 04:41 Eosinophils # (Manual) 0.0 K/mm3 (0.0-0.4) 09/09/21 04:41 Basophils # (Manual) 0.0 K/mm3 (0.0-0.1) 09/09/21 04:41 Metamyelocytes # 0.0 K/mm3 09/09/21 04:41 Myelocytes # 0.0 K/mm3 09/09/21 04:41 Promyelocytes # 0.0 K/mm3 09/09/21 04:41 Blast Cells # 0.0 K/mm3 09/09/21 04:41 WBC Morphology Not Reportable 09/09/21 04:41 Hypersegmented Neuts Not Reportable 09/09/21 04:41 Hyposegmented Neuts Not Reportable 09/09/21 04:41 Hypogranular Neuts Not Reportable 09/09/21 04:41 Smudge Cells Not Reportable 09/09/21 04:41 Toxic Granulation Not Reportable 09/09/21 04:41 Toxic Vacuolation Not Reportable 09/09/21 04:41 Dohle Bodies Not Reportable 09/09/21 04:41 Pelger-Huet Anomaly Not Reportable 09/09/21 04:41 Cosme Rods Not Reportable 09/09/21 04:41 Platelet Estimate Consistent w auto 09/09/21 04:41 Clumped Platelets Not Reportable 09/09/21 04:41 Plt Clumps, EDTA Not Reportable 09/09/21 04:41 Large Platelets Not Reportable 09/09/21 04:41 Giant Platelets Not Reportable 09/09/21 04:41 Platelet Satelliting Not Reportable 09/09/21 04:41 Plt Morphology Comment Not Reportable 09/09/21 04:41 RBC Morphology Not Reportable 09/09/21 04:41 Dimorphic RBCs Not Reportable 09/09/21 04:41 Polychromasia Not Reportable 09/09/21 04:41 Hypochromasia 2+ 09/09/21 04:41 Poikilocytosis 1+ 09/09/21 04:41 Anisocytosis 2+ 09/09/21 04:41 Microcytosis Not Reportable 09/09/21 04:41 Macrocytosis Not Reportable 09/09/21 04:41 Spherocytes Not Reportable 09/09/21 04:41 Pappenheimer Bodies Not Reportable 09/09/21 04:41 Sickle Cells Not Reportable 09/09/21 04:41 Target Cells Not Reportable 09/09/21 04:41 Tear Drop Cells Not Reportable 09/09/21 04:41 Ovalocytes Rare 09/09/21 04:41 Helmet Cells Not Reportable 09/09/21 04:41 [place]-Maramec Bodies Not Reportable 09/09/21 04:41 Sunset Rings Not Reportable 09/09/21 04:41 Angelina Cells Not Reportable 09/09/21 04:41 Bite Cells Not Reportable 09/09/21 04:41 Crenated Cell Not Reportable 09/09/21 04:41 Elliptocytes Few 09/09/21 04:41 Acanthocytes (Spur) Few 09/09/21 04:41 Rouleaux Not Reportable 09/09/21 04:41 Hemoglobin C Crystals Not Reportable 09/09/21 04:41 Schistocytes Not Reportable 09/09/21 04:41 Malaria parasites Not Reportable 09/09/21 04:41 Jozef Bodies Not Reportable 09/09/21 04:41 Hem Pathologist Commnt No 09/09/21 04:41 PT 19.1 Sec. (12.2-14.9) H 09/08/21 15:56 INR 1.42 (0.87-1.13) H 09/08/21 15:56 APTT 37.7 Sec. (24.2-36.6) H 09/08/21 15:56 Sodium 138 mmol/L (137-145) 09/12/21 04:18 Potassium 4.3 mmol/L (3.6-5.0) 09/12/21 04:18 Chloride 99.9 mmol/L (98-107) 09/12/21 04:18 Carbon Dioxide 24 mmol/L (22-30) 09/12/21 04:18 Anion Gap 18 mmol/L 09/12/21 04:18 BUN 32 mg/dL (7-17) H 09/12/21 04:18 Creatinine 4.7 mg/dL (0.6-1.2) H 09/12/21 04:18 Estimated GFR 12 ml/min 09/12/21 04:18 BUN/Creatinine Ratio 7 % 09/12/21 04:18 Glucose 97 mg/dL (65-100) 09/12/21 04:18 POC Glucose 69 mg/dL (70-105) L 09/14/21 07:24 Lactic Acid 1.40 mmol/L (0.7-2.0) 09/09/21 04:41 Calcium 8.4 mg/dL (8.4-10.2) 09/12/21 04:18 Total Bilirubin 1.60 mg/dL (0.1-1.2) H 09/09/21 04:41 Direct Bilirubin 0.4 mg/dL (0-0.2) H 09/08/21 15:56 Indirect Bilirubin 0.1 mg/dL 09/08/21 15:56 AST 14 units/L (5-40) 09/09/21 04:41 ALT 7 units/L (7-56) 09/09/21 04:41 Alkaline Phosphatase 170 units/L (35-129) H 09/09/21 04:41 Ammonia 19.0 umol/L (25-60) L 09/08/21 15:56 Total Creatine Kinase 77 units/L (30-135) 09/08/21 15:56 Total Protein 7.3 g/dL (6.3-8.2) 09/09/21 04:41 Albumin 2.5 g/dL (3.9-5) L 09/09/21 04:41 Albumin/Globulin Ratio 0.5 % 09/09/21 04:41 Nasal Screen MRSA (PCR) Positive (Negative) 09/08/21 05:30 Random Vancomycin 10.4 ug/mL (0-40.0) 09/11/21 04:27 Blood Type A POSITIVE 09/08/21 20:40 Antibody Screen Negative 09/08/21 20:40 Crossmatch See Detail 09/08/21 20:40 Microbiology: Microbiology 09/08/21 15:56 Peripheral/Venous Blood Culture - Final NO GROWTH AFTER 5 DAYS 09/08/21 15:56 Peripheral/Venous Blood Culture - Final NO GROWTH AFTER 5 DAYS Active Medications - Current Medications Current Medications: Generic Name Dose Route Start Last Admin Trade Name Freq PRN Reason Stop Dose Admin Acetaminophen 650 mg 09/08/21 18:05 09/12/21 00:01 Acetaminophen 325 Mg Tab PO 650 mg Q6H PRN Administration Pain, Mild (1-3) Acetaminophen 650 mg 09/08/21 18:05 Acetaminophen 650 Mg Rect Supp [place] Q6H PRN Pain MILD(1-3)/Fever >100.5/PALOMINO Apixaban 2.5 mg 09/12/21 22:00 09/13/21 23:34 Apixaban 2.5 Mg Tab PO 2.5 mg Q12HR SHRUTI Administration Protocol Carvedilol 12.5 mg 09/09/21 10:00 09/13/21 23:01 Carvedilol 12.5 Mg Tab PO 12.5 mg Q12HR SHRUTI Administration Clopidogrel Bisulfate 75 mg 09/11/21 10:00 09/13/21 09:46 Clopidogrel 75 Mg Tab PO 75 mg QDAY SHRUTI Administration Dextrose 50 ml 09/09/21 18:00 Dextrose 50% In Water (25gm) 50 Ml Syringe IV Q30MIN PRN Hypoglycemia Protocol Epoetin Darío-epbx 10,000 unit 09/11/21 12:00 09/13/21 14:29 Epoetin Darío-Epbx 10,000 Unit/1 Ml Vial SUB-Q 10,000 unit KEV SHRUTI Administration Furosemide 20 mg 09/13/21 10:00 09/13/21 09:47 Furosemide 20 Mg Tab PO 20 mg QDAY SHRUTI Administration Hydromorphone HCl 0.5 mg 09/09/21 10:30 09/14/21 04:29 Hydromorphone 0.5 Mg/0.5 Ml Inj IV 0.5 mg Q4H PRN Administration Pain , Severe (7-10) Sodium Chloride 100 mls @ 999 mls/hr 09/09/21 10:30 Nacl 0.9% IV KEV PRN Hypotension Insulin Human Lispro 0 unit 09/09/21 22:00 09/13/21 23:01 Insulin Lispro 100 Unit/Ml SUB-Q Not Given ACHS SHRUTI Protocol Isosorbide Mononitrate 30 mg 09/09/21 10:00 09/13/21 09:46 Isosorbide Mononitrate Er 30 Mg Tab PO 30 mg QDAY SHRUTI Administration Nifedipine 30 mg 09/09/21 10:00 09/13/21 09:46 Nifedipine Xl 30 Mg Tab PO 30 mg QDAY SHRUTI Administration Oxycodone/Acetaminophen 1 tab 09/08/21 18:05 09/13/21 22:59 Oxycodone /Acetaminophen 5-325mg Tab PO 1 tab Q6H PRN Administration Pain, Moderate (4-6) Pantoprazole Sodium 20 mg 09/10/21 07:30 09/13/21 08:40 Pantoprazole 20 Mg Tab PO 20 mg QDAC SHRUTI Administration Pentoxifylline 400 mg 09/11/21 10:00 09/13/21 15:58 Pentoxifylline Er 400 Mg Tab PO 400 mg DAILY SHRUTI Administration Sevelamer Carbonate 800 mg 09/12/21 20:00 09/13/21 23:01 Sevelamer Carbonate 800 Mg Tab PO 800 mg TID SHRUTI Administration Sodium Chloride 10 ml 09/08/21 22:00 09/13/21 23:01 Sodium Chloride 0.9% 10 Ml Flush Syringe IV 10 ml BID SHRUTI Administration Sodium Chloride 10 ml 09/08/21 18:05 Sodium Chloride 0.9% 10 Ml Flush Syringe IV PRN PRN LINE FLUSH Nutrition/Malnutrition Assess - Dietary Evaluation Nutrition/Malnutrition Findings: Nutrition Notes Start: 09/09/21 17:01 Freq: Status: Active Protocol: Document 09/10/21 16:52 ASHLI (Rec: 09/10/21 17:02 ASHLI [id number]) Nutrition Notes Initial or Follow up Brief Note Current Diagnosis CKD (stage V CKD),Diabetes, Sepsis,Hypertension Other Pertinent Diagnosis ESRD+HD, PVD, R-Foot Ischemia, L-LE Gangrene, Anasarca, Leukocytosis... Current Diet NPO (09/10 00:01). Height 5 ft Weight 72.4 kg [place] Body Weight (kg) 45.45 BMI 31.1 Weight change and time frame No body weight change reported in 1 day. Weight Status Obese Subjective/Other Information RD consult for nutrition education assessment. Pt currently on NPO. Paracentesis performed on , well tolerated, according to Progress notes. Procedure planned for 09/10: Sonu DOLAN, according to Consultation note. Pt still in critical condition , not a candidate for Nutrition Education at the time, will assess feasibility on F/U. Percent of energy/protein needs met: Pt currently on NPO. Nutrition Intervention Follow-Up By: 09/16/21 Additional Comments When pertinent continue monitoring food tolerance, %PO intake of meals, and BM.
[2021-09-14] MEDS: NIFEdipine XL 30 MG TAB PO SCH (09:50)
[2021-09-14] MEDS: oxyCODONE /ACETAMINOPHEN 5-325MG TAB PO PRN ×2 (09:50→22:19)
[2021-09-14] MEDS: PANTOPRAZOLE 20 MG TAB PO SCH (09:51)
[2021-09-14] MEDS: CLOPIDOGREL 75 MG TAB PO SCH (09:51)
[2021-09-14] MEDS: INSULIN LISPRO 100 UNIT/ML SUB-Q SCH ×4 (09:51→22:00)
[2021-09-14] MEDS: FUROSEMIDE 20 MG TAB PO SCH (09:51)
[2021-09-14] MEDS: APIXABAN 2.5 MG TAB PO SCH ×2 (09:51→22:19)
[2021-09-14] MEDS: carvediloL 12.5 MG TAB PO SCH ×2 (09:51→22:19)
[2021-09-14] MEDS: SEVELAMER CARBONATE 800 MG TAB PO SCH ×3 (09:51→22:19)
[2021-09-14] MEDS: PENTOXIFYLLINE ER 400 MG TAB PO SCH (09:52)
--- NOTE | 2021-09-14 10:41 | Consultation ---
History of Present Illness - Reason for Consult Consult date: 09/14/21 Reason for consult: Mental health evaluation - Chief Complaint Chief complaint: She is not acting like herself - History of Present Psychiatric Illness HPI: 56 YO Female with ESRD on HD(T,R,Sa), DM, HTN, Deaf/Mute, Noncompliance, PVD S/P Revascularizaion, RLE Ischemia complicated by Rest Pain but patient refused Amputation as recommended by Vascular Surgery team, Chronic Extremity gangrene. Patient is deaf and mute and unable to provide detailed history. Patient history provided by sister who was made available by telephone for interview. As per sister the patient has experienced increased confusion, diminished oral intake and as a result the patient missed her previous dialysis session. EMS was notified and upon arrival the patient was found to be in distress and subsequent transported to [facility] for further care and evaluation of the aforementioned symptoms. The patient was seen and evaluated in the emergency department. All lab and imaging studies reviewed. Patient found to have sepsis suspected secondary to cellulitis, end-stage renal disease, metabolic acidosis, hyperkalemia. Nephrology team consulted. Patient sister acknowledges subjective fever but denies chills, chest pain, palpitation, productive cough, skin rash, recent contact, known exposure to COVID-19. Prior admission on 08/27/2021 reviewed. All medication listed at time of admission has been reconciled. Advanced care planning conducted in ED. The patient was seen this morning. Patient is deaf with speech impediment and unable to provide detailed information. Assessment was conducted via written. The patient is calm, alert and oriented to self. The patient mumbles "I want to go home." She denies being depressed and does not seem to be excessively anxious. She denies suicidal/homicidal ideation and denies hallucinations. Attempted to reach patient's sister @ [phone]. PAST PSYCHIATRIC HISTORY: Unable to obtain PAST MEDICAL HISTORY: Unable to obtain Family Psychiatric History: Unable to obtain SOCIAL HISTORY Unable to obtain REVIEW OF SYSTEMS Unable to obtain MENTAL STATUS EXAMINATION Unable to obtain Assessment Mental health evaluation Treatment Plan Continue home meds. Sitter: Defer to primary Medical: Per primary Disposition: Do not recommend acute psychiatric inpatient treatment at this time. Archeology Professor will provide patient with psychiatric outpatient resources. Will sign off. Thanks Case discussed with Dr. Landin Medications and Allergies Allergies Allergy/AdvReac Type Severity Reaction Status Date / Time No Known Allergies Allergy Verified 09/08/21 14:34 Home Medications Medication Instructions Recorded Confirmed Last Taken Type Acetaminophen [Acetaminophen TAB] 650 mg PO Q4H PRN tablet 04/01/21 09/09/21 07/06/21 Rx Apixaban [Eliquis] 2.5 mg PO BID #180 07/07/21 09/09/21 09/08/21 09:00 Rx Furosemide [Lasix TAB] 20 mg PO QDAY #30 tablet 08/15/21 09/09/21 09/08/21 09:00 Rx ISOSORBIDE MONOnitrate [Imdur ER] 30 mg PO QDAY #30 tablet 08/15/21 09/09/21 09/08/21 09:00 Rx Pantoprazole [Protonix TAB] 20 mg PO QDAC tablet. 08/15/21 09/09/21 09/08/21 09:00 Rx Valsartan [Diovan] 80 mg PO QDAY 30 Days #30 tab 08/15/21 09/09/21 09/08/21 09:00 Rx carvediloL [Coreg] 25 mg PO Q12HR #60 tablet 08/15/21 09/09/21 09/09/21 09:00 Rx sevelamer HCL [Sevelamer HCl] 800 mg PO TID 30 Days #90 tab 08/15/21 09/09/21 09/08/21 09:00 Rx oxyCODONE /ACETAMINOPHEN [Percocet 1 tab PO Q4H PRN 5 Days #30 tablet 08/29/21 09/09/21 09/08/21 09:00 Rx 5/325 mg] NIFEdipine XL [Procardia Xl] 30 mg PO Q12HR #60 tablet 09/11/21 Unknown Rx ALPRAZolam [Xanax TAB] 0.25 mg PO Q8H PRN #12 tablet 09/12/21 Unknown Rx Clopidogrel [Plavix] 75 mg PO QDAY #90 tablet 09/12/21 Unknown Rx Lispro Insulin [HumaLOG] 0 unit SUB-Q ACHS units 09/12/21 Unknown Rx Pentoxifylline [TRENtal] 400 mg PO DAILY #90 tablet 09/12/21 Unknown Rx oxyCODONE /ACETAMINOPHEN [Percocet 1 tab PO Q6H PRN #10 tablet 09/12/21 Unknown Rx 5/325 mg] Active Meds: Active Medications Acetaminophen (Acetaminophen 325 Mg Tab) 650 mg PO Q6H PRN PRN Reason: Pain, Mild (1-3) Last Admin: 09/12/21 00:01 Dose: 650 mg Acetaminophen (Acetaminophen 650 Mg Rect Supp) 650 mg [place] Q6H PRN PRN Reason: Pain MILD(1-3)/Fever >100.5/PALOMINO Apixaban (Apixaban 2.5 Mg Tab) 2.5 mg PO Q12HR [facility]; Protocol Last Admin: 09/14/21 09:51 Dose: 2.5 mg Carvedilol (Carvedilol 12.5 Mg Tab) 12.5 mg PO Q12HR [facility] Last Admin: 09/14/21 09:51 Dose: 12.5 mg Clopidogrel Bisulfate (Clopidogrel 75 Mg Tab) 75 mg PO QDAY [facility] Last Admin: 09/14/21 09:51 Dose: 75 mg Dextrose (Dextrose 50% In Water (25gm) 50 Ml Syringe) 50 ml IV Q30MIN PRN; Protocol PRN Reason: Hypoglycemia Last Admin: 09/14/21 10:35 Dose: 50 ml Epoetin Darío-epbx (Epoetin Darío-Epbx 10,000 Unit/1 Ml Vial) 10,000 unit SUB-Q KEV [facility] Last Admin: 09/13/21 14:29 Dose: 10,000 unit Furosemide (Furosemide 20 Mg Tab) 20 mg PO QDAY [facility] Last Admin: 09/14/21 09:51 Dose: 20 mg Hydromorphone HCl (Hydromorphone 0.5 Mg/0.5 Ml Inj) 0.5 mg IV Q4H PRN PRN Reason: Pain , Severe (7-10) Last Admin: 09/14/21 04:29 Dose: 0.5 mg Sodium Chloride (Nacl 0.9%) 100 mls @ 999 mls/hr IV KEV PRN PRN Reason: Hypotension Insulin Human Lispro (Insulin Lispro 100 Unit/Ml) 0 unit SUB-Q ACHS [facility]; Protocol Last Admin: 09/14/21 09:51 Dose: Not Given Isosorbide Mononitrate (Isosorbide Mononitrate Er 30 Mg Tab) 30 mg PO QDAY [facility] Last Admin: 09/14/21 09:51 Dose: 30 mg Nifedipine (Nifedipine Xl 30 Mg Tab) 30 mg PO QDAY [facility] Last Admin: 09/14/21 09:50 Dose: 30 mg Oxycodone/Acetaminophen (Oxycodone /Acetaminophen 5-325mg Tab) 1 tab PO Q6H PRN PRN Reason: Pain, Moderate (4-6) Last Admin: 09/14/21 09:50 Dose: 1 tab Pantoprazole Sodium (Pantoprazole 20 Mg Tab) 20 mg PO QDAC [facility] Last Admin: 09/14/21 09:51 Dose: 20 mg Pentoxifylline (Pentoxifylline Er 400 Mg Tab) 400 mg PO DAILY [facility] Last Admin: 09/14/21 09:52 Dose: 400 mg Sevelamer Carbonate (Sevelamer Carbonate 800 Mg Tab) 800 mg PO TID [facility] Last Admin: 09/14/21 09:51 Dose: 800 mg Sodium Chloride (Sodium Chloride 0.9% 10 Ml Flush Syringe) 10 ml IV BID [facility] Last Admin: 09/14/21 09:52 Dose: 10 ml Sodium Chloride (Sodium Chloride 0.9% 10 Ml Flush Syringe) 10 ml IV PRN PRN PRN Reason: LINE FLUSH Mental Status Exam - Vital signs Last Vital Signs Temp 97.8 F 09/14/21 07:51 Pulse 72 09/14/21 09:51 Resp 18 09/14/21 08:34 BP 141/66 09/14/21 09:51 Pulse Ox 97 09/14/21 08:34 Results Result Diagrams: 09/12/21 04:18 09/12/21 04:18 Abnormal lab results 09/13/21 09/13/21 09/14/21 Range/Units 11:15 15:54 07:24 POC Glucose 123 H 133 H 69 L (70-105) mg/dL 09/14/21 Range/Units 10:15 POC Glucose 69 L (70-105) mg/dL All other labs normal.
[2021-09-14] MEDS ORDERED: hydrOXYzine PAMOATE 25 MG CAP PO PRN (11:02)
[2021-09-14] MEDS: VENLAFAXINE 37.5 MG TAB PO SCH (13:27)
--- NOTE | 2021-09-14 15:11 | Progress Note ---
Assessment and Plan - Patient Problems (1) Hyperkalemia Current Visit: Yes Status: Acute Plan to address problem: Resolved with dialysis. Follow-up potassium periodically (2) Peripheral vascular disease Current Visit: Yes Status: Acute Plan to address problem: Status post left below-knee amputation with improvement. Continue management by vascular surgeon. Psychiatrist has been consulted by primary attending to evaluate depression post amputation (3) ESRD (end stage renal disease) on dialysis Current Visit: No Status: Acute Plan to address problem: Continue hemodialysis per schedule. (4) Hypertensive chronic kidney disease with stage 5 chronic kidney disease or end stage renal disease Current Visit: No Status: Acute Plan to address problem: Follow-up blood pressure on current medications (5) Type 2 diabetes mellitus with diabetic chronic kidney disease Current Visit: No Status: Acute Plan to address problem: Blood sugar control by primary attending. Subjective Date of service: 09/14/21 Principal diagnosis: ESRD Interval history: Patient seen lying in bed. She has no complaints. Objective - Exam Narrative Exam: Middle-aged -English female lying in bed in no acute distress HEENT: NCAT, pink oral mucous membrane Neck: Supple, no venous distention CVS: S1S2 RRR with no murmur, rub or gallop Chest: Clear to auscultation Abdomen: Protuberant, soft, nontender, no organomegaly, bowel sounds are present Extremities: No edema. Dressing over below-knee amputation Neuro: Awake, alert no focal deficits - Vital Signs Vital signs: Vital Signs - 12hr 09/14/21 09/14/21 09/14/21 04:28 05:00 07:51 Temperature 97.9 F 97.8 F Pulse Rate 66 70 70 Pulse Rate [ Apical] Respiratory 20 18 Rate Blood Pressure 142/56 141/66 O2 Sat by Pulse 100 96 Oximetry 09/14/21 09/14/21 09/14/21 08:32 08:34 09:51 Temperature Pulse Rate 72 72 72 Pulse Rate [ 72 Apical] Respiratory 18 Rate Blood Pressure 141/66 O2 Sat by Pulse 97 Oximetry 09/14/21 11:47 Temperature 98.0 F Pulse Rate 71 Pulse Rate [ Apical] Respiratory 18 Rate Blood Pressure 152/58 O2 Sat by Pulse 97 Oximetry - Lab 09/12/21 04:18 09/12/21 04:18 Most recent lab results Calcium 8.4 mg/dL (8.4-10.2) 09/12/21 04:18 Medications & Allergies - Medications Allergies/Adverse Reactions: Allergies No Known Allergies Allergy (Verified 09/08/21 14:34) Home Medications: Home Medications Medication Instructions Recorded Confirmed Last Taken Type Acetaminophen [Acetaminophen TAB] 650 mg PO Q4H PRN tablet 04/01/21 09/09/21 07/06/21 Rx Apixaban [Eliquis] 2.5 mg PO BID #180 07/07/21 09/09/21 09/08/21 09:00 Rx Furosemide [Lasix TAB] 20 mg PO QDAY #30 tablet 08/15/21 09/09/21 09/08/21 09:00 Rx ISOSORBIDE MONOnitrate [Imdur ER] 30 mg PO QDAY #30 tablet 08/15/21 09/09/21 09/08/21 09:00 Rx Pantoprazole [Protonix TAB] 20 mg PO QDAC tablet. 08/15/21 09/09/21 09/08/21 09:00 Rx Valsartan [Diovan] 80 mg PO QDAY 30 Days #30 tab 08/15/21 09/09/21 09/08/21 09:00 Rx carvediloL [Coreg] 25 mg PO Q12HR #60 tablet 08/15/21 09/09/21 09/09/21 09:00 Rx sevelamer HCL [Sevelamer HCl] 800 mg PO TID 30 Days #90 tab 08/15/21 09/09/21 09/08/21 09:00 Rx oxyCODONE /ACETAMINOPHEN [Percocet 1 tab PO Q4H PRN 5 Days #30 tablet 08/29/21 09/09/21 09/08/21 09:00 Rx 5/325 mg] NIFEdipine XL [Procardia Xl] 30 mg PO Q12HR #60 tablet 09/11/21 Unknown Rx ALPRAZolam [Xanax TAB] 0.25 mg PO Q8H PRN #12 tablet 09/12/21 Unknown Rx Clopidogrel [Plavix] 75 mg PO QDAY #90 tablet 09/12/21 Unknown Rx Lispro Insulin [HumaLOG] 0 unit SUB-Q ACHS units 09/12/21 Unknown Rx Pentoxifylline [TRENtal] 400 mg PO DAILY #90 tablet 09/12/21 Unknown Rx oxyCODONE /ACETAMINOPHEN [Percocet 1 tab PO Q6H PRN #10 tablet 09/12/21 Unknown Rx 5/325 mg] Active Medications: Generic Name Dose Route Start Last Admin Trade Name Freq PRN Reason Stop Dose Admin Acetaminophen 650 mg 09/08/21 18:05 09/12/21 00:01 Acetaminophen 325 Mg Tab PO 650 mg Q6H PRN Administration Pain, Mild (1-3) Acetaminophen 650 mg 09/08/21 18:05 Acetaminophen [address] Q6H PRN Pain MILD(1-3)/Fever >100.5/PALOMINO Apixaban 2.5 mg 09/12/21 22:00 09/14/21 09:51 Apixaban 2.5 Mg Tab PO 2.5 mg Q12HR SHRUTI Administration Protocol Carvedilol 12.5 mg 09/09/21 10:00 09/14/21 09:51 Carvedilol 12.5 Mg Tab PO 12.5 mg Q12HR SHRUTI Administration Clopidogrel Bisulfate 75 mg 09/11/21 10:00 09/14/21 09:51 Clopidogrel 75 Mg Tab PO 75 mg QDAY SHRUTI Administration Dextrose 50 ml 09/09/21 18:00 09/14/21 10:35 Dextrose 50% In Water (25gm) 50 Ml Syringe IV 50 ml Q30MIN PRN Administration Hypoglycemia Protocol Epoetin Darío-epbx 10,000 unit 09/11/21 12:00 09/13/21 14:29 Epoetin Darío-Epbx 10,000 Unit/1 Ml Vial SUB-Q 10,000 unit KEV SHRUTI Administration Furosemide 20 mg 09/13/21 10:00 09/14/21 09:51 Furosemide 20 Mg Tab PO 20 mg QDAY SHRUTI Administration Hydromorphone HCl 0.5 mg 09/09/21 10:30 09/14/21 13:27 Hydromorphone 0.5 Mg/0.5 Ml Inj IV 0.5 mg Q4H PRN Administration Pain , Severe (7-10) Hydroxyzine Pamoate 25 mg 09/14/21 11:02 Hydroxyzine Pamoate 25 Mg Cap PO Q6H PRN Anxiety Sodium Chloride 100 mls @ 999 mls/hr 09/09/21 10:30 Nacl 0.9% IV KEV PRN Hypotension Insulin Human Lispro 0 unit 09/09/21 22:00 09/14/21 12:29 Insulin Lispro 100 Unit/Ml SUB-Q Not Given ACHS SHRUTI Protocol Isosorbide Mononitrate 30 mg 09/09/21 10:00 09/14/21 09:51 Isosorbide Mononitrate Er 30 Mg Tab PO 30 mg QDAY SHRUTI Administration Nifedipine 30 mg 09/09/21 10:00 09/14/21 09:50 Nifedipine Xl 30 Mg Tab PO 30 mg QDAY SHRUTI Administration Oxycodone/Acetaminophen 1 tab 09/08/21 18:05 09/14/21 09:50 Oxycodone /Acetaminophen 5-325mg Tab PO 1 tab Q6H PRN Administration Pain, Moderate (4-6) Pantoprazole Sodium 20 mg 09/10/21 07:30 09/14/21 09:51 Pantoprazole 20 Mg Tab PO 20 mg QDAC SHRUTI Administration Pentoxifylline 400 mg 09/11/21 10:00 09/14/21 09:52 Pentoxifylline Er 400 Mg Tab PO 400 mg DAILY SHRUTI Administration Sevelamer Carbonate 800 mg 09/12/21 20:00 09/14/21 13:27 Sevelamer Carbonate 800 Mg Tab PO 800 mg TID SHRUTI Administration Sodium Chloride 10 ml 09/08/21 22:00 09/14/21 09:52 Sodium Chloride 0.9% 10 Ml Flush Syringe IV 10 ml BID SHRUTI Administration Sodium Chloride 10 ml 09/08/21 18:05 Sodium Chloride 0.9% 10 Ml Flush Syringe IV PRN PRN LINE FLUSH Venlafaxine HCl 37.5 mg 09/14/21 12:00 09/14/21 13:27 Venlafaxine 37.5 Mg Tab PO 37.5 mg DAILY SHRUTI Administration
[2021-09-15] MEDS: HYDROmorphone 0.5 MG/0.5 ML INJ IV PRN (05:29)
[2021-09-15 05:34] LABS: Hematocrit 23.2 % (30.3-42.9); Hemoglobin 7.2 gm/dl (10.1-14.3); Mean Corpuscular HGB Conc 31 % (30-34); Mean Corpuscular Volume 83 fl (79-97); Platelet Count 383 K/mm3 (140-440); Red Blood Count 2.79 M/mm3 (3.65-5.03)
[2021-09-15 05:54] LABS: Calcium 8.8 mg/dL (8.4-10.2)
[2021-09-15 06:44] LABS: Anisocytosis 2+; Basophils % (Manual) 0 % (0.0-1.8); Eosinophils % (Manual) 0 % (0.0-4.3); Hypochromasia 1+; Total Cells Counted 100
[2021-09-15 06:45] LABS: Ovalocytes 1+
[2021-09-15 06:47] LABS: Platelet Estimate Consistent w Auto
[2021-09-15] MEDS: INSULIN LISPRO 100 UNIT/ML SUB-Q SCH ×2 (07:30→11:30)
--- NOTE | 2021-09-15 08:07 | Progress Note ---
Assessment and Plan - Patient Problems (1) Hyperkalemia Current Visit: Yes Status: Acute Plan to address problem: Serum potassium levels have normalized with dialysis. Counseled patient on the importance of a low potassium diet. (2) Peripheral vascular disease Current Visit: Yes Status: Chronic Plan to address problem: Status post left below the knee amputation. Continue further follow-up with vascular surgery. (3) ESRD (end stage renal disease) on dialysis Current Visit: No Status: Chronic Plan to address problem: Patient is currently stable on Wednesday//Wednesday inpatient hemodialysis schedule. No acute indications for dialysis this morning. We will continue to monitor. (4) Diabetes Current Visit: No Status: Chronic Qualifiers: Laterality: right Plan to address problem: Diabetes management per primary attending. (5) Hypertensive chronic kidney disease with stage 5 chronic kidney disease or end stage renal disease Current Visit: No Status: Chronic Plan to address problem: Monitor blood pressures under current regimen. Subjective Date of service: 09/15/21 Principal diagnosis: ESRD Interval history: No acute changes at this time. Objective - Vital Signs Vital signs: Vital Signs - 12hr 09/14/21 09/15/21 09/15/21 22:19 00:00 05:00 Pulse Rate 83 78 Pulse Rate [ 79 Apical] Respiratory 18 Rate Blood Pressure 173/70 O2 Sat by Pulse 97 Oximetry - General Appearance General appearance: well-developed, appears stated age EENT: ATNC Neck: no JVD, no thyromegaly Respiratory: Present: Clear to Ascultation, Normal Exam Cardiology: regular Gastrointestinal: normal Integumentary: no rash Neurologic: no focal deficit Musculoskeletal: deferred Psychiatric: cooperative - Lab 09/15/21 05:24 09/15/21 05:24 Most recent lab results Calcium 8.8 mg/dL (8.4-10.2) 09/15/21 05:24 - Allied health notes Allied health notes reviewed: nursing Medications & Allergies - Medications Allergies/Adverse Reactions: Allergies No Known Allergies Allergy (Verified 09/08/21 14:34) Home Medications: Home Medications Medication Instructions Recorded Confirmed Last Taken Type Acetaminophen [Acetaminophen TAB] 650 mg PO Q4H PRN tablet 04/01/21 09/09/21 07/06/21 Rx Apixaban [Eliquis] 2.5 mg PO BID #180 07/07/21 09/09/21 09/08/21 09:00 Rx Furosemide [Lasix TAB] 20 mg PO QDAY #30 tablet 08/15/21 09/09/21 09/08/21 09:00 Rx ISOSORBIDE MONOnitrate [Imdur ER] 30 mg PO QDAY #30 tablet 08/15/21 09/09/21 09/08/21 09:00 Rx Pantoprazole [Protonix TAB] 20 mg PO QDAC tablet. 08/15/21 09/09/21 09/08/21 09:00 Rx Valsartan [Diovan] 80 mg PO QDAY 30 Days #30 tab 08/15/21 09/09/21 09/08/21 09:00 Rx carvediloL [Coreg] 25 mg PO Q12HR #60 tablet 08/15/21 09/09/21 09/09/21 09:00 Rx sevelamer HCL [Sevelamer HCl] 800 mg PO TID 30 Days #90 tab 08/15/21 09/09/21 09/08/21 09:00 Rx oxyCODONE /ACETAMINOPHEN [Percocet 1 tab PO Q4H PRN 5 Days #30 tablet 08/29/21 09/09/21 09/08/21 09:00 Rx 5/325 mg] NIFEdipine XL [Procardia Xl] 30 mg PO Q12HR #60 tablet 09/11/21 Unknown Rx ALPRAZolam [Xanax TAB] 0.25 mg PO Q8H PRN #12 tablet 09/12/21 Unknown Rx Clopidogrel [Plavix] 75 mg PO QDAY #90 tablet 09/12/21 Unknown Rx Lispro Insulin [HumaLOG] 0 unit SUB-Q ACHS units 09/12/21 Unknown Rx Pentoxifylline [TRENtal] 400 mg PO DAILY #90 tablet 09/12/21 Unknown Rx oxyCODONE /ACETAMINOPHEN [Percocet 1 tab PO Q6H PRN #10 tablet 09/12/21 Unknown Rx 5/325 mg] Active Medications: Generic Name Dose Route Start Last Admin Trade Name Freq PRN Reason Stop Dose Admin Acetaminophen 650 mg 09/08/21 18:05 09/12/21 00:01 Acetaminophen 325 Mg Tab PO 650 mg Q6H PRN Administration Pain, Mild (1-3) Acetaminophen 650 mg 09/08/21 18:05 Acetaminophen 650 Mg Rect Supp [place] Q6H PRN Pain MILD(1-3)/Fever >100.5/PALOMINO Apixaban 2.5 mg 09/12/21 22:00 09/14/21 22:19 Apixaban 2.5 Mg Tab PO 2.5 mg Q12HR SHRUTI Administration Protocol Carvedilol 12.5 mg 09/09/21 10:00 09/14/21 22:19 Carvedilol 12.5 Mg Tab PO 12.5 mg Q12HR SHRUTI Administration Clopidogrel Bisulfate 75 mg 09/11/21 10:00 09/14/21 09:51 Clopidogrel 75 Mg Tab PO 75 mg QDAY SHRUTI Administration Dextrose 50 ml 09/09/21 18:00 09/14/21 10:35 Dextrose 50% In Water (25gm) 50 Ml Syringe IV 50 ml Q30MIN PRN Administration Hypoglycemia Protocol Epoetin Darío-epbx 10,000 unit 09/11/21 12:00 09/13/21 14:29 Epoetin Darío-Epbx 10,000 Unit/1 Ml Vial SUB-Q 10,000 unit KEV SHRUTI Administration Furosemide 20 mg 09/13/21 10:00 09/14/21 09:51 Furosemide 20 Mg Tab PO 20 mg QDAY SHRUTI Administration Hydromorphone HCl 0.5 mg 09/09/21 10:30 09/15/21 05:29 Hydromorphone 0.5 Mg/0.5 Ml Inj IV 0.5 mg Q4H PRN Administration Pain , Severe (7-10) Hydroxyzine Pamoate 25 mg 09/14/21 11:02 Hydroxyzine Pamoate 25 Mg Cap PO Q6H PRN Anxiety Sodium Chloride 100 mls @ 999 mls/hr 09/09/21 10:30 Nacl 0.9% IV KEV PRN Hypotension Insulin Human Lispro 0 unit 09/09/21 22:00 09/14/21 22:00 Insulin Lispro 100 Unit/Ml SUB-Q Not Given ACHS [facility] Protocol Isosorbide Mononitrate 30 mg 09/09/21 10:00 09/14/21 09:51 Isosorbide Mononitrate Er 30 Mg Tab PO 30 mg QDAY SHRUTI Administration Nifedipine 30 mg 09/09/21 10:00 09/14/21 09:50 Nifedipine Xl 30 Mg Tab PO 30 mg QDAY SHRUTI Administration Oxycodone/Acetaminophen 1 tab 09/08/21 18:05 09/14/21 22:19 Oxycodone /Acetaminophen 5-325mg Tab PO 1 tab Q6H PRN Administration Pain, Moderate (4-6) Pantoprazole Sodium 20 mg 09/10/21 07:30 09/14/21 09:51 Pantoprazole 20 Mg Tab PO 20 mg QDAC SHRUTI Administration Pentoxifylline 400 mg 09/11/21 10:00 09/14/21 09:52 Pentoxifylline Er 400 Mg Tab PO 400 mg DAILY SHRUTI Administration Sevelamer Carbonate 800 mg 09/12/21 20:00 09/14/21 22:19 Sevelamer Carbonate 800 Mg Tab PO 800 mg TID SHRUTI Administration Sodium Chloride 10 ml 09/08/21 22:00 09/14/21 09:52 Sodium Chloride 0.9% 10 Ml Flush Syringe IV 10 ml BID SHRUTI Administration Sodium Chloride 10 ml 09/08/21 18:05 Sodium Chloride 0.9% 10 Ml Flush Syringe IV PRN PRN LINE FLUSH Venlafaxine HCl 37.5 mg 09/14/21 12:00 09/14/21 13:27 Venlafaxine 37.5 Mg Tab PO 37.5 mg DAILY SHRUTI Administration
--- NOTE | 2021-09-15 08:35 | Discharge Summary ---
Providers - Providers Date of Admission: 09/08/21 18:05 Attending physician: AMADEO TORIBIO MD 09/08/21 18:03 Consult to Physician [CONS] Routine Comment: Consulting Provider: ELLEN LOPEZ Physician Instructions: Reason For Exam: esrd 09/09/21 03:51 Consult to Wound/ET Nurse [CONS] Routine Reason For Exam: L foot, L hand, L thigh and R heel wounds 09/09/21 08:09 Consult to Physician [CONS] Routine Comment: called office/ughes Consulting Provider: NELSON SKY Physician Instructions: Reason For Exam: Sepsis/LE grangrene/IV Abx management 09/09/21 10:10 Consult to Physician [CONS] Routine Comment: Consulting Provider: TASHIA HER Physician Instructions: Reason For Exam: LE grangrene/Necrosis 09/09/21 16:39 Consult to Dietitian/Nutrition [CONS] Routine Physician Instructions: Reason For Exam: Reason for Consult: Diet education 09/10/21 Occupational Therapy Evaluate and Treat [CONS] Routine Comment: Reason For Exam: s/p amputation Physical Therapy Evaluation and Treat [CONS] Routine Comment: Reason For Exam: s/p amputation 09/13/21 08:12 Consult to Mental Health [CONS] Routine Reason For Exam: Acute Psychosis Primary care physician: MANPREET ADAIR Hospitalization Reason for admission: Left lower extremity gangrene Condition: Stable Hospital course: This is a 56-year-old female with known past medical history of Deaf, ESRD on HD(T,R,Sa), HTN, DM, PVD s/p revascularization, chronic limbs ischemia, and medical noncompliance admitted for sepsis most likely due to LLE gangrene/cellulitus Hospital Course to Date: 09/09: LLE grangrene/cellullitis with foul odor noted. Patient also with leukocytosis, remains afebrile. Continue empiric IV abx for now, ID also consulted. Patient is s/p 2units of PRBCs, H&H improved this am. No s/s of any active bleeding, continue to trend H&H. According to patient's sister, patient eventually agreed to the Vascular Surgery recommendation for amputation and is scheduled to have her LLE amputated by Dr. Her. Vascular Surgery consulted. Anasarca and large volume ascites also reported from CTAP, orders placed for US paracentesis. 09/10: Mentation is unchanged. Plan for BKA today by Vascular Surgery. Patient remains afebrile, continue current IV Abx per ID. H&H remains stable. Patient tolerated HD overnight. US paracentesis pending. Per records patient was on Eliquis and Plavix, per family patient is noncompliant with meds. Resume meds if okay with Vascular Surgery. 09/11: S/p Left BKA and US paracentesis, 3.7L removed. Patient appears more awake and calm this am, tolerating PO intake, VSS. Continue PRN analgesia for pain control. Left stump noted with no complications noted. Home plavix resumed per Vascular Surgery. PT/OT ordered. Continue HD per Nephro. Patient is stable for transfer to Telemetry. 09/12: Patient is postop day 2 of left BKA stump is doing well per vascular. Discussed with vascular today we will restart her Eliquis. Patient is clinically stable for discharge but awaiting authorization from insurance company to go to subacute rehab. Discussed with ID patient does not need any antibiotics on discharge as BKA was not surgical care at this time. During this hospitalization the patient underwent paracentesis with 3.7 L removed we will recommend outpatient follow-up with GI and also primary care physician to continue to arrange paracentesis as needed. 09/13: Patient continues to show improvement, no shortness of breath, tolerating diet. she is clinically depressed and worse by knowledge of her limb loss and limitations, will obtain Psych consultation to assist. 09/14: Patient seen and examined venlafaxine resumed, mental health consult pending discussed with Nursing staff to obtain appropriate home med hx. Anticipate discharge in a.m. once placement is arranged. 09/15: Patient seen and examined, no new issues noted. awaiting placement. Serologies ordered for outpatient dialysis. Assessment and Plan #Sepsis #Leukocytosis #Left Lower Extremity iscehmia with Gangrene/Cellutis - Presented with LLE ischemia with gangrene and foul odor and leukocytosis - Patient is afebrile, VSS - Blood cultures with NGTD - ID consulted, appreciate recommendations - Continue current IV Abx by ID - Patient refused LLE amputation last admission - Per patient's sister, patient eventually agreed to the Vascular Surgery recommendation for amputation and is scheduled to have her LLE amputated by Dr. Her - Vascular Surgery consulted, appreciate recommendations - 09/10 s/p Left BKA by Vascular Surgery - Continue to F/U on cultures - Daily CBC monitor - Wound Care consulted #Peripheral Vascular Disease(PVD) #Chronic Limb ischemia #Left Lower Extremity Ischemia with gangrene - Chronic ischemia complicated by gangrene - Vascular Surgery recommended amputation last admission, patient refused at the time - Per patient's sister, patient eventually agreed to the Vascular Surgery recommendation for amputation and is scheduled to have her LLE amputated by Dr. Her. - Vascular Surgery Consulted, appreciate recommendations - 09/10 s/p Left BKA by Vascular Surgery - Wound care consulted - Per records patient was on Eliquis and Plavix, per family patient is noncompliant with meds. - Home plavix resumed by Vascular Surgery #Acute Metabolic Encephalopathy - most likely secondary to infectious process - Mentation improved this am, very [place]DING - CT head/Brain with no acute intracranial abnormalities - Continue IV abx, s/p left BKA - Avoid benzodiazepine to reduce the possibility of delirium - Maintenance of sleep-wake cycle #Hypertension - Updated home list pending - Resume home antihypertensives - Continue blood pressure monitor per protocol - Maintain SBP less than 160 #End-Stage Renal Disease(ESRD) on HD #Volume overload #Hyperkalemia #Noncompliance - Patient missed her previous dialysis session - Nephrology on consult, appreciated recommendation - Continue HD per Nephro - Strict intake and output - Avoid nephrotoxic medications; Renally dose medications - Monitor and replace electrolytes as needed #Large Volume Ascites - Noted from CTAP - 09/10 s/p US paracentesis, 3.7L removed #Acute Pain - due to LLE ischemia/gangrene - s/p left BKA - PRN Analgesia for pain control #Anemia of Chronic Disease - probably due to ESRD - presented with hgb of 6.1, s/p 2units of PRBCs - No s/s of any active bleeding - H&H remains stable - Continue to trend H&H - Epogen per Nephro - Transfuse for hgb less than 7 #Type 2 Diabetes Mellitus - SSI and BH check ACHS - Avoid hypoglycemia - While critically ill target blood glucose of 140-180 #GI/DVT Prophylaxis - PPI- Protonix - SCD to bilateral lower extremities while in bed #Advance Care Planning - Disease education done, care plan, diagnoses, and prognosis discussed with the patient's sister. Patient is a FULL code. Patient's family acknowledged and understanding and agreement with current care plan. Disposition: [facility] Final Discharge Diagnosis (Prints w/discharge instructions): #Sepsis. #Leukocytosis. #Left Lower Extremity iscehmia with Gangrene/Cellutis. #Peripheral Vascular Disease(PVD). #End-stage renal disease. #Chronic Limb ischemia. #Left Lower Extremity Ischemia with gangrene Time spent for discharge: 35 mins Core Measure Documentation - Palliative Care Palliative Care/ Comfort Measures: Not Applicable - Core Measures Any of the following diagnoses?: none Exam - Physical Exam Narrative exam: General: No acute distress. - EENT Eyes: Present: PERRL ENT: other (Very REDDING) - Neck Neck: Present: normal ROM - Respiratory Respiratory effort: normal Respiratory: bilateral: diminished - Cardiovascular Rhythm: regular Heart Sounds: Present: S1 & S2 - Extremities Extremities: abnormal (left second digit and fifth digit necrosis. S/p Left BKA) Extremity abnormal: edema - Peripheral Assessment Generalized Skin Temperature: Warm Peripheral Pulses: within normal limits (RLE, s/p Left BKA) - Abdominal General gastrointestinal: soft, non-distended, normal bowel sounds - Integumentary Integumentary: Present: warm, necrosis of digits as noted above - Psychiatric Psychiatric: emotional mood/affect, cooperative - Neurologic Neurologic: moves all extremities, other (Awake and appropriate, following commands) - Allied Health Allied health notes reviewed: nursing, case management General - Constitutional Vitals: Temp Pulse Resp BP Pulse Ox 98.3 F 76 18 164/70 99 09/15/21 07:42 09/15/21 07:42 09/15/21 00:00 09/15/21 07:42 09/15/21 07:42 Plan Activity: advance as tolerated, fall precautions Diet: low fat Special Instructions: record blood sugar diary Follow up with: MANPREET ADAIR MD [Primary Care Provider] - 3-5 Days TASHIA BETANCOURT MD [Staff Physician] - 7 Days NELSON SKY MD [Staff Physician] - 7 Days BUCKY BRAR MD [Staff Physician] - 7 Days Prescriptions: Venlafaxine [Effexor 37.5mg tab] 37.5 mg PO DAILY #30 tablet oxyCODONE /ACETAMINOPHEN [Percocet 5/325 mg] 1 tab PO Q6H PRN #10 tablet PRN Reason: Pain, Moderate (4-6) Clopidogrel [Plavix] 75 mg PO QDAY #90 tablet NIFEdipine XL [Procardia Xl] 30 mg PO Q12HR #60 tablet Pentoxifylline [TRENtal] 400 mg PO DAILY #90 tablet ALPRAZolam [Xanax TAB] 0.25 mg PO Q8H PRN #12 tablet PRN Reason: Anxiety
[2021-09-15] MEDS: PANTOPRAZOLE 20 MG TAB PO SCH (09:12)
[2021-09-15] MEDS: FUROSEMIDE 20 MG TAB PO SCH (09:13)
[2021-09-15] MEDS: carvediloL 12.5 MG TAB PO SCH (09:13)
[2021-09-15] MEDS: SEVELAMER CARBONATE 800 MG TAB PO SCH ×2 (09:13→13:36)
[2021-09-15] MEDS: CLOPIDOGREL 75 MG TAB PO SCH (09:13)
[2021-09-15] MEDS: APIXABAN 2.5 MG TAB PO SCH (09:13)
[2021-09-15] MEDS: NIFEdipine XL 30 MG TAB PO SCH (09:13)
[2021-09-15] MEDS: VENLAFAXINE 37.5 MG TAB PO SCH (09:14)
[2021-09-15] MEDS: PENTOXIFYLLINE ER 400 MG TAB PO SCH (09:14)
[2021-09-15 11:59] VITALS: BP 157/72
[2021-09-15 13:11] LABS: Hepatitis B Surface Antigen Non-Reactive (Negative); Hepatitis C Virus Antibody Non-Reactive (NonReactive)
[2021-09-15] MEDS: oxyCODONE /ACETAMINOPHEN 5-325MG TAB PO PRN (13:36)
== END 2021-09-15 17:00 | DRG 853 ==
LOC: ED 14:20 → IMCU 18:05 → 4A 09-12 00:38
PROVIDERS: ADMIT Internal Medicine; ATTEND Internal Medicine
PROC: 30233N1 Transfusion of Nonautologous Red Blood Cells into Peripheral Vein, Percutaneous Approach (ICD-10-PCS; 2021-09-08)
PROC: 5A1D70Z Performance of Urinary Filtration, Intermittent, Less than 6 Hours Per Day (ICD-10-PCS; 2021-09-09)
PROC: 0Y6J0Z3 Detachment at Left Lower Leg, Low, Open Approach (ICD-10-PCS; principal; 2021-09-10)
PROC: 5A1D70Z Performance of Urinary Filtration, Intermittent, Less than 6 Hours Per Day (ICD-10-PCS; 2021-09-10)
PROC: 0W9G3ZZ Drainage of Peritoneal Cavity, Percutaneous Approach (ICD-10-PCS; 2021-09-10)
PROC: 5A1D70Z Performance of Urinary Filtration, Intermittent, Less than 6 Hours Per Day (ICD-10-PCS; 2021-09-11)
PROC: 5A1D70Z Performance of Urinary Filtration, Intermittent, Less than 6 Hours Per Day (ICD-10-PCS; 2021-09-13)
DX: A41.9 Sepsis, unspecified organism (principal); N18.6 End stage renal disease; G92.9 Unspecified toxic encephalopathy; L03.116 Cellulitis of left lower limb; R18.8 Other ascites; I13.2 Hypertensive heart and chronic kidney disease with heart failure and with stage 5 chronic kidney disease, or end stage renal disease; E11.52 Type 2 diabetes mellitus with diabetic peripheral angiopathy with gangrene; I96 Gangrene, not elsewhere classified; E87.5 Hyperkalemia; Z20.822 Contact with and (suspected) exposure to COVID-19; E11.22 Type 2 diabetes mellitus with diabetic chronic kidney disease; Z99.2 Dependence on renal dialysis; I50.9 Heart failure, unspecified; H91.3 Deaf nonspeaking, not elsewhere classified; Z91.15 Patient's noncompliance with renal dialysis; Z82.49 Family history of ischemic heart disease and other diseases of the circulatory system; D63.1 Anemia in chronic kidney disease
CPT/HCPCS: 36415; 49083; 70450; 71045; 74176; 80048; 80053; 80074; 80076; 80202; 82140; 82550; 82962; 85007; 85014; 85018; 85025; 85027; 85610; 85730; 86705; 86706; 86850; 86900; 86901; 86920; 87040; 87641; 88307; 88311; 93005; G0378; J3490; J7070; J0690; J0885; J1170; J1956; J2060; J2270; J2405; J2543; J2704; J3370; J7030; J7040; P9016; U0003

== ENCOUNTER 2021-09-24 11:08 | Emergency (ER) | payer MEDICARE ==
--- NOTE | 2021-09-24 12:22 | Emergency Department Report ---
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 with anemia. prison did not provide a hemoglobin or hematocrit level. Patient denies any significant complaints. She was recently discharged here on September 15 after being admitted for left lower extremity gangrene/cellulitis (status post left BKA), anemia (status post 2 units PRBCs), ascites (3.7L fluid removed). Patient also has chronic ischemia to her left hand. Patient is deaf. I Communicated via writing. On September 15 hemoglobin 7.2 just prior to discharge As per medical record review patient has been evaluated by Dr. Rod [facility] however, at the discussion with Dr. Sanchez it appears that patient is unassigned and sees an unaffiliated [facility] as an outpatient - Related Data Previous Rx's Medication Instructions Recorded Last Taken Type Acetaminophen [Acetaminophen TAB] 650 mg PO Q4H PRN tablet 04/01/21 07/06/21 Rx Apixaban [Eliquis] 2.5 mg PO BID #180 07/07/21 09/08/21 09:00 Rx Furosemide [Lasix TAB] 20 mg PO QDAY #30 tablet 08/15/21 09/08/21 09:00 Rx ISOSORBIDE MONOnitrate [Imdur ER] 30 mg PO QDAY #30 tablet 08/15/21 09/08/21 09:00 Rx Pantoprazole [Protonix TAB] 20 mg PO QDAC tablet. 08/15/21 09/08/21 09:00 Rx Valsartan [Diovan] 80 mg PO QDAY 30 Days #30 tab 08/15/21 09/08/21 09:00 Rx carvediloL [Coreg] 25 mg PO Q12HR #60 tablet 08/15/21 09/09/21 09:00 Rx sevelamer HCL [Sevelamer HCl] 800 mg PO TID 30 Days #90 tab 08/15/21 09/08/21 09:00 Rx oxyCODONE /ACETAMINOPHEN [Percocet 1 tab PO Q4H PRN 5 Days #30 tablet 08/29/21 09/08/21 09:00 Rx 5/325 mg] NIFEdipine XL [Procardia Xl] 30 mg PO Q12HR #60 tablet 09/11/21 Unknown Rx ALPRAZolam [Xanax TAB] 0.25 mg PO Q8H PRN #12 tablet 09/12/21 Unknown Rx Clopidogrel [Plavix] 75 mg PO QDAY #90 tablet 09/12/21 Unknown Rx Lispro Insulin [HumaLOG] 0 unit SUB-Q ACHS units 09/12/21 Unknown Rx Pentoxifylline [TRENtal] 400 mg PO DAILY #90 tablet 09/12/21 Unknown Rx oxyCODONE /ACETAMINOPHEN [Percocet 1 tab PO Q6H PRN #10 tablet 09/12/21 Unknown Rx 5/325 mg] Venlafaxine [Effexor 37.5mg tab] 37.5 mg PO DAILY #30 tablet 09/15/21 Unknown Rx Allergies Allergy/AdvReac Type Severity Reaction Status Date / Time No Known Allergies Allergy Verified 09/08/21 14:34 ED Review of Systems ROS: Stated complaint: LOW HEMOGLOBIN Other details as noted in HPI Comment: All other systems reviewed and negative ED Past Medical Hx - Past Medical History Hx Hypertension: Yes Hx Heart Attack/AMI: No (EF 25-30%) Hx Congestive Heart Failure: Yes Hx Diabetes: Yes Hx Deep Vein Thrombosis: No Hx Liver Disease: No Hx Renal Disease: Yes (dialysis //Wed) Hx Kidney Stones: No Hx Asthma: No Hx COPD: No Additional medical history: Deaf, " heart disease" per family, bilateral foot ulcers - Surgical History Hx Coronary Stent: No Hx Pacemaker: No Hx Internal Defibrillator: No Additional Surgical History: right chest permacath - Social History Smoking Status: Unknown if ever smoked - Medications Home Medications: Home Medications Medication Instructions Recorded Confirmed Last Taken Type Acetaminophen [Acetaminophen TAB] 650 mg PO Q4H PRN tablet 04/01/21 09/09/21 07/06/21 Rx Apixaban [Eliquis] 2.5 mg PO BID #180 07/07/21 09/09/21 09/08/21 09:00 Rx Furosemide [Lasix TAB] 20 mg PO QDAY #30 tablet 08/15/21 09/09/21 09/08/21 09:00 Rx ISOSORBIDE MONOnitrate [Imdur ER] 30 mg PO QDAY #30 tablet 08/15/21 09/09/21 09/08/21 09:00 Rx Pantoprazole [Protonix TAB] 20 mg PO QDAC tablet. 08/15/21 09/09/21 09/08/21 09:00 Rx Valsartan [Diovan] 80 mg PO QDAY 30 Days #30 tab 08/15/21 09/09/21 09/08/21 09:00 Rx carvediloL [Coreg] 25 mg PO Q12HR #60 tablet 08/15/21 09/09/21 09/09/21 09:00 Rx sevelamer HCL [Sevelamer HCl] 800 mg PO TID 30 Days #90 tab 08/15/21 09/09/21 09/08/21 09:00 Rx oxyCODONE /ACETAMINOPHEN [Percocet 1 tab PO Q4H PRN 5 Days #30 tablet 08/29/21 09/09/21 09/08/21 09:00 Rx 5/325 mg] NIFEdipine XL [Procardia Xl] 30 mg PO Q12HR #60 tablet 09/11/21 Unknown Rx ALPRAZolam [Xanax TAB] 0.25 mg PO Q8H PRN #12 tablet 09/12/21 Unknown Rx Clopidogrel [Plavix] 75 mg PO QDAY #90 tablet 09/12/21 Unknown Rx Lispro Insulin [HumaLOG] 0 unit SUB-Q ACHS units 09/12/21 Unknown Rx Pentoxifylline [TRENtal] 400 mg PO DAILY #90 tablet 09/12/21 Unknown Rx oxyCODONE /ACETAMINOPHEN [Percocet 1 tab PO Q6H PRN #10 tablet 09/12/21 Unknown Rx 5/325 mg] Venlafaxine [Effexor 37.5mg tab] 37.5 mg PO DAILY #30 tablet 09/15/21 Unknown Rx ED Physical Exam - General Limitations: No Limitations - Other Other exam information: General: No acute distress Head: Atraumatic Eyes: normal appearance ENT: Moist mucous membranes Neck: Normal appearance, no midline tenderness Chest: Clear to auscultation bilaterally CV: Regular rate and rhythm Abdomen: Soft, normal bowel sounds, nontender, nondistended, no rebound or guarding Rectal: Guaiac negative brown stool Back: Normal inspection Extremity: Left BKA with stump in place. No clinical signs of infection (no warmth, redness, erythema, or drainage). Left hand with dry gangrene to index and pinky finger (exposed bone) appears chronic Neuro: Alert O x 3, no facial asymmetry, speech clear, no gross motor sensory deficit Psych: Appropriate behavior Skin: No rash ED Course Vital Signs 09/24/21 09/24/21 09/24/21 11:12 11:38 11:45 Temperature Pulse Rate 90 80 80 Respiratory 18 15 19 Rate Blood Pressure 154/77 Blood Pressure 118/76 [Right] O2 Sat by Pulse 97 100 100 Oximetry 09/24/21 09/24/21 09/24/21 12:01 12:15 12:31 Temperature Pulse Rate 79 79 79 Respiratory 15 19 25 H Rate Blood Pressure 155/71 164/87 158/79 Blood Pressure [Right] O2 Sat by Pulse 100 98 100 Oximetry 09/24/21 09/24/21 09/24/21 12:44 12:45 13:01 Temperature 98.5 F Pulse Rate 77 81 Respiratory 21 16 Rate Blood Pressure 158/79 158/79 Blood Pressure [Right] O2 Sat by Pulse 100 100 Oximetry - Consultations Consultation #1: 09/24/21 14:[address] Sanchez [facility]. Agrees patient does not need blood transfusion or dialysis at this time. ED Medical Decision Making - Lab Data Result diagrams: 09/24/21 12:18 09/24/21 12:18 Lab Results 09/24/21 09/24/21 09/24/21 Range/Units 12:18 12:18 12:18 WBC 8.6 (4.5-11.0) K/mm3 RBC 2.98 L (3.65-5.03) M/mm3 Hgb 7.6 L (10.1-14.3) gm/dl Hct 24.5 L (30.3-42.9) % MCV 82 (79-97) fl MCH 26 L (28-32) pg MCHC 31 (30-34) % RDW 22.9 H (13.2-15.2) % Plt Count 398 (140-440) K/mm3 Lymph % (Auto) 10.6 L (13.4-35.0) % Barton % (Auto) 5.3 (0.0-7.3) % Eos % (Auto) 1.1 (0.0-4.3) % Baso % (Auto) 1.2 (0.0-1.8) % Lymph # (Auto) 0.9 L (1.2-5.4) K/mm3 Barton # (Auto) 0.5 (0.0-0.8) K/mm3 Eos # (Auto) 0.1 (0.0-0.4) K/mm3 Baso # (Auto) 0.1 (0.0-0.1) K/mm3 Seg Neutrophils % 81.8 H (40.0-70.0) % Seg Neutrophils # 7.0 (1.8-7.7) K/mm3 PT 16.2 H (12.2-14.9) Sec. INR 1.16 H (0.87-1.13) APTT 39.6 H (24.2-36.6) Sec. Sodium 135 L (137-145) mmol/L Potassium 4.7 (3.6-5.0) mmol/L Chloride 95.4 L (98-107) mmol/L Carbon Dioxide 26 (22-30) mmol/L Anion Gap 18 mmol/L BUN 41 H (7-17) mg/dL Creatinine 5.9 H (0.6-1.2) mg/dL Estimated GFR 9 ml/min BUN/Creatinine Ratio 7 % Glucose 95 (65-100) mg/dL Calcium 9.1 (8.4-10.2) mg/dL Total Bilirubin 0.60 (0.1-1.2) mg/dL AST 11 (5-40) units/L ALT < 5 L (7-56) units/L Alkaline Phosphatase 144 H (35-129) units/L Total Protein 7.0 (6.3-8.2) g/dL Albumin 3.3 L (3.9-5) g/dL Albumin/Globulin Ratio 0.9 % Blood Type 09/24/21 Range/Units 12:26 WBC (4.5-11.0) K/mm3 RBC (3.65-5.03) M/mm3 Hgb (10.1-14.3) gm/dl Hct (30.3-42.9) % MCV (79-97) fl MCH (28-32) pg MCHC (30-34) % RDW (13.2-15.2) % Plt Count (140-440) K/mm3 Lymph % (Auto) (13.4-35.0) % Barton % (Auto) (0.0-7.3) % Eos % (Auto) (0.0-4.3) % Baso % (Auto) (0.0-1.8) % Lymph # (Auto) (1.2-5.4) K/mm3 Barton # (Auto) (0.0-0.8) K/mm3 Eos # (Auto) (0.0-0.4) K/mm3 Baso # (Auto) (0.0-0.1) K/mm3 Seg Neutrophils % (40.0-70.0) % Seg Neutrophils # (1.8-7.7) K/mm3 PT (12.2-14.9) Sec. INR (0.87-1.13) APTT (24.2-36.6) Sec. Sodium (137-145) mmol/L Potassium (3.6-5.0) mmol/L Chloride (98-107) mmol/L Carbon Dioxide (22-30) mmol/L Anion Gap mmol/L BUN (7-17) mg/dL Creatinine (0.6-1.2) mg/dL Estimated GFR ml/min BUN/Creatinine Ratio % Glucose (65-100) mg/dL Calcium (8.4-10.2) mg/dL Total Bilirubin (0.1-1.2) mg/dL AST (5-40) units/L ALT (7-56) units/L Alkaline Phosphatase (35-129) units/L Total Protein (6.3-8.2) g/dL Albumin (3.9-5) g/dL Albumin/Globulin Ratio % Blood Type A POSITIVE - Medical Decision Making 56-year female presents to the hospital with anemia from long term. Patient did not arrive with recent medications or lab orders. Patient has normal vital signs, guaiac negative stool, and a hemoglobin of 7.6 which is improved from d ischarge on October 15. At this time I have no indication to admit patient or perform blood transfusion. I discussed this with [facility] Dr. Sanchez who is affiliated with Dr. rod and is familiar with the patient. However does clarify that patient is unassigned given that her outpatient [facility] specialist not affiliated here. He was willing to consult and agrees that patient does not require blood transfusion or emergent dialysis at this time. Patient will be discharged back to long term Critical Care Time: No Critical care attestation.: If time is entered above; I have spent that time in minutes in the direct care of this critically ill patient, excluding procedure time. ED Disposition Clinical Impression: Chronic anemia, ESRD on dialysis Disposition: HOME / SELF CARE / HOMELESS Is pt being admited?: No Does the pt Need Aspirin: No Condition: Stable Additional Instructions: You were sent to the ER for anemia. Your Hemoglobin is currently 7.6 which is improved to 7.2 on September 15. At this time we do not require blood transfusion. It is important for your doctors to continue to monitor your hemoglobin level. If your hemoglobin drops below 7 you will need a blood transfusion. Please follow-up with your dialysis tomorrow as scheduled Referrals: pmd, your [Other] - 2-3 Days Time of Disposition: 14:02
[2021-09-24 12:45] LABS: Basophils # (Auto) 0.1 K/mm3 (0.0-0.1); Basophils % (Auto) 1.2 % (0.0-1.8); Eosinophils # (Auto) 0.1 K/mm3 (0.0-0.4); Eosinophils % (Auto) 1.1 % (0.0-4.3); Hematocrit 24.5 % (30.3-42.9); Hemoglobin 7.6 gm/dl (10.1-14.3); Lymphocytes # (Auto) 0.9 K/mm3 (1.2-5.4); Lymphocytes % (Auto) 10.6 % (13.4-35.0); Mean Corpuscular HGB Conc 31 % (30-34); Mean Corpuscular Volume 82 fl (79-97); Monocytes # (Auto) 0.5 K/mm3 (0.0-0.8); Monocytes % (Auto) 5.3 % (0.0-7.3); Platelet Count 398 K/mm3 (140-440); Red Blood Count 2.98 M/mm3 (3.65-5.03)
[2021-09-24 12:54] LABS: INR 1.16 (0.87-1.13)
[2021-09-24 12:55] LABS: Partial Thromboplastin Time 39.6 Sec. (24.2-36.6); Red Cell Distribution Width 22.9 % (13.2-15.2)
[2021-09-24 13:03] LABS: Albumin 3.3 g/dL (3.9-5); Blood Urea Nitrogen 41 mg/dL (7-17); Calcium 9.1 mg/dL (8.4-10.2); Hemolysis Index 1
[2021-09-24 13:39] LABS: Alanine Aminotransferase < 5 units/L (7-56); BUN/Creatinine Ratio 7
[2021-09-24 15:47] VITALS: BP 166/75
== END 2021-09-24 16:58 | disposition home or self-care (01) ==
LOC: ED 11:08
DX: D64.9 Anemia, unspecified (principal); I13.2 Hypertensive heart and chronic kidney disease with heart failure and with stage 5 chronic kidney disease, or end stage renal disease; E11.22 Type 2 diabetes mellitus with diabetic chronic kidney disease; N18.6 End stage renal disease; I50.9 Heart failure, unspecified; Z99.2 Dependence on renal dialysis; Z79.01 Long term (current) use of anticoagulants; Z79.899 Other long term (current) drug therapy
CPT/HCPCS: 36415; 80053; 82271; 85025; 85610; 85730; 86850; 86900; 86901; 99283

== ENCOUNTER 2021-12-08 09:36 | Outpatient (CLI) | payer MEDICARE ==
[2021-12-08] MEDS ORDERED: SILVER NITRATE APPLICATOR 1 EA TP ONE (10:44)
[2021-12-08] MEDS ORDERED: LIDOCAINE (4%) 40 MG/ML TOPICAL SOLN 50 ML BOTTLE TP ONE (10:46)
== END 2021-12-08 09:37 | disposition home or self-care (01) ==
LOC: WOUND 09:36
PROVIDERS: ATTEND Surgery
DX: T87.89 Other complications of amputation stump (principal); I70.263 Atherosclerosis of native arteries of extremities with gangrene, bilateral legs; L89.620 Pressure ulcer of left heel, unstageable; L97.421 Non-pressure chronic ulcer of left heel and midfoot limited to breakdown of skin; L89.610 Pressure ulcer of right heel, unstageable; L97.412 Non-pressure chronic ulcer of right heel and midfoot with fat layer exposed; L89.890 Pressure ulcer of other site, unstageable; L89.152 Pressure ulcer of sacral region, stage 2; L84 Corns and callosities; E11.22 Type 2 diabetes mellitus with diabetic chronic kidney disease; N18.6 End stage renal disease; Z99.2 Dependence on renal dialysis; Z87.891 Personal history of nicotine dependence; Z79.899 Other long term (current) drug therapy; Y83.5 Amputation of limb(s) as the cause of abnormal reaction of the patient, or of later complication, without mention of misadventure at the time of the procedure; Y92.238 Other place in hospital as the place of occurrence of the external cause

== ENCOUNTER 2021-12-19 15:59 | Inpatient (IN) | payer MEDICAID, MEDICARE ==
--- NOTE | 2021-12-19 16:48 | XRay Report ---
CHEST 1 VIEW INDICATION / CLINICAL INFORMATION: ams, bradycardy, esrd STUDY TIME: 1626 COMPARISON: 09/08/2021 FINDINGS: SUPPORT DEVICES: Large bore multilumen catheter appears unchanged HEART / MEDIASTINUM: Stable. LUNGS / PLEURA: No significant acute pulmonary or pleural abnormality. No pneumothorax. ADDITIONAL FINDINGS: Moderate gaseous distention of the stomach Signer Name: Yuniel Child MD Signed: 12/19/2021 4:44 PM Workstation Name: [id number]
[2021-12-19 17:35] LABS: Hemoglobin 10.5 gm/dl (10.1-14.3); Mean Corpuscular HGB Conc 32 % (30-34); Mean Corpuscular Volume 82 fl (79-97); Platelet Count 219 K/mm3 (140-440); Red Blood Count 4.03 M/mm3 (3.65-5.03); Red Cell Distribution Width 18.6 % (13.2-15.2)
[2021-12-19 17:48] LABS: Albumin 2.7 g/dL (3.9-5); Calcium 9.2 mg/dL (8.4-10.2)
[2021-12-19] MEDS ORDERED: CEFEPIME/NS 2 GM/100 ML 2 GM/100 ML BAG IV ONE (17:55)
[2021-12-19 17:57] LABS: ABG Base Excess -6.9 mmol/L (-2.0-3.0); ABG HCO3 17.1 mmol/L (20.0-26.0); ABG Methemoglobin 0.5 % (0.0-1.5); ABG Oxygen Saturation 98.7 % (95.0-99.0); ABG PCO2 29.3 mm Hg; ABG PH 7.384 pH Units (7.350-7.450); ABG PO2 136.3 mm Hg (80.0-90.0)
[2021-12-19 18:01] LABS: Free T4 (Free Thyroxine) 0.47 ng/dL (0.76-1.46)
[2021-12-19] MEDS ORDERED: CALCIUM GLUCONATE 1,000 MG in SODIUM CHLORIDE 0.9% 100 ML IV ONE (18:22)
[2021-12-19] MEDS ORDERED: SODIUM BICARB 8.4% 50 MEQ/50 ML SYRINGE IV ONE (18:22)
[2021-12-19] MEDS ORDERED: DEXTROSE 50% IN WATER (25GM) 50 ML SYRINGE IV ONE (18:22)
[2021-12-19] MEDS ORDERED: INSULIN REGULAR, HUMAN 100 UNITS/1 ML IV ONE (18:22)
[2021-12-19] MEDS ORDERED: ALBUTEROL 2.5 MG/3 ML NEBU IH ONE (18:24)
[2021-12-19 18:49] VITALS: BP 99/31
[2021-12-19] MEDS ORDERED: VANCOMYCIN 1,250 MG in SODIUM CHLORIDE 0.9% 500 ML 500 ML IV ONE (19:02)
--- NOTE | 2021-12-19 19:05 | Emergency Department Report ---
ED Altered Mental Status HPI - General Chief Complaint: Altered Mental Status Stated Complaint: AMS Time Seen by Provider: 12/19/21 16:19 Source: EMS, old records reviewed Mode of arrival: Stretcher Limitations: Altered Mental Status, Physical Limitation - History of Present Illness Initial Comments: 56-year-old female with known past medical history of Deaf, ESRD on HD(Wednesday, Wednesday, Wednesday), HTN, DM, PVD s/p revascularization, chronic limbs ischemia, noncompliance, and recent left BKA on September 11 (admitted here for sepsis) presents to the hospital from rehab facility with altered mental status, bradycardia, hypotension. Accu-Chek reported to be in the 130s. Patient is unable to provide any history of present illness due to alteration in mental status. Patient received 1 L normal saline initiated by EMS with improvement in blood pressure. After daughter arrived to the ED she was able to provide history that patient refused her dialysis on Wednesday and therefore is now 2 days behind schedule Family desires pt to be full code - Related Data Previous Rx's Medication Instructions Recorded Last Taken Type Acetaminophen [Acetaminophen TAB] 650 mg PO Q4H PRN tablet 04/01/21 07/06/21 Rx Apixaban [Eliquis] 2.5 mg PO BID #180 07/07/21 09/08/21 09:00 Rx Furosemide [Lasix TAB] 20 mg PO QDAY #30 tablet 08/15/21 09/08/21 09:00 Rx ISOSORBIDE MONOnitrate [Imdur ER] 30 mg PO QDAY #30 tablet 08/15/21 09/08/21 09:00 Rx Pantoprazole [Protonix TAB] 20 mg PO QDAC tablet. 08/15/21 09/08/21 09:00 Rx Valsartan [Diovan] 80 mg PO QDAY 30 Days #30 tab 08/15/21 09/08/21 09:00 Rx carvediloL [Coreg] 25 mg PO Q12HR #60 tablet 08/15/21 09/09/21 09:00 Rx sevelamer HCL [Sevelamer HCl] 800 mg PO TID 30 Days #90 tab 08/15/21 09/08/21 09:00 Rx oxyCODONE /ACETAMINOPHEN [Percocet 1 tab PO Q4H PRN 5 Days #30 tablet 08/29/21 09/08/21 09:00 Rx 5/325 mg] NIFEdipine XL [Procardia Xl] 30 mg PO Q12HR #60 tablet 09/11/21 Unknown Rx ALPRAZolam [Xanax TAB] 0.25 mg PO Q8H PRN #12 tablet 09/12/21 Unknown Rx Clopidogrel [Plavix] 75 mg PO QDAY #90 tablet 09/12/21 Unknown Rx Lispro Insulin [HumaLOG] 0 unit SUB-Q ACHS units 09/12/21 Unknown Rx Pentoxifylline [TRENtal] 400 mg PO DAILY #90 tablet 09/12/21 Unknown Rx oxyCODONE /ACETAMINOPHEN [Percocet 1 tab PO Q6H PRN #10 tablet 09/12/21 Unknown Rx 5/325 mg] Venlafaxine [Effexor 37.5mg tab] 37.5 mg PO DAILY #30 tablet 09/15/21 Unknown Rx Allergies Allergy/AdvReac Type Severity Reaction Status Date / Time No Known Allergies Allergy Verified 12/19/21 16:14 ED Review of Systems ROS: Stated complaint: AMS Other details as noted in HPI Comment: Unobtainable due to pts medical conditions ED Past Medical Hx - Past Medical History Previous Medical History?: Yes Hx Hypertension: Yes Hx Heart Attack/AMI: No (EF 25-30%) Hx Congestive Heart Failure: Yes Hx Diabetes: Yes Hx Deep Vein Thrombosis: No Hx Liver Disease: No Hx Renal Disease: Yes (dialysis //Wed) Hx Kidney Stones: No Hx Asthma: No Hx COPD: No Additional medical history: Deaf, " heart disease" per family, bilateral foot ulcers - Surgical History Hx Coronary Stent: No Hx Pacemaker: No Hx Internal Defibrillator: No Additional Surgical History: right chest permacath - Social History Smoking Status: Unknown if ever smoked - Medications Home Medications: Home Medications Medication Instructions Recorded Confirmed Last Taken Type Acetaminophen [Acetaminophen TAB] 650 mg PO Q4H PRN tablet 04/01/21 09/09/21 07/06/21 Rx Apixaban [Eliquis] 2.5 mg PO BID #180 07/07/21 09/09/21 09/08/21 09:00 Rx Furosemide [Lasix TAB] 20 mg PO QDAY #30 tablet 08/15/21 09/09/21 09/08/21 09:00 Rx ISOSORBIDE MONOnitrate [Imdur ER] 30 mg PO QDAY #30 tablet 08/15/21 09/09/21 09/08/21 09:00 Rx Pantoprazole [Protonix TAB] 20 mg PO QDAC tablet. 08/15/21 09/09/21 09/08/21 09:00 Rx Valsartan [Diovan] 80 mg PO QDAY 30 Days #30 tab 08/15/21 09/09/21 09/08/21 09:00 Rx carvediloL [Coreg] 25 mg PO Q12HR #60 tablet 08/15/21 09/09/21 09/09/21 09:00 Rx sevelamer HCL [Sevelamer HCl] 800 mg PO TID 30 Days #90 tab 08/15/21 09/09/21 09/08/21 09:00 Rx oxyCODONE /ACETAMINOPHEN [Percocet 1 tab PO Q4H PRN 5 Days #30 tablet 08/29/21 09/09/21 09/08/21 09:00 Rx 5/325 mg] NIFEdipine XL [Procardia Xl] 30 mg PO Q12HR #60 tablet 09/11/21 Unknown Rx ALPRAZolam [Xanax TAB] 0.25 mg PO Q8H PRN #12 tablet 09/12/21 Unknown Rx Clopidogrel [Plavix] 75 mg PO QDAY #90 tablet 09/12/21 Unknown Rx Lispro Insulin [HumaLOG] 0 unit SUB-Q ACHS units 09/12/21 Unknown Rx Pentoxifylline [TRENtal] 400 mg PO DAILY #90 tablet 09/12/21 Unknown Rx oxyCODONE /ACETAMINOPHEN [Percocet 1 tab PO Q6H PRN #10 tablet 09/12/21 Unknown Rx 5/325 mg] Venlafaxine [Effexor 37.5mg tab] 37.5 mg PO DAILY #30 tablet 09/15/21 Unknown Rx ED Physical Exam - General Limitations: Altered Mental Status, Physical Limitation - Other Other exam information: General: Altered Head: Atraumatic Eyes: normal appearance Neck: Normal appearance, no midline tenderness Chest: Tachypnea, no wheezing CV: Bradycardic regular rhythm Abdomen: Soft, no grimace to palpation. Positive pain Extremity: Dry gangrene to the left index and pinky finger which is chronic. Left BKA Neuro: Lethargic, withdraws to pain, not speaking. ED Course Vital Signs 12/19/21 12/19/21 12/19/21 16:08 16:16 16:30 Temperature Pulse Rate 41 L 42 L 43 L Pulse Rate [ Bilateral] Respiratory 16 16 26 H Rate Respiratory Rate [Bilateral ] Blood Pressure 99/32 Blood Pressure 81/41 [Left] O2 Sat by Pulse 93 100 Oximetry 12/19/21 12/19/21 12/19/21 16:46 17:00 17:16 Temperature Pulse Rate 43 L 43 L 44 L Pulse Rate [ Bilateral] Respiratory 23 13 14 Rate Respiratory Rate [Bilateral ] Blood Pressure 103/38 105/38 96/38 Blood Pressure [Left] O2 Sat by Pulse 100 100 100 Oximetry 12/19/21 12/19/21 12/19/21 17:30 17:46 17:50 Temperature Pulse Rate 44 L 42 L Pulse Rate [ Bilateral] Respiratory 17 18 Rate Respiratory Rate [Bilateral ] Blood Pressure 105/35 99/34 Blood Pressure [Left] O2 Sat by Pulse 100 99 Oximetry 12/19/21 12/19/21 12/19/21 18:00 18:13 18:16 Temperature 100.2 F H Pulse Rate 43 L 43 L Pulse Rate [ Bilateral] Respiratory 21 19 Rate Respiratory Rate [Bilateral ] Blood Pressure 101/32 103/33 Blood Pressure [Left] O2 Sat by Pulse 100 100 Oximetry 12/19/21 12/19/21 12/19/21 18:30 18:38 18:46 Temperature Pulse Rate 44 L 46 L Pulse Rate [ 46 L Bilateral] Respiratory 18 27 H Rate Respiratory 20 Rate [Bilateral ] Blood Pressure 99/31 99/31 Blood Pressure [Left] O2 Sat by Pulse 100 100 Oximetry 12/19/21 20:16 Temperature Pulse Rate Pulse Rate [ Bilateral] Respiratory Rate Respiratory Rate [Bilateral ] Blood Pressure Blood Pressure [Left] O2 Sat by Pulse 100 Oximetry - Consultations Consultation #1: 12/19/21 19:15 case d/w DR Sanchez who will make arrangements for emergent dialysis 12/19/21 19:56 case d/w Dr causey critical care - Lab Data Result diagrams: 12/19/21 16:57 12/19/21 16:57 Lab Results 12/19/21 12/19/21 12/19/21 Range/Units 16:57 16:57 16:57 WBC 20.9 H (4.5-11.0) K/mm3 RBC 4.03 (3.65-5.03) M/mm3 Hgb 10.5 (10.1-14.3) gm/dl Hct 33.0 (30.3-42.9) % MCV 82 (79-97) fl MCH 26 L (28-32) pg MCHC 32 (30-34) % RDW 18.6 H (13.2-15.2) % Plt Count 219 (140-440) K/mm3 Add Manual Diff Complete Total Counted 100 Seg Neuts % (Manual) 92.0 H (40.0-70.0) % Band Neutrophils % 6.0 % Lymphocytes % (Manual) 0 L (13.4-35.0) % Reactive Lymphs % (Man) 0 % Monocytes % (Manual) 1.0 (0.0-7.3) % Eosinophils % (Manual) 0 (0.0-4.3) % Basophils % (Manual) 0 (0.0-1.8) % Metamyelocytes % 1.0 % Myelocytes % 0 % Promyelocytes % 0 % Blast Cells % 0 % Nucleated RBC % 2.0 H (0.0-0.9) % Seg Neutrophils # Man 19.2 H (1.8-7.7) K/mm3 Band Neutrophils # 1.3 K/mm3 Lymphocytes # (Manual) 0.0 L (1.2-5.4) K/mm3 Abs React Lymphs (Man) 0.0 K/mm3 Monocytes # (Manual) 0.2 (0.0-0.8) K/mm3 Eosinophils # (Manual) 0.0 (0.0-0.4) K/mm3 Basophils # (Manual) 0.0 (0.0-0.1) K/mm3 Metamyelocytes # 0.2 K/mm3 Myelocytes # 0.0 K/mm3 Promyelocytes # 0.0 K/mm3 Blast Cells # 0.0 K/mm3 WBC Morphology Not Reportable Hypersegmented Neuts Not Reportable Hyposegmented Neuts Not Reportable Hypogranular Neuts Not Reportable Smudge Cells Not Reportable Toxic Granulation Not Reportable Toxic Vacuolation Not Reportable Dohle Bodies Not Reportable Pelger-Huet Anomaly Not Reportable Cosme Rods Not Reportable Platelet Estimate Consistent w auto Clumped Platelets Not Reportable Plt Clumps, EDTA Not Reportable Large Platelets Not Reportable Giant Platelets Not Reportable Platelet Satelliting Not Reportable Plt Morphology Comment Not Reportable RBC Morphology Not Reportable Dimorphic RBCs Not Reportable Polychromasia Not Reportable Hypochromasia Few Poikilocytosis Not Reportable Anisocytosis Not Reportable Microcytosis Not Reportable Macrocytosis Not Reportable Spherocytes Not Reportable Pappenheimer Bodies Not Reportable Sickle Cells Not Reportable Target Cells Not Reportable Tear Drop Cells Not Reportable Ovalocytes Not Reportable Helmet Cells Not Reportable [place] Bodies Not Reportable [place] Rings Not Reportable [place] Cells Not Reportable Bite Cells Not Reportable Crenated Cell Not Reportable Elliptocytes Not Reportable Acanthocytes (Spur) Not Reportable Rouleaux Not Reportable Hemoglobin C Crystals Not Reportable Schistocytes Not Reportable Malaria parasites Not Reportable Jozef Bodies Not Reportable Hem Pathologist Commnt No ABG pH (7.350-7.450) pH Units ABG pCO2 mm Hg ABG pO2 (80.0-90.0) mm Hg ABG HCO3 (20.0-26.0) mmol/L ABG O2 Saturation (95.0-99.0) % ABG O2 Content (0.0-44) ABG Base Excess (-2.0-3.0) mmol/L ABG Hemoglobin (12.0-16.0) gm/dl ABG Carboxyhemoglobin (0.0-5.0) % ABG Methemoglobin (0.0-1.5) % Oxyhemoglobin (95.0-99.0) % FiO2 % Sodium 128 L (137-145) mmol/L Potassium 7.3 H* (3.6-5.0) mmol/L Chloride 90.1 L (98-107) mmol/L Carbon Dioxide 16 L (22-30) mmol/L Anion Gap 29 mmol/L BUN 114 H (7-17) mg/dL Creatinine 8.2 H (0.6-1.2) mg/dL Estimated GFR 6 ml/min BUN/Creatinine Ratio 14 % Glucose 95 (65-100) mg/dL Lactic Acid 3.50 H* (0.7-2.0) mmol/L Calcium 9.2 (8.4-10.2) mg/dL Magnesium (1.7-2.3) mg/dL Total Bilirubin 3.30 H (0.1-1.2) mg/dL AST 58 H (5-40) units/L ALT 16 (7-56) units/L Alkaline Phosphatase 163 H (35-129) units/L Ammonia (25-60) umol/L Troponin T (0.00-0.029) ng/mL Total Protein 5.9 L (6.3-8.2) g/dL Albumin 2.7 L (3.9-5) g/dL Albumin/Globulin Ratio 0.8 % Triglycerides (2-149) mg/dL Cholesterol (50-199) mg/dL LDL Cholesterol Direct HDL Cholesterol (40-59) mg/dL Cholesterol/HDL Ratio % TSH (0.270-4.200) mlU/mL Free T4 (0.76-1.46) ng/dL 12/19/21 12/19/21 12/19/21 Range/Units 16:57 16:57 16:57 WBC (4.5-11.0) K/mm3 RBC (3.65-5.03) M/mm3 Hgb (10.1-14.3) gm/dl Hct (30.3-42.9) % MCV (79-97) fl MCH (28-32) pg MCHC (30-34) % RDW (13.2-15.2) % Plt Count (140-440) K/mm3 Add Manual Diff Total Counted Seg Neuts % (Manual) (40.0-70.0) % Band Neutrophils % % Lymphocytes % (Manual) (13.4-35.0) % Reactive Lymphs % (Man) % Monocytes % (Manual) (0.0-7.3) % Eosinophils % (Manual) (0.0-4.3) % Basophils % (Manual) (0.0-1.8) % Metamyelocytes % % Myelocytes % % Promyelocytes % % Blast Cells % % Nucleated RBC % (0.0-0.9) % Seg Neutrophils # Man (1.8-7.7) K/mm3 Band Neutrophils # K/mm3 Lymphocytes # (Manual) (1.2-5.4) K/mm3 Abs React Lymphs (Man) K/mm3 Monocytes # (Manual) (0.0-0.8) K/mm3 Eosinophils # (Manual) (0.0-0.4) K/mm3 Basophils # (Manual) (0.0-0.1) K/mm3 Metamyelocytes # K/mm3 Myelocytes # K/mm3 Promyelocytes # K/mm3 Blast Cells # K/mm3 WBC Morphology Hypersegmented Neuts Hyposegmented Neuts Hypogranular Neuts Smudge Cells Toxic Granulation Toxic Vacuolation Dohle Bodies Pelger-Huet Anomaly Cosme Rods Platelet Estimate Clumped Platelets Plt Clumps, EDTA Large Platelets Giant Platelets Platelet Satelliting Plt Morphology Comment RBC Morphology Dimorphic RBCs Polychromasia Hypochromasia Poikilocytosis Anisocytosis Microcytosis Macrocytosis Spherocytes Pappenheimer Bodies Sickle Cells Target Cells Tear Drop Cells Ovalocytes Helmet Cells [place] Bodies [place] Rings [place] Cells Bite Cells Crenated Cell Elliptocytes Acanthocytes (Spur) Rouleaux Hemoglobin C Crystals Schistocytes Malaria parasites Jozef Bodies Hem Pathologist Commnt ABG pH (7.350-7.450) pH Units ABG pCO2 mm Hg ABG pO2 (80.0-90.0) mm Hg ABG HCO3 (20.0-26.0) mmol/L ABG O2 Saturation (95.0-99.0) % ABG O2 Content (0.0-44) ABG Base Excess (-2.0-3.0) mmol/L ABG Hemoglobin (12.0-16.0) gm/dl ABG Carboxyhemoglobin (0.0-5.0) % ABG Methemoglobin (0.0-1.5) % Oxyhemoglobin (95.0-99.0) % FiO2 % Sodium (137-145) mmol/L Potassium (3.6-5.0) mmol/L Chloride (98-107) mmol/L Carbon Dioxide (22-30) mmol/L Anion Gap mmol/L BUN (7-17) mg/dL Creatinine (0.6-1.2) mg/dL Estimated GFR ml/min BUN/Creatinine Ratio % Glucose (65-100) mg/dL Lactic Acid (0.7-2.0) mmol/L Calcium (8.4-10.2) mg/dL Magnesium 2.20 (1.7-2.3) mg/dL Total Bilirubin (0.1-1.2) mg/dL AST (5-40) units/L ALT (7-56) units/L Alkaline Phosphatase (35-129) units/L Ammonia 25.0 (25-60) umol/L Troponin T (0.00-0.029) ng/mL Total Protein (6.3-8.2) g/dL Albumin (3.9-5) g/dL Albumin/Globulin Ratio % Triglycerides (2-149) mg/dL Cholesterol (50-199) mg/dL LDL Cholesterol Direct HDL Cholesterol (40-59) mg/dL Cholesterol/HDL Ratio % TSH 1.810 (0.270-4.200) mlU/mL Free T4 0.47 L (0.76-1.46) ng/dL 12/19/21 12/19/21 Range/Units 16:57 17:12 WBC (4.5-11.0) K/mm3 RBC (3.65-5.03) M/mm3 Hgb (10.1-14.3) gm/dl Hct (30.3-42.9) % MCV (79-97) fl MCH (28-32) pg MCHC (30-34) % RDW (13.2-15.2) % Plt Count (140-440) K/mm3 Add Manual Diff Total Counted Seg Neuts % (Manual) (40.0-70.0) % Band Neutrophils % % Lymphocytes % (Manual) (13.4-35.0) % Reactive Lymphs % (Man) % Monocytes % (Manual) (0.0-7.3) % Eosinophils % (Manual) (0.0-4.3) % Basophils % (Manual) (0.0-1.8) % Metamyelocytes % % Myelocytes % % Promyelocytes % % Blast Cells % % Nucleated RBC % (0.0-0.9) % Seg Neutrophils # Man (1.8-7.7) K/mm3 Band Neutrophils # K/mm3 Lymphocytes # (Manual) (1.2-5.4) K/mm3 Abs React Lymphs (Man) K/mm3 Monocytes # (Manual) (0.0-0.8) K/mm3 Eosinophils # (Manual) (0.0-0.4) K/mm3 Basophils # (Manual) (0.0-0.1) K/mm3 Metamyelocytes # K/mm3 Myelocytes # K/mm3 Promyelocytes # K/mm3 Blast Cells # K/mm3 WBC Morphology Hypersegmented Neuts Hyposegmented Neuts Hypogranular Neuts Smudge Cells Toxic Granulation Toxic Vacuolation Dohle Bodies Pelger-Huet Anomaly Cosme Rods Platelet Estimate Clumped Platelets Plt Clumps, EDTA Large Platelets Giant Platelets Platelet Satelliting Plt Morphology Comment RBC Morphology Dimorphic RBCs Polychromasia Hypochromasia Poikilocytosis Anisocytosis Microcytosis Macrocytosis Spherocytes Pappenheimer Bodies Sickle Cells Target Cells Tear Drop Cells Ovalocytes Helmet Cells [place] Bodies [place] Rings Angel[place] Cells Bite Cells Crenated Cell Elliptocytes Acanthocytes (Spur) Rouleaux Hemoglobin C Crystals Schistocytes Malaria parasites Jozef Bodies Hem Pathologist Commnt ABG pH 7.384 (7.350-7.450) pH Units ABG pCO2 29.3 mm Hg ABG pO2 136.3 H (80.0-90.0) mm Hg ABG HCO3 17.1 L (20.0-26.0) mmol/L ABG O2 Saturation 98.7 (95.0-99.0) % ABG O2 Content 13.4 (0.0-44) ABG Base Excess -6.9 L (-2.0-3.0) mmol/L ABG Hemoglobin 9.7 L (12.0-16.0) gm/dl ABG Carboxyhemoglobin 2.1 (0.0-5.0) % ABG Methemoglobin 0.5 (0.0-1.5) % Oxyhemoglobin 96.1 (95.0-99.0) % FiO2 100 % Sodium (137-145) mmol/L Potassium (3.6-5.0) mmol/L Chloride (98-107) mmol/L Carbon Dioxide (22-30) mmol/L Anion Gap mmol/L BUN (7-17) mg/dL Creatinine (0.6-1.2) mg/dL Estimated GFR ml/min BUN/Creatinine Ratio % Glucose (65-100) mg/dL Lactic Acid (0.7-2.0) mmol/L Calcium (8.4-10.2) mg/dL Magnesium (1.7-2.3) mg/dL Total Bilirubin (0.1-1.2) mg/dL AST (5-40) units/L ALT (7-56) units/L Alkaline Phosphatase (35-129) units/L Ammonia (25-60) umol/L Troponin T 1.330 H* (0.00-0.029) ng/mL Total Protein (6.3-8.2) g/dL Albumin (3.9-5) g/dL Albumin/Globulin Ratio % Triglycerides 442 H (2-149) mg/dL Cholesterol 185 (50-199) mg/dL LDL Cholesterol Direct TNR HDL Cholesterol 12 L (40-59) mg/dL Cholesterol/HDL Ratio 15.41 % TSH (0.270-4.200) mlU/mL Free T4 (0.76-1.46) ng/dL - EKG Data -: EKG Interpreted by Fl EKG shows normal: sinus rhythm, ST-T waves (Peaked T waves, no STEMI) Rate: bradycardia (43) - Radiology Data Radiology results: report reviewed CHEST 1 VIEW INDICATION / CLINICAL INFORMATION: ams, bradycardy, esrd STUDY TIME: 1625 COMPARISON: 09/08/2021 FINDINGS: SUPPORT DEVICES: Large bore multilumen catheter appears unchanged HEART / MEDIASTINUM: Stable. LUNGS / PLEURA: No significant acute pulmonary or pleural abnormality. No p neumothorax. ADDITIONAL FINDINGS: Moderate gaseous distention of the stomach - Medical Decision Making 56-year-old female presents to the hospital with signs of sepsis, bradycardia, and hypotension responsive to IV fluids. Patient has been noncompliant with di alysis. Patient has a significant leukocytosis. Treated with broad-spectrum antibiotics cefepime and vancomycin. Chest x-ray without acute abnormality. Patient meets criteria for emergent dialysis and nephrology was consulted and placed emergent dialysis orders. Hyperkalemia is likely the cause of bradycardia and peaked T wave findings on EKG. Patient has a history of noncompliance and refusal of dialysis in the past. Hospitalist to admit ABG reveals a compensated metabolic acidosis (secondary respiratory alkalosis noted) Case discussed with Dr. Gutierrez who will admit patient to ICU Critical Care Time: Yes Critical care time in (mins) excluding proc time.: 35 Critical care attestation.: If time is entered above; I have spent that time in minutes in the direct care of this critically ill patient, excluding procedure time. Critical Care Time: 35 Minutes of critical care time excluding procedures were used in the care of the patient. I discussed treatment plan with the nursing team members. I reviewed electronic record. I spoke with family to obtain medical history. Patient required multiple interventions and reassessments. Spoke with hospitalist and consultants (critical care attending and international marketing specialist) to arrange emergent dialysis and ICU care ED Disposition Clinical Impression: Sepsis, Noncompliance with renal dialysis, ESRD needing dialysis, Hyperkalemia, Acute encephalopathy Disposition: ADMITTED INPATIENT Is pt being admited?: Yes Condition: Stable Time of Disposition: 19:11
[2021-12-19] MEDS ORDERED: VANCOMYCIN 1,250 MG in SODIUM CHLORIDE 0.9% 250ML 250 ML IV ONE (19:15)
--- NOTE | 2021-12-19 19:18 | History and Physical Report ---
History of Present Illness Chief complaint: She is confused History of present illness: 56 YO Female [facility] Res[facility] with ESRD on HD(T,R,Sa), DM, HTN, Deaf/Mute, Noncompliance, PVD S/P Revascularizaion, RLE Ischemia complicated by Rest Pain but patient refused Amputation as recommended by Vascular Surgery team, Chronic Extremity gangrene. Patient is deaf and mute and unable to provide detailed history. Patient history provided by EMS staff, ED staff, as well as long term facility staff. As per staff the patient was found to have increased weakness and confusion today. EMS was notified and upon arrival the patient was found to be in distress and subsequent transported to [facility] for further care and evaluation of the aforementioned symptoms. The patient was seen and evaluated in the emergency department. All lab and imaging studies reviewed. Patient found to have a systolic blood pressure in the 80s. Patient found to have sepsis suspected secondary to cellulitis, end-stage renal disease, metabolic acidosis, hyperkalemia. Nephrology team consulted. No reports of fever but denies chills, chest pain, palpitation, productive cough, skin rash, recent contact, known exposure to COVID-19. Prior admission on 09/08/2021 reviewed. All medication listed at time of admission has been reconciled. Advanced care planning conducted in ED. pa Past History Past Medical History: other (See HPI) Past Surgical History: Other (Dialysis access) Social history: single Family history: hypertension Medications and Allergies Allergies Allergy/AdvReac Type Severity Reaction Status Date / Time No Known Allergies Allergy Verified 12/19/21 16:14 Home Medications Medication Instructions Recorded Confirmed Last Taken Type Acetaminophen [Acetaminophen TAB] 650 mg PO Q4H PRN tablet 04/01/21 09/09/21 07/06/21 Rx Apixaban [Eliquis] 2.5 mg PO BID #180 07/07/21 09/09/21 09/08/21 09:00 Rx Furosemide [Lasix TAB] 20 mg PO QDAY #30 tablet 08/15/21 09/09/21 09/08/21 09:00 Rx ISOSORBIDE MONOnitrate [Imdur ER] 30 mg PO QDAY #30 tablet 08/15/21 09/09/21 09/08/21 09:00 Rx Pantoprazole [Protonix TAB] 20 mg PO QDAC tablet. 08/15/21 09/09/21 09/08/21 09:00 Rx Valsartan [Diovan] 80 mg PO QDAY 30 Days #30 tab 08/15/21 09/09/21 09/08/21 09:00 Rx carvediloL [Coreg] 25 mg PO Q12HR #60 tablet 08/15/21 09/09/21 09/09/21 09:00 Rx sevelamer HCL [Sevelamer HCl] 800 mg PO TID 30 Days #90 tab 08/15/21 09/09/21 09/08/21 09:00 Rx oxyCODONE /ACETAMINOPHEN [Percocet 1 tab PO Q4H PRN 5 Days #30 tablet 08/29/21 09/09/21 09/08/21 09:00 Rx 5/325 mg] NIFEdipine XL [Procardia Xl] 30 mg PO Q12HR #60 tablet 09/11/21 Unknown Rx ALPRAZolam [Xanax TAB] 0.25 mg PO Q8H PRN #12 tablet 09/12/21 Unknown Rx Clopidogrel [Plavix] 75 mg PO QDAY #90 tablet 09/12/21 Unknown Rx Lispro Insulin [HumaLOG] 0 unit SUB-Q ACHS units 09/12/21 Unknown Rx Pentoxifylline [TRENtal] 400 mg PO DAILY #90 tablet 09/12/21 Unknown Rx oxyCODONE /ACETAMINOPHEN [Percocet 1 tab PO Q6H PRN #10 tablet 09/12/21 Unknown Rx 5/325 mg] Venlafaxine [Effexor 37.5mg tab] 37.5 mg PO DAILY #30 tablet 09/15/21 Unknown Rx Active Meds: Active Medications Vancomycin HCl 1,250 mg/ (Sodium Chloride) 275 mls @ 166.667 mls/hr IV ONCE ONE Stop: 12/19/21 20:53 Review of Systems ROS unobtainable: due to mental status Exam - Constitutional Vitals: Temp Pulse Resp BP Pulse Ox 100.2 F H 46 L 27 H 99/31 100 12/19/21 18:13 12/19/21 18:46 12/19/21 18:46 12/19/21 18:46 12/19/21 18:46 General appearance: Present: mild distress - EENT Eyes: Present: PERRL ENT: hearing intact, clear oral mucosa, hearing decreased - Neck Neck: Present: supple, normal ROM - Respiratory Respiratory effort: normal Respiratory: bilateral: CTA - Cardiovascular Heart Sounds: Present: S1 & S2. Absent: rub, click - Extremities Extremities: pulses symmetrical, No edema Peripheral Pulses: abnormal (Capillary refill greater than 3.5 seconds) - Abdominal General gastrointestinal: Present: soft, non-tender, non-distended, normal bowel sounds Female genitourinary: Present: normal - Integumentary Integumentary: Present: clear, warm, dry - Musculoskeletal Musculoskeletal: generalized weakness - Psychiatric Psychiatric: no appropriate mood/affect, no intact judgment & insight, no memory intact - Neurologic Neurologic: CNII-XII intact, moves all extremities, no gait normal HEART Score - HEART Score Troponin: Troponin T 1.330 ng/mL (0.00-0.029) H* 12/19/21 16:57 Results - Labs CBC & Chem 7: 12/19/21 16:57 12/19/21 16:57 Labs: Abnormal lab results 12/19/21 12/19/21 12/19/21 Range/Units 16:57 16:57 16:57 WBC 20.9 H (4.5-11.0) K/mm3 MCH 26 L (28-32) pg RDW 18.6 H (13.2-15.2) % ABG pO2 (80.0-90.0) mm Hg ABG HCO3 (20.0-26.0) mmol/L ABG Base Excess (-2.0-3.0) mmol/L ABG Hemoglobin (12.0-16.0) gm/dl Sodium 128 L (137-145) mmol/L Potassium 7.3 H* (3.6-5.0) mmol/L Chloride 90.1 L (98-107) mmol/L Carbon Dioxide 16 L (22-30) mmol/L BUN 114 H (7-17) mg/dL Creatinine 8.2 H (0.6-1.2) mg/dL Lactic Acid 3.50 H* (0.7-2.0) mmol/L Total Bilirubin 3.30 H (0.1-1.2) mg/dL AST 58 H (5-40) units/L Alkaline Phosphatase 163 H (35-129) units/L Troponin T (0.00-0.029) ng/mL Total Protein 5.9 L (6.3-8.2) g/dL Albumin 2.7 L (3.9-5) g/dL Free T4 (0.76-1.46) ng/dL 12/19/21 12/19/21 12/19/21 Range/Units 16:57 16:57 17:12 WBC (4.5-11.0) K/mm3 MCH (28-32) pg RDW (13.2-15.2) % ABG pO2 136.3 H (80.0-90.0) mm Hg ABG HCO3 17.1 L (20.0-26.0) mmol/L ABG Base Excess -6.9 L (-2.0-3.0) mmol/L ABG Hemoglobin 9.7 L (12.0-16.0) gm/dl Sodium (137-145) mmol/L Potassium (3.6-5.0) mmol/L Chloride (98-107) mmol/L Carbon Dioxide (22-30) mmol/L BUN (7-17) mg/dL Creatinine (0.6-1.2) mg/dL Lactic Acid (0.7-2.0) mmol/L Total Bilirubin (0.1-1.2) mg/dL AST (5-40) units/L Alkaline Phosphatase (35-129) units/L Troponin T 1.330 H* (0.00-0.029) ng/mL Total Protein (6.3-8.2) g/dL Albumin (3.9-5) g/dL Free T4 0.47 L (0.76-1.46) ng/dL Assessment and Plan - Patient Problems (1) Sepsis Current Visit: Yes Status: Acute Plan to address problem: Sepsis protocol: IV antibiotic therapy, maintain mean arterial pressure greater than equal to 60, serial lactic acid level, IV fluid resuscitation therapy as clinically indicated, IV antibiotic therapy, IV pressor support as clinically indicated. The high probability of a clinically significant, sudden or life threatening deterioration of the [renal, cardiac, pulmonary, neuro, infectious disease] system(s) required my full and direct attention, intervention and personal management. The aggregate critical care time was [95] minutes. This time is in addition to time spent performing reported procedures but includes the following: [x] Data Review and interpretation [x] Patient assessment and monitoring of vital signs [x] Documentation [x] Medication orders and management (2) Toxic metabolic encephalopathy Current Visit: Yes Status: Acute Plan to address problem: Treat sepsis, IV fluid resuscitation therapy, supportive care. Neurochecks. (3) Hyperkalemia Current Visit: Yes Status: Acute Plan to address problem: Calcium gluconate, Kayexalate, urgent dialysis (4) End stage renal disease Current Visit: Yes Status: Acute Plan to address problem: Nephrology team consulted in ED, urgent dialysis per renal team. (5) Metabolic acidosis Current Visit: Yes Status: Acute Plan to address problem: Urgent dialysis, serial lactic acid level (6) Malnutrition Current Visit: Yes Status: Acute Qualifiers: Malnutrition type: protein-calorie malnutrition Plan to address problem: Increase protein intake when awake and alert only, dietary supplementation (7) DVT prophylaxis Current Visit: Yes Status: Acute Plan to address problem: SCD to bilateral lower extremities while in bed (8) Advanced care planning/counseling discussion Current Visit: Yes Status: Acute Plan to address problem: Disease education conducted, care plan discussed, diagnoses discussed, +30 minutes. (9) Preventative health care Current Visit: Yes Status: Acute Plan to address problem: Patient to follow-up with primary care physician for all age and risk factor appropriate screening test. +30 minutes.
[2021-12-19 19:22] LABS: Chol/HDL Ratio 15.41 %; HDL Cholesterol 12 mg/dL (40-59); LDL Cholesterol,Direct TNR mg/dL (50-130)
[2021-12-19] MEDS ORDERED: oxyCODONE /ACETAMINOPHEN 5-325MG TAB PO PRN (19:40)
[2021-12-19] MEDS ORDERED: HYDROmorphone 0.5 MG/0.5 ML INJ IV PRN (19:40)
[2021-12-19] MEDS ORDERED: ALBUTEROL 2.5 MG/3 ML NEBU IH PRN (19:40)
[2021-12-19] MEDS ORDERED: ACETAMINOPHEN 325 MG TAB PO PRN (20:00)
[2021-12-19 20:37] LABS: Band Neutrophils # (Manual) 1.3 K/mm3; Basophils % (Manual) 0 % (0.0-1.8); Eosinophils % (Manual) 0 % (0.0-4.3); Total Cells Counted 100
[2021-12-19 20:38] LABS: Hypochromasia Few; Platelet Estimate Consistent w Auto
[2021-12-19] MEDS ORDERED: SODIUM CHLORIDE 0.9% 250ML 250 ML IV ONE (21:54)
[2021-12-19 22:17] LABS: Bilirubin,Urine NEG (Negative); Blood,Urine SM (Negative); Color,Urine Amber (Yellow); Urobilinogen,Urine < 2 mg/dL (<2.0)
[2021-12-19 22:21] LABS: Bacteria,Urine 1+ /HPF (Negative); Mucus,Urine FEW /HPF
== END 2021-12-19 23:30 | disposition still patient (30) | DRG 871 ==
LOC: ED 15:59 → CC1 19:40
PROVIDERS: ADMIT Internal Medicine; ATTEND Internal Medicine
DX: A41.9 Sepsis, unspecified organism (principal); N18.6 End stage renal disease; E87.5 Hyperkalemia
CPT/HCPCS: 36415; 71045; 80053; 80061; 81001; 82140; 82803; 83735; 84439; 84443; 84484; 85007; 85025; 87040; 93005; 94644; G0378; J3490; Q9967; J0610; J0692; J1815; J3370; J7040; J7050